=== PATIENT | male | born 1955 | race Caucasian/White ===

== ENCOUNTER → 2016-06-04 | Outpatient (CLI) | payer MEDICARE ==
[2016-06-04 13:54] LABS: Basophils % (A) 0 %; CH 28.2; CHCM 32.2; Eosinophils # (A) 0.2 k/uL (0-0.7); Eosinophils % (A) 2 %; HCT 45.1 % (39.0-53.0); HDW 2.77; HGB 14.4 gm/dL (13.0-17.5); Luc # (Auto) 0.23; Luc % (Auto) 2; Lymphocytes # (A) 2.4 k/uL (1.0-4.8); Lymphocytes % (A) 22 %; MCH 28.2 pg (25.0-35.0); Mean Platelet Volume 7.7; Monocytes # (A) 0.4 k/uL (0-1.0); Monocytes % (A) 4 %; Neutrophils # (A) 7.6 k/uL (1.3-7.7); Neutrophils % (A) 70 %; RBC 5.12 m/uL (4.30-5.90); RDW 12.5 % (11.5-15.5); WBC 10.8 k/uL (3.8-10.6); WBC (Perox) 10.88
[2016-06-04 14:05] LABS: Anion Gap 12 mmol/L; Blood Urea Nitrogen 17 mg/dL (9-20); Carbon Dioxide 29 mmol/L (22-30); Chloride 100 mmol/L (98-107); Non-African American GFR(MDRD) >60 (>60 ml/min/1.73 sqM); Sodium 141 mmol/L (137-145)
== END | disposition home or self-care (01) ==
LOC: LABPAT 13:03
PROVIDERS: ATTEND Internal Medicine Interventional Cardiology
DX: Z01.812 Encounter for preprocedural laboratory examination (principal); E78.00 Pure hypercholesterolemia, unspecified; I25.10 Atherosclerotic heart disease of native coronary artery without angina pectoris; I10 Essential (primary) hypertension
CPT/HCPCS: 80051; 82565; 84520; 85025

== ENCOUNTER 2016-06-10 05:59 | Day surgery (SDC) | payer MEDICARE, OTHER ==
[2016-06-08 10:02] VITALS: BMI 35.2
[~2016-06-10 05:59] MED LIST: ALPRAZolam 0.25 MG TAB PO PRN; ALPRAZolam 0.5 MG TAB PO PRN; ASPIRIN 325 MG TAB PO STA; ATORVASTATIN 80 MG TAB PO STA; NITROGLYCERIN SL TABS 0.4 MG TAB SUBLINGUAL PRN; SODIUM CHLORIDE 0.9% 1,000 ML in EMPTY BAG 1 BAG IV ONE
[2016-06-10 06:45] LABS: Glucose,Whole Blood 223 mg/dL (75-99)
[2016-06-10] MEDS ORDERED: SODIUM CHLORIDE 0.9% 1,000 ML IV ONE (06:47)
[2016-06-10] MEDS ORDERED: amLODIPine 5 MG TAB PO STA (07:16)
[2016-06-10] MEDS ORDERED: INSULIN LISPRO (humaLOG) 300 UNIT/3 ML VIAL SQ ONE (07:17)
[2016-06-10] MEDS ORDERED: SODIUM CHLORIDE 0.9% (PF) 10 ML VIAL ONE (07:18)
[2016-06-10] MEDS ORDERED: VERAPAMIL 2.5 MG/ML 2 ML AMP ONE (07:18)
[2016-06-10] MEDS ORDERED: MIDAZOLAM 2 MG/2 ML VIAL ONE (07:18)
[2016-06-10] MEDS ORDERED: diphenhydrAMINE 50 MG/ML 1 ML VIAL ONE (07:18)
[2016-06-10] MEDS ORDERED: diphenhydrAMINE 50 MG/ML 1 ML VIAL IVP ONE (07:34)
[2016-06-10] MEDS: MIDAZOLAM 2 MG/2 ML VIAL IV ONE ×2 (07:35→07:49)
[2016-06-10] MEDS ORDERED: LIDOCAINE 2% INJ 20 MG/ML SQ ONE (07:37)
[2016-06-10] MEDS: NITROGLYCERIN 1000MCG/10ML SYRINGE INTRACORON ONE ×3 (08:02→08:55)
[2016-06-10] MEDS ORDERED: BIVALIRUDIN 250 MG in SODIUM CHLORIDE 0.9% 50 ML IV ONE ×2 (08:16→08:53)
[2016-06-10] MEDS ORDERED: BIVALIRUDIN BOLUS 250 MG/50 ML IV ONE (08:16)
[2016-06-10] MEDS ORDERED: HYDROmorphone 2 MG/ML 1 ML SYRINGE ONE (08:56)
[2016-06-10] MEDS ORDERED: HYDROmorphone 2 MG/ML 1 ML SYRINGE IV ONE (08:58)
[2016-06-10] MEDS ORDERED: IOHEXOL 350 MG/ML 100 ML BOTTLE INJ ONE (08:58)
[2016-06-10] MEDS ORDERED: amLODIPine 5 MG TAB ONE (09:01)
[2016-06-10] MEDS ORDERED: CLOPIDOGREL 75 MG TAB ONE (09:02)
[2016-06-10] MEDS ORDERED: CLOPIDOGREL 75 MG TAB PO ONE (09:04)
[2016-06-10] MEDS ORDERED: NITROGLYCERIN SL TABS 0.4 MG TAB SUBLINGUAL ONE ×2 (09:04)
[2016-06-10] MEDS ORDERED: amLODIPine 5 MG TAB PO ONE (09:04)
[2016-06-10] MEDS ORDERED: NITROGLYCERIN SL TABS 0.4 MG TAB SUBLINGUAL PRN ×2 (09:08→09:12)
[2016-06-10] MEDS ORDERED: RX INFO: IV CONTRAST WAS GIVEN 1 EACH MISC MISCELLANE PRN (09:08)
[2016-06-10] MEDS ORDERED: ATROPINE SULFATE 0.1 MG/ML 10ML SYRINGE IV PRN (09:08)
[2016-06-10] MEDS ORDERED: MAG HYDROX/AL HYDROX/SIMETH 30 ML CUP PO PRN (09:08)
[2016-06-10] MEDS: SODIUM CHLORIDE 0.9% 1,000 ML IV SCH ×2 (09:15→22:35)
[2016-06-10] MEDS ORDERED: ACETAMINOPHEN TAB 325 MG TAB PO STA ×2 (09:38→09:39)
[2016-06-10] MEDS ORDERED: NITROGLYCERIN SL TABS 0.4 MG TAB SUBLINGUAL STA (11:50)
[2016-06-10] MEDS ORDERED: MIDAZOLAM 2 MG/2 ML VIAL IV ONE (11:59)
[2016-06-10] MEDS: INSULIN LISPRO (humaLOG) 300 UNIT/3 ML VIAL SQ SCH ×2 (14:32→17:19)
[2016-06-10] MEDS: oxyCODONE-APAP 10-325MG 1 EACH TAB PO PRN ×2 (14:33→23:22)
[2016-06-10 16:57] LABS: Glucose,Whole Blood 248 mg/dL (75-99)
[2016-06-10] MEDS ORDERED: ACETAMINOPHEN TAB 325 MG TAB PO PRN (19:42)
[2016-06-10] MEDS: PREGABALIN 100 MG CAP PO SCH (20:51)
[2016-06-10] MEDS: METOPROLOL TARTRATE 25 MG TAB PO SCH (20:51)
[2016-06-10] MEDS ORDERED: INSULIN DETEMIR 100 UNIT/ML 10 ML VIAL SQ SCH (21:00)
[2016-06-10] MEDS ORDERED: QUEtiapine 25 MG TAB PO SCH (21:00)
[2016-06-10] MEDS ORDERED: PRAVASTATIN SODIUM 80 MG TAB PO SCH (21:00)
[2016-06-10] MEDS ORDERED: ZOLPIDEM 5 MG TAB PO PRN (21:00)
[2016-06-10 21:34] LABS: Glucose,Whole Blood 151 mg/dL (75-99)
[2016-06-11 03:15] LABS: Glucose,Whole Blood 230 mg/dL (75-99)
[2016-06-11 06:30] LABS: Glucose,Whole Blood 212 mg/dL (75-99)
[2016-06-11 06:31] LABS: Basophils % (A) 0 %; CH 28.2; CHCM 32.5; Eosinophils # (A) 0.2 k/uL (0-0.7); Eosinophils % (A) 2 %; HCT 39.7 % (39.0-53.0); HDW 2.81; HGB 12.7 gm/dL (13.0-17.5); Luc # (Auto) 0.24; Luc % (Auto) 2; Lymphocytes # (A) 2.2 k/uL (1.0-4.8); Lymphocytes % (A) 22 %; MCHC 32.1 g/dL (31.0-37.0); Mean Platelet Volume 7.6; Monocytes # (A) 0.6 k/uL (0-1.0); Monocytes % (A) 6 %; Neutrophils # (A) 6.6 k/uL (1.3-7.7); Neutrophils % (A) 67 %; RBC 4.56 m/uL (4.30-5.90); RDW 12.7 % (11.5-15.5); WBC 9.9 k/uL (3.8-10.6); WBC (Perox) 10.74
[2016-06-11 06:47] LABS: Anion Gap 8 mmol/L; Blood Urea Nitrogen 13 mg/dL (9-20); Carbon Dioxide 29 mmol/L (22-30); Chloride 103 mmol/L (98-107); Glucose 214 mg/dL (74-99); Non-African American GFR(MDRD) >60 (>60 ml/min/1.73 sqM); Potassium 4.8 mmol/L (3.5-5.1); Sodium 140 mmol/L (137-145)
[2016-06-11] MEDS: INSULIN LISPRO (humaLOG) 300 UNIT/3 ML VIAL SQ SCH (07:02)
--- NOTE | 2016-06-11 07:50 | CC ---
DATE OF SERVICE: 06/10/2016 PROCEDURE: Left heart catheterization and coronary angiography. PERFORMED BY: Dr. Marycruz Martinez. CLINICAL INFORMATION: Mr. Jeremiah Pedroza is a 61-year-old gentleman with a history of diabetes mellitus, prior myocardial infarction, status post PTCA and stenting of mid RCA as well as PDA branch of RCA, which was performed in 2006 and 2010 respectively. He was hospitalized at [facility] with symptoms of nondescript chest discomfort and had a mild troponin elevation and also had pneumonia at that time. He was treated medically and then I performed a stress test as an outpatient which revealed a moderate area of reversible defect involving the inferolateral wall of the left ventricle which was a new finding compared to his previous stress test. He was therefore advised cardiac catheterization. He was also advised that he would have intervention based on findings. Yovany test was performed and it was found that his right radial artery was not suitable for coronary angiography. PROCEDURE NOTE: Under strict aseptic precautions and local anesthesia, a 6 Italian introducer was placed in the right femoral artery. I had considerable difficulty because of advancing the wire and there was heavy calcification of his femoral system. However, using a Amplatz wire, I was able to advance a 6 Italian introducer. There was a small hematoma noted. Using standard Luis Angel catheters, I performed coronary angiography and I noted that there was a significant new lesion in the circumflex vessel and he was advised intervention in the same setting. An LV gram was not performed but LV pressures were checked. CARDIAC CATHETERIZATION FINDINGS: The left ventricular end-diastolic pressure was about 14 mmHg and there was no gradient across the aortic valve. CORONARY ANGIOGRAPHIC FINDINGS. RIGHT CORONARY ARTERY: This is a dominant vessel, which is widely patent in the midportion and the PDA at the site of previous stenting. There are, however, multiple areas of 30% to 35% narrowing throughout the RCA and its branches. The PDA has about a 50% stenosis in the mid portion as well. There is diffuse disease in the dominant RCA, but the stented areas are widely patent and there are no critical lesions. LEFT MAIN CORONARY ARTERY: A short, patent, disease-free vessel that bifurcates into LAD and circumflex. LEFT ANTERIOR DESCENDING CORONARY ARTERY: Good caliber vessel extends along the anterior wall. In the mid portion, it gives off a diagonal branch, which has about a 40% to 50% narrowing. The LAD itself has no more than 30% to 40% narrowing, it runs all the way to the apex, supplies a sizable amount of myocardium. While there is diffuse disease in the LAD, there are no critical blockages and the diagonal disease also appears to be unchanged compared to the previous study from 2011. LEFT POSTERIOR CIRCUMFLEX CORONARY ARTERY: This is a nondominant vessel that gives off a left atrial circumflex branch and continues as an obtuse marginal branch. This obtuse marginal branch gives off a groove branch. This groove branch has a 99% stenosis with calcification but the vessel is small in caliber, diffusely diseased and distribution is small to moderate area. The continuation of the obtuse marginal which continues really as a circumflex vessel, has a long area of eccentric narrowing of about 80% and the vessel is highly diseased throughout but distally it is a large distribution vessel, with diffuse disease. The focal lesion is located after the groove branch and is about 70% to 80% heavily calcified, eccentric in appearance. FINAL IMPRESSION: This patient has a widely patent RCA and PDA at the site of previous stenting but there are diffuse areas noncritical narrowing in the dominant RCA. LAD and left main are free of significant disease, but there is evidence of diffuse noncritical narrowing in the LAD system. Circumflex is nondominant. It has a new 70% to 80% mid lesion after a left atrial circumflex branch. The groove branch has a 95% stenosis with calcification and the vessel is diffusely diseased. Left ventriculogram was not performed but LV pressures are acceptable and there is no gradient across the aortic valve. RECOMMENDATIONS: I am recommending intervention of the circumflex vessel and I proceeded to perform this in the same setting.
--- NOTE | 2016-06-11 07:56 | PTCA ---
DATE OF SERVICE: 06/10/2016 PROCEDURE: PTCA and stenting of the circumflex coronary artery. PERFORMED BY: Dr. Marycruz Martinez. CLINICAL INFORMATION: Mr. Jeremiah Pedroza is a 61-year-old gentleman with a history of diabetes mellitus, prior myocardial infarction, status post PTCA and stenting of mid RCA as well as PDA branch of RCA, which was performed in 2006 and 2010 respectively. He was hospitalized at [facility] with symptoms of nondescript chest discomfort and had a mild troponin elevation and also had pneumonia at that time. He was treated medically and then I performed a stress test as an outpatient which revealed a moderate area of reversible defect involving the inferolateral wall of the left ventricle which was a new finding compared to his previous stress test. He was therefore advised cardiac catheterization. He was also advised that he would have intervention based on findings. Yovany test was performed and it was found that his right radial artery was not suitable for coronary angiography. Following coronary angiography, I recommended intervention of the circumflex and proceeded to perform this in the same setting. PROCEDURE NOTE: The existing 6 Bruneian introducer in the right femoral artery was used to perform the procedure. A standard left Luis Angel-type guide catheter of 6 Bruneian caliber was used to cannulate the left coronary artery. A BMW wire was used to cross the lesion. Wire was kept distally. Using a 2.5 caliber, 12 mm balloon, I predilated the lesion at about 12 atmospheres. A noncompliant balloon was used because of calcification. I then deployed a 15 mm long, 2.5 caliber Xience stent at 12 atmospheres. Patient had an excellent angiographic result, but the proximal end revealed a small flap. I advanced another Whisper wire and tried to gain access into the groove branch, but I had considerable difficulty because of the angulation of the groove branch as it came off from the circumflex vessel. I therefore decided to stent across the groove branch with the understanding that he may have a branch vessel occlusion because of significant ostial lesion. I explained this to the patient and proceeded to deploy another stent. I used a 2.25 caliber, 15 mm long Xience stent and deployed this telescoping into the previously placed 2.5 caliber stent. This was deployed at 12 atmospheres. Excellent angiographic result was achieved. There was a transient occlusion of the groove branch, but after additional nitroglycerin and injections, there was already restored flow in the groove branch. Excellent angiographic result was noted without complication. Patient did not have any significant chest discomfort. He had transient jaw pain and subtle inferior ST segment changes. He received Angiomax bolus and infusion. He was already on Plavix and received an additional 150 mg orally. The sheath was sutured and patient was sent to the room in stable condition. Excellent angiographic result was achieved without complication.
--- NOTE | 2016-06-11 08:00 | LTR ---
June 10, 2016 EMMIE SUTOTN DO RE: Jeremiah Pedroza Dear Dr. Sutton: Thank you for the opportunity to participate in the care of Mr. Jeremiah Pedroza. I am pleased to report to you that he had an excellent angiographic result. This gentleman's previously stented RCA was patent as was the PDA branch of RCA. New lesion in the circumflex was addressed with a drug-eluting stent. He should be on aspirin and Plavix without interruption at least for one year. Please find enclosed my detailed cardiac catheterization and PTCA report for your records. Thank you for your referral. Please call for questions. With kindest regards. Sincerely yours, JULIET HOSKINS MD
[2016-06-11] MEDS: PREGABALIN 100 MG CAP PO SCH (08:11)
[2016-06-11] MEDS: METOPROLOL TARTRATE 25 MG TAB PO SCH (08:11)
[2016-06-11] MEDS: oxyCODONE-APAP 10-325MG 1 EACH TAB PO PRN (08:11)
[2016-06-11 08:21] VITALS: BP 173/79; PULSE 76; RESP 16; TEMP 98.1
[2016-06-11] MEDS ORDERED: ASPIRIN 81 MG CHEW PO SCH ×2 (09:00)
[2016-06-11] MEDS ORDERED: ESCITALOPRAM 10 MG TAB PO SCH (09:00)
[2016-06-11] MEDS ORDERED: CLOPIDOGREL 75 MG TAB PO SCH ×2 (09:00→09:11)
--- NOTE | 2016-06-11 22:43 | DS ---
DATE OF ADMISSION: 06/10/2016 DATE OF DISCHARGE: 06/11/2016 DIAGNOSES: 1. Unstable angina. 2. Type 2 diabetes. 3. Hypertension. 4. Hypercholesterolemia. 5. Peripheral arterial disease, status post percutaneous coronary intervention of right coronary artery. Mr. Jeremiah Pedroza was brought in electively for a cardiac cath, possible PCI, because of an abnormal stress test. He had an inferolateral moderate-sized reversible defect suggestive of progression of disease. He has had previous RCA PCI in 2006 and 2010 involving the mid RCA and PDA branch of RCA. Coronary angiography revealed that the RCA and PDA were patent, but there was a new lesion in the circumflex, and this was addressed with 2 drug-eluting stents. Excellent angiographic result was achieved without complication. There was some difficulty with the groin access because of peripheral arterial disease, but there was no hematoma. The groin is clean and dry and soft. There is no bruit. This morning he is asymptomatic, ambulating without symptoms. Laboratory data and EKG are unremarkable. Blood pressure is 140/70. Pulse rate is about 70 per minute. S1, S2 heard normally. Lungs are clear. Abdomen and lower extremity exam is unchanged. Right groin is clean and dry. Central nervous system is normal. I am recommending that he can be discharged today after ambulation. Discharge instructions regarding activity, diet and medications were given, and he has an appointment to see me on June 15 at 8:30 a.m.
== END 2016-06-11 10:10 | disposition home or self-care (01) ==
LOC: CATHCVL 05:59 → 6SEL 09:14 → CATHCVL 06-11 10:10
PROVIDERS: ATTEND Internal Medicine Interventional Cardiology
DX: I25.110 Atherosclerotic heart disease of native coronary artery with unstable angina pectoris (principal); R94.39 Abnormal result of other cardiovascular function study; Z95.5 Presence of coronary angioplasty implant and graft; I25.2 Old myocardial infarction; E78.00 Pure hypercholesterolemia, unspecified; I10 Essential (primary) hypertension; E11.9 Type 2 diabetes mellitus without complications; E78.5 Hyperlipidemia, unspecified; I73.9 Peripheral vascular disease, unspecified; Z95.820 Peripheral vascular angioplasty status with implants and grafts; Z79.4 Long term (current) use of insulin; Z79.01 Long term (current) use of anticoagulants; Z79.84 Long term (current) use of oral hypoglycemic drugs; Z79.82 Long term (current) use of aspirin; Z79.891 Long term (current) use of opiate analgesic; Z79.899 Other long term (current) drug therapy; Z88.1 Allergy status to other antibiotic agents; Z87.891 Personal history of nicotine dependence
CPT/HCPCS: 93458; 80048; 85025; C9600; C1769 ×7; C1725; C1894 ×2; C1874; J2001; J2250; J1170; J1200; Q9967; J0583

== ENCOUNTER 2016-08-06 14:49 | Inpatient (IN) | payer MEDICARE, OTHER ==
[2016-08-06 14:59] VITALS: RESP 18
[2016-08-06] MEDS ORDERED: SODIUM CHLORIDE 0.9% 1,000 ML IV STA (15:16)
--- NOTE | 2016-08-06 15:29 | ED ---
Weakness HPI - General Chief complaint: Weakness Stated complaint: weakness Time Seen by Provider: 08/06/16 15:16 Source: EMS Mode of arrival: EMS - History of Present Illness Initial comments: Jonathan noticed there was a change in mental status he feels quite weak he said he has a hard time remembering what happened over the last 24 hours he denies any fall he does have a history of back pain and he does take Valium and Percocet for the period he denies any headaches no neck stiffness no blurred vision no slurred speech no abdominal pain no frequency urgency dysuria. He does have a history of heart disease he has a multiple stents in place. He denies any chest pain today no pleuritic chest pain no abdominal pain no frequency urgency dysuria no sinus symptoms of TIA or CVA - Related Data Home Medications Medication Instructions Recorded Confirmed Metoprolol Tartrate [Lopressor] 25 mg PO BID 10/26/13 08/06/16 Clopidogrel [Plavix] 75 mg PO DAILY 01/10/14 08/06/16 Nitroglycerin Sl Tabs [Nitrostat] 0.4 mg SUBLINGUAL Q5M PRN 01/10/14 08/06/16 Insulin Detemir [Levemir] 40 units INJ HS 06/08/16 08/06/16 Pravastatin Sodium [Pravachol] 80 mg PO HS 06/08/16 08/06/16 Pregabalin [Lyrica] 100 mg PO BID 06/08/16 08/06/16 oxyCODONE-APAP 10-325MG [Percocet 1 tab PO Q8H PRN 06/08/16 08/06/16 10-325 mg] Diazepam [Valium] 10 mg PO BID 08/06/16 08/06/16 Enalapril [Vasotec] 5 mg PO DAILY 08/06/16 08/06/16 Insulin Lispro [humaLOG Kwikpen] 12 unit SQ AC-TID 08/06/16 08/06/16 Naproxen 500 mg PO Q12HR 08/06/16 08/06/16 Omeprazole 20 mg PO DAILY 08/06/16 08/06/16 Allergies Allergy/AdvReac Type Severity Reaction Status Date / Time cephalexin monohydrate Allergy Nausea & Verified 08/06/16 15:11 [From Keflex] Vomiting & Diarrhea Review of Systems ROS Statement: Those systems with pertinent positive or pertinent negative responses have been documented in the HPI. ROS Other: All systems not noted in ROS Statement are negative. Past Medical History Past Medical History: Coronary Artery Disease (CAD), Chest Pain / Angina, CVA/ TIA, Diabetes Mellitus, GERD/Reflux, Hyperlipidemia, Hypertension, Memory Impairment Additional Past Medical History / Comment(s): ulcer in stomach , fell May 2013 and hit head and had a brain bleed-from possible TIA. History of Any Multi-Drug Resistant Organisms: MRSA Date of last positivie culture/infection: 2010 MDRO Source:: RESPIRATORY/UNSURE Past Surgical History: Heart Catheterization With Stent, Orthopedic Surgery, Tonsillectomy Additional Past Surgical History / Comment(s): bunionectomy, amy rotator cuff, HEART STENTS X3, LEFT LEG ARTERY X2 STENTS. COLONOSCOPY, Past Anesthesia/Blood Transfusion Reactions: Motion Sickness Date of Last Stent Placement:: 2006 Past Psychological History: Depression Smoking Status: Former smoker Past Alcohol Use History: None Reported Additional Past Alcohol Use History / Comment(s): QUIT SMOKING 2010, STARTED AT AGE [age] Past Drug Use History: None Reported - Past Family History Mother Family Medical History: No Reported History General Exam - General Exam Comments Initial Comments: General: The patient is awake and alert, in no distress, and does not appear acutely ill. GCS is 15 Skin: Skin is warm and dry and no rashes or lesions are noted. Eye: Pupils are equal, round and reactive to light, extra-ocular movements are intact; there is normal conjunctiva bilaterally. Ears, nose, mouth and throat: There are moist mucous membranes and no oral lesions. Neck: The neck is supple, there is no tenderness or JVD. Cardiovascular: There is a regular rate and rhythm. No murmur, rub or gallop is appreciated. Respiratory: To auscultation bilateral, no wheezing no rhonchi no distress respiratory mercedes noticed Gastrointestinal: Soft, tenderness noticed in the lower abdomen and right lower quadrant area and the left lower quadrant area Back: There is no tenderness to palpation in the midline. There is no obvious deformity. Musculoskeletal: Normal ROM, no tenderness, There is no pedal edema. There is no calf tenderness or swelling. No cords were appreciated. Neurological: CN II-XII intact, Cranial nerves III through XII are intact. There are no obvious motor or sensory deficits. Coordination appears grossly intact. Speech is normal. Psychiatric: Cooperative, appropriate mood & affect, normal judgment. Course Vital Signs 08/06/16 08/06/16 14:52 16:45 Temperature 98.5 F Pulse Rate 85 85 Respiratory 18 18 Rate Blood Pressure 142/68 130/63 O2 Sat by Pulse 99 Oximetry EKG Findings - EKG Comments: EKG Findings:: EKG is normal sinus rhythm ventricular rate is 82 ID interval is 154 QRS duration is 76 QT/QTc is 372/444 review of this EKG did not reveal any ST elevation or ST depression Medical Decision Making - Lab Data Result diagrams: 08/06/16 15:14 08/06/16 15:14 Lab Results 08/06/16 08/06/16 08/06/16 Range/Units 15:14 15:14 15:14 WBC 11.1 H (3.8-10.6) k/uL RBC 4.14 L (4.30-5.90) m/uL Hgb 11.9 L (13.0-17.5) gm/dL Hct 35.7 L (39.0-53.0) % MCV 86.2 (80.0-100.0) fL MCH 28.6 (25.0-35.0) pg MCHC 33.2 (31.0-37.0) g/dL RDW 13.6 (11.5-15.5) % Plt Count 248 (150-450) k/uL Neutrophils % 67 % Lymphocytes % 21 % Monocytes % 7 % Eosinophils % 2 % Basophils % 1 % Neutrophils # 7.5 (1.3-7.7) k/uL Lymphocytes # 2.3 (1.0-4.8) k/uL Monocytes # 0.8 (0-1.0) k/uL Eosinophils # 0.2 (0-0.7) k/uL Basophils # 0.1 (0-0.2) k/uL PT (9.0-12.0) sec INR (<1.1) APTT (22.0-30.0) sec Sodium 140 (137-145) mmol/L Potassium 5.6 H (3.5-5.1) mmol/L Chloride 106 (98-107) mmol/L Carbon Dioxide 22 (22-30) mmol/L Anion Gap 12 mmol/L BUN 33 H (9-20) mg/dL Creatinine 1.12 (0.66-1.25) mg/dL Est GFR (MDRD) Af Amer >60 (>60 ml/min/1.73 sqM) Est GFR (MDRD) Non-Af >60 (>60 ml/min/1.73 sqM) Glucose 160 H (74-99) mg/dL Calcium 9.2 (8.4-10.2) mg/dL Total Bilirubin 0.9 (0.2-1.3) mg/dL AST 59 (17-59) U/L ALT 30 (21-72) U/L Alkaline Phosphatase 99 (38-126) U/L Total Creatine Kinase 1268 H (55-170) U/L CK-MB (CK-2) 17.0 H* (0.0-2.4) ng/mL CK-MB (CK-2) Rel Index 1.3 Troponin I 0.694 H* (0.000-0.034) ng/mL Total Protein 6.4 (6.3-8.2) g/dL Albumin 3.6 (3.5-5.0) g/dL Urine Color Urine Appearance (Clear) Urine pH (5.0-8.0) Ur Specific [place] (1.001-1.035) Urine Protein (Negative) Urine Glucose (UA) (Negative) Urine Ketones (Negative) Urine Blood (Negative) Urine Nitrite (Negative) Urine Bilirubin (Negative) Urine Urobilinogen (<2.0) mg/dL Ur Leukocyte Esterase (Negative) Urine Opiates Screen (NotDetected) Ur Oxycodone Screen (NotDetected) Urine Methadone Screen (NotDetected) Ur Propoxyphene Screen (NotDetected) Ur Barbiturates Screen (NotDetected) U Tricyclic Antidepress (NotDetected) Ur Phencyclidine Scrn (NotDetected) Ur Amphetamines Screen (NotDetected) U Methamphetamines Scrn (NotDetected) U Benzodiazepines Scrn (NotDetected) Urine Cocaine Screen (NotDetected) U Marijuana (THC) Screen (NotDetected) 08/06/16 08/06/16 Range/Units 15:14 16:46 WBC (3.8-10.6) k/uL RBC (4.30-5.90) m/uL Hgb (13.0-17.5) gm/dL Hct (39.0-53.0) % MCV (80.0-100.0) fL MCH (25.0-35.0) pg MCHC (31.0-37.0) g/dL RDW (11.5-15.5) % Plt Count (150-450) k/uL Neutrophils % % Lymphocytes % % Monocytes % % Eosinophils % % Basophils % % Neutrophils # (1.3-7.7) k/uL Lymphocytes # (1.0-4.8) k/uL Monocytes # (0-1.0) k/uL Eosinophils # (0-0.7) k/uL Basophils # (0-0.2) k/uL PT 10.1 (9.0-12.0) sec INR 1.0 (<1.1) APTT 24.5 (22.0-30.0) sec Sodium (137-145) mmol/L Potassium (3.5-5.1) mmol/L Chloride (98-107) mmol/L Carbon Dioxide (22-30) mmol/L Anion Gap mmol/L BUN (9-20) mg/dL Creatinine (0.66-1.25) mg/dL Est GFR (MDRD) Af Amer (>60 ml/min/1.73 sqM) Est GFR (MDRD) Non-Af (>60 ml/min/1.73 sqM) Glucose (74-99) mg/dL Calcium (8.4-10.2) mg/dL Total Bilirubin (0.2-1.3) mg/dL AST (17-59) U/L ALT (21-72) U/L Alkaline Phosphatase (38-126) U/L Total Creatine Kinase (55-170) U/L CK-MB (CK-2) (0.0-2.4) ng/mL CK-MB (CK-2) Rel Index Troponin I (0.000-0.034) ng/mL Total Protein (6.3-8.2) g/dL Albumin (3.5-5.0) g/dL Urine Color Yellow Urine Appearance Clear (Clear) Urine pH 5.5 (5.0-8.0) Ur Specific [place] 1.012 (1.001-1.035) Urine Protein Negative (Negative) Urine Glucose (UA) 1+ H (Negative) Urine Ketones 1+ H (Negative) Urine Blood Negative (Negative) Urine Nitrite Negative (Negative) Urine Bilirubin Negative (Negative) Urine Urobilinogen <2.0 (<2.0) mg/dL Ur Leukocyte Esterase Negative (Negative) Urine Opiates Screen Not Detected (NotDetected) Ur Oxycodone Screen Detected H (NotDetected) Urine Methadone Screen Not Detected (NotDetected) Ur Propoxyphene Screen Not Detected (NotDetected) Ur Barbiturates Screen Not Detected (NotDetected) U Tricyclic Antidepress Detected H (NotDetected) Ur Phencyclidine Scrn Not Detected (NotDetected) Ur Amphetamines Screen Not Detected (NotDetected) U Methamphetamines Scrn Not Detected (NotDetected) U Benzodiazepines Scrn Detected H (NotDetected) Urine Cocaine Screen Not Detected (NotDetected) U Marijuana (THC) Screen Not Detected (NotDetected) Critical Care Time Total Critical Care Time: 45 Critical Care Time: Isn't presented with the amnesia and altered mental status, his head CT head CT was done and was unremarkable considering his history of coronary artery disease and his cardiac status was checked and her troponin is 0.6492 year no chest pain also noticed some elevated CK he was started on a fluid resuscitation and heparinize him with the bolus and infusion potassium is bit high at 5.61 given some Kayexalate admitted to Dr. Ramirez service and will consult cardiology Disposition Clinical Impression: Change in mental status, Amnesia, Elevated troponin, Rhabdomyolysis Disposition: ADMITTED IP TO THIS HOSP Referrals: Tr Naqvi DO [Primary Care Provider] - 1-2 days
[2016-08-06 15:30] LABS: Basophils # (A) 0.1 k/uL (0-0.2); Basophils % (A) 1 %; CH 27.8; CHCM 32.4; Eosinophils # (A) 0.2 k/uL (0-0.7); Eosinophils % (A) 2 %; HCT 35.7 % (39.0-53.0); HDW 3.03; HGB 11.9 gm/dL (13.0-17.5); Luc # (Auto) 0.29; Luc % (Auto) 3; Lymphocytes # (A) 2.3 k/uL (1.0-4.8); Lymphocytes % (A) 21 %; MCH 28.6 pg (25.0-35.0); MCHC 33.2 g/dL (31.0-37.0); MCV 86.2 fL (80.0-100.0); Mean Platelet Volume 7.9; Monocytes # (A) 0.8 k/uL (0-1.0); Monocytes % (A) 7 %; Neutrophils # (A) 7.5 k/uL (1.3-7.7); Neutrophils % (A) 67 %; RBC 4.14 m/uL (4.30-5.90); RDW 13.6 % (11.5-15.5); WBC 11.1 k/uL (3.8-10.6); WBC (Perox) 11.09
[2016-08-06 15:37] LABS: Partial Thromboplastin Time 24.5 sec (22.0-30.0); Prothrombin Time 10.1 sec (9.0-12.0)
[2016-08-06 15:46] LABS: ALT 30 U/L (21-72); AST 59 U/L (17-59); Alkaline Phosphatase 99 U/L (38-126); Anion Gap 12 mmol/L; Blood Urea Nitrogen 33 mg/dL (9-20); Calcium 9.2 mg/dL (8.4-10.2); Carbon Dioxide 22 mmol/L (22-30); Chloride 106 mmol/L (98-107); Glucose 160 mg/dL (74-99); Non-African American GFR(MDRD) >60 (>60 ml/min/1.73 sqM); Sodium 140 mmol/L (137-145); Total Bilirubin 0.9 mg/dL (0.2-1.3); Total Protein 6.4 g/dL (6.3-8.2)
[2016-08-06 15:53] LABS: Potassium 5.6 mmol/L (3.5-5.1)
--- NOTE | 2016-08-06 16:10 | XR ---
EXAMINATION TYPE: XR chest 2V DATE OF EXAM: 08/06/2016 4:07 PM COMPARISON: 11/15/2013 TECHNIQUE: PA and lateral views submitted. HISTORY: Weakness, angina FINDINGS: The lungs are clear and there is no pneumothorax, pleural effusion, or focal pneumonia. Heart is pr ominent. Arthropathy of the shoulder. IMPRESSION: 1. No acute process.
--- NOTE | 2016-08-06 16:11 | XR ---
EXAMINATION TYPE: XR KUB DATE OF EXAM: 08/06/2016 4:07 PM COMPARISON: NONE HISTORY: Pain TECHNIQUE: One view abdominal series FINDINGS: The osseous structures are intact. The bowel gas pattern is nonspecific. Arthropathy of the hips wit h possible femoral acetabular impingement. Vascular calcifications noted. Retained fecal debris throu ghout the colon.. IMPRESSION: 1. Nonspecific abdomen.
--- NOTE | 2016-08-06 16:13 | CT ---
EXAMINATION TYPE: CT brain wo con DATE OF EXAM: 08/06/2016 3:56 PM HISTORY: Weakness. CT DLP: 1042.60 mGycm. Automated Exposure Control for Dose Reduction was Utilized. TECHNIQUE: CT scan of the head is performed without contrast. COMPARISON: CT brain May 22, 2013.. FINDINGS: There is no acute intracranial hemorrhage or midline shift identified. There is diffuse v entricular and sulcal prominence consistent with diffuse age-related cerebral atrophy. There is low- attenuation in the periventricular white matter consistent with chronic small vessel ischemic change. There is area of encephalomalacia right frontal lobe near axial image 33 redemonstrated felt stable. The globes are intact and the visualized sinuses are clear. IMPRESSION: No acute intracranial hemorrhage or midline shift. There is mild to moderate diffuse ag e-related cerebral atrophy and chronic small vessel ischemic change with more focal old infarct right frontal lobe all redemonstrated.
[2016-08-06 16:18] LABS: Troponin I 0.694 ng/mL (0.000-0.034)
[2016-08-06 16:56] LABS: Appearance,Urine Clear (Clear); Bilirubin,Urine Negative (Negative); Glucose,Urine (UA) 1+ (Negative); Ketones,Urine 1+ (Negative); Leukocyte Esterase,Urine Negative (Negative); Nitrite,Urine Negative (Negative); PH, Urine 5.5 (5.0-8.0); Protein,Urine Negative (Negative); Specific Gravity,Urine 1.012 (1.001-1.035); UA Billing (MACRO vs. MICRO) CHEM; Urobilinogen,Urine <2.0 mg/dL (<2.0)
[2016-08-06] MEDS ORDERED: MORPHINE SULFATE 2 MG/ML SYRINGE IVP PRN (17:57)
[2016-08-06] MEDS ORDERED: HEPARIN SODIUM,PORCINE 5,000 UNIT/ML 1 ML VIAL IV ONE (17:57)
[2016-08-06] MEDS ORDERED: NITROGLYCERIN SL TABS 0.4 MG TAB SUBLINGUAL PRN ×2 (17:57→18:03)
[2016-08-06] MEDS ORDERED: SODIUM POLYSTYRENE SULFONATE 15 GM/60 ML BOTTLE PO STA (18:04)
[2016-08-06] MEDS: HEPARIN SODIUM,PORCINE/D5W PMX 25,000 UNIT in DEXTROSE/WATER 1 500ML.BAG IV SCH ×2 (18:20→18:23)
[2016-08-06 20:38] VITALS: BMI 37.0
[2016-08-06 20:42] LABS: Glucose,Whole Blood 197 mg/dL (75-99)
[2016-08-06] MEDS ORDERED: ATORVASTATIN 40 MG TAB PO SCH (21:00)
--- NOTE | 2016-08-06 21:18 | P.CNNES ---
History of Present Illness Consult date: 08/06/16 Reason for Consult: Patient admitted with altered mental status and weakness. History of Present Illness: This patient is a 61-year-old right-handed white male who was admitted to Hospital with symptoms of weakness and lower extremity pain. Patient has a history of chronic back pain symptoms for which she has been taking Valium and Percocet for years. He has also undergone multiple injections to the back. Apparently he had increasing weakness and inability to stand as his knees were giving out for him. He was also noted having decreased mental status changes and confusion. For this reason he was brought into the emergency room where he was seen in the ER by Dr. Garcia. He was sent for a computed tomography scan of the brain which revealed no acute intracranial abnormality. There was mild to moderate diffuse age-related atrophy noted. Evidence of an old right frontal lobe infarct was redemonstrated. Patient states that most of his trouble seems to be in the legs. He does have history of underlying diabetes mellitus and apparently his blood sugars have been out of control. He likely has moderate to severe degree of peripheral neuropathy secondary to his diabetes. We will check his hemoglobin A1c. Patient denies any headache or slurred speech. He is following all commands at this time. Patient is now admitted and neurology has been consulted for further evaluation and recommendations. Review of Systems Constitutional: Denies chills, Denies fever Eyes: denies blurred vision, denies pain Ears, nose, mouth and throat: Denies headache, Denies sore throat Cardiovascular: Denies chest pain, Denies shortness of breath Respiratory: Denies cough Gastrointestinal: Denies abdominal pain, Denies diarrhea, Denies nausea, Denies vomiting Musculoskeletal: Denies myalgias Integumentary: Denies pruritus, Denies rash Neurological: Reports change in mentation, Reports confusion, Reports memory loss, Reports paresthesias, Reports tingling, Denies numbness, Denies weakness Psychiatric: Denies anxiety, Denies depression Endocrine: Denies fatigue, Denies weight change Past Medical History Past Medical History: Coronary Artery Disease (CAD), Chest Pain / Angina, CVA/ TIA, Diabetes Mellitus, GERD/Reflux, Hyperlipidemia, Hypertension, Memory Impairment Additional Past Medical History / Comment(s): ulcer in stomach , fell May 2013 and hit head and had a brain bleed-from possible TIA. History of Any Multi-Drug Resistant Organisms: MRSA Date of last positivie culture/infection: 2010 MDRO Source:: RESPIRATORY/UNSURE Past Surgical History: Heart Catheterization With Stent, Orthopedic Surgery, Tonsillectomy Additional Past Surgical History / Comment(s): bunionectomy, amy rotator cuff, HEART STENTS X3, LEFT LEG ARTERY X2 STENTS. COLONOSCOPY, Past Anesthesia/Blood Transfusion Reactions: Motion Sickness Date of Last Stent Placement:: 2006 Past Psychological History: Depression Smoking Status: Former smoker Past Alcohol Use History: None Reported Additional Past Alcohol Use History / Comment(s): QUIT SMOKING 2010, STARTED AT AGE [age] Past Drug Use History: None Reported - Past Family History Mother Family Medical History: No Reported History Medications and Allergies Home Medications Medication Instructions Recorded Confirmed Type Metoprolol Tartrate [Lopressor] 25 mg PO BID 10/26/13 08/06/16 History Clopidogrel [Plavix] 75 mg PO DAILY 01/10/14 08/06/16 History Nitroglycerin Sl Tabs [Nitrostat] 0.4 mg SUBLINGUAL Q5M PRN 01/10/14 08/06/16 History Insulin Detemir [Levemir] 40 units INJ HS 06/08/16 08/06/16 History Pravastatin Sodium [Pravachol] 80 mg PO HS 06/08/16 08/06/16 History Pregabalin [Lyrica] 100 mg PO BID 06/08/16 08/06/16 History oxyCODONE-APAP 10-325MG [Percocet 1 tab PO Q8H PRN 06/08/16 08/06/16 History 10-325 mg] Diazepam [Valium] 10 mg PO BID 08/06/16 08/06/16 History Enalapril [Vasotec] 5 mg PO DAILY 08/06/16 08/06/16 History Insulin Lispro [humaLOG Kwikpen] 12 unit SQ AC-TID 08/06/16 08/06/16 History Naproxen 500 mg PO Q12HR 08/06/16 08/06/16 History Omeprazole 20 mg PO DAILY 08/06/16 08/06/16 History Allergies Allergy/AdvReac Type Severity Reaction Status Date / Time cephalexin monohydrate Allergy Nausea & Verified 08/06/16 15:11 [From Keflex] Vomiting & Diarrhea Physical Examination - Vital Signs Vital Signs: Vital Signs Temp Pulse Resp BP Pulse Ox 08/06/16 18:00 98.7 F 74 18 121/77 98 Intake and Output 08/06/16 08/06/16 08/06/16 06:59 14:59 22:59 Intake Total 900 Balance 900 Intake: Amount of Fluid Infused ( 900 ml) - Constitutional General appearance: average body habitus, cooperative - EENT EENT: PERRL, mucous membranes moist - Respiratory Respiratory: lungs clear, normal breath sounds - Cardiovascular Cardiovascular: regular rate, normal S1, normal S2 Extremities: no peripheral edema bilaterally - Gastrointestinal Gastrointestinal: normoactive bowel sounds - Integumentary Integumentary: normal - Neurologic Cranial nerve examination: PERRL, VFF, V1/V2/V3 grossly intact, face symmetric, intact gag reflex, intact corneal reflex, normal palatal elevation Speech examination: intact Sensorimotor examination: intact Motor examination - right side: 3/5: hip flexors, knee extensors, dorsiflexion, toe extension (EHL), plantarflexion, 4/5: biceps, triceps, wrist flexion, wrist extension, banquet line cook Motor examination - left side: 3/5: hip flexors, knee extensors, dorsiflexion, toe extension (EHL), plantarflexion, 4/5: biceps, triceps, wrist flexion, wrist extension, banquet line cook Detailed sensory examination: intact Reflex and gait examination: intact Reflexes: 1+: ankle, bicep, knee, tricep - Musculoskeletal Musculoskeletal: no pain - Psychiatric Psychiatric: mood/affect appropriate, cooperative Results - Laboratory Findings CBC and BMP: 08/06/16 15:14 08/06/16 15:14 Assessment and Plan (1) Acute encephalopathy Status: Acute Code(s): G93.40 - ENCEPHALOPATHY, UNSPECIFIED (2) Chronic low back pain Status: Acute Code(s): M54.5 - LOW BACK PAIN; G89.29 - OTHER CHRONIC PAIN (3) Elevated troponin Status: Acute Code(s): R74.8 - ABNORMAL LEVELS OF OTHER SERUM ENZYMES (4) Peripheral vascular disease Status: Acute Code(s): I73.9 - PERIPHERAL VASCULAR DISEASE, UNSPECIFIED Plan: This patient is a 61-year-old male being evaluated for altered mental status and chronic low back pain. Patient is undergone multiple epidural injections to the back and apparently today was having increased weakness and altered mental status. He is on various medications for her pain management. He has a history of recent stent placement and is currently on Plavix. Patient has been using Percocet and Valium for treatment of the back pain. It is unclear if he may have overdosed on these medications producing altered mentation. He was brought into the emergency room where he was seen by Dr. Garcia. He underwent a computed tomography scan of the brain which was negative for any acute stroke or hemorrhage. Moderate degree of cerebral atrophy was noted. Patient was subsequent admitted to Hospital. We would recommend physical therapy assessment for lower extremity weakness. He does have evidence suggesting moderate to severe diabetic peripheral neuropathy in the lower extremities. We will continue close neurological follow-up for this patient during this admission. His overall prognosis at this time remains very guarded. Time with Patient: Greater than 30
[2016-08-06] MEDS ORDERED: ALPRAZolam 0.25 MG TAB PO PRN (21:56)
[2016-08-06] MEDS: DIAZEPAM 5 MG TAB PO SCH (22:16)
[2016-08-06] MEDS: INSULIN DETEMIR 100 UNIT/ML 10 ML VIAL SQ SCH (22:16)
[2016-08-06] MEDS: METOPROLOL TARTRATE 25 MG TAB PO SCH (22:17)
[2016-08-06] MEDS: PRAVASTATIN SODIUM 80 MG TAB PO SCH (22:17)
[2016-08-06] MEDS: PREGABALIN 100 MG CAP PO SCH (22:29)
[2016-08-06 22:32] LABS: Creatine Kinase MB 14.6 ng/mL (0.0-2.4); Troponin I 0.567 ng/mL (0.000-0.034)
[2016-08-06] MEDS: oxyCODONE-APAP 10-325MG 1 EACH TAB PO PRN (23:22)
[2016-08-07] MEDS: HEPARIN SODIUM,PORCINE 5,000 UNIT/ML 1 ML VIAL IV PRN ×2 (03:27→09:28)
[2016-08-07 03:33] LABS: Basophils # (A) 0.1 k/uL (0-0.2); Basophils % (A) 1 %; CH 27.9; CHCM 32.5; Eosinophils # (A) 0.3 k/uL (0-0.7); Eosinophils % (A) 3 %; HCT 34.5 % (39.0-53.0); HDW 2.93; Luc # (Auto) 0.25; Luc % (Auto) 3; Lymphocytes # (A) 2.5 k/uL (1.0-4.8); Lymphocytes % (A) 27 %; MCH 27.4 pg (25.0-35.0); MCHC 31.7 g/dL (31.0-37.0); MCV 86.3 fL (80.0-100.0); Mean Platelet Volume 8.6; Monocytes # (A) 0.5 k/uL (0-1.0); Monocytes % (A) 6 %; Neutrophils # (A) 5.6 k/uL (1.3-7.7); Neutrophils % (A) 61 %; RDW 13.6 % (11.5-15.5); WBC 9.2 k/uL (3.8-10.6); WBC (Perox) 9.65
[2016-08-07 03:54] LABS: Anion Gap 10 mmol/L; Calcium 8.9 mg/dL (8.4-10.2); Carbon Dioxide 21 mmol/L (22-30); Chloride 111 mmol/L (98-107); Cholesterol 144 mg/dL (<200); Glucose 190 mg/dL (74-99); HDL Cholesterol 23 mg/dL (40-60); Non-African American GFR(MDRD) >60 (>60 ml/min/1.73 sqM); Sodium 142 mmol/L (137-145); Triglycerides 244 mg/dL (<150)
[2016-08-07 04:04] LABS: Blood Urea Nitrogen 22 mg/dL (9-20); Potassium 4.8 mmol/L (3.5-5.1)
[2016-08-07 04:27] LABS: Troponin I 0.383 ng/mL (0.000-0.034)
[2016-08-07 07:10] LABS: Glucose,Whole Blood 137 mg/dL (75-99)
[2016-08-07] MEDS: INSULIN LISPRO (humaLOG) 300 UNIT/3 ML VIAL SQ SCH ×7 (08:00→22:35)
[2016-08-07] MEDS: PANTOPRAZOLE 40 MG TABLET PO SCH (08:01)
--- NOTE | 2016-08-07 08:24 | HP ---
DATE OF ADMISSION: CHIEF COMPLAINT: Weakness and confusion. HISTORY OF PRESENT ILLNESS: This 61-year-old gentleman with a past medical history of multiple medical problems such as history of CAD, history of CVA, TIA, diabetes mellitus type 2, GERD, hypertension, hyperlipidemia, memory impairment, history of CAD, depression, history of nicotine dependence, being followed by Dr. Naqvi in the outpatient setting apparently was sleeping this morning and woke up from the couch and the patient was found to be confused and the patient had hard time remembering what happened. The patient was taken to [facility] and admitted for evaluation and treatment. The patient also complaining of weakness especially in the legs. Patient also is taking multiple pain medications. There is no history of fever, rigors, chills. No history of headache, loss of consciousness, seizures. No history of chest pain, palpitation or shortness of breath, hematochezia or melena at this time. After admission, WBC was 11.1, hemoglobin 11.9. Patient complains of some cough. Potassium 5.6. Troponin is 1.364 and creatine kinase is 1268 indicating some old rhabdomyolysis also. There is no history of trauma. PAST MEDICAL HISTORY: History of CAD, CVA, TIA, history of diabetes type 2, GERD, hypertension, hyperlipidemia, memory impairment, ulcer of stomach, methicillin-resistant Staphylococcus aureus, coronary artery disease and stent, depression. Medications prior to admission include home medications include: 1. Oxycodone that is Percocet 1 tablet p.o. q.8 p.r.n. 2. Lyrica 100 mg p.o. b.i.d. 3. Pravachol 80 mg p.o. q.h.s. 4. Omeprazole 20 mg p.o. daily. 5. Nitrostat 0.4 sublingual p.r.n. 6. Naprosyn 500 mg p.o. b.i.d. 7. Lopressor 25 mg p.o. b.i.d. 8. KwikPen 12 units a.c. t.i.d. 9. Levemir 40 units in at bedtime. 10. Vasotec 5 mg p.o. daily. 11. Valium 10 mg b.i.d. 12. Plavix 75 mg p.o. daily. ALLERGIES: CEPHALEXIN. FAMILY HISTORY: No history of heart disease or strokes in the family. SOCIAL HISTORY: Previous history of smoking, no history of smoking or alcohol currently. REVIEW OF SYSTEMS: ENT: No diminishing hearing. Diminished vision. CARDIOVASCULAR: As mentioned earlier. RESPIRATORY: As mentioned earlier. GI: No nausea. : No dysuria. NERVOUS SYSTEM: As mentioned earlier. ALLERGY/IMMUNOLOGY: No asthma or hayfever. MUSCULOSKELETAL: As mentioned earlier. HEMATOLOGY: No history of anemia. ENDOCRINE: As mentioned earlier. CONSTITUTIONAL: As mentioned earlier. DERMATOLOGY: Negative. RHEUMATOLOGY: Negative. PSYCHIATRY: As mentioned earlier. PHYSICAL EXAMINATION: Patient is alert and oriented x3. Pulse 96, blood pressure 125/58, respiration 18, temperature 97.2, pulse ox 96% on room air. HEENT: Conjunctivae normal. Oral mucosa moist. NECK: No jugular venous distention. No carotid bruit. No lymph node enlargement. CARDIOVASCULAR: S1 and S2, muffled. No S3, no S4. RESPIRATORY: Breath sounds diminished at the bases. Bilateral scattered rhonchi and crackles. ABDOMEN: Soft, obese, nontender. No mass palpable. LEGS: No edema, no swelling. NERVOUS SYSTEM: Higher function as mentioned. Moves all four limbs. No focal motor deficits. LYMPHATIC: No lymphadenopathy in the neck, axillae or groin. SKIN: No ulcer, rash or bleeding. LABS: WBC 11.1, hemoglobin 11.9, glucose 160. Troponin 0.694. ASSESSMENT: 1. Confusion, change in mental status, acute on chronic metabolic encephalopathy, multifactorial. 2. Possible acute rhabdomyolysis with increased creatine kinase. 3. Troponin 0.694, rule out acute non-ST elevation myocardial infarction. 4. Hyperkalemia. 5. Increased WBC. 6. Anemia, normocytic. 7. Possible respiratory infection. 8. History of coronary artery disease and stent. 9. History of cerebrovascular accident, transient ischemic attack. 10. Diabetes mellitus type 2. 11. Gastroesophageal reflux disease. 12. Chronic pain syndrome. 13. Hypertension, essential. 14. Hyperlipidemia. 15. History of memory impairment. 16. Ulcer of stomach. 17. History of methicillin-resistant Staphylococcus aureus. 18. History of head injury. 19. History of coronary artery disease and stent. 20. History of depression, not otherwise specified. 21. Remote history of nicotine dependence. 22. Obesity body mass index of 37. 23. Gait dysfunction. 24. Metabolic encephalopathy, possibly drug-induced. RECOMMENDATIONS AND DISCUSSION: In this 61-year-old gentleman who presented with multiple complex medical issues, we will monitor the patient closely. Continue the current medications. Continue symptomatic treatment. Continue the IV fluids. Cardiology consultation. Neurology will also be consulted. Symptomatic treatment will be provided and monitor blood sugars closely. See orders for details. Continue with antiplatelet agents. Guarded prognosis because of multiple complex medical issues. We will monitor the patient closely. Drug-induced metabolic encephalopathy is also consideration causing the confusion. In any case, we will continue to monitor closely in the hospital. Further recommendations to follow. PT, OT also will be evaluating. Copy of dictation forwarded to Dr. Naqvi, who is the primary physician.
[2016-08-07] MEDS: SODIUM CHLORIDE 0.9% 1,000 ML IV SCH ×3 (09:15→09:42)
[2016-08-07] MEDS: DIAZEPAM 5 MG TAB PO SCH ×2 (09:28→22:33)
[2016-08-07] MEDS: FOLIC ACID 1 MG TAB PO SCH (09:29)
[2016-08-07] MEDS: THIAMINE 100 MG TAB PO SCH (09:29)
[2016-08-07] MEDS: MULTIVITAMINS, THERA 1 EACH TAB PO SCH (09:29)
[2016-08-07] MEDS: ASPIRIN 325 MG TAB PO SCH (09:29)
[2016-08-07] MEDS: CLOPIDOGREL 75 MG TAB PO SCH (09:30)
[2016-08-07] MEDS: METOPROLOL TARTRATE 25 MG TAB PO SCH ×2 (09:30→22:34)
[2016-08-07] MEDS: LISINOPRIL 10 MG TAB PO SCH (09:30)
[2016-08-07] MEDS: PREGABALIN 100 MG CAP PO SCH (09:33)
[2016-08-07 12:09] LABS: Glucose,Whole Blood 115 mg/dL (75-99)
--- NOTE | 2016-08-07 12:51 | P.CRDCN ---
History of Present Illness Consult date: 08/07/16 Reason for Consult (text): elevated troponin Chief complaint: confusion, lower extremity weakness History of present illness: This is a pleasant 61-year-old gentleman who follows with Dr. Marco A Martinez in the office. Has a known history of coronary artery disease with most recent stent placement in June to the circumflex complaints of chest pain prior to intervention but none since, diabetes, hyperlipidemia, hypertension and chronic back pain. He has been following regularly in Dr. Cortez's office for treatment of low back pain and had a recent increase in his Lyrica dose. Yesterday he noticed sudden onset of confusion as well as lower extremity weakness. Denied any complaints of chest discomfort or shortness of breath. Upon admission EKG shows sinus rhythm without significant ST-T wave changes, computed tomography scan of the brain showed mild to moderate age-related atrophy and an old infarct in the right frontal lobe chest x-ray was negative for any acute cardiopulmonary process and KUB showed nonspecific abdomen. Laboratory values were significant for potassium 5.6 and this morning 4.8, BUN 33 and creatinine 1.12 CK was elevated at 1359, CK-MB 17 and troponin levels have been elevated at 0.694, 0.567 and 0.383. Upon examination, patient is resting comfortably in bed. He feels less confused but still has a length of significant lower extremity weakness and complaints of low back pain. Past Medical History Past Medical History: Coronary Artery Disease (CAD), Chest Pain / Angina, CVA/ TIA, Diabetes Mellitus, GERD/Reflux, Hyperlipidemia, Hypertension, Memory Impairment Additional Past Medical History / Comment(s): ulcer in stomach , fell May 2013 and hit head and had a brain bleed-from possible TIA. History of Any Multi-Drug Resistant Organisms: MRSA Date of last positivie culture/infection: 2010 MDRO Source:: RESPIRATORY/UNSURE Past Surgical History: Heart Catheterization With Stent, Orthopedic Surgery, Tonsillectomy Additional Past Surgical History / Comment(s): bunionectomy, amy rotator cuff, HEART STENTS X3, LEFT LEG ARTERY X2 STENTS. COLONOSCOPY, Past Anesthesia/Blood Transfusion Reactions: Motion Sickness Date of Last Stent Placement:: 2006 Past Psychological History: Depression Smoking Status: Former smoker Past Alcohol Use History: None Reported Additional Past Alcohol Use History / Comment(s): QUIT SMOKING 2010, STARTED AT AGE [age] Past Drug Use History: None Reported - Past Family History Mother Family Medical History: No Reported History Medications and Allergies Home Medications Medication Instructions Recorded Confirmed Type Metoprolol Tartrate [Lopressor] 25 mg PO BID 10/26/13 08/06/16 History Clopidogrel [Plavix] 75 mg PO DAILY 01/10/14 08/06/16 History Nitroglycerin Sl Tabs [Nitrostat] 0.4 mg SUBLINGUAL Q5M PRN 01/10/14 08/06/16 History Insulin Detemir [Levemir] 40 units INJ HS 06/08/16 08/06/16 History Pravastatin Sodium [Pravachol] 80 mg PO HS 06/08/16 08/06/16 History Pregabalin [Lyrica] 100 mg PO BID 06/08/16 08/06/16 History oxyCODONE-APAP 10-325MG [Percocet 1 tab PO Q8H PRN 06/08/16 08/06/16 History 10-325 mg] Diazepam [Valium] 10 mg PO BID 08/06/16 08/06/16 History Enalapril [Vasotec] 5 mg PO DAILY 08/06/16 08/06/16 History Insulin Lispro [humaLOG Kwikpen] 12 unit SQ AC-TID 08/06/16 08/06/16 History Naproxen 500 mg PO Q12HR 08/06/16 08/06/16 History Omeprazole 20 mg PO DAILY 08/06/16 08/06/16 History Allergies Allergy/AdvReac Type Severity Reaction Status Date / Time cephalexin monohydrate Allergy Nausea & Verified 08/06/16 15:11 [From Keflex] Vomiting & Diarrhea Physical Exam Vitals: Vital Signs Temp Pulse Pulse Resp BP BP Pulse Ox 08/07/16 03:20 98.1 F 79 18 124/58 95 08/06/16 23:15 98.1 F 94 18 124/76 97 08/06/16 20:23 97.2 F L 96 18 125/58 96 08/06/16 20:00 97.2 F L 79 18 125/58 96 08/06/16 18:00 98.7 F 74 18 121/77 98 Intake and Output 08/06/16 08/07/16 08/07/16 22:59 06:59 14:59 Intake Total 900 159.333 Balance 900 159.333 Intake: Amount of Fluid Infused ( 900 ml) Intake, IV Titration 159.333 Amount Heparin Sodium,Porcine/ 159.333 D5w Pmx 25,000 unit In Dextrose/Water 1 500ml. bag @ 8.68 UNITS/KG/HR 20 mls/hr IV .Q24H [facility] Rx#: [id number] Other: Voiding Method Urinal Urinal # Voids 2 Weight 120.3 kg 119.8 kg PHYSICAL EXAMINATION: HEENT: Head is atraumatic, normocephalic. Pupils equal, round. Neck is supple. There is no elevated jugular venous pressure. HEART EXAMINATION: Heart sounds regular, S1 and S2 normal. No murmur or gallop heard. CHEST EXAMINATION: Lungs are clear to auscultation and precussion. No chest wall tenderness is noted on palpation or with deep breathing. ABDOMEN: Soft, nontender. Bowel sounds are heard. No organomegaly noted. EXTREMITIES: 2+ peripheral pulses with no evidence of peripheral edema and no calf tenderness noted. The bilateral lower extremity. NEUROLOGIC patient is awake, alert and oriented x3. . Results 08/07/16 03:18 08/07/16 03:18 Cardiac Enzymes 08/06/16 08/07/16 Range/Units 21:16 03:18 CK-MB (CK-2) 14.6 H* 9.0 H* (0.0-2.4) ng/mL Troponin I 0.567 H* 0.383 H* (0.000-0.034) ng/mL Coagulation 08/07/16 08/07/16 Range/Units 00:53 08:29 APTT 26.0 26.6 (22.0-30.0) sec Lipids 08/07/16 Range/Units 03:18 Triglycerides 244 H (<150) mg/dL Cholesterol 144 (<200) mg/dL HDL Cholesterol 23 L (40-60) mg/dL CBC 08/07/16 Range/Units 03:18 WBC 9.2 (3.8-10.6) k/uL RBC 4.00 L (4.30-5.90) m/uL Hgb 11.0 L (13.0-17.5) gm/dL Hct 34.5 L (39.0-53.0) % Plt Count 226 (150-450) k/uL Comprehensive Metabolic Panel 08/07/16 Range/Units 03:18 Sodium 142 (137-145) mmol/L Potassium 4.8 (3.5-5.1) mmol/L Chloride 111 H (98-107) mmol/L Carbon Dioxide 21 L (22-30) mmol/L BUN 22 H (9-20) mg/dL Creatinine 0.80 (0.66-1.25) mg/dL Glucose 190 H (74-99) mg/dL Calcium 8.9 (8.4-10.2) mg/dL Current Medications Generic Name Dose Route Start Last Admin Trade Name Freq PRN Reason Stop Dose Admin Alprazolam 0.25 mg 08/06/16 21:56 Xanax PO TID PRN Anxiety Aspirin 325 mg 08/07/16 09:00 Aspirin PO DAILY [facility] Clopidogrel Bisulfate 75 mg 08/07/16 09:00 Plavix PO DAILY [facility] Diazepam 10 mg 08/06/16 21:00 08/06/16 22:16 Valium PO 10 mg BID [facility] Administration Folic Acid 1 mg 08/07/16 12:00 Folic Acid PO DAILY@1200 [facility] Heparin Sodium (Porcine) 0 unit 08/07/16 02:19 08/07/16 03:27 Heparin IV 4,000 unit PER PROTOCOL PRN Administration Low PTT Protocol Heparin Sodium/Dextrose 25,000 500 mls @ 20 mls/hr 08/06/16 18:00 08/07/16 02 :21 unit/ IV Solution IV 11.67 units/kg/hr .Q24H [facility] 26.89 mls/hr Protocol Titration 8.68 UNITS/KG/HR Sodium Chloride 1,000 mls @ 100 mls/hr 08/06/16 18:15 08/07/16 09:16 Saline 0.9% IV Not Given .Q10H [facility] Insulin Detemir 40 unit 08/06/16 21:00 08/06/16 22:16 Levemir SQ 40 unit HS [facility] Administration Insulin Human Lispro 12 unit 08/07/16 07:30 08/07/16 08:00 Humalog SQ Not Given AC-TID [facility] Insulin Human Lispro 0 unit 08/07/16 07:30 08/07/16 08:01 Humalog SQ 1 unit ACHS [facility] Administration Protocol Lisinopril 10 mg 08/07/16 09:00 Zestril PO DAILY [facility] Melatonin 3 mg 08/07/16 21:00 Melatonin PO HS [facility] Metoprolol Tartrate 25 mg 08/06/16 21:00 08/06/16 22:17 Lopressor PO 25 mg BID [facility] Administration Morphine Sulfate 2 mg 08/06/16 17:57 Morphine Sulfate (Inj) IVP Q5M PRN Chest Pain Multivitamins 1 each 08/07/16 12:00 Theragran PO DAILY@1200 [facility] Nitroglycerin 0.4 mg 08/06/16 17:57 Nitrostat SUBLINGUAL Q5M PRN Chest Pain Oxycodone/Acetaminophen 1 each 08/06/16 18:03 08/06/16 23:22 Percocet 10-325 PO 1 each Q8H PRN Administration Pain Pantoprazole Sodium 40 mg 08/07/16 07:30 08/07/16 08:01 Protonix PO 40 mg AC-BRKFST [facility] Administration Pravastatin Sodium 80 mg 08/06/16 21:00 08/06/16 22:17 Pravachol PO 80 mg HS [facility] Administration Pregabalin 100 mg 08/06/16 21:00 08/06/16 22:29 Lyrica PO 100 mg BID [facility] Administration Thiamine HCl 100 mg 08/07/16 12:00 Vitamin B-1 PO DAILY@1200 [facility] Intake and Output 08/06/16 08/07/16 08/07/16 22:59 06:59 14:59 Intake Total 900 159.333 Balance 900 159.333 Intake: Amount of Fluid Infused ( 900 ml) Intake, IV Titration 159.333 Amount Heparin Sodium,Porcine/ 159.333 D5w Pmx 25,000 unit In Dextrose/Water 1 500ml. bag @ 8.68 UNITS/KG/HR 20 mls/hr IV .Q24H [facility] Rx#: [id number] Other: Voiding Method Urinal Urinal # Voids 2 Weight 120.3 kg 119.8 kg 08/07/16 03:18 08/07/16 03:18 EKG Interpretations (text) Sinus rhythm without acute ST-T wave changes Assessment and Plan Plan: Assessment and plan #1 elevated troponins, not felt to be related to myocardial injury #2 rhabdomyolysis likely secondary to increase in Lyrica dose #3 chronic low back pain #4 CAD with recent stent placement to the circumflex in June of this year #5 diabetes mellitus #6 hypertension #7 hyperlipidemia From cardiology's perspective, elevated troponins likely not related to myocardial injury. We will decrease Lyrica dose. We will continue to follow the patient provide further recommendations accordingly. [employer] note has been reviewed, I agree with a documented findings and plan of care. Patient was seen and examined.
[2016-08-07] MEDS: oxyCODONE-APAP 10-325MG 1 EACH TAB PO PRN ×2 (14:37→23:23)
--- NOTE | 2016-08-07 15:46 | ECHOF ---
Referral Reason:elevated troponin MEASUREMENTS -------- HEIGHT: 182.9 cm WEIGHT: 119.7 kg BP: 124/58 IVSd: 1.7 cm (0.6 - 1.1) LVIDd: 3.2 cm (3.9 - 5.3) LVPWd: 1.5 cm (0.6 - 1.1) IVSs: 1.6 cm LVIDs: 1.6 cm LVPWs: 1.5 cm Ao Diam: 3.4 cm (2.0 - 3.7) AV Cusp: 1.6 cm (1.5 - 2.6) LA Diam: 3.3 cm (2.7 - 3.8) MV EXCURSION: 18.742 mm (> 18.000) MV EF SLOPE: 90 mm/s (70 - 150) EPSS: 0.5 cm MV E Harrison: 1.37 m/s MV DecT: 152 ms MV A Harrison: 0.75 m/s MV E/A Ratio: 1.82 RAP: 5.00 mmHg RVSP: 11.45 mmHg FINDINGS -------- Sinus rhythm. This was a technically good study. There is moderate concentric left ventricular hypertrophy. Overall left ventricular systolic function is normal with, an EF between 55 - 60 %. The right ventricle is normal in size and function. The left atrium is normal in size. The right atrium is normal in size. The aortic valve is trileaflet, and appears structurally normal. No aortic stenosis or regurgitation. The mitral valve leaflets are mildly thickened. Mild mitral regurgitation is present. Mild tricuspid regurgitation present. The right ventricular systolic pressure, as measured by Doppler, is 11.45mmHg. Pulmonic valve appears structurally normal. The aortic root size is normal. The pericardium is normal. CONCLUSIONS -------- 1. Sinus rhythm. 2. Mild mitral regurgitation is present. 3. Mild tricuspid regurgitation present. 4. The right ventricular systolic pressure, as measured by Doppler, is 11.45mmHg. 5. Pulmonic valve appears structurally normal. 6. The aortic root size is normal. 7. The pericardium is normal. 8. This was a technically good study. 9. There is moderate concentric left ventricular hypertrophy. 10. Overall left ventricular systolic function is normal with, an EF between 55 - 60 %. 11. The right ventricle is normal in size and function. 12. The left atrium is normal in size. 13. The right atrium is normal in size. 14. The aortic valve is trileaflet, and appears structurally normal. No aortic stenosis or regurgitation. 15. The mitral valve leaflets are mildly thickened. FACE HARDENER: Sofia Rodriguez RDCS
[2016-08-07 16:49] LABS: Glucose,Whole Blood 151 mg/dL (75-99)
[2016-08-07] MEDS ORDERED: MELATONIN 3 MG TABLET PO SCH (21:00)
[2016-08-07 21:12] LABS: Glucose,Whole Blood 130 mg/dL (75-99)
[2016-08-07] MEDS: HEPARIN SODIUM,PORCINE 5,000 UNIT/ML 1 ML VIAL SQ SCH (22:33)
[2016-08-07] MEDS: PREGABALIN 50 MG CAP PO SCH (22:34)
[2016-08-07] MEDS: PRAVASTATIN SODIUM 80 MG TAB PO SCH (22:34)
[2016-08-07] MEDS: INSULIN DETEMIR 100 UNIT/ML 10 ML VIAL SQ SCH (22:34)
[2016-08-08 06:17] LABS: Glucose,Whole Blood 206 mg/dL (75-99)
[2016-08-08 06:38] LABS: Basophils # (A) 0.1 k/uL (0-0.2); Basophils % (A) 1 %; CH 27.9; CHCM 32.4; Eosinophils # (A) 0.2 k/uL (0-0.7); Eosinophils % (A) 2 %; HCT 34.8 % (39.0-53.0); HDW 2.92; HGB 11.2 gm/dL (13.0-17.5); Luc # (Auto) 0.22; Luc % (Auto) 3; Lymphocytes # (A) 2.2 k/uL (1.0-4.8); Lymphocytes % (A) 26 %; MCH 27.8 pg (25.0-35.0); MCHC 32.2 g/dL (31.0-37.0); MCV 86.5 fL (80.0-100.0); Mean Platelet Volume 7.9; Monocytes # (A) 0.6 k/uL (0-1.0); Monocytes % (A) 7 %; Neutrophils # (A) 5.1 k/uL (1.3-7.7); Neutrophils % (A) 61 %; RBC 4.03 m/uL (4.30-5.90); RDW 13.6 % (11.5-15.5); WBC 8.4 k/uL (3.8-10.6); WBC (Perox) 9.06
[2016-08-08 06:56] LABS: Anion Gap 8 mmol/L; Blood Urea Nitrogen 15 mg/dL (9-20); Calcium 9.1 mg/dL (8.4-10.2); Carbon Dioxide 25 mmol/L (22-30); Chloride 106 mmol/L (98-107); Creatine Kinase 269 U/L (55-170); Glucose 193 mg/dL (74-99); Non-African American GFR(MDRD) >60 (>60 ml/min/1.73 sqM); Potassium 4.6 mmol/L (3.5-5.1); Sodium 139 mmol/L (137-145)
[2016-08-08] MEDS: PANTOPRAZOLE 40 MG TABLET PO SCH (07:00)
[2016-08-08] MEDS: oxyCODONE-APAP 10-325MG 1 EACH TAB PO PRN (07:00)
[2016-08-08] MEDS: INSULIN LISPRO (humaLOG) 300 UNIT/3 ML VIAL SQ SCH ×2 (07:36)
[2016-08-08] MEDS: SODIUM CHLORIDE 0.9% 1,000 ML IV SCH ×2 (08:20→08:34)
[2016-08-08] MEDS: DIAZEPAM 5 MG TAB PO SCH (08:37)
[2016-08-08] MEDS: CLOPIDOGREL 75 MG TAB PO SCH (08:38)
[2016-08-08] MEDS: METOPROLOL TARTRATE 25 MG TAB PO SCH (08:38)
[2016-08-08] MEDS: HEPARIN SODIUM,PORCINE 5,000 UNIT/ML 1 ML VIAL SQ SCH (08:38)
[2016-08-08] MEDS: LISINOPRIL 10 MG TAB PO SCH (08:38)
[2016-08-08] MEDS: ASPIRIN 325 MG TAB PO SCH (08:38)
[2016-08-08] MEDS: THIAMINE 100 MG TAB PO SCH (08:39)
[2016-08-08] MEDS: MULTIVITAMINS, THERA 1 EACH TAB PO SCH (08:39)
[2016-08-08] MEDS: FOLIC ACID 1 MG TAB PO SCH (08:39)
[2016-08-08] MEDS: PREGABALIN 50 MG CAP PO SCH (08:41)
--- NOTE | 2016-08-08 10:26 | P.PN ---
Subjective This patient is a 61-year-old male who is being evaluated for confusion and lower extremity weakness. The patient seems to be doing better today in terms of less confusion. He continues to have symptoms of low back pain and weakness in the legs. We have recommended physical therapy to evaluate the patient. Patient did have elevated troponins which should not felt to be related to myocardial injury. Cardiology is following the patient for this. Patient is being evaluated for possibility of mild TIA symptoms as well. He does take several medications that also could have contributed to acute mental status changes. We would recommend tight control of his diabetes as well. We will await further recommendations from PT and OT regarding his leg strength and weakness. He may be a candidate for inpatient rehab placement. His overall prognosis at this time remains guarded. Objective - Vital Signs Vital signs: Vital Signs Temp 98.4 F 08/07/16 16:00 Pulse 86 08/07/16 16:00 Resp 18 08/07/16 16:00 BP 158/81 08/07/16 16:00 Pulse Ox 96 08/07/16 16:00 Intake & Output 08/07/16 08/07/16 08/08/16 06:59 18:59 06:59 Intake Total 159.333 666.886 Balance 159.333 666.886 Weight 119.8 kg Intake: Intake, IV Titration 159.333 186.886 Amount Heparin Sodium,Porcine/ 159.333 186.886 D5w Pmx 25,000 unit In Dextrose/Water 1 500ml. bag @ 8.68 UNITS/KG/HR 20 mls/hr IV .Q24H KARLA Rx#: [id number] Oral 480 Other: Voiding Method Urinal Urinal # Voids 2 0 # Bowel Movements 1 - Exam Physical examination: PHYSICAL EXAMINATION: Patient is resting comfortably in bed. VITAL SIGNS: Blood pressure is [158/81]. Heart rate is [86]. Respiration is [18] . Temperature is [98.4]. HEENT: Head is atraumatic, neck is supple, there were no carotid bruits. CHEST: Lungs are clear to auscultation and percussion. CARDIAC: S1, S2 normal rate and rhythm. There is no murmur. ABDOMEN: Soft and nontender. Bowel sounds are present. EXTREMITIES: There is no pedal edema. Peripheral pulses are present. Neurological examination: Neurological examination is unchanged from yesterday. - Labs CBC & Chem 7: 08/08/16 05:53 08/08/16 05:53 Labs: Abnormal Lab Results - Last 24 Hours (Table) 08/06/16 08/06/16 08/07/16 Range/Units 20:41 21:16 03:18 RBC (4.30-5.90) m/uL Hgb (13.0-17.5) gm/dL Hct (39.0-53.0) % Chloride (98-107) mmol/L Carbon Dioxide (22-30) mmol/L BUN (9-20) mg/dL Glucose (74-99) mg/dL POC Glucose (mg/dL) 197 H (75-99) mg/dL Total Creatine Kinase 1359 H 1057 H (55-170) U/L CK-MB (CK-2) 14.6 H* 9.0 H* (0.0-2.4) ng/mL Troponin I 0.567 H* 0.383 H* (0.000-0.034) ng/mL Triglycerides (<150) mg/dL HDL Cholesterol (40-60) mg/dL 08/07/16 08/07/16 08/07/16 Range/Units 03:18 03:18 07:00 RBC 4.00 L (4.30-5.90) m/uL Hgb 11.0 L (13.0-17.5) gm/dL Hct 34.5 L (39.0-53.0) % Chloride 111 H (98-107) mmol/L Carbon Dioxide 21 L (22-30) mmol/L BUN 22 H (9-20) mg/dL Glucose 190 H (74-99) mg/dL POC Glucose (mg/dL) 137 H (75-99) mg/dL Total Creatine Kinase (55-170) U/L CK-MB (CK-2) (0.0-2.4) ng/mL Troponin I (0.000-0.034) ng/mL Triglycerides 244 H (<150) mg/dL HDL Cholesterol 23 L (40-60) mg/dL 08/07/16 08/07/16 Range/Units 12:06 16:43 RBC (4.30-5.90) m/uL Hgb (13.0-17.5) gm/dL Hct (39.0-53.0) % Chloride (98-107) mmol/L Carbon Dioxide (22-30) mmol/L BUN (9-20) mg/dL Glucose (74-99) mg/dL POC Glucose (mg/dL) 115 H 151 H (75-99) mg/dL Total Creatine Kinase (55-170) U/L CK-MB (CK-2) (0.0-2.4) ng/mL Troponin I (0.000-0.034) ng/mL Triglycerides (<150) mg/dL HDL Cholesterol (40-60) mg/dL Assessment and Plan (1) Acute encephalopathy Status: Acute Code(s): G93.40 - ENCEPHALOPATHY, UNSPECIFIED (2) Chronic low back pain Status: Acute Code(s): M54.5 - LOW BACK PAIN; G89.29 - OTHER CHRONIC PAIN (3) Elevated troponin Status: Acute Code(s): R74.8 - ABNORMAL LEVELS OF OTHER SERUM ENZYMES (4) Peripheral vascular disease Status: Acute Code(s): I73.9 - PERIPHERAL VASCULAR DISEASE, UNSPECIFIED Plan: This patient is a 61-year-old male who was admitted with symptoms of altered mental status and weakness. We have consult PT OT for further evaluation of his lower extremity weakness. His CAT scan of the brain failed to reveal any evidence of acute stroke. It is felt that he has some degree of metabolic encephalopathy possibly secondary to medication use. He does seem to show improvement with his mental status today. He has a long-standing history of chronic low back pain for which he is on various medications. He has undergone epidural injections to the back due to the severity of his pain. We will await further recommendations from physical therapy. Patient may be a candidate for inpatient rehab placement. We will continue close neurological follow-up for this patient during this admission. His overall prognosis at this time remains guarded.
--- NOTE | 2016-08-08 11:31 | PN ---
DATE OF SERVICE: 08/07/2016 This 61-year-old gentleman who was admitted with confusion, change in mental status, acute on chronic metabolic encephalopathy with acute rhabdomyolysis and increased creatinine kinase is improving significantly. No chest or palpitation. No fever. On exam, alert and oriented times three. Pulse 68, blood pressure 150/88, respiration 18, temperature 98.4, pulse ox 97% on room air. HEENT: Conjunctivae normal. NECK: No jugular venous distention. CARDIOVASCULAR: S1, S2 muffled. RESPIRATORY: Breath sounds diminished at the bases. Bilateral scattered rhonchi and crackles. ABDOMEN: Soft, nontender. LEGS: No edema. No swelling. CENTRAL NERVOUS SYSTEM: No focal deficits. LABS: WBC 9.2, hemoglobin is 11. The creatinine kinase is still elevated at 1057 and troponin is 0.383. ASSESSMENT: 1. Confusion, change in mental status, possible acute on chronic metabolic encephalopathy, multifactorial. 2. Possible acute rhabdomyolysis with increased creatinine kinase. 3. Troponin 0.694, rule out acute non-ST segment elevation myocardial infarction. 4. Hyperkalemia. 5. Increased WBC. 6. Anemia, normocytic. 7. Possible respiratory infection, upper respiratory infection. 8. History of coronary artery disease and stent. 9. History of cerebrovascular accident, transient ischemic attack. 10. Diabetes, type II. 11. Gastroesophageal reflux disease. 12. Chronic pain syndrome. 13. Hypertension, essential. 14. Hyperlipidemia. 15. History of memory impairment. 16. History of ulcer of the stomach. 17. History of methicillin-resistant Staphylococcus aureus. 18. History of degenerative joint disease. 19. History of coronary artery disease and stent. 20. History of depression, not otherwise specified. 21. Remote history of nicotine dependence. 22. Obesity, body mass index of 37. 23. Gait dysfunction. 24. Metabolic encephalopathy, possibly drug-induced. 25. FULL CODE. RECOMMENDATIONS AND DISCUSSION: In this 61-year-old gentleman who presented with multiple complex medical issues, we will monitor this closely, continue the current medications, continue symptomatic treatment. Cardiology has seen the patient and a 2-D echo has been ordered. A 2-D echo showed ejection fraction about 50% to 60%. Increase ambulation and if the patient is stable, the patient may be able to go home. The elevated troponins are not felt to be related to myocardial injury, possibly secondary to rhabdomyolysis. Continue to monitor. See orders for further details. Further recommendations to follow.
[2016-08-08 11:58] LABS: Glucose,Whole Blood 140 mg/dL (75-99)
[2016-08-08 12:34] VITALS: BP 173/72; PULSE 73; TEMP 98.2
--- NOTE | 2016-08-08 16:26 | PN ---
Mr. Pedroza is comfortable, resting. Denies chest pain. He is fully oriented, has no chest pain, shortness of breath or headache. Vital signs are stable. Plan is to increase the activity, he can be discharged and I will see him in the office as per appointment. His troponin profile does not suggest myocardial injury and his headache and altered mentation was probably due to Lyrica. The dose has been cut down. He can be discharged today. Vital signs are stable. There is no JVD or carotid bruit. S1, S2 heard normally. Lungs are clear. ABDOMEN: Soft, nontender. Lower extremities reveal diminished pulses. Central nervous system grossly within normal limits.
[2016-08-08] MEDS ORDERED: METOPROLOL TARTRATE 25 MG TAB PO SCH (21:00)
[2016-08-08] MEDS ORDERED: METOPROLOL TARTRATE 50 MG TAB PO SCH (21:00)
[2016-08-09] MEDS ORDERED: ASPIRIN 81 MG CHEW PO SCH (09:00)
--- NOTE | 2016-08-09 11:34 | EEG ---
DATE OF SERVICE: 08/07/2016 INDICATIONS FOR EXAMINATION: This patient is a 61-year-old male being evaluated for altered mental status and mild confusion with generalized weakness. AGE: 61Y EEG FINDINGS: A routine 21 channel awake digital EEG recording was accomplished utilizing the 10-20 international system with bipolar and referential montages. The background activity in the most alert resting state consists of a low to medium amplitude, fairly well developed and well sustained 6 Hz activity over the posterior head regions. This posterior rhythm attenuates to eye opening. There is a small amount of low amplitude 18-20 Hz beta activity seen maximally over the anterior head regions. Muscle and movement artifact was observed on a few occasions during the tracing. Hyperventilation was not performed. Photic stimulation and flash frequencies of 2-30 Hz produced a minimal occipital driving response. No epileptiform discharges were seen. IMPRESSION: This EEG is moderately abnormal in diffuse fashion due to slowing of the EEG background. The EEG failed to reveal any focal, lateralized, or epileptiform abnormalities. Clinical correlation is recommended.
--- NOTE | 2016-08-09 18:59 | DS ---
DATE OF ADMISSION: 08/06/2016 DATE OF DISCHARGE: 08/08/2016 FINAL DIAGNOSES: 1. Confusion change in mental status, possible acute on chronic metabolic encephalopathy, multifactorial, possible medication induced. 2. Acute rhabdomyolysis and increased creatinine kinase, possible medication induced. 3. Possible transient ischemic attack. 4. Troponin 0.694, possibly secondary to rhabdomyolysis. Acute coronary event unlikely per cardiology. 5. Hyperkalemia. 6. Increased WBC. 7. Anemia, normocytic. 8. Possible upper respiratory infection. 9. History of coronary artery disease and stent. 10. History of cerebrovascular accident, transient ischemic attack. 11. Diabetes mellitus type 2. 12. Gastroesophageal reflux disease. 13. Chronic pain syndrome. 14. Hypertension, essential. 15. Hyperlipidemia. 16. History of memory impairment. 17. History of ulcer of the stomach. 18. History of Methicillin-resistant Staph aureus. 19. History of degenerative joint disease. 20. History of coronary artery disease, stent. 21. History of depression, not otherwise specified. 22. Remote history of nicotine dependence. 23. Obesity with body mass index of 37. 24. Gait dysfunction. 25. Metabolic encephalopathy, partial drug-induced. 26. FULL CODE. DISCHARGE DISPOSITION: The patient will be discharged in a stable condition with guarded prognosis. Discharge cleared by multiple consultants including cardiology. HISTORY OF PRESENT ILLNESS: This 61 -year-old gentleman admitted with confusion, change in mental status was treated symptomatically improved significantly. The patient also has rhabdomyolysis. The patient improved significantly and seen by cardiology and neurology, care was coordinated. Vital signs stable. CARDIOVASCULAR: S1, S2. ABDOMEN: Soft. LEGS: No edema. No swelling. Nervous system: No focal deficit. Creatinine is improved to 69. DISCHARGE ADVICE AND MEDICATIONS: 1. Diet is cardiac. 2. Activity limited until follow-up. 3. Follow up with Dr. Naqvi in 2 to 3 days. 4. CBC, BMP. 5. Follow up with Dr. Vale Gill as advised. 6. Follow-up with cardiology as recommended. 7. Medications: Ecotrin 81 mg p.o. daily. 8. Plavix 75 milligrams p.o. daily. 9. Valium 10 mg p.o. b.i.d. 10. Vasotec 5 mg p.o. daily. 11. Levemir 40 units subcu q.h.s. 12. Humalog units a.c. t.i.d. 13. Lopressor 25 mg p.o. b.i.d. 14. Multivitamin 1 p.o. daily. 15. Naprosyn 500 mg p.o. b.i.d. 16. Nitrostat 0.5 sublingual p.r.n. 17. Omeprazole 20 mg p.o. daily. 18. Pravachol 80 mg p.o. q.h.s. 19. Lyrica 100 mg p.o. b.i.d. 20. Percocet 1 tablet q8h p.r.n. Once again, the patient will be discharged in stable condition with guarded prognosis. MTDD
== END 2016-08-08 13:21 | disposition home or self-care (01) | DRG 71 ==
LOC: EC 14:49 → 6SEL 17:58
PROVIDERS: ADMIT Hospitalist; ATTEND Hospitalist
DX: G93.41 Metabolic encephalopathy (principal); M62.82 Rhabdomyolysis; E11.42 Type 2 diabetes mellitus with diabetic polyneuropathy; E87.5 Hyperkalemia; I10 Essential (primary) hypertension; G89.4 Chronic pain syndrome; M54.5 Low back pain; I73.9 Peripheral vascular disease, unspecified; I25.10 Atherosclerotic heart disease of native coronary artery without angina pectoris; K21.9 Gastro-esophageal reflux disease without esophagitis; D64.9 Anemia, unspecified; E66.9 Obesity, unspecified; Z68.37 Body mass index [BMI] 37.0-37.9, adult; M19.91 Primary osteoarthritis, unspecified site; R26.9 Unspecified abnormalities of gait and mobility; E78.5 Hyperlipidemia, unspecified; Z86.59 Personal history of other mental and behavioral disorders; Z86.14 Personal history of Methicillin resistant Staphylococcus aureus infection; Z86.73 Personal history of transient ischemic attack (TIA), and cerebral infarction without residual deficits; Z87.828 Personal history of other (healed) physical injury and trauma; Z95.5 Presence of coronary angioplasty implant and graft; Z87.11 Personal history of peptic ulcer disease; Z87.891 Personal history of nicotine dependence; Z79.02 Long term (current) use of antithrombotics/antiplatelets; Z79.4 Long term (current) use of insulin; Z79.1 Long term (current) use of non-steroidal anti-inflammatories (NSAID); Z79.899 Other long term (current) drug therapy
CPT/HCPCS: 36415; 70450; 71020; 74000; 80048; 80053; 80061; 80306; 81003; 82550; 82553; 83036; 84484; 85025; 85610; 85730; 93005; 93306; 95819; 96361; 96374; 96375; 99291

== ENCOUNTER 2016-10-07 17:02 | Inpatient (IN) | payer MEDICARE, OTHER ==
[2016-10-07] MEDS ORDERED: NITROGLYCERIN OINT 1 INCH/GM PACKET TOPICAL STA (17:29)
[2016-10-07] MEDS ORDERED: ASPIRIN 81 MG CHEW PO STA (17:29)
--- NOTE | 2016-10-07 17:31 | ED ---
General Adult HPI - General Source: patient, RN notes reviewed Mode of arrival: ambulatory Limitations: no limitations <Moreno Combs - Last Filed: 10/07/16 18:54> <Den Jay - Last Filed: 10/07/16 20:44> - General Chief complaint: Chest Pain Stated complaint: Chest Pain Time Seen by Provider: 10/07/16 17:22 - History of Present Illness Initial comments: Patient is a pleasant 61-year-old male presenting to the emergency Department with chest discomfort. Symptoms have been intermittent over the past few days. Discomfort is currently 2/10. Discomfort feels like pressure. Patient has had some radiation up towards her jaw. No associated dyspnea. Patient has had some mild nausea. Patient was diaphoretic earlier today. Patient has had similar symptoms previously associated with heart problems. Patient states nitroglycerin does help him. (Moreno Combs) - Related Data Home Medications Medication Instructions Recorded Confirmed Metoprolol Tartrate [Lopressor] 25 mg PO BID 10/26/13 10/07/16 Clopidogrel [Plavix] 75 mg PO DAILY 01/10/14 10/07/16 Nitroglycerin Sl Tabs [Nitrostat] 0.4 mg SUBLINGUAL Q5M PRN 01/10/14 10/07/16 Pravastatin Sodium [Pravachol] 80 mg PO HS 06/08/16 10/07/16 Pregabalin [Lyrica] 100 mg PO BID 06/08/16 10/07/16 oxyCODONE-APAP 10-325MG [Percocet 1 tab PO Q8H PRN 06/08/16 10/07/16 10-325 mg] Diazepam [Valium] 10 mg PO BID 08/06/16 10/07/16 Enalapril [Vasotec] 5 mg PO DAILY 08/06/16 10/07/16 Insulin Lispro [humaLOG Kwikpen] 12 unit SQ BID 08/06/16 10/07/16 Omeprazole 20 mg PO DAILY 08/06/16 10/07/16 Insulin Glargine,Hum.rec.anlog 40 units SQ HS 10/07/16 10/07/16 [Christina Carrillo] Insulin Lispro [humaLOG Kwikpen] 15 unit SQ QAM 10/07/16 10/07/16 Previous Rx's Medication Instructions Recorded Aspirin 81 mg PO DAILY #30 chew 08/08/16 Multivitamins, Thera [Multivitamin 1 each PO DAILY@1200 #30 tab 08/08/16 (formulary)] Allergies Allergy/AdvReac Type Severity Reaction Status Date / Time cephalexin monohydrate Allergy Nausea & Verified 10/07/16 18:31 [From Keflex] Vomiting & Diarrhea Review of Systems ROS Other: All systems not noted in ROS Statement are negative. Constitutional: Denies: fever Eyes: Denies: eye pain ENT: Denies: ear pain Respiratory: Denies: cough, dyspnea Cardiovascular: Reports: chest pain Endocrine: Denies: fatigue Gastrointestinal: Reports: nausea. Denies: abdominal pain Genitourinary: Denies: urgency Musculoskeletal: Denies: back pain Skin: Denies: rash <Moreno Combs - Last Filed: 10/07/16 18:54> ROS Other: All systems not noted in ROS Statement are negative. <Den Jay - Last Filed: 10/07/16 20:44> ROS Statement: Those systems with pertinent positive or pertinent negative responses have been documented in the HPI. Past Medical History Past Medical History: Coronary Artery Disease (CAD), Chest Pain / Angina, CVA/ TIA, Diabetes Mellitus, GERD/Reflux, Hyperlipidemia, Hypertension, Memory Impairment Additional Past Medical History / Comment(s): ulcer in stomach , fell May 2013 and hit head and had a brain bleed-from possible TIA. History of Any Multi-Drug Resistant Organisms: MRSA Date of last positivie culture/infection: 2010 MDRO Source:: RESPIRATORY/UNSURE Past Surgical History: Heart Catheterization With Stent, Orthopedic Surgery, Tonsillectomy Additional Past Surgical History / Comment(s): bunionectomy, amy rotator cuff, HEART STENTS X3, LEFT LEG ARTERY X2 STENTS. COLONOSCOPY, Past Anesthesia/Blood Transfusion Reactions: Motion Sickness Date of Last Stent Placement:: 2006 Past Psychological History: Depression Smoking Status: Former smoker Past Alcohol Use History: None Reported Additional Past Alcohol Use History / Comment(s): QUIT SMOKING 2010, STARTED AT AGE [age] Past Drug Use History: None Reported - Past Family History Mother Family Medical History: No Reported History <Moreno Combs - Last Filed: 10/07/16 18:54> General Exam Limitations: no limitations General appearance: alert, in no apparent distress Head exam: Present: atraumatic Eye exam: Present: normal appearance, PERRL ENT exam: Present: normal oropharynx Neck exam: Present: normal inspection Respiratory exam: Present: normal lung sounds bilaterally. Absent: chest wall tenderness Cardiovascular Exam: Present: regular rate, normal rhythm Expanded Peripheral pulses: 2+: Radial (R), Radial (L), Dorsalis Pedis (R), Dorsalis Pedis (L) GI/Abdominal exam: Present: soft. Absent: tenderness Extremities exam: Present: normal inspection. Absent: pedal edema, calf tenderness Neurological exam: Present: alert Psychiatric exam: Present: normal affect, normal mood Skin exam: Present: normal color <Moreno Combs - Last Filed: 10/07/16 18:54> EKG Findings - EKG Comments: EKG Findings:: Normal sinus rhythm 94. WI 142. QRS 76. QT 382. QTC 477. Normal axis. Normal QRS. Normal ST-T. <Moreno Combs - Last Filed: 10/07/16 18:54> Medical Decision Making - Radiology Data Radiology results: image reviewed (Chest x-ray shows no acute process, borderline cardiomegaly.) <Moreno Combs - Last Filed: 10/07/16 18:54> - Lab Data Result diagrams: 10/07/16 18:54 10/07/16 18:54 <Den Jay - Last Filed: 10/07/16 20:44> - Medical Decision Making Case was discussed with Dr. cao, who will admit for Dr. Naqvi. (Moreno Combs) - Lab Data Lab Results 10/07/16 10/07/16 10/07/16 Range/Units 18:54 18:54 18:54 WBC 11.0 H (3.8-10.6) k/uL RBC 5.18 (4.30-5.90) m/uL Hgb 14.4 D (13.0-17.5) gm/dL Hct 44.8 (39.0-53.0) % MCV 86.5 (80.0-100.0) fL MCH 27.9 (25.0-35.0) pg MCHC 32.2 (31.0-37.0) g/dL RDW 13.0 (11.5-15.5) % Plt Count 248 (150-450) k/uL Neutrophils % 70 % Lymphocytes % 21 % Monocytes % 5 % Eosinophils % 1 % Basophils % 1 % Neutrophils # 7.7 (1.3-7.7) k/uL Lymphocytes # 2.3 (1.0-4.8) k/uL Monocytes # 0.5 (0-1.0) k/uL Eosinophils # 0.1 (0-0.7) k/uL Basophils # 0.1 (0-0.2) k/uL PT (9.0-12.0) sec INR (<1.1) APTT (22.0-30.0) sec Sodium 138 (137-145) mmol/L Potassium 4.5 (3.5-5.1) mmol/L Chloride 102 (98-107) mmol/L Carbon Dioxide 25 (22-30) mmol/L Anion Gap 11 mmol/L BUN 15 (9-20) mg/dL Creatinine 0.71 (0.66-1.25) mg/dL Est GFR (MDRD) Af Amer >60 (>60 ml/min/1.73 sqM) Est GFR (MDRD) Non-Af >60 (>60 ml/min/1.73 sqM) Glucose 371 H (74-99) mg/dL Calcium 9.4 (8.4-10.2) mg/dL Magnesium 1.8 (1.6-2.3) mg/dL Total Bilirubin 0.5 (0.2-1.3) mg/dL AST 14 L (17-59) U/L ALT 23 (21-72) U/L Alkaline Phosphatase 89 (38-126) U/L Total Creatine Kinase 26 L (55-170) U/L CK-MB (CK-2) 0.7 (0.0-2.4) ng/mL CK-MB (CK-2) Rel Index 2.7 Troponin I <0.012 (0.000-0.034) ng/mL Total Protein 6.9 (6.3-8.2) g/dL Albumin 4.3 (3.5-5.0) g/dL 10/07/16 Range/Units 18:54 WBC (3.8-10.6) k/uL RBC (4.30-5.90) m/uL Hgb (13.0-17.5) gm/dL Hct (39.0-53.0) % MCV (80.0-100.0) fL MCH (25.0-35.0) pg MCHC (31.0-37.0) g/dL RDW (11.5-15.5) % Plt Count (150-450) k/uL Neutrophils % % Lymphocytes % % Monocytes % % Eosinophils % % Basophils % % Neutrophils # (1.3-7.7) k/uL Lymphocytes # (1.0-4.8) k/uL Monocytes # (0-1.0) k/uL Eosinophils # (0-0.7) k/uL Basophils # (0-0.2) k/uL PT 9.7 (9.0-12.0) sec INR 0.9 (<1.1) APTT 23.2 (22.0-30.0) sec Sodium (137-145) mmol/L Potassium (3.5-5.1) mmol/L Chloride (98-107) mmol/L Carbon Dioxide (22-30) mmol/L Anion Gap mmol/L BUN (9-20) mg/dL Creatinine (0.66-1.25) mg/dL Est GFR (MDRD) Af Amer (>60 ml/min/1.73 sqM) Est GFR (MDRD) Non-Af (>60 ml/min/1.73 sqM) Glucose (74-99) mg/dL Calcium (8.4-10.2) mg/dL Magnesium (1.6-2.3) mg/dL Total Bilirubin (0.2-1.3) mg/dL AST (17-59) U/L ALT (21-72) U/L Alkaline Phosphatase (38-126) U/L Total Creatine Kinase (55-170) U/L CK-MB (CK-2) (0.0-2.4) ng/mL CK-MB (CK-2) Rel Index Troponin I (0.000-0.034) ng/mL Total Protein (6.3-8.2) g/dL Albumin (3.5-5.0) g/dL Disposition <Moreno Combs - Last Filed: 10/07/16 18:54> Time of Disposition: 20:44 <Den Jay - Last Filed: 10/07/16 20:44> Clinical Impression: Unstable angina pectoris Disposition: ADMITTED IP TO THIS HOSP Referrals: Tr Naqvi DO [Primary Care Provider] - 1-2 days
--- NOTE | 2016-10-07 18:11 | XR ---
EXAMINATION TYPE: XR chest 2V DATE OF EXAM: 10/07/2016 COMPARISON: 08/06/2016 HISTORY: Weakness TECHNIQUE: Frontal and lateral views of the chest are obtained. FINDINGS: There is no heart failure nor confluent pneumonic infiltrate. There is no pleural effusion . There are chest leads. Heart is top normal in size. IMPRESSION: No active cardiopulmonary disease. Borderline cardiomegaly. No change.
[2016-10-07] MEDS ORDERED: oxyCODONE-APAP 10-325MG 1 EACH TAB PO STA (19:12)
[2016-10-07 19:18] LABS: Basophils # (A) 0.1 k/uL (0-0.2); Basophils % (A) 1 %; CH 28.5; CHCM 33.1; Eosinophils # (A) 0.1 k/uL (0-0.7); Eosinophils % (A) 1 %; HCT 44.8 % (39.0-53.0); Luc # (Auto) 0.28; Luc % (Auto) 3; Lymphocytes # (A) 2.3 k/uL (1.0-4.8); Lymphocytes % (A) 21 %; MCH 27.9 pg (25.0-35.0); MCHC 32.2 g/dL (31.0-37.0); MCV 86.5 fL (80.0-100.0); Mean Platelet Volume 7.9; Monocytes # (A) 0.5 k/uL (0-1.0); Monocytes % (A) 5 %; Neutrophils # (A) 7.7 k/uL (1.3-7.7); Neutrophils % (A) 70 %; RBC 5.18 m/uL (4.30-5.90); WBC (Perox) 10.16
[2016-10-07 19:23] LABS: HGB 14.4 gm/dL (13.0-17.5); INR 0.9 (<1.1); Partial Thromboplastin Time 23.2 sec (22.0-30.0); Prothrombin Time 9.7 sec (9.0-12.0)
[2016-10-07 19:25] LABS: ALT 23 U/L (21-72); AST 14 U/L (17-59); Alkaline Phosphatase 89 U/L (38-126); Anion Gap 11 mmol/L; Blood Urea Nitrogen 15 mg/dL (9-20); Calcium 9.4 mg/dL (8.4-10.2); Carbon Dioxide 25 mmol/L (22-30); Chloride 102 mmol/L (98-107); Glucose 371 mg/dL (74-99); Magnesium 1.8 mg/dL (1.6-2.3); Non-African American GFR(MDRD) >60 (>60 ml/min/1.73 sqM); Potassium 4.5 mmol/L (3.5-5.1); Sodium 138 mmol/L (137-145); Total Bilirubin 0.5 mg/dL (0.2-1.3); Total Protein 6.9 g/dL (6.3-8.2)
[2016-10-07 19:44] LABS: Creatine Kinase 26 U/L (55-170)
[2016-10-07 19:55] LABS: Creatine Kinase MB 0.7 ng/mL (0.0-2.4); Troponin I <0.012 ng/mL (0.000-0.034)
[2016-10-07] MEDS ORDERED: HEPARIN SODIUM,PORCINE 5,000 UNIT/ML 1 ML VIAL IV ONE (20:22)
[2016-10-07] MEDS ORDERED: HEPARIN SODIUM,PORCINE/D5W PMX 25,000 UNIT in DEXTROSE/WATER 1 500ML.BAG IV SCH (20:30)
[2016-10-07] MEDS ORDERED: NITROGLYCERIN SL TABS 0.4 MG TAB SUBLINGUAL PRN (20:45)
[2016-10-07] MEDS ORDERED: HEPARIN SODIUM,PORCINE 5,000 UNIT/ML 1 ML VIAL IV PRN (22:04)
[2016-10-07] MEDS ORDERED: INSULIN LISPRO (humaLOG) 300 UNIT/3 ML VIAL SQ SCH (22:15)
[2016-10-07 22:41] LABS: Glucose,Whole Blood 339 mg/dL (75-99)
[2016-10-07] MEDS: PREGABALIN 100 MG CAP PO SCH (22:58)
[2016-10-07] MEDS: METOPROLOL TARTRATE 25 MG TAB PO SCH (22:58)
[2016-10-07] MEDS: DIAZEPAM 5 MG TAB PO SCH (22:58)
[2016-10-07] MEDS: PRAVASTATIN SODIUM 80 MG TAB PO SCH (22:58)
[2016-10-07] MEDS: INSULIN GLARGINE 100 UNIT/ML 10 ML VIAL SQ SCH (23:00)
[2016-10-07] MEDS: NITROGLYCERIN OINT 1 INCH/GM PACKET TOPICAL SCH (23:01)
[2016-10-08 02:45] LABS: Cholesterol 182 mg/dL (<200); HDL Cholesterol 30 mg/dL (40-60); Triglycerides 420 mg/dL (<150)
[2016-10-08 02:57] LABS: Creatine Kinase <20 U/L (55-170)
[2016-10-08 03:10] LABS: Creatine Kinase MB 0.6 ng/mL (0.0-2.4); Troponin I <0.012 ng/mL (0.000-0.034)
[2016-10-08] MEDS: NITROGLYCERIN OINT 1 INCH/GM PACKET TOPICAL SCH ×4 (05:31→23:23)
[2016-10-08 06:44] LABS: Glucose,Whole Blood 293 mg/dL (75-99)
[2016-10-08 07:48] LABS: Creatine Kinase <20 U/L (55-170)
[2016-10-08 08:00] LABS: Creatine Kinase MB 0.6 ng/mL (0.0-2.4); Troponin I <0.012 ng/mL (0.000-0.034)
[2016-10-08] MEDS ORDERED: SODIUM CHLORIDE 0.9% 1,000 ML in EMPTY BAG 1 BAG IV ONE (08:28)
[2016-10-08] MEDS ORDERED: NITROGLYCERIN SL TABS 0.4 MG TAB SUBLINGUAL PRN (08:28)
[2016-10-08] MEDS ORDERED: AMINOPHYLLINE 500 MG/20 ML VIAL IV PRN (08:28)
[2016-10-08] MEDS ORDERED: ALPRAZolam 0.5 MG TAB PO PRN (08:28)
[2016-10-08] MEDS ORDERED: ALPRAZolam 0.25 MG TAB PO PRN (08:28)
[2016-10-08] MEDS ORDERED: ATORVASTATIN 80 MG TAB PO STA (08:28)
[2016-10-08] MEDS ORDERED: REGADENOSON 0.4 MG/5 ML SYRINGE IV ONE (08:28)
[2016-10-08] MEDS ORDERED: ASPIRIN 325 MG TAB PO STA (08:28)
[2016-10-08] MEDS: oxyCODONE-APAP 10-325MG 1 EACH TAB PO PRN ×2 (08:36→17:33)
--- NOTE | 2016-10-08 09:16 | CONS ---
DATE OF CONSULTATION: This is a 61-year-old gentleman with history of coronary artery disease, status post multivessel angioplasty, most recently angioplasty with stent placement of circumflex coronary artery who sees my associate Dr. Marycruz Martinez, for his cardiac needs. Came to hospital with symptoms of precordial chest pain. He is under a lot of stress. His brother recently. Initially developed chest discomfort and subsequently had some chest pain that radiated to his jaw. He has had episodes of interscapular pain also. Patient was in the hospital back in July with symptoms of confusion. At the time of my evaluation, patient appears comfortable at rest. Chest pain-free and hemodynamically stable. Three sets of cardiac enzymes have been negative and EKG does not reveal acute ischemic changes. His blood sugars are poorly controlled. I talked to patient about his treatment options including cardiac catheterization and a stress test. He opts for a stress test at this time and this will be done this morning. If this is abnormal, Dr. Martinez will perform a cardiac catheterization. If not, he will go home. Past medical history is significant for coronary artery disease, status post multivessel angioplasty, hypertension, diabetes, dyslipidemia. Medications at home include Vasotec 5 q. daily, Valium, Plavix 75 q. daily, aspirin, insulin, omeprazole, Pravachol, Lyrica and Percocet. Allergic to KEFLEX. Family history is negative for premature coronary artery disease. Social history is negative for smoking, EtOH abuse, or drug abuse. REVIEW OF SYSTEMS: HEENT is unremarkable. CARDIAC: As described above. RESPIRATORY: Negative. GI: Negative. GENITOURINARY: Negative. ALLERGY/IMMUNOLOGY: Negative. SKIN: Negative. MUSCULOSKELETAL: Significant for arthritis. PSYCHOSOCIAL: Negative. ENDOCRINE: Negative. CONSTITUTIONAL: Negative. ONCOLOGICAL: Negative. The rest of the system review is not relevant. On exam, comfortable at rest, afebrile, blood pressure is elevated at 185/73. Respiratory rate is 18. There is no jugular venous distention. Carotid upstroke is normal. There is no bruit. Chest exam reveals good air entry bilaterally. Heart exam reveals first and second heart sounds. No gallop. No murmur, no rub. Abdomen is soft, nontender. Exam of the extremities did not reveal edema. Peripheral pulses are felt. EKG does not reveal acute ischemic changes. Cardiac enzymes have been negative. Chest x-ray has been reviewed, prior cardiac catheterization data has been reviewed and I had a conversation with Dr. 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 ASSESSMENT: Unstable angina in a patient with known coronary artery disease, status post multivessel angioplasty. He has symptoms that are both typical and atypical, could be related to the stress of his [id number] stuck will do a stress test as an initial testing. If that is abnormal, will escalate it to a cardiac catheterization.
[2016-10-08] MEDS: INSULIN LISPRO (humaLOG) 300 UNIT/3 ML VIAL SQ SCH ×3 (11:23→17:34)
[2016-10-08] MEDS: CLOPIDOGREL 75 MG TAB PO SCH (11:27)
[2016-10-08] MEDS: PREGABALIN 100 MG CAP PO SCH ×2 (11:27→20:32)
[2016-10-08] MEDS: DIAZEPAM 5 MG TAB PO SCH ×2 (11:27→22:21)
[2016-10-08] MEDS: PANTOPRAZOLE 40 MG TABLET PO SCH (11:28)
[2016-10-08] MEDS: LISINOPRIL 10 MG TAB PO SCH (11:28)
[2016-10-08] MEDS: ASPIRIN 325 MG TAB PO SCH (11:28)
[2016-10-08] MEDS: MULTIVITAMINS, THERA 1 EACH TAB PO SCH (11:28)
[2016-10-08] MEDS: amLODIPine 10 MG TAB PO SCH (11:28)
[2016-10-08] MEDS: METOPROLOL TARTRATE 25 MG TAB PO SCH ×2 (11:28→20:32)
[2016-10-08 11:50] LABS: Glucose,Whole Blood 295 mg/dL (75-99)
--- NOTE | 2016-10-08 11:54 | NM ---
EXAMINATION TYPE: NM stress Lexiscan cardiolite DATE OF EXAM: 10/08/2016 COMPARISON: NONE HISTORY: Chest pain TECHNIQUE: After the intravenous administration of 10.9 mCi Tc 99m Sestamibi - Cardiolite resting SP ECT images acquired 45 minutes post injection. The patient received 0.4mg Lexiscan, 26.9 mCi Tc 99m Sestamibi - Stress images obtained [address] injection FINDINGS: There is a fixed defect in the inferolateral wall of the left ventricle. There is evidence of inducible ischemic change involving both the anterior wall and the septum. Wall motion remains nor mal and ejection fraction is 55%. IMPRESSION: 1. EVIDENCE OF A PREVIOUS INFARCT INVOLVING THE INFEROLATERAL WALL OF THE LEFT VENTRICLE. 2. EVIDENCE OF INDUCIBLE ISCHEMIC CHANGE IN BOTH THE ANTERIOR WALL AND SEPTUM.
--- NOTE | 2016-10-08 12:21 | HP ---
DATE OF ADMISSION: 10/07/2016 PRESENTING COMPLAINT: Chest pain. HISTORY OF PRESENTING COMPLAINT: This is a pleasant 61-year-old patient of Dr. Naqvi with rather extensive medical history. Patient's chronic stable medical conditions include diabetes type 2, GERD, hyperlipidemia, hypertension, peptic ulcer disease, possible brain bleed. Patient was last seen in the hospital in July of this year. Patient recently lost his best friend and also his [id number] and since then has been having intermittent episode of chest pressure, more so this morning, like something really heavy sitting on his chest. Some radiation, some shortness of breath, some dizziness, some lightheadedness, hence, patient was admitted for unstable angina. REVIEW OF SYSTEMS: CONSTITUTIONAL: Tired. HEENT: None. RESPIRATORY: None. CARDIOVASCULAR: As above. GASTROINTESTINAL: None. GENITOURINARY: None. MUSCULOSKELETAL: Aches and pains in the joints. DERMATOLOGIC: None. HEMATOLOGIC: None. LYMPHATIC: None. PSYCHIATRY: None. NEUROLOGICAL: None. PAST MEDICAL HISTORY: Coronary artery disease, stroke, diabetes mellitus type 2, GERD, hyperlipidemia, hypertension, peptic ulcer disease, possible brain bleed. PAST SURGICAL HISTORY: Cardiac cath with stent, orthopedic surgery, tonsillectomy, bunionectomy, bilateral rotator cuff, heart stents x3, left leg artery x2 stents. Past psych history of depression. SOCIAL HISTORY: Patient quit smoking, started in 1972. . FAMILY HISTORY: Reviewed, noncontributory to presentation. HOME MEDICATIONS: 1. Percocet 10 one tablet q.8 p.r.n. 2. Lyrica 100 mg p.o. b.i.d. 3. Pravachol 80 mg q.h.s. 4. Omeprazole 20 mg p.o. daily. 5. Nitrostat 0.4 sublingual q.5 p.r.n. 6. Multivitamin 1 tablet p.o. q. noon. 7. Lopressor 25 mg p.o. b.i.d. 8. Lispro 15 units in the morning, 12 units subQ b.i.d. 9. Toujeo Solostar 40 units subQ q.h.s. 10. Vasotec 5 mg p.o. daily. 11. Valium 10 mg p.o. b.i.d. 12. Plavix 75 p.o. daily. 13. Aspirin 81 mg p.o. daily. Allergies to KEFLEX with nausea, vomiting. On examination, temperature 98, pulse 85, respirations 18, blood pressure 131/65, pulse ox 96% on 2 L. GENERAL APPEARANCE: Well built, BMI of 36.3, sitting up, not in distress. EYES: Pupils equal. Conjunctivae are normal. HEENT: Oral cavity normal. NECK: JVD not raised. Mass not palpable. RESPIRATORY: Effort normal. LUNGS: Slight decreased breath sounds. CARDIOVASCULAR: First and second sounds normal. No edema. ABDOMEN: Soft, nontender. Liver and spleen not palpable. LYMPHATICS: No lymph node palpable in neck or axillae. PSYCHIATRY: Mood and affect normal. NEUROLOGICAL: Pupils are equal, grossly intact. Power and sensation grossly intact. INVESTIGATIONS: White count 11, hemoglobin 14.4. Potassium 4.5, first troponin negative. EKG normal sinus rhythm. ASSESSMENT: 1. Unstable angina in a patient with known coronary artery disease with stent with negative troponin. 2. Obesity; body mass index of 36.3. 3. Coronary artery disease with prior history of stent. 4. Diabetes mellitus type 2, chronically on insulin. 5. Gastroesophageal reflux disease. 6. Hyperlipidemia. 7. Essential hypertension. 8. Peptic ulcer disease. 9. Osteoarthritis of multiple joints, primary. PLAN: Home medications are resumed. Cardiology was consulted. Nitro paste was placed as well as IV heparin. Questions were answered.
--- NOTE | 2016-10-08 14:34 | EST ---
DATE OF SERVICE: 10/08/2016 AGE: 61Y SEX: M HT: 5'11" WT: 260 lbs. Protocol Manjeet: Other: Lexiscan Cardiolite Stage: Dur. of Exercise: *Heart Rate Blood Pressure *Rest: 75 Rest: 200/86 * *Max. Achieved: 90 Maximum BP: 202/75 85% PMHR: 135 100% PMHR: 159 *METS: INDICATION OF THE STUDY: Chest pain. MEDICATIONS: STRESS DATA: Pretesting physical examination showed a heart rate of 75, pressure 200/86 mmHg. Baseline EKG showed sinus rhythm. The patient was given 0.4 mg of Lexiscan over 15 second per protocol. Max heart rate was 90 beats per minute. Maximum pressure was 202/75 mmHg. Clinically, the patient did not have any symptoms of chest pain or discomfort and the EKG did not show any ischemic changes. CONCLUSION: 1. Nondiagnostic electrocardiogram stress testing in response to Lexiscan. 2. Please follow up on the Cardiolite portion on a separate report from the radiology department.
[2016-10-08 17:06] LABS: Glucose,Whole Blood 209 mg/dL (75-99)
[2016-10-08] MEDS: PRAVASTATIN SODIUM 80 MG TAB PO SCH (20:32)
[2016-10-08] MEDS: INSULIN GLARGINE 100 UNIT/ML 10 ML VIAL SQ SCH (20:33)
[2016-10-08 21:28] LABS: Glucose,Whole Blood 127 mg/dL (75-99)
--- NOTE | 2016-10-08 21:57 | PN ---
DATE OF SERVICE: 10/08/2016 PRESENTING COMPLAINT: Chest pain. INTERVAL HISTORY: This patient with cardiac sounding chest pain with loss of family member. The patient underwent a stress test today which came back to be positive. Awaiting further input from cardiology. The patient has been pretty much in bed. Review of systems done for constitutional, cardiovascular, GI, pulmonary; findings as above. Current medications are reviewed. On examination, temperature 97.7, pulse 81, respirations 18, blood pressure 102/84, pulse ox 96% on room air. GENERAL APPEARANCE: Lying in bed, not in distress. EYES: Pupils equal. Conjunctivae normal. NECK: JVD not raised. Mass not palpable. RESPIRATORY: Effort normal. LUNGS: Slightly decreased breath sounds. CARDIOVASCULAR: First and second sounds normal. No edema. ABDOMEN: Soft, nontender. Liver and spleen not palpable. PSYCHIATRY: Alert, oriented x3. Mood normal. INVESTIGATIONS: Accu-Cheks are noted. Triglycerides 420. Troponin negative. ASSESSMENT: 1. Unstable angina. Patient with known coronary artery disease, now has come back with positive stress test. 2. Obesity, body mass index 36.3. 3. Coronary artery disease with prior history of stent. 4. Diabetes mellitus type 2, chronically on insulin, uncontrolled. 5. Gastroesophageal reflux disease. 6. Hyperlipidemia. 7. Essential hypertension. 8. Peptic ulcer disease. 9. Primary osteoarthritis of multiple joints. PLAN: Continue current medication and treatment plan. Awaiting further input from Cardiology. Patient probably will end up getting cardiac cath. Care was discussed with the patient. Will follow.
[2016-10-09 02:12] LABS: Glucose,Whole Blood 192 mg/dL (75-99)
[2016-10-09 05:33] VITALS: RESP 18
[2016-10-09] MEDS: NITROGLYCERIN OINT 1 INCH/GM PACKET TOPICAL SCH ×2 (06:03→11:19)
[2016-10-09 06:17] LABS: Glucose,Whole Blood 204 mg/dL (75-99)
[2016-10-09] MEDS: DIAZEPAM 5 MG TAB PO SCH ×2 (09:09→21:37)
[2016-10-09] MEDS: oxyCODONE-APAP 10-325MG 1 EACH TAB PO PRN ×2 (09:09→21:45)
[2016-10-09] MEDS: ASPIRIN 325 MG TAB PO SCH (09:10)
[2016-10-09] MEDS: PANTOPRAZOLE 40 MG TABLET PO SCH (09:10)
[2016-10-09] MEDS: METOPROLOL TARTRATE 25 MG TAB PO SCH ×2 (09:11→21:37)
[2016-10-09] MEDS: amLODIPine 10 MG TAB PO SCH (09:11)
[2016-10-09] MEDS: LISINOPRIL 10 MG TAB PO SCH (09:11)
[2016-10-09] MEDS: CLOPIDOGREL 75 MG TAB PO SCH (09:11)
[2016-10-09 09:43] LABS: Basophils # (A) 0.1 k/uL (0-0.2); Basophils % (A) 1 %; CH 28.7; CHCM 34.4; Eosinophils # (A) 0.2 k/uL (0-0.7); Eosinophils % (A) 1 %; HCT 41.9 % (39.0-53.0); HDW 2.85; HGB 14.2 gm/dL (13.0-17.5); Luc # (Auto) 0.28; Luc % (Auto) 3; Lymphocytes # (A) 2.3 k/uL (1.0-4.8); Lymphocytes % (A) 21 %; MCH 28.4 pg (25.0-35.0); MCHC 33.9 g/dL (31.0-37.0); MCV 83.6 fL (80.0-100.0); Mean Platelet Volume 7.5; Monocytes # (A) 0.5 k/uL (0-1.0); Monocytes % (A) 5 %; Neutrophils # (A) 7.9 k/uL (1.3-7.7); Neutrophils % (A) 70 %; RBC 5.01 m/uL (4.30-5.90); RDW 12.7 % (11.5-15.5); WBC 11.2 k/uL (3.8-10.6); WBC (Perox) 11.07
[2016-10-09 09:46] LABS: Glucose,Whole Blood 197 mg/dL (75-99)
[2016-10-09 10:06] LABS: Anion Gap 9 mmol/L; Blood Urea Nitrogen 14 mg/dL (9-20); Calcium 9.5 mg/dL (8.4-10.2); Carbon Dioxide 27 mmol/L (22-30); Chloride 103 mmol/L (98-107); Glucose 191 mg/dL (74-99); Non-African American GFR(MDRD) >60 (>60 ml/min/1.73 sqM); Potassium 4.4 mmol/L (3.5-5.1); Sodium 139 mmol/L (137-145)
[2016-10-09] MEDS ORDERED: SODIUM CHLORIDE 0.9% 1,000 ML in EMPTY BAG 1 BAG IV ONE (10:25)
[2016-10-09] MEDS ORDERED: NITROGLYCERIN SL TABS 0.4 MG TAB SUBLINGUAL PRN (10:25)
[2016-10-09] MEDS ORDERED: ALPRAZolam 0.5 MG TAB PO PRN (10:25)
[2016-10-09] MEDS ORDERED: ATORVASTATIN 80 MG TAB PO STA (10:25)
[2016-10-09] MEDS ORDERED: ALPRAZolam 0.25 MG TAB PO PRN (10:25)
[2016-10-09] MEDS ORDERED: ASPIRIN 325 MG TAB PO STA (10:25)
[2016-10-09] MEDS: INSULIN LISPRO (humaLOG) 300 UNIT/3 ML VIAL SQ SCH ×3 (11:10→18:35)
[2016-10-09] MEDS: PREGABALIN 100 MG CAP PO SCH ×2 (11:16→21:37)
[2016-10-09] MEDS: MULTIVITAMINS, THERA 1 EACH TAB PO SCH (11:16)
[2016-10-09] MEDS ORDERED: LIDOCAINE 2% INJ 20 MG/ML (20 ML MDV) ONE (11:48)
[2016-10-09] MEDS ORDERED: VERAPAMIL 2.5 MG/ML 2 ML AMP ONE (11:49)
[2016-10-09] MEDS ORDERED: diphenhydrAMINE 50 MG/ML 1 ML VIAL ONE (11:52)
[2016-10-09] MEDS ORDERED: MIDAZOLAM 2 MG/2 ML VIAL ONE (11:52)
[2016-10-09] MEDS ORDERED: IV FLUID CONTINUATION 1,000 ML IV ONE (12:15)
[2016-10-09] MEDS ORDERED: MIDAZOLAM 2 MG/2 ML VIAL IVP ONE (12:23)
[2016-10-09] MEDS ORDERED: LIDOCAINE 2% INJ 20 MG/ML SQ ONE (12:29)
[2016-10-09] MEDS ORDERED: HEPARIN SODIUM 1,000 UNIT/ML VIAL ONE (12:30)
[2016-10-09] MEDS: VERAPAMIL SYRINGE (5 MG/10 ML) INTRAARTER ONE ×2 (12:31→13:01)
[2016-10-09] MEDS ORDERED: HEPARIN SODIUM 1,000 UNIT/ML VIAL IV ONE (12:36)
[2016-10-09] MEDS: NITROGLYCERIN 1000MCG/10ML SYRINGE INTRACORON ONE ×3 (12:41→12:55)
[2016-10-09] MEDS ORDERED: HYDROmorphone 2 MG/ML 1 ML SYRINGE ONE (12:57)
[2016-10-09] MEDS ORDERED: NITROGLYCERIN SL TABS 0.4 MG TAB SUBLINGUAL ONE ×2 (12:58→12:59)
[2016-10-09] MEDS ORDERED: HYDROmorphone 2 MG/ML 1 ML SYRINGE IVP ONE (12:59)
[2016-10-09] MEDS ORDERED: IOHEXOL 350 MG/ML 100 ML BOTTLE INJ ONE (13:02)
[2016-10-09] MEDS ORDERED: RX INFO: IV CONTRAST WAS GIVEN 1 EACH MISC MISCELLANE PRN (13:13)
[2016-10-09 17:47] LABS: Glucose,Whole Blood 277 mg/dL (75-99)
[2016-10-09 21:13] LABS: Glucose,Whole Blood 128 mg/dL (75-99)
[2016-10-09] MEDS: INSULIN GLARGINE 100 UNIT/ML 10 ML VIAL SQ SCH (21:37)
[2016-10-09] MEDS: PRAVASTATIN SODIUM 80 MG TAB PO SCH (21:37)
[2016-10-10 05:47] LABS: Glucose,Whole Blood 233 mg/dL (75-99)
[2016-10-10] MEDS: SODIUM CHLORIDE 0.9% 1,000 ML IV SCH (06:38)
[2016-10-10 06:46] LABS: Basophils # (A) 0.1 k/uL (0-0.2); Basophils % (A) 1 %; CH 28.3; CHCM 34.1; Eosinophils # (A) 0.2 k/uL (0-0.7); Eosinophils % (A) 2 %; HCT 42.3 % (39.0-53.0); HDW 2.91; HGB 14.3 gm/dL (13.0-17.5); Luc # (Auto) 0.26; Luc % (Auto) 2; Lymphocytes % (A) 26 %; MCH 28.2 pg (25.0-35.0); MCHC 33.8 g/dL (31.0-37.0); MCV 83.4 fL (80.0-100.0); Mean Platelet Volume 7.2; Monocytes # (A) 0.6 k/uL (0-1.0); Monocytes % (A) 5 %; Neutrophils # (A) 7.3 k/uL (1.3-7.7); Neutrophils % (A) 64 %; RBC 5.07 m/uL (4.30-5.90); RDW 12.7 % (11.5-15.5); WBC 11.4 k/uL (3.8-10.6); WBC (Perox) 12.44
[2016-10-10 07:28] LABS: Anion Gap 11 mmol/L; Blood Urea Nitrogen 16 mg/dL (9-20); Calcium 9.5 mg/dL (8.4-10.2); Carbon Dioxide 25 mmol/L (22-30); Chloride 102 mmol/L (98-107); Glucose 224 mg/dL (74-99); Non-African American GFR(MDRD) >60 (>60 ml/min/1.73 sqM); Potassium 4.6 mmol/L (3.5-5.1); Sodium 138 mmol/L (137-145)
[2016-10-10] MEDS ORDERED: ASPIRIN 81 MG CHEW PO SCH (09:00)
[2016-10-10] MEDS: CLOPIDOGREL 75 MG TAB PO SCH (09:23)
[2016-10-10] MEDS: LISINOPRIL 10 MG TAB PO SCH (09:23)
[2016-10-10] MEDS: PANTOPRAZOLE 40 MG TABLET PO SCH (09:23)
[2016-10-10] MEDS: METOPROLOL TARTRATE 25 MG TAB PO SCH (09:23)
[2016-10-10] MEDS: INSULIN LISPRO (humaLOG) 300 UNIT/3 ML VIAL SQ SCH ×2 (09:24→11:54)
[2016-10-10] MEDS: amLODIPine 10 MG TAB PO SCH (09:24)
[2016-10-10] MEDS: oxyCODONE-APAP 10-325MG 1 EACH TAB PO PRN (09:32)
[2016-10-10] MEDS: PREGABALIN 100 MG CAP PO SCH (09:32)
[2016-10-10] MEDS: DIAZEPAM 5 MG TAB PO SCH (09:32)
--- NOTE | 2016-10-10 10:24 | CC ---
DATE OF SERVICE: 10/09/2016 PROCEDURE: Left heart catheterization, coronary angiography. PERFORMED BY: Marycruz Martinez. CLINICAL INFORMATION: Mr. Jeremiah Pedroza is a 61-year-old gentleman with a history of diabetes mellitus, hypertension, hyperlipidemia, CAD, previous non-ST elevation IL and also peripheral arterial disease with previous intervention of peripheral arterial vessels as well. This gentleman underwent stenting of right coronary artery as well as the PDA branch of RCA in 2006 and 2010 respectively. He underwent circumflex stenting performed by me in June of this year. He came into the hospital with symptoms of chest pain, had negative troponins, but stress test revealed anterior reversible defect and old inferior IL with preserved LV function. He was advised repeat cardiac catheterization. He has a significant peripheral arterial disease with calcified system and pulses are very feeble, I could not feel them, and therefore I recommended a radial card cath for the patient even though Yovany test was not perfect. The right radial pulse was excellent. The risks, benefits, options and rationale were explained to the patient and his . PROCEDURE NOTE: Under local anesthesia and strict aseptic precautions, a 6 [place] introducer was placed in the right radial artery. I used an Ultimate One catheter to perform selective coronary angiography of the left system. The left main is very short, and I kept cannulating the circumflex selectively. However, I obtained circumflex injections with this vessel and switched over to a 3.5 XB LAD guide catheter. With this I performed selective injections of the LAD. Subsequently, using a standard right Luis Angel catheter, I performed selective coronary angiography of the right coronary artery. The flow in the RCA was sluggish. Patient had a transient occlusion of the PDA but with nitroglycerin the vessel opened up, the flow was brisk, and patient's chest pain was relieved. EKG changes normalized. I then checked LV pressures but did not perform an LV gram. The sheath was taken out and TR band applied as per protocol. The patient was sent to the room in stable condition with good saturation in the fingers of the right hand. CARDIAC CATHETERIZATION FINDINGS: The left ventricular end-diastolic pressure was 22 mmHg and there was no gradient across the aortic valve. CORONARY ANGIOGRAPHY FINDINGS: LEFT CORONARY ARTERY: The left main coronary artery is a very short vessel, that seems to almost give 2 independent origins. There is no significant disease. LEFT ANTERIOR DESCENDING CORONARY ARTERY: I had multiple angiograms obtained of this vessel. The proximal LAD is free of significant disease. It gives off a diagonal branch. The mid LAD has about a 40% to 50% narrowing, gives off several septal branches, runs all the way to the apex supplying a sizable amount of myocardium. The LAD therefore has about a 40% to 45% mid lesion calcified diffuse disease, but no critical stenosis is noted. Multiple images were re obtained in various projections. LEFT POSTERIOR CIRCUMFLEX CORONARY ARTERY: Technically this is a nondominant vessel that was stented in June of this year. The stented segment is widely patent. The AV groove branch is jailed but flow is brisk. Distally the circumflex has diffuse in it. The branches are diffusely diseased and also heavily calcified. Distal circumflex marginal has diffuse disease in the cranial projection. There is about a 40% to 50% stenosis or more, but disease is not focal but diffuse. RIGHT CORONARY ARTERY: This is performed in 30 degree UGALDE projection. Initial injections revealed sluggish flow and the PDA did not have much flow. After nitroglycerin the flow improved remarkably. There are 2 areas of stenting in RCA, which are patent. The PDA was stented. The stented segments are patent with 30% to 35% narrowing and multiple areas of diffuse narrowing are seen. The right coronary artery is a dominant vessel. There is no critical stenosis, but diffuse disease is seen throughout. LEFT VENTRICULOGRAM: This was not performed, but LV pressures were obtained. FINAL IMPRESSION: This patient has elevated filling pressures. The circumflex that was stented is widely patent, but distantly circumflex has diffuse moderate disease. LAD has a 40% to 45% mid lesion with multiple areas of diffuse narrowing. The right coronary artery is dominant, has disease in the PDA and RCA with of about 30% to 45%, diffuse in nature. RECOMMENDATIONS: Findings were discussed with the patient and . I am recommending aggressive medical therapy with risk factor modification. The findings were explained to the patient, that there is no critical lesion that requires intervention, but we will pursue aggressive medical therapy with risk factor modification. Patient is able to tolerate only pravastatin. This patient received moderate conscious sedation for about 30 minutes with Versed and Benadryl and oxygenation was monitored closely.
--- NOTE | 2016-10-10 10:27 | LTR ---
October 09, 2016 Tr Naqvi MD RE: Jeremiah Pedroza Dear Dr. Naqvi: Thank you for the opportunity to participate in the care of Mr. Jeremiah Pedroza. This gentleman has diffuse coronary disease. The previously stented circumflex is patent, but he has diffuse disease in other vessels for which I am recommending medical therapy. He presented with unstable angina and had an abnormal stress test with LAD ischemia, but I think LAD does not have critical lesion. We will pursue aggressive medical therapy and risk factor modification. Overall prognosis is poor for this gentleman. Thank you for the referral. Please call for questions. With kindest regards. Sincerely, JULIET HOSKINS MD
--- NOTE | 2016-10-10 11:30 | PN ---
DATE OF SERVICE: 10/09/2016 PRESENTING COMPLAINT: Chest pain. INTERVAL HISTORY: Patient presented with chest pain. Had a positive stress test, awaiting a cardiac cath. When I saw this patient, is lying in bed no further chest pain. Review of systems done for constitutional, cardiovascular, GI, pulmonary findings as above. Current medications are reviewed. On examination, temperature 98, pulse 78, respiration 18, blood pressure 165/94, pulse ox 98% on room air. GENERAL APPEARANCE: Lying in bed, comfortable. EYES: Pupils equal. Conjunctivae normal. NECK: JVD not raised. Mass not palpable. RESPIRATORY: Effort normal. Lungs are slightly decreased breath sounds. CARDIOVASCULAR: First and second sounds normal. No edema. ABDOMEN: Soft, nontender. Liver and spleen not palpable. PSYCHIATRY: Alert and oriented times three. Mood and affect normal. INVESTIGATIONS: White count 9.2. Hemoglobin 14.2. Accu-Cheks are noted. ASSESSMENT: 1. Unstable angina in a patient with known coronary artery disease, now has a positive stress, awaiting a cardiac catheterization. 2. Obesity, body mass index of 36.3. 3. Coronary artery disease with prior history of stent. 4. Diabetes mellitus, type II, chronically on insulin. 5. Gastroesophageal reflux disease. 6. Hyperlipidemia. 7. Essential hypertension. 8. Peptic ulcer disease. 9. Primary osteoarthritis multiple joints, bilateral. PLAN: Continue current medications and treatment plan. Await cardiac catheterization, follow clinically.
[2016-10-10] MEDS: MULTIVITAMINS, THERA 1 EACH TAB PO SCH (11:53)
[2016-10-10 11:58] LABS: Glucose,Whole Blood 261 mg/dL (75-99)
[2016-10-10 13:24] VITALS: BP 128/72
[2016-10-10 13:31] VITALS: PULSE 77; TEMP 98.3
--- NOTE | 2016-10-10 17:30 | PN ---
Mr. Pedroza underwent a cardiac cath by me yesterday from right radial approach. He has some diffuse disease in all 3 coronary arteries, but the stented segments are patent. He is doing well today. Vital signs are stable. Right radial cath site is clean and dry with a good pulse. S1 and S2 heard normally. Lungs reveal decent air entry. Abdomen and lower extremity exam unchanged. Plan is to discharge him and I will see him in the office in one week. He will continue aspirin and Plavix as advised and is fully aware of the medications. I reviewed all of them with him.
--- NOTE | 2016-10-12 08:28 | DS ---
DATE OF ADMISSION: 10/08/2016 DATE OF DISCHARGE: 10/10/2016 FINAL DIAGNOSES: 1. Unstable angina in a patient with known coronary artery disease with a positive stress test found to have coronary artery disease. 2. Obesity, body mass index of 36.3. 3. Coronary artery disease with prior history of stent. 4. Diabetes mellitus type 2, chronically on insulin. 5. Gastroesophageal reflux disease. 6. Hyperlipidemia. 7. Essential hypertension. 8. Peptic ulcer disease. 9. Primary osteoarthritis of multiple joints, bilaterally. CONSULTATION: Dr. Marycruz Martinez from cardiology. PROCEDURE: Cardiac catheterization showed diffuse disease, no intervention was carried out and medical management was done. HOSPITAL COURSE: This patient presented with chest pain, has a positive stress test, underwent a cardiac catheterization. Was found to have some diffuse disease, no critical stenosis, medical management was decided. Patient was seen by Dr. Marycruz Martinez. Doing better by the time of discharge. No chest pain or shortness of breath. ON EXAMINATION: LUNGS: Decreased breath sounds. CARDIOVASCULAR: First and second sounds normal. DISCHARGE MEDICATIONS: 1. Lopressor 25 p.o. b.i.d. 2. Plavix 75 mg p.o. daily. 3. Nitrostat 0.4 sublingual q.5 p.r.n. 4. Pravachol 80 mg q.h.s. 5. Lyrica 100 mg p.o. b.i.d. 6. Percocet 10/325 one tablet q.8 p.r.n. 7. Valium 10 mg p.o. b.i.d. 8. Humalog 12 units subcu b.i.d. 9. Omeprazole 20 mg p.o. daily. 10. Aspirin 81 mg p.o. daily. 11. Multivitamin 1 tablet p.o. daily. 12. Humalog 15 units in the morning. 13. Zestril 10 mg p.o. daily. 14. Norvasc 10 mg p.o. daily. Follow up with Dr. Marycruz Martinez in one week. Follow up with Dr. Naqvi in 3 days. ON EXAM: LUNGS: Decreased breath sounds. CARDIOVASCULAR: First and second sounds normal. Discharge planning more than 35 minutes including discussion.
== END 2016-10-10 14:13 | disposition hospice, home (50) | DRG 287 ==
LOC: EC 17:02 → 3OBS 20:45 → OBSVTOIN 10-08 15:16 → 6SEL 10-08 20:13
PROVIDERS: ADMIT Hospitalist; ATTEND Hospitalist
PROC: B211YZZ Fluoroscopy of Multiple Coronary Arteries using Other Contrast (ICD-10-PCS; 2016-10-09)
PROC: 4A023N7 Measurement of Cardiac Sampling and Pressure, Left Heart, Percutaneous Approach (ICD-10-PCS; principal; 2016-10-09 11:47)
DX: I25.110 Atherosclerotic heart disease of native coronary artery with unstable angina pectoris (principal); I10 Essential (primary) hypertension; E11.9 Type 2 diabetes mellitus without complications; E66.9 Obesity, unspecified; Z68.36 Body mass index [BMI] 36.0-36.9, adult; K21.9 Gastro-esophageal reflux disease without esophagitis; E78.5 Hyperlipidemia, unspecified; I25.2 Old myocardial infarction; I73.9 Peripheral vascular disease, unspecified; M19.91 Primary osteoarthritis, unspecified site; Z86.59 Personal history of other mental and behavioral disorders; Z87.11 Personal history of peptic ulcer disease; Z95.5 Presence of coronary angioplasty implant and graft; Z86.73 Personal history of transient ischemic attack (TIA), and cerebral infarction without residual deficits; Z87.891 Personal history of nicotine dependence; Z79.02 Long term (current) use of antithrombotics/antiplatelets; Z79.82 Long term (current) use of aspirin; Z79.4 Long term (current) use of insulin; Z79.899 Other long term (current) drug therapy
CPT/HCPCS: 36415; 71020; 78452; 80048; 80053; 80061; 82550; 82553; 83735; 84484; 85025; 85610; 85730; 93005; 93017; 93458; 94760; 96365; 96366; 96374; 96375; 96376; 99285

== ENCOUNTER → 2016-10-07 | Outpatient (CLI) | payer MEDICARE, OTHER | END | disposition home or self-care (01) | LOC: RADMRIMAIN 17:39 | PROVIDERS: ATTEND Psychiatry & Neurology Pain Medicine | DX: Z53.9 Procedure and treatment not carried out, unspecified reason (principal) ==

== ENCOUNTER 2016-11-06 06:19 | Inpatient (IN) | payer MEDICARE, OTHER ==
--- NOTE | 2016-11-06 06:33 | ED ---
General Adult HPI <Jay,Den - Last Filed: 11/06/16 07:30> - General Source: EMS, RN notes reviewed, old records reviewed Mode of arrival: EMS Limitations: no limitations <AimeDen Bhumi - Last Filed: 11/06/16 23:01> - General Chief complaint: Chest Pain Stated complaint: Chest Pain - History of Present Illness Initial comments: This is a 61 male to the ED with chest pain, patient has severe substernal chestpain radiating to Left jaw. Patient has significant history of heart disease with stents. Patient's told that his heart disease is severe possibly literally can do at this point. Patient is on blood thinners at the clavicle G is taking. Patient states he does has anterior serious substernal chest pain have a history of a prior AL diaphoresis shortness of breath or radiation the left jaw. No fevers no cough or congestion. No recent travel history or sick contacts. Again patient was hospitalized this year for similar symptoms ( Den Salomon) - Related Data Home Medications Medication Instructions Recorded Confirmed Metoprolol Tartrate [Lopressor] 25 mg PO BID 10/26/13 11/06/16 Clopidogrel [Plavix] 75 mg PO DAILY 01/10/14 11/06/16 Nitroglycerin Sl Tabs [Nitrostat] 0.4 mg SUBLINGUAL Q5M PRN 01/10/14 11/06/16 Pravastatin Sodium [Pravachol] 80 mg PO HS 06/08/16 11/06/16 Pregabalin [Lyrica] 100 mg PO BID 06/08/16 11/06/16 oxyCODONE-APAP 10-325MG [Percocet 1 tab PO Q8H PRN 06/08/16 11/06/16 10-325 mg] Diazepam [Valium] 10 mg PO BID 08/06/16 11/06/16 Insulin Lispro [humaLOG Kwikpen] 12 unit SQ BID 08/06/16 11/06/16 Omeprazole 20 mg PO DAILY 08/06/16 11/06/16 Insulin Glargine,Hum.rec.anlog 40 units SQ HS 10/07/16 11/06/16 [Christina Carrillo] Insulin Lispro [humaLOG Kwikpen] 15 unit SQ QAM 10/07/16 11/06/16 Multivitamins, Thera [Multivitamin 1 tab PO DAILY 11/06/16 11/06/16 (formulary)] Previous Rx's Medication Instructions Recorded Aspirin 81 mg PO DAILY #30 chew 08/08/16 amLODIPine [Norvasc] 10 mg PO DAILY #30 tab 10/10/16 Allergies Allergy/AdvReac Type Severity Reaction Status Date / Time cephalexin monohydrate Allergy Nausea & Verified 11/06/16 10:30 [From Keflex] Vomiting & Diarrhea Review of Systems ROS Other: All systems not noted in ROS Statement are negative. <Den Jay - Last Filed: 11/06/16 07:30> ROS Other: All systems not noted in ROS Statement are negative. <Den Salomon - Last Filed: 11/06/16 23:01> ROS Statement: Those systems with pertinent positive or pertinent negative responses have been documented in the HPI. Past Medical History Past Medical History: Coronary Artery Disease (CAD), Chest Pain / Angina, CVA/ TIA, Diabetes Mellitus, GERD/Reflux, Hyperlipidemia, Hypertension, Memory Impairment Additional Past Medical History / Comment(s): ulcer in stomach , fell May 2013 and hit head and had a brain bleed-from possible TIA. History of Any Multi-Drug Resistant Organisms: MRSA Date of last positivie culture/infection: 2010 MDRO Source:: RESPIRATORY/UNSURE Past Surgical History: Heart Catheterization With Stent, Orthopedic Surgery, Tonsillectomy Additional Past Surgical History / Comment(s): bunionectomy, amy rotator cuff, HEART STENTS X3, LEFT LEG ARTERY X2 STENTS. COLONOSCOPY, Past Anesthesia/Blood Transfusion Reactions: Motion Sickness Date of Last Stent Placement:: 2016 Past Psychological History: Depression Smoking Status: Former smoker Past Alcohol Use History: None Reported Past Drug Use History: None Reported - Past Family History Mother Family Medical History: No Reported History <Den Salomon - Last Filed: 11/06/16 23:01> General Exam Limitations: no limitations General appearance: alert, in no apparent distress, anxious, obese Head exam: Present: atraumatic, normocephalic, normal inspection Eye exam: Present: normal appearance, PERRL, EOMI. Absent: scleral icterus, conjunctival injection, periorbital swelling ENT exam: Present: normal exam, mucous membranes moist Neck exam: Present: normal inspection. Absent: tenderness, meningismus, lymphadenopathy Respiratory exam: Present: normal lung sounds bilaterally. Absent: respiratory distress, wheezes, rales, rhonchi, stridor Cardiovascular Exam: Present: regular rate, normal rhythm, normal heart sounds. Absent: systolic murmur, diastolic murmur, rubs, gallop, clicks GI/Abdominal exam: Present: soft, normal bowel sounds. Absent: distended, tenderness, guarding, rebound, rigid Extremities exam: Present: normal inspection, full ROM, normal capillary refill. Absent: tenderness, pedal edema, joint swelling, calf tenderness Back exam: Present: normal inspection Neurological exam: Present: alert, oriented X3, CN II-XII intact Psychiatric exam: Present: normal affect, normal mood Skin exam: Present: warm, dry, intact, normal color. Absent: rash <Den Salomon - Last Filed: 11/06/16 23:01> Course <Den Jay - Last Filed: 11/06/16 07:30> <Den Salomon - Last Filed: 11/06/16 23:01> Vital Signs 11/06/16 11/06/16 11/06/16 06:20 06:55 07:40 Temperature 97.7 F Pulse Rate 89 76 83 Respiratory 22 18 16 Rate Blood Pressure 206/86 177/77 180/80 O2 Sat by Pulse 100 99 97 Oximetry - Reevaluation(s) Reevaluation #1: 11/06/16 06:50 Medical record including prior heart history as reviewed (Den Salomno) Reevaluation #2: 11/06/16 06:50 Patient's with pain and high although blood pressure is improving and pain is improving 11/06/16 06:50 Morphine and labetalol (Den Salomon) EKG Findings - EKG Comments: EKG Findings:: EKG shows normal sinus rhythm rate of 83, SD 156, QRS 86, QTc 458 <Den Salomno - Last Filed: 11/06/16 23:01> Medical Decision Making - Lab Data Result diagrams: 11/06/16 06:25 11/06/16 06:25 <Den Jay Filed: 11/06/16 07:30> - Lab Data Result diagrams: 11/06/16 06:25 11/06/16 06:25 <Den Salomon - Last Filed: 11/06/16 23:01> - Medical Decision Making 61 year with history of heart disease coming in with significant typical anterior chest pain having a strain to jaw, history of heart disease, troponin mildly elevated, no EKG changes, patient will be admitted for anticoagulation telemetry, sterile troponins and cardiopulmonary observation (Den Salomon) - Lab Data Lab Results 11/06/16 11/06/16 11/06/16 Range/Units 06:25 06:25 06:25 WBC 11.5 H (3.8-10.6) k/uL RBC 4.80 (4.30-5.90) m/uL Hgb 13.8 (13.0-17.5) gm/dL Hct 39.5 (39.0-53.0) % MCV 82.2 (80.0-100.0) fL MCH 28.7 (25.0-35.0) pg MCHC 35.0 (31.0-37.0) g/dL RDW 12.9 (11.5-15.5) % Plt Count 231 (150-450) k/uL Neutrophils % 69 % Lymphocytes % 22 % Monocytes % 5 % Eosinophils % 2 % Basophils % 1 % Neutrophils # 7.9 H (1.3-7.7) k/uL Lymphocytes # 2.5 (1.0-4.8) k/uL Monocytes # 0.6 (0-1.0) k/uL Eosinophils # 0.2 (0-0.7) k/uL Basophils # 0.1 (0-0.2) k/uL PT (9.0-12.0) sec INR (<1.1) APTT (22.0-30.0) sec Sodium 141 (137-145) mmol/L Potassium 4.2 (3.5-5.1) mmol/L Chloride 106 (98-107) mmol/L Carbon Dioxide 25 (22-30) mmol/L Anion Gap 10 mmol/L BUN 14 (9-20) mg/dL Creatinine 0.66 (0.66-1.25) mg/dL Est GFR (MDRD) Af Amer >60 (>60 ml/min/1.73 sqM) Est GFR (MDRD) Non-Af >60 (>60 ml/min/1.73 sqM) Glucose 271 H (74-99) mg/dL Calcium 9.1 (8.4-10.2) mg/dL Magnesium 1.9 (1.6-2.3) mg/dL Total Bilirubin 0.6 (0.2-1.3) mg/dL AST 13 L (17-59) U/L ALT 24 (21-72) U/L Alkaline Phosphatase 90 (38-126) U/L Total Creatine Kinase 37 L (55-170) U/L CK-MB (CK-2) 0.9 (0.0-2.4) ng/mL CK-MB (CK-2) Rel Index 2.4 Troponin I 0.028 (0.000-0.034) ng/mL NT-Pro-B Natriuret Pep pg/mL Total Protein 6.3 (6.3-8.2) g/dL Albumin 3.9 (3.5-5.0) g/dL Lipase 122 (23-300) U/L 11/06/16 11/06/16 Range/Units 06:25 06:25 WBC (3.8-10.6) k/uL RBC (4.30-5.90) m/uL Hgb (13.0-17.5) gm/dL Hct (39.0-53.0) % MCV (80.0-100.0) fL MCH (25.0-35.0) pg MCHC (31.0-37.0) g/dL RDW (11.5-15.5) % Plt Count (150-450) k/uL Neutrophils % % Lymphocytes % % Monocytes % % Eosinophils % % Basophils % % Neutrophils # (1.3-7.7) k/uL Lymphocytes # (1.0-4.8) k/uL Monocytes # (0-1.0) k/uL Eosinophils # (0-0.7) k/uL Basophils # (0-0.2) k/uL PT 10.1 (9.0-12.0) sec INR 1.0 (<1.1) APTT 23.5 (22.0-30.0) sec Sodium (137-145) mmol/L Potassium (3.5-5.1) mmol/L Chloride (98-107) mmol/L Carbon Dioxide (22-30) mmol/L Anion Gap mmol/L BUN (9-20) mg/dL Creatinine (0.66-1.25) mg/dL Est GFR (MDRD) Af Amer (>60 ml/min/1.73 sqM) Est GFR (MDRD) Non-Af (>60 ml/min/1.73 sqM) Glucose (74-99) mg/dL Calcium (8.4-10.2) mg/dL Magnesium (1.6-2.3) mg/dL Total Bilirubin (0.2-1.3) mg/dL AST (17-59) U/L ALT (21-72) U/L Alkaline Phosphatase (38-126) U/L Total Creatine Kinase (55-170) U/L CK-MB (CK-2) (0.0-2.4) ng/mL CK-MB (CK-2) Rel Index Troponin I (0.000-0.034) ng/mL NT-Pro-B Natriuret Pep 284 pg/mL Total Protein (6.3-8.2) g/dL Albumin (3.5-5.0) g/dL Lipase (23-300) U/L Critical Care Time Critical Care Time: Yes Total Critical Care Time: 31 <Den Salomon - Last Filed: 11/06/16 23:01> Disposition Time of Disposition: 07:30 <Den Jay - Last Filed: 11/06/16 07:30> <Den Salomon - Last Filed: 11/06/16 23:01> Clinical Impression: Unstable angina pectoris Disposition: ADMITTED IP TO THIS HOSP
[2016-11-06 06:44] LABS: Basophils # (A) 0.1 k/uL (0-0.2); Basophils % (A) 1 %; CH 28.5; CHCM 34.9; Eosinophils # (A) 0.2 k/uL (0-0.7); Eosinophils % (A) 2 %; HCT 39.5 % (39.0-53.0); HDW 2.84; HGB 13.8 gm/dL (13.0-17.5); Luc # (Auto) 0.23; Luc % (Auto) 2; Lymphocytes # (A) 2.5 k/uL (1.0-4.8); Lymphocytes % (A) 22 %; MCH 28.7 pg (25.0-35.0); MCV 82.2 fL (80.0-100.0); Mean Platelet Volume 8.1; Monocytes # (A) 0.6 k/uL (0-1.0); Monocytes % (A) 5 %; Neutrophils # (A) 7.9 k/uL (1.3-7.7); Neutrophils % (A) 69 %; RDW 12.9 % (11.5-15.5); WBC 11.5 k/uL (3.8-10.6); WBC (Perox) 10.63
[2016-11-06] MEDS ORDERED: HEPARIN SODIUM,PORCINE 5,000 UNIT/ML 1 ML VIAL IV PRN (06:44)
[2016-11-06] MEDS ORDERED: ASPIRIN 81 MG CHEW PO STA (06:44)
[2016-11-06] MEDS ORDERED: MORPHINE SULFATE 4 MG/ML SYRINGE IV PRN (06:44)
[2016-11-06] MEDS ORDERED: LABETALOL 5 MG/ML VIAL MDV IVP STA (06:44)
[2016-11-06] MEDS ORDERED: NITROGLYCERIN SL TABS 0.4 MG TAB SUBLINGUAL PRN (06:44)
[2016-11-06] MEDS ORDERED: MORPHINE SULFATE 4 MG/ML SYRINGE IVP STA (06:44)
[2016-11-06 06:53] LABS: ALT 24 U/L (21-72); AST 13 U/L (17-59); Alkaline Phosphatase 90 U/L (38-126); Anion Gap 10 mmol/L; Blood Urea Nitrogen 14 mg/dL (9-20); Calcium 9.1 mg/dL (8.4-10.2); Carbon Dioxide 25 mmol/L (22-30); Chloride 106 mmol/L (98-107); Glucose 271 mg/dL (74-99); Magnesium 1.9 mg/dL (1.6-2.3); Non-African American GFR(MDRD) >60 (>60 ml/min/1.73 sqM); Partial Thromboplastin Time 23.5 sec (22.0-30.0); Potassium 4.2 mmol/L (3.5-5.1); Prothrombin Time 10.1 sec (9.0-12.0); Sodium 141 mmol/L (137-145); Total Bilirubin 0.6 mg/dL (0.2-1.3); Total Protein 6.3 g/dL (6.3-8.2)
[2016-11-06] MEDS: HEPARIN SODIUM,PORCINE/D5W PMX 25,000 UNIT in DEXTROSE/WATER 1 500ML.BAG IV SCH (06:57)
[2016-11-06] MEDS: HEPARIN SODIUM,PORCINE 5,000 UNIT/ML 1 ML VIAL IV ONE ×2 (06:59→14:01)
[2016-11-06 07:19] LABS: Creatine Kinase MB 0.9 ng/mL (0.0-2.4); Troponin I 0.028 ng/mL (0.000-0.034)
--- NOTE | 2016-11-06 07:24 | XR ---
EXAMINATION TYPE: XR chest 2V DATE OF EXAM: 11/06/2016 COMPARISON: 10/07/2016 HISTORY: 61-year-old male with chest pain and shortness of breath TECHNIQUE: Frontal and lateral views FINDINGS: Heart is borderline enlarged. Rightward patient rotation alters the normal cardiomediastinal contours . Aorta within normal limits. Mild diffuse interstitial prominence similar to prior exam. No consolid ation or pleural effusion. IMPRESSION: 1. Stable borderline heart size. 2. Also, chronic changes, possible chronic bronchitis/asthma. No acute process seen.
[2016-11-06] MEDS ORDERED: INSULIN LISPRO (humaLOG) 300 UNIT/3 ML VIAL SQ SCH (09:00)
[2016-11-06] MEDS ORDERED: METOPROLOL TARTRATE 25 MG TAB PO SCH (09:00)
[2016-11-06 09:59] VITALS: BMI 36.7
[2016-11-06] MEDS: DIAZEPAM 5 MG TAB PO SCH ×2 (10:13→20:22)
[2016-11-06] MEDS: ISOSORBIDE MONONITRATE ER 30 MG TAB.ER.24H PO SCH (10:14)
[2016-11-06] MEDS: amLODIPine 10 MG TAB PO SCH (10:14)
[2016-11-06] MEDS: METOPROLOL TARTRATE 50 MG TAB PO SCH ×2 (10:14→20:22)
[2016-11-06] MEDS: PREGABALIN 100 MG CAP PO SCH ×2 (10:14→20:22)
[2016-11-06] MEDS: PANTOPRAZOLE 40 MG TABLET PO SCH (10:14)
[2016-11-06] MEDS: CLOPIDOGREL 75 MG TAB PO SCH (10:15)
--- NOTE | 2016-11-06 10:41 | CONS ---
ATTENDING: Dr. Naqvi Mr. Pedroza is a 61-year-old male who is followed by Dr. Ashleigh Martinez, who presented with symptoms of chest discomfort. The patient has a known history of coronary artery disease, underwent percutaneous revascularization of his RCA in 2006 and subsequently in June of this year underwent stenting of his left circumflex. He has a history of hypertension, hyperlipidemia and diabetes mellitus. He was admitted to the hospital last month with symptoms of chest discomfort and at that time he had abnormal myocardial perfusion imaging and underwent cardiac catheterization by Dr. Ashleigh Martinez and was found to have mild triple vessel coronary artery disease. Maximizing medical therapy was recommended. For the last few days he has been complaining of chest discomfort. The discomfort is not ( ) pattern, worse this morning radiating to the jaw. He took nitroglycerin without a lot of relief. Because of the persistent symptoms he came into the emergency room and admitted. He is usually reasonably active physically. He has no dyspnea on exertion. Has no exertional chest pain. He has discomfort in his legs and no known history of peripheral vascular disease. No significant dizziness, palpitations. No PND or orthopnea. His coronary risk factors are remarkable for hypertension, hyperlipidemia and diabetes mellitus. His medications at home include amlodipine 10 mg daily, Lyrica 100 mg twice a day, Pravastatin 80 mg daily, Omeprazole 20 mg daily, metoprolol tartrate 25 mg twice a day, insulin, Valium, Plavix 75 mg daily and aspirin once a day. REVIEW OF SYSTEMS: RESPIRATORY: No recent history of wheezing. He has no history of obstructive lung disease. GI SYSTEM: No recent GI bleeding. No peptic ulcer disease. SYSTEM: No dysuria or hematuria. NERVOUS SYSTEM: History of stroke. PHYSICAL EXAMINATION: He is a 61-year-old male, alert, oriented in no apparent distress. Blood pressure running in the 180s over 80s with heart rate in the 80s. HEAD: Normocephalic. EYES: Sclerae anicteric. NECK: Good upstroke. No bruits. No jugular venous distention. LUNGS: Clear to auscultation. HEART: Regular rate and rhythm, S1, S2. No S3. Systolic murmur heard at the base. No diastolic murmur. No rub. ABDOMEN: Soft, obese, nontender. Positive bowel sounds. No organomegaly. EXTREMITIES: No edema with decreased distal peripheral pulses. LAB DATA: Troponin 0.028. NT proBNP 284. BUN and creatinine of 14 and 0.6. Potassium4.2. Hemoglobin is 13.8. EKG revealed sinus mechanism, normal axis and intervals with no acute changes. IMPRESSION: 1. Chest discomfort of unclear etiology could be vasospastic disease. Patient has known history of diffuse mild obstructive disease with no high-grade stenosis by cardiac catheterization done a month ago. 2. History of prior stenting of the circumflex and right coronary artery that were patent. 3. History of hypertension. 4. Hyperlipidemia. 5. Diabetes mellitus. RECOMMENDATIONS: From the cardiac standpoint I will obtain serial enzymes. If there is no change then I would recommend to maximize his medical therapy. Adjustment of his regimen will be made and if he remains stable then he will continue medical therapy and follow up on a regular base with Dr. Ashleigh Martinez. Thank you for this consult. Will follow with you. SHAWN
[2016-11-06] MEDS: INSULIN LISPRO (humaLOG) 300 UNIT/3 ML VIAL SQ SCH ×6 (11:48→22:05)
[2016-11-06 12:02] LABS: Glucose,Whole Blood 260 mg/dL (75-99)
[2016-11-06] MEDS: MULTIVITAMINS, THERA 1 EACH TAB PO SCH (12:57)
[2016-11-06 13:33] LABS: Creatine Kinase MB 2.3 ng/mL (0.0-2.4)
[2016-11-06 13:41] LABS: Troponin I 0.167 ng/mL (0.000-0.034)
[2016-11-06] MEDS: oxyCODONE-APAP 10-325MG 1 EACH TAB PO PRN ×2 (14:41→23:51)
--- NOTE | 2016-11-06 17:04 | P.HPIM ---
History of Present Illness H&P Date: 11/06/16 Chief Complaint: Chest pain This is a 61-year-old patient of Dr. Naqvi whose last year about a month ago. Patient did have a cardiac catheterization and it showed diffuse disease with no significant stenosis and decision was made to do medical management. This was following a positive stress test. Patient's other chronic stable medical conditions include diabetes mellitus type 2, GERD, hyperlipidemia, essential hypertension, osteoarthritis. Patient now presents with frequent episodes of chest pain that including central chest pressure off and radiating to the jaw, sometimes short of breath, and couple of episodes of profuse sweating of variable duration. Admitted with the diagnosis of unstable angina Significant past mental history includes: Coronary artery disease with stent, obesity, diabetes mellitus type 2, GERD, hyperlipidemia, essential hypertension, peptic ulcer disease, primary osteoarthritis Review of Systems GEN.: Diet EYES: None HEENT: None NECK: None RESPIRATORY: As above CARDIOVASCULAR: As above GASTROINTESTINAL: None GENITOURINARY: None MUSCULOSKELETAL: Pain in the joints LYMPHATICS: None HEMATOLOGICAL: None PSYCHIATRY: None NEUROLOGICAL: None Past Medical History Past Medical History: Coronary Artery Disease (CAD), Chest Pain / Angina, CVA/ TIA, Diabetes Mellitus, GERD/Reflux, Hyperlipidemia, Hypertension, Memory Impairment Additional Past Medical History / Comment(s): ulcer in stomach , fell May 2013 and hit head and had a brain bleed-from possible TIA. History of Any Multi-Drug Resistant Organisms: MRSA Date of last positivie culture/infection: 2010 MDRO Source:: RESPIRATORY/UNSURE Past Surgical History: Heart Catheterization, Heart Catheterization With Stent, Orthopedic Surgery, Tonsillectomy Additional Past Surgical History / Comment(s): bunionectomy, amy rotator cuff, HEART STENTS X3, LEFT LEG ARTERY X2 STENTS. COLONOSCOPY, Past Anesthesia/Blood Transfusion Reactions: Motion Sickness Date of Last Stent Placement:: 2016 Past Psychological History: Depression Smoking Status: Former smoker Past Alcohol Use History: None Reported Past Drug Use History: None Reported Additional History: , patient's ex-smoker - Past Family History Mother Family Medical History: No Reported History Medications and Allergies Home Medications Medication Instructions Recorded Confirmed Type Metoprolol Tartrate [Lopressor] 25 mg PO BID 10/26/13 11/06/16 History Clopidogrel [Plavix] 75 mg PO DAILY 01/10/14 11/06/16 History Nitroglycerin Sl Tabs [Nitrostat] 0.4 mg SUBLINGUAL Q5M PRN 01/10/14 11/06/16 History Pravastatin Sodium [Pravachol] 80 mg PO HS 06/08/16 11/06/16 History Pregabalin [Lyrica] 100 mg PO BID 06/08/16 11/06/16 History oxyCODONE-APAP 10-325MG [Percocet 1 tab PO Q8H PRN 06/08/16 11/06/16 History 10-325 mg] Diazepam [Valium] 10 mg PO BID 08/06/16 11/06/16 History Insulin Lispro [humaLOG Kwikpen] 12 unit SQ BID 08/06/16 11/06/16 History Omeprazole 20 mg PO DAILY 08/06/16 11/06/16 History Insulin Glargine,Hum.rec.anlog 40 units SQ HS 10/07/16 11/06/16 History [Toujeo Solostar] Insulin Lispro [humaLOG Kwikpen] 15 unit SQ QAM 10/07/16 11/06/16 History Multivitamins, Thera [Multivitamin 1 tab PO DAILY 11/06/16 11/06/16 History (formulary)] Allergies Allergy/AdvReac Type Severity Reaction Status Date / Time cephalexin monohydrate Allergy Nausea & Verified 11/06/16 10:30 [From Keflex] Vomiting & Diarrhea Physical Exam Vitals: Vital Signs Temp Pulse Pulse Resp BP BP Pulse Ox 11/06/16 12:00 98.1 F 83 16 162/98 95 11/06/16 07:53 97.7 F 83 16 180/80 97 11/06/16 07:50 98.1 F 94 18 192/85 100 11/06/16 07:40 83 16 180/80 97 11/06/16 06:55 76 18 177/77 99 11/06/16 06:20 97.7 F 89 22 206/86 100 Intake and Output Patient Weight 11/07/16 06:59 Weight 119.5 kg VITAL SIGNS: Reviewed. BMI noted GENERAL: Well-built, BMI 36.7, laying in bed tired appearing. EYES: Pupils equal. Conjunctiva normal. HEENT: External appearance of nose and ears normal, oral cavity grossly normal. NECK: JVD not raised; masses not palpable. HEART: First and second heart sounds are normal; no edema. LUNGS: Respiratory rate normal; decreased bedside. ABDOMEN: Soft, nontender, liver spleen not palpable, no masses palpable. LYMPHATICS: No lymph nodes palpable in the axilla and neck. PSYCH: Alert and oriented x3; mood and affect normal. NEUROLOGICAL: Cranial nerves grossly intact; no facial asymmetry, power and sensation grossly intact. Results CBC & Chem 7: 11/06/16 06:25 11/06/16 06:25 Labs: White count 11.5, hemoglobin 13.8, potassium 4.2, BUN/creatinine normal Troponin 0.028, 0.167 EKG normal sinus rhythm Assessment and Plan Plan: Assessment: -Unstable angina in a patient with known coronary artery disease with stents with recent cardiac catheterization showing diffuse disease and a positive stress test and a decision to go ahead with medical management -Peripheral arterial disease with prior stents of the legs -Obesity BMI 36.7 Diabetes mellitus type 2 chronically on insulin GERD Hyperlipidemia Essential hypertension with urgency Peptic ulcer disease Primary osteoarthritis of multiple joints bilaterally Plan: Patient is put on IV heparin home medications are resumed cardiology is consulted antianginal medications will be adjusted follow with cardiology.Care was discussed with the patient, questions were answered
[2016-11-06 17:51] LABS: Glucose,Whole Blood 188 mg/dL (75-99)
[2016-11-06] MEDS: INSULIN GLARGINE 100 UNIT/ML 10 ML VIAL SQ SCH (20:22)
[2016-11-06] MEDS: PRAVASTATIN SODIUM 80 MG TAB PO SCH (20:22)
[2016-11-06 21:03] LABS: Glucose,Whole Blood 161 mg/dL (75-99)
[2016-11-07] MEDS: HEPARIN SODIUM,PORCINE/D5W PMX 25,000 UNIT in DEXTROSE/WATER 1 500ML.BAG IV SCH (01:09)
[2016-11-07 02:30] LABS: Mean Platelet Volume 7.9
[2016-11-07 03:00] LABS: Cholesterol 185 mg/dL (<200); HDL Cholesterol 31 mg/dL (40-60); Triglycerides 242 mg/dL (<150)
[2016-11-07 05:49] LABS: Glucose,Whole Blood 176 mg/dL (75-99)
[2016-11-07] MEDS: DIAZEPAM 5 MG TAB PO SCH ×2 (08:32→22:03)
[2016-11-07] MEDS: PANTOPRAZOLE 40 MG TABLET PO SCH (08:32)
[2016-11-07] MEDS: METOPROLOL TARTRATE 50 MG TAB PO SCH ×2 (08:33→21:56)
[2016-11-07] MEDS: amLODIPine 10 MG TAB PO SCH (08:33)
[2016-11-07] MEDS: CLOPIDOGREL 75 MG TAB PO SCH (08:34)
[2016-11-07] MEDS: PREGABALIN 100 MG CAP PO SCH ×2 (08:38→22:03)
[2016-11-07] MEDS: ISOSORBIDE MONONITRATE ER 30 MG TAB.ER.24H PO SCH (08:38)
[2016-11-07] MEDS ORDERED: ASPIRIN 325 MG TAB PO SCH ×2 (09:00)
[2016-11-07] MEDS: INSULIN LISPRO (humaLOG) 300 UNIT/3 ML VIAL SQ SCH ×7 (09:48→21:58)
[2016-11-07] MEDS: ASPIRIN 81 MG CHEW PO SCH (09:54)
[2016-11-07] MEDS: oxyCODONE-APAP 10-325MG 1 EACH TAB PO PRN ×2 (09:54→18:19)
[2016-11-07] MEDS: LISINOPRIL 5 MG TAB PO SCH ×2 (11:04→21:56)
[2016-11-07] MEDS: MULTIVITAMINS, THERA 1 EACH TAB PO SCH (11:05)
[2016-11-07 11:36] LABS: Glucose,Whole Blood 298 mg/dL (75-99)
--- NOTE | 2016-11-07 16:20 | P.PN ---
<Ann Marie Bonilla - Last Filed: 11/07/16 17:38> Progress Note - Text DATE OF SERVICE: 11/07/2016 PRESENTING COMPLAINT: Chest pain INTERVAL HISTORY: This is a 61-year-old patient Dr. Naqvi who had a cardiac catheterization showed diffuse disease no significant stenosis and proceeded with medical management. Patient did have a positive stress test. Patient return to the emergency department with frequent episodes of chest pain including central chest pressure off and radiating to the jaw, shortness of breath, profuse sweating episodes variable in duration. 11/07/2016: Patient lying in bed, appears comfortable yet anxious. Spoke to him about plan of care and what cardiology had to say and he became visibly anxious. States appetite is good, eating between 75 and 100% of his meals, has not really been up in the hallways able to ambulate safely to and from the bathroom, last BM 11/2016. No further episodes of chest pain, pressure, sweating, palpitations. REVIEW OF SYSTEMS: Done for constitutional ,cardiovascular, GI, pulmonary with relevant findings as above. CURRENT MEDICATIONS Norvasc, aspirin, Plavix, Valium, heparin, insulin, Imdur, Lopressor. PHYSICAL EXAM VITAL SIGNS: Temperature 97.9, pulse 75, respiratory rate 18, blood pressure 192/72, oxygen saturation 96% on room air. GENERAL APPEARANCE: Lying in bed, appears anxious. EYES: Pupils equal. Conjunctiva normal. NECK: JVD not raised. Mass not palpable. RESPIRATORY: Respiratory effort normal. Lungs diminished auscultation. CARDIOVASCULAR: First and second sounds normal. Sinus rhythm on the monitor No edema. ABDOMEN: Soft. Liver and spleen not palpable. No tenderness. No mass palpable. PSYCHIATRY: Alert and oriented x3. Mood and affect anxious appearing l. INVESTIGATIONS: LABS: Accu-Cheks noted ASSESSMENT: -Acute non Q wave myocardical infarction in a pattient with known coronary artery disease with stents with recent cardiac catheterization showing diffuse disease and a positive stress test and a decision to go ahead with medical management -Peripheral arterial disease with prior stents of the legs -Obesity BMI 36.7 Diabetes mellitus type 2 chronically on insulin GERD Hyperlipidemia Essential hypertension with urgency Peptic ulcer disease Primary osteoarthritis of multiple joints bilaterally -Anxiety, not otherwise specified. PLAN: We'll await input from cardiology as to plan of care, medical management versus alternatives. We'll continue current medication and treatment and plan of care discussed with patient at the bedside and he is agreeable. [facility] statement: Patient was seen and examined by nurse practitioner Ann Marie Bonilla and all elements of the case discussed with attending Dr. Yanez <Lisandro Yanez - Last Filed: 11/07/16 18:40> Progress Note - Text Attending note. Date of service-11/07/2016 This patient was seen and examined by me today. I reviewed the note of my nurse practitioner, Ms. Bonilla. Discussed with her, additional findings as below. Patient has ruled in for an acute AL. On IV heparin. No further chest pain. On examination: Lungs decreased breath sounds, cardiovascular first seconds are normal Investigations: Troponin gone up to 0.833 LDL is 106 Assessment and plan: Acute non-Q-wave myocardial infarctions in a patient with known coronary artery disease and at least recent cardiac catheterization IV heparin monitoring. Await further input from cardiology options may be limited. Care was discussed with the patient Hypertension urgency-will increase Lopressor to 100 mg twice a day
[2016-11-07 16:59] LABS: Glucose,Whole Blood 151 mg/dL (75-99)
[2016-11-07 20:55] LABS: Glucose,Whole Blood 92 mg/dL (75-99)
[2016-11-07] MEDS: INSULIN GLARGINE 100 UNIT/ML 10 ML VIAL SQ SCH (21:57)
[2016-11-07] MEDS: PRAVASTATIN SODIUM 80 MG TAB PO SCH (21:57)
[2016-11-08] MEDS ORDERED: oxyCODONE-APAP 10-325MG 1 EACH TAB ONE (02:00)
[2016-11-08] MEDS: HEPARIN SODIUM,PORCINE/D5W PMX 25,000 UNIT in DEXTROSE/WATER 1 500ML.BAG IV SCH (03:05)
[2016-11-08 06:15] LABS: Glucose,Whole Blood 225 mg/dL (75-99)
[2016-11-08] MEDS: INSULIN LISPRO (humaLOG) 300 UNIT/3 ML VIAL SQ SCH ×8 (06:28→22:03)
[2016-11-08] MEDS: PANTOPRAZOLE 40 MG TABLET PO SCH (06:28)
[2016-11-08 06:43] LABS: Mean Platelet Volume 7.8
[2016-11-08 07:01] LABS: Anion Gap 11 mmol/L; Blood Urea Nitrogen 15 mg/dL (9-20); Calcium 9.3 mg/dL (8.4-10.2); Carbon Dioxide 24 mmol/L (22-30); Chloride 104 mmol/L (98-107); Glucose 233 mg/dL (74-99); Non-African American GFR(MDRD) >60 (>60 ml/min/1.73 sqM); Potassium 4.4 mmol/L (3.5-5.1); Sodium 139 mmol/L (137-145)
[2016-11-08 09:38] LABS: Glucose,Whole Blood 179 mg/dL (75-99)
[2016-11-08] MEDS: CLOPIDOGREL 75 MG TAB PO SCH (09:51)
[2016-11-08] MEDS: amLODIPine 10 MG TAB PO SCH (09:51)
[2016-11-08] MEDS: ASPIRIN 81 MG CHEW PO SCH (09:51)
[2016-11-08] MEDS: METOPROLOL TARTRATE 50 MG TAB PO SCH ×2 (09:52→20:15)
[2016-11-08] MEDS: LISINOPRIL 5 MG TAB PO SCH ×2 (09:52→20:15)
[2016-11-08] MEDS: DIAZEPAM 5 MG TAB PO SCH ×2 (09:52→20:14)
[2016-11-08] MEDS: ISOSORBIDE MONONITRATE ER 30 MG TAB.ER.24H PO SCH (09:52)
[2016-11-08] MEDS: oxyCODONE-APAP 10-325MG 1 EACH TAB PO PRN ×2 (09:53→20:21)
[2016-11-08] MEDS: PREGABALIN 100 MG CAP PO SCH ×2 (09:53→20:21)
[2016-11-08] MEDS ORDERED: ALPRAZolam 0.5 MG TAB PO PRN (10:32)
[2016-11-08] MEDS ORDERED: ALPRAZolam 0.25 MG TAB PO PRN (10:32)
[2016-11-08] MEDS ORDERED: NITROGLYCERIN SL TABS 0.4 MG TAB SUBLINGUAL PRN ×3 (10:32→15:02)
[2016-11-08] MEDS ORDERED: ATORVASTATIN 80 MG TAB PO STA (10:32)
[2016-11-08] MEDS ORDERED: ASPIRIN 325 MG TAB PO STA (10:32)
[2016-11-08] MEDS ORDERED: SODIUM CHLORIDE 0.9% 1,000 ML in EMPTY BAG 1 BAG IV ONE (10:32)
[2016-11-08 11:41] LABS: Glucose,Whole Blood 161 mg/dL (75-99)
[2016-11-08] MEDS: MULTIVITAMINS, THERA 1 EACH TAB PO SCH (12:25)
[2016-11-08] MEDS ORDERED: IV FLUID CONTINUATION 1,000 ML IV ONE (13:40)
[2016-11-08] MEDS ORDERED: MIDAZOLAM 2 MG/2 ML VIAL IV ONE (13:56)
[2016-11-08] MEDS ORDERED: diphenhydrAMINE 50 MG/ML 1 ML VIAL IVP ONE (14:01)
[2016-11-08] MEDS ORDERED: LIDOCAINE 2% INJ 20 MG/ML SQ ONE (14:03)
[2016-11-08] MEDS: VERAPAMIL SYRINGE (5 MG/10 ML) INTRAARTER ONE ×2 (14:06→14:46)
[2016-11-08] MEDS ORDERED: HEPARIN SODIUM 1,000 UN/ML (10ML VL) IV ONE (14:11)
[2016-11-08] MEDS: NITROGLYCERIN 1000MCG/10ML SYRINGE INTRACORON ONE ×2 (14:28→14:43)
[2016-11-08] MEDS ORDERED: BIVALIRUDIN BOLUS 250 MG/50 ML IV ONE (14:30)
[2016-11-08] MEDS ORDERED: BIVALIRUDIN 250 MG in SODIUM CHLORIDE 0.9% 50 ML IV ONE (14:30)
[2016-11-08] MEDS ORDERED: IOHEXOL 350 MG/ML 100 ML BOTTLE INJ ONE (14:48)
[2016-11-08] MEDS ORDERED: CLOPIDOGREL 75 MG TAB PO ONE (14:49)
[2016-11-08] MEDS ORDERED: MAG HYDROX/AL HYDROX/SIMETH 30 ML CUP PO PRN (14:58)
[2016-11-08] MEDS ORDERED: RX INFO: IV CONTRAST WAS GIVEN 1 EACH MISC MISCELLANE PRN (14:58)
[2016-11-08] MEDS ORDERED: ZOLPIDEM 5 MG TAB PO PRN (14:58)
[2016-11-08] MEDS ORDERED: ATROPINE SULFATE 0.1 MG/ML 10ML SYRINGE IV PRN (14:58)
--- NOTE | 2016-11-08 16:19 | PN ---
Mr. Pedroza is a 61-year-old male with known history of coronary artery disease, history of diabetes, hypertension, hyperlipidemia, who presented with symptoms of chest discomfort. He underwent cardiac catheterization recently by Dr. Marycruz Martinez and was found to have mild to moderate triple-vessel coronary artery disease. He has no further symptoms of chest nash at this time. He denies any dizziness or palpitation. He denies any nausea. His troponin was mildly elevated. He continues to be on aspirin once a day, Plavix 75 mg daily, IV heparin, insulin, isosorbide mononitrate 30 mg daily, metoprolol tartrate 50 mg twice a day, pravastatin 80 mg daily and Lyrica. PHYSICAL EXAMINATION: Blood pressure is running in the 160s and 170s with a heart rate in the 70s. LUNGS: Clear. HEART: Regular rate and rhythm. S1, S2. No S3. No rub. ABDOMEN: Soft, non-tender. EXTREMITIES: No edema. Lab data revealed a troponin of 0.028, 0.176 and 0.833. IMPRESSION: 1. Elevation of troponin with symptoms of chest pain consistent with non-ST- elevation myocardial infarction in a patient with a history of mild to moderate cardiac disease by cardiac catheterization recently. 2. History of stenting. 3. Hypertension. 4. Hyperlipidemia. 5. Diabetes mellitus. RECOMMENDATIONS: I will add Lisinopril to his regimen to optimize his blood pressure control. Patient is pain-free at this time. He will continue on IV heparin. His images will be further evaluated by Dr. Ashleigh Martinez tomorrow to see if repeat cardiac catheterization is warranted. I have discussed those findings with the patient. Depending on his progress, further recommendations will be made. SHAWN
--- NOTE | 2016-11-08 16:38 | P.PN ---
<Ann Marie Bonilla - Last Filed: 11/08/16 16:28> Progress Note - Text DATE OF SERVICE: 11/08/2016 PRESENTING COMPLAINT: Chest pain INTERVAL HISTORY: This is a 61-year-old patient Dr. Naqvi who had a cardiac catheterization showed diffuse disease no significant stenosis and proceeded with medical management. Patient did have a positive stress test. Patient return to the emergency department with frequent episodes of chest pain including central chest pressure off and radiating to the jaw, shortness of breath, profuse sweating episodes variable in duration. 11/06/2016. No further episodes of chest pain, pressure, sweating, palpitations. 11/07/2016: Patient lying in bed, appears comfortable yet anxious. Spoke to him about plan of care and what cardiology had to say and he became visibly anxious. States appetite is good, eating between 75 and 100% of his meals, has not really been up in the hallways able to ambulate safely to and from the bathroom, last BM 12/2016. 11/08/2016: Patient sitting up at the bedside, being prepared for catheterization this morning. States he felt as though he was going to have an episode of chest pain this morning but it dissipated on its own. No nausea vomiting, sweating, palpitations. REVIEW OF SYSTEMS: Done for constitutional ,cardiovascular, GI, pulmonary with relevant findings as above. CURRENT MEDICATIONS Norvasc, aspirin, Plavix, Valium, heparin, insulin, Imdur, Lopressor. PHYSICAL EXAM VITAL SIGNS: Temperature 97.4, pulse 69, respiratory rate 18, blood pressure 151/69, oxygen saturation 98% on room air. GENERAL APPEARANCE: Sitting up on the bed, appears anxious. EYES: Pupils equal. Conjunctiva normal. NECK: JVD not raised. Mass not palpable. RESPIRATORY: Respiratory effort normal. Lungs diminished auscultation. CARDIOVASCULAR: First and second sounds normal. Sinus rhythm on the monitor No edema. ABDOMEN: Soft. Liver and spleen not palpable. No tenderness. No mass palpable. Currently nothing by mouth . Last BM 11/07/2016 PSYCHIATRY: Alert and oriented x3. Mood and affect anxious appearing . INVESTIGATIONS: LABS: BMP unremarkable, Accu-Cheks 161. ASSESSMENT: -Acute non ST elevation myocardical infarction in a pattient with known coronary artery disease with stents with recent cardiac catheterization showing diffuse disease and a positive stress test and a decision to go ahead with medical management -Peripheral arterial disease with prior stents of the legs -Obesity BMI 36.7 -Diabetes mellitus type 2 chronically on insulin -GERD -Hyperlipidemia -Essential hypertension with urgency -Peptic ulcer disease -Primary osteoarthritis of multiple joints bilaterally -Anxiety, not otherwise specified. PLAN: Patient scheduled for cardiac catheterization, with DR Martinez. Lisinopril added to his medication regimen to optimize blood pressure. We'll continue to monitor closely and with current medication treatment plan, plan of care discussed with patient, questions answered. PREPRESS PROOFER statement: Patient was seen and examined by nurse practitioner Ann Marie Bonilla and all elements of the case discussed with attending Dr. Yanez <Lisandro Yanez - Last Filed: 11/08/16 17:56> Progress Note - Text Attending note. Date of service-11/08/2016 This patient was seen and examined by me today. I reviewed the note of my nurse practitioner, Ms. Bonilla. Discussed with her, additional findings as below. Patient with known coronary artery disease, admitted acute SD, previously not felt to be candidate for intervention. Being taken to cardiac catheterization by Dr. Parker today. No further episodes of chest pain On examination: Lungs-clear to auscultation, cardiovascular first seconds are normal Investigations: Troponin 0.266 Assessment and plan: Acute non-Q wave myocardial infarction-pending cardiac catheterization today. Care was discussed with the patient, questions were answered
[2016-11-08] MEDS: SODIUM CHLORIDE 0.9% 1,000 ML IV SCH (16:44)
[2016-11-08 16:54] LABS: Glucose,Whole Blood 110 mg/dL (75-99)
[2016-11-08] MEDS: PRAVASTATIN SODIUM 80 MG TAB PO SCH (20:16)
[2016-11-08] MEDS: RANOLAZINE 500 MG TAB.ER.12H PO SCH (20:17)
[2016-11-08 20:30] VITALS: RESP 18
[2016-11-08 20:58] LABS: Glucose,Whole Blood 206 mg/dL (75-99)
[2016-11-08] MEDS: INSULIN GLARGINE 100 UNIT/ML 10 ML VIAL SQ SCH (22:02)
[2016-11-09] MEDS: oxyCODONE-APAP 10-325MG 1 EACH TAB PO PRN ×2 (03:47→13:03)
[2016-11-09] MEDS: SODIUM CHLORIDE 0.9% 1,000 ML IV SCH (03:47)
[2016-11-09 05:55] LABS: Glucose,Whole Blood 203 mg/dL (75-99)
[2016-11-09 06:08] LABS: Basophils % (A) 0 %; CH 28.1; CHCM 33.9; Eosinophils # (A) 0.1 k/uL (0-0.7); Eosinophils % (A) 1 %; HCT 39.5 % (39.0-53.0); HDW 2.79; HGB 13.6 gm/dL (13.0-17.5); Luc # (Auto) 0.14; Luc % (Auto) 1; Lymphocytes # (A) 1.5 k/uL (1.0-4.8); Lymphocytes % (A) 14 %; MCH 28.8 pg (25.0-35.0); MCHC 34.5 g/dL (31.0-37.0); MCV 83.4 fL (80.0-100.0); Mean Platelet Volume 7.8; Monocytes # (A) 0.6 k/uL (0-1.0); Monocytes % (A) 5 %; Neutrophils # (A) 8.4 k/uL (1.3-7.7); Neutrophils % (A) 78 %; RBC 4.73 m/uL (4.30-5.90); WBC 10.8 k/uL (3.8-10.6); WBC (Perox) 10.51
[2016-11-09 06:10] LABS: Anion Gap 10 mmol/L; Blood Urea Nitrogen 12 mg/dL (9-20); Calcium 9.1 mg/dL (8.4-10.2); Carbon Dioxide 25 mmol/L (22-30); Chloride 103 mmol/L (98-107); Glucose 209 mg/dL (74-99); Non-African American GFR(MDRD) >60 (>60 ml/min/1.73 sqM); Potassium 4.3 mmol/L (3.5-5.1); Sodium 138 mmol/L (137-145)
[2016-11-09] MEDS: PANTOPRAZOLE 40 MG TABLET PO SCH (07:04)
[2016-11-09] MEDS: INSULIN LISPRO (humaLOG) 300 UNIT/3 ML VIAL SQ SCH ×4 (07:05→11:37)
[2016-11-09] MEDS ORDERED: ASPIRIN 81 MG CHEW PO SCH ×2 (09:00)
[2016-11-09] MEDS ORDERED: MULTIVITAMINS, THERA 1 EACH TAB PO SCH (09:00)
[2016-11-09] MEDS: RANOLAZINE 500 MG TAB.ER.12H PO SCH (09:08)
[2016-11-09] MEDS: CLOPIDOGREL 75 MG TAB PO SCH (09:08)
[2016-11-09] MEDS: amLODIPine 10 MG TAB PO SCH (09:09)
[2016-11-09] MEDS: METOPROLOL TARTRATE 50 MG TAB PO SCH (09:09)
[2016-11-09] MEDS: ISOSORBIDE MONONITRATE ER 30 MG TAB.ER.24H PO SCH (09:09)
[2016-11-09] MEDS: LISINOPRIL 5 MG TAB PO SCH (09:09)
[2016-11-09] MEDS: ASPIRIN 81 MG CHEW PO SCH (09:09)
[2016-11-09] MEDS: DIAZEPAM 5 MG TAB PO SCH (09:14)
[2016-11-09] MEDS: PREGABALIN 100 MG CAP PO SCH (09:14)
[2016-11-09 11:29] LABS: Glucose,Whole Blood 199 mg/dL (75-99)
[2016-11-09] MEDS: MULTIVITAMINS, THERA 1 EACH TAB PO SCH (11:36)
--- NOTE | 2016-11-09 13:46 | PCN ---
CARDIAC CATHETERIZATION DATE OF SERVICE: 11/08/2016 PROCEDURE: Left heart catheterization and coronary angiography. PERFORMED BY: Dr. Ashleigh Martinez. CLINICAL INFORMATION: Mr. Jeremiah Pedroza is a 61-year-old gentleman with history of type 1 diabetes, hypertension, hyperlipidemia, previous multivessel PCI who was actually seen by me in September of this year and had a cardiac cath, which revealed a diffuse disease and I advised medical therapy. He comes back into the hospital with chest pain strongly suggestive of angina, has a troponin profile suggestive of non-ST elevation MD without EKG changes. Given his recurrent admission he was advised hospitalization with the understanding he has diffuse disease, but I would perform intervention fo the culprit vessel if I find one. PROCEDURE NOTE: Although patient has a suboptimal Yovany test, his femoral pulses were very poor and so I recommended a coronary angiography from the right radial approach. Using a micropuncture needle technique, I gained access into the right radial artery and a 6-Greenlandic introducer was placed. I performed a right coronary angiography using a standard right Luis Angel catheter and then used for the left, a 3.5 curved Luis Angel catheter. I then proceeded to perform intervention in the same setting. Using the right catheter I checked LV pressures but LV gram was not performed. CARDIAC CATHETERIZATION FINDINGS: The left ventricular end-diastolic pressure was 12 mmHg and there was no gradient across the aortic valve. CORONARY ANGIOGRAPHY FINDINGS: Right Coronary Artery: This is a very dominant vessel that has previous PCI performed in the mid portion. It bifurcates distally into PDA and PLV. The LAD has no more than 30 to 40% narrowing, but the PDA is diffusely diseased , unchanged from the previous appearance of September of this year. Left Main Coronary Artery: This is an extremely small vessel that immediate bifurcates and almost two separate ostia are noted. No significant disease in the small left main. Left Anterior Descending Coronary Artery: This vessel has a moderate calcification, diffuse areas of irregularities and mid-lesion of about 50 to 60 % is noted unchanged. Diagonal ulcer has diffuse disease and calcification. LAD is diffusely diseased but no focal critical lesion is noted. It gives off septal and diagonal branches that runs all the way to the apex with diffuse disease in it. Left Posterior Circumflex Coronary Artery: Technically a nondominant vessel that gives off a good size obtuse marginal that was previously stented. There was a groove branch that was jailed with a stent. Well beyond the stented segment in a very tortuous area there is an eccentric 95% stenosis, which I believe is the culprit lesion and this is located just before the vessel gives off a secondary branch and then runs laterally in a very tortuous fashion. This may be the culprit lesion. LV gram was not performed. FINAL IMPRESSION: This patient has a 95% mid-circumflex lesion involving a non-dominant circumflex with a fair amount of myocardium being supplied by it. LAD has diffuse lesion worsening in the range of 40 to 50% in multiple areas. RCA has 30 to 40% narrowing and diffuse PDA disease. RECOMMENDATIONS: I recommend intervention of the circumflex and proceeded to perform this in the same setting. SHAWN
--- NOTE | 2016-11-09 13:56 | PCN ---
PROCEDURE: PTCA and stenting of mid circumflex. PROCEDURE NOTE: Existing 6-Spanish introducer in the right radial artery was used to perform procedure. I used JL4 guide catheter to cannulate the left coronary artery. BMW wire was used to cross the lesion. A 2.25 caliber 12 mm long trek balloon was used to predilated the lesion. A 2.25 caliber 12 mm Xience stent was deployed at 30 atmospheres. The patient had chest pain, but no EKG changes. Excellent angiographic result was achieved. Beyond the stented segment there were multiple areas of diffuse disease noted, but remarkably good angiographic appearance and flow was noted. The sheath was then taken out and TR band applied as per protocol and patient sent to the room in stable condition. He received moderate conscious sedation for about 45 minutes. Moderate conscious sedation was provided for about 45 minutes with combination of Benadryl and Versed. He received Angiomax bolus and infusion as per protocol. He also received additional of 150 mg of Plavix and he was already on 75 mg daily. Excellent angiographic result was achieved, but distal to the stented segment there is diffuse disease in the circumflex noted. Results were discussed with the patient and family. He will be discharged tomorrow if stable. SHAWN
--- NOTE | 2016-11-09 14:02 | MISC ---
November 08, [address] Naqvi: Thank you for the opportunity to participate in the care of Mr. Jeremiah Pedroza. Please find enclosed my PTCA report for your records. Tis gentleman repeat hospitalizations with chest pain, mild troponin elevation and there was a 95% lesion in the circumflex and a diffusely diseased segment. Beyond this area there are multiple areas of narrowing as well. I performed stenting of the mid- circumflex with a good result and hopefully will do well without symptoms and I expect he will be discharged tomorrow. The previously dilated RCA and previously dilated circumflex are patent. Thank you for referral and please call for questions. With kindest regards sincerely yours, SHAWN
[2016-11-09 14:56] VITALS: BP 143/63; PULSE 93; TEMP 98.6
--- NOTE | 2016-11-09 19:47 | P.DS ---
<Ann Marie Bonilla - Last Filed: 11/09/16 19:34> Providers Date of admission: 11/07/16 11:08 Expected date of discharge: 11/09/16 Attending physician: Lisandro Yanez Consults: 11/06/16 06:44 Consult Physician Urgent Consulting Provider: [facility] Guillaume Consult Reason/Comments: cp Do you want consulting provider notified?: Yes 11/08/16 14:58 Consult Physician Routine Consulting Provider: [facility] Consult Reason/Comments: Post Interventional patient Do you want consulting provider notified?: Already Contacted Primary care physician: [facility] Course: FINAL DIAGNOSES: -Acute non Q wave myocardical infarction in a pattient with known coronary artery disease with stents with recent cardiac catheterization showing diffuse disease and a positive stress test -Peripheral arterial disease with prior stents of the legs -Obesity BMI 36.7 -Diabetes mellitus type 2 chronically on insulin -GERD -Hyperlipidemia -Essential hypertension with urgency -Peptic ulcer disease -Primary osteoarthritis of multiple joints bilaterally -Anxiety, not otherwise specified. HOSPTIAL COURSE: This a 61-year-old male who had a previous cardiac catheterization showing diffuse diseaseto significant stenosis and proceeded with medical management. Patient return to the emergency department with an episode of chest pain including central chest pressure radiating to the jaw shortness of breath profuse sweating episodes were variable in duration. Patient was found to have a non-Q wave myocardial infarction. Cardiology was consulted and patient was taken to the cardiac catheterization lab. Stent placed to the circumflex. Postoperative course was uneventful, patient tolerated his diet ambulatory in the hallways, moved his bowels, no further chest pain. Patient is stable for discharge. PHYSICAL EXAM: CARDIOVASCULAR: First and second sounds noted no edema noted to lower extremities. RESPIRATORY: Respiratory effort normal, lung sounds diminished bilaterally GI: Abdomen soft nontender liver and spleen not palpable MUSKULOSKELETAL: Right wrist was operative site, covered with dry dressing no swelling or ecchymosis noted Patient was seen and examined by nurse practitioner Ann Marie Bonilla in all elements of the case discussed with attending Dr. Yanez DISOPSITION: Patient will be discharged home to the care of his family. Pertinent Studies: CARDIAC CATHETERIZATION: 95% mid circumflex lesion, status post stent placement to circumflex. Patient Condition at Discharge: Stable Plan - Discharge Summary New Discharge Prescriptions: New Aspirin 81 mg PO DAILY Isosorbide Mononitrate ER [Imdur] 30 mg PO DAILY tab Lisinopril [Zestril] 5 mg PO BID tab Metoprolol Tartrate [Lopressor] 75 mg PO BID tab Ranolazine [Ranexa] 500 mg PO Q12HR tab Atorvastatin [Lipitor] 80 mg PO HS #30 tab Continue Nitroglycerin Sl Tabs [Nitrostat] 0.4 mg SUBLINGUAL Q5M PRN PRN Reason: Chest Pain Clopidogrel [Plavix] 75 mg PO DAILY oxyCODONE-APAP 10-325MG [Percocet 10-325 mg] 1 tab PO Q8H PRN PRN Reason: Pain Pregabalin [Lyrica] 100 mg PO BID Omeprazole 20 mg PO DAILY Diazepam [Valium] 10 mg PO BID Insulin Lispro [humaLOG Kwikpen] 12 unit SQ BID Aspirin 81 mg PO DAILY #30 chew Insulin Glargine,Hum.rec.anlog [[place] Solostsade] 40 units SQ HS Insulin Lispro [humaLOG Kwikpen] 15 unit SQ QAM amLODIPine [Norvasc] 10 mg PO DAILY #30 tab Multivitamins, Thera [Multivitamin (formulary)] 1 tab PO DAILY Discontinued Metoprolol Tartrate [Lopressor] 25 mg PO BID Pravastatin Sodium [Pravachol] 80 mg PO HS Discharge Medication List Clopidogrel [Plavix] 75 mg PO DAILY 01/10/14 [History] Nitroglycerin Sl Tabs [Nitrostat] 0.4 mg SUBLINGUAL Q5M PRN 01/10/14 [History] Pregabalin [Lyrica] 100 mg PO BID 06/08/16 [History] oxyCODONE-APAP 10-325MG [Percocet 10-325 mg] 1 tab PO Q8H PRN 06/08/16 [History] Diazepam [Valium] 10 mg PO BID 08/06/16 [History] Insulin Lispro [humaLOG Kwikpen] 12 unit SQ BID 08/06/16 [History] Omeprazole 20 mg PO DAILY 08/06/16 [History] Aspirin 81 mg PO DAILY #30 chew 08/08/16 [Rx] Insulin Glargine,Hum.rec.anlog [[place] Solostar] 40 units SQ HS 10/07/16 [ History] Insulin Lispro [humaLOG Kwikpen] 15 unit SQ QAM 10/07/16 [History] amLODIPine [Norvasc] 10 mg PO DAILY #30 tab 10/10/16 [Rx] Multivitamins, Thera [Multivitamin (formulary)] 1 tab PO DAILY 11/06/16 [History ] Aspirin 81 mg PO DAILY 11/09/16 [Rx] Atorvastatin [Lipitor] 80 mg PO HS #30 tab 11/09/16 [Rx] Isosorbide Mononitrate ER [Imdur] 30 mg PO DAILY tab 11/09/16 [Rx] Lisinopril [Zestril] 5 mg PO BID tab 11/09/16 [Rx] Metoprolol Tartrate [Lopressor] 75 mg PO BID tab 11/09/16 [Rx] Ranolazine [Ranexa] 500 mg PO Q12HR tab 11/09/16 [Rx] Follow up Appointment(s)/Referral(s): Duglas Martinez MD [STAFF PHYSICIAN] - 11/16/16 4:45 pm Tr Naqvi DO [Primary Care Provider] - 11/23/16 2:20 pm Patient Instructions/Handouts: Heart Catheterization (DC) Activity/Diet/Wound Care/Special Instructions: consistent carb diet Discharge Disposition: HOME SELF-CARE <Lisandro Yanez - Last Filed: 11/10/16 17:37> Hospital Course: Attending note. Date of service-11/09/2016 This patient was seen and examined by me . I reviewed the note of my nurse practitioner, Ms. Bonilla. Discussed with her, additional findings as below. this patient was admitted with acute non-Q-wave [place]. Patient from recent cardiac catheterization known to have diffuse disease. repeat cardiac catheterization with Dr. PRASAD walter showed diffuse disease, he decided to put a stent in circumflex, patient still remains to have diffuse disease please refer to his notes for more details. At the time of discharge patient up and about no chest pain or shortness of breath On examination: lungs-decreased breath sounds, cardiovascular first seconds are normal Investigations: Assessment and plan: acute non-Q-wave microinfarction, diffuse disease on cardiac catheterization, patient now has a stent in the circumflex artery. More details in the cardiology notes
[2016-11-09] MEDS ORDERED: ATORVASTATIN 80 MG TAB PO SCH (21:00)
--- NOTE | 2016-11-09 22:51 | PN ---
Mr. Pedroza is doing very well today. His right radial site is clean and dry with excellent pulse. His EKG and labs are good. Vital signs are stable. S1, S2 heard normally. Short systolic murmur noted. Lungs are clear. Abdomen and lower extremity exam unchanged. Patient can be discharged today. Gave him all instructions, including the fact that he should be on Lipitor 80 mg daily instead of pravastatin 20 mg daily. He can be discharged today and he will see me in the office in one week. Discharge instructions regarding activity, diet, medications were given. MTDD
== END 2016-11-09 15:40 | disposition home or self-care (01) | DRG 247 ==
LOC: EC 06:19 → 3OBS 06:44 → 6SEL 14:31 → OBSVTOIN 11-07 11:08
PROVIDERS: ADMIT Hospitalist; ATTEND Hospitalist
PROC: B2111ZZ Fluoroscopy of Multiple Coronary Arteries using Low Osmolar Contrast (ICD-10-PCS; 2016-11-08)
PROC: 027034Z Dilation of Coronary Artery, One Artery with Drug-eluting Intraluminal Device, Percutaneous Approach (ICD-10-PCS; principal; 2016-11-08 13:40)
PROC: 4A023N7 Measurement of Cardiac Sampling and Pressure, Left Heart, Percutaneous Approach (ICD-10-PCS; 2016-11-08 13:40)
DX: I21.4 Non-ST elevation (NSTEMI) myocardial infarction (principal); E10.51 Type 1 diabetes mellitus with diabetic peripheral angiopathy without gangrene; I25.110 Atherosclerotic heart disease of native coronary artery with unstable angina pectoris; I10 Essential (primary) hypertension; E78.5 Hyperlipidemia, unspecified; F41.9 Anxiety disorder, unspecified; K27.9 Peptic ulcer, site unspecified, unspecified as acute or chronic, without hemorrhage or perforation; K21.9 Gastro-esophageal reflux disease without esophagitis; E66.9 Obesity, unspecified; Z68.36 Body mass index [BMI] 36.0-36.9, adult; Z95.828 Presence of other vascular implants and grafts; Z95.5 Presence of coronary angioplasty implant and graft; Z87.820 Personal history of traumatic brain injury; Z87.891 Personal history of nicotine dependence; Z86.14 Personal history of Methicillin resistant Staphylococcus aureus infection; M19.91 Primary osteoarthritis, unspecified site; Z79.82 Long term (current) use of aspirin; Z79.02 Long term (current) use of antithrombotics/antiplatelets; Z79.4 Long term (current) use of insulin; Z79.899 Other long term (current) drug therapy; Z88.1 Allergy status to other antibiotic agents
CPT/HCPCS: 36415; 71020; 80048; 80053; 80061; 82550; 82553; 83690; 83735; 83880; 84484; 85025; 85049; 85610; 85730; 93005; 93458; 94760; 96365; 96375; 96376; 99291

== ENCOUNTER → 2016-12-08 | Outpatient (CLI) | payer MEDICARE, OTHER ==
--- NOTE | 2016-12-08 16:44 | MR ---
EXAMINATION TYPE: MR lumbar spine wo con DATE OF EXAM: 12/08/2016 COMPARISON: Prior lumbar MRI 02/28/2015 HISTORY: Low back pain...Follow up from previous MRI on PACS TECHNIQUE: Multiplanar, multisequence images of the lumbar spine were acquired. L1-L2: Loss of disc signal is only mild.. No herniation, protrusion or disc bulging. No canal steno sis is present. Foramina are patent bilaterally. L2-L3: Stable, only a minimal posterior broad-based disc bulge causing slight anterior mass effect on the thecal sac. No significant central stenosis or foraminal encroachment. L3-L4: Broad-based posterior disc bulge shows a similar appearance causing minimal anterior mass effe ct on the thecal sac, no significant central stenosis or foraminal encroachment. L4-L5: Broad-based posterior disc bulge shows a similar appearance causing anterior mass effect on th e thecal sac, no significant central stenosis or foraminal encroachment. L5-S1: Broad-based posterior disc bulge causes mild anterior mass effect on the thecal sac, no signif icant central stenosis. Neuroforamina. Stable. Lumbar segments are intact. No paraspinal masses are identified. Conus medullaris has a normal appe arance. Lumbar vertebral bodies show stable height, alignment, and bone marrow signal. Mild multileve l spondylosis. IMPRESSION: Essentially stable degenerative disc disease.
== END | disposition home or self-care (01) ==
LOC: RADMRIMAIN 15:26
PROVIDERS: ATTEND Psychiatry & Neurology Pain Medicine
DX: M51.36 Other intervertebral disc degeneration, lumbar region (principal); Z88.1 Allergy status to other antibiotic agents
CPT/HCPCS: 72148

== ENCOUNTER → 2017-09-14 | Outpatient (CLI) | payer MEDICARE, OTHER ==
[2017-09-14 18:03] LABS: Blood Urea Nitrogen 31 mg/dL (9-20)
== END | disposition home or self-care (01) ==
LOC: LABWHC1 15:57
PROVIDERS: ATTEND Psychiatry & Neurology Pain Medicine
DX: Z01.812 Encounter for preprocedural laboratory examination (principal)
CPT/HCPCS: 36415; 82565; 84520

== ENCOUNTER 2017-09-25 17:17 | Inpatient (IN) | payer MEDICARE, OTHER ==
[2017-09-25] MEDS ORDERED: IPRATROPIUM-ALBUTEROL 3 ML NEB INHALATION STA (17:25)
--- NOTE | 2017-09-25 17:30 | ED ---
General Adult HPI - General Stated complaint: KRIS Time Seen by Provider: 09/25/17 17:21 Source: patient, EMS, RN notes reviewed, old records reviewed - History of Present Illness Initial comments: 62-year-old male with chief complaint of dyspnea. Patient was transported by EMS. He states that he's had a cough which is chronic for the past one year. He does have history of COPD, CHF, and CAD. According to the patient he had a heart attack approximately one week ago and was seen at [facility]. He states he is scheduled for heart catheterization. Denies any significant chest pain. He does have some chest tightness worse with cough. His cough is productive of white sputum. Denies fever or chills. He does complain of some lower extremity swelling. He has history of a non-healing sacral decubitus ulcer and history of infected left great toe. He is currently on Augmentin for this left foot infection. Patient takes Plavix and Xarelto. EMS gave 2 doorknobs and 325 mg of aspirin prior to arrival. - Related Data Home Medications Medication Instructions Recorded Confirmed Clopidogrel [Plavix] 75 mg PO DAILY 01/10/14 09/20/17 Bisacodyl [Dulcolax] 10 mg RECTAL DAILY PRN 04/05/17 09/20/17 Ferrous Sulfate [Iron (65 MG 325 mg PO DAILY 04/05/17 09/20/17 Elemental)] Insulin Glargine [Lantus] 28 unit SQ BID 04/05/17 09/20/17 Melatonin 1 mg PO HS 04/05/17 09/20/17 ALPRAZolam [Xanax] 0.25 mg PO HS PRN 09/19/17 09/20/17 Albuterol Nebulized [Ventolin 2.5 mg INHALATION QID 09/19/17 09/20/17 Nebulized] Aspirin [Adult Low Dose Aspirin EC] 81 mg PO DAILY 09/19/17 09/20/17 Atorvastatin Calcium [Lipitor] 40 mg PO HS 09/19/17 09/20/17 Bacitracin Oint 1 applic TOPICAL Q12HR 09/19/17 09/20/17 Cholecalciferol [Vitamin D3] 3,000 unit PO DAILY 09/19/17 09/20/17 DULoxetine HCL [Cymbalta] 60 mg PO DAILY 09/19/17 09/20/17 Famotidine [Pepcid] 20 mg PO DAILY 09/19/17 09/20/17 Furosemide [Lasix] 40 mg PO DAILY 09/19/17 09/20/17 Insulin Aspart Protam & Aspart 12 unit SQ 1200,1700 09/19/17 09/20/17 [NovoLOG MIX 70-30 Flexpen] Insulin Aspart Protam & Aspart 15 unit SQ QAM 09/19/17 09/20/17 [NovoLOG MIX 70-30 Flexpen] Insulin Glargine,Hum.rec.anlog 28 units SQ BID 09/19/17 09/20/17 [Toujeo Solostar] Isosorbide Mononitrate ER [Imdur] 30 mg PO DAILY 09/19/17 09/20/17 L. Rhamnosus GG/Inulin [Culturelle 1 each PO DAILY 09/19/17 09/20/17 Chewable Tablet] Loratadine [Claritin] 10 mg PO DAILY 09/19/17 09/20/17 Losartan [Cozaar] 25 mg PO DAILY 09/19/17 09/20/17 Metoprolol Tartrate [Lopressor] 50 mg PO BID 09/19/17 09/20/17 Pantoprazole Sodium 40 mg PO DAILY 09/19/17 09/20/17 Pregabalin [Lyrica] 150 mg PO BID 09/19/17 09/20/17 Prostat 1 cap PO DAILY 09/19/17 09/20/17 Rivaroxaban [Xarelto] 20 mg PO DAILY 09/19/17 09/20/17 Thera M 1 tab PO DAILY 09/19/17 09/20/17 Allergies Allergy/AdvReac Type Severity Reaction Status Date / Time cephalexin monohydrate AdvReac Nausea & Verified 09/25/17 17:20 [From Keflex] Vomiting & Diarrhea Review of Systems ROS Statement: Those systems with pertinent positive or pertinent negative responses have been documented in the HPI. ROS Other: All systems not noted in ROS Statement are negative. Past Medical History Past Medical History: Coronary Artery Disease (CAD), COPD, CVA/TIA, Diabetes Mellitus, Deep Vein Thrombosis (DVT), GERD/Reflux, Hyperlipidemia, Hypertension , Myocardial Infarction ([place]), Osteoarthritis (OA), Pneumonia, Pulmonary Embolus (PE), Skin Disorder Additional Past Medical History / Comment(s): May 2013 and hit head and had a brain bleed-from possible TIA, c-diff, myopathy, tia/cva- no effects, hx ulcer, psoriasis, Last Myocardial Infarction Date:: 08/2017 History of Any Multi-Drug Resistant Organisms: MRSA Date of last positivie culture/infection: 01/31/08 MDRO Source:: Unknown Past Surgical History: Heart Catheterization With Stent, Orthopedic Surgery, Tonsillectomy Additional Past Surgical History / Comment(s): bunionectomy, amy shoulder rotator cuff, mult heart stents,, LEFT LEG ARTERY X2 STENTS. COLONOSCOPY, amptation right 2nd toe Past Anesthesia/Blood Transfusion Reactions: Motion Sickness Date of Last Stent Placement:: 2016 Past Psychological History: Anxiety Additional Psychological History / Comment(s): .No tobacco use currently. No experience. Travel history. No animal exposures - Past Family History Mother Family Medical History: Cancer Father Family Medical History: Coronary Artery Disease (CAD) General Exam General appearance: alert, in no apparent distress Head exam: Present: atraumatic, normocephalic Eye exam: Present: normal appearance, PERRL, EOMI ENT exam: Present: normal exam Neck exam: Present: normal inspection. Absent: tenderness, meningismus Respiratory exam: Present: wheezes, rales, decreased breath sounds, prolonged expiratory. Absent: respiratory distress Cardiovascular Exam: Present: normal rhythm, tachycardia GI/Abdominal exam: Present: soft, distended. Absent: tenderness, guarding Extremities exam: Present: other (Erythema of the left great toe on the left with mild swelling and streaking erythema to the mid calf.) Neurological exam: Present: alert, oriented X3, CN II-XII intact. Absent: motor sensory deficit Psychiatric exam: Present: normal affect, normal mood Skin exam: Present: warm, dry, intact Course Vital Signs 09/25/17 09/25/17 09/25/17 17:21 17:44 17:45 Temperature 100.7 F H Pulse Rate 129 H 124 H 124 H Respiratory 20 18 20 Rate Blood Pressure 152/81 O2 Sat by Pulse 98 98 Oximetry 09/25/17 09/25/17 09/25/17 17:50 18:29 19:16 Temperature 99.3 F Pulse Rate 119 H 128 H 118 H Respiratory 18 20 20 Rate Blood Pressure 151/88 149/57 O2 Sat by Pulse 96 97 Oximetry - Reevaluation(s) Reevaluation #1: 09/25/17 [address] Martinez regarding EKG changes. He is familiar with this patient. He will plan heart cath either tomorrow or the following day. Patient is uncertain if he took his Xarelto today or not. Both Xarelto and heparin will be held at this time. Patient should continue aspirin and Plavix at the recommendation Dr. Martinez. EKG Findings - EKG Comments: EKG Findings:: EKG obtained at 1723 shows sinus tachycardia with significant ST segment depression in the precordial leads V2 through V6. No ST segment elevation appreciated. Rightward axis. Rate of 128, WV interval 138, QRS duration 82, QTC 504 which is prolonged. Repeat EKG shows sinus tachycardia with a rate of 111, WV interval 148, QRS duration 76, QTC 505, there is improvement in previously noted ST segment depression. Medical Decision Making - Medical Decision Making 62-year-old male presenting with cough and dyspnea. He does have a history of COPD and congestive heart failure. Pulmonary auscultation reveals wheezing and rails. He has been treated by EMS prior to arrival with 2 doses of albuterol. He denies significant chest pain, he does report some mild chest tightness. EKG is obtained, shows significant abnormality with tachycardia and ST segment depression in the precordial leads. Chest x-ray shows pulmonary edema with some focal edema in the right upper lung field concerning for pneumonia. Given the patient's cough, dyspnea, fever, and elevated white blood cell count, he will be treated for healthcare associated pneumonia. Hemoglobin is 12.1. Creatinine normal. Blood glucose 360 which is elevated. Troponin is elevated at 0.316 along with BNP of 3700. Patient's EKG changes likely related to demand as they improve as heart rate is down trending. Case discussed with Dr. Martinez who will likely take the patient for heart catheterization in the next 2448 hrs. Recommends holding Xarelto, no heparin at this time. Continue aspirin and Plavix. Patient will be admitted for cardiology evaluation regarding non-ST segment elevated [place] and congestive heart failure, treatment of healthcare associated pneumonia, left lower extremity cellulitis and osteomyelitis. - Lab Data Result diagrams: 09/25/17 17:35 09/25/17 17:35 Lab Results 09/25/17 09/25/17 09/25/17 Range/Units 17:35 17:35 17:35 WBC 17.8 H (3.8-10.6) k/uL RBC 4.94 (4.30-5.90) m/uL Hgb 12.1 L (13.0-17.5) gm/dL Hct 38.2 L (39.0-53.0) % MCV 77.4 L (80.0-100.0) fL MCH 24.6 L (25.0-35.0) pg MCHC 31.8 (31.0-37.0) g/dL RDW 16.3 H (11.5-15.5) % Plt Count 321 (150-450) k/uL Neutrophils % 87 % Lymphocytes % 7 % Monocytes % 5 % Eosinophils % 1 % Basophils % 0 % Neutrophils # 15.6 H (1.3-7.7) k/uL Lymphocytes # 1.2 (1.0-4.8) k/uL Monocytes # 0.9 (0-1.0) k/uL Eosinophils # 0.1 (0-0.7) k/uL Basophils # 0.0 (0-0.2) k/uL Anisocytosis Slight Microcytosis Slight PT (9.0-12.0) sec INR (<1.2) APTT (22.0-30.0) sec Sodium 139 (137-145) mmol/L Potassium 4.5 (3.5-5.1) mmol/L Chloride 99 (98-107) mmol/L Carbon Dioxide 23 (22-30) mmol/L Anion Gap 17 mmol/L BUN 16 (9-20) mg/dL Creatinine 0.60 L (0.66-1.25) mg/dL Est GFR (CKD-EPI)AfAm >90 (>60 ml/min/1.73 sqM) Est GFR (CKD-EPI)NonAf >90 (>60 ml/min/1.73 sqM) Glucose 361 H (74-99) mg/dL POC Glucose (mg/dL) (75-99) mg/dL POC Glu Nicker And Breaker ID Plasma Lactic Acid Yury (0.7-2.0) mmol/L Calcium 9.4 (8.4-10.2) mg/dL Magnesium 1.8 (1.6-2.3) mg/dL Total Bilirubin 1.0 (0.2-1.3) mg/dL AST 23 (17-59) U/L ALT 22 (21-72) U/L Alkaline Phosphatase 141 H (38-126) U/L Total Creatine Kinase 83 (55-170) U/L CK-MB (CK-2) 4.7 H* (0.0-2.4) ng/mL CK-MB (CK-2) Rel Index 5.7 Troponin I 0.316 H* (0.000-0.034) ng/mL NT-Pro-B Natriuret Pep pg/mL Total Protein 6.8 (6.3-8.2) g/dL Albumin 3.9 (3.5-5.0) g/dL Urine Color Urine Appearance (Clear) Urine pH (5.0-8.0) Ur Specific [place] (1.001-1.035) Urine Protein (Negative) Urine Glucose (UA) (Negative) Urine Ketones (Negative) Urine Blood (Negative) Urine Nitrite (Negative) Urine Bilirubin (Negative) Urine Urobilinogen (<2.0) mg/dL Ur Leukocyte Esterase (Negative) 09/25/17 09/25/17 09/25/17 Range/Units 17:35 17:35 17:35 WBC (3.8-10.6) k/uL RBC (4.30-5.90) m/uL Hgb (13.0-17.5) gm/dL Hct (39.0-53.0) % MCV (80.0-100.0) fL MCH (25.0-35.0) pg MCHC (31.0-37.0) g/dL RDW (11.5-15.5) % Plt Count (150-450) k/uL Neutrophils % % Lymphocytes % % Monocytes % % Eosinophils % % Basophils % % Neutrophils # (1.3-7.7) k/uL Lymphocytes # (1.0-4.8) k/uL Monocytes # (0-1.0) k/uL Eosinophils # (0-0.7) k/uL Basophils # (0-0.2) k/uL Anisocytosis Microcytosis PT 10.2 (9.0-12.0) sec INR 1.0 (<1.2) APTT 26.3 (22.0-30.0) sec Sodium (137-145) mmol/L Potassium (3.5-5.1) mmol/L Chloride (98-107) mmol/L Carbon Dioxide (22-30) mmol/L Anion Gap mmol/L BUN (9-20) mg/dL Creatinine (0.66-1.25) mg/dL Est GFR (CKD-EPI)AfAm (>60 ml/min/1.73 sqM) Est GFR (CKD-EPI)NonAf (>60 ml/min/1.73 sqM) Glucose (74-99) mg/dL POC Glucose (mg/dL) (75-99) mg/dL POC Glu Nicker And Breaker ID Plasma Lactic Acid Yury 1.7 (0.7-2.0) mmol/L Calcium (8.4-10.2) mg/dL Magnesium (1.6-2.3) mg/dL Total Bilirubin (0.2-1.3) mg/dL AST (17-59) U/L ALT (21-72) U/L Alkaline Phosphatase (38-126) U/L Total Creatine Kinase (55-170) U/L CK-MB (CK-2) (0.0-2.4) ng/mL CK-MB (CK-2) Rel Index Troponin I (0.000-0.034) ng/mL NT-Pro-B Natriuret Pep 3780 pg/mL Total Protein (6.3-8.2) g/dL Albumin (3.5-5.0) g/dL Urine Color Urine Appearance (Clear) Urine pH (5.0-8.0) Ur Specific [place] (1.001-1.035) Urine Protein (Negative) Urine Glucose (UA) (Negative) Urine Ketones (Negative) Urine Blood (Negative) Urine Nitrite (Negative) Urine Bilirubin (Negative) Urine Urobilinogen (<2.0) mg/dL Ur Leukocyte Esterase (Negative) 09/25/17 09/25/17 Range/Units 17:43 18:30 WBC (3.8-10.6) k/uL RBC (4.30-5.90) m/uL Hgb (13.0-17.5) gm/dL Hct (39.0-53.0) % MCV (80.0-100.0) fL MCH (25.0-35.0) pg MCHC (31.0-37.0) g/dL RDW (11.5-15.5) % Plt Count (150-450) k/uL Neutrophils % % Lymphocytes % % Monocytes % % Eosinophils % % Basophils % % Neutrophils # (1.3-7.7) k/uL Lymphocytes # (1.0-4.8) k/uL Monocytes # (0-1.0) k/uL Eosinophils # (0-0.7) k/uL Basophils # (0-0.2) k/uL Anisocytosis Microcytosis PT (9.0-12.0) sec INR (<1.2) APTT (22.0-30.0) sec Sodium (137-145) mmol/L Potassium (3.5-5.1) mmol/L Chloride (98-107) mmol/L Carbon Dioxide (22-30) mmol/L Anion Gap mmol/L BUN (9-20) mg/dL Creatinine (0.66-1.25) mg/dL Est GFR (CKD-EPI)AfAm (>60 ml/min/1.73 sqM) Est GFR (CKD-EPI)NonAf (>60 ml/min/1.73 sqM) Glucose (74-99) mg/dL POC Glucose (mg/dL) 357 H (75-99) mg/dL POC Glu Nicker And Breaker Belinda Schulz Plasma Lactic Acid Yury (0.7-2.0) mmol/L Calcium (8.4-10.2) mg/dL Magnesium (1.6-2.3) mg/dL Total Bilirubin (0.2-1.3) mg/dL AST (17-59) U/L ALT (21-72) U/L Alkaline Phosphatase (38-126) U/L Total Creatine Kinase (55-170) U/L CK-MB (CK-2) (0.0-2.4) ng/mL CK-MB (CK-2) Rel Index Troponin I (0.000-0.034) ng/mL NT-Pro-B Natriuret Pep pg/mL Total Protein (6.3-8.2) g/dL Albumin (3.5-5.0) g/dL Urine Color Yellow Urine Appearance Clear (Clear) Urine pH 6.0 (5.0-8.0) Ur Specific [place] 1.016 (1.001-1.035) Urine Protein Negative (Negative) Urine Glucose (UA) 4+ H (Negative) Urine Ketones 1+ H (Negative) Urine Blood Negative (Negative) Urine Nitrite Negative (Negative) Urine Bilirubin Negative (Negative) Urine Urobilinogen <2.0 (<2.0) mg/dL Ur Leukocyte Esterase Negative (Negative) Critical Care Time Critical Care Time: Yes Total Critical Care Time: 35 Disposition Clinical Impression: Congestive heart failure, HCAP (healthcare-associated pneumonia), NSTEMI (non- ST elevated myocardial infarction), Osteomyelitis Disposition: ADMITTED IP TO THIS [facility] Condition: Serious Is patient prescribed a controlled substance at d/c from ED?: No Referrals: Tr Naqvi DO [Primary Care Provider] - 1-2 days Decision to Admit Reason: Admit from EC Decision Date: 09/25/17 Decision Time: 20:03
[2017-09-25] MEDS ORDERED: MORPHINE SULFATE 4 MG/ML SYRINGE IVP STA ×2 (17:36→22:12)
[2017-09-25] MEDS ORDERED: ACETAMINOPHEN TAB 500 MG TAB PO STA (17:36)
[2017-09-25 17:43] LABS: Anisocytosis Slight; Basophils % (A) 0 %; Eosinophils # (A) 0.1 k/uL (0-0.7); Eosinophils % (A) 1 %; HCT 38.2 % (39.0-53.0); HGB 12.1 gm/dL (13.0-17.5); Lymphocytes # (A) 1.2 k/uL (1.0-4.8); Lymphocytes % (A) 7 %; MCH 24.6 pg (25.0-35.0); MCHC 31.8 g/dL (31.0-37.0); MCV 77.4 fL (80.0-100.0); Mean Platelet Volume 7.4; Microcytosis Slight; Monocytes # (A) 0.9 k/uL (0-1.0); Monocytes % (A) 5 %; Neutrophils # (A) 15.6 k/uL (1.3-7.7); Neutrophils % (A) 87 %; Platelet Count 321 k/uL (150-450); RBC 4.94 m/uL (4.30-5.90); RDW 16.3 % (11.5-15.5); WBC 17.8 k/uL (3.8-10.6)
[2017-09-25 17:45] LABS: Glucose,Whole Blood 357 mg/dL (75-99)
[2017-09-25 17:53] LABS: Partial Thromboplastin Time 26.3 sec (22.0-30.0); Prothrombin Time 10.2 sec (9.0-12.0)
[2017-09-25 18:03] LABS: ALT 22 U/L (21-72); AST 23 U/L (17-59); Albumin 3.9 g/dL (3.5-5.0); Alkaline Phosphatase 141 U/L (38-126); Anion Gap 17 mmol/L; Blood Urea Nitrogen 16 mg/dL (9-20); Calcium 9.4 mg/dL (8.4-10.2); Carbon Dioxide 23 mmol/L (22-30); Chloride 99 mmol/L (98-107); Glucose 361 mg/dL (74-99); Magnesium 1.8 mg/dL (1.6-2.3); Potassium 4.5 mmol/L (3.5-5.1); Sodium 139 mmol/L (137-145); Total Protein 6.8 g/dL (6.3-8.2)
[2017-09-25] MEDS ORDERED: SODIUM CHLORIDE 0.9% 500 ML IV ONE (18:12)
[2017-09-25 18:15] LABS: Creatine Kinase MB 4.7 ng/mL (0.0-2.4); Troponin I 0.316 ng/mL (0.000-0.034)
--- NOTE | 2017-09-25 18:16 | XR ---
EXAMINATION TYPE: XR foot complete LT DATE OF EXAM: 09/25/2017 COMPARISON: NONE HISTORY: Infection first digit TECHNIQUE: 3 views left foot FINDINGS: There is erosion of the tuft of the first digit. There is also erosion of the proximal meta physis of the distal phalanx first digit. Findings can be compatible with the patient's reported oste omyelitis. Soft tissue swelling is over this site Additional areas suspicious of osteomyelitis or not identified. Cortex otherwise appears intact. Join t spaces are preserved. No foreign bodies are evident. IMPRESSION: 1. Erosion of the proximal metaphysis and distal tuft of the distal phalanx first digit compatible w ith the patient's reported osteomyelitis.
--- NOTE | 2017-09-25 18:20 | XR ---
EXAMINATION TYPE: XR chest 2V DATE OF EXAM: 09/25/2017 COMPARISON: 04/07/2017 INDICATION: Difficulty breathing, cough TECHNIQUE: Frontal and lateral views of the chest are obtained. FINDINGS: The heart size is normal. The pulmonary vasculature is prominent. Mild infiltrates in the right suprahilar region with minimal infiltrate at the right base.. IMPRESSION: 1. Prominence of pulmonary vascular markings may be more focal in the right upper lobe. Correlate for atypical pulmonary edema. Pneumonia could be considered.
[2017-09-25] MEDS ORDERED: LEVOFLOXACIN 500MG-D5W PMX 500 MG in DEXTROSE/WATER 1 100ML.BAG IVPB STA (18:27)
[2017-09-25] MEDS ORDERED: VANCOMYCIN IV PER PHARMACY 1 EACH MISC MISCELLANE PRN (18:27)
[2017-09-25] MEDS ORDERED: VANCOMYCIN 1,750 MG in SODIUM CHLORIDE 0.9% 250 ML IVPB STA (18:32)
[2017-09-25] MEDS ORDERED: FUROSEMIDE 10 MG/ML 2 ML VIAL IV ONE (18:37)
[2017-09-25] MEDS ORDERED: FUROSEMIDE 10 MG/ML 4 ML VIAL IV STA (18:43)
[2017-09-25 19:05] LABS: Appearance,Urine Clear (Clear); Bilirubin,Urine Negative (Negative); Blood,Urine Negative (Negative); Color,Urine Yellow; Glucose,Urine (UA) 4+ (Negative); Ketones,Urine 1+ (Negative); Leukocyte Esterase,Urine Negative (Negative); Nitrite,Urine Negative (Negative); Protein,Urine Negative (Negative); Specific Gravity,Urine 1.016 (1.001-1.035); Urobilinogen,Urine <2.0 mg/dL (<2.0)
[2017-09-25] MEDS ORDERED: NALOXONE 0.4 MG/ML 1 ML VIAL IV PRN (19:49)
[2017-09-25] MEDS ORDERED: ACETAMINOPHEN TAB 325 MG TAB PO PRN (19:49)
[2017-09-25] MEDS: METOPROLOL TARTRATE 5 MG/5 ML VIAL IVP STA (19:51)
[2017-09-25] MEDS: LEVOFLOXACIN 500MG-D5W PMX 500 MG in DEXTROSE/WATER 1 100ML.BAG IVPB SCH (20:00)
[2017-09-25] MEDS: MORPHINE SULFATE 4 MG/ML SYRINGE IV PRN (20:03)
[2017-09-25 20:07] LABS: Glucose,Whole Blood 348 mg/dL (75-99)
[2017-09-25] MEDS: ALBUTEROL NEBULIZED 2.5 MG/3 ML INHALATION SCH (20:52)
[2017-09-25 20:58] LABS: Glucose,Whole Blood 352 mg/dL (75-99)
[2017-09-25] MEDS: INSULIN DETEMIR 100 UNIT/ML 10 ML VIAL SQ SCH (21:32)
[2017-09-25] MEDS: FUROSEMIDE 10 MG/ML 4 ML VIAL IV SCH (21:32)
[2017-09-25] MEDS: ATORVASTATIN 40 MG TAB PO SCH (21:32)
[2017-09-25] MEDS: METOPROLOL TARTRATE 50 MG TAB PO SCH (21:32)
[2017-09-25] MEDS: ALPRAZolam 0.25 MG TAB PO PRN (21:50)
[2017-09-25] MEDS: INSULIN ASPART 100 UNIT/ML 1 ML 10 ML VIAL SQ SCH (22:01)
[2017-09-25] MEDS ORDERED: METOPROLOL TARTRATE 5 MG/5 ML VIAL IVP ONE (22:11)
[2017-09-26 00:41] LABS: Troponin I 3.07 ng/mL (0.000-0.034)
[2017-09-26 01:12] LABS: Glucose,Whole Blood 229 mg/dL (75-99)
[2017-09-26] MEDS: LORazepam 2 MG/ML INJ IV STA ×2 (01:19→07:43)
[2017-09-26] MEDS: MORPHINE SULFATE 4 MG/ML SYRINGE IV PRN ×3 (04:11→23:07)
[2017-09-26] MEDS: VANCOMYCIN 1,750 MG in SODIUM CHLORIDE 0.9% 250 ML IVPB SCH ×3 (04:12→20:57)
[2017-09-26 06:02] LABS: Anisocytosis Slight; Basophils % (A) 0 %; Eosinophils % (A) 0 %; HCT 37.1 % (39.0-53.0); Hypochromasia Slight; Lymphocytes # (A) 1.6 k/uL (1.0-4.8); Lymphocytes % (A) 9 %; MCH 25.4 pg (25.0-35.0); MCHC 32.2 g/dL (31.0-37.0); MCV 78.8 fL (80.0-100.0); Mean Platelet Volume 6.8; Microcytosis Slight; Monocytes % (A) 5 %; Neutrophils # (A) 16.3 k/uL (1.3-7.7); Neutrophils % (A) 85 %; Platelet Count 284 k/uL (150-450); RBC 4.71 m/uL (4.30-5.90); RDW 16.5 % (11.5-15.5); WBC 19.2 k/uL (3.8-10.6)
[2017-09-26 06:10] LABS: ALT 25 U/L (21-72); AST 51 U/L (17-59); Albumin 3.6 g/dL (3.5-5.0); Alkaline Phosphatase 122 U/L (38-126); Anion Gap 13 mmol/L; Blood Urea Nitrogen 16 mg/dL (9-20); Calcium 9.4 mg/dL (8.4-10.2); Carbon Dioxide 28 mmol/L (22-30); Chloride 100 mmol/L (98-107); Glucose 205 mg/dL (74-99); Magnesium 1.7 mg/dL (1.6-2.3); Potassium 4.6 mmol/L (3.5-5.1); Sodium 141 mmol/L (137-145); Total Bilirubin 1.2 mg/dL (0.2-1.3); Total Protein 6.3 g/dL (6.3-8.2)
[2017-09-26 06:23] LABS: Glucose,Whole Blood 230 mg/dL (75-99)
[2017-09-26 06:43] LABS: Creatine Kinase MB 16.3 ng/mL (0.0-2.4); Troponin I 5.85 ng/mL (0.000-0.034)
[2017-09-26] MEDS: INSULIN ASPART 100 UNIT/ML 1 ML 10 ML VIAL SQ SCH ×4 (06:58→21:11)
[2017-09-26] MEDS: CLOPIDOGREL 75 MG TAB PO SCH (06:59)
[2017-09-26] MEDS: ASPIRIN 81 MG PO SCH (06:59)
[2017-09-26] MEDS: METOPROLOL TARTRATE 50 MG TAB PO SCH ×2 (06:59→20:57)
[2017-09-26] MEDS ORDERED: LORazepam 2 MG/ML INJ IV STA ×2 (07:19→07:36)
[2017-09-26] MEDS ORDERED: INSULIN ASPART 100 UNIT/ML 1 ML 10 ML VIAL SQ SCH (07:30)
[2017-09-26] MEDS ORDERED: METOPROLOL TARTRATE 5 MG/5 ML VIAL IVP ONE ×2 (07:37→07:40)
[2017-09-26] MEDS ORDERED: LORazepam 2 MG/ML INJ ONE (07:39)
[2017-09-26] MEDS: METOPROLOL TARTRATE 5 MG/5 ML VIAL IVP STA (07:42)
[2017-09-26] MEDS: ALBUTEROL NEBULIZED 2.5 MG/3 ML INHALATION SCH ×4 (08:13→19:15)
[2017-09-26] MEDS: FUROSEMIDE 10 MG/ML 4 ML VIAL IV SCH ×2 (08:41→20:57)
[2017-09-26] MEDS: INSULIN DETEMIR 100 UNIT/ML 10 ML VIAL SQ SCH ×2 (08:41→20:57)
[2017-09-26] MEDS: INSULN ASP PRT/INSULIN ASPART 100 UNIT/ML 10 ML VIAL SQ SCH ×3 (08:41→18:13)
[2017-09-26] MEDS ORDERED: VERAPAMIL 2.5 MG/ML 2 ML AMP ONE (10:26)
[2017-09-26] MEDS ORDERED: diphenhydrAMINE 50 MG/ML 1 ML VIAL ONE (10:26)
[2017-09-26] MEDS ORDERED: LIDOCAINE 2% INJ 20 MG/ML (20 ML MDV) ONE (10:26)
[2017-09-26] MEDS ORDERED: MIDAZOLAM 2 MG/2 ML VIAL ONE (10:26)
[2017-09-26] MEDS ORDERED: IV FLUID CONTINUATION 1,000 ML IV ONE (10:34)
[2017-09-26] MEDS ORDERED: MIDAZOLAM 2 MG/2 ML VIAL IV ONE (10:42)
[2017-09-26] MEDS ORDERED: diphenhydrAMINE 50 MG/ML 1 ML VIAL IVP ONE (10:42)
[2017-09-26] MEDS ORDERED: MORPHINE SULFATE 4 MG/ML SYRINGE ONE (10:54)
[2017-09-26] MEDS: MORPHINE SULFATE 4 MG/ML SYRINGE IV ONE ×2 (10:55→11:43)
[2017-09-26] MEDS ORDERED: LIDOCAINE 2% INJ 20 MG/ML SQ ONE (11:00)
[2017-09-26] MEDS: VERAPAMIL SYRINGE (5 MG/10 ML) INTRAARTER ONE ×2 (11:03→12:12)
[2017-09-26] MEDS ORDERED: fentaNYL (PF) 50 MCG/ML 2 ML AMP ONE (11:08)
[2017-09-26] MEDS ORDERED: fentaNYL (PF) 50 MCG/ML 2 ML AMP IV ONE (11:10)
[2017-09-26] MEDS ORDERED: BIVALIRUDIN BOLUS 250 MG/50 ML IV ONE (11:24)
[2017-09-26] MEDS ORDERED: BIVALIRUDIN 250 MG in SODIUM CHLORIDE 0.9% 50 ML IV ONE ×2 (11:25→12:02)
[2017-09-26] MEDS ORDERED: IOPAMIDOL-370 100ML BTL INJ ONE ×2 (11:29→12:13)
[2017-09-26] MEDS: NITROGLYCERIN 1000MCG/10ML SYRINGE INTRACORON ONE ×2 (12:04→12:08)
[2017-09-26] MEDS ORDERED: CLOPIDOGREL 75 MG TAB ONE (12:10)
[2017-09-26] MEDS ORDERED: CLOPIDOGREL 75 MG TAB PO ONE (12:12)
[2017-09-26 12:41] LABS: Glucose,Whole Blood 180 mg/dL (75-99)
--- NOTE | 2017-09-26 14:03 | CC ---
CARDIAC CATHETERIZATION REPORT DATE OF SERVICE: 09/26/2017. PROCEDURE: 1. Coronary angiography. 2. PTCA and stenting of proximal and distal circumflex coronary artery with a drug- eluting stent. PERFORMED BY: Dr. Marycruz Martinez. ANESTHESIA: Moderate conscious sedation time was 93 minutes. The patient was administered morphine, fentanyl, and Versed and Benadryl and was monitored closely for oxygen saturation, hemodynamics and EKG. CLINICAL INFORMATION: This is a 62-year-old gentleman with a history of type 2 diabetes, prior myocardial infarction with multivessel PCI. Initially in 2006 and in 2010, I performed stenting in the main RCA and PDA locations. Subsequently he had circumflex disease and I performed interventions of circumflex also. The most recent intervention was in June when I performed stenting of proximal and mid circumflex coronary artery. He was advised medical therapy after that but he had diffuse disease in the RCA and LAD also. However, he presented to [facility] 2 weeks ago with a non-ST elevation PR type picture and CHF. He had severe decubitus that were quite significant and this was being addressed with antibiotics. I advised medical therapy and I was going to bring him electively to perform cardiac cath but he came into the hospital yesterday with shortness of breath, precordial ST depression and troponin elevation suggestive of non-ST elevation PR. After stabilizing him, I recommended coronary angiography. I suggested I will perform procedure from the right radial location. PROCEDURE NOTE: Under local anesthesia and strict aseptic precautions, a 6-Arabic introducer was placed in the right radial artery. I used a standard right Luis Angel catheter to selectively cannulate the right coronary artery and a JL3.5 for the left coronary artery. I did not check LV pressures. I noted the circumflex had restenosis and also new areas of narrowing and I advised intervention that was performed in the same setting. PCI PROCEDURE DETAILS: I used a standard left Luis Angel type guide catheter to cannulate the left coronary artery. I used a run-through wire to cross the lesions in the circumflex and kept the wire very distally. I advanced a 2.25 caliber 12 mm NC Trek balloon to dilate the mid circumflex, but I could not reach the distal circumflex. The lesion was quite tight. I used a 1.5 caliber mini Trek balloon. With this I gave inflations and then used a 2.0 balloon to dilate the distal circumflex lesion which was 99%. The proximal circumflex was about 90%. I then advanced a 2.25 caliber 12 mm Xience stent and deployed this in the distal lesion. However, just beyond the stented segment, there was another area of haziness and I could not reach it with the stent, so I dilated with a 2.25 caliber 12 mm balloon with a prolonged inflation. I then turned my attention to the proximal circumflex. The entire length of circumflex was dilated with a 2.25 caliber 12 mm long NC Trek balloon. I then deployed a 15 mm long 2.5 caliber Xience stent in the proximal lesion just at the origin of a left atrial circumflex branch and also jailing the groove branch. Excellent angiographic result was achieved in the stented segment. Distally there was some haziness, but the flow was excellent and entire vessels were filled up. The patient had a lot of discomfort in his back. He had a decubital ulcer during the procedure, but did not have any angina. He received Angiomax bolus and infusion as per protocol. He was already on Plavix and I gave additional 150 mg of Plavix. An excellent angiographic result was achieved of the circumflex after 2 drug-eluting stents and the distal lesion was then dilated. Results were discussed with the patient and also I talked to the by phone. CORONARY ANGIOGRAPHY FINDINGS: RIGHT CORONARY ARTERY: This is technically a dominant vessel which was stented in the proximal and midportion. These areas opened, the PDA is also open. There is diffuse disease throughout the right coronary artery, but no more than 30-40% lesions are noted. Probably the tightest spot is 40% diffuse nature of disease, but no significant obstructive and flow is brisk. It also fills the collaterals. It fills by collaterals to the distal branches of circumflex. LEFT MAIN CORONARY ARTERY: Very short patent vessel that immediately bifurcates into LAD and circumflex. LEFT ANTERIOR DESCENDING CORONARY ARTERY: This vessel has about a 30-40% diffuse narrowing. Gives off a good-sized septal branch that gives secondary septal branches and a good-sized diagonal branch that runs long anterior wall. LAD runs all the way to the apex supplying a sizable amount of myocardium. There is no significant disease in the LAD. LEFT POSTERIOR CIRCUMFLEX CORONARY ARTERY: This vessel has a very tight proximal lesion at the takeoff of left atrial circumflex branch and this is a 90% lesion. Appears to be just proximal to the previously placed stent. There was another lesion of about 80% within the previously stented segment. Distally there is 99% stenosis and then the caliber of the vessel improves beyond that, supplying the posterior lateral segment. The distal circumflex therefore has a 99% and proximal circumflex has 90% lesion. The groove branch has good flow and the left atrial circumflex has good flow. RECOMMENDATIONS: I recommended PCI of circumflex that was performed and 2 drug-eluting stents were deployed. The patient tolerated procedure well without complications. A TR band was applied to the right radial site and the saturation of the fingers of the right hand was 95%. An excellent result was achieved in spite of the diffuse nature of disease. MMODL / IJN: [id number] /
[2017-09-26 14:26] VITALS: BMI 35.1
[2017-09-26 16:42] LABS: Glucose,Whole Blood 315 mg/dL (75-99)
[2017-09-26] MEDS ORDERED: ALBUTEROL NEBULIZED 2.5 MG/3 ML INHALATION PRN (17:51)
[2017-09-26] MEDS ORDERED: OXYCODONE HCL 15 MG PO PRN (17:51)
[2017-09-26] MEDS ORDERED: INSULIN GLARGINE HUM REC ANLOG SQ SCH (18:00)
[2017-09-26] MEDS: LEVOFLOXACIN 500MG-D5W PMX 500 MG in DEXTROSE/WATER 1 100ML.BAG IVPB SCH (19:38)
--- NOTE | 2017-09-26 20:42 | HP ---
HISTORY AND PHYSICAL CHIEF COMPLAINT: Chest pain and shortness of breath. HISTORY OF PRESENT ILLNESS: This 62-year-old gentleman with a past medical history of multiple medical problems, including history of CAD, COPD, CVA, TIA, diabetes mellitus, DVT, GERD, hypertension, hyperlipidemia, history of pulmonary embolism being followed by Dr. Naqvi in the outpatient setting, was complaining of shortness of breath and chest pain for the last several days. The patient came to [facility], was admitted for further evaluation and treatment. The patient was evaluated at [facility], also. The patient is scheduled for cardiac catheterization. The chest pain is felt in the anterior part of the chest without much radiation and on admission, the patient had elevated troponins which went up to 5.850. Cardiology evaluate the patient and the patient underwent a cardiac catheterization and the patient underwent PTCA and stenting of the proximal and distal circumflex coronary artery with drug-eluting stent by Dr. Marycruz Martinez. There is no history of fever, rigors. No history of any headache, loss of consciousness or seizures at this time. The patient also had a foot x-ray done which showed of the proximal metaphysis and distal tuft of the distal phalanx of the 1st digit compared and the patient had a previous history of osteomyelitis as well. There is no history of any fever, rigors, chills. PAST MEDICAL HISTORY: History of CAD, COPD, CVA, DVT, GERD, hypertension, hyperlipidemia, history of pulmonary embolism, history of foot infection, history of ulcers, history of Methicillin-resistant Staphylococcus aureus. MEDICATIONS PRIOR TO ADMISSION: Include home medications are: 1. Metoprolol. 2. Lopressor 50 mg p.o. b.i.d. 3. Lantus 20 units subcu b.i.d. 4. Novolin 70/30, 50 units subcu q.a.m. and 12 units subcu q.p.m. 5. Plavix 75 mg p.o. daily. 6. Lipitor 40 mg q.h.s. 7. Ecotrin 81 mg. 8. Valium 2.5 q.i.d. 9. Xanax 0.5 q.h.s. p.r.n. 10.Multivitamin. 11.Xarelto 20 mg p.o. daily. 12.Pro-Stat 1 capsule p.o. daily. 13.Lyrica 150 mg p.o. b.i.d. 14.Protonix 40 mg daily. 15.Melatonin 1 mg q.h.s. 16.Cozaar 25 mg p.o. daily. 17.Claritin 10 mg p.o. daily. 18.Imdur ER 30 mg p.o. daily. 19.Toujeo 28 subcu b.i.d. 20.Lasix 40 mg p.o. daily. 21.Iron 325 mg p.o. daily. 22.Pepcid 20 mg p.o. daily. 23.Cymbalta 60 mg daily. 24.Vitamin D3 3000 daily. 25.Dulcolax 10 mg daily p.r.n. 26.Bacitracin ointment. ALLERGIES: CEPHALEXIN. FAMILY HISTORY: History of cancer in the family. SOCIAL HISTORY: Previous history of smoking. No history of current smoking or alcohol. REVIEW OF SYSTEMS: ENT: Diminished hearing, diminished vision. CARDIOVASCULAR: As mentioned earlier. RESPIRATORY: As mentioned earlier. GI: No nausea or vomiting. : No dysuria. NERVOUS: No numbness or weakness. ALLERGY/IMMUNOLOGY: No asthma or hay fever. MUSCULOSKELETAL: As mentioned earlier. HEMATOLOGY/ONCOLOGY: No history of anemia. ENDOCRINE: History of diabetes mellitus. CONSTITUTIONAL: As mentioned earlier. DERMATOLOGY: Negative. RHEUMATOLOGY: Negative. PSYCHIATRY: As mentioned earlier. PHYSICAL EXAMINATION: Alert and oriented x3. Pulse is 114, blood pressure 153/73, respirations 16, temperature is normal. Pulse ox 94% on room air. HEENT: Conjunctivae normal. Oral mucosa moist. NECK: No jugular venous distention. No carotid bruits. No lymph node enlargement. CARDIOVASCULAR: S1, S2 muffled. No S3, S4. Ejection systolic murmur. RESPIRATORY: Breath sounds diminished in the bases. A few scattered rhonchi, basilar crackles. ABDOMEN: Soft, obese, nontender. No mass palpable. LEGS: Minimal edema. NERVOUS SYSTEM: Higher functions as mentioned earlier. Moves all 4 limbs. No focal motor or sensory deficits. LYMPHATIC: No lymphadenopathy in neck or axillae. SKIN: No ulcer, rash or bleeding. LAB STUDIES: WBC 19, hemoglobin is 12. Glucose 205 and troponin is 5.850. ASSESSMENT: 1. Chest pain with acute non ST-segment elevation myocardial infarction, status post percutaneous transluminal coronary angioplasty, stenting of the proximal and distal circumflex coronary artery with a drug-eluting stent. 2. Congestive heart failure acute exacerbation. 3. History of coronary artery disease. 4. Chronic obstructive pulmonary disease. 5. History of cerebrovascular accident, transient ischemic attack. 6. Diabetes mellitus type 2. 7. Deep venous thrombosis. 8. History of osteomyelitis. 9. Gastroesophageal reflux disease. 10.Hypertension. 11.Hyperlipidemia. 12.History of myocardial infarction. 13.History of degenerative joint disease. 14.History of pulmonary embolism. 15.History of pneumonia. 16.History of Clostridium difficile. 17.History of myopathy. 18.History of Methicillin-resistant Staphylococcus aureus. 19.History of coronary artery disease and stent. 20.History of anxiety. 21.Remote history of nicotine dependence. RECOMMENDATIONS AND DISCUSSION: In this 62-year-old gentleman who presented with multiple complex medical issues , will monitor the patient closely, continue the current medical management and symptomatic treatment. Will initiate the home medications. Continue with the bronchodilators. Cautious diuresis. Otherwise, closely follow with Cardiology. Beta blockers and antiplatelet agents, broad-spectrum IV antibiotics and infectious disease evaluation for continued followup for the osteomyelitis. Guarded prognosis. Further recommendations to follow. A copy of the dictation will be forwarded to Dr. Naqvi, who is the primary physician. MMGOPIL / IJN: [id number] / SHAWN
[2017-09-26] MEDS: ATORVASTATIN 40 MG TAB PO SCH (20:57)
[2017-09-26] MEDS: ALPRAZolam 0.25 MG TAB PO PRN (20:57)
[2017-09-26] MEDS: MELATONIN 1 MG TAB PO SCH (20:57)
[2017-09-26] MEDS: DULoxetine HCL 30 MG CAPSULE.DR PO SCH (20:58)
[2017-09-26 21:00] LABS: Glucose,Whole Blood 215 mg/dL (75-99)
[2017-09-26] MEDS: PREGABALIN 75 MG CAP PO SCH (21:12)
--- NOTE | 2017-09-26 21:42 | CONS ---
CONSULTATION This is a 62-year-old gentleman with type 2 diabetes, hypertension, hyperlipidemia, peripheral arterial disease status post revascularization percutaneously of his lower extremities. He has a history of CAD and prior myocardial infarction. Underwent stenting of RCA performed as well as well as the PDA branch of RCA in 2006 and 2010. He has also has multiple interventions of circumflex performed, the last one was in June 2016. He was admitted to [facility] 2 weeks ago with CHF and had some EKG changes, non ST elevation HI but were treated medically because of some active infection involving his decubitus ulcers in the sacral area. However, he saw me in the office and he was scheduled to have a cardiac cath, but comes in with chest pain and more importantly shortness of breath with a troponin elevation suggestive of non-ST elevation HI with precordial ST depression. At the time of my evaluation he is resting comfortably. Denies chest pain. He seems to respond to beta-blockers well. He is pain-free at this time, but did have shortness of breath and chest pain yesterday. PAST MEDICAL HISTORY: 1. Type 2 diabetes mellitus on insulin. 2. Peripheral arterial disease. 3. Diabetes related neuropathy. 4. History of multivessel PCI and prior myocardial infarction. 5. Paroxysmal atrial fibrillation. MEDICATIONS: At home include metoprolol tartrate 50 mg b.i.d., Lantus and NovoLog insulin, aspirin, atorvastatin 40 mg daily, Xarelto 20 mg daily for paroxysmal atrial fibrillation, losartan 25 mg daily. EXAMINATION: Blood pressure is 140/80, pulse rate is about 98 per minute, regular. HEENT: Unremarkable. Fundus was not examined by me. NECK: Supple. There is JVD of 1 cm. No carotid bruit. HEART: Reveals S1, S2. Distant heart sounds. Short systolic murmur. Lungs are clear. Abdomen is soft. Lower extremities reveal diminished pulses. Decubitus ulcer on the sacral area is noted. Central nervous system is grossly within normal limits. EKG revealed a sinus tachycardia with precordial ST elevation, which has improved. Repeat EKG is actually quite normal with sinus tach. LAB DATA: Suggests elevated troponin up to 5.2. IMPRESSION: 1. Acute non-ST elevation HI. 2. Exacerbation of CHF. 3. History of diastolic dysfunction. 4. Peripheral artery disease. 5. Ischemic heart disease with prior multivessel intervention, last one was circumflex in June. RECOMMENDATION: I am recommending coronary angiography and based on findings, intervention. I have given the patient some Ativan, metoprolol tartrate and he seems to tolerate this well. He is feeling better. Will proceed with cardiac cath and possible intervention based on findings. Thank you very much for the consult. JANNETTE / DOYLE: [id number] /
[2017-09-26] MEDS: AZTREONAM 2 GM in SODIUM CHLORIDE 0.9% 100 ML IVPB SCH (23:06)
--- NOTE | 2017-09-26 23:18 | CONS ---
CONSULTATION DATE OF SERVICE: 09/26/2017. REASON FOR CONSULTATION: Sepsis and sacral wound. HISTORY OF PRESENT ILLNESS: The patient is a 62-year-old male who was recently admitted at [facility]. The patient did have a possible CHF with concern for possible VT. The patient now presenting to the [facility] ER with chief complaints of increasing shortness of breath. His symptoms have been getting worse for the last few days to a week. He did have some cough but not bringing up any sputum. He denies significant URI symptoms or any high-grade fever. With these symptoms, the patient was evaluated by the ER physician. On arrival to the ER, the patient did have a fever of 100.7 degrees Fahrenheit. The patient has been tachycardic though blood pressure has been stable. The patient did also have elevated white count of 17.8. The patient did have elevated troponin for which the patient has been taken to the laboratory equipment cleaner and the patient is status post coronary angiography with PTCA and stenting of the proximal and distal circumflex coronary artery with drug-eluting stent by Dr. Martinez. The patient did have a chest x-ray performed on admission, which is a prominence of pulmonary vascular markings, more focal in the right upper lobe, correlate for pulmonary edema or pneumonia. The patient was started on Levaquin and vancomycin because of his PENICILLIN/CEFAZOLIN ALLERGY. Infectious disease was consulted for further recommendations of antibiotic therapy. The patient also have a sacral wound that he developed while he was admitted at [facility] for his right second toe infection. He was on wound VAC until about 2 weeks ago and patient is currently being treated with wet-to-dry dressing changes. Denies significant pain into the sacral wound area especially if he sits on it or stays on the one side along with and no drainage reported. REVIEW OF SYSTEMS: CONSTITUTIONAL: Positive for weakness and low-grade fever. ENT no complaint. Respiratory as per HPI. Cardiovascular as per HPI. Genitourinary no complaint. Gastrointestinal: No complaint. Musculoskeletal: No complaint. Integumentary: As per HPI. Psychological: Slight anxiety. Endocrine: No complaint. Neurological no complaint. PAST MEDICAL HISTORY: Significant for coronary artery disease, COPD, CVA, TIA, diabetes mellitus, DVT, gastroesophageal reflux disease, hypertension, hyperlipidemia, VT, osteoarthritis, pulmonary embolism, right second toe gangrene, sacral pressure ulcer. PAST SURGICAL HISTORY: PTCA with stent, tonsillectomy, bunionectomy, bilateral shoulder rotator cuff repair, left leg swelling x2, colonoscopy, amputation of right 2nd toe. SOCIAL HISTORY: Denies any smoking, drinking or drug use. FAMILY HISTORY: Mother with history of cancer. Father history of coronary artery disease. ALLERGIES: TO CEPHALEXIN WITH A RASH. No history of anaphylaxis. MEDICATIONS: The patient is currently on vancomycin pharmacy dosing, Narcan, morphine sulfate, Lopressor, levofloxacin, Levemir, NovoLog, Lasix, Plavix, Lipitor, aspirin, Xanax, Tylenol. EXAMINATION: Blood pressure is 135/73 with a pulse of 114, T-max 100.7. He is 95% on room air. General description is a middle-aged male lying in bed in no distress with no tachypnea, or accessory muscles of respiration use. HEENT: Shows no pallor or scleral icterus. Oral mucosa membrane is dry. NECK: Trachea is central. No thyromegaly. LUNGS: Unlabored breathing with decreased breath sounds in the bases. No wheeze. HEART: S1, S2. Regular rate and rhythm. ABDOMEN: Soft, no tenderness. No guarding or rigidity. EXTREMITIES: No edema of the feet. Examination of sacral wound seems to have significantly decreased in size. No significant slough tissue or surrounding erythema. No foul smelling drainage. NEUROLOGICAL: Patient is awake, alert, oriented x3. Mood and affect normal. LABS: Hemoglobin is 12 with white count 19.2, was 17.8 yesterday with a BUN of 15, creatinine 0.65. Electrolytes have been normal. Liver enzymes are normal. Troponins are elevated. Urine is negative. Chest report as mentioned above. DIAGNOSTIC IMPRESSION/PLAN: 1. Patient with sepsis in a patient who did have a fever of 100.7, did have tachycardia with elevated white count. Source is likely pneumonia with abnormal x- ray showing fluid in the right upper lobe. The patient did have predominate respiratory symptoms. The patient has been in and out of the hospitals with recent admission at [facility], we will need to cover for the resistant gram positive as well as gram-negative pathogen. 2. Patient with sacral wound pressure ulcer. Currently, no cellulitis. Recommend local wound care. 3. Patient does have CEPHALEXIN ALLERGY that limits the number of antibiotics that could be safely used. PLAN: 1. We will try to obtain sputum for Gram stain culture and sensitivity. 2. We will keep the patient on vancomycin. However, add Azactam 2 g q.12 hours. 3. Aquacel silver packing of the sacral wound keep the area off the pressure. 4. As the patient is known to Dr. Mujica, he will follow the patient as of tomorrow. Thank you for this consultation. MMGOPIL / IJN: [id number] /
[2017-09-27] MEDS: VANCOMYCIN 1,750 MG in SODIUM CHLORIDE 0.9% 250 ML IVPB SCH ×3 (03:56→21:09)
[2017-09-27 06:05] LABS: Glucose,Whole Blood 82 mg/dL (75-99)
[2017-09-27] MEDS: INSULIN ASPART 100 UNIT/ML 1 ML 10 ML VIAL SQ SCH ×4 (06:31→21:09)
[2017-09-27] MEDS: ALBUTEROL NEBULIZED 2.5 MG/3 ML INHALATION SCH ×4 (07:46→19:44)
[2017-09-27] MEDS: INSULIN DETEMIR 100 UNIT/ML 10 ML VIAL SQ SCH ×2 (09:16→21:09)
[2017-09-27] MEDS: FUROSEMIDE 10 MG/ML 4 ML VIAL IV SCH (09:17)
[2017-09-27] MEDS: DULoxetine HCL 30 MG CAPSULE.DR PO SCH ×2 (09:17→20:39)
[2017-09-27] MEDS: ISOSORBIDE MONONITRATE ER 30 MG TAB.ER.24H PO SCH (09:17)
[2017-09-27] MEDS: LACTOBACILLUS ACIDOPH & BULGAR 1 EACH PACKET PO SCH (09:18)
[2017-09-27] MEDS: FERROUS SULFATE 325 MG TAB PO SCH (09:18)
[2017-09-27] MEDS: FAMOTIDINE 20 MG TAB PO SCH (09:19)
[2017-09-27] MEDS: LORATADINE 10 MG TAB PO SCH (09:19)
[2017-09-27] MEDS: CHOLECALCIFEROL 1,000 UNIT TAB PO SCH (09:20)
[2017-09-27] MEDS: METOPROLOL TARTRATE 50 MG TAB PO SCH ×2 (09:20→20:38)
[2017-09-27] MEDS: PANTOPRAZOLE 40 MG TABLET PO SCH (09:20)
[2017-09-27] MEDS: ASPIRIN 81 MG PO SCH (09:20)
[2017-09-27] MEDS: LOSARTAN 25 MG TAB PO SCH (09:20)
[2017-09-27] MEDS: CLOPIDOGREL 75 MG TAB PO SCH (09:20)
[2017-09-27] MEDS: PREGABALIN 75 MG CAP PO SCH ×2 (09:31→20:39)
[2017-09-27] MEDS: MORPHINE SULFATE 4 MG/ML SYRINGE IV PRN ×3 (09:39→23:42)
[2017-09-27] MEDS: INSULN ASP PRT/INSULIN ASPART 100 UNIT/ML 10 ML VIAL SQ SCH ×3 (10:41→18:16)
[2017-09-27] MEDS ORDERED: VANCOMYCIN TROUGH DUE 1 EACH MISC MISCELLANE ONE (11:00)
[2017-09-27 11:44] LABS: Glucose,Whole Blood 184 mg/dL (75-99)
[2017-09-27] MEDS: AZTREONAM 2 GM in SODIUM CHLORIDE 0.9% 100 ML IVPB SCH ×3 (12:35→23:50)
--- NOTE | 2017-09-27 12:59 | P.PN ---
Subjective Progress Note Date: 09/27/17 Principal diagnosis: Non-STEMI This is a 62-year-old gentleman with known history of diabetes, hypertension, hyperlipidemia, peripheral tear disease status post revascularization of his lower extremities. History of coronary artery disease with prior PR for which he underwent RCA stenting and PDA branch of the RCA in 2006 2010. Patient also has had multiple interventions of the circumflex performed. Patient presented to the hospital on this occasion with a non-ST elevation myocardial infarction. He was taken to the cardiac catheterization lab by Dr. Martinez where he underwent stenting of the circumflex. Patient was seen and examined this morning, denied any chest pain or difficulty in breathing. Blood pressure 126/ 60 with a heart rate in the 90s. 92% on room air. He has been encouraged today to be up ambulating in the floerz, plan for possible discharge home in 24 hours if stable. Objective - Vital Signs Vital signs: Vital Signs Temp 98.3 F 09/27/17 04:00 Pulse 100 09/27/17 11:25 Resp 16 09/27/17 08:00 BP 127/61 09/27/17 04:00 Pulse Ox 92 L 09/27/17 04:00 Intake & Output 09/26/17 09/27/17 09/27/17 18:59 06:59 18:59 Intake Total 858.5 240 Output Total 225 600 Balance 633.5 -600 240 Weight 114.2 kg 114.6 kg Intake: IV 253.5 Intake, IV Titration 125 Amount Vancomycin 1,750 mg In 125 Sodium Chloride 0.9% 250 ml @ 125 mls/hr IVPB Q8H [facility] Rx#:[id number] Oral 480 240 Output: Urine 225 600 Other: Voiding Method Urinal Toilet # Voids 2 - Exam PHYSICAL EXAMINATION: GENERAL: HEENT: Head is atraumatic, normocephalic. Pupils equal, round. Sclera anicteric. Conjunctiva are clear. Mucous membranes of the mouth are moist. Neck is supple. There is no elevated jugular venous pressure.] bruit is heard. HEART EXAMINATION: Heart S1, S2 normal. No murmur or gallop heard. CHEST EXAMINATION: Lungs are clear to auscultation and precussion. No chest wall tenderness is noted on palpation or with deep breathing. ABDOMEN: Soft, nontender. Bowel sounds are heard. No organomegaly noted. EXTREMITIES: 2+ peripheral pulses with no evidence of peripheral edema and no calf tenderness noted. Right radial site mildly swollen, good distal pulse, no hematoma. NEUROLOGIC patient is awake, alert and oriented -3. . - Labs CBC & Chem 7: 09/26/17 05:26 09/26/17 05:26 Labs: Abnormal Lab Results - Last 24 Hours (Table) 09/26/17 09/26/17 09/26/17 Range/Units 12:38 16:38 20:57 POC Glucose (mg/dL) 180 H 315 H 215 H (75-99) mg/dL 09/27/17 Range/Units 11:42 POC Glucose (mg/dL) 184 H (75-99) mg/dL Microbiology - Last 24 Hours (Table) 09/25/17 17:35 Blood Culture - Preliminary Blood No Growth after 24 hours Assessment and Plan Plan: Assessment and plan #1 non-ST elevation myocardial infarction, status post angioplasty and stenting of the circumflex artery. #2 known history of coronary artery disease with prior multivessel stenting #3 hypertension #4 hyperlipidemia # 5 diabetes #6 PAD #7 paroxysmal atrial fibrillation Plan Patient has been encouraged to be up ambulating in the hallway today, plan for possible discharge home in 24 hours if stable. Patient will be discharged home on aspirin 81 mg daily, Lipitor 40 mg daily, Plavix 75 mg daily, metoprolol 50 mg one tablet by mouth twice a day, we will resume losartan 25 mg daily. DNP note has been reviewed, I agree with a documented findings and plan of care. Patient was seen and examined.
[2017-09-27 13:06] LABS: Hemoglobin A1C 8.7 % (4.0-6.0)
--- NOTE | 2017-09-27 16:04 | ECHOF ---
Referral Reason:chest pain MEASUREMENTS -------- HEIGHT: 180.3 cm WEIGHT: 114.3 kg BP: 89/40 RVIDd: 3.5 cm (< 3.3) IVSd: 1.3 cm (0.6 - 1.1) LVIDd: 4.9 cm (3.9 - 5.3) LVPWd: 1.3 cm (0.6 - 1.1) IVSs: 1.6 cm LVIDs: 4.0 cm LVPWs: 1.7 cm LA Diam: 3.8 cm (2.7 - 3.8) LAESV Index (A-L): 29.06 ml/m Ao Diam: 3.6 cm (2.0 - 3.7) AV Cusp: 2.2 cm (1.5 - 2.6) MV EXCURSION: 21.518 mm (> 18.000) MV EF SLOPE: 89 mm/s (70 - 150) EPSS: 0.8 cm MV E Harrison: 1.32 m/s MV DecT: 189 ms MV A Harrison: 0.81 m/s MV E/A Ratio: 1.63 RAP: 15.00 mmHg RVSP: 44.74 mmHg FINDINGS -------- Sinus rhythm. This was a technically good study. The left ventricular size is normal. There is mild concentric left ventricular hypertrophy. Overa ll left ventricular systolic function is low-normal with, an EF between 50 - 55 %. The right ventricle is mildly enlarged. LA is midly dilated 29-33ml/m2. The right atrium is normal in size. There is mild aortic valve sclerosis. The mitral valve leaflets are mildly thickened. Mild mitral annular calcification present. Mild m itral regurgitation is present. Mild tricuspid regurgitation present. There is mild pulmonary hypertension. The right ventricular systolic pressure, as measured by Doppler, is 44.74mmHg. Trace/mild (physiologic) pulmonic regurgitation. The aortic root size is normal. The inferior vena cava is dilated with no significant inspiratory collapse which is consistent estima carlos eduardo right atrial pressure of >20 mmHg. There is no pericardial effusion. CONCLUSIONS -------- 1. Sinus rhythm. 2. This was a technically good study. 3. The left ventricular size is normal. 4. There is mild concentric left ventricular hypertrophy. 5. Overall left ventricular systolic function is low-normal with, an EF between 50 - 55 %. 6. The right ventricle is mildly enlarged. 7. LA is midly dilated 29-33ml/m2. 8. The right atrium is normal in size. 9. There is mild aortic valve sclerosis. 10. The mitral valve leaflets are mildly thickened. 11. Mild mitral annular calcification present. 12. Mild mitral regurgitation is present. 13. Mild tricuspid regurgitation present. 14. There is mild pulmonary hypertension. 15. The right ventricular systolic pressure, as measured by Doppler, is 44.74mmHg. 16. Trace/mild (physiologic) pulmonic regurgitation. 17. The aortic root size is normal. 18. The inferior vena cava is dilated with no significant inspiratory collapse which is consistent es timated right atrial pressure of >20 mmHg. 19. There is no pericardial effusion. IN TUBE CONVERSION TECHNICIAN: Aniya Alba RDCS
[2017-09-27 16:45] LABS: Glucose,Whole Blood 164 mg/dL (75-99)
[2017-09-27] MEDS ORDERED: LEVOFLOXACIN 500MG-D5W PMX 500 MG in DEXTROSE/WATER 1 100ML.BAG IVPB SCH (18:00)
[2017-09-27] MEDS: ATORVASTATIN 40 MG TAB PO SCH (20:38)
[2017-09-27] MEDS: MELATONIN 1 MG TAB PO SCH (20:38)
[2017-09-27 21:01] LABS: Glucose,Whole Blood 154 mg/dL (75-99)
--- NOTE | 2017-09-27 21:39 | PN ---
PROGRESS NOTE DATE OF SERVICE: 09/27/2017 PRESENTING COMPLAINT: Tired. INTERVAL HISTORY: This patient presented with acute non-Q-wave myocardial infarction with stent to the circumflex, also had pneumonia for which he is getting antibiotics. The patient also has a sacral decubitus ulcer which had a wound VAC until 2 weeks ago, is actually getting better. No drainage. Local treatment as per Dr. Garcia. The patient has been up to the bathroom. No chest pain. Breathing is much better. No lightheaded, dizziness, did tolerate a meal. REVIEW OF SYSTEMS: Done for constitutional, cardiovascular, GI, pulmonary; relevant findings as above. CURRENT MEDICATIONS: Reviewed that include: 1. IV aztreonam. 2. IV Levaquin and. 3. Vancomycin. EXAMINATION: Temperature 97.8, pulse 94, respirations 18, blood pressure 117/54, pulse ox 97% on room air. GENERAL APPEARANCE: Well-built, BMI 35.2, lying in bed, comfortable. EYES: Pupils equal. Conjunctivae normal. HEENT: External nose and ears normal. Oral cavity normal. NECK: JVD not raised. Mass not palpable. RESPIRATORY: Effort normal. LUNGS: Decreased breath sounds. CARDIOVASCULAR: First and second sounds normal. No edema. ABDOMEN: Soft, nontender. Liver, spleen not palpable. LYMPHATIC: No lymph nodes palpable in neck or axillae. PSYCHIATRY: Alert and oriented x3. Mood and affect normal. DERMATOLOGICAL: Dressing over the sacral area. INVESTIGATIONS: White count 19.2. Potassium 4.6. Accu-Cheks are noted. Troponin had peaked at 5.8. 2D echo does not show any wall motion abnormality, EF preserved. ASSESSMENT: 1. Acute non ST-elevation myocardial infarction with stenting to the circumflex. 2. Unstageable sacral decubitus ulcer which had a wound VAC until 2 weeks ago, now for topical treatment. 3. Chronic obstructive pulmonary disease in an ex-smoker. 4. Diabetes mellitus type 2, chronically on insulin. 5. Gastroesophageal reflux disease. 6. Hyperlipidemia. 7. Essential hypertension. 8. Primary osteoarthritis. 9. Sacral unstageable pressure wound. 10.Peripheral artery disease with peripheral stents. 11.Amputation of the right second toe. PLAN: Continue current medication and treatment plan. Clinically patient is doing better. Antibiotics as per Dr. Garcia. From a cardiac standpoint, patient is overall doing much better. Care was discussed with the patient and at the bedside. Questions were answered. MMODL / IJN: [id number] /
--- NOTE | 2017-09-27 22:57 | P.PN ---
Subjective Progress Note Date: 09/27/17 62-year-old male well-known to the infectious disease service from his care in the wound healing Center. He had been hospitalized at an outside facility and developed a large pressure ulceration to his coccyx that has now had remarkable improvement with local wound care, wound VAC has been transitioned to silver alginate. He also had other ulcerations that have healed. In general he's been having ongoing improvements but was not feeling well was having some increasing shortness of breath. He then developed stiffing and chest pain presented emergency center. Non-Q-wave myocardial infarction was diagnosed and he was taken to the cardiac catheterization lab and a stent was placed in his circumflex artery. He now relates he is feeling better but still feels weak. Relates to no new acute difficulties to his pressure ulceration that has been present for the last couple of months but is showing marked improvement. Denies fever chills or rigors. Shortness of breath is improved. Objective - Vital Signs Vital signs: Vital Signs Temp 99 F 09/27/17 20:00 Pulse 107 H 09/27/17 20:00 Resp 18 09/27/17 20:00 BP 111/66 09/27/17 20:00 Pulse Ox 100 09/27/17 20:00 Intake & Output 09/27/17 09/27/17 09/28/17 06:59 18:59 06:59 Intake Total 1200 Output Total 600 Balance -600 1200 Weight 114.6 kg Intake: Oral 1200 Output: Urine 600 Other: Voiding Method Urinal Toilet # Voids 2 3 - Exam 62-year-old male with obesity HEENT: Anicteric conjunctiva are pink and moist nasal mucosa grossly intact without significant lesions, there is no thrush. Neck: The neck is supple without significant lymphadenopathy or thyromegaly. Lungs: Good bilateral air entry without significant crackles or wheezing. There is no significant bronchial sounds. There is no egophony or dullness. Heart: Regular rate and rhythm with an audible S1-S2, no S3 soft S4. There is no significant murmur click or rub, PMI was nondisplaced. Abdomen: Obese, Positive bowel sounds soft and nontender without palpable masses or organomegaly. There was no guarding or rebound. Extremities: The upper extremities have symmetrical pulses. Is evidence of ecchymosis to the left anterior chest wall at the shoulder from an IV attempt. Since minimal bruising is noted to the right wrist for the IV access site for his cardiac catheterization. We'll extremities have trace edema prior ulcerations are well-healed. Neuro: Awake alert oriented to person place and time. There are no acute new gross focal sensory motor deficits. Skin: The extensive ulcerations the buttocks initial marked improvement, please see the nursing photography for its size. - Labs CBC & Chem 7: 09/26/17 05:26 09/26/17 05:26 Labs: Abnormal Lab Results - Last 24 Hours (Table) 09/26/17 09/27/17 09/27/17 Range/Units 05: 11:42 16:43 POC Glucose (mg/dL) 184 H 164 H (75-99) mg/dL Hemoglobin A1c 8.7 H (4.0-6.0) % 09/27/17 Range/Units 20:59 POC Glucose (mg/dL) 154 H (75-99) mg/dL Hemoglobin A1c (4.0-6.0) % Microbiology - Last 24 Hours (Table) 09/25/17 17:35 Blood Culture - Preliminary Blood No Growth after 48 hours 09/27/17 07:53 Gram Stain - Preliminary Sputum Laboratory Results WBC 19.2 k/uL (3.8-10.6) H 09/26/17 05:26 RBC 4.71 m/uL (4.30-5.90) 09/26/17 05:26 Hgb 12.0 gm/dL (13.0-17.5) L 09/26/17 05:26 Hct 37.1 % (39.0-53.0) L 09/26/17 05:26 MCV 78.8 fL (80.0-100.0) L 09/26/17 05:26 MCH 25.4 pg (25.0-35.0) 09/26/17 05:26 MCHC 32.2 g/dL (31.0-37.0) 09/26/17 05:26 RDW 16.5 % (11.5-15.5) H 09/26/17 05:26 Plt Count 284 k/uL (150-450) 09/26/17 05:26 Neutrophils % 85 % 09/26/17 05:26 Lymphocytes % 9 % 09/26/17 05:26 Monocytes % 5 % 09/26/17 05:26 Eosinophils % 0 % 09/26/17 05:26 Basophils % 0 % 09/26/17 05:26 Neutrophils # 16.3 k/uL (1.3-7.7) H 09/26/17 05:26 Lymphocytes # 1.6 k/uL (1.0-4.8) 09/26/17 05:26 Monocytes # 1.0 k/uL (0-1.0) 09/26/17 05:26 Eosinophils # 0.0 k/uL (0-0.7) 09/26/17 05:26 Basophils # 0.0 k/uL (0-0.2) 09/26/17 05:26 Hypochromasia Slight 09/26/17 05:26 Anisocytosis Slight 09/26/17 05:26 Microcytosis Slight 09/26/17 05:26 PT 10.2 sec (9.0-12.0) 09/25/17 17:35 INR 1.0 (<1.2) 09/25/17 17:35 APTT 26.3 sec (22.0-30.0) 09/25/17 17:35 Sodium 141 mmol/L (137-145) 09/26/17 05:26 Potassium 4.6 mmol/L (3.5-5.1) 09/26/17 05:26 Chloride 100 mmol/L (98-107) 09/26/17 05:26 Carbon Dioxide 28 mmol/L (22-30) 09/26/17 05:26 Anion Gap 13 mmol/L 09/26/17 05:26 BUN 16 mg/dL (9-20) 09/26/17 05:26 Creatinine 0.65 mg/dL (0.66-1.25) L 09/26/17 05:26 Est GFR (CKD-EPI)AfAm >90 (>60 ml/min/1.73 sqM) 09/26/17 05:26 Est GFR (CKD-EPI)NonAf >90 (>60 ml/min/1.73 sqM) 09/26/17 05:26 Glucose 205 mg/dL (74-99) H 09/26/17 05:26 POC Glucose (mg/dL) 154 mg/dL (75-99) H 09/27/17 20:59 POC Glu Bead Preparer ID Yesi Amezcua 09/27/17 20:[address] Glu mg/dL 203 09/26/17 05:26 Hemoglobin A1c 8.7 % (4.0-6.0) H 09/26/17 05:26 Plasma Lactic Acid Yury 1.7 mmol/L (0.7-2.0) 09/25/17 17:35 Calcium 9.4 mg/dL (8.4-10.2) 09/26/17 05:26 Magnesium 1.7 mg/dL (1.6-2.3) 09/26/17 05:26 Total Bilirubin 1.2 mg/dL (0.2-1.3) 09/26/17 05:26 AST 51 U/L (17-59) 09/26/17 05:26 ALT 25 U/L (21-72) 09/26/17 05:26 Alkaline Phosphatase 122 U/L (38-126) 09/26/17 05:26 Total Creatine Kinase 252 U/L (55-170) H 09/26/17 05:26 CK-MB (CK-2) 16.3 ng/mL (0.0-2.4) H* 09/26/17 05:26 CK-MB (CK-2) Rel Index 6.5 09/26/17 05:26 Troponin I 5.850 ng/mL (0.000-0.034) H* 09/26/17 05:26 NT-Pro-B Natriuret Pep 3780 pg/mL 09/25/17 17:35 Total Protein 6.3 g/dL (6.3-8.2) 09/26/17 05:26 Albumin 3.6 g/dL (3.5-5.0) 09/26/17 05:26 Urine Color Yellow 09/25/17 18:30 Urine Appearance Clear (Clear) 09/25/17 18:30 Urine pH 6.0 (5.0-8.0) 09/25/17 18:30 Ur Specific [place] 1.016 (1.001-1.035) 09/25/17 18:30 Urine Protein Negative (Negative) 09/25/17 18:30 Urine Glucose (UA) 4+ (Negative) H 09/25/17 18:30 Urine Ketones 1+ (Negative) H 09/25/17 18:30 Urine Blood Negative (Negative) 09/25/17 18:30 Urine Nitrite Negative (Negative) 09/25/17 18:30 Urine Bilirubin Negative (Negative) 09/25/17 18:30 Urine Urobilinogen <2.0 mg/dL (<2.0) 09/25/17 18:30 Ur Leukocyte Esterase Negative (Negative) 09/25/17 18:30 Vancomycin Trough 19.5 ug/mL 09/27/17 10:57 Laboratory Results WBC 19.2 k/uL (3.8-10.6) H 09/26/17 05:26 RBC 4.71 m/uL (4.30-5.90) 09/26/17 05:26 Hgb 12.0 gm/dL (13.0-17.5) L 09/26/17 05:26 Hct 37.1 % (39.0-53.0) L 09/26/17 05:26 MCV 78.8 fL (80.0-100.0) L 09/26/17 05:26 MCH 25.4 pg (25.0-35.0) 09/26/17 05:26 MCHC 32.2 g/dL (31.0-37.0) 09/26/17 05:26 RDW 16.5 % (11.5-15.5) H 09/26/17 05:26 Plt Count 284 k/uL (150-450) 09/26/17 05:26 Neutrophils % 85 % 09/26/17 05:26 Lymphocytes % 9 % 09/26/17 05:26 Monocytes % 5 % 09/26/17 05:26 Eosinophils % 0 % 09/26/17 05:26 Basophils % 0 % 09/26/17 05:26 Neutrophils # 16.3 k/uL (1.3-7.7) H 09/26/17 05:26 Lymphocytes # 1.6 k/uL (1.0-4.8) 09/26/17 05:26 Monocytes # 1.0 k/uL (0-1.0) 09/26/17 05:26 Eosinophils # 0.0 k/uL (0-0.7) 09/26/17 05:26 Basophils # 0.0 k/uL (0-0.2) 09/26/17 05:26 Hypochromasia Slight 09/26/17 05:26 Anisocytosis Slight 09/26/17 05:26 Microcytosis Slight 09/26/17 05:26 PT 10.2 sec (9.0-12.0) 09/25/17 17:35 INR 1.0 (<1.2) 09/25/17 17:35 APTT 26.3 sec (22.0-30.0) 09/25/17 17:35 Sodium 141 mmol/L (137-145) 09/26/17 05:26 Potassium 4.6 mmol/L (3.5-5.1) 09/26/17 05:26 Chloride 100 mmol/L (98-107) 09/26/17 05:26 Carbon Dioxide 28 mmol/L (22-30) 09/26/17 05:26 Anion Gap 13 mmol/L 09/26/17 05:26 BUN 16 mg/dL (9-20) 09/26/17 05:26 Creatinine 0.65 mg/dL (0.66-1.25) L 09/26/17 05:26 Est GFR (CKD-EPI)AfAm >90 (>60 ml/min/1.73 sqM) 09/26/17 05:26 Est GFR (CKD-EPI)NonAf >90 (>60 ml/min/1.73 sqM) 09/26/17 05:26 Glucose 205 mg/dL (74-99) H 09/26/17 05:26 POC Glucose (mg/dL) 154 mg/dL (75-99) H 09/27/17 20:59 POC Glu Bead Preparer SEBASTIAN Yesi Amezcua 09/27/17 20:[address] Glu mg/dL 203 09/26/17 05:26 Hemoglobin A1c 8.7 % (4.0-6.0) H 09/26/17 05:26 Plasma Lactic Acid Yury 1.7 mmol/L (0.7-2.0) 09/25/17 17:35 Calcium 9.4 mg/dL (8.4-10.2) 09/26/17 05:26 Magnesium 1.7 mg/dL (1.6-2.3) 09/26/17 05:26 Total Bilirubin 1.2 mg/dL (0.2-1.3) 09/26/17 05:26 AST 51 U/L (17-59) 09/26/17 05:26 ALT 25 U/L (21-72) 09/26/17 05:26 Alkaline Phosphatase 122 U/L (38-126) 09/26/17 05:26 Total Creatine Kinase 252 U/L (55-170) H 09/26/17 05:26 CK-MB (CK-2) 16.3 ng/mL (0.0-2.4) H* 09/26/17 05:26 CK-MB (CK-2) Rel Index 6.5 09/26/17 05:26 Troponin I 5.850 ng/mL (0.000-0.034) H* 09/26/17 05:26 NT-Pro-B Natriuret Pep 3780 pg/mL 09/25/17 17:35 Total Protein 6.3 g/dL (6.3-8.2) 09/26/17 05:26 Albumin 3.6 g/dL (3.5-5.0) 09/26/17 05:26 Urine Color Yellow 09/25/17 18:30 Urine Appearance Clear (Clear) 09/25/17 18:30 Urine pH 6.0 (5.0-8.0) 09/25/17 18:30 Ur Specific [place] 1.016 (1.001-1.035) 09/25/17 18:30 Urine Protein Negative (Negative) 09/25/17 18:30 Urine Glucose (UA) 4+ (Negative) H 09/25/17 18:30 Urine Ketones 1+ (Negative) H 09/25/17 18:30 Urine Blood Negative (Negative) 09/25/17 18:30 Urine Nitrite Negative (Negative) 09/25/17 18:30 Urine Bilirubin Negative (Negative) 09/25/17 18:30 Urine Urobilinogen <2.0 mg/dL (<2.0) 09/25/17 18:30 Ur Leukocyte Esterase Negative (Negative) 09/25/17 18:30 Vancomycin Trough 19.5 ug/mL 09/27/17 10:57 Microbiology 09/25/17 17:35 Blood Blood Culture - Preliminary No Growth after 48 hours 09/27/17 07:53 Sputum Gram Stain - Preliminary Assessment and Plan (1) Osteomyelitis Current Visit: Yes Status: Acute Code(s): M86.9 - OSTEOMYELITIS, UNSPECIFIED SNOMED Code(s): 80183850 (2) NSTEMI (non-ST elevated myocardial infarction) Current Visit: Yes Status: Acute Code(s): I21.4 - NON-ST ELEVATION (NSTEMI) MYOCARDIAL INFARCTION SNOMED Code(s): 370805735 (3) Stage IV pressure ulcer of sacral region Narrative/Plan: Pleasant 62-year-old male presents to Hospital with chest pain without evidence of a non-ST elevated myocardial infarction. Significant cardiac catheterization lab and had stenting of his circumflex artery. He is feeling better but not back to his recent baseline. Local wound care with the silver alginate will be applied to the healing ulceration to his sacrum. Apparently will be going home the near future. He is a difficulty with bleeding in the past from his anticoagulants and should be watched closely. Patient is chance importance of good control of his diabetes in adequate protein intake to help his healing. Patient had fever to admission that has now resolved. Continues to have a leukocytosis however. Fever and leukocytosis appear to be more likely related to his acute myocardial infarction. If he remains afebrile and continues to have improvement within moved toward streamlining antibiotic therapy to treat exacerbation of COPD Current Visit: Yes Status: Acute Code(s): L89.154 - PRESSURE ULCER OF SACRAL REGION, STAGE 4 SNOMED Code(s): 066218954
[2017-09-28] MEDS: VANCOMYCIN 1,750 MG in SODIUM CHLORIDE 0.9% 250 ML IVPB SCH ×2 (04:40→12:18)
[2017-09-28 06:08] LABS: Glucose,Whole Blood 74 mg/dL (75-99)
[2017-09-28] MEDS ORDERED: MORPHINE SULFATE 2 MG/ML SYRINGE IV PRN (06:40)
[2017-09-28] MEDS: INSULIN ASPART 100 UNIT/ML 1 ML 10 ML VIAL SQ SCH ×3 (06:50→17:20)
[2017-09-28 07:57] VITALS: RESP 16
[2017-09-28] MEDS: ASPIRIN 81 MG PO SCH (08:00)
[2017-09-28] MEDS: CHOLECALCIFEROL 1,000 UNIT TAB PO SCH (08:01)
[2017-09-28] MEDS: FAMOTIDINE 20 MG TAB PO SCH (08:01)
[2017-09-28] MEDS: DULoxetine HCL 30 MG CAPSULE.DR PO SCH (08:01)
[2017-09-28] MEDS: FERROUS SULFATE 325 MG TAB PO SCH (08:01)
[2017-09-28] MEDS: CLOPIDOGREL 75 MG TAB PO SCH (08:01)
[2017-09-28] MEDS: LORATADINE 10 MG TAB PO SCH (08:03)
[2017-09-28] MEDS: PANTOPRAZOLE 40 MG TABLET PO SCH (08:03)
[2017-09-28] MEDS: METOPROLOL TARTRATE 50 MG TAB PO SCH (08:03)
[2017-09-28] MEDS: INSULN ASP PRT/INSULIN ASPART 100 UNIT/ML 10 ML VIAL SQ SCH ×3 (08:10→17:20)
[2017-09-28] MEDS: PREGABALIN 75 MG CAP PO SCH (08:13)
[2017-09-28] MEDS: ALBUTEROL NEBULIZED 2.5 MG/3 ML INHALATION SCH ×3 (08:19→16:02)
[2017-09-28] MEDS: INSULIN DETEMIR 100 UNIT/ML 10 ML VIAL SQ SCH (08:19)
[2017-09-28 08:21] LABS: Glucose,Whole Blood 237 mg/dL (75-99)
[2017-09-28] MEDS ORDERED: FUROSEMIDE 10 MG/ML 4 ML VIAL IV SCH (09:00)
[2017-09-28] MEDS: LOSARTAN 25 MG TAB PO SCH (11:04)
[2017-09-28] MEDS: LACTOBACILLUS ACIDOPH & BULGAR 1 EACH PACKET PO SCH (11:04)
[2017-09-28] MEDS: ISOSORBIDE MONONITRATE ER 30 MG TAB.ER.24H PO SCH (11:04)
[2017-09-28] MEDS: AZTREONAM 2 GM in SODIUM CHLORIDE 0.9% 100 ML IVPB SCH (11:05)
[2017-09-28 12:18] LABS: Glucose,Whole Blood 248 mg/dL (75-99)
--- NOTE | 2017-09-28 14:55 | P.PN ---
Subjective Progress Note Date: 09/28/17 Principal diagnosis: Non-STEMI This is a 62-year-old gentleman with known history of diabetes, hypertension, hyperlipidemia, peripheral tear disease status post revascularization of his lower extremities. History of coronary artery disease with prior FL for which he underwent RCA stenting and PDA branch of the RCA in 2006 2010. Patient also has had multiple interventions of the circumflex performed. Patient presented to the hospital on this occasion with a non-ST elevation myocardial infarction. He was taken to the cardiac catheterization lab by Dr. Martinez where he underwent stenting of the circumflex. Patient was seen and examined this morning, denied any chest pain or difficulty in breathing. Blood pressure 126/ 60 with a heart rate in the 90s. 92% on room air. He has been encouraged today to be up ambulating in the [place], plan for possible discharge home in 24 hours if stable. 09/28/2017 Patient seen and examined this morning, denied any chest discomfort, breathing overall is stable. Awaiting PICC line placement. From cardiology's perspective , he may be able to be discharged home once cleared by primary. We will make him a follow-up appointment to see Dr. PRASAD Martinez in the office post discharge. We will discontinue the patient's aspirin and continue Xarelto 15 mg daily along with Plavix. Objective - Vital Signs Vital signs: Vital Signs Temp 97.1 F L 09/28/17 11:12 Pulse 92 09/28/17 11:58 Resp 16 09/28/17 11:12 BP 125/83 09/28/17 11:12 Pulse Ox 96 09/28/17 11:12 Intake & Output 09/27/17 09/28/17 09/28/17 18:59 06:59 18:59 Intake Total 1200 480 910 Balance 1200 480 910 Weight 118.1 kg Intake: IV 350 Aztreonam 2 gm In Sodium 100 Chloride 0.9% 100 ml @ 100 mls/hr IVPB Q12H [facility] Rx#:[id number] Vancomycin 1,750 mg In 250 Sodium Chloride 0.9% 250 ml @ 125 mls/hr IVPB Q8H [facility] Rx#:[id number] Oral 1200 480 560 Other: Voiding Method Toilet Toilet # Voids 3 1 3 - Exam PHYSICAL EXAMINATION: GENERAL: HEENT: Head is atraumatic, normocephalic. Pupils equal, round. Sclera anicteric. Conjunctiva are clear. Mucous membranes of the mouth are moist. Neck is supple. There is no elevated jugular venous pressure.] bruit is heard. HEART EXAMINATION: Heart S1, S2 normal. No murmur or gallop heard. CHEST EXAMINATION: Lungs are clear to auscultation and precussion. No chest wall tenderness is noted on palpation or with deep breathing. ABDOMEN: Soft, nontender. Bowel sounds are heard. No organomegaly noted. EXTREMITIES: 2+ peripheral pulses with no evidence of peripheral edema and no calf tenderness noted. Right radial site mildly swollen, good distal pulse, no hematoma. NEUROLOGIC patient is awake, alert and oriented -3. . - Labs CBC & Chem 7: 09/26/17 05:26 09/26/17 05:26 Labs: Abnormal Lab Results - Last 24 Hours (Table) 09/27/17 09/27/17 09/28/17 Range/Units 16:43 20:59 06:06 POC Glucose (mg/dL) 164 H 154 H 74 L (75-99) mg/dL 09/28/17 09/28/17 Range/Units 08:18 11:51 POC Glucose (mg/dL) 237 H 248 H (75-99) mg/dL Microbiology - Last 24 Hours (Table) 09/27/17 07:53 Gram Stain - Preliminary Sputum Sputum Culture - Preliminary 09/25/17 17:35 Blood Culture - Preliminary Blood No Growth after 48 hours Assessment and Plan Plan: Assessment and plan #1 non-ST elevation myocardial infarction, status post angioplasty and stenting of the circumflex artery. #2 known history of coronary artery disease with prior multivessel stenting #3 hypertension #4 hyperlipidemia # 5 diabetes #6 PAD #7 paroxysmal atrial fibrillation Plan From cardiology's perspective, patient may be able to be discharged home today. We will discontinue the aspirin and continue Plavix 75 mg daily along with xarelto 15 mg daily. Continue Lipitor 40 mg daily, Lasix 40 mg daily, Imdur 30 mg daily, losartan 25 mg daily, metoprolol 50 mg twice a day, and sublingual nitroglycerin as needed for chest pain. DNP note has been reviewed, I agree with a documented findings and plan of care. Patient was seen and examined.
[2017-09-28 15:28] VITALS: BP 122/66; TEMP 97.6
[2017-09-28 16:14] VITALS: PULSE 92
[2017-09-28 16:57] LABS: Glucose,Whole Blood 221 mg/dL (75-99)
[2017-09-28] MEDS ORDERED: RIVAROXABAN 15 MG TAB PO SCH (17:30)
--- NOTE | 2017-09-28 22:10 | P.PN ---
Subjective Progress Note Date: 09/28/17 62-year-old male well-known to the infectious disease service from his care in the wound healing Center. He had been hospitalized at an outside facility and developed a large pressure ulceration to his coccyx that has now had remarkable improvement with local wound care, wound VAC has been transitioned to silver alginate. He also had other ulcerations that have healed. In general he's been having ongoing improvements but was not feeling well was having some increasing shortness of breath. He then developed stiffing and chest pain presented emergency center. Non-Q-wave myocardial infarction was diagnosed and he was taken to the cardiac catheterization lab and a stent was placed in his circumflex artery. He now relates he is feeling better but still feels weak. Relates to no new acute difficulties to his pressure ulceration that has been present for the last couple of months but is showing marked improvement. Denies fever chills or rigors. Shortness of breath is improved. 09/28/2017 patient much improved and ready for discharge to home, does complain of some new pain in the left great toe, no new ulcer. Objective - Vital Signs Vital signs: Vital Signs Temp 97.6 F 09/28/17 15:27 Pulse 92 09/28/17 16:14 Resp 16 09/28/17 15:29 BP 122/66 09/28/17 15:27 Pulse Ox 98 09/28/17 15:27 Intake & Output 09/28/17 09/28/17 09/29/17 06:59 18:59 06:59 Intake Total 480 910 Balance 480 910 Weight 118.1 kg Intake: IV 350 Aztreonam 2 gm In Sodium 100 Chloride 0.9% 100 ml @ 100 mls/hr IVPB Q12H [facility] Rx#:[id number] Vancomycin 1,750 mg In 250 Sodium Chloride 0.9% 250 ml @ 125 mls/hr IVPB Q8H [facility] Rx#:[id number] Oral 480 560 Other: Voiding Method Toilet # Voids 1 3 - Exam 62-year-old male with obesity HEENT: Anicteric conjunctiva are pink and moist nasal mucosa grossly intact without significant lesions, there is no thrush. Neck: The neck is supple without significant lymphadenopathy or thyromegaly. Lungs: Good bilateral air entry without significant crackles or wheezing. There is no significant bronchial sounds. There is no egophony or dullness. Heart: Regular rate and rhythm with an audible S1-S2, no S3 soft S4. There is no significant murmur click or rub, PMI was nondisplaced. Abdomen: Obese, Positive bowel sounds soft and nontender without palpable masses or organomegaly. There was no guarding or rebound. Extremities: The upper extremities have symmetrical pulses. Is evidence of ecchymosis to the left anterior chest wall at the shoulder from an IV attempt. Since minimal bruising is noted to the right wrist for the IV access site for his cardiac catheterization. Lower extremities have trace edema prior ulcerations are well-healed. Is erythema and tenderness to the left great toe which is new. Neuro: Awake alert oriented to person place and time. There are no acute new gross focal sensory motor deficits. Skin: The extensive ulcerations the buttocks with marked improvement, please see the nursing photography for its size. - Labs CBC & Chem 7: 09/26/17 05:26 09/26/17 05:26 Labs: Abnormal Lab Results - Last 24 Hours (Table) 09/28/17 09/28/17 09/28/17 Range/Units 06:06 08:18 11:51 POC Glucose (mg/dL) 74 L 237 H 248 H (75-99) mg/dL 09/28/17 Range/Units 16:44 POC Glucose (mg/dL) 221 H (75-99) mg/dL Microbiology - Last 24 Hours (Table) 09/25/17 17:35 Blood Culture - Preliminary Blood No Growth after 72 hours 09/27/17 07:53 Gram Stain - Preliminary Sputum Sputum Culture - Preliminary Assessment and Plan (1) Osteomyelitis Status: Acute Code(s): M86.9 - OSTEOMYELITIS, UNSPECIFIED SNOMED Code(s): 72205148 (2) NSTEMI (non-ST elevated myocardial infarction) Status: Acute Code(s): I21.4 - NON-ST ELEVATION (NSTEMI) MYOCARDIAL INFARCTION SNOMED Code(s): 999180823 (3) Stage IV pressure ulcer of sacral region Narrative/Plan: Pleasant 62-year-old male presents to Hospital with chest pain without evidence of a non-ST elevated myocardial infarction. Significant cardiac catheterization lab and had stenting of his circumflex artery. He is feeling better but not back to his recent baseline. Local wound care with the silver alginate will be applied to the healing ulceration to his sacrum. Apparently will be going home the near future. He is a difficulty with bleeding in the past from his anticoagulants and should be watched closely. Patient is chance importance of good control of his diabetes in adequate protein intake to help his healing. Patient had fever to admission that has now resolved. Continues to have a leukocytosis however. Fever and leukocytosis appear to be more likely related to his acute myocardial infarction. If he remains afebrile and continues to have improvement within moved toward streamlining antibiotic therapy to treat exacerbation of COPD 09/28/2017 patient improved and cardiology agrees for discharge to home. Appears to have acute gout of toe, colchicine sent to pharmacy. Patient to follow up in the wound center next week. No need for antibiotics at discharge. Status: Acute Code(s): L89.154 - PRESSURE ULCER OF SACRAL REGION, STAGE 4 SNOMED Code(s): 725053735
--- NOTE | 2017-09-29 05:55 | DS ---
DISCHARGE SUMMARY DATE OF ADMISSION: September 25, 2017. DATE OF DISCHARGE: September 28, 2017. FINAL DIAGNOSES: 1. Acute non-ST elevation myocardial infarction with stent to the circumflex. 2. Unstageable sacral decubitus ulcer with a wound VAC until 2 weeks ago now for topical treatment. 3. Chronic obstructive pulmonary disease in an ex-smoker. 4. Diabetes mellitus type 2, chronically on insulin. 5. Gastroesophageal reflux disease. 6. Hyperlipidemia. 7. Essential hypertension. 8. Primary osteoarthritis. 9. Peripheral artery disease with peripheral stents. 10.History of amputation of right second toe. 11.Leukocytosis, probably from chronic sacral decubitus ulcer. HOSPITAL COURSE: This patient presented with acute ME, underwent a stent to the circumflex. The patient initially put on antibiotic for low-grade fever, but it was felt not to be significant. I discussed with Dr. Mujica today and antibiotics are to be discontinued. The patient is feeling rather well otherwise. Also cleared by Cardiology. Antibiotics have been discontinued. EXAM: Lungs fair entry. Cardiovascular 1st and second sounds normal. Sacral decubitus ulcer. Discharge planning more than 35 minutes. MEDICATIONS: 1. Iron 325 p.o. daily. 2. Melatonin 1 mg p.o. q.h.s. 3. Xanax 0.25 p.o. t.i.d. p.r.n. 4. Lipitor 40 mg q.h.s. 5. Vitamin D3 1000 units p.o. daily. 6. Pepcid 20 mg p.o. daily. 7. Lasix 40 mg p.o. daily. 8. subcu b.i.d. 9. Imdur ER 30 mg p.o. daily. 10.Claritin 10 mg p.o. daily. 11.Cozaar 25 mg p.o. daily. 12.Lopressor 50 mg p.o. b.i.d. 13.Lyrica 150 mg p.o. b.i.d. 14.ProAir 1-2 puffs q.6h p.r.n. 15.Cymbalta 30 mg p.o. b.i.d. 16.Humalog 12 units subcu with lunch, 12 units subcu with supper, 15 units subcu with breakfast. 17.Lactobacillus 1 tablet p.o. daily. 18.Omeprazole 40 mg p.o. daily. 19.Oxycodone 50 mg p.o. q.i.d. p.r.n. 20 mg b.i.d. p.r.n. 20.Plavix 75 mg p.o. daily. 21.Colchicine 0.6 mg p.o. daily 10 tablets. 22.Xarelto 50 mg p.o. with supper. FOLLOWUP: Follow up with Dr. Marycruz Martinez on October 04 2017, follow up with Dr. Naqvi in 3 days. Patient to continue to follow up with the [facility] with Dr. Mujica and sacral wound care as per Dr. Mujica. Copy to Dr. Naqvi. MMODL / IJN: [id number] /
[2017-09-29] MEDS ORDERED: FUROSEMIDE 40 MG TAB PO SCH (09:00)
== END 2017-09-28 17:26 | disposition home or self-care (01) | DRG 246 ==
LOC: EC 17:17 → 6SEL 19:49
PROVIDERS: ADMIT Hospitalist; ATTEND Hospitalist
PROC: 027035Z Dilation of Coronary Artery, One Artery with Two Drug-eluting Intraluminal Devices, Percutaneous Approach (ICD-10-PCS; principal; 2017-09-25)
PROC: B211YZZ Fluoroscopy of Multiple Coronary Arteries using Other Contrast (ICD-10-PCS; 2017-09-25)
DX: I21.4 Non-ST elevation (NSTEMI) myocardial infarction (principal); J18.9 Pneumonia, unspecified organism; A41.9 Sepsis, unspecified organism; I50.33 Acute on chronic diastolic (congestive) heart failure; M86.9 Osteomyelitis, unspecified; J44.0 Chronic obstructive pulmonary disease with (acute) lower respiratory infection; J44.1 Chronic obstructive pulmonary disease with (acute) exacerbation; L89.150 Pressure ulcer of sacral region, unstageable; E11.40 Type 2 diabetes mellitus with diabetic neuropathy, unspecified; E11.51 Type 2 diabetes mellitus with diabetic peripheral angiopathy without gangrene; I11.0 Hypertensive heart disease with heart failure; E11.69 Type 2 diabetes mellitus with other specified complication; I48.0 Paroxysmal atrial fibrillation; E78.5 Hyperlipidemia, unspecified; I25.10 Atherosclerotic heart disease of native coronary artery without angina pectoris; I25.2 Old myocardial infarction; F41.9 Anxiety disorder, unspecified; M19.91 Primary osteoarthritis, unspecified site; Y95 Nosocomial condition; K21.9 Gastro-esophageal reflux disease without esophagitis; M10.9 Gout, unspecified; L40.9 Psoriasis, unspecified; H91.90 Unspecified hearing loss, unspecified ear; E66.9 Obesity, unspecified; Z68.36 Body mass index [BMI] 36.0-36.9, adult; Z71.3 Dietary counseling and surveillance; Z79.02 Long term (current) use of antithrombotics/antiplatelets; Z79.4 Long term (current) use of insulin; Z79.01 Long term (current) use of anticoagulants; Z79.899 Other long term (current) drug therapy; Z86.718 Personal history of other venous thrombosis and embolism; Z87.01 Personal history of pneumonia (recurrent); Z86.711 Personal history of pulmonary embolism; Z86.14 Personal history of Methicillin resistant Staphylococcus aureus infection; Z86.73 Personal history of transient ischemic attack (TIA), and cerebral infarction without residual deficits; Z87.820 Personal history of traumatic brain injury; Z95.5 Presence of coronary angioplasty implant and graft; Z95.828 Presence of other vascular implants and grafts; Z89.421 Acquired absence of other right toe(s); Z86.19 Personal history of other infectious and parasitic diseases; Z87.891 Personal history of nicotine dependence; Z88.1 Allergy status to other antibiotic agents; Z88.0 Allergy status to penicillin; Z80.9 Family history of malignant neoplasm, unspecified; Z82.49 Family history of ischemic heart disease and other diseases of the circulatory system
CPT/HCPCS: 36415; 71046; 80053; 80202; 81003; 82550; 82553; 83036; 83605; 83735; 83880; 84484; 85025; 85610; 85730; 87040; 87070; 87205; 93005; 93306; 93454; 94640; 94760; 96365; 96367; 96375; 99291

== ENCOUNTER 2018-02-14 17:12 | Inpatient (IN) | payer MEDICARE, OTHER ==
[2018-02-14] MEDS ORDERED: SODIUM CHLORIDE 0.9% 1,000 ML IV STA ×2 (17:28)
[2018-02-14] MEDS ORDERED: SODIUM CHLORIDE 0.9% 500 ML 500 ML IV STA (17:28)
--- NOTE | 2018-02-14 18:16 | ED ---
Recheck HPI - General Chief Complaint: Recheck/Abnormal Lab/Rx Stated Complaint: dehydration Time Seen by Provider: 02/14/18 17:28 Source: patient, RN notes reviewed, old records reviewed Mode of arrival: wheelchair Limitations: no limitations - History of Present Illness Initial Comments: This is a 63-year-old male the ER for evaluation. Patient sent in by visiting nurse for evaluation of evaluation regarding dehydration weakness. Patient still states does not feel well, no fevers no recent travel history no known sick contacts. Patient does have recent hospitalization for C. diff, does admit to decreased appetite. No other recent changes in medications MD Complaint: other (Dehydration weakness) -: days(s) Returns Today for: other (Continued weakness and persistent weakness since hospital admission) Context: other (Abnormal physical exam) Associated Symptoms: fever, chills, malaise, nausea - Related Data Home Medications Medication Instructions Recorded Confirmed Ferrous Sulfate [Iron (65 MG 325 mg PO DAILY 04/05/17 02/14/18 Elemental)] Cholecalciferol [Vitamin D3] 1,000 unit PO DAILY 09/19/17 02/14/18 Furosemide [Lasix] 40 mg PO BID 09/19/17 02/14/18 Insulin Glargine,Hum.rec.anlog 35 unit SQ BID 09/19/17 02/14/18 [Toujeo Solostar] Isosorbide Mononitrate ER [Imdur] 30 mg PO DAILY 09/19/17 02/14/18 Losartan [Cozaar] 25 mg PO DAILY 09/19/17 02/14/18 Pregabalin [Lyrica] 150 mg PO BID 09/19/17 02/14/18 Albuterol Sulfate [Proair Hfa] 1 - 2 puff INHALATION RT-Q6H PRN 09/26/17 DULoxetine HCL [Cymbalta] 60 mg PO DAILY 09/26/17 02/14/18 Lactobacillus Acidophilus 3 tab PO DAILY 09/26/17 02/14/18 [Acidophilus] Omeprazole 40 mg PO DAILY 09/26/17 02/14/18 Insulin Lispro [humaLOG Kwikpen] 15 unit SQ AC-TID 02/14/18 02/14/18 Metoclopramide HCl [Reglan] 5 mg PO AC-TID 02/14/18 02/14/18 Metoprolol Tartrate [Lopressor] 100 mg PO BID 02/14/18 02/14/18 Tamsulosin HCl [Flomax] 0.4 mg PO DAILY 02/14/18 02/14/18 metFORMIN HCL [Glucophage] 500 mg PO BID 02/14/18 02/14/18 oxyCODONE HCL [OxyCONTIN] 40 mg PO Q12H 02/14/18 02/14/18 Previous Rx's Medication Instructions Recorded Clopidogrel [Plavix] 75 mg PO DAILY #30 tab 09/28/17 Rivaroxaban [Xarelto] 15 mg PO W/SUPPER #30 tab 09/28/17 Allopurinol [Zyloprim] 100 mg PO DAILY #30 tablet 11/15/17 Allergies Allergy/AdvReac Type Severity Reaction Status Date / Time No Known Allergies Allergy Verified 02/14/18 17:38 Review of Systems ROS Statement: Those systems with pertinent positive or pertinent negative responses have been documented in the HPI. ROS Other: All systems not noted in ROS Statement are negative. Past Medical History Past Medical History: Coronary Artery Disease (CAD), COPD, CVA/TIA, Diabetes Mellitus, Deep Vein Thrombosis (DVT), GERD/Reflux, Hyperlipidemia, Hypertension , Myocardial Infarction ([place]), Osteoarthritis (OA), Pneumonia, Pulmonary Embolus (PE), Skin Disorder Additional Past Medical History / Comment(s): fell May 2013 and hit head and had a brain bleed-from possible TIA, c-diff, myopathy, tia/cva- no effects, hx ulcer, psoriasis, pressure wound after being hospitalized for toe amputation in 2016. Last Myocardial Infarction Date:: 08/2017 History of Any Multi-Drug Resistant Organisms: C-DIFF Date of last positivie culture/infection: 01/24/18 MDRO Source:: stool Past Surgical History: Heart Catheterization With Stent, Orthopedic Surgery, Tonsillectomy Additional Past Surgical History / Comment(s): bunionectomy, amy shoulder rotator cuff, mult heart stents,, LEFT LEG ARTERY X2 STENTS. COLONOSCOPY, amptation right 2nd toe Past Anesthesia/Blood Transfusion Reactions: Motion Sickness Date of Last Stent Placement:: 2016 Past Psychological History: Anxiety Smoking Status: Former smoker Past Alcohol Use History: None Reported Past Drug Use History: None Reported - Past Family History Mother Family Medical History: Cancer Father Family Medical History: Coronary Artery Disease (CAD) General Exam Limitations: no limitations General appearance: alert, lethargic Head exam: Present: atraumatic, normocephalic, normal inspection Eye exam: Present: normal appearance, PERRL, EOMI. Absent: scleral icterus, conjunctival injection, periorbital swelling ENT exam: Present: normal exam, mucous membranes dry Neck exam: Present: normal inspection. Absent: tenderness, meningismus, lymphadenopathy Respiratory exam: Present: normal lung sounds bilaterally. Absent: respiratory distress, wheezes, rales, rhonchi, stridor Cardiovascular Exam: Present: regular rate, normal rhythm, normal heart sounds. Absent: systolic murmur, diastolic murmur, rubs, gallop, clicks GI/Abdominal exam: Present: soft, normal bowel sounds. Absent: distended, tenderness, guarding, rebound, rigid Extremities exam: Present: normal inspection, full ROM, normal capillary refill. Absent: tenderness, pedal edema, joint swelling, calf tenderness Back exam: Present: normal inspection Neurological exam: Present: alert, oriented X3, CN II-XII intact Psychiatric exam: Present: normal affect, normal mood Skin exam: Present: warm, dry, intact, normal color. Absent: rash Course Vital Signs 02/14/18 02/14/18 02/14/18 17:18 18:24 19:03 Temperature 97.7 F Pulse Rate 80 65 76 Respiratory 20 16 16 Rate Blood Pressure 87/44 142/89 O2 Sat by Pulse 99 97 98 Oximetry - Reevaluation(s) Reevaluation #1: 02/14/18 18:16 Medical records thoroughly reviewed Reevaluation #2: 02/14/18 19:43 Patient with no real significant improvement in symptoms despite IV agitation, no significant change in symptoms Medical Decision Making - Medical Decision Making 60 female the ER for evaluation of persistent weakness, recent hospitalization for C. diff, patient is increasing white count increasing weakness, will admit to rule out bacteremia, blood cultures. - Lab Data Result diagrams: 02/14/18 18:09 02/14/18 18:09 Lab Results 02/14/18 02/14/18 02/14/18 Range/Units 18:09 18:09 18:09 WBC 17.4 H (3.8-10.6) k/uL RBC 4.88 (4.30-5.90) m/uL Hgb 12.7 L (13.0-17.5) gm/dL Hct 41.4 (39.0-53.0) % MCV 84.8 (80.0-100.0) fL MCH 26.1 (25.0-35.0) pg MCHC 30.8 L (31.0-37.0) g/dL RDW 15.7 H (11.5-15.5) % Plt Count 362 (150-450) k/uL Neutrophils % 83 % Lymphocytes % 10 % Monocytes % 4 % Eosinophils % 1 % Basophils % 0 % Neutrophils # 14.5 H (1.3-7.7) k/uL Lymphocytes # 1.7 (1.0-4.8) k/uL Monocytes # 0.7 (0-1.0) k/uL Eosinophils # 0.2 (0-0.7) k/uL Basophils # 0.1 (0-0.2) k/uL Hypochromasia Slight Sodium 137 (137-145) mmol/L Potassium 4.1 (3.5-5.1) mmol/L Chloride 99 (98-107) mmol/L Carbon Dioxide 30 (22-30) mmol/L Anion Gap 8 mmol/L BUN 21 H (9-20) mg/dL Creatinine 0.88 (0.66-1.25) mg/dL Est GFR (CKD-EPI)AfAm >90 (>60 ml/min/1.73 sqM) Est GFR (CKD-EPI)NonAf >90 (>60 ml/min/1.73 sqM) Glucose 163 H (74-99) mg/dL Plasma Lactic Acid Yury (0.7-2.0) mmol/L Calcium 9.1 (8.4-10.2) mg/dL Phosphorus 3.5 (2.5-4.5) mg/dL Magnesium 1.3 L (1.6-2.3) mg/dL Total Bilirubin 0.5 (0.2-1.3) mg/dL AST 19 (17-59) U/L ALT 23 (21-72) U/L Alkaline Phosphatase 82 (38-126) U/L Total Creatine Kinase 22 L (55-170) U/L CK-MB (CK-2) 2.1 (0.0-2.4) ng/mL CK-MB (CK-2) Rel Index 9.5 Troponin I 0.013 (0.000-0.034) ng/mL Total Protein 6.9 (6.3-8.2) g/dL Albumin 3.6 (3.5-5.0) g/dL Urine Color Urine Appearance (Clear) Urine pH (5.0-8.0) Ur Specific [place] (1.001-1.035) Urine Protein (Negative) Urine Glucose (UA) (Negative) Urine Ketones (Negative) Urine Blood (Negative) Urine Nitrite (Negative) Urine Bilirubin (Negative) Urine Urobilinogen (<2.0) mg/dL Ur Leukocyte Esterase (Negative) 02/14/18 02/14/18 Range/Units 18:09 19:08 WBC (3.8-10.6) k/uL RBC (4.30-5.90) m/uL Hgb (13.0-17.5) gm/dL Hct (39.0-53.0) % MCV (80.0-100.0) fL MCH (25.0-35.0) pg MCHC (31.0-37.0) g/dL RDW (11.5-15.5) % Plt Count (150-450) k/uL Neutrophils % % Lymphocytes % % Monocytes % % Eosinophils % % Basophils % % Neutrophils # (1.3-7.7) k/uL Lymphocytes # (1.0-4.8) k/uL Monocytes # (0-1.0) k/uL Eosinophils # (0-0.7) k/uL Basophils # (0-0.2) k/uL Hypochromasia Sodium (137-145) mmol/L Potassium (3.5-5.1) mmol/L Chloride (98-107) mmol/L Carbon Dioxide (22-30) mmol/L Anion Gap mmol/L BUN (9-20) mg/dL Creatinine (0.66-1.25) mg/dL Est GFR (CKD-EPI)AfAm (>60 ml/min/1.73 sqM) Est GFR (CKD-EPI)NonAf (>60 ml/min/1.73 sqM) Glucose (74-99) mg/dL Plasma Lactic Acid Yury 1.5 (0.7-2.0) mmol/L Calcium (8.4-10.2) mg/dL Phosphorus (2.5-4.5) mg/dL Magnesium (1.6-2.3) mg/dL Total Bilirubin (0.2-1.3) mg/dL AST (17-59) U/L ALT (21-72) U/L Alkaline Phosphatase (38-126) U/L Total Creatine Kinase (55-170) U/L CK-MB (CK-2) (0.0-2.4) ng/mL CK-MB (CK-2) Rel Index Troponin I (0.000-0.034) ng/mL Total Protein (6.3-8.2) g/dL Albumin (3.5-5.0) g/dL Urine Color Light Yellow Urine Appearance Clear (Clear) Urine pH 6.5 (5.0-8.0) Ur Specific [place] 1.007 (1.001-1.035) Urine Protein Negative (Negative) Urine Glucose (UA) Negative (Negative) Urine Ketones Negative (Negative) Urine Blood Negative (Negative) Urine Nitrite Negative (Negative) Urine Bilirubin Negative (Negative) Urine Urobilinogen <2.0 (<2.0) mg/dL Ur Leukocyte Esterase Negative (Negative) - EKG Data -: EKG Interpreted by Me (EKG shows normal sinus rhythm 72, MI 174, QRS 88, QTc 481) EKG shows normal: sinus rhythm Rate: normal Disposition Clinical Impression: Weakness, Leukocytosis, Amputated toe, 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
[2018-02-14 18:38] LABS: ALT 23 U/L (21-72); AST 19 U/L (17-59); Albumin 3.6 g/dL (3.5-5.0); Alkaline Phosphatase 82 U/L (38-126); Anion Gap 8 mmol/L; Blood Urea Nitrogen 21 mg/dL (9-20); Calcium 9.1 mg/dL (8.4-10.2); Carbon Dioxide 30 mmol/L (22-30); Chloride 99 mmol/L (98-107); Glucose 163 mg/dL (74-99); Magnesium 1.3 mg/dL (1.6-2.3); Phosphorus 3.5 mg/dL (2.5-4.5); Potassium 4.1 mmol/L (3.5-5.1); Sodium 137 mmol/L (137-145); Total Bilirubin 0.5 mg/dL (0.2-1.3); Total Protein 6.9 g/dL (6.3-8.2)
[2018-02-14 18:39] LABS: Basophils # (A) 0.1 k/uL (0-0.2); Basophils % (A) 0 %; Eosinophils # (A) 0.2 k/uL (0-0.7); Eosinophils % (A) 1 %; HCT 41.4 % (39.0-53.0); HGB 12.7 gm/dL (13.0-17.5); Hypochromasia Slight; Lymphocytes # (A) 1.7 k/uL (1.0-4.8); Lymphocytes % (A) 10 %; MCH 26.1 pg (25.0-35.0); MCHC 30.8 g/dL (31.0-37.0); MCV 84.8 fL (80.0-100.0); Mean Platelet Volume 7.5; Monocytes # (A) 0.7 k/uL (0-1.0); Monocytes % (A) 4 %; Neutrophils # (A) 14.5 k/uL (1.3-7.7); Neutrophils % (A) 83 %; Platelet Count 362 k/uL (150-450); RBC 4.88 m/uL (4.30-5.90); RDW 15.7 % (11.5-15.5); WBC 17.4 k/uL (3.8-10.6)
[2018-02-14 18:59] LABS: Creatine Kinase MB 2.1 ng/mL (0.0-2.4); Troponin I 0.013 ng/mL (0.000-0.034)
[2018-02-14 19:26] LABS: Appearance,Urine Clear (Clear); Bilirubin,Urine Negative (Negative); Blood,Urine Negative (Negative); Color,Urine Light Yellow; Glucose,Urine (UA) Negative (Negative); Ketones,Urine Negative (Negative); Leukocyte Esterase,Urine Negative (Negative); Nitrite,Urine Negative (Negative); PH, Urine 6.5 (5.0-8.0); Protein,Urine Negative (Negative); Specific Gravity,Urine 1.007 (1.001-1.035); Urobilinogen,Urine <2.0 mg/dL (<2.0)
[2018-02-14] MEDS ORDERED: SODIUM CHLORIDE 0.9% 1,000 ML IV ONE (19:41)
[2018-02-14] MEDS ORDERED: PIPERACILLIN-TAZOBACTAM 3.375 GM in DEXTROSE/WATER 1 50ML.BAG IVPB STA (19:41)
[2018-02-14] MEDS ORDERED: VANCOMYCIN IV PER PHARMACY 1 EACH MISC MISCELLANE PRN (19:44)
[2018-02-14] MEDS ORDERED: MAGNESIUM OXIDE 400 MG TAB PO STA (20:14)
[2018-02-14] MEDS ORDERED: VANCOMYCIN 2,250 MG in SODIUM CHLORIDE 0.9% 500 ML 500 ML IVPB ONE (20:15)
[2018-02-14] MEDS ORDERED: IPRATROPIUM-ALBUTEROL 3 ML NEB INHALATION STA (20:29)
--- NOTE | 2018-02-14 20:47 | XR ---
EXAMINATION TYPE: XR chest 2V DATE OF EXAM: 02/14/2018 COMPARISON: 09/25/2017 HISTORY: Weakness TECHNIQUE: Frontal and lateral views of the chest are obtained. FINDINGS: Heart and mediastinum are normal. Lungs are clear. Diaphragm is normal. Bony thorax is int act. IMPRESSION: Normal chest. There is clearing of the pulmonary interstitial edema compared to old exam .
[2018-02-14] MEDS: MAGNESIUM SULFATE-D5W PMX 1 GM in DEXTROSE/WATER 1 100ML.BAG IVPB SCH ×2 (21:55→23:32)
[2018-02-14 23:23] LABS: Glucose,Whole Blood 129 mg/dL (75-99)
[2018-02-15] MEDS ORDERED: oxyCODONE ER 20 MG TAB.ER.12H PO SCH (00:30)
[2018-02-15] MEDS: PIPERACILLIN-TAZOBACTAM 3.375 GM in DEXTROSE/WATER 1 50ML.BAG IVPB SCH ×2 (05:37→19:24)
[2018-02-15] MEDS: ALBUTEROL NEBULIZED 2.5 MG/3 ML INHALATION PRN ×2 (05:46→11:48)
[2018-02-15 07:11] LABS: Glucose,Whole Blood 244 mg/dL (75-99)
[2018-02-15] MEDS: ENOXAPARIN 40 MG/0.4 ML SYRINGE SQ SCH (08:44)
[2018-02-15] MEDS: ALLOPURINOL 100 MG TAB PO SCH (08:45)
[2018-02-15] MEDS: ISOSORBIDE MONONITRATE ER 30 MG TAB.ER.24H PO SCH (08:45)
[2018-02-15] MEDS: PANTOPRAZOLE 40 MG TABLET PO SCH (08:45)
[2018-02-15] MEDS: TAMSULOSIN 0.4 MG CAP.ER.24H PO SCH (08:45)
[2018-02-15] MEDS: LOSARTAN 25 MG TAB PO SCH (08:45)
[2018-02-15] MEDS: PREGABALIN 75 MG CAP PO SCH ×2 (08:45→21:25)
[2018-02-15] MEDS: METOPROLOL TARTRATE 50 MG TAB PO SCH ×2 (08:45→21:24)
[2018-02-15] MEDS: FERROUS SULFATE 325 MG TAB PO SCH (08:45)
[2018-02-15] MEDS: CLOPIDOGREL 75 MG TAB PO SCH (08:45)
[2018-02-15] MEDS: CHOLECALCIFEROL 1,000 UNIT TAB PO SCH (08:45)
[2018-02-15] MEDS: LACTOBACILLUS ACIDOPH & BULGAR 1 EACH PACKET PO SCH (08:46)
[2018-02-15] MEDS: INSULIN ASPART 100 UNIT/ML 1 ML 10 ML VIAL SQ SCH ×7 (08:54→21:25)
[2018-02-15] MEDS ORDERED: metFORMIN 500 MG TAB PO SCH (09:00)
[2018-02-15] MEDS ORDERED: VANCOMYCIN 2,250 MG in SODIUM CHLORIDE 0.9% 500 ML 500 ML IVPB SCH (09:00)
[2018-02-15 09:07] LABS: Anion Gap 10 mmol/L; Blood Urea Nitrogen 16 mg/dL (9-20); Calcium 8.6 mg/dL (8.4-10.2); Carbon Dioxide 27 mmol/L (22-30); Chloride 103 mmol/L (98-107); Glucose 312 mg/dL (74-99); Potassium 4.2 mmol/L (3.5-5.1); Sodium 140 mmol/L (137-145)
[2018-02-15 09:25] LABS: Basophils # (A) 0.1 k/uL (0-0.2); Basophils % (A) 0 %; Eosinophils # (A) 0.3 k/uL (0-0.7); Eosinophils % (A) 2 %; HGB 11.8 gm/dL (13.0-17.5); Hypochromasia Moderate; Lymphocytes # (A) 1.4 k/uL (1.0-4.8); Lymphocytes % (A) 9 %; MCHC 30.2 g/dL (31.0-37.0); MCV 86.2 fL (80.0-100.0); Mean Platelet Volume 7.9; Monocytes # (A) 0.8 k/uL (0-1.0); Monocytes % (A) 5 %; Neutrophils # (A) 13.8 k/uL (1.3-7.7); Neutrophils % (A) 83 %; Platelet Count 280 k/uL (150-450); RBC 4.52 m/uL (4.30-5.90); RDW 15.6 % (11.5-15.5); WBC 16.5 k/uL (3.8-10.6)
[2018-02-15] MEDS: METOCLOPRAMIDE 5 MG TAB PO SCH ×3 (10:40→17:38)
[2018-02-15] MEDS: oxyCODONE ER 20 MG TAB.ER.12H PO SCH ×2 (10:43→22:24)
[2018-02-15] MEDS: DULoxetine HCL 30 MG CAPSULE.DR PO SCH (10:48)
[2018-02-15] MEDS: INSULIN DETEMIR 100 UNIT/ML 10 ML VIAL SQ SCH ×2 (10:48→21:25)
[2018-02-15 11:57] LABS: Glucose,Whole Blood 140 mg/dL (75-99)
[2018-02-15] MEDS: IOPAMIDOL-300 CONTRAST 30 ML VIAL (ORAL USE) PO PRN ×2 (13:20→14:31)
[2018-02-15 14:57] LABS: Hemoglobin A1C 7.2 % (4.0-6.0)
--- NOTE | 2018-02-15 15:40 | P.HPIM ---
History of Present Illness 63-year-old male came in because of her diarrhea patient was recently treated for C. diff is concerned about C. diff patient has some nonspecific mid abdominal pain and cramping moderate in severity nonradiating. He ordered sodium testing but the stool is not liquidy enough to run the past. Although patient does definitely have leukocytosis doesn't have any fever chills. Patient has a sacral decubitus ulcer which appear to be infected was recently treated for by infectious disease will consult infectious disease for the decubitus ulcer as of now I'll not start him on any antibiotics recently Vanco and Zosyn. Considering his diarrhea and C. diff cannot be completely ruled out I'll hold off on the antibiotic therapy for now until infectious disease evaluation. I'll obtain an abdominal CAT scan as his abdominal pain cannot be clearly explained if C. diff is not the etiology. Patient is comparing of generalized lethargy tiredness and generalized weakness Review of Systems REVIEW OF SYSTEMS: CONSTITUTIONAL: No fever, no malaise, no fatigue. HEENT: No recent visual problems or hearing problems. Denied any sore throat. CARDIOVASCULAR: No chest pain, orthopnea, PND, no palpitations, no syncope. PULMONARY: No shortness of breath, no cough, no hemoptysis. GASTROINTESTINAL: As mentioned in HPI NEUROLOGICAL: No headaches, no weakness, no numbness. HEMATOLOGICAL: Denies any bleeding or petechiae. GENITOURINARY: Denies any burning micturition, frequency, or urgency. MUSCULOSKELETAL/RHEUMATOLOGICAL: Denies any joint pain, swelling, or any muscle pain. ENDOCRINE: Denies any polyuria or polydipsia. The rest of the 14-point review of systems is negative. Past Medical History Past Medical History: Coronary Artery Disease (CAD), COPD, CVA/TIA, Diabetes Mellitus, Deep Vein Thrombosis (DVT), GERD/Reflux, Hyperlipidemia, Hypertension , Myocardial Infarction ([place]), Osteoarthritis (OA), Pneumonia, Pulmonary Embolus ([place]), Skin Disorder Additional Past Medical History / Comment(s): fell May 2013 and hit head and had a brain bleed-from possible TIA, c-diff, myopathy, tia/cva- no effects, hx ulcer, psoriasis, pressure wound after being hospitalized for toe amputation in 2016. Last Myocardial Infarction Date:: 08/2017 History of Any Multi-Drug Resistant Organisms: C-DIFF Date of last positivie culture/infection: 01/24/18 MDRO Source:: stool Past Surgical History: Heart Catheterization With Stent, Orthopedic Surgery, Tonsillectomy Additional Past Surgical History / Comment(s): bunionectomy, amy shoulder rotator cuff, mult heart stents,, LEFT LEG ARTERY X2 STENTS. COLONOSCOPY, amptation right 2nd toe Past Anesthesia/Blood Transfusion Reactions: Motion Sickness Date of Last Stent Placement:: 2016 Past Psychological History: Anxiety Additional Psychological History / Comment(s): .No tobacco use currently. No experience. Travel history. No animal exposures Smoking Status: Former smoker Past Alcohol Use History: None Reported Additional Past Alcohol Use History / Comment(s): QUIT SMOKING 1999, STARTED IN 1972 Past Drug Use History: None Reported - Past Family History Mother Family Medical History: Cancer Father Family Medical History: Coronary Artery Disease (CAD) Medications and Allergies Home Medications Medication Instructions Recorded Confirmed Type Ferrous Sulfate [Iron (65 MG 325 mg PO DAILY 04/05/17 02/14/18 History Elemental)] Cholecalciferol [Vitamin D3] 1,000 unit PO DAILY 09/19/17 02/14/18 History Furosemide [Lasix] 40 mg PO BID 09/19/17 02/14/18 History Insulin Glargine,Hum.rec.anlog 35 unit SQ BID 09/19/17 02/14/18 History [Toujeo Solostar] Isosorbide Mononitrate ER [Imdur] 30 mg PO DAILY 09/19/17 02/14/18 History Losartan [Cozaar] 25 mg PO DAILY 09/19/17 02/14/18 History Pregabalin [Lyrica] 150 mg PO BID 09/19/17 02/14/18 History Albuterol Sulfate [Proair Hfa] 1 - 2 puff INHALATION RT-Q6H PRN 09/26/17 History DULoxetine HCL [Cymbalta] 60 mg PO DAILY 09/26/17 02/14/18 History Lactobacillus Acidophilus 3 tab PO DAILY 09/26/17 02/14/18 History [Acidophilus] Omeprazole 40 mg PO DAILY 09/26/17 02/14/18 History Clopidogrel [Plavix] 75 mg PO DAILY #30 tab 09/28/17 02/14/18 Rx Rivaroxaban [Xarelto] 15 mg PO W/SUPPER #30 tab 09/28/17 02/14/18 Rx Allopurinol [Zyloprim] 100 mg PO DAILY #30 tablet 11/15/17 02/14/18 Rx Insulin Lispro [humaLOG Kwikpen] 15 unit SQ AC-TID 02/14/18 02/14/18 History Metoclopramide HCl [Reglan] 5 mg PO AC-TID 02/14/18 02/14/18 History Metoprolol Tartrate [Lopressor] 100 mg PO BID 02/14/18 02/14/18 History Tamsulosin HCl [Flomax] 0.4 mg PO DAILY 02/14/18 02/14/18 History metFORMIN HCL [Glucophage] 500 mg PO BID 02/14/18 02/14/18 History oxyCODONE HCL [OxyCONTIN] 40 mg PO Q12H 02/14/18 02/14/18 History Allergies Allergy/AdvReac Type Severity Reaction Status Date / Time No Known Allergies Allergy Verified 02/14/18 17:38 Physical Exam Vitals: Vital Signs Temp Pulse Pulse Resp BP BP Pulse Ox 02/15/18 15:24 95 18 02/15/18 11:59 72 02/15/18 11:49 72 02/15/18 08:00 95 18 02/15/18 07:00 97.3 F L 95 18 130/90 96 02/15/18 05:59 76 02/15/18 05:46 76 02/14/18 22:55 98.7 F 68 16 124/74 97 02/14/18 22:13 72 02/14/18 22:02 98.6 F 68 18 147/82 98 02/14/18 22:01 69 02/14/18 19:40 82 142/89 81 L 02/14/18 19:30 84 142/89 99 02/14/18 19:20 74 142/89 96 02/14/18 19:10 84 142/89 98 02/14/18 19:03 76 16 142/89 98 02/14/18 19:00 73 02/14/18 18:50 73 02/14/18 18:40 69 100 02/14/18 18:30 69 02/14/18 18:24 65 16 97 02/14/18 18:20 68 97 02/14/18 18:17 65 98 02/14/18 17:18 97.7 F 80 20 87/44 99 Intake and Output 02/15/18 02/15/18 02/15/18 06:59 14:59 22:59 Intake Total 1300 50 Balance 1300 50 Intake: Intake, IV Titration 1300 50 Amount Magnesium Sulfate-D5w Pmx 100 1 gm In Dextrose/Water 1 100ml.bag @ 100 mls/hr IVPB Q1H [facility] Rx#: [id number] Piperacillin-Tazobactam 3 50 .375 gm In Dextrose/Water 1 50ml.bag @ 12.5 mls/hr IVPB Q8H [facility] Rx#: [id number] Sodium Chloride 0.9% 1, 700 000 ml @ 100 mls/hr IV . Q10H [facility] Rx#:[id number] Vancomycin 2,250 mg In 500 Sodium Chloride 0.9% 500 ml 500 ml @ 167 mls/hr IVPB Q12HR [facility] Rx#: [id number] Other: Voiding Method Toilet Toilet Toilet # Voids 2 PHYSICAL EXAMINATION: GENERAL: The patient is alert and oriented x3, not in any acute distress. Well developed, well nourished. HEENT: Pupils are round and equally reacting to light. EOMI. No scleral icterus. No conjunctival pallor. Normocephalic, atraumatic. No pharyngeal erythema. No thyromegaly. CARDIOVASCULAR: S1 and S2 present. No murmurs, rubs, or gallops. PULMONARY: Chest is clear to auscultation, no wheezing or crackles. ABDOMEN: Soft, nontender, nondistended, normoactive bowel sounds. No palpable organomegaly. MUSCULOSKELETAL: No joint swelling or deformity. EXTREMITIES: No cyanosis, clubbing, or pedal edema. NEUROLOGICAL: Gross neurological examination did not reveal any focal deficits. SKIN: Sacral decubitus ulcers stage 3-4, base appear to be infected with some pus we'll obtain wound cultures Results CBC & Chem 7: 02/15/18 08:40 02/15/18 08:40 Labs: Abnormal Lab Results - Last 24 Hours (Table) 02/14/18 02/14/18 02/14/18 Range/Units 18:09 18:09 18:09 WBC 17.4 H (3.8-10.6) k/uL Hgb 12.7 L (13.0-17.5) gm/dL MCHC 30.8 L (31.0-37.0) g/dL RDW 15.7 H (11.5-15.5) % Neutrophils # 14.5 H (1.3-7.7) k/uL BUN 21 H (9-20) mg/dL Glucose 163 H (74-99) mg/dL POC Glucose (mg/dL) (75-99) mg/dL Hemoglobin A1c (4.0-6.0) % Magnesium 1.3 L (1.6-2.3) mg/dL Total Creatine Kinase 22 L (55-170) U/L 02/14/18 02/14/18 02/15/18 Range/Units 18:09 23:21 07:06 WBC (3.8-10.6) k/uL Hgb (13.0-17.5) gm/dL MCHC (31.0-37.0) g/dL RDW (11.5-15.5) % Neutrophils # (1.3-7.7) k/uL BUN (9-20) mg/dL Glucose (74-99) mg/dL POC Glucose (mg/dL) 129 H 244 H (75-99) mg/dL Hemoglobin A1c 7.2 H (4.0-6.0) % Magnesium (1.6-2.3) mg/dL Total Creatine Kinase (55-170) U/L 02/15/18 02/15/18 02/15/18 Range/Units 08:40 08:40 11:35 WBC 16.5 H (3.8-10.6) k/uL Hgb 11.8 L (13.0-17.5) gm/dL MCHC 30.2 L (31.0-37.0) g/dL RDW 15.6 H (11.5-15.5) % Neutrophils # 13.8 H (1.3-7.7) k/uL BUN (9-20) mg/dL Glucose 312 H (74-99) mg/dL POC Glucose (mg/dL) 140 H (75-99) mg/dL Hemoglobin A1c (4.0-6.0) % Magnesium (1.6-2.3) mg/dL Total Creatine Kinase (55-170) U/L Microbiology - 24 Hours (Table) 02/14/18 19:08 Urine Culture - Preliminary Urine,Voided Thrombosis Risk Factor Assmnt - Choose All That Apply Each Factor Represents 1 point: Abnormal pulmonary function (COPD), Obesity ( BMI >25) Other Risk Factors: Yes Each Risk Factor Represents 2 Points: Age 61-74 years Thrombosis Risk Factor Assessment Total Risk Factor Score: 4 Thrombosis Risk Factor Assessment Level: Moderate Risk Assessment and Plan Plan: -Abdominal pain and diarrhea: So further is no evidence of C. diff has loose stools again will obtain C. diff testing. May have viral gastroenteritis will obtain abdominal CAT scan. -Leukocytosis etiology is not clear can be infected sacral decubitus ulcer, consult infectious disease -Coronary artery disease -COPD without any acute examination -Type 2 diabetes mellitus -Hyperlipidemia -History of pain the past not presently on Xarelto -Hypertension -Diabetic peripheral neuropathy -Benign prostatic hypertrophy -Depression For above-mentioned chronic medical problems patient will be resumed and continued on appropriate home medications.
--- NOTE | 2018-02-15 16:03 | CT ---
EXAMINATION TYPE: CT abdomen pelvis w con DATE OF EXAM: 02/15/2018 COMPARISON: 02/18/2011 HISTORY: 63-year-old male Generalized abdominal pain with nausea. TECHNIQUE: Contiguous axial scanning of the abdomen and pelvis following administration of 100 ml Iso dottie 300 IV contrast. Delayed images through the kidneys and coronal/sagittal reconstructions perform ed. CT DLP: 1643 mGycm Automated exposure control for dose reduction was used. FINDINGS: Heart borderline enlarged without pericardial effusion. Coronary vessel calcifications are present. Strandy atelectasis in the lower lungs. 1.4 cm left lower lobe pulmonary nodule and 2 additional 5 mm pulmonary nodule, axial images 1, 8, and 9. No pleural effusion. There is peripheral hypodensity in the right hepatic lobe with associated capsular retraction and pun ctate calcification. Hypodensity appears to have been present on 2010 but is increased now. No other focal liver lesion or biliary ductal dilatation. Gallbladder is borderline hydropic measuring 4.0 cm wide. However, there are no surrounding inflammatory changes. Portal venous system is patent. Adrenal glands, kidneys, and mildly atrophic pancreas show no gross abdomen evaluate. Wedge defect and associated hypodensity in the peripheral aspect of the spleen. No dilated small bowel, free fluid, or free air. The appendix is thickened to 1.2 cm, unchanged from 2011, likely normal variation given the lack of a ny surrounding inflammatory changes. There is mild stool burden. Circumferential wall thickening of t he mid to distal sigmoid with mild pericolonic fat stranding. No mesenteric or retroperitoneal lymphadenopathy. Moderate to severe discogenic calcifications within the abdominal aorta and iliac arteries. Bladder urine distended. Central prostatic calcifications. No abnormal fluid collection in the pelvis or pelvic lymphadenopathy. Sacral decubitus ulcer with soft tissue thickening extending to contact the underlying posterior sacr al cortex. Some of the dorsal sacrum has been eroded, suspect chronic change. The other intact bone h ere is hypertrophied as compared to 2011 but no discrete acute erosive changes are identified. Mild d egenerative changes at the hips. Subcutaneous injections along the anterior lower abdominal wall. Mixed soft tissue and fat density lesion partially visualized measuring 4.3 cm overlying the superfic ial muscular fascia of the lateral upper left thigh. IMPRESSION: 1. CIRCUMFERENTIAL WALL THICKENING OF THE MID TO DISTAL SIGMOID WITH MILD SURROUNDING INFLAMMATORY FA T STRANDING. CORRELATE FOR NONSPECIFIC COLITIS INCLUDING INFECTIOUS, INFLAMMATORY, AND ISCHEMIC CAUSE S. 2. NEW HYPODENSITY AND WEDGE DEFECT WITHIN THE SPLEEN COMPARED TO 2011 COULD REFLECT SEQUELA OF NM IOR WEDGE INFARCT. SOME CAPSULAR RETRACTION AND HYPODENSITY IN THE PERIPHERAL RIGHT LOBE OF THE LIVER IS LARGER FROM 2011 AND COULD REPRESENT ANOTHER SITE OF NOW CHRONIC INFARCT. MODERATE TO SEVERE ATHE ROSCLEROTIC CHANGES ARE PRESENT IN THE AORTA. 3. LEFT LOWER LOBE PULMONARY NODULES MEASURING UP TO 1.[address] CHEST IS RECOMMENDED TO SURVEY THE EN TIRE LUNGS. METASTATIC DISEASE NOT EXCLUDED AT THIS TIME. 4. MIXED SOFT TISSUE AND FAT DENSITY LESION MEASURING 4.3 CM ALONG THE SUPERFICIAL FASCIA OF THE LATE RAL UPPER LEFT THIGH. UNCERTAIN IF THIS REPRESENTS POSTTRAUMATIC OR POSTINFLAMMATORY CHANGE. MORE AGG RESSIVE ETIOLOGY SUCH A LIPOSARCOMA IS NOT EXCLUDED AT THIS TIME. 5. SACRAL DECUBITUS ULCER. THERE IS EROSION OF SOME OF THE ROOF OF THE SACRAL SPINAL CANAL THAT HAS A MORE CHRONIC APPEARANCE, LIKELY SEQUELA OF PRIOR OSTEOMYELITIS. FURTHER CLINICAL CORRELATION RECOMME NDED.
[2018-02-15] MEDS: IPRATROPIUM-ALBUTEROL 3 ML NEB INHALATION PRN ×2 (16:13→20:57)
[2018-02-15 17:13] LABS: Glucose,Whole Blood 194 mg/dL (75-99)
[2018-02-15 20:31] LABS: Glucose,Whole Blood 259 mg/dL (75-99)
[2018-02-15] MEDS: RIVAROXABAN 15 MG TAB PO SCH (21:24)
[2018-02-16] MEDS: VANCOMYCIN ORAL SOLUTION 250 MG/5 ML BOTTLE PO SCH ×5 (01:25→23:56)
--- NOTE | 2018-02-16 05:59 | CONS ---
CONSULTATION DATE OF SERVICE: 02/15/2018 REASON FOR CONSULTATION: 1. Sacral wound. 2. Left big toe wound and a question of infection. HISTORY OF PRESENT ILLNESS: The patient is a 63-year-old male with a past medical history significant for chronic wound to the sacral area for which the patient has been under the care of Dr. Mujica at the wound care center. The patient recently also developed a wound to his left big toe area currently being treated with local treatment. The patient did not recall he has been on antibiotic in the recent past. The patient has been sent to the hospital by visiting nurse for evaluation of dehydration and weakness. The patient apparently has been feeling weak with no energy. No fever. No chills. The patient denies having any nausea, no vomiting. No abdominal pain or any diarrhea. Subsequently the patient has been admitted to the hospital and Infectious Disease was requested to see the patient regarding his sacral as well as the big toe wound. The patient denies any pain into the sacral or the left big toe wound area. Currently with no swelling and redness or any significant drainage and no diarrhea. REVIEW OF SYSTEMS: CONSTITUTIONAL: Positive for weakness. No high-grade fever. EYES: No complaint. ENT: No complaint. RESPIRATORY: No complaint. CARDIOVASCULAR: No complaint. GENITOURINARY: No complaint. GASTROINTESTINAL: No complaint. MUSCULOSKELETAL: As per HPI. INTEGUMENTARY: As per HPI. PSYCHOLOGICAL: No complaint. ENDOCRINE: No complaint. NEUROLOGIC: No complaint. PAST MEDICAL HISTORY: Coronary artery disease, COPD, CVA, TIA, diabetes mellitus, DVT, gastroesophageal reflux disease, hypertension, hyperlipidemia, DC, osteoarthritis, pneumonia, pulmonary embolism, history of C difficile colitis. PAST SURGICAL HISTORY: PTCA with stent, tonsillectomy, bunionectomy, bilateral shoulder rotator cuff repair, colonoscopy, and right second toe amputation. SOCIAL HISTORY: Remote history of smoking. No drinking or drug use. FAMILY HISTORY: Father with history of coronary artery disease. ALLERGIES: No known drug allergies. MEDICATIONS: Medications currently include the patient is on Ventolin, DuoNeb, Zyloprim, vitamin D3, Plavix, Cymbalta, Lovenox, iron sulfate, NovoLog, Levemir, Imdur, Lactinex, Cozaar, Reglan, Lopressor, Protonix, Lyrica, Xarelto, Flomax. PHYSICAL EXAMINATION: On examination, blood pressure is 142/69 with a pulse of 91, temperature 98.1. He is 100% on room air. General description is a middle-aged male lying in bed in no distress. No tachypnea or accessory muscle of respiration use. HEENT examination shows no pallor or scleral icterus. Oral mucous membrane is dry. No pharyngeal erythema or thrush. NECK: Trachea central. No thyromegaly. LUNGS: Unlabored breathing, clear to auscultation anteriorly. No wheeze or crackle. HEART: S1, S2. Regular rate and rhythm. No added sounds. ABDOMEN: Soft, no tenderness. No guarding or rigidity. EXTREMITIES: No edema of feet. Examination left big toe plantar aspect he did have a wound currently with very minimal slough tissue. No surrounding swelling, redness or any drainage. The sacral wound also has minimal amount of slough tissue, but no cellulitis or any drainage. NEUROLOGICALLY: The patient is awake, alert, oriented x3. Mood and affect normal. LABS: The patient did have a CT of the abdomen and pelvis they did show circumferential wall thickening of the mid to distal sigmoid with mild surrounding inflammatory fat stranding; new hyperdensity and wedge defect within the spleen as compared to 2011 could represent sequela of prior wedge defect; left lower lobe pulmonary nodule measuring up to 1.4 cm. DIAGNOSTIC IMPRESSION AND PLAN: 1. Patient presented to the hospital with generalized weakness in a patient who do have a chronic nonhealing wound to his sacrum as well as the left big toe area currently with no evidence of any cellulitis. Recommend local wound care only. 2. The [place] [address]. The patient now has abnormal CT suspicious for a possible colitis in a patient who has been in and out of the hospital antibiotic with concern for possible Clostridium difficile as he did have positive Clostridium difficile on 02/03/2018. PLAN: 1. We will start the patient on vancomycin 250 p.o. q.6 hours for possible C difficile colitis. 2. Obtain stool for C difficile. 3. Local wound care to this sacral as well as the left big toe wound with Medihoney to be changed daily. 4. We will follow up on clinical condition and culture to further adjust medication if needed. Thank you for this consultation. Will follow this patient along with you. MMODL / IJN: [id number] /
[2018-02-16 07:17] LABS: Glucose,Whole Blood 196 mg/dL (75-99)
[2018-02-16] MEDS: ALBUTEROL NEBULIZED 2.5 MG/3 ML INHALATION PRN ×3 (08:03→20:14)
[2018-02-16 08:47] LABS: HCT 36.4 % (39.0-53.0); HGB 11.2 gm/dL (13.0-17.5); Hypochromasia Slight; MCH 26.3 pg (25.0-35.0); MCHC 30.8 g/dL (31.0-37.0); MCV 85.3 fL (80.0-100.0); Platelet Count 268 k/uL (150-450); RBC 4.26 m/uL (4.30-5.90); RDW 15.7 % (11.5-15.5); WBC 10.9 k/uL (3.8-10.6)
[2018-02-16 09:02] LABS: Anion Gap 5 mmol/L; Blood Urea Nitrogen 12 mg/dL (9-20); Carbon Dioxide 28 mmol/L (22-30); Chloride 106 mmol/L (98-107); Glucose 190 mg/dL (74-99); Potassium 4.2 mmol/L (3.5-5.1); Sodium 139 mmol/L (137-145)
[2018-02-16] MEDS: INSULIN ASPART 100 UNIT/ML 1 ML 10 ML VIAL SQ SCH ×7 (09:27→22:14)
[2018-02-16] MEDS: ISOSORBIDE MONONITRATE ER 30 MG TAB.ER.24H PO SCH (09:28)
[2018-02-16] MEDS: CHOLECALCIFEROL 1,000 UNIT TAB PO SCH (09:28)
[2018-02-16] MEDS: CLOPIDOGREL 75 MG TAB PO SCH (09:28)
[2018-02-16] MEDS: METOPROLOL TARTRATE 50 MG TAB PO SCH ×2 (09:28→22:15)
[2018-02-16] MEDS: LOSARTAN 25 MG TAB PO SCH (09:28)
[2018-02-16] MEDS: FERROUS SULFATE 325 MG TAB PO SCH (09:28)
[2018-02-16] MEDS: LACTOBACILLUS ACIDOPH & BULGAR 1 EACH PACKET PO SCH (09:28)
[2018-02-16] MEDS: ALLOPURINOL 100 MG TAB PO SCH (09:28)
[2018-02-16] MEDS: INSULIN DETEMIR 100 UNIT/ML 10 ML VIAL SQ SCH ×2 (09:28→22:14)
[2018-02-16] MEDS: DULoxetine HCL 30 MG CAPSULE.DR PO SCH (09:29)
[2018-02-16] MEDS: PANTOPRAZOLE 40 MG TABLET PO SCH (09:29)
[2018-02-16] MEDS: PREGABALIN 75 MG CAP PO SCH ×2 (09:29→22:15)
[2018-02-16] MEDS: TAMSULOSIN 0.4 MG CAP.ER.24H PO SCH (09:29)
[2018-02-16] MEDS: METOCLOPRAMIDE 5 MG TAB PO SCH ×2 (09:31→15:13)
[2018-02-16] MEDS: ENOXAPARIN 40 MG/0.4 ML SYRINGE SQ SCH (09:31)
[2018-02-16] MEDS: IPRATROPIUM-ALBUTEROL 3 ML NEB INHALATION PRN (11:13)
[2018-02-16] MEDS: oxyCODONE ER 20 MG TAB.ER.12H PO SCH ×2 (11:53→23:52)
[2018-02-16 12:00] LABS: Glucose,Whole Blood 136 mg/dL (75-99)
--- NOTE | 2018-02-16 12:53 | CDI ---
Last Revision, April 2017 Documentation Clarification Form Date: 02/16/2018 12:47:41 PM From: Monserrat Hernandez RN, CCDS Admit Date: 02/14/2018 7:41:00 PM Patient Name: Jeremiah Pedroza Visit Number: [id number] ATTENTION: The Clinical Documentation Specialists (CDI) and [facility] Coding Staff appreciate your assistance in clarifying documentation. Please respond to the clarification below the line at the bottom and electronically sign. The CDI & [facility] Coding staff will review the response and follow-up if needed. Please note: Queries are made part of the Legal Health Record. If you have any questions, please contact the author of this message via ITS. Apryl Alicea MD A declining hemoglobin and hematocrit lacks specificity to accurately reflect your patients severity of condition and clarification is needed. History/Risk Factors: CAD, COPD, DM, DVT, TN, PE Clinical indicators: Hemoglobin: 12.7/11.8/11.2 Hematocrit: 41.4/39/36.4 Treatment: 1.5L IVF bolus followed by 100 cc/hr Feosol 325 mg PO QD In order to capture the severity of condition, please clarify the type of anemia and etiology if known: Acute blood loss anemia Acute on chronic blood loss anemia Chronic blood loss anemia Iron deficiency anemia Drug induced anemia Nutritional anemia Anemia of chronic disease Unable to determine Other, please specify Please continue to document in your progress notes and discharge summary in order to capture severity of illness and risk of mortality. Include clinical findings that support your diagnosis. Unable to determine MTDD
[2018-02-16] MEDS: SODIUM CHLORIDE 0.9% 1,000 ML IV SCH (15:38)
[2018-02-16 17:04] LABS: Glucose,Whole Blood 139 mg/dL (75-99)
--- NOTE | 2018-02-16 17:27 | PN ---
PROGRESS NOTE DATE OF SERVICE: 02/16/2018 This 63-year-old gentleman admitted with left big toe wound infection and as well as sacral wound is being closely monitored at this time. The patient was started on vancomycin for C difficile colitis. Dr. Garcia is following the patient closely. The most recent white count is 10.9. PAST MEDICAL: Reviewed. REVIEW OF SYMPTOMS: CARDIOVASCULAR: No angina or palpitations. RESPIRATION: As mentioned earlier. GI as mentioned earlier. no dysuria. NERVOUS SYSTEM as mentioned earlier. CURRENT MEDICATIONS ARE: Reviewed and include: 1. Ventolin 2.5 q.i.d. 2. DuoNeb q.i.d. and p.r.n. 3. Zyloprim. 4. Vitamin D3. 5. Plavix 75 mg. 6. Cymbalta 60 mg daily. 7. Lovenox 40 mg subcu daily. 8. Iron sulfate 320 mg daily. 9. NovoLog 15 units subcu . 10.Imdur 30 mg daily. 11.Lactinex 3 tablets p.o. daily. 12.Cozaar 25 mg daily. 13.Lopressor 100 mg p.o. b.i.d. 14.OxyContin. 15.Protonix. 16.Lyrica. 17.Xarelto. 18.Flomax. PHYSICAL EXAM: GENERAL: Patient is alert, oriented x three. VITAL SIGNS: Pulse 74, blood pressure 110/70, respiration 17, temperature 98.2, pulse ox 94% on room air. HEENT: Conjunctivae normal. Oral mucosa moist. NECK is no jugular venous distention. No carotid bruit. No lymph node enlargement. CARDIOVASCULAR: S1, S2 muffled. RESPIRATORY: Breath sounds diminished in the bases. A few scattered rhonchi and crackles. ABDOMEN: Soft, nontender. LEGS are no edema, no swelling. NERVOUS SYSTEM: Higher functions as mentioned earlier. Moves all four extremities. No focal deficits. LYMPHATICS: No lymph nodes palpable in the neck, axillae or groin. SKIN: No ulcer, rash or bleeding. LAB STUDIES: WBC ntd hemoglobin 11.2. ASSESSMENT: 1. Abdominal pain, diarrhea, possible acute C difficile colitis and possible gastroenteritis and leukocytosis. 2. Coronary artery disease. 3. Chronic obstructive pulmonary disease. 4. Diabetes mellitus type 2. 5. Hyperlipidemia. 6. History of hypertension. 7. Diabetic peripheral neuropathy. 8. Benign prostatic hypertrophy. 9. Depression. 10.History of deep vein thrombosis. 11.History of pulmonary embolism. 12.History of brain bleed. RECOMMENDATIONS AND DISCUSSION: In this 63-year-old gentleman who presented with multiple complex medical issues , we will monitor the patient closely, continue the current medications, management and symptomatic treatment. Otherwise, prognosis guarded. Further recommendations to follow. JANNETTE / MIHAIN: [id number] / SHAWN
[2018-02-16] MEDS: RIVAROXABAN 15 MG TAB PO SCH (17:45)
[2018-02-16 20:54] LABS: Glucose,Whole Blood 172 mg/dL (75-99)
--- NOTE | 2018-02-16 23:00 | PN ---
PROGRESS NOTE DATE OF SERVICE: 02/16/2018. REASON FOR FOLLOW UP: 1. Stage II sacral wound. 2. Left great toe. 3. Colitis, possible C difficile. INTERVAL HISTORY: The patient is currently afebrile. He is breathing comfortably. Still having loose stools but no blood or mucus in it. No significant abdominal pain. Denies any chest pain or shortness of breath. pain in the back of the left big toe area. EXAMINATION: Blood pressure is 111/70 with a pulse of 74, temperature 98.4. He is 94% on room air. General description is a middle-aged male lying in bed in no distress. Respiratory system unlabored breathing. Clear to auscultation anteriorly. Heart S1, S2. Regular rate and rhythm. Abdomen soft. No tenderness. Wounds are currently dressed up. No obvious drainage on the dressing. LABS: White count 10.8 with a BUN of 12, creatinine 0.59. Stool for C difficile was requested, unfortunately not sent. DIAGNOSTIC IMPRESSION/PLAN: 1. Patient with diarrhea with evidence of colitis on CT, likely secondary to C difficile colitis. His C difficile was positive 02/03/2018. C. dif requested on this admission, unfortunately, not done. The patient clinically responding to the p.o. vancomycin to continue with diarrhea persistent, Questran will be added. 2. Patient with a stage II sacral wound. Local wound care with Medihoney. 3. Left big toe wound, local wound care with Medihoney. 4. Continue supportive care. MMODL / IJN: [id number] /
[2018-02-17 02:46] LABS: Glucose,Whole Blood 64 mg/dL (75-99)
[2018-02-17 03:10] LABS: Glucose,Whole Blood 73 mg/dL (75-99)
[2018-02-17] MEDS: SODIUM CHLORIDE 0.9% 1,000 ML IV SCH ×2 (04:17→17:51)
[2018-02-17] MEDS: VANCOMYCIN ORAL SOLUTION 250 MG/5 ML BOTTLE PO SCH ×3 (06:13→17:49)
[2018-02-17 07:47] LABS: Glucose,Whole Blood 87 mg/dL (75-99)
[2018-02-17] MEDS: INSULIN ASPART 100 UNIT/ML 1 ML 10 ML VIAL SQ SCH ×7 (08:16→21:15)
[2018-02-17] MEDS: METOPROLOL TARTRATE 50 MG TAB PO SCH ×2 (08:30→21:14)
[2018-02-17] MEDS: INSULIN DETEMIR 100 UNIT/ML 10 ML VIAL SQ SCH (08:30)
[2018-02-17] MEDS: CLOPIDOGREL 75 MG TAB PO SCH (08:31)
[2018-02-17] MEDS: TAMSULOSIN 0.4 MG CAP.ER.24H PO SCH (08:31)
[2018-02-17] MEDS: LOSARTAN 25 MG TAB PO SCH (08:31)
[2018-02-17] MEDS: ALLOPURINOL 100 MG TAB PO SCH (08:31)
[2018-02-17] MEDS: FERROUS SULFATE 325 MG TAB PO SCH (08:31)
[2018-02-17] MEDS: CHOLECALCIFEROL 1,000 UNIT TAB PO SCH (08:31)
[2018-02-17] MEDS: PANTOPRAZOLE 40 MG TABLET PO SCH (08:32)
[2018-02-17] MEDS: DULoxetine HCL 30 MG CAPSULE.DR PO SCH (08:32)
[2018-02-17] MEDS: ISOSORBIDE MONONITRATE ER 30 MG TAB.ER.24H PO SCH (08:32)
[2018-02-17] MEDS: PREGABALIN 75 MG CAP PO SCH ×2 (08:32→21:14)
[2018-02-17] MEDS: LACTOBACILLUS ACIDOPH & BULGAR 1 EACH PACKET PO SCH (08:33)
[2018-02-17] MEDS: ENOXAPARIN 40 MG/0.4 ML SYRINGE SQ SCH (08:33)
[2018-02-17 08:54] VITALS: BMI 35.9
[2018-02-17 12:27] LABS: Glucose,Whole Blood 97 mg/dL (75-99)
[2018-02-17] MEDS: oxyCODONE ER 20 MG TAB.ER.12H PO SCH ×2 (12:50→23:30)
[2018-02-17 17:30] LABS: Glucose,Whole Blood 208 mg/dL (75-99)
[2018-02-17] MEDS: RIVAROXABAN 15 MG TAB PO SCH (17:49)
--- NOTE | 2018-02-17 19:07 | PN ---
PROGRESS NOTE DATE OF SERVICE: 02/17/2018 63-year-old gentleman was admitted with abdominal pain, also had diarrhea. Patient had colitis in the CT scan. The patient thought to have C difficile colitis but C difficile was negative, but however the patient marked symptomatic improvement. Stage II sacral decubitus also noted. PAST MEDICAL HISTORY: Reviewed. REVIEW OF SYSTEMS: CARDIOVASCULAR: No angina. RESPIRATORY: As mentioned earlier. GI: As mentioned earlier. : No dysuria. NERVOUS SYSTEM: No numbness, weakness. MEDICATIONS: Reviewed and include: 1. Ventolin 2.5 q.i.d. and p.r.n. 2. DuoNeb q.i.d. and p.r.n. 3. Zyloprim 100 mg daily. 4. Vitamin D 3000 daily. 5. Plavix 75 mg p.o. daily. 6. Cymbalta 60 mg daily. 7. Lovenox 40 mg subcu daily. 8. Iron sulfate 325 mg daily. 9. NovoLog scale. 10.Levemir 17 units subcu daily. 11.Imdur 30 mg p.o. daily. 12.Cozaar 25 mg p.o. daily. 14.OxyContin 40 mg p.o. b.i.d. 15.Protonix 40 mg b.i.d. 16.Lyrica 150 mg p.o. b.i.d. 17.Xarelto 50 mg with supper. 18.Flomax 0.4. 19.Vancomycin 250 mg p.o. q.8. PHYSICAL EXAMINATION: Alert and oriented x3. Pulse 88, blood pressure 170/101, respiration 18, temperature 98.2, pulse ox 97% on room air. HEENT: Conjunctivae normal. Oral mucosa moist. Neck is no jugular venous distention. No carotid bruit. No lymph node enlargement. CARDIOVASCULAR: S1, S2. RESPIRATORY: Breath sounds diminished in the bases. A few scattered rhonchi and crackles. ABDOMEN: Soft, nontender. LEGS: No edema. NERVOUS SYSTEM: No focal deficits. LABS: WBC 10.9, hemoglobin 11.2. ASSESSMENT: 1. Abdominal pain, diarrhea, possible acute colitis with possible acute gastritis. Leukocytosis and C diff was negative. 2. History of recent previous C difficile colitis. 3. Coronary artery disease. 4. Chronic obstructive pulmonary disease. 5. Diabetes mellitus type 2. 6. Hyperlipidemia. 7. Hypertension. 8. Diabetic peripheral neuropathy. 9. Benign prostatic hypertrophy. 10.Depression. 11.History of deep vein thrombosis. 12.History of pulmonary embolus. 13.History of brain bleed. RECOMMENDATIONS AND DISCUSSION: I recommend to continue current management and symptomatic treatment. At this time I will recommend repeat labs. Continue the current symptomatic treatment. Otherwise advance diet. The blood sugar has been low. We will cut down the dose of Lantus to half. See orders for details. Guarded prognosis. Further recommendations to follow. MMODL / IJN: [id number] / MTDD
[2018-02-17] MEDS: IPRATROPIUM-ALBUTEROL 3 ML NEB INHALATION PRN (20:40)
[2018-02-17 20:56] LABS: Glucose,Whole Blood 146 mg/dL (75-99)
[2018-02-17] MEDS ORDERED: INSULIN DETEMIR 100 UNIT/ML 10 ML VIAL SQ SCH (21:00)
--- NOTE | 2018-02-17 21:34 | P.CONS ---
History of Present Illness - Reason for Consult Consult date: 02/17/18 Diarrhea, history of Clostridium difficile colitis Requesting physician: Willie E Sheet - History of Present Illness The patient is a pleasant 63-year-old male with a medical history significant for coronary artery disease status post stent placement, COPD, diabetes mellitus , DVT, GERD, hyperlipidemia, hypertension, osteoarthritis and a recent history significant for a decubitus sacral ulcer for which she follows up with wound care and was treated with antibiotics as well as illustrating the cecal colitis which was treated with oral vancomycin. The patient presents with continued diarrhea for the past 2 weeks, which occurred in the setting of oral vancomycin per the patient. He reports innumerable bowel movements which were occurring up until yesterday when the frequency of the bowel movements decreased. He reports only 2-3 loose bowel movements today. The patient had associated lower abdominal pain and cramping below the umbilicus. On presentation he was noted to have a WBC count of 17 which is trended down to 10.9 and a computed tomography scan of the abdomen which showed wall thickening of the mid to distal sigmoid colon without abscess or perforation. Symptomatically he is doing better with decreased bowel movements has noted and resolution of his pain. Review of Systems REVIEW OF SYSTEMS: CONSTITUTIONAL: Denies any fevers, chills, but does note decreased weight on a fluid restricted diet and some weakness and fatigue prior to presentation. CARDIOVASCULAR: Denies any chest pain, palpitations high or low blood pressures RESPIRATORY: Denies any shortness of breath, hemoptysis or cough. GENITOURINARY: No dysuria or hematuria. MUSCULOSKELETAL: No weakness reported. SKIN: Denies any new rashes or lesions, jaundice or pallor. Has received treatment for a large sacral decubitus ulcer. PSYCHIATRIC: Denies any depression or anxiety. NEUROLOGY: Denies headache, denies any new focal deficits. EARS/NOSE/THROAT: No recent hearing change, congestion, nasal discharge or sore throat. EYES: No pain in eyes, discharge or change in vision. GASTROINTESTINAL: As per HPI. Past Medical History Past Medical History: Coronary Artery Disease (CAD), COPD, CVA/TIA, Diabetes Mellitus, Deep Vein Thrombosis (DVT), GERD/Reflux, Hyperlipidemia, Hypertension , Myocardial Infarction (GA), Osteoarthritis (OA), Pneumonia, Pulmonary Embolus (PE), Skin Disorder Additional Past Medical History / Comment(s): fell May 2013 and hit head and had a brain bleed-from possible TIA, c-diff, myopathy, tia/cva- no effects, hx ulcer, psoriasis, pressure wound after being hospitalized for toe amputation in 2016. Last Myocardial Infarction Date:: 08/2017 History of Any Multi-Drug Resistant Organisms: C-DIFF Year Discovered:: 01/24/18 MDRO Source:: stool Past Surgical History: Heart Catheterization With Stent, Orthopedic Surgery, Tonsillectomy Additional Past Surgical History / Comment(s): bunionectomy, amy shoulder rotator cuff, mult heart stents,, LEFT LEG ARTERY X2 STENTS. COLONOSCOPY, amptation right 2nd toe Past Anesthesia/Blood Transfusion Reactions: Motion Sickness Date of Last Stent Placement:: 2016 Past Psychological History: Anxiety Additional Psychological History / Comment(s): .No tobacco use currently. No experience. Travel history. No animal exposures Smoking Status: Former smoker Past Alcohol Use History: None Reported Additional Past Alcohol Use History / Comment(s): QUIT SMOKING 1999, STARTED IN 1972 Past Drug Use History: None Reported - Past Family History Mother Family Medical History: Cancer Father Family Medical History: Coronary Artery Disease (CAD) Medications and Allergies Home Medications Medication Instructions Recorded Confirmed Type Ferrous Sulfate [Iron (65 MG 325 mg PO DAILY 04/05/17 02/14/18 History Elemental)] Cholecalciferol [Vitamin D3] 1,000 unit PO DAILY 09/19/17 02/14/18 History Furosemide [Lasix] 40 mg PO BID 09/19/17 02/14/18 History Insulin Glargine,Hum.rec.anlog 35 unit SQ BID 09/19/17 02/14/18 History [Toujeo Solostar] Isosorbide Mononitrate ER [Imdur] 30 mg PO DAILY 09/19/17 02/14/18 History Losartan [Cozaar] 25 mg PO DAILY 09/19/17 02/14/18 History Pregabalin [Lyrica] 150 mg PO BID 09/19/17 02/14/18 History Albuterol Sulfate [Proair Hfa] 1 - 2 puff INHALATION RT-Q6H PRN 09/26/17 History DULoxetine HCL [Cymbalta] 60 mg PO DAILY 09/26/17 02/14/18 History Lactobacillus Acidophilus 3 tab PO DAILY 09/26/17 02/14/18 History [Acidophilus] Omeprazole 40 mg PO DAILY 09/26/17 02/14/18 History Clopidogrel [Plavix] 75 mg PO DAILY #30 tab 09/28/17 02/14/18 Rx Rivaroxaban [Xarelto] 15 mg PO W/SUPPER #30 tab 09/28/17 02/14/18 Rx Allopurinol [Zyloprim] 100 mg PO DAILY #30 tablet 11/15/17 02/14/18 Rx Insulin Lispro [humaLOG Kwikpen] 15 unit SQ AC-TID 02/14/18 02/14/18 History Metoclopramide HCl [Reglan] 5 mg PO AC-TID 02/14/18 02/14/18 History Metoprolol Tartrate [Lopressor] 100 mg PO BID 02/14/18 02/14/18 History Tamsulosin HCl [Flomax] 0.4 mg PO DAILY 02/14/18 02/14/18 History metFORMIN HCL [Glucophage] 500 mg PO BID 02/14/18 02/14/18 History oxyCODONE HCL [OxyCONTIN] 40 mg PO Q12H 02/14/18 02/14/18 History Allergies Allergy/AdvReac Type Severity Reaction Status Date / Time No Known Allergies Allergy Verified 02/14/18 17:38 Physical Exam Vitals: Vital Signs Temp Pulse Pulse Resp BP Pulse Ox 02/17/18 20:50 88 18 02/17/18 20:40 84 16 02/17/18 15:00 97.2 F L 99 16 124/69 91 L 02/17/18 08:00 18 02/17/18 07:00 98.3 F 88 18 176/101 02/17/18 03:00 16 02/17/18 00:29 97.9 F 86 16 163/87 97 02/17/18 00:04 18 02/16/18 21:22 97.6 F 84 18 136/99 99 Intake and Output 02/17/18 02/17/18 02/17/18 06:59 14:59 22:59 Intake Total 600 1040 222 Balance 600 1040 222 Intake: Intake, IV Titration 600 Amount Sodium Chloride 0.9% 1, 600 000 ml @ 75 mls/hr IV . [id number] [facility] Rx#:[id number] Oral 1040 222 Other: Voiding Method Toilet # Voids 2 1 # Bowel Movements 0 Weight 116.7 kg 116.7 kg On physical examination, patient appears comfortable in no apparent distress. HEAD: Normocephalic, atraumatic. EYES: No scleral icterus. No conjunctival injection. MOUTH: No lesions, tongue midline. NECK: Trachea midline, no gross abnormalities. CHEST: Decreased air entry in all lung amato with no wheezing appreciated. HEART: Lower extremity edema is minimal and no rubs heard or gallop's on cardiac auscultation. ABDOMEN: Soft, obese. Bowel sounds are positive. No organomegaly. No guarding or rigidity. EXTREMITIES: Minimal pedal edema. SKIN: No rashes, no jaundice. NEUROLOGIC: Alert and oriented x3. No focal deficits. Results CBC & Chem 7: 02/16/18 07:59 02/16/18 07:59 Labs: Abnormal Lab Results - Last 24 Hours (Table) 02/17/18 02/17/18 02/17/18 Range/Units 02:32 02:59 17:18 POC Glucose (mg/dL) 64 L 73 L 208 H (75-99) mg/dL 02/17/18 Range/Units 20:44 POC Glucose (mg/dL) 146 H (75-99) mg/dL Microbiology - Last 24 Hours (Table) 02/14/18 20:21 Blood Culture - Preliminary Blood No Growth after [address] scan - abdomen: report reviewed (Computed tomography scan of the abdomen suggestive of wall thickening in the mid to distal sigmoid colon.) Assessment and Plan (1) Abnormal CT scan, sigmoid colon Narrative/Plan: CT abdomen findings of mid to distal thickening of the sigmoid colon. In the setting of recent Clostridium difficile infection unclear if this is related to infectious process, however it should be noted that EIA for Clostridium difficile was negative on this admission. This may also be related to an ischemic process in the setting of coronary artery disease or other etiology. Overall symptoms are improved at this time. Pain has resolved with decreased frequency of bowel movements. Current Visit: Yes Status: Acute Code(s): R93.3 - ABNORMAL FINDINGS ON DX IMAGING OF PRT DIGESTIVE TRACT SNOMED Code(s): 252927991 (2) Diarrhea Narrative/Plan: As above. Current Visit: Yes Status: Acute Code(s): R19.7 - DIARRHEA, UNSPECIFIED SNOMED Code(s): 09577755 (3) C. difficile colitis Narrative/Plan: As above. Current Visit: No Status: Acute Code(s): A04.72 - ENTEROCOLITIS D/T CLOSTRIDIUM DIFFICILE, NOT SPCF RECUR SNOMED Code(s): 671784566 Plan: Okay for diet Continue to monitor CBC and transfuse PRBCs as needed Continue to monitor for signs of infection, tachycardia, leukocytosis, fever Would continue vancomycin orally at this time, unclear if diarrhea is related to Clostridium difficile (negative EIA on this presentation), other infectious process, ischemia or other etiology such as medication effect Await recommendations from infectious disease We'll need follow-up with colonoscopy as an outpatient, patient reports having an appointment to see gastroenterology next week which he will have removed as a complex with appointments with infectious disease and cardiology Continue iron supplementation Continue probiotic Thank you for allowing us to participate in the care of this patient, we will continue to follow
[2018-02-18] MEDS: VANCOMYCIN ORAL SOLUTION 250 MG/5 ML BOTTLE PO SCH ×3 (00:06→11:42)
[2018-02-18] MEDS: SODIUM CHLORIDE 0.9% 1,000 ML IV SCH (05:24)
[2018-02-18 07:38] LABS: Glucose,Whole Blood 218 mg/dL (75-99)
--- NOTE | 2018-02-18 07:50 | PN ---
PROGRESS NOTE DATE OF SERVICE: 02/17/2018. REASON FOR FOLLOWUP: 1. Colitis, likely C diff. 2. Patient with sacral and the left big toe wound. INTERVAL HISTORY: The patient is currently afebrile. He is breathing comfortably. Slightly sleepy and lethargic today though. No chest pain. No cough. No abdominal pain or any diarrhea. EXAMINATION: Blood pressure 163/90 with a pulse of 84, temperature 98.6. He is 99% on room air. General description is a middle aged male lying in bed in no distress. Respiratory system unlabored breathing. Clear to auscultation anteriorly. Heart S1, S2. Regular rate and rhythm. Abdomen soft. No tenderness. Extremities: His foot wound is currently dressed up. No obvious drainage on the dressing. LABS: Hemoglobin is 11.1, white count 10.9, BUN of 12, creatinine 0.59. Stool for C diff came back negative. Blood culture negative. Urine is negative. DIAGNOSTIC IMPRESSION/PLAN: 1. Patient with evidence of colitis on the CT. Did have elevated white count with stool for C diff positive on February 03 and patient continue for the same or not. The patient white count responded to oral vancomycin. Hence, we will recommend to keep the patient on oral vancomycin 250 p.o. q.6 hours for a total of 10 days. 2. Patient with a sacral and left big toe wound to continue wound care with [facility]. 3. As the patient is known to Dr. Mujica, he will be signed out to him tomorrow for continued followup. 4. Continue supportive care. MMODL / IJN: [id number] /
[2018-02-18] MEDS: INSULIN ASPART 100 UNIT/ML 1 ML 10 ML VIAL SQ SCH ×4 (08:20→12:49)
[2018-02-18] MEDS ORDERED: INSULIN DETEMIR 100 UNIT/ML 10 ML VIAL SQ SCH (09:00)
[2018-02-18] MEDS: IPRATROPIUM-ALBUTEROL 3 ML NEB INHALATION PRN (09:12)
[2018-02-18 09:16] VITALS: BP 182/81; RESP 18; TEMP 98.1
[2018-02-18 09:24] VITALS: PULSE 86
[2018-02-18] MEDS: LACTOBACILLUS ACIDOPH & BULGAR 1 EACH PACKET PO SCH (09:26)
[2018-02-18] MEDS: TAMSULOSIN 0.4 MG CAP.ER.24H PO SCH (09:28)
[2018-02-18] MEDS: LOSARTAN 25 MG TAB PO SCH (09:28)
[2018-02-18] MEDS: CHOLECALCIFEROL 1,000 UNIT TAB PO SCH (09:29)
[2018-02-18] MEDS: ISOSORBIDE MONONITRATE ER 30 MG TAB.ER.24H PO SCH (09:29)
[2018-02-18] MEDS: CLOPIDOGREL 75 MG TAB PO SCH (09:29)
[2018-02-18] MEDS: METOPROLOL TARTRATE 50 MG TAB PO SCH (09:29)
[2018-02-18] MEDS: FERROUS SULFATE 325 MG TAB PO SCH (09:29)
[2018-02-18] MEDS: ALLOPURINOL 100 MG TAB PO SCH (09:29)
[2018-02-18] MEDS: PANTOPRAZOLE 40 MG TABLET PO SCH (09:29)
[2018-02-18] MEDS: DULoxetine HCL 30 MG CAPSULE.DR PO SCH (09:30)
[2018-02-18] MEDS: PREGABALIN 75 MG CAP PO SCH (09:50)
[2018-02-18] MEDS: ENOXAPARIN 40 MG/0.4 ML SYRINGE SQ SCH (11:34)
[2018-02-18] MEDS ORDERED: CHERRY FLAVOR 60 ML BOTTLE PO SCH (12:00)
[2018-02-18 12:11] LABS: Glucose,Whole Blood 231 mg/dL (75-99)
[2018-02-18] MEDS: oxyCODONE ER 20 MG TAB.ER.12H PO SCH (12:48)
--- NOTE | 2018-02-18 22:38 | DS ---
DISCHARGE SUMMARY DATE OF SERVICE: 02/18/2018. FINAL DIAGNOSES: 1. Abdominal pain, acute diarrhea, possible acute colitis for possible infective gastroenteritis. 2. Leukocytosis, MCV is negative. 3. History of previous C difficile colitis. 4. Coronary artery disease. 5. Chronic obstructive pulmonary disease. 6. Diabetes mellitus type 2. 7. Hyperlipidemia. 8. Hypertension. 9. History of diabetic neuropathy. 10.Benign prostatic hypertrophy. 11.Depression. 12.History of DVT. 13.History of pulmonary embolisms. 14.History of brain bleed. DISCHARGE DISPOSITION: The patient will be discharged in stable condition with guarded prognosis. HISTORY OF PRESENT ILLNESS: This 63-year-old gentleman with a past history as mentioned admitted with diarrhea and multiple findings on the CAT scan. The patient improved significantly. Gastroenterology saw the patient. C difficile was negative. On exam: Vitals are stable. Cardiovascular: S1, S2. Abdomen: Soft. Nervous System: No focal deficit. DISCHARGE ADVICE: 1. Diet is cardiac. 2. Activity limited until follow up. 3. Follow up with Dr. Naqvi in 2-3 days. 4. Follow up with Gastroenterology as recommended. MEDICATIONS: 1. ProAir HFA p.r.n. 2. Vitamin D3 1000 units. 3. Cymbalta 60 mg daily. 4. Iron sulfate 320 mg daily. 5. Lasix 40 mg b.i.d. 6. Lantus 35 units subcu b.i.d. 7. Imdur ER 30 mg p.o. daily. 8. Lactobacillus 3 tablets b.i.d. 9. Cozaar 20 mg p.o. daily. 10.Glucophage 500 mg p.o. b.i.d. 11.Reglan 5 mg a.c. b.i.d. 12.Lopressor 100 mg b.i.d. 13.Omeprazole 40 mg p.o. daily. 14.OxyContin 40 mg p.o. b.i.d. 15.Lyrica 150 mg b.i.d. 16.Flomax 0.4. 17.Zyloprim 100 mg p.o. daily. 18.Plavix 75 mg. 19.Flagyl 500 mg q.8h for 5 days. 20.Xarelto 15 mg with supper. Once again, the patient will be discharged in stable condition with guarded prognosis. Total time taken 35 minutes. MMODL / IJN: [id number] /
== END 2018-02-18 16:17 | disposition home health service (06) | DRG 392 ==
LOC: EC 17:12 → 4SSUR 19:41
PROVIDERS: ADMIT Internal Medicine; ATTEND Internal Medicine
DX: A09 Infectious gastroenteritis and colitis, unspecified (principal); E86.0 Dehydration; I25.10 Atherosclerotic heart disease of native coronary artery without angina pectoris; J44.9 Chronic obstructive pulmonary disease, unspecified; F41.9 Anxiety disorder, unspecified; E11.42 Type 2 diabetes mellitus with diabetic polyneuropathy; E78.5 Hyperlipidemia, unspecified; F32.9 Major depressive disorder, single episode, unspecified; I10 Essential (primary) hypertension; K21.9 Gastro-esophageal reflux disease without esophagitis; L89.152 Pressure ulcer of sacral region, stage 2; N40.0 Benign prostatic hyperplasia without lower urinary tract symptoms; Z86.73 Personal history of transient ischemic attack (TIA), and cerebral infarction without residual deficits; Z79.899 Other long term (current) drug therapy; Z79.4 Long term (current) use of insulin; Z79.01 Long term (current) use of anticoagulants; Z79.02 Long term (current) use of antithrombotics/antiplatelets; I25.2 Old myocardial infarction; Z95.5 Presence of coronary angioplasty implant and graft; Z87.891 Personal history of nicotine dependence; Z89.421 Acquired absence of other right toe(s); Z82.49 Family history of ischemic heart disease and other diseases of the circulatory system; Z86.19 Personal history of other infectious and parasitic diseases; Z86.711 Personal history of pulmonary embolism; Z86.718 Personal history of other venous thrombosis and embolism
CPT/HCPCS: 36415; 71046; 74177; 80048; 80053; 81003; 82550; 82553; 83036; 83605; 83735; 84100; 84443; 84484; 85025; 85027; 87040; 87086; 87324; 93005; 94640; 94760; 96361; 96365; 96368; 99285

== ENCOUNTER 2018-02-23 17:03 | Inpatient (IN) | payer MEDICARE, OTHER ==
[2018-02-23] MEDS ORDERED: SODIUM CHLORIDE 0.9% 1,000 ML IV STA (17:32)
--- NOTE | 2018-02-23 17:56 | ED ---
General Adult HPI - General Chief complaint: Weakness Stated complaint: fatique,dehydrated Source: patient Mode of arrival: wheelchair Limitations: no limitations - History of Present Illness Initial comments: Dictation was produced using [employer] dictation software. please excuse any grammatical, word or spelling errors. Chief Complaint: 63-year-old male with multiple comorbidities presents with instruction from primary care physician to come to the emergency department for dehydration. History of Present Illness: Patient is 63-year-old male with multiple comorbidities. Chart review shows that patient has history of coronary artery disease, COPD, CVA, DVTs, dyslipidemia. He was allegedly at his primary care physician's office in was thought to be having symptoms secondary to dehydration. He is told to come to the emergency department. Patient states she's been feeling ill for approximately one week. He is currently on Flagyl which she is unsure why he is taking it. Patient reports testing positive for C. diff infection. Patient also has chronic wound to his left great toe. He believes he is taking infections for this. Patient's history of diverticulitis. He has chronic left lower quadrant abdominal pain. States that his symptoms have not really changed recently in his abdomen. Denies any constitutional symptoms. Patient states she's been feeling faint. Denies any episodes of syncope. The ROS documented in this emergency department record has been reviewed and confirmed by me. Those systems with pertinent positive or negative responses have been documented in the HPI. All other systems are other negative and/or noncontributory. - Related Data Home Medications Medication Instructions Recorded Confirmed Ferrous Sulfate [Iron (65 MG 325 mg PO DAILY 04/05/17 02/23/18 Elemental)] Cholecalciferol [Vitamin D3] 1,000 unit PO DAILY 09/19/17 02/23/18 Furosemide [Lasix] 40 mg PO BID 09/19/17 02/23/18 Insulin Glargine,Hum.rec.anlog 35 unit SQ BID 09/19/17 02/23/18 [Toujeo Solostar] Isosorbide Mononitrate ER [Imdur] 30 mg PO DAILY 09/19/17 02/23/18 Losartan [Cozaar] 25 mg PO DAILY 09/19/17 02/23/18 Pregabalin [Lyrica] 150 mg PO BID 09/19/17 02/23/18 Albuterol Sulfate [Proair Hfa] 1 - 2 puff INHALATION RT-Q6H PRN 09/26/17 DULoxetine HCL [Cymbalta] 60 mg PO DAILY 09/26/17 02/23/18 Lactobacillus Acidophilus 3 tab PO DAILY 09/26/17 02/23/18 [Acidophilus] Omeprazole 40 mg PO DAILY 09/26/17 02/23/18 Insulin Lispro [humaLOG Kwikpen] 15 unit SQ AC-TID 02/14/18 02/23/18 Metoclopramide HCl [Reglan] 5 mg PO AC-TID 02/14/18 02/23/18 Metoprolol Tartrate [Lopressor] 100 mg PO BID 02/14/18 02/23/18 Tamsulosin HCl [Flomax] 0.4 mg PO DAILY 02/14/18 02/23/18 metFORMIN HCL [Glucophage] 500 mg PO BID 02/14/18 02/23/18 oxyCODONE HCL [OxyCONTIN] 40 mg PO Q12H 02/14/18 02/23/18 Previous Rx's Medication Instructions Recorded Clopidogrel [Plavix] 75 mg PO DAILY #30 tab 09/28/17 Rivaroxaban [Xarelto] 15 mg PO W/SUPPER #30 tab 09/28/17 Allopurinol [Zyloprim] 100 mg PO DAILY #30 tablet 11/15/17 metroNIDAZOLE [Flagyl] 500 mg PO Q8HR #15 tab 02/18/18 Allergies Allergy/AdvReac Type Severity Reaction Status Date / Time No Known Allergies Allergy Verified 02/23/18 18:01 Review of Systems ROS Statement: Those systems with pertinent positive or pertinent negative responses have been documented in the HPI. ROS Other: All systems not noted in ROS Statement are negative. Past Medical History Past Medical History: Coronary Artery Disease (CAD), COPD, CVA/TIA, Diabetes Mellitus, Deep Vein Thrombosis (DVT), GERD/Reflux, Hyperlipidemia, Hypertension , Myocardial Infarction (HI), Osteoarthritis (OA), Pneumonia, Pulmonary Embolus (PE), Skin Disorder Additional Past Medical History / Comment(s): fell May 2013 and hit head and had a brain bleed-from possible TIA, c-diff, myopathy, tia/cva- no effects, hx ulcer, psoriasis, pressure wound after being hospitalized for toe amputation in 2016. Last Myocardial Infarction Date:: 08/2017 History of Any Multi-Drug Resistant Organisms: C-DIFF Date of last positivie culture/infection: 01/24/18 MDRO Source:: stool Past Surgical History: Heart Catheterization With Stent, Orthopedic Surgery, Tonsillectomy Additional Past Surgical History / Comment(s): bunionectomy, amy shoulder rotator cuff, mult heart stents,, LEFT LEG ARTERY X2 STENTS. COLONOSCOPY, amptation right 2nd toe , surgical debridement of left great toe dec 2017 Past Anesthesia/Blood Transfusion Reactions: Motion Sickness Date of Last Stent Placement:: 2016 Past Psychological History: Anxiety Smoking Status: Former smoker Past Alcohol Use History: None Reported Past Drug Use History: None Reported - Past Family History Mother Family Medical History: Cancer, Coronary Artery Disease (CAD) Father Family Medical History: Coronary Artery Disease (CAD) General Exam - General Exam Comments Initial Comments: PHYSICAL EXAM: General Impression: Alert and oriented x3, not in acute distress, pale HEENT: Normocephalic atraumatic, extra-ocular movements intact, pupils equal and reactive to light bilaterally, mucous membranes moist. Cardiovascular: Heart regular rate and rhythm, S1&S2 audible, no murmurs, rubs or gallops Chest: Lungs clear to auscultation bilaterally, no rhonchi, no wheeze, no rales Abdomen: Bowel sounds present, abdomen soft, non-tender, non-distended, no organomegaly Musculoskeletal: Pulses present and equal in all extremities, no peripheral edema Motor: Power 5/5 bilaterally, no focal deficits noted Neurological: CN II-XII grossly intact, no focal motor or sensory deficits noted Skin: Intact with no visualized rashes Psych: Normal affect and mood Limitations: no limitations Course Vital Signs 02/23/18 02/23/18 02/23/18 17:23 17:52 18:00 Temperature 98.1 F Pulse Rate 78 75 71 Respiratory 20 11 L 6 L Rate Blood Pressure 93/60 O2 Sat by Pulse 98 Oximetry 02/23/18 02/23/18 02/23/18 18:10 18:20 18:30 Temperature Pulse Rate 79 Respiratory 8 L Rate Blood Pressure 130/54 130/54 O2 Sat by Pulse 98 Oximetry 02/23/18 02/23/18 02/23/18 18:40 18:50 19:00 Temperature Pulse Rate 82 80 Respiratory 17 11 L Rate Blood Pressure 130/54 130/54 130/54 O2 Sat by Pulse 95 97 Oximetry 02/23/18 02/23/18 19:10 19:20 Temperature 98.8 F Pulse Rate 76 84 Respiratory 8 L 22 Rate Blood Pressure 154/81 154/81 O2 Sat by Pulse 85 L 97 Oximetry Medical Decision Making - Medical Decision Making ED course: 63-year-old male presents with instruction from primary care physician come in for dehydration treatment. Vital signs upon arrival shows blood pressure 93/60, rest of vital signs within normal limits. Patient has left lower quadrant pain that has been resistant to treatment. Patient has left lower quadrant pain suspicious for reticulitis. He shows that patient had CT abdomen and pelvis performed approximately one week ago showing fat stranding around the sigmoid colon. His clinical suspicion that patient's symptoms represent diverticulitis. Patient given antibiotics. Laboratory evaluation obtained. Patient is leukocytosis of 14.0. Coag panel is unremarkable. Metabolic panel shows lactic acid level II.5. Rest of labs are unremarkable. Urinalysis is negative. Patient does show signs of symptoms of sepsis and possibly septic shock. Patient is a his history of heart failure. 30 mL per KG likely would be too much fluid and gentleman with history of congestive heart failure. Patient to be hydrated gently. She'll be admitted. EKG Interpretation: A 12 lead EKG was obtained. It was interpreted by myself and attending physician. There is a P wave before every QRS complex. Rate is 76. Rhythm is normal sinus rhythm,. Interval 146, QRS 76, QTC 504. QT is prolonged at 504. - Lab Data Result diagrams: 02/23/18 18:00 02/23/18 18:00 Lab Results 02/23/18 02/23/18 02/23/18 Range/Units 18:00 18:00 18:00 WBC 14.0 H (3.8-10.6) k/uL RBC 5.02 (4.30-5.90) m/uL Hgb 13.5 (13.0-17.5) gm/dL Hct 42.0 (39.0-53.0) % MCV 83.6 (80.0-100.0) fL MCH 26.9 (25.0-35.0) pg MCHC 32.1 (31.0-37.0) g/dL RDW 15.6 H (11.5-15.5) % Plt Count 351 (150-450) k/uL Neutrophils % 78 % Lymphocytes % 13 % Monocytes % 6 % Eosinophils % 1 % Basophils % 1 % Neutrophils # 11.0 H (1.3-7.7) k/uL Lymphocytes # 1.8 (1.0-4.8) k/uL Monocytes # 0.8 (0-1.0) k/uL Eosinophils # 0.2 (0-0.7) k/uL Basophils # 0.1 (0-0.2) k/uL PT (9.0-12.0) sec INR (<1.2) APTT (22.0-30.0) sec Sodium 135 L (137-145) mmol/L Potassium 4.6 (3.5-5.1) mmol/L Chloride 96 L (98-107) mmol/L Carbon Dioxide 28 (22-30) mmol/L Anion Gap 11 mmol/L BUN 19 (9-20) mg/dL Creatinine 1.09 (0.66-1.25) mg/dL Est GFR (CKD-EPI)AfAm 83 (>60 ml/min/1.73 sqM) Est GFR (CKD-EPI)NonAf 72 (>60 ml/min/1.73 sqM) Glucose 277 H (74-99) mg/dL Plasma Lactic Acid Yury (0.7-2.0) mmol/L Calcium 9.8 (8.4-10.2) mg/dL Magnesium 1.5 L (1.6-2.3) mg/dL Total Bilirubin 0.5 (0.2-1.3) mg/dL AST 21 (17-59) U/L ALT 18 L (21-72) U/L Alkaline Phosphatase 92 (38-126) U/L Total Creatine Kinase 22 L (55-170) U/L CK-MB (CK-2) 1.7 (0.0-2.4) ng/mL CK-MB (CK-2) Rel Index 7.7 Troponin I 0.014 (0.000-0.034) ng/mL Total Protein 7.4 (6.3-8.2) g/dL Albumin 4.2 (3.5-5.0) g/dL Lipase 84 (23-300) U/L Urine Color Urine Appearance (Clear) Urine pH (5.0-8.0) Ur Specific Woodworth (1.001-1.035) Urine Protein (Negative) Urine Glucose (UA) (Negative) Urine Ketones (Negative) Urine Blood (Negative) Urine Nitrite (Negative) Urine Bilirubin (Negative) Urine Urobilinogen (<2.0) mg/dL Ur Leukocyte Esterase (Negative) 02/23/18 02/23/18 02/23/18 Range/Units 18:00 18:00 18:55 WBC (3.8-10.6) k/uL RBC (4.30-5.90) m/uL Hgb (13.0-17.5) gm/dL Hct (39.0-53.0) % MCV (80.0-100.0) fL MCH (25.0-35.0) pg MCHC (31.0-37.0) g/dL RDW (11.5-15.5) % Plt Count (150-450) k/uL Neutrophils % % Lymphocytes % % Monocytes % % Eosinophils % % Basophils % % Neutrophils # (1.3-7.7) k/uL Lymphocytes # (1.0-4.8) k/uL Monocytes # (0-1.0) k/uL Eosinophils # (0-0.7) k/uL Basophils # (0-0.2) k/uL PT 12.6 H (9.0-12.0) sec INR 1.3 H (<1.2) APTT 33.9 H (22.0-30.0) sec Sodium (137-145) mmol/L Potassium (3.5-5.1) mmol/L Chloride (98-107) mmol/L Carbon Dioxide (22-30) mmol/L Anion Gap mmol/L BUN (9-20) mg/dL Creatinine (0.66-1.25) mg/dL Est GFR (CKD-EPI)AfAm (>60 ml/min/1.73 sqM) Est GFR (CKD-EPI)NonAf (>60 ml/min/1.73 sqM) Glucose (74-99) mg/dL Plasma Lactic Acid Yury 2.5 H* (0.7-2.0) mmol/L Calcium (8.4-10.2) mg/dL Magnesium (1.6-2.3) mg/dL Total Bilirubin (0.2-1.3) mg/dL AST (17-59) U/L ALT (21-72) U/L Alkaline Phosphatase (38-126) U/L Total Creatine Kinase (55-170) U/L CK-MB (CK-2) (0.0-2.4) ng/mL CK-MB (CK-2) Rel Index Troponin I (0.000-0.034) ng/mL Total Protein (6.3-8.2) g/dL Albumin (3.5-5.0) g/dL Lipase (23-300) U/L Urine Color Yellow Urine Appearance Clear (Clear) Urine pH 6.5 (5.0-8.0) Ur Specific Woodworth 1.010 (1.001-1.035) Urine Protein Negative (Negative) Urine Glucose (UA) Negative (Negative) Urine Ketones Negative (Negative) Urine Blood Negative (Negative) Urine Nitrite Negative (Negative) Urine Bilirubin Negative (Negative) Urine Urobilinogen <2.0 (<2.0) mg/dL Ur Leukocyte Esterase Negative (Negative) Disposition Clinical Impression: Sepsis Disposition: ADMITTED IP TO THIS HOSP Condition: Fair Referrals: Tr Naqvi DO [Primary Care Provider] - 1-2 days Decision Time: 20:43
[2018-02-23 18:23] LABS: Basophils # (A) 0.1 k/uL (0-0.2); Basophils % (A) 1 %; Eosinophils # (A) 0.2 k/uL (0-0.7); Eosinophils % (A) 1 %; HGB 13.5 gm/dL (13.0-17.5); Lymphocytes # (A) 1.8 k/uL (1.0-4.8); Lymphocytes % (A) 13 %; MCH 26.9 pg (25.0-35.0); MCHC 32.1 g/dL (31.0-37.0); MCV 83.6 fL (80.0-100.0); Mean Platelet Volume 7.6; Monocytes # (A) 0.8 k/uL (0-1.0); Monocytes % (A) 6 %; Neutrophils % (A) 78 %; Platelet Count 351 k/uL (150-450); RBC 5.02 m/uL (4.30-5.90); RDW 15.6 % (11.5-15.5)
[2018-02-23 18:34] LABS: INR 1.3 (<1.2); Partial Thromboplastin Time 33.9 sec (22.0-30.0); Prothrombin Time 12.6 sec (9.0-12.0)
[2018-02-23 18:35] LABS: Albumin 4.2 g/dL (3.5-5.0); Calcium 9.8 mg/dL (8.4-10.2); Magnesium 1.5 mg/dL (1.6-2.3); Potassium 4.6 mmol/L (3.5-5.1); Total Bilirubin 0.5 mg/dL (0.2-1.3); Total Protein 7.4 g/dL (6.3-8.2)
--- NOTE | 2018-02-23 18:40 | XR ---
EXAMINATION TYPE: XR chest 2V DATE OF EXAM: 02/23/2018 COMPARISON: 02/14/2018 HISTORY: Weakness TECHNIQUE: Frontal and lateral views of the chest are obtained. FINDINGS: Heart and mediastinum are normal. Lungs are clear. Diaphragm is normal. Bony thorax appear s normal. IMPRESSION: Normal chest. No change.
[2018-02-23 18:46] LABS: Creatine Kinase MB 1.7 ng/mL (0.0-2.4); Troponin I 0.014 ng/mL (0.000-0.034)
[2018-02-23 19:03] LABS: Appearance,Urine Clear (Clear); Bilirubin,Urine Negative (Negative); Blood,Urine Negative (Negative); Color,Urine Yellow; Glucose,Urine (UA) Negative (Negative); Ketones,Urine Negative (Negative); Leukocyte Esterase,Urine Negative (Negative); Nitrite,Urine Negative (Negative); PH, Urine 6.5 (5.0-8.0); Protein,Urine Negative (Negative); Urobilinogen,Urine <2.0 mg/dL (<2.0)
[2018-02-23] MEDS ORDERED: metroNIDAZOLE-NS PMX 500 MG in SALINE 1 100ML.BAG IVPB STA (19:10)
[2018-02-23] MEDS ORDERED: NALOXONE 0.4 MG/ML 1 ML VIAL IV PRN (20:40)
[2018-02-23] MEDS: MAGNESIUM SULFATE-D5W PMX 1 GM in DEXTROSE/WATER 1 100ML.BAG IVPB SCH ×2 (21:12→22:33)
[2018-02-23] MEDS ORDERED: oxyCODONE ER 20 MG TAB.ER.12H PO STA (23:44)
[2018-02-24 01:00] LABS: Glucose,Whole Blood 225 mg/dL (75-99)
[2018-02-24] MEDS ORDERED: INSULIN DETEMIR 100 UNIT/ML 10 ML VIAL SQ ONE (01:15)
[2018-02-24] MEDS: INSULIN ASPART 100 UNIT/ML 1 ML 10 ML VIAL SQ SCH ×9 (01:27→22:26)
[2018-02-24] MEDS: METOPROLOL TARTRATE 50 MG TAB PO SCH ×3 (01:27→22:27)
[2018-02-24 07:04] LABS: Glucose,Whole Blood 103 mg/dL (75-99)
[2018-02-24] MEDS ORDERED: INSULIN ASPART 100 UNIT/ML 1 ML 10 ML VIAL SQ SCH (07:30)
[2018-02-24] MEDS: SODIUM CHLORIDE 0.9% 1,000 ML IV SCH (07:39)
[2018-02-24] MEDS: PANTOPRAZOLE 40 MG/10 ML VIAL IVP SCH (09:48)
[2018-02-24] MEDS: oxyCODONE ER 20 MG TAB.ER.12H PO SCH ×2 (09:49→22:27)
[2018-02-24] MEDS: TAMSULOSIN 0.4 MG CAP.ER.24H PO SCH (09:49)
[2018-02-24] MEDS: CLOPIDOGREL 75 MG TAB PO SCH (09:49)
[2018-02-24] MEDS: INSULIN DETEMIR 100 UNIT/ML 10 ML VIAL SQ SCH ×2 (09:50→22:26)
[2018-02-24 11:52] LABS: Glucose,Whole Blood 173 mg/dL (75-99)
[2018-02-24] MEDS ORDERED: NON-FORMULARY DRUG (Omeprazole [Omeprazole] 40 MG) PO SCH (12:00)
[2018-02-24] MEDS ORDERED: LACTOBACILLUS ACIDOPH & BULGAR 1 EACH PACKET PO SCH (12:00)
[2018-02-24] MEDS: METOCLOPRAMIDE 5 MG TAB PO SCH ×3 (12:54→17:50)
[2018-02-24] MEDS: metFORMIN 500 MG TAB PO SCH ×2 (13:03→17:49)
[2018-02-24] MEDS: ALLOPURINOL 100 MG TAB PO SCH (13:03)
[2018-02-24] MEDS: LOSARTAN 25 MG TAB PO SCH (13:04)
[2018-02-24] MEDS: ISOSORBIDE MONONITRATE ER 30 MG TAB.ER.24H PO SCH (13:04)
[2018-02-24] MEDS: metroNIDAZOLE 500 MG TAB PO SCH ×2 (13:04→22:27)
[2018-02-24] MEDS: DULoxetine HCL 60 MG CAPSULE.DR PO SCH (13:04)
[2018-02-24] MEDS: FERROUS SULFATE 325 MG TAB PO SCH (13:08)
[2018-02-24] MEDS: PREGABALIN 50 MG CAP PO SCH (13:08)
--- NOTE | 2018-02-24 16:49 | HP ---
HISTORY AND PHYSICAL DATE OF ADMISSION: 02/23/2018 DATE OF SERVICE: 02/24/2018. PRESENTING COMPLAINT: Weak and tired. HISTORY OF PRESENTING COMPLAINT: This is a pleasant 63-year-old patient with a rather extensive medical history. Chronic stable medical conditions include coronary artery disease with stent, COPD, diabetes, type 2, GERD, hyperlipidemia, hypertension, primary osteoarthritis, peripheral artery disease. Patient was discharged on 02/18/2018 by my colleague, Dr. Ramirez. Patient on last admission was positive for C difficile colitis. The patient also has a sacral wound and a left big toe wound. Patient was discharged on Flagyl. The patient has been followed by Dr. Mujica. Patient was at home, went to see his family doctor, felt a multitude of symptoms, feeling weak, tired, not much of an appetite, rundown, getting dizzy, lightheaded, blood pressure running low. No fever. No chills. Bowels are better controlled. Admitted for the same. It was his family doctor's impression that the patient is getting dehydrated. Hence he was sent in. The patient did receive fluids overnight, with which patient is feeling somewhat better. Appetite is beginning to perk up. REVIEW OF SYSTEMS: CONSTITUTIONAL: Tired. HEENT: None. RESPIRATORY: None. CARDIOVASCULAR: None. GASTROINTESTINAL: No more diarrhea. GENITOURINARY: None. MUSCULOSKELETAL: Some pain in the joints. DERMATOLOGICAL: Left toe wound. Sacral decubitus. LYMPHATICS: None. PSYCHIATRY: None. NEUROLOGICAL: None. PAST MEDICAL HISTORY: 1. Coronary artery disease with stent to the circumflex. 2. Sacral decubitus ulcer. 3. Left big toe wound. 4. C difficile colitis. 5. COPD. 6. Diabetes mellitus, type 2. 7. GERD. 8. Hyperlipidemia. 9. Hypertension. 10.Primary osteoarthritis. 11.Peripheral artery disease with peripheral stents. 12.Stroke. 13.PE. 14.Pressure ulcer sacral wound. PAST SURGICAL HISTORY: 1. Cardiac cath with stent. 2. Tonsillectomy. 3. Bunionectomy. 4. Bilateral shoulder rotator cuff surgery. 5. Multiple cardiac caths, multiple stents. 6. Peripheral artery stents. 7. Amputation of the right second toe. 8. Surgical debridement of the left big toe in December 2017. SOCIAL HISTORY: The patient smoked 2 packs a day for 27 years, stopped in 1999. Patient was drinking heavily until 1999. FAMILY HISTORY: Coronary artery disease. HOME MEDICATIONS: 1. OxyContin 40 mg q.12. 2. Flagyl 500 mg q.8. 3. Glucophage 500 mg b.i.d. 4. Flomax 0.4 mg a day. 5. Xarelto 15 mg with supper. 6. Lyrica 150 mg b.i.d. 7. Omeprazole 40 mg p.o. daily. 8. Lopressor 100 mg b.i.d. 9. Reglan 5 mg before meals t.i.d. 10.Cozaar 25 mg daily. 11.Lactobacilli 3 tablets p.o. daily. 12.Imdur ER 30 mg daily. 13.Humalog 15 units subcutaneously before meals t.i.d. 14.Lantus 35 units subcutaneously b.i.d. 15.Lasix 40 mg b.i.d. 16.Iron 325 p.o. daily. 17.Cymbalta 60 mg p.o. daily. 18.Plavix 75 mg p.o. daily. 19.Vitamin D3 1000 units p.o. daily. 20.Allopurinol 100 mg p.o. daily. 21.ProAir 1-2 puffs q.6 p.r.n. ALLERGIES: NONE. PHYSICAL EXAMINATION: VITAL SIGNS ON PRESENTATION: Temperature 98.1, pulse 78, respiration 20, blood pressure 93/60, pulse ox 98% on room air. GENERAL APPEARANCE: Well built; BMI 34.6. Lying in bed, tired-appearing. EYES: Pupils equal. Conjunctivae normal. HEENT: External appearance of nose and ears normal. Oral cavity normal. NECK: JVD not raised. Mass not palpable. RESPIRATORY: Effort increased. LUNGS: Decreased breath sounds. CARDIOVASCULAR: First and second sounds normal. No edema. ABDOMEN: Soft, non-tender. Liver and spleen not palpable. LYMPHATIC: No lymph node palpable in neck or axillae. PSYCHIATRY: Alert and oriented x3. Mood and affect normal. EXTREMITIES: Left foot wound, sacral wound. More details in nursing charts. INVESTIGATIONS: Investigations in context of the clinical picture: white count 14, hemoglobin 13.5, platelets 351, potassium 4.6. BUN and creatinine are normal. Lactic acid 2.5. Magnesium 1.5. UA negative. ASSESSMENT: 1. Acute dehydration and hypotension, probably from decreased oral intake. Patient had been dizzy and lightheaded at home. 2. Coronary artery disease with stent to the circumflex. 3. Chronic obstructive pulmonary disease in an ex-smoker. 4. Diabetes mellitus, type 2, chronically on insulin. 5. Gastroesophageal reflux disease. 6. Hyperlipidemia. 7. Essential hypertension. 8. Primary osteoarthritis. 9. Peripheral artery disease with peripheral stents. 10.History of amputation of the right second toe. 11.Recent acute Clostridium difficile colitis, for which patient is on Flagyl, clinically improved. 12.Left big toe wound, healing. 13.Sacral decubitus wound, present on admission, healing. PLAN: Home medications are to be continued. Patient did get some IV fluids. Patient is feeling better. We will see how he does. Care was discussed with the patient. Wound care to continue. MMODL / IJN: [id number] /
[2018-02-24 17:05] LABS: Glucose,Whole Blood 226 mg/dL (75-99)
[2018-02-24 17:24] LABS: Hemoglobin A1C 7.1 % (4.0-6.0)
[2018-02-24] MEDS: RIVAROXABAN 15 MG TAB PO SCH (17:50)
[2018-02-24 20:09] LABS: Glucose,Whole Blood 189 mg/dL (75-99)
--- NOTE | 2018-02-24 22:42 | P.CONS ---
History of Present Illness - Reason for Consult Consult date: 02/24/18 - Chief Complaint fatigue - History of Present Illness 63-year-old male who is well-known to the infectious disease service presents back to the emergency center after evaluation by his primary care physician with complaints of increasing fatigue and malaise. The patient has had multiple hospitalizations over the last several months. The patient a year ago had profound illness where he had cardiogenic shock and fortunately recovered from his profound illness but had any extremely large pressure ulceration to his coccyx is now almost completely healed. Recent injury to his toe resulted ulceration is also considerably improved. He was hospitalized earlier this month at which point I was having some diarrhea C. difficile toxin was positive. He was treated and is now had significant improvement. However at home he continued to feel poorly having increasing fatigue and malaise concerns to dehydration and he presented emergency center. There is evidence of a leukocytosis and concerns dehydration and he was admitted. Hydration is difficult given his significant cardiac myopathy and chronic congestive heart failure systolic type. Review of Systems Patient complains of fatigue and poor mood HEENT:Denies headache or acute visual change. Denies sinus or mouth discomforts. Denies neck stiffness or pain. Denies significant oral cavity pain. Denies difficulty on swallowing. Lungs: Denies significant shortness of breath, cough, sputum production, or hemoptysis. Cardiovascular: Denies significant shortness of breath, chest pain, chest wall pain, orthopnea, dyspnea on exertion, syncope Gastrointestinal:Denies nausea, vomiting, diarrhea, constipation, hematemesis, melena, hematochezia. No no significant change of bowel habit noticed. Musculoskeletal: denies significant myalgias or arthralgias. No new joint swelling. Denies new back pain. Skin: Denies new rash or lesions. No new ulcers or wounds are related.. Neuro: Denies headache or visual change. Denies any new onset weakness or difficulty with ambulation. Denies falls or seizures. Psychiatric: Denies much anxiety but has feelings of depression Endocrine: Significant fatigue weight has been stable Past Medical History Past Medical History: Coronary Artery Disease (CAD), COPD, CVA/TIA, Diabetes Mellitus, Deep Vein Thrombosis (DVT), GERD/Reflux, Hyperlipidemia, Hypertension , Myocardial Infarction (MT), Osteoarthritis (OA), Pneumonia, Pulmonary Embolus (PE), Skin Disorder Additional Past Medical History / Comment(s): fell May 2013 and hit head and had a brain bleed-from possible TIA, c-diff, myopathy, tia/cva- no effects, hx ulcer, psoriasis, pressure wound sacral area after being hospitalized for toe amputation in 2016. lt great toe wound. Last Myocardial Infarction Date:: 08/2017 History of Any Multi-Drug Resistant Organisms: C-DIFF, MRSA Year Discovered:: 01/24/18/ mrsa?2015 or 2016 thinks it was at [facility](per pt) MDRO Source:: stool/ source unk Past Surgical History: Heart Catheterization With Stent, Orthopedic Surgery, Tonsillectomy Additional Past Surgical History / Comment(s): bunionectomy, amy shoulder rotator cuff, multiple heart caths and mult heart stents,, LEFT LEG ARTERY X2 STENTS. COLONOSCOPY, amputation right 2nd toe , surgical debridement of left great toe dec 2017 Past Anesthesia/Blood Transfusion Reactions: Motion Sickness Additional Past Anesthesia/Blood Transfusion Reaction / Comm: pt stated has had a blood transfusion in past-no known reaction Date of Last Stent Placement:: 2016 Additional Psychological History / Comment(s): lives in the family home with his . Reformed smoker. Disabled. No international travel. No experience Smoking Status: Former smoker - Past Family History Mother Family Medical History: Cancer, Coronary Artery Disease (CAD) Father Family Medical History: Coronary Artery Disease (CAD) Medications and Allergies Home Medications and Allergies Comment(s): Current Medications Allopurinol (Zyloprim) 100 mg PO DAILY [facility] Last Admin: 02/24/18 13:03 Dose: 100 mg Clopidogrel Bisulfate (Plavix) 75 mg PO DAILY [facility] Last Admin: 02/24/18 09:49 Dose: 75 mg Duloxetine HCl (Cymbalta) 60 mg PO DAILY [facility] Last Admin: 02/24/18 13:04 Dose: 60 mg Ferrous Sulfate (Feosol) 325 mg PO DAILY [facility] Last Admin: 02/24/18 13:08 Dose: 325 mg Sodium Chloride (Saline 0.9%) 1,000 mls @ 20 mls/hr IV .Q24H [facility] Last Admin: 02/24/18 07:39 Dose: Not Given Insulin Aspart (Novolog) 5 unit SQ ACHS [facility] Last Admin: 02/24/18 17:49 Dose: Not Given Insulin Aspart (Novolog) 0 unit SQ ACHS [facility]; Protocol Last Admin: 02/24/18 17:49 Dose: 5 unit Insulin Detemir (Levemir) 35 unit SQ BID [facility] Last Admin: 02/24/18 09:50 Dose: Not Given Isosorbide Mononitrate (Imdur) 30 mg PO DAILY [facility] Last Admin: 02/24/18 13:04 Dose: 30 mg Lactobacillus Acidoph/Bulgaricus (Lactinex) 1 each PO DAILY [facility] Last Admin: 02/24/18 13:02 Dose: 1 each Losartan Potassium (Cozaar) 25 mg PO DAILY [facility] Last Admin: 02/24/18 13:04 Dose: 25 mg Metformin HCl (Glucophage) 500 mg PO AC-BID [facility] Last Admin: 02/24/18 17:49 Dose: 500 mg Metoclopramide HCl (Reglan) 5 mg PO AC-TID [facility] Last Admin: 02/24/18 17:50 Dose: 5 mg Metoprolol Tartrate (Lopressor) 100 mg PO BID [facility] Last Admin: 02/24/18 09:53 Dose: 100 mg Metronidazole (Flagyl) 500 mg PO Q8H [facility] Last Admin: 02/24/18 13:04 Dose: 500 mg Naloxone HCl (Narcan) 0.2 mg IV Q2M PRN PRN Reason: Opioid Reversal Oxycodone HCl (Oxycontin 20mg E.R.) 40 mg PO Q12HR [facility] Last Admin: 02/24/18 09:49 Dose: 40 mg Pantoprazole Sodium (Protonix) 40 mg IVP DAILY [facility] Last Admin: 02/24/18 09:48 Dose: 40 mg Pregabalin (Lyrica) 150 mg PO BID [facility] Last Admin: 02/24/18 13:08 Dose: 150 mg Rivaroxaban (Xarelto) 15 mg PO W/SUPPER [facility] Last Admin: 02/24/18 17:50 Dose: 15 mg Tamsulosin HCl (Flomax) 0.4 mg PO DAILY [facility] Last Admin: 02/24/18 09:49 Dose: 0.4 mg Home Medications Medication Instructions Recorded Confirmed Type Ferrous Sulfate [Iron (65 MG 325 mg PO DAILY 04/05/17 02/23/18 History Elemental)] Cholecalciferol [Vitamin D3] 1,000 unit PO DAILY 09/19/17 02/23/18 History Furosemide [Lasix] 40 mg PO BID 09/19/17 02/23/18 History Insulin Glargine,Hum.rec.anlog 35 unit SQ BID 09/19/17 02/23/18 History [Toujeo Solostar] Isosorbide Mononitrate ER [Imdur] 30 mg PO DAILY 09/19/17 02/23/18 History Losartan [Cozaar] 25 mg PO DAILY 09/19/17 02/23/18 History Pregabalin [Lyrica] 150 mg PO BID 09/19/17 02/23/18 History Albuterol Sulfate [Proair Hfa] 1 - 2 puff INHALATION RT-Q6H PRN 09/26/17 History DULoxetine HCL [Cymbalta] 60 mg PO DAILY 09/26/17 02/23/18 History Lactobacillus Acidophilus 3 tab PO DAILY 09/26/17 02/23/18 History [Acidophilus] Omeprazole 40 mg PO DAILY 09/26/17 02/23/18 History Clopidogrel [Plavix] 75 mg PO DAILY #30 tab 09/28/17 02/23/18 Rx Rivaroxaban [Xarelto] 15 mg PO W/SUPPER #30 tab 09/28/17 02/23/18 Rx Allopurinol [Zyloprim] 100 mg PO DAILY #30 tablet 11/15/17 02/23/18 Rx Insulin Lispro [humaLOG Kwikpen] 15 unit SQ AC-TID 02/14/18 02/23/18 History Metoclopramide HCl [Reglan] 5 mg PO AC-TID 02/14/18 02/23/18 History Metoprolol Tartrate [Lopressor] 100 mg PO BID 02/14/18 02/23/18 History Tamsulosin HCl [Flomax] 0.4 mg PO DAILY 02/14/18 02/23/18 History metFORMIN HCL [Glucophage] 500 mg PO BID 02/14/18 02/23/18 History oxyCODONE HCL [OxyCONTIN] 40 mg PO Q12H 02/14/18 02/23/18 History metroNIDAZOLE [Flagyl] 500 mg PO Q8HR #15 tab 02/18/18 02/23/18 Rx Allergies Allergy/AdvReac Type Severity Reaction Status Date / Time No Known Allergies Allergy Verified 02/23/18 18:01 Physical Exam Vitals: Vital Signs Temp Pulse Resp BP Pulse Ox 02/24/18 19:37 97.7 F 70 14 135/66 100 02/24/18 16:00 66 16 02/24/18 14:43 97 F L 66 16 129/59 94 L 02/24/18 08:00 81 16 02/24/18 07:00 97.2 F L 16 163/79 96 02/24/18 01:18 99.2 F 81 16 143/71 97 Intake and Output 02/24/18 02/24/18 02/24/18 06:59 14:59 22:59 Intake Total 620 602 340 Balance 620 602 340 Intake: Intake, IV Titration 120 140 Amount Sodium Chloride 0.9% 1, 120 140 000 ml @ 20 mls/hr IV . Q24H KARLA Rx#:[id number] Oral 500 462 340 Other: # Voids 1 63-year-old male who has some chronic pain but has no more uncomfortable than usual. HEENT: Anicteric conjunctiva are pink and moist nasal mucosa grossly intact without significant lesions, there is no thrush. Neck: The neck is supple without significant lymphadenopathy or thyromegaly. Lungs: Symmetrical air entry, few expiratory wheezes no bronchial sounds in all dullness or egophony Heart: Irregular with an audible S1 and S2 2/6 systolic murmur left sternal border radiating to the axilla without change. PMI nondisplaced no heave or thrill Abdomen: Obese but less so Positive bowel sounds soft and nontender without palpable masses or organomegaly. There was no guarding or rebound. Extremities: The upper extremities have excellent pulses they are symmetric, no significant petechiae or telangiectasia. No splinter hemorrhages were noted. Lower extremities have improvement of his chronic edema. The ulceration to the right great toe is now at 0.6 0.6 0.1 and improved. Buttocks ulceration is approximately 1 x 1 x 0.1 cm Neuro: Awake alert oriented to person place and time. There are no acute new gross focal sensory motor deficits. Results CBC & Chem 7: 02/23/18 18:00 02/23/18 18:00 Labs: Abnormal Lab Results - Last 24 Hours (Table) 02/23/18 02/24/18 02/24/18 Range/Units 18:00 00:59 07:02 POC Glucose (mg/dL) 225 H 103 H (75-99) mg/dL Hemoglobin A1c 7.1 H (4.0-6.0) % 02/24/18 02/24/18 02/24/18 Range/Units 11:51 17:03 19:58 POC Glucose (mg/dL) 173 H 226 H 189 H (75-99) mg/dL Hemoglobin A1c (4.0-6.0) % Laboratory Results WBC 14.0 k/uL (3.8-10.6) H 02/23/18 18:00 RBC 5.02 m/uL (4.30-5.90) 02/23/18 18:00 Hgb 13.5 gm/dL (13.0-17.5) 02/23/18 18:00 Hct 42.0 % (39.0-53.0) 02/23/18 18:00 MCV 83.6 fL (80.0-100.0) 02/23/18 18:00 MCH 26.9 pg (25.0-35.0) 02/23/18 18:00 MCHC 32.1 g/dL (31.0-37.0) 02/23/18 18:00 RDW 15.6 % (11.5-15.5) H 02/23/18 18:00 Plt Count 351 k/uL (150-450) 02/23/18 18:00 Neutrophils % 78 % 02/23/18 18:00 Lymphocytes % 13 % 02/23/18 18:00 Monocytes % 6 % 02/23/18 18:00 Eosinophils % 1 % 02/23/18 18:00 Basophils % 1 % 02/23/18 18:00 Neutrophils # 11.0 k/uL (1.3-7.7) H 02/23/18 18:00 Lymphocytes # 1.8 k/uL (1.0-4.8) 02/23/18 18:00 Monocytes # 0.8 k/uL (0-1.0) 02/23/18 18:00 Eosinophils # 0.2 k/uL (0-0.7) 02/23/18 18:00 Basophils # 0.1 k/uL (0-0.2) 02/23/18 18:00 PT 12.6 sec (9.0-12.0) H 02/23/18 18:00 INR 1.3 (<1.2) H 02/23/18 18:00 APTT 33.9 sec (22.0-30.0) H 02/23/18 18:00 Sodium 135 mmol/L (137-145) L 02/23/18 18:00 Potassium 4.6 mmol/L (3.5-5.1) 02/23/18 18:00 Chloride 96 mmol/L (98-107) L 02/23/18 18:00 Carbon Dioxide 28 mmol/L (22-30) 02/23/18 18:00 Anion Gap 11 mmol/L 02/23/18 18:00 BUN 19 mg/dL (9-20) 02/23/18 18:00 Creatinine 1.09 mg/dL (0.66-1.25) 02/23/18 18:00 Est GFR (CKD-EPI)AfAm 83 (>60 ml/min/1.73 sqM) 02/23/18 18:00 Est GFR (CKD-EPI)NonAf 72 (>60 ml/min/1.73 sqM) 02/23/18 18:00 Glucose 277 mg/dL (74-99) H 02/23/18 18:00 POC Glucose (mg/dL) 189 mg/dL (75-99) H 02/24/18 19:58 POC Glu Clerk Checker Nayla Lopez 02/24/18 19:[address] Glu mg/dL 157 02/23/18 18:00 Hemoglobin A1c 7.1 % (4.0-6.0) H 02/23/18 18:00 Lactic Ac Sepsis Rflx Y 02/23/18 18:41 Plasma Lactic Acid Yury 1.3 mmol/L (0.7-2.0) 02/23/18 21:53 Calcium 9.8 mg/dL (8.4-10.2) 02/23/18 18:00 Magnesium 1.5 mg/dL (1.6-2.3) L 02/23/18 18:00 Total Bilirubin 0.5 mg/dL (0.2-1.3) 02/23/18 18:00 AST 21 U/L (17-59) 02/23/18 18:00 ALT 18 U/L (21-72) L 02/23/18 18:00 Alkaline Phosphatase 92 U/L (38-126) 02/23/18 18:00 Total Creatine Kinase 22 U/L (55-170) L 02/23/18 18:00 CK-MB (CK-2) 1.7 ng/mL (0.0-2.4) 02/23/18 18:00 CK-MB (CK-2) Rel Index 7.7 02/23/18 18:00 Troponin I 0.014 ng/mL (0.000-0.034) 02/23/18 18:00 Total Protein 7.4 g/dL (6.3-8.2) 02/23/18 18:00 Albumin 4.2 g/dL (3.5-5.0) 02/23/18 18:00 Lipase 84 U/L (23-300) 02/23/18 18:00 Urine Color Yellow 02/23/18 18:55 Urine Appearance Clear (Clear) 02/23/18 18:55 Urine pH 6.5 (5.0-8.0) 02/23/18 18:55 Ur Specific [place] 1.010 (1.001-1.035) 02/23/18 18:55 Urine Protein Negative (Negative) 02/23/18 18:55 Urine Glucose (UA) Negative (Negative) 02/23/18 18:55 Urine Ketones Negative (Negative) 02/23/18 18:55 Urine Blood Negative (Negative) 02/23/18 18:55 Urine Nitrite Negative (Negative) 02/23/18 18:55 Urine Bilirubin Negative (Negative) 02/23/18 18:55 Urine Urobilinogen <2.0 mg/dL (<2.0) 02/23/18 18:55 Ur Leukocyte Esterase Negative (Negative) 02/23/18 18:55 Assessment and Plan (1) Hx of Clostridium difficile infection Narrative/Plan: 63-year-old male presents to Hospital feeling poorly pseudomonas current care physician was concerned to dehydration, was admitted and is now receive some hydration is feeling better. Was having some vague abdominal pain that is improved.He and tenderness on exam. Denies any significant amount of diarrhea. Has completed his course of antibiotic microbial therapy for his C. diff colitis. It is noted not having diarrhea or bloody or tarry stools at this time. He is very fatigued has malaise and has depressed mood. Does not related his pain is uncontrolled. His frustrated status is stable his functional status is that of severe fatigue and poor exercise tolerance with noted significant cardiomyopathy. It is time no evidence of any significant infection . Wound care will be ordered. Probiotic daily. His is already on Cymbalta, may need an add on medication to help with his significant or mood. Current Visit: Yes Status: Acute Code(s): Z86.19 - PERSONAL HISTORY OF OTHER INFECTIOUS AND PARASITIC DISEASES SNOMED Code(s): 217482099 (2) Fatigue Current Visit: Yes Status: Acute Code(s): R53.83 - OTHER FATIGUE SNOMED Code(s): 78646567 (3) Depression Current Visit: Yes Status: Acute Code(s): F32.9 - MAJOR DEPRESSIVE DISORDER , SINGLE EPISODE, UNSPECIFIED SNOMED Code(s): 81477763
[2018-02-25] MEDS: PREGABALIN 50 MG CAP PO SCH (00:22)
[2018-02-25] MEDS: SODIUM CHLORIDE 0.9% 1,000 ML IV SCH (00:22)
[2018-02-25] MEDS: metroNIDAZOLE 500 MG TAB PO SCH ×3 (06:24→22:26)
[2018-02-25 07:35] LABS: Glucose,Whole Blood 166 mg/dL (75-99)
[2018-02-25] MEDS: INSULIN ASPART 100 UNIT/ML 1 ML 10 ML VIAL SQ SCH ×8 (10:12→22:08)
[2018-02-25] MEDS: ISOSORBIDE MONONITRATE ER 30 MG TAB.ER.24H PO SCH (10:13)
[2018-02-25] MEDS: oxyCODONE ER 20 MG TAB.ER.12H PO SCH ×2 (10:13→22:07)
[2018-02-25] MEDS: PREGABALIN 75 MG CAP PO SCH ×2 (10:14→22:08)
[2018-02-25] MEDS: metFORMIN 500 MG TAB PO SCH ×2 (10:14→17:34)
[2018-02-25] MEDS: LOSARTAN 25 MG TAB PO SCH (10:14)
[2018-02-25] MEDS: PANTOPRAZOLE 40 MG/10 ML VIAL IVP SCH (10:15)
[2018-02-25] MEDS: ALLOPURINOL 100 MG TAB PO SCH (10:24)
[2018-02-25] MEDS: CLOPIDOGREL 75 MG TAB PO SCH (10:24)
[2018-02-25] MEDS: LACTOBACILLUS ACIDOPH & BULGAR 1 EACH PACKET PO SCH ×2 (10:24→22:08)
[2018-02-25] MEDS: METOPROLOL TARTRATE 50 MG TAB PO SCH ×2 (10:24→22:07)
[2018-02-25] MEDS: DULoxetine HCL 60 MG CAPSULE.DR PO SCH (10:24)
[2018-02-25] MEDS: METOCLOPRAMIDE 5 MG TAB PO SCH ×3 (10:26→17:36)
[2018-02-25] MEDS: FERROUS SULFATE 325 MG TAB PO SCH (10:27)
[2018-02-25] MEDS: TAMSULOSIN 0.4 MG CAP.ER.24H PO SCH (10:33)
[2018-02-25] MEDS: INSULIN DETEMIR 100 UNIT/ML 10 ML VIAL SQ SCH ×2 (11:34→22:07)
[2018-02-25 12:11] LABS: Glucose,Whole Blood 263 mg/dL (75-99)
[2018-02-25 17:16] LABS: Glucose,Whole Blood 123 mg/dL (75-99)
[2018-02-25] MEDS: RIVAROXABAN 15 MG TAB PO SCH (17:34)
[2018-02-25 20:15] LABS: Glucose,Whole Blood 138 mg/dL (75-99)
--- NOTE | 2018-02-26 00:20 | PN ---
PROGRESS NOTE DATE OF SERVICE: February 25, 2018. PRESENTING COMPLAINT: Tired. INTERVAL HISTORY: This patient is feeling weak, tired, run down, feeling better. The patient feels rather depressed and feels he cannot come out it. He wants to see a psychiatrist. Otherwise, tolerating a diet. REVIEW OF SYSTEMS: Done for constitutional, cardiovascular, GI, pulmonary, relevant findings as above. CURRENT MEDICATIONS: Reviewed. PHYSICAL EXAMINATION: VITAL SIGNS: Temperature 97.6, pulse 60, respirations 18, blood pressure 102/68, pulse ox 97% on room air. GENERAL APPEARANCE: Lying in bed, awake. EYES: Pupils equal. Conjunctivae normal. HEENT: External appearance of nose and ears normal. Oral cavity normal. NECK: JVD not raised. Mass not palpable. LUNGS: Decreased breath sounds. CARDIOVASCULAR: 1st and 2nd sounds normal. No edema. ABDOMEN: Soft, nontender. Liver and spleen not palpable. PSYCHIATRY: Alert and oriented x3. Mood and affect normal. EXTREMITIES: Left foot wound, sacral wound. The patient does complain of feeling a bit low. INVESTIGATIONS: Accu-Cheks are noted. ASSESSMENT: 1. Acute dehydration and hypotension probably from decreased oral intake, which patient clinically responded coronary artery disease with stent to the circumflex. 2. Chronic obstructive pulmonary disease in an ex-smoker. 3. Diabetes mellitus type 2, chronically on insulin. 4. Gastroesophageal reflux disease. 5. Hyperlipidemia. 6. Essential hypertension. 7. Primary osteoarthritis. 8. Peripheral artery disease peripheral stents. 9. History of amputation of the right second toe. 10.Recent acute C diff colitis for which patient had been on Flagyl. 11.Left big toe wound healing. 12.Sacral wound, healing. 13.Depression, somewhat uncontrolled. PLAN: Continue medication and treatment plan. Overall, patient doing better, but from a psych standpoint, we will get a psychiatry evaluation as patient feels very low. MMODL / IJN: [id number] /
[2018-02-26] MEDS: SODIUM CHLORIDE 0.9% 1,000 ML IV SCH (00:23)
[2018-02-26] MEDS: metroNIDAZOLE 500 MG TAB PO SCH ×2 (06:05→13:04)
[2018-02-26 07:00] LABS: Glucose,Whole Blood 180 mg/dL (75-99)
[2018-02-26 07:18] LABS: Basophils # (A) 0.1 k/uL (0-0.2); Basophils % (A) 1 %; Eosinophils # (A) 0.4 k/uL (0-0.7); Eosinophils % (A) 3 %; HCT 37.1 % (39.0-53.0); HGB 11.5 gm/dL (13.0-17.5); Hypochromasia Slight; Lymphocytes # (A) 2.5 k/uL (1.0-4.8); Lymphocytes % (A) 24 %; MCHC 31.1 g/dL (31.0-37.0); MCV 83.6 fL (80.0-100.0); Mean Platelet Volume 7.7; Monocytes # (A) 0.5 k/uL (0-1.0); Monocytes % (A) 5 %; Neutrophils % (A) 66 %; Platelet Count 269 k/uL (150-450); RBC 4.44 m/uL (4.30-5.90); RDW 15.5 % (11.5-15.5); WBC 10.7 k/uL (3.8-10.6)
[2018-02-26 07:30] LABS: Anion Gap 7 mmol/L; Blood Urea Nitrogen 17 mg/dL (9-20); Calcium 9.4 mg/dL (8.4-10.2); Carbon Dioxide 27 mmol/L (22-30); Chloride 104 mmol/L (98-107); Glucose 175 mg/dL (74-99); Potassium 4.8 mmol/L (3.5-5.1); Sodium 138 mmol/L (137-145)
[2018-02-26] MEDS: METOCLOPRAMIDE 5 MG TAB PO SCH ×2 (08:11→13:06)
[2018-02-26] MEDS: PREGABALIN 75 MG CAP PO SCH ×2 (08:11→21:08)
[2018-02-26] MEDS: metFORMIN 500 MG TAB PO SCH ×2 (08:11→18:05)
[2018-02-26] MEDS: FERROUS SULFATE 325 MG TAB PO SCH (08:11)
[2018-02-26] MEDS: LOSARTAN 25 MG TAB PO SCH (08:11)
[2018-02-26] MEDS: PANTOPRAZOLE 40 MG TABLET PO SCH (08:11)
[2018-02-26] MEDS: TAMSULOSIN 0.4 MG CAP.ER.24H PO SCH (08:11)
[2018-02-26] MEDS: oxyCODONE ER 20 MG TAB.ER.12H PO SCH ×2 (08:12→21:08)
[2018-02-26] MEDS: ALLOPURINOL 100 MG TAB PO SCH (08:12)
[2018-02-26] MEDS: METOPROLOL TARTRATE 50 MG TAB PO SCH ×2 (08:12→21:08)
[2018-02-26] MEDS: DULoxetine HCL 60 MG CAPSULE.DR PO SCH (08:12)
[2018-02-26] MEDS: LACTOBACILLUS ACIDOPH & BULGAR 1 EACH PACKET PO SCH ×2 (08:13→21:08)
[2018-02-26] MEDS: CLOPIDOGREL 75 MG TAB PO SCH (08:13)
[2018-02-26] MEDS: INSULIN ASPART 100 UNIT/ML 1 ML 10 ML VIAL SQ SCH ×8 (08:13→20:59)
[2018-02-26] MEDS: ISOSORBIDE MONONITRATE ER 30 MG TAB.ER.24H PO SCH (08:13)
[2018-02-26] MEDS: INSULIN DETEMIR 100 UNIT/ML 10 ML VIAL SQ SCH ×2 (08:26→21:07)
[2018-02-26 11:50] LABS: Glucose,Whole Blood 138 mg/dL (75-99)
[2018-02-26 17:23] LABS: Glucose,Whole Blood 167 mg/dL (75-99)
--- NOTE | 2018-02-26 17:24 | DS ---
DISCHARGE SUMMARY DATE OF SERVICE: 02/26/2018 PRESENTING COMPLAINT: Feeling low. INTERVAL HISTORY: This patient presented weak, tired, run down, somewhat depressed. Awaiting a psychiatry consultation. Otherwise feeling better up to the bathroom. Wounds are healing well. Bowels are controlled. REVIEW OF SYSTEMS: Done for constitutional, cardiovascular, GI, pulmonary, psychiatry relevant findings as above. CURRENT MEDICATIONS: Reviewed. PHYSICAL EXAMINATION: VITAL SIGNS: Temperature 98.2, pulse 70, respiratory rate 17, blood pressure 150/69, pulse ox 97% on room air. GENERAL APPEARANCE: Sitting up. Comfortable. EYES: Pupils equal. Conjunctivae normal. HEENT: External appearance of nose and ears normal. Oral cavity normal. NECK: JVD not raised. Mass not palpable. RESPIRATORY: Effort normal. LUNGS: Decreased breath sounds. CARDIOVASCULAR: 1st and 2nd sounds normal. No edema. ABDOMEN: Soft, nontender. Liver and spleen not palpable. PSYCHIATRY: Alert and orient x3. Mood and affect normal. EXTREMITIES: Left toe wounds, sacral wound healing well. PSYCHIATRY: Patient is depressed. INVESTIGATIONS: White count 10.7, hemoglobin 11.5, potassium 4.8. BUN and creatinine is normal. ASSESSMENT: 1. Acute dehydration, hypotension probably from decreased oral intake to which the patient has responded. 2. Coronary artery disease with stent to the circumflex. 3. Chronic obstructive pulmonary disease in an ex-smoker. 4. Diabetes mellitus type 2, chronically on insulin. 5. Gastroesophageal reflux disease. 6. Hyperlipidemia. 7. Essential hypertension. 8. Primary osteoarthritis. 9. Peripheral artery disease with peripheral stents. 10.History of amputation of the right 2nd big toe. 11.Recent acute C diff colitis. The patient had been on Flagyl. Left big toe wound healing. 12.Sacral wound, chronic healing. 13. uncontrolled. PLAN: Continue current medication and treatment plan. Awaiting Psychiatry evaluation. The patient is reassured. Follow. MMODL / IJN: [id number] /
--- NOTE | 2018-02-26 17:24 | P.CN ---
Psychiatric Consult - . Consult date: 02/26/18 Consult:: 02/26/18 17:24 Identifying information Patient is 63-year-old male with multiple medical conditions admitted to due to dehydration. Psychiatry was consulted to evaluate the patient for depression Chief complaint Feeling hopeless, worthless . History of presenting illness Patient claims to have been started on cymbalta by his primary care physician for depression two years ago. He currently reports having racing thoughts, irritability, anger outbursts and poor frustration tolerance. He says he enjoys hunting but cannot go hunting anymore due to his physical condition. He reports feeling his life is a failure and constantly worries about and fear of . He denies current suicidal or homicidal ideations stating if he kills himself he will go to hell. He wants to live for his children and grandchildren. He says he is in constant pain and takes pain medications round the clock. He also reports worrying about paying all his medical bills. He claims to have been hospitalized multiple times and reports to have almost but survived fortunately. He denies current symptoms of psychosis. He says he has been bedridden since october of 2016 and claims it is really hard for him to be sedentary like that. He says every little thing gets him upset and angry. Past psychiatric history Denies psychiatric hospitalizations. Has been taking cymbalta through primary care physician for the past two years. Substance use history Reports use of alcohol, marijuana and nicotine. He claims to have stopped using them 10 years ago. Legal problems Unknown Family psychiatric treatment history Unknown Medical history Per medical records patient a year ago had profound illness where he had cardiogenic shock and fortunately recovered from his profound illness but had extremely large pressure ulceration to his coccyx is now almost completely healed. Recent injury to his toe resulted ulceration is also considerably improved. He was hospitalized earlier this month with diarrhea C. difficile toxin was positive. Coronary Artery Disease (CAD), COPD, CVA/TIA, Diabetes Mellitus, Deep Vein Thrombosis (DVT), GERD/Reflux, Hyperlipidemia, Hypertension, Myocardial Infarction (CO), Osteoarthritis (OA), Pneumonia, Pulmonary Embolus (PE), Skin Disorder Mental status exam Patient was sitting at the edge of his bed in no apparent distress. He is dressed in hospital gown. He maintains good eye contact. No abnormal movements noted. His speech is normal rate, tone and volume. His mood is reported as sad and frustrated and affect constricted. He denies current auditory or visual hallucinations. He denies paranoia. He is alert and oriented x 4. He denies current suicidal or homicidal ideations. Diagnosis Mood disorder NOS Impression 63-year-old male with multiple medical conditions admitted to due to dehydration. He has history of depression and takes cymbalta through primary care physician. He is experiencing mood swings, racing thoughts, insomnia, irritability and poor frustration tolerance due to his inability to enjoy his hobbies and interests secondary due to his poor physical health. Plan Continue cymbalta for depression Will recommend depakote er 250mg po qhs to help him with racing thoughts, irritability, mood swingsanger outbursts and associated insomnia Will recommend out patient H follow up which will allow him to receive psychotherapy, case management in addition to pharmacotherapy. Thank you for giving us the opportunity in taking care of this interesting patient.
[2018-02-26] MEDS: RIVAROXABAN 15 MG TAB PO SCH (18:05)
[2018-02-26 19:48] LABS: Glucose,Whole Blood 145 mg/dL (75-99)
[2018-02-27 01:17] VITALS: RESP 16
[2018-02-27 07:10] LABS: Glucose,Whole Blood 207 mg/dL (75-99)
[2018-02-27 07:27] VITALS: BP 131/72; PULSE 73; TEMP 98.8
[2018-02-27] MEDS: PREGABALIN 75 MG CAP PO SCH (07:58)
[2018-02-27] MEDS: metFORMIN 500 MG TAB PO SCH (07:58)
[2018-02-27] MEDS: PANTOPRAZOLE 40 MG TABLET PO SCH (07:58)
[2018-02-27] MEDS: TAMSULOSIN 0.4 MG CAP.ER.24H PO SCH (07:58)
[2018-02-27] MEDS: LOSARTAN 25 MG TAB PO SCH (07:58)
[2018-02-27] MEDS: CLOPIDOGREL 75 MG TAB PO SCH (07:58)
[2018-02-27] MEDS: ALLOPURINOL 100 MG TAB PO SCH (07:58)
[2018-02-27] MEDS: DULoxetine HCL 60 MG CAPSULE.DR PO SCH (07:58)
[2018-02-27] MEDS: FERROUS SULFATE 325 MG TAB PO SCH (07:58)
[2018-02-27] MEDS: ISOSORBIDE MONONITRATE ER 30 MG TAB.ER.24H PO SCH (07:58)
[2018-02-27] MEDS: INSULIN ASPART 100 UNIT/ML 1 ML 10 ML VIAL SQ SCH ×4 (07:59→12:32)
[2018-02-27] MEDS: METOPROLOL TARTRATE 50 MG TAB PO SCH (07:59)
[2018-02-27] MEDS: LACTOBACILLUS ACIDOPH & BULGAR 1 EACH PACKET PO SCH (07:59)
[2018-02-27] MEDS: oxyCODONE ER 20 MG TAB.ER.12H PO SCH (08:00)
[2018-02-27 10:18] LABS: Anion Gap 8 mmol/L; Blood Urea Nitrogen 21 mg/dL (9-20); Calcium 9.8 mg/dL (8.4-10.2); Carbon Dioxide 27 mmol/L (22-30); Chloride 103 mmol/L (98-107); Glucose 168 mg/dL (74-99); Potassium 5.6 mmol/L (3.5-5.1); Sodium 138 mmol/L (137-145)
[2018-02-27 11:01] VITALS: BMI 34.5
[2018-02-27] MEDS: INSULIN DETEMIR 100 UNIT/ML 10 ML VIAL SQ SCH (11:42)
[2018-02-27 11:52] LABS: Glucose,Whole Blood 226 mg/dL (75-99)
--- NOTE | 2018-02-27 14:06 | PN ---
PROGRESS NOTE ADDENDUM: DATE OF SERVICE: 02/26/2018 My note dictated yesterday on 02/26/2018 is actually a progress note and not a discharge summary. This is a correction. MMODL / IJN: [id number] /
[2018-02-27] MEDS ORDERED: DIVALPROEX ER 250 MG TAB.ER.24H PO SCH (21:00)
--- NOTE | 2018-02-28 | DS ---
DISCHARGE SUMMARY DATE OF ADMISSION: February 23, 2018. DATE OF DISCHARGE: February 27, 2018. FINAL DIAGNOSES: 1. Acute dehydration including causing hypotension from decreased oral intake, present on admission. 2. Coronary artery disease with stent to the circumflex. 3. Chronic obstructive pulmonary disease in an ex-smoker. 4. Diabetes mellitus type 2, chronically on insulin. 5. Gastroesophageal reflux disease. 6. Hyperlipidemia. 7. Essential hypertension. 8. Primary osteoarthritis. 9. Peripheral artery disease with peripheral stents. 10.History of amputation of 2nd right toe. 11.Recent acute C diff colitis. The patient already had completed a course of Flagyl. 12.Left big toe wound healing well. 13.Sacral wound present on admission, chronic healing. 14.Mood disorder, not otherwise specified. CONSULTATION: Dr. Mujica from Infectious Disease, Dr. Zamorano from Psychiatry. HOSPITAL COURSE: This is a patient recently with C diff, presented weak, tired, and run down. Was dehydrated, hypotensive, did well with fluids and diet actually improved. Up and about in the hallway. Seen by psychiatrist Dr. Zamorano who diagnosed him with mood disorder, not otherwise specified. Added Depakene at night. Seen by Dr. Mujica. Patient already had completed his course of Flagyl. The sacral wound has been healing well. PHYSICAL EXAMINATION: Temperature 98.8, pulse 93, respiratory rate 16, blood pressure 130/72, pulse ox 98% on room air. Lungs decreased breath sounds. Cardiovascular: 1st and second sounds normal. DISCHARGE MEDICATIONS: 1. Iron 325 mg p.o. daily. 2. Vitamin D3 1000 units p.o. daily. 3. Lasix 40 mg p.o. b.i.d. 4. Lantus 35 units subcu b.i.d. 5. Imdur ER 30 mg p.o. daily. 6. Cozaar 25 mg p.o. daily. 7. Lyrica 150 mg p.o. b.i.d. 8. ProAir 1-2 puffs q.6h p.r.n. 9. Cymbalta 60 mg p.o. daily. 10.Acidophilus 3 tablets p.o. daily. 11.Omeprazole 40 mg p.o. daily. 12.Plavix 75 mg p.o. daily. 13.Xarelto 50 mg p.o. with supper. 14.Allopurinol 100 mg p.o. daily. 15.Lopressor 100 mg p.o. b.i.d. 16.Flomax 0.4 mg p.o. daily. 17.Glucophage 500 mg p.o. b.i.d. 18.OxyContin 40 mg p.o. q.12. 19.Depakote ER 250 mg p.o. q.h.s. new medications. 20.Insulin lispro 10 units subcu a.c. t.i.d. FOLLOWUP: With [facility] in 2 weeks. Follow up with Dr. Naqvi in 3 days. [facility] to follow. Copy to Dr. Naqvi. MMODL / MIHAIN: [id number] /
== END 2018-02-27 14:55 | disposition home health service (06) | DRG 641 ==
LOC: EC 17:03 → 4SSUR 20:40
PROVIDERS: ADMIT Hospitalist; ATTEND Hospitalist
DX: E86.0 Dehydration (principal); A04.72 Enterocolitis due to Clostridium difficile, not specified as recurrent; I50.22 Chronic systolic (congestive) heart failure; E11.51 Type 2 diabetes mellitus with diabetic peripheral angiopathy without gangrene; E78.5 Hyperlipidemia, unspecified; F32.9 Major depressive disorder, single episode, unspecified; I11.0 Hypertensive heart disease with heart failure; I25.10 Atherosclerotic heart disease of native coronary artery without angina pectoris; I25.2 Old myocardial infarction; J44.9 Chronic obstructive pulmonary disease, unspecified; K21.9 Gastro-esophageal reflux disease without esophagitis; F41.9 Anxiety disorder, unspecified; L97.529 Non-pressure chronic ulcer of other part of left foot with unspecified severity; E11.621 Type 2 diabetes mellitus with foot ulcer; L89.152 Pressure ulcer of sacral region, stage 2; M19.91 Primary osteoarthritis, unspecified site; F39 Unspecified mood [affective] disorder; I95.9 Hypotension, unspecified; Z79.01 Long term (current) use of anticoagulants; Z79.02 Long term (current) use of antithrombotics/antiplatelets; Z79.4 Long term (current) use of insulin; Z79.899 Other long term (current) drug therapy; Z82.49 Family history of ischemic heart disease and other diseases of the circulatory system; Z86.711 Personal history of pulmonary embolism; Z86.73 Personal history of transient ischemic attack (TIA), and cerebral infarction without residual deficits; Z87.891 Personal history of nicotine dependence; Z95.5 Presence of coronary angioplasty implant and graft; Z80.9 Family history of malignant neoplasm, unspecified; Z86.718 Personal history of other venous thrombosis and embolism; Z87.19 Personal history of other diseases of the digestive system; Z89.421 Acquired absence of other right toe(s); Z16.24 Resistance to multiple antibiotics
CPT/HCPCS: 36415; 71046; 80048; 80053; 81003; 82550; 82553; 83036; 83605; 83690; 83735; 84484; 85025; 85610; 85730; 93005; 96361; 96365; 96367; 99285

== ENCOUNTER 2018-06-02 04:32 | Inpatient (IN) | payer MEDICARE ==
[2018-06-02 05:32] LABS: Basophils # (A) 0.1 k/uL (0-0.2); Basophils % (A) 1 %; Eosinophils # (A) 0.3 k/uL (0-0.7); Eosinophils % (A) 3 %; HCT 35.4 % (39.0-53.0); HGB 11.5 gm/dL (13.0-17.5); Lymphocytes # (A) 2.3 k/uL (1.0-4.8); Lymphocytes % (A) 24 %; MCH 27.9 pg (25.0-35.0); MCHC 32.4 g/dL (31.0-37.0); Monocytes # (A) 0.7 k/uL (0-1.0); Monocytes % (A) 7 %; Neutrophils # (A) 6.3 k/uL (1.3-7.7); Neutrophils % (A) 64 %; Platelet Count 307 k/uL (150-450); RBC 4.11 m/uL (4.30-5.90); RDW 15.6 % (11.5-15.5); WBC 9.9 k/uL (3.8-10.6)
[2018-06-02 05:41] LABS: ALT 26 U/L (21-72); AST 17 U/L (17-59); Albumin 3.6 g/dL (3.5-5.0); Alkaline Phosphatase 76 U/L (38-126); Anion Gap 4 mmol/L; Blood Urea Nitrogen 23 mg/dL (9-20); Calcium 9.3 mg/dL (8.4-10.2); Carbon Dioxide 31 mmol/L (22-30); Chloride 105 mmol/L (98-107); Glucose 219 mg/dL (74-99); Potassium 5.3 mmol/L (3.5-5.1); Sodium 140 mmol/L (137-145); Total Bilirubin 0.5 mg/dL (0.2-1.3); Total Protein 6.3 g/dL (6.3-8.2)
[2018-06-02 05:43] LABS: INR 0.9 (<1.2); Prothrombin Time 9.7 sec (9.0-12.0)
--- NOTE | 2018-06-02 05:53 | XR ---
EXAM: XR Chest, 2 Views CLINICAL HISTORY: Chest pain. TECHNIQUE: Frontal and lateral views of the chest. COMPARISON: . FINDINGS: Lungs: Mild hazy prominence of interstitial markings raises concern for mild pulmonary vascular congestion/pulmonary interstitial edema. Mild peribronchial cuffing is likely reactive to this finding. Infectious versus inflammatory airways disease cannot be definitively excluded. Right basilar atelectasis and/or infiltrates. Flattening of both hemidiaphragms suggestive of obstructive pulmonary disease. Pleural space: No pleural effusions. No pneumothorax. Heart: Unremarkable. No cardiomegaly. Mediastinum: Essentially unchanged. Bones/joints: Unremarkable. IMPRESSION: 1. Findings suggestive of mild pulmonary vascular congestion/pulmonary interstitial edema. 2. Mild peribronchial cuffing is likely reactive to this finding. Infectious versus inflammatory airways disease cannot be definitively excluded. 3. Right basilar atelectasis and/or infiltrates. 4. Flattening of both hemidiaphragms suggestive of obstructive pulmonary disease.
[2018-06-02 06:14] LABS: Troponin I 0.018 ng/mL (0.000-0.034)
--- NOTE | 2018-06-02 08:02 | ED ---
Chest Pain HPI - General Chief Complaint: Chest Pain Stated Complaint: chest pain Time Seen by Provider: 06/02/18 04:37 Source: patient, EMS Mode of arrival: ambulatory Limitations: no limitations - History of Present Illness Initial Comments: This patient is 63-year-old man with history of previous coronary artery disease who presents to be evaluated for chest pain. Patient hadn't been trying to go to sleep and noticed that there was substernal chest pressure. When it did not resolve he called EMS who has brought him here. The patient states that he did feel a little better with the oxygen that EMS administered. The patient describes pain as pressure, constant, without worsening symptoms, and again slightly better with oxygen. It is moderate intensity. He was also feeling a little nauseated, no other anginal equivalent. MD Complaint: chest pain Onset/Timin -: hour(s) Onset: during rest Pain Location: substernal Pain Radiation: none Severity: moderate Quality: heaviness Consistency: constant Improves With: nothing Worsens With: nothing Anginal Symptoms: nausea Treatments Prior to Arrival: aspirin, nitroglycerin, oxygen - Related Data Home Medications Medication Instructions Recorded Confirmed Ferrous Sulfate [Iron (65 MG 325 mg PO DAILY 04/05/17 06/02/18 Elemental)] Cholecalciferol [Vitamin D3] 1,000 unit PO DAILY 09/19/17 06/02/18 Furosemide [Lasix] 40 mg PO BID 09/19/17 06/02/18 Insulin Glargine,Hum.rec.anlog 35 unit SQ BID 09/19/17 06/02/18 [[place] Solostsade] Isosorbide Mononitrate ER [Imdur] 30 mg PO DAILY 09/19/17 06/02/18 Losartan [Cozaar] 25 mg PO DAILY 09/19/17 06/02/18 Pregabalin [Lyrica] 150 mg PO BID 09/19/17 06/02/18 Albuterol Sulfate [Proair Hfa] 1 - 2 puff INHALATION RT-Q6H PRN 09/26/17 DULoxetine HCL [Cymbalta] 60 mg PO DAILY 09/26/17 06/02/18 Lactobacillus Acidophilus 3 tab PO DAILY 09/26/17 06/02/18 [Acidophilus] Omeprazole 40 mg PO DAILY 09/26/17 06/02/18 Metoprolol Tartrate [Lopressor] 100 mg PO BID 02/14/18 06/02/18 Tamsulosin HCl [Flomax] 0.4 mg PO DAILY 02/14/18 06/02/18 metFORMIN HCL [Glucophage] 500 mg PO BID 02/14/18 06/02/18 oxyCODONE HCL [OxyCONTIN] 40 mg PO Q12H 02/14/18 06/02/18 ALPRAZolam [Xanax] 0.25 mg PO BID PRN 05/16/18 06/02/18 Sulfamethox-Tmp 800-160Mg [Bactrim 1 tab PO BID 05/16/18 06/02/18 DS 800-160 mg] Previous Rx's Medication Instructions Recorded Clopidogrel [Plavix] 75 mg PO DAILY #30 tab 09/28/17 Rivaroxaban [Xarelto] 15 mg PO W/SUPPER #30 tab 09/28/17 Allopurinol [Zyloprim] 100 mg PO DAILY #30 tablet 11/15/17 Divalproex ER [Depakote ER] 250 mg PO HS #30 tab.er.24h 02/27/18 Insulin Lispro [humaLOG Kwikpen] 10 unit SQ AC-TID #0 02/27/18 Allergies Allergy/AdvReac Type Severity Reaction Status Date / Time No Known Allergies Allergy Verified 06/02/18 04:38 Review of Systems ROS Statement: Those systems with pertinent positive or pertinent negative responses have been documented in the HPI. ROS Other: All systems not noted in ROS Statement are negative. Constitutional: Denies: fever, chills Respiratory: Denies: cough, dyspnea, wheezes Cardiovascular: Reports: chest pain. Denies: palpitations, orthopnea, edema, syncope Gastrointestinal: Reports: nausea. Denies: abdominal pain, vomiting, diarrhea, melena, hematochezia Musculoskeletal: Denies: back pain Skin: Denies: rash Neurological: Denies: headache, weakness EKG Findings - EKG Results: EKG: interpreted by ROOSEVELT, sinus rhythm (With multiple PVCs, rate approximately 87 bpm), normal axis, normal QRS, normal ST/T Past Medical History Past Medical History: Coronary Artery Disease (CAD), COPD, CVA/TIA, Diabetes Mellitus, Deep Vein Thrombosis (DVT), GERD/Reflux, Hyperlipidemia, Hypertension , Myocardial Infarction (PR), Osteoarthritis (OA), Pneumonia, Pulmonary Embolus (PE), Skin Disorder Additional Past Medical History / Comment(s): fell May 2013 and hit head and had a brain bleed-from possible TIA, c-diff, myopathy, tia/cva- no effects, hx ulcer, psoriasis, pressure wound sacral area after being hospitalized for toe amputation in 2016. lt great toe wound. Last Myocardial Infarction Date:: 08/2017 History of Any Multi-Drug Resistant Organisms: C-DIFF, MRSA Date of last positivie culture/infection: 01/24/18/ mrsa?2015 or 2016 thinks it was at [facility](per pt) MDRO Source:: stool/ source unk Past Surgical History: Heart Catheterization With Stent, Orthopedic Surgery, Tonsillectomy Additional Past Surgical History / Comment(s): bunionectomy, amy shoulder rotator cuff, multiple heart caths and mult heart stents,, LEFT LEG ARTERY X2 STENTS. COLONOSCOPY, amputation right 2nd toe , surgical debridement of left great toe dec 2017 Past Anesthesia/Blood Transfusion Reactions: Motion Sickness Additional Past Anesthesia/Blood Transfusion Reaction / Comment(s): pt stated has had a blood transfusion in past-no known reaction Date of Last Stent Placement:: 2016 Past Psychological History: Anxiety Smoking Status: Former smoker Past Alcohol Use History: Heavy Past Drug Use History: None Reported - Past Family History Mother Family Medical History: Cancer, Coronary Artery Disease (CAD) Father Family Medical History: Coronary Artery Disease (CAD) General Exam Limitations: no limitations General appearance: alert, in no apparent distress, obese Head exam: Present: atraumatic, normocephalic Eye exam: Present: normal appearance. Absent: scleral icterus, conjunctival injection ENT exam: Present: normal oropharynx Neck exam: Present: normal inspection, full ROM Respiratory exam: Present: normal lung sounds bilaterally. Absent: respiratory distress, wheezes, rales, rhonchi, stridor Cardiovascular Exam: Present: regular rate, normal rhythm, normal heart sounds. Absent: systolic murmur, diastolic murmur, rubs, gallop GI/Abdominal exam: Present: soft. Absent: distended, tenderness, guarding, rebound, mass Extremities exam: Present: normal inspection, normal capillary refill. Absent: pedal edema, calf tenderness Back exam: Present: normal inspection. Absent: CVA tenderness (R), CVA tenderness (L) Neurological exam: Present: alert Skin exam: Present: warm, dry, intact, normal color. Absent: rash Course Vital Signs 06/02/18 06/02/18 06/02/18 04:35 06:10 07:17 Temperature 99.4 F Pulse Rate 90 93 82 Respiratory 20 20 16 Rate Blood Pressure 172/89 105/90 117/86 O2 Sat by Pulse 99 98 100 Oximetry Disposition Clinical Impression: Chest pain, CHF exacerbation Disposition: ADMITTED IP TO THIS HOSP Is patient prescribed a controlled substance at d/c from ED?: No Referrals: Tr Naqvi DO [Primary Care Provider] - 1-2 days
[2018-06-02] MEDS ORDERED: NITROGLYCERIN SL TABS 0.4 MG TAB SUBLINGUAL PRN (09:45)
[2018-06-02] MEDS ORDERED: ISOSORBIDE MONONITRATE ER 30 MG TAB.ER.24H PO SCH (10:00)
[2018-06-02] MEDS ORDERED: LOSARTAN 25 MG TAB PO SCH (10:00)
[2018-06-02 11:27] LABS: Glucose,Whole Blood 153 mg/dL (75-99)
[2018-06-02] MEDS: oxyCODONE ER 20 MG TAB.ER.12H PO SCH ×2 (11:36→20:16)
[2018-06-02] MEDS: METOPROLOL TARTRATE 50 MG TAB PO SCH ×2 (11:44→20:19)
[2018-06-02] MEDS: PANTOPRAZOLE 40 MG TABLET PO SCH (11:45)
[2018-06-02] MEDS: TAMSULOSIN 0.4 MG CAP.ER.24H PO SCH (11:45)
[2018-06-02] MEDS: INSULIN ASPART (NovoLOG) 100 UNIT/ML VIAL SQ SCH ×2 (11:46→18:09)
[2018-06-02] MEDS: ALLOPURINOL 100 MG TAB PO SCH (11:47)
[2018-06-02] MEDS: CLOPIDOGREL 75 MG TAB PO SCH (11:48)
[2018-06-02] MEDS: FERROUS SULFATE 325 MG TAB PO SCH (11:49)
[2018-06-02] MEDS: DULoxetine HCL 60 MG CAPSULE.DR PO SCH (11:49)
[2018-06-02 11:55] LABS: Creatine Kinase MB 1.9 ng/mL (0.0-2.4); Troponin I 0.023 ng/mL (0.000-0.034)
[2018-06-02] MEDS: FUROSEMIDE 40 MG TAB PO SCH ×2 (12:34→17:04)
--- NOTE | 2018-06-02 13:01 | P.CRDCN ---
History of Present Illness History of present illness: This is a pleasant 63-year-old female past medical history significant for coronary artery disease status post multivessel PCI, hypertension, dyslipidemia, diabetes mellitus, COPD, chronic diastolic dysfunction hx of PE/DVT in the past on manager intermediate anti-coagulation and obesity. He follows in the office with Dr. Martinez. Potassium consultation for symptoms of chest discomfort. He states he went to bed at midnight feeling in his normal state of health. He woke up around 2:00 in the morning with a pressure patient in the midsternal region. It is described as a heavy pressure type sensation with radiation into bilateral jaw and left scapular region. He decided to check his blood pressure home which came to be approximately 215/110 per the patient. He laid back down and attempted to get some rest for approximately 30 minutes. He was unable to get comfortable so he got up again checked his blood pressure which was continuing to be elevated and he continued with chest discomfort. He took 4 baby aspirin and came to the emergency department. Upon arrival to the emergency department he was continued to have ongoing chest discomfort and was given sublingual nitroglycerin. This did relieve his chest discomfort however he still complains of a discomfort in the mid scapular region. He states while he was having this chest discomfort he felt mildly nauseated and slightly dizzy. He denies associated shortness of breath or palpitations. He also denies PND or orthopnea. EKG on arrival reveals sinus mechanism with frequent PVCs with no acute ST-T wave abnormalities noted. Repeat EKG reveals sinus mechanism. Chest x-ray suggestive of mild pulmonary vascular congestion/pulmonary interstitial edema, mild parabronchial cuffing, right basilar atelectasis and/ or infiltrate suspected and flattening of both hemidiaphragms suggestive of COPD. Laboratory data reviewed, cardiac enzymes negative 2. Currently maintained on Plavix 75 mg, losartan 25 mg daily, Imdur 30 mg daily, Lasix 40 mg twice a day, Lopressor 100 mg twice a day and xarelto 15 mg daily. Most recent echocardiogram obtained August 2017 reveals preserved left ventricular systolic function with ejection fraction 50-55%, mildly dilated left atrium, mild mitral regurgitation, mild tricuspid regurgitation and mild pulmonary hypertension with an RVSP of 44 mmHg. The aortic root at that time was normal size. Most recent catheterization performed August 2017 reveals diffuse disease in the LAD with 30-40% narrowing. Circumflex artery has a lesion at the takeoff just proximal to the previously stented area and 90%, there is 80% in-stent restenosis in the circumflex artery and distally 99% stenosis, RCA has diffuse 40% disease. He underwent PCI of the circumflex with 2 stents at that time. At the time of my exam: CONSTITUTIONAL: Denies fever. Denies chills. EYES: Denies blurred vision. Denies vision changes. Denies eye pain. EARS, NOSE, MOUTH & THROAT: Denies headache. Denies sore throat. Denies ear pain. CARDIOVASCULAR: Denies chest pain. Denies shortness of breath. Denies orthopnea. Denies PND. Denies palpitations. RESPIRATORY: Denies cough. GASTROINTESTINAL: Denies abdominal pain. Denies diarrhea. Denies constipation. Denies nausea. Denies vomiting. MUSCULOSKELETAL: Complains of mid scapular discomfort. INTEGUMENTARY: Denies pruitis. Denies rash. NEUROLOGIC: Denies numbness. Denies tingling. Denies weakness. PSYCHIATRIC: Denies anxiety. Denies depression. ENDOCRINE: Denies fatigue. Denies weight change. Denies polydipsia. Denies polyurina. GENITOURINARY: Denies burning, hematuria or urgency with micturation. HEMATOLOGIC: Denies history of anemia. Denies bleeding. Blood pressure 150/72 heart rate 82 afebrile maintaining oxygen saturation on room air GENERAL: This is a 63-year-old male in no apparent distress at the time of my examination. Obese. HEENT: Head is atraumatic, normocephalic. Pupils are equal, round. Sclerae anicteric. Conjunctivae are clear. Mucous membranes of the mouth are moist. Neck is supple. There is no jugular venous distention. No carotid bruit is heard. LUNGS: Course. No wheezes or rales. No chest wall tenderness is noted on palpation or with deep breathing. HEART: Regular rate and rhythm without murmurs, rubs or gallops. S1 and S2 heard. ABDOMEN: Soft, nontender. Bowel sounds are heard. No organomegaly noted. EXTREMITIES: Trace bilateral lower extremity edema bilaterally. No calf tenderness noted. VASCULAR: Radial and dorsalis pedis pulses palpated, no evidence of clubbing. NEUROLOGIC: Patient is awake, alert and oriented x3. ASSESSMENT Stable angina relieved with SL nitroglycerin. No EKG evidence of ischemia. History of coronary artery disease status post recent PCI of the circumflex artery maintained on Plavix. Hypertension, uncontrolled Dyslipidemia Diabetes mellitus COPD History of PE/DVT in the past on long-term anticoagulation PLAN Continue to obtain serial cardiac enzymes to rule out an acute event. Obtain 2-D echocardiogram and Doppler study to assess cardiac structure and function. Obtain stat CT of the abdominal and thoracic aorta to rule out dissection. Check NT proBNP. Increase Imdur to 30 mg twice a day and losartan to 25 mg twice a day. If blood pressure continues to remain uncontrolled may consider changing Lopressor to carvedilol 25 mg twice a day. Further recommendations to follow based on clinical course. Thank you kindly for this consultation. Nurse Practitioner note has been reviewed, I agree with a documented findings and plan of care. Patient was seen and examined. Past Medical History Past Medical History: Coronary Artery Disease (CAD), Heart Failure, COPD, CVA/ TIA, Diabetes Mellitus, Deep Vein Thrombosis (DVT), GERD/Reflux, Hyperlipidemia , Hypertension, Myocardial Infarction (AR), Osteoarthritis (OA), Pneumonia, Pulmonary Embolus (PE), Skin Disorder, Vascular Disorder Additional Past Medical History / Comment(s): IDDM type II, neuropathy bilateral feet/legs/arms and hands, recently treated at [facility] for L great toe ulcer which healed but pt states just starting to reopen, January 2018 pt pt was in coma/vented at [facility] d/t R 2nd toe infection, PVD, arthritis in low back and bilateral hips, chronic low back pain, TIA x2, 2013 fall with brain bleed, gastric ulcer, psoriasis. Last Myocardial Infarction Date:: 08/2017 History of Any Multi-Drug Resistant Organisms: MRSA Date of last positivie culture/infection: Pt states MRSA in lungs in 2002 and possibly MRSA R 2nd toe fall 2017-[facility] MDRO Source:: buttock-03/23/17 Past Surgical History: Heart Catheterization With Stent, Orthopedic Surgery, Tonsillectomy Additional Past Surgical History / Comment(s): Multiple cardiac caths and PCI with stents, L leg has 2 stents, L/R great toe debridements, 2nd R toe amp, bunionectomy-cannot recall laterality, bilateral rotator cuff surgery, colonoscopy. Past Anesthesia/Blood Transfusion Reactions: Motion Sickness Additional Past Anesthesia/Blood Transfusion Reaction / Comment(s): pt stated has had a blood transfusion in past-no known reaction Date of Last Stent Placement:: 2016 Smoking Status: Former smoker - Past Family History Mother Family Medical History: Cancer, Coronary Artery Disease (CAD), Myocardial Infarction (AR) Additional Family Medical History / Comment(s): Mother had brain cancer. She at the age of 53 yrs from a AR Father Family Medical History: Coronary Artery Disease (CAD), Myocardial Infarction (AR ) Additional Family Medical History / Comment(s): Father of a AR at the age of 63 yrs. Medications and Allergies Home Medications Medication Instructions Recorded Confirmed Type Ferrous Sulfate [Iron (65 MG 325 mg PO DAILY 04/05/17 06/02/18 History Elemental)] Cholecalciferol [Vitamin D3] 1,000 unit PO DAILY 09/19/17 06/02/18 History Furosemide [Lasix] 40 mg PO BID 09/19/17 06/02/18 History Insulin Glargine,Hum.rec.anlog 35 unit SQ BID 09/19/17 06/02/18 History [[place] Solostar] Isosorbide Mononitrate ER [Imdur] 30 mg PO DAILY 09/19/17 06/02/18 History Losartan [Cozaar] 25 mg PO DAILY 09/19/17 06/02/18 History Pregabalin [Lyrica] 150 mg PO BID 09/19/17 06/02/18 History Albuterol Sulfate [Proair Hfa] 1 - 2 puff INHALATION RT-Q6H PRN 09/26/17 History DULoxetine HCL [Cymbalta] 60 mg PO DAILY 09/26/17 06/02/18 History Lactobacillus Acidophilus 3 tab PO DAILY 09/26/17 06/02/18 History [Acidophilus] Omeprazole 40 mg PO DAILY 09/26/17 06/02/18 History Clopidogrel [Plavix] 75 mg PO DAILY #30 tab 09/28/17 06/02/18 Rx Rivaroxaban [Xarelto] 15 mg PO W/SUPPER #30 tab 09/28/17 06/02/18 Rx Allopurinol [Zyloprim] 100 mg PO DAILY #30 tablet 11/15/17 06/02/18 Rx Metoprolol Tartrate [Lopressor] 100 mg PO BID 02/14/18 06/02/18 History Tamsulosin HCl [Flomax] 0.4 mg PO DAILY 02/14/18 06/02/18 History oxyCODONE HCL [OxyCONTIN] 40 mg PO Q12H 02/14/18 06/02/18 History Divalproex ER [Depakote ER] 250 mg PO HS #30 tab.er.24h 02/27/18 06/02/18 Rx ALPRAZolam [Xanax] 0.25 mg PO BID PRN 05/16/18 06/02/18 History Insulin Aspart [NovoLOG 15 unit SQ AC-TID 06/02/18 06/02/18 History (formulary)] Nitroglycerin Sl Tabs [Nitrostat] 0.4 mg SUBLINGUAL Q5M PRN 06/02/18 06/02/18 History Pantoprazole Sodium [Protonix] 40 mg PO DAILY 06/02/18 06/02/18 History Allergies Allergy/AdvReac Type Severity Reaction Status Date / Time No Known Allergies Allergy Verified 06/02/18 08:52 Physical Exam Vitals: Vital Signs Temp Pulse Resp BP Pulse Ox 06/02/18 08:52 82 18 150/72 98 06/02/18 07:17 82 16 117/86 100 06/02/18 06:10 93 20 105/90 98 06/02/18 04:35 99.4 F 90 20 172/89 99 Intake and Output 06/01/18 06/02/18 06/02/18 22:59 06:59 14:59 Other: Weight 115.666 kg Results 06/02/18 04:40 06/02/18 04:40 Cardiac Enzymes 06/02/18 06/02/18 Range/Units 04:40 04:40 AST 17 (17-59) U/L CK-MB (CK-2) 2.0 (0.0-2.4) ng/mL Troponin I 0.018 (0.000-0.034) ng/mL Coagulation 06/02/18 Range/Units 04:40 PT 9.7 (9.0-12.0) sec APTT 25.0 (22.0-30.0) sec CBC 06/02/18 Range/Units 04:40 WBC 9.9 (3.8-10.6) k/uL RBC 4.11 L (4.30-5.90) m/uL Hgb 11.5 L (13.0-17.5) gm/dL Hct 35.4 L (39.0-53.0) % Plt Count 307 (150-450) k/uL Comprehensive Metabolic Panel 06/02/18 Range/Units 04:40 Sodium 140 (137-145) mmol/L Potassium 5.3 H (3.5-5.1) mmol/L Chloride 105 (98-107) mmol/L Carbon Dioxide 31 H (22-30) mmol/L BUN 23 H (9-20) mg/dL Creatinine 0.97 (0.66-1.25) mg/dL Glucose 219 H (74-99) mg/dL Calcium 9.3 (8.4-10.2) mg/dL AST 17 (17-59) U/L ALT 26 (21-72) U/L Alkaline Phosphatase 76 (38-126) U/L Total Protein 6.3 (6.3-8.2) g/dL Albumin 3.6 (3.5-5.0) g/dL Current Medications Generic Name Dose Route Start Last Admin Trade Name Freq PRN Reason Stop Dose Admin Allopurinol 100 mg 06/02/18 10:00 Zyloprim PO DAILY [facility] Alprazolam 0.25 mg 06/02/18 09:45 Xanax PO BID PRN Anxiety Cholecalciferol 1,000 unit 06/02/18 10:00 Vitamin D3 PO DAILY [facility] Clopidogrel Bisulfate 75 mg 06/02/18 10:00 Plavix PO DAILY [facility] Divalproex Sodium 250 mg 06/02/18 21:00 Depakote Er PO HS [facility] Duloxetine HCl 60 mg 06/02/18 10:00 Cymbalta PO DAILY [facility] Ferrous Sulfate 325 mg 06/02/18 10:00 Feosol PO DAILY [facility] Furosemide 40 mg 06/02/18 10:00 Lasix PO BID@0900,1600 [facility] Insulin Aspart 15 unit 06/02/18 12:30 Novolog SQ AC-TID [facility] Insulin Detemir 35 unit 06/02/18 21:00 Levemir SQ BID [facility] Isosorbide Mononitrate 30 mg 06/02/18 10:00 Imdur PO DAILY [facility] Lactobacillus Acidoph/Bulgaricus 1 each 06/02/18 10:00 Lactinex PO DAILY [facility] Losartan Potassium 25 mg 06/02/18 10:00 Cozaar PO DAILY [facility] Metoprolol Tartrate 100 mg 06/02/18 10:00 Lopressor PO BID [facility] Nitroglycerin 0.4 mg 06/02/18 09:45 Nitrostat SUBLINGUAL Q5M PRN Chest Pain Oxycodone HCl 40 mg 06/02/18 11:00 Oxycontin 20mg E.R. PO Q12HR [facility] Pantoprazole Sodium 40 mg 06/02/18 10:00 Protonix PO DAILY [facility] Pregabalin 150 mg 06/02/18 21:00 Lyrica PO BID [facility] Rivaroxaban 15 mg 06/02/18 17:30 Xarelto PO W/SUPPER [facility] Sodium Chloride 10 ml 06/02/18 09:00 Saline Flush IV BID [facility] Tamsulosin HCl 0.4 mg 06/02/18 10:00 Flomax PO DAILY [facility] Intake and Output 06/01/18 06/02/18 06/02/18 22:59 06:59 14:59 Other: Weight 115.666 kg 06/02/18 04:40 06/02/18 04:40
--- NOTE | 2018-06-02 13:59 | CT ---
EXAMINATION TYPE: CT angio thor/abd pel aorta DATE OF EXAM: 06/02/2018 COMPARISON: CT abdomen pelvis February 15, 2018. HISTORY: Chest pain into back and hypertension. CT DLP: 3219 mGycm. Automated Exposure Control for Dose Reduction was Utilized. CONTRAST: CTA scan of the thorax, abdomen and pelvis is performed without oral and without and with IV Contrast , patient injected with 100ml mL of Isovue 370. Three-D reconstructed images are created on [employer] workstation and reviewed. FINDINGS: VASCULAR: There is mild peripheral plaque in the aortic arch. There is normal three-vessel origin fr om aortic arch. No significant plaque or stenosis is present. No aneurysm or dissection in the thorac ic aorta is present. Mild calcified plaque descending thoracic aorta is noted. There is patent celiac artery, there is patent SMA with moderate calcified plaque. There are patent bilateral single renal arteries with mild calcified plaque. There is patent PARAG. There is moderate to severe mixed plaque in the infrarenal abdominal aorta with overall small caliber of aorta measuring roughly 1.0 cm. No sign ificant focal stenosis is present. There is severe plaque in common iliac arteries bilaterally which are fairly small caliber without greater than 50% stenosis. Severe plaque extends into internal iliac arteries bilaterally. Mild to moderate plaque extends into external iliac arteries bilaterally. Ther e is mild to moderate mixed plaque in groin region, and femoral arteries extending into superficial a nd deep branches. No significant stenosis is present. No aneurysm is seen. No dissection is noted. LUNGS: Reticular interstitial changes anteriorly left upper to mid lung could reflect fibrosis and/or mild interstitial edema, correlate clinically. Patchy linear atelectasis and/or scarring in both rohan g bases is present. Interval resolution of largest left lower lobe nodule, some stable smaller subcen timeter nodules for reference laterally left lung base axial image 43 and posterior left lower lobe a xial image 40 measuring 5 mm remain present felt stable. There is no pleural effusion or pneumothorax seen bilaterally. No suspicious new masses are present. The tracheobronchial tree is patent. MEDIASTINUM: There are enlarged bilateral hilar lymph nodes. No greater than 1 cm mediastinal adenopa thy is present No pericardial effusion is seen. Heart size is mildly enlarged. Moderate to severe 3 vessel coronary artery calcification is noted. OTHER: No additional significant abnormality is seen. LIVER/GB: No significant abnormality is appreciated. PANCREAS: No significant abnormality is seen. SPLEEN: No significant abnormality is seen. ADRENALS: No significant abnormality is seen. KIDNEYS: No significant abnormality is seen. BOWEL: No significant abnormality is seen. GENITAL ORGANS: No gross abnormality seen. LYMPH NODES: No greater than 1cm abdominal or pelvic lymph nodes are appreciated. OSSEOUS STRUCTURES: No significant abnormality is seen. OTHER: Persistent sacral decubitus ulcer with abnormal soft tissue left posterior aspect of sacrum ax ial image 112 no significant change from prior. Correlate clinically for acute infection at this leve l. Reactive osseous sclerosis favors chronic inflammation or process. IMPRESSION: 1. No CT evidence for aortic aneurysm or dissection. Moderate to severe atherosclerotic change dista l abdominal aorta extending into pelvic branch vessels with overall small caliber, no hemodynamically significant focal stenosis is present.
[2018-06-02] MEDS: CHOLECALCIFEROL 1,000 UNIT TAB PO SCH (15:00)
[2018-06-02] MEDS: LACTOBACILLUS ACIDOPH & BULGAR 1 EACH PACKET PO SCH (15:00)
[2018-06-02 16:51] LABS: Glucose,Whole Blood 162 mg/dL (75-99)
[2018-06-02 16:55] LABS: Creatine Kinase MB 2.6 ng/mL (0.0-2.4); Troponin I 0.022 ng/mL (0.000-0.034)
[2018-06-02] MEDS: RIVAROXABAN 15 MG TAB PO SCH (17:04)
--- NOTE | 2018-06-02 19:11 | P.HPIM ---
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 his pain radiated to between his shoulder blades. he got concerned and anxious while he checked his blood pressure by himself and was 210/108. he had no dyspnea ,no vomiting but felt some nausea. pt has left big toe ulcer, on the planter side, base looks clean , with no surrounding cellulites . on admission his vitals were stable , cbc showing mild anemia at 11.5. his potassium is 5.3 , sodium 140, creatinine is 0.97 , liver enz not elevated . CT angio with iv contrast was already done by cardiology team showing no aortic aneurysm. pt was evaluated by cardiology team already and diagnosed him with stable angina, and opted for better blood pressure control. currently pt stated to me his chest pain is completely resolved. Review of Systems CONSTITUTIONAL: No fever, no malaise, no fatigue. HEENT: No recent visual problems or hearing problems. Denied any sore throat. CARDIOVASCULAR: No orthopnea, PND, no palpitations, no syncope. PULMONARY: No shortness of breath, no cough, no hemoptysis. GASTROINTESTINAL: No diarrhea, no nausea, no vomiting, no abdominal pain. Normoactive bowel sounds. NEUROLOGICAL: No headaches, no weakness, no numbness. HEMATOLOGICAL: Denies any bleeding or petechiae. GENITOURINARY: Denies any burning micturition, frequency, or urgency. MUSCULOSKELETAL/RHEUMATOLOGICAL: Denies any joint pain, swelling, or any muscle pain. ENDOCRINE: Denies any polyuria or polydipsia. Past Medical History Past Medical History: Coronary Artery Disease (CAD), Heart Failure, COPD, CVA/ TIA, Diabetes Mellitus, Deep Vein Thrombosis (DVT), GERD/Reflux, Hyperlipidemia , Hypertension, Myocardial Infarction (MS), Osteoarthritis (OA), Pneumonia, Pulmonary Embolus (PE), Skin Disorder, Vascular Disorder Additional Past Medical History / Comment(s): IDDM type II, neuropathy bilateral feet/legs/arms and hands, recently treated at [facility] for L great toe ulcer which healed but pt states just starting to reopen, January 2018 pt pt was in coma/vented at [facility] d/t R 2nd toe infection, PVD, arthritis in low back and bilateral hips, chronic low back pain, TIA x2, 2013 fall with brain bleed, gastric ulcer, psoriasis. Last Myocardial Infarction Date:: 08/2017 History of Any Multi-Drug Resistant Organisms: MRSA Date of last positivie culture/infection: Pt states MRSA in lungs in 2002 and possibly MRSA R 2nd toe fall 2017-[facility] MDRO Source:: buttock-03/23/17 Past Surgical History: Heart Catheterization With Stent, Orthopedic Surgery, Tonsillectomy Additional Past Surgical History / Comment(s): Multiple cardiac caths and PCI with stents, L leg has 2 stents, L/R great toe debridements, 2nd R toe amp, bunionectomy-cannot recall laterality, bilateral rotator cuff surgery, colonoscopy. Past Anesthesia/Blood Transfusion Reactions: Motion Sickness Additional Past Anesthesia/Blood Transfusion Reaction / Comment(s): pt stated has had a blood transfusion in past-no known reaction Date of Last Stent Placement:: 2016 Smoking Status: Former smoker - Past Family History Mother Family Medical History: Cancer, Coronary Artery Disease (CAD), Myocardial Infarction (MS) Additional Family Medical History / Comment(s): Mother had brain cancer. She at the age of 53 yrs from a MS Father Family Medical History: Coronary Artery Disease (CAD), Myocardial Infarction (MS ) Additional Family Medical History / Comment(s): Father of a MS at the age of 63 yrs. Medications and Allergies Home Medications Medication Instructions Recorded Confirmed Type Ferrous Sulfate [Iron (65 MG 325 mg PO DAILY 04/05/17 06/02/18 History Elemental)] Cholecalciferol [Vitamin D3] 1,000 unit PO DAILY 09/19/17 06/02/18 History Furosemide [Lasix] 40 mg PO BID 09/19/17 06/02/18 History Insulin Glargine,Hum.rec.anlog 35 unit SQ BID 09/19/17 06/02/18 History [Toujeo Solostar] Isosorbide Mononitrate ER [Imdur] 30 mg PO DAILY 09/19/17 06/02/18 History Losartan [Cozaar] 25 mg PO DAILY 09/19/17 06/02/18 History Pregabalin [Lyrica] 150 mg PO BID 09/19/17 06/02/18 History Albuterol Sulfate [Proair Hfa] 1 - 2 puff INHALATION RT-Q6H PRN 09/26/17 History DULoxetine HCL [Cymbalta] 60 mg PO DAILY 09/26/17 06/02/18 History Lactobacillus Acidophilus 3 tab PO DAILY 09/26/17 06/02/18 History [Acidophilus] Omeprazole 40 mg PO DAILY 09/26/17 06/02/18 History Clopidogrel [Plavix] 75 mg PO DAILY #30 tab 09/28/17 06/02/18 Rx Rivaroxaban [Xarelto] 15 mg PO W/SUPPER #30 tab 09/28/17 06/02/18 Rx Allopurinol [Zyloprim] 100 mg PO DAILY #30 tablet 11/15/17 06/02/18 Rx Metoprolol Tartrate [Lopressor] 100 mg PO BID 02/14/18 06/02/18 History Tamsulosin HCl [Flomax] 0.4 mg PO DAILY 02/14/18 06/02/18 History oxyCODONE HCL [OxyCONTIN] 40 mg PO Q12H 02/14/18 06/02/18 History Divalproex ER [Depakote ER] 250 mg PO HS #30 tab.er.24h 02/27/18 06/02/18 Rx ALPRAZolam [Xanax] 0.25 mg PO BID PRN 05/16/18 06/02/18 History Insulin Aspart [NovoLOG 15 unit SQ AC-TID 06/02/18 06/02/18 History (formulary)] Nitroglycerin Sl Tabs [Nitrostat] 0.4 mg SUBLINGUAL Q5M PRN 06/02/18 06/02/18 History Pantoprazole Sodium [Protonix] 40 mg PO DAILY 06/02/18 06/02/18 History Allergies Allergy/AdvReac Type Severity Reaction Status Date / Time No Known Allergies Allergy Verified 06/02/18 08:52 Physical Exam Vitals: Vital Signs Temp Pulse Resp BP BP Pulse Ox 06/02/18 14:00 20 155/69 06/02/18 13:00 18 166/75 06/02/18 12:00 20 148/68 06/02/18 11:00 18 174/77 06/02/18 10:00 20 115/65 06/02/18 08:52 82 18 150/72 98 06/02/18 07:17 82 16 117/86 100 06/02/18 06:10 93 20 105/90 98 06/02/18 04:35 99.4 F 90 20 172/89 99 Intake and Output 06/02/18 06/02/18 06/02/18 06:59 14:59 22:59 Intake Total 300 Output Total 475 Balance -175 Intake: Oral 300 Output: Urine 475 Other: Weight 115.666 kg GENERAL: The patient is alert and oriented x3, not in any acute distress. Well developed, well nourished. HEENT: Pupils are round and equally reacting to light. EOMI. No scleral icterus. No conjunctival pallor. Normocephalic, atraumatic. No pharyngeal erythema. No thyromegaly. CARDIOVASCULAR: S1 and S2 present. No murmurs, rubs, or gallops. PULMONARY: Chest is clear to auscultation, no wheezing or crackles. ABDOMEN: Soft, nontender, nondistended, normoactive bowel sounds. No palpable organomegaly. MUSCULOSKELETAL: No joint swelling or deformity. -EXTREMITIES: No cyanosis, clubbing, or pedal edema. left big toe ulcer with minimal purulent discharge NEUROLOGICAL: Gross neurological examination did not reveal any focal deficits. SKIN: No rashes. Results CBC & Chem 7: 06/02/18 04:40 06/02/18 04:40 Labs: Abnormal Lab Results - Last 24 Hours (Table) 06/02/18 06/02/18 06/02/18 Range/Units 04:40 04:40 04:40 RBC 4.11 L (4.30-5.90) m/uL Hgb 11.5 L (13.0-17.5) gm/dL Hct 35.4 L (39.0-53.0) % RDW 15.6 H (11.5-15.5) % Potassium 5.3 H (3.5-5.1) mmol/L Carbon Dioxide 31 H (22-30) mmol/L BUN 23 H (9-20) mg/dL Glucose 219 H (74-99) mg/dL POC Glucose (mg/dL) (75-99) mg/dL Total Creatine Kinase 36 L (55-170) U/L 06/02/18 Range/Units 11:25 RBC (4.30-5.90) m/uL Hgb (13.0-17.5) gm/dL Hct (39.0-53.0) % RDW (11.5-15.5) % Potassium (3.5-5.1) mmol/L Carbon Dioxide (22-30) mmol/L BUN (9-20) mg/dL Glucose (74-99) mg/dL POC Glucose (mg/dL) 153 H (75-99) mg/dL Total Creatine Kinase (55-170) U/L Thrombosis Risk Factor Assmnt - Choose All That Apply Any of the Below Risk Factors Present?: Yes Each Factor Represents 1 point: Abnormal pulmonary function (COPD), Heart failure (<1month), Obesity (BMI >25) Other Risk Factors: Yes Each Risk Factor Represents 2 Points: Age 61-74 years Other congenital or acquired thrombophilia - If yes, enter type in comment: No Thrombosis Risk Factor Assessment Total Risk Factor Score: 5 Thrombosis Risk Factor Assessment Level: High Risk Assessment and Plan Assessment: stable angina left big toe ulceration essential hypertension, uncontrolled hyperlipidemia h/o coronary art disease diabetes mellitus , type II Diabetic neuropathy h/o PE/DVT on xarelto history of COPD history of CVA/TIA s/p amputation of the right middle toe Plan: this is a pleasant 63 yo M who presents with chest pain , cardiology evaluation , increase his antihypertensive medication for better blood pressure control, check xray for his left foot big toe , infectious disease consult, check ESR. continue with insulin and check Hb A1c Labs and medication were reviewed.. Continue same treatment. Continue with symptomatic treatment. Resume home medication. Monitor lytes and vitals. DVT and GI prophylaxis. Further recommendations of the clinical course of the patient DVT prophylaxis: Subcutaneous heparin GI Prophylaxis: Pepcid PT/OT: Pending Prognosis is guarded
[2018-06-02 19:50] LABS: Glucose,Whole Blood 199 mg/dL (75-99)
--- NOTE | 2018-06-02 20:08 | XR ---
EXAMINATION TYPE: XR toes LT DATE OF EXAM: 06/02/2018 COMPARISON: NONE HISTORY: Toe ulcer TECHNIQUE: 3 views FINDINGS: There is a transverse fracture through the tuft of the distal phalanx of the big toe left f oot. There is soft tissue swelling. Fracture line measures 4 mm. IMPRESSION: Fracture of the distal phalanx. Soft tissue swelling. No specific sign for osteomyelitis. If there is no history for trauma then the possibility of osteomyelitis should be considered.
[2018-06-02] MEDS: PREGABALIN 75 MG CAP PO SCH (20:18)
[2018-06-02] MEDS: ISOSORBIDE MONONITRATE ER 30 MG TAB.ER.24H PO SCH (20:19)
[2018-06-02] MEDS: LOSARTAN 25 MG TAB PO SCH (20:20)
[2018-06-02 21:35] LABS: Glucose,Whole Blood 141 mg/dL (75-99)
[2018-06-02] MEDS: DIVALPROEX ER 250 MG TAB.ER.24H PO SCH (21:40)
[2018-06-02] MEDS: INSULIN DETEMIR (LEVEMIR) 100 UNIT/ML SYR SQ SCH (21:40)
[2018-06-02] MEDS: ALPRAZolam 0.25 MG TAB PO PRN (21:40)
[2018-06-03 06:30] LABS: Anion Gap 5 mmol/L; Blood Urea Nitrogen 23 mg/dL (9-20); Calcium 9.5 mg/dL (8.4-10.2); Carbon Dioxide 32 mmol/L (22-30); Chloride 103 mmol/L (98-107); Glucose 102 mg/dL (74-99); Potassium 4.8 mmol/L (3.5-5.1); Sodium 140 mmol/L (137-145)
[2018-06-03 06:41] LABS: Glucose,Whole Blood 100 mg/dL (75-99)
[2018-06-03] MEDS: INSULIN ASPART (NovoLOG) 100 UNIT/ML VIAL SQ SCH ×3 (06:52→16:02)
--- NOTE | 2018-06-03 08:41 | ECHOF ---
Referral Reason:cp MEASUREMENTS -------- HEIGHT: 180.3 cm WEIGHT: 115.7 kg BP: IVSd: 0.8 cm (0.6 - 1.1) LVIDd: 5.2 cm (3.9 - 5.3) LVPWd: 1.0 cm (0.6 - 1.1) IVSs: 1.6 cm LVIDs: 3.9 cm LVPWs: 1.5 cm RVIDd: 2.8 cm (< 3.3) Ao Diam: 3.2 cm (2.0 - 3.7) LA Diam: 3.7 cm (2.7 - 3.8) AV Cusp: 1.9 cm (1.5 - 2.6) EPSS: 1.1 cm MV E Harrison: 1.39 m/s MV DecT: 167 ms MV A Harrison: 0.72 m/s MV E/A Ratio: 1.92 MV EF SLOPE: 105.79 mm/s (70 - 150) MV EXCURSION: 23.23 mm (> 18.000) FINDINGS -------- Sinus rhythm. This was a technically difficult study with suboptimal views. The left ventricular size is normal. Left ventricular wall thickness is normal. Overall left vent ricular systolic function is mildly impaired with, an EF between 45 - 50 %. Basal inferior LV wall motion is hypokinetic. Mid inferior LV wall motion is hypokinetic. The right ventricle is normal in size and function. The left atrium is normal in size. The right atrium is normal in size. xx ml of Lumason was utilized for enhancement of images. The aortic valve is trileaflet, and appears structurally normal. No aortic stenosis or regurgitation. Mild mitral regurgitation is present. Trace tricuspid regurgitation present. The right ventricular systolic pressure, as measured by Dopp ler, is {RVSP}. Pulmonic valve appears structurally normal. The aortic root, ascending aorta and aortic arch are normal. The pericardium is normal. CONCLUSIONS -------- 1. Sinus rhythm. 2. This was a technically difficult study with suboptimal views. 3. The left ventricular size is normal. 4. Left ventricular wall thickness is normal. 5. Overall left ventricular systolic function is mildly impaired with, an EF between 45 - 50 %. 6. Basal inferior LV wall motion is hypokinetic. 7. Mid inferior LV wall motion is hypokinetic. 8. The right ventricle is normal in size and function. 9. The left atrium is normal in size. 10. The right atrium is normal in size. 11. xx ml of Lumason was utilized for enhancement of images. 12. The aortic valve is trileaflet, and appears structurally normal. No aortic stenosis or regurgitat ion. 13. Mild mitral regurgitation is present. 14. Trace tricuspid regurgitation present. 15. The right ventricular systolic pressure, as measured by Doppler, is {RVSP}. 16. Pulmonic valve appears structurally normal. 17. The aortic root, ascending aorta and aortic arch are normal. 18. The pericardium is normal. BEEHIVE KILN CHARCOAL BURNER: Sofia Rodriguez RDCS
[2018-06-03] MEDS: CHOLECALCIFEROL 1,000 UNIT TAB PO SCH (09:05)
[2018-06-03] MEDS: FERROUS SULFATE 325 MG TAB PO SCH (09:05)
[2018-06-03] MEDS: DULoxetine HCL 60 MG CAPSULE.DR PO SCH (09:05)
[2018-06-03] MEDS: CLOPIDOGREL 75 MG TAB PO SCH (09:05)
[2018-06-03] MEDS: ALLOPURINOL 100 MG TAB PO SCH (09:05)
[2018-06-03] MEDS: LACTOBACILLUS ACIDOPH & BULGAR 1 EACH PACKET PO SCH (09:06)
[2018-06-03] MEDS: LOSARTAN 25 MG TAB PO SCH ×2 (09:06→21:23)
[2018-06-03] MEDS: METOPROLOL TARTRATE 50 MG TAB PO SCH ×2 (09:06→21:23)
[2018-06-03] MEDS: ISOSORBIDE MONONITRATE ER 30 MG TAB.ER.24H PO SCH ×2 (09:06→21:23)
[2018-06-03] MEDS: FUROSEMIDE 40 MG TAB PO SCH ×2 (09:06→16:02)
[2018-06-03] MEDS: oxyCODONE ER 20 MG TAB.ER.12H PO SCH ×2 (09:07→21:24)
[2018-06-03] MEDS: PANTOPRAZOLE 40 MG TABLET PO SCH (09:07)
[2018-06-03] MEDS: PREGABALIN 75 MG CAP PO SCH ×2 (09:07→21:24)
[2018-06-03] MEDS: TAMSULOSIN 0.4 MG CAP.ER.24H PO SCH (09:08)
[2018-06-03] MEDS: INSULIN DETEMIR (LEVEMIR) 100 UNIT/ML SYR SQ SCH ×2 (09:08→21:22)
[2018-06-03 11:22] LABS: Glucose,Whole Blood 256 mg/dL (75-99)
[2018-06-03 11:36] LABS: Hemoglobin A1C 9.3 % (4.0-6.0)
--- NOTE | 2018-06-03 12:18 | P.PN ---
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 his pain radiated to between his shoulder blades. he got concerned and anxious while he checked his blood pressure by himself and was 210/108. he had no dyspnea ,no vomiting but felt some nausea. pt has left big toe ulcer, on the planter side, base looks clean , with no surrounding cellulites . on admission his vitals were stable , cbc showing mild anemia at 11.5. his potassium is 5.3 , sodium 140, creatinine is 0.97 , liver enz not elevated . CT angio with iv contrast was already done by cardiology team showing no aortic aneurysm. pt was evaluated by cardiology team already and diagnosed him with stable angina, and opted for better blood pressure control. currently pt stated to me his chest pain is completely resolved. 06/03/2018 Patient today denies chest pain or dyspnea. He is complaining from low back pain which is chronic but is more severe today, a shunt has recent wound in his lower back which is felt, patient says that he has this pain all his life. Usually he walks using a walker. X-ray from his left toe showing possible fracture versus osteomyelitis, however patient denies trauma. ESR is elevated at 47. BMP from today was unremarkable. Hemoglobin A1c is 9.3. We will increase his insulin humolog 15 to 17 units 3 times a day before meals. We'll ask for infectious disease evaluation. review of systems CONSTITUTIONAL: No fever, no malaise, no fatigue. HEENT: No recent visual problems or hearing problems. Denied any sore throat. CARDIOVASCULAR: No orthopnea, PND, no palpitations, no syncope. PULMONARY: No shortness of breath, no cough, no hemoptysis. GASTROINTESTINAL: No diarrhea, no nausea, no vomiting, no abdominal pain. Normoactive bowel sounds. NEUROLOGICAL: No headaches, no weakness, no numbness. HEMATOLOGICAL: Denies any bleeding or petechiae. GENITOURINARY: Denies any burning micturition, frequency, or urgency. ENDOCRINE: Denies any polyuria or polydipsia. Medication: Allopurinol, Xanax, vitamin D, Plavix, Depakote, Cymbalta, ferrous sulfate, Lasix, nuclear, Levemir, Imdur, lactobacillus, Cozaar, Lopressor, Nitrostat, oxycodone, Protonix, Lyrica, Xarelto, sodium chloride, Flomax. Objective - Vital Signs Vital signs: Vital Signs Temp 98.0 F 06/03/18 08:00 Pulse 67 06/03/18 11:48 Resp 18 06/03/18 11:48 BP 111/63 06/03/18 11:47 Pulse Ox 98 06/03/18 11:47 Intake & Output 06/02/18 06/03/18 06/03/18 18:59 06:59 18:59 Intake Total 780 120 300 Output Total 475 Balance 305 120 300 Weight 121.9 kg Intake: Oral 780 120 300 Output: Urine 475 Other: Voiding Method Toilet Toilet # Voids 1 - Exam GENERAL: The patient is alert and oriented x3, not in any acute distress. Well developed, well nourished. HEENT: Pupils are round and equally reacting to light. EOMI. No scleral icterus. No conjunctival pallor. Normocephalic, atraumatic. No pharyngeal erythema. No thyromegaly. CARDIOVASCULAR: S1 and S2 present. No murmurs, rubs, or gallops. PULMONARY: Chest is clear to auscultation, no wheezing or crackles. ABDOMEN: Soft, nontender, nondistended, normoactive bowel sounds. No palpable organomegaly. MUSCULOSKELETAL: No joint swelling or deformity. -EXTREMITIES: No cyanosis, clubbing, or pedal edema. left big toe ulcer with minimal purulent discharge NEUROLOGICAL: Gross neurological examination did not reveal any focal deficits. SKIN: No rashes. - Labs CBC & Chem 7: 06/02/18 04:40 06/03/18 06:03 Labs: Abnormal Lab Results - Last 24 Hours (Table) 06/02/18 06/02/18 06/02/18 Range/Units 15:37 16:43 19:35 ESR (0-15) mm/hr Carbon Dioxide (22-30) mmol/L BUN (9-20) mg/dL Glucose (74-99) mg/dL POC Glucose (mg/dL) 162 H 199 H (75-99) mg/dL Hemoglobin A1c (4.0-6.0) % CK-MB (CK-2) 2.6 H (0.0-2.4) ng/mL 06/02/18 06/03/18 06/03/18 Range/Units 21:33 06:03 06:03 ESR (0-15) mm/hr Carbon Dioxide 32 H (22-30) mmol/L BUN 23 H (9-20) mg/dL Glucose 102 H (74-99) mg/dL POC Glucose (mg/dL) 141 H (75-99) mg/dL Hemoglobin A1c 9.3 H (4.0-6.0) % CK-MB (CK-2) (0.0-2.4) ng/mL 06/03/18 06/03/18 06/03/18 Range/Units 06:03 06:34 11:21 ESR 47 H (0-15) mm/hr Carbon Dioxide (22-30) mmol/L BUN (9-20) mg/dL Glucose (74-99) mg/dL POC Glucose (mg/dL) 100 H 256 H (75-99) mg/dL Hemoglobin A1c (4.0-6.0) % CK-MB (CK-2) (0.0-2.4) ng/mL Assessment and Plan Assessment: stable angina Possible left toe osteomyelitis. And in further evaluation. left big toe ulceration essential hypertension, uncontrolled hyperlipidemia h/o coronary art disease diabetes mellitus , type II. Uncontrolled. Present on admission Diabetic neuropathy h/o PE/DVT on xarelto history of COPD history of CVA/TIA s/p amputation of the right middle toe Plan: this is a pleasant 63 yo M who presents with chest pain and possible left toe osteomyelitis, cardiology evaluation , increase his antihypertensive medication for better blood pressure control, check xray for his left foot big toe , infectious disease consult, elevated ESR. continue with insulin and Hb A1c 9.3% Labs and medication were reviewed.. Continue same treatment. Continue with symptomatic treatment. Resume home medication. Monitor lytes and vitals. DVT and GI prophylaxis. Further recommendations of the clinical course of the patient DVT prophylaxis: Subcutaneous heparin GI Prophylaxis: Pepcid PT/OT: Pending Prognosis is guarded
[2018-06-03] MEDS: SIMETHICONE 80 MG CHEWABLE PO SCH ×3 (13:10→21:25)
[2018-06-03 13:51] VITALS: BMI 37.5
[2018-06-03] MEDS: MORPHINE SULFATE 4 MG/ML SYRINGE IVP PRN ×2 (13:59→20:37)
[2018-06-03] MEDS: ALPRAZolam 0.25 MG TAB PO PRN (13:59)
--- NOTE | 2018-06-03 14:50 | P.PN ---
Subjective Progress Note Date: 06/03/18 This is a pleasant 63-year-old female past medical history significant for coronary artery disease status post multivessel PCI, hypertension, dyslipidemia, diabetes mellitus, COPD, chronic diastolic dysfunction hx of PE/DVT in the past on halfway anti-coagulation and obesity. He follows in the office with Dr. Martinez. Cardiology consultation was requested for chest pain. His pain is very atypical in nature, troponins not suggestive of acute coronary syndrome. He was seen and examined this morning, complaining of aches and pains everywhere including his mid back and lower back area. Atypical for acute coronary syndrome. Blood pressure today 110/60 with a heart rate in the 60s, 98% on room air. CT of the abdomen and chest was performed which did not reveal evidence of aortic aneurysm or dissection. Objective - Vital Signs Vital signs: Vital Signs Temp 98.0 F 06/03/18 08:00 Pulse 67 06/03/18 11:48 Resp 18 06/03/18 11:48 BP 111/63 06/03/18 11:47 Pulse Ox 98 06/03/18 11:47 Intake & Output 06/02/18 06/03/18 06/03/18 18:59 06:59 18:59 Intake Total 780 120 540 Output Total 475 Balance 305 120 540 Weight 121.9 kg Intake: Oral 780 120 540 Output: Urine 475 Other: Voiding Method Toilet Toilet # Voids 1 - Exam PHYSICAL EXAMINATION: GENERAL: 63-year-old gentleman in no acute distress at the time of our examination. HEENT: Head is atraumatic, normocephalic. Pupils equal, round. Sclera anicteric. Conjunctiva are clear. Mucous membranes of the mouth are moist. Neck is supple. There is no elevated jugular venous pressure. No carotid bruit is heard. HEART EXAMINATION: Heart S1, S2 normal. No murmur or gallop heard. CHEST EXAMINATION: Lungs are clear to auscultation and precussion. No chest wall tenderness is noted on palpation or with deep breathing. ABDOMEN: Soft, nontender. Bowel sounds are heard. No organomegaly noted. EXTREMITIES: 2+ peripheral pulses with no evidence of peripheral edema and no calf tenderness noted. NEUROLOGIC patient is awake, alert and oriented 3 . . - Labs CBC & Chem 7: 06/02/18 04:40 06/03/18 06:03 Labs: Abnormal Lab Results - Last 24 Hours (Table) 06/02/18 06/02/18 06/02/18 Range/Units 15:37 16:43 19:35 ESR (0-15) mm/hr Carbon Dioxide (22-30) mmol/L BUN (9-20) mg/dL Glucose (74-99) mg/dL POC Glucose (mg/dL) 162 H 199 H (75-99) mg/dL Hemoglobin A1c (4.0-6.0) % CK-MB (CK-2) 2.6 H (0.0-2.4) ng/mL 06/02/18 06/03/18 06/03/18 Range/Units 21:33 06:03 06:03 ESR (0-15) mm/hr Carbon Dioxide 32 H (22-30) mmol/L BUN 23 H (9-20) mg/dL Glucose 102 H (74-99) mg/dL POC Glucose (mg/dL) 141 H (75-99) mg/dL Hemoglobin A1c 9.3 H (4.0-6.0) % CK-MB (CK-2) (0.0-2.4) ng/mL 06/03/18 06/03/18 06/03/18 Range/Units 06:03 06:34 11:21 ESR 47 H (0-15) mm/hr Carbon Dioxide (22-30) mmol/L BUN (9-20) mg/dL Glucose (74-99) mg/dL POC Glucose (mg/dL) 100 H 256 H (75-99) mg/dL Hemoglobin A1c (4.0-6.0) % CK-MB (CK-2) (0.0-2.4) ng/mL Assessment and Plan Plan: Assessment and plan #1 chest pain, atypical for acute coronary syndrome . #2 History of coronary artery disease status post recent PCI of the circumflex artery maintained on Plavix. #3 Hypertension, uncontrolled #4 Dyslipidemia #5 Diabetes mellitus #6 COPD #7 History of PE/DVT in the past on long-term anticoagulation Plan From cardiology's perspective, patient may be able to be discharged home once cleared by primary. Blood pressure today under much better control. We will follow along with you now on an as-needed basis only, please don't hesitate to call with any questions. DNP note has been reviewed, I agree with a documented findings and plan of care. Patient was seen and examined.
[2018-06-03 16:03] LABS: Glucose,Whole Blood 82 mg/dL (75-99)
[2018-06-03] MEDS: RIVAROXABAN 15 MG TAB PO SCH (17:18)
[2018-06-03 20:26] LABS: Glucose,Whole Blood 155 mg/dL (75-99)
[2018-06-03] MEDS: DIVALPROEX ER 250 MG TAB.ER.24H PO SCH (21:22)
[2018-06-04] MEDS: MORPHINE SULFATE 4 MG/ML SYRINGE IVP PRN (01:05)
--- NOTE | 2018-06-04 02:46 | CONS ---
CONSULTATION DATE OF SERVICE: 06/03/2018. REASON FOR CONSULTATION: Left big toe wound. HISTORY OF PRESENT ILLNESS: The patient is a 63-year-old male presenting to the ER at [facility] with chief complaints of chest pain. The patient said he was trying to go to sleep and there was pressure and pain to the left side of the chest area. The patient denies any associated shortness of breath or any cough or sputum production. With these symptoms, the patient was brought into the ER at [facility] and has been evaluated by Cardiology Service. The patient also noticed to have wound on his left big toe which is chronic for him and follows at the [facility] for treatment of the same. However, he was not clear what he was getting treatment twice recently. The patient denies having any pain to the left big toe wound area. There is minimal swelling with no redness or any foul-smelling drainage. The patient also has a history of chronic nonhealing wound to the sacral area that is currently healed up. The patient complains of pain mostly in the lower back area. Denies any chest pain to me today. No abdominal pain or any diarrhea. The patient did have x-rays of the left toe which is currently showing fracture of distal phalanx, but no signs of osteomyelitis. Infectious Disease was consulted for further recommendation regarding his left big toe wound. REVIEW OF SYSTEMS: Positive points have been mentioned in HPI. Review of systems has been negative. PAST MEDICAL HISTORY: Coronary artery disease, CVA, TIA, diabetes mellitus, DVT, gastroesophageal reflux disease, hypertension, hyperlipidemia, DC, osteoarthritis and pneumonia, PE, previous history of C difficile colitis and MRSA infection. PAST SURGICAL HISTORY: PTCA with stent, tonsillectomy, bilateral shoulder rotator cuff surgery, multiple heart catheterizations . SOCIAL HISTORY: Remote history of smoking. Heavy drinking. No drug use. FAMILY HISTORY: Mother with history of coronary artery disease. Father also history of coronary artery disease. ALLERGIES: No known drug allergies. MEDICATIONS: Medications include the patient is currently on Zyloprim, Xanax, vitamin D3, Plavix, Depakote, Cymbalta, ferrous sulfate, Lasix, NovoLog, Levemir, Imdur, Lactinex, Cozaar, Lopressor, morphine sulfate, Nitrostat, OxyContin, Protonix, Lyrica, Xarelto and Flomax. PHYSICAL EXAMINATION: Blood pressure is 119/60 with a pulse of 68, temperature of 98. He is 95% on room air. General description is a middle-aged male lying in bed in no distress. No tachypnea or accessory muscles of respiration use. HEENT: Shows slight pallor. No scleral icterus. Oral mucosal membranes are dry. No pharyngeal erythema or thrush. Neck: Trachea central. No thyromegaly. Lungs unlabored breathing. Clear to auscultation anteriorly. No wheeze or crackles. Heart S1, S2. Regular rate and rhythm. Abdomen soft, no tenderness. No guarding or rigidity. Extremities: No edema of the feet. Examination of the left big toe did have wound currently with no slough tissue. No surrounding redness or any foul-smelling drainage. The patient's sacral wound has healed up. Neurological: Patient is awake, alert, oriented times three. Mood and affect normal. LABS: Hemoglobin 11.5, white count 9.9, BUN of 23, creatinine of 0.90. X-rays of the toe report as mentioned above. DIAGNOSTIC IMPRESSION AND PLAN: Patient with nonhealing wound on the left big toe plantar aspect mostly a pressure ulcer with wound base currently looks clean with no evidence of any cellulitis. Clinically doubt underlying osteomyelitis and the patient is currently not running any fever. X-ray did not show any features suspicious for osteomyelitis. PLAN: 1. We will recommend local wound care with Aquacel Silver dressing to be changed every 48 hours. The patient has been advised offloading shoes. 2. We will hold on any systemic antibiotic therapy at this point. 3. We will follow up on clinical condition and further adjust medication if needed. Thank you for this consultation. We will follow the patient along with you. MMODL / IJN: [id number] /
[2018-06-04 03:07] LABS: Glucose,Whole Blood 212 mg/dL (75-99)
[2018-06-04 05:46] LABS: Glucose,Whole Blood 233 mg/dL (75-99)
[2018-06-04] MEDS: INSULIN ASPART (NovoLOG) 100 UNIT/ML VIAL SQ SCH ×3 (07:09→17:40)
[2018-06-04] MEDS: ALLOPURINOL 100 MG TAB PO SCH (09:14)
[2018-06-04] MEDS: LACTOBACILLUS ACIDOPH & BULGAR 1 EACH PACKET PO SCH (09:15)
[2018-06-04] MEDS: DULoxetine HCL 60 MG CAPSULE.DR PO SCH (09:15)
[2018-06-04] MEDS: FERROUS SULFATE 325 MG TAB PO SCH (09:15)
[2018-06-04] MEDS: INSULIN DETEMIR (LEVEMIR) 100 UNIT/ML SYR SQ SCH ×2 (09:15→21:15)
[2018-06-04] MEDS: FUROSEMIDE 40 MG TAB PO SCH ×2 (09:15→17:40)
[2018-06-04] MEDS: ISOSORBIDE MONONITRATE ER 30 MG TAB.ER.24H PO SCH ×2 (09:15→21:15)
[2018-06-04] MEDS: CHOLECALCIFEROL 1,000 UNIT TAB PO SCH (09:15)
[2018-06-04] MEDS: CLOPIDOGREL 75 MG TAB PO SCH (09:15)
[2018-06-04] MEDS: LOSARTAN 25 MG TAB PO SCH ×2 (09:16→21:15)
[2018-06-04] MEDS: METOPROLOL TARTRATE 50 MG TAB PO SCH ×2 (09:16→21:15)
[2018-06-04] MEDS: LIDOCAINE 5% PATCH TOPICAL SCH (09:16)
[2018-06-04] MEDS: oxyCODONE ER 20 MG TAB.ER.12H PO SCH ×2 (09:16→21:15)
[2018-06-04] MEDS: TAMSULOSIN 0.4 MG CAP.ER.24H PO SCH (09:17)
[2018-06-04] MEDS: PANTOPRAZOLE 40 MG TABLET PO SCH (09:17)
[2018-06-04] MEDS: PREGABALIN 75 MG CAP PO SCH ×2 (09:17→21:16)
[2018-06-04] MEDS: SIMETHICONE 80 MG CHEWABLE PO SCH ×4 (09:17→21:16)
[2018-06-04 12:28] LABS: Glucose,Whole Blood 99 mg/dL (75-99)
[2018-06-04 17:28] LABS: Glucose,Whole Blood 231 mg/dL (75-99)
[2018-06-04] MEDS: RIVAROXABAN 15 MG TAB PO SCH (20:01)
[2018-06-04 20:06] LABS: Glucose,Whole Blood 169 mg/dL (75-99)
[2018-06-04] MEDS: DIVALPROEX ER 250 MG TAB.ER.24H PO SCH (22:01)
--- NOTE | 2018-06-05 00:26 | PN ---
PROGRESS NOTE DATE OF SERVICE: 06/04/2018. REASON FOR FOLLOWUP: Left big toe diabetic foot wound. INTERVAL HISTORY: The patient is currently afebrile. He is breathing comfortably. The patient pain in the low back area though no radiation of the leg. No chest pain, shortness or breath or cough. Denies pain to the left big toe or any drainage. PHYSICAL EXAMINATION: Blood pressure 132/59 with a pulse of 73, temperature 98.6. He is 95% on room air. General description is a middle-aged male lying in bed in no distress. Respiratory system: Unlabored breathing. Clear to auscultation anteriorly. Heart S1, S2. Regular rate and rhythm. Abdomen soft. No tenderness. Left big toe wound looks clean with no slough tissue. Minimal swelling in the left big toe. LABS: CRP was elevated at 8.6, sed rate 47. DIAGNOSTIC IMPRESSION AND PLAN: 1. The x-rays of the toe did show transverse fracture through the tuft of the distal phalanx. Though the wound is superficial and does not extend down to the bone area, bone scan will be requested. Local wound culture has been obtained. No need for any antibiotic therapy. 2. Patient complaining of low back pain, will benefit from an MRI of the lumbosacral spine. This will be discussed further with medical team. 3. Continue supportive care. MMODL / IJN: [id number] /
--- NOTE | 2018-06-05 00:29 | P.PN ---
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 his pain radiated to between his shoulder blades. he got concerned and anxious while he checked his blood pressure by himself and was 210/108. he had no dyspnea ,no vomiting but felt some nausea. pt has left big toe ulcer, on the planter side, base looks clean , with no surrounding cellulites . on admission his vitals were stable , cbc showing mild anemia at 11.5. his potassium is 5.3 , sodium 140, creatinine is 0.97 , liver enz not elevated . CT angio with iv contrast was already done by cardiology team showing no aortic aneurysm. pt was evaluated by cardiology team already and diagnosed him with stable angina, and opted for better blood pressure control. currently pt stated to me his chest pain is completely resolved. 06/03/2018 Patient today denies chest pain or dyspnea. He is complaining from low back pain which is chronic but is more severe today, a shunt has recent wound in his lower back which is felt, patient says that he has this pain all his life. Usually he walks using a walker. X-ray from his left toe showing possible fracture versus osteomyelitis, however patient denies trauma. ESR is elevated at 47. BMP from today was unremarkable. Hemoglobin A1c is 9.3. We will increase his insulin humolog 15 to 17 units 3 times a day before meals. We'll ask for infectious disease evaluation. 06/04/2018 pt was complaining from chest pain today on the sides from coughing and yesterday from back pain , and he was asking for more opioids medication , pt is counseled about risk of these medication . pt is provided with lidocaine patch, ID evaluated pt and cleared him for discharge . xray of left TOE: fracture of his toe vs osteomyelitis but ID evaluated pt , they dont think pt has Osteomyltis and cleared him for discharge discharge planing in 24-48 hours review of systems CONSTITUTIONAL: No fever, no malaise, no fatigue. HEENT: No recent visual problems or hearing problems. Denied any sore throat. CARDIOVASCULAR: No orthopnea, PND, no palpitations, no syncope. PULMONARY: No shortness of breath, no cough, no hemoptysis. GASTROINTESTINAL: No diarrhea, no nausea, no vomiting, no abdominal pain. Normoactive bowel sounds. NEUROLOGICAL: No headaches, no weakness, no numbness. HEMATOLOGICAL: Denies any bleeding or petechiae. GENITOURINARY: Denies any burning micturition, frequency, or urgency. ENDOCRINE: Denies any polyuria or polydipsia. Medication: Allopurinol, Xanax, vitamin D, Plavix, Depakote, Cymbalta, ferrous sulfate, Lasix, nuclear, Levemir, Imdur, lactobacillus, Cozaar, Lopressor, Nitrostat, oxycodone, Protonix, Lyrica, Xarelto, sodium chloride, Flomax. Objective - Vital Signs Vital signs: Vital Signs Temp 97.5 F L 06/04/18 04:00 Pulse 74 06/04/18 04:00 Resp 18 06/04/18 04:00 BP 145/76 06/04/18 04:00 Pulse Ox 97 06/04/18 04:00 Intake & Output 06/03/18 06/04/18 06/04/18 18:59 06:59 18:59 Intake Total 880 480 Balance 880 480 Weight 121.9 kg 122.3 kg Intake: Oral 880 480 Other: Voiding Method Toilet # Voids 3 # Bowel Movements 1 - Exam GENERAL: The patient is alert and oriented x3, not in any acute distress. Well developed, well nourished. HEENT: Pupils are round and equally reacting to light. EOMI. No scleral icterus. No conjunctival pallor. Normocephalic, atraumatic. No pharyngeal erythema. No thyromegaly. CARDIOVASCULAR: S1 and S2 present. No murmurs, rubs, or gallops. PULMONARY: Chest is clear to auscultation, no wheezing or crackles. ABDOMEN: Soft, nontender, nondistended, normoactive bowel sounds. No palpable organomegaly. MUSCULOSKELETAL: No joint swelling or deformity. -EXTREMITIES: No cyanosis, clubbing, or pedal edema. left big toe ulcer with minimal purulent discharge NEUROLOGICAL: Gross neurological examination did not reveal any focal deficits. SKIN: No rashes. - Labs CBC & Chem 7: 06/02/18 04:40 06/03/18 06:03 Labs: Abnormal Lab Results - Last 24 Hours (Table) 06/03/18 06/03/18 06/03/18 Range/Units 06:03 11:21 20:23 POC Glucose (mg/dL) 256 H 155 H (75-99) mg/dL Hemoglobin A1c 9.3 H (4.0-6.0) % C-Reactive Protein (<10.0) mg/L 06/04/18 06/04/18 06/04/18 Range/Units 03:06 05:45 06:43 POC Glucose (mg/dL) 212 H 233 H (75-99) mg/dL Hemoglobin A1c (4.0-6.0) % C-Reactive Protein 18.6 H (<10.0) mg/L Assessment and Plan Assessment: stable angina vs atypical cardiac chest pain , stable from cardiology perspective xray of left TOE: fracture of his toe vs osteomyelitis but ID don't think pt has Osteomyltis left big toe ulceration essential hypertension, uncontrolled hyperlipidemia h/o coronary art disease diabetes mellitus , type II. Uncontrolled. Present on admission Diabetic neuropathy h/o PE/DVT on xarelto history of COPD history of CVA/TIA s/p amputation of the right middle toe Plan: this is a pleasant 63 yo M who presents with chest pain and possible left toe osteomyelitis, cardiology evaluation , increase his antihypertensive medication for better blood pressure control, check xray for his left foot big toe , infectious disease consult, elevated ESR. continue with insulin and Hb A1c 9.3% Labs and medication were reviewed.. Continue same treatment. Continue with symptomatic treatment. Resume home medication. Monitor lytes and vitals. DVT and GI prophylaxis. Further recommendations of the clinical course of the patient DVT prophylaxis: Subcutaneous heparin GI Prophylaxis: Pepcid PT/OT: Pending Prognosis is guarded will resume the care of the pt on 06/05/18
[2018-06-05] MEDS: ALPRAZolam 0.25 MG TAB PO PRN (04:32)
[2018-06-05 06:52] LABS: Glucose,Whole Blood 205 mg/dL (75-99)
[2018-06-05] MEDS: METOPROLOL TARTRATE 50 MG TAB PO SCH ×2 (07:42→22:31)
[2018-06-05] MEDS: ALLOPURINOL 100 MG TAB PO SCH (07:43)
[2018-06-05] MEDS: PANTOPRAZOLE 40 MG TABLET PO SCH (07:43)
[2018-06-05] MEDS: LACTOBACILLUS ACIDOPH & BULGAR 1 EACH PACKET PO SCH (07:43)
[2018-06-05] MEDS: oxyCODONE ER 20 MG TAB.ER.12H PO SCH ×2 (07:43→21:40)
[2018-06-05] MEDS: CLOPIDOGREL 75 MG TAB PO SCH (07:43)
[2018-06-05] MEDS: CHOLECALCIFEROL 1,000 UNIT TAB PO SCH (07:43)
[2018-06-05] MEDS: TAMSULOSIN 0.4 MG CAP.ER.24H PO SCH (07:43)
[2018-06-05] MEDS: LOSARTAN 25 MG TAB PO SCH ×2 (07:43→22:33)
[2018-06-05] MEDS: PREGABALIN 75 MG CAP PO SCH ×2 (07:44→21:54)
[2018-06-05] MEDS: FERROUS SULFATE 325 MG TAB PO SCH (07:44)
[2018-06-05] MEDS: DULoxetine HCL 60 MG CAPSULE.DR PO SCH (07:44)
[2018-06-05] MEDS: LIDOCAINE 5% PATCH TOPICAL SCH (07:44)
[2018-06-05] MEDS: ISOSORBIDE MONONITRATE ER 30 MG TAB.ER.24H PO SCH ×2 (07:44→22:32)
[2018-06-05] MEDS: FUROSEMIDE 40 MG TAB PO SCH ×2 (07:44→15:49)
[2018-06-05] MEDS: INSULIN ASPART (NovoLOG) 100 UNIT/ML VIAL SQ SCH ×3 (07:44→17:29)
[2018-06-05] MEDS: SIMETHICONE 80 MG CHEWABLE PO SCH ×4 (07:45→22:32)
[2018-06-05] MEDS: INSULIN DETEMIR (LEVEMIR) 100 UNIT/ML SYR SQ SCH ×2 (10:22→21:41)
[2018-06-05 11:22] LABS: Glucose,Whole Blood 103 mg/dL (75-99)
--- NOTE | 2018-06-05 14:15 | NM ---
EXAMINATION TYPE: NM bone 3 phase DATE OF EXAM: 06/05/2018 COMPARISON: NONE HISTORY: Left toe swelling and wound Triple phase bone scintigraphy was performed following the injection of 22.7 mCi Tc 99m MDP. Immedia te images and 5 hours post injection images acquired. FINDINGS: There is increased flow to the left foot. Blood pool images demonstrate increased soft tissue uptake overlying the second digit compatible with cellulitis. Delayed imaging demonstrates increased uptake involving the metatarsal and phalanx of the first digit . Abnormal uptake involving the right first and second and third digits likely post arthritic. IMPRESSION: Findings are compatible cellulitis with osteomyelitis of the left first digit.
[2018-06-05 17:16] LABS: Glucose,Whole Blood 303 mg/dL (75-99)
[2018-06-05] MEDS: RIVAROXABAN 15 MG TAB PO SCH (17:29)
[2018-06-05 20:36] LABS: Glucose,Whole Blood 146 mg/dL (75-99)
[2018-06-05] MEDS ORDERED: VANCOMYCIN IV PER PHARMACY 1 EACH MISC MISCELLANE PRN (21:35)
[2018-06-05] MEDS: DIVALPROEX ER 250 MG TAB.ER.24H PO SCH (21:39)
[2018-06-05] MEDS ORDERED: VANCOMYCIN 1,500 MG in SODIUM CHLORIDE 0.9% 250 ML IVPB SCH (23:00)
--- NOTE | 2018-06-06 06:46 | PN ---
PROGRESS NOTE DATE OF SERVICE: 06/05/2018 REASON FOR FOLLOWUP: big toe diabetic foot ulcer with questionable osteomyelitis. INTERVAL HISTORY: The patient is currently afebrile. The patient remains to have low back pain. The patient denies having any chest pain, shortness of breath or cough. No abdominal pain or any pain to the left big toe area and no significant drainage. REVIEW OF SYSTEMS: Positive as mentioned in the HPI with the rest of systems negative. Past medical and surgical history reviewed. Medications reviewed. PHYSICAL EXAMINATION: On examination, blood pressure is 98/60 with a pulse of 82, temperature 98.1. He is 100% on room air. General description is a middle aged male up in the bed in no distress. HEENT EXAMINATION: No pallor or scleral icterus. Oral mucous membrane is dry. LUNGS: Unlabored breathing. Clear to auscultation anteriorly. HEART" S1, S2. Regular rate and rhythm. ABDOMEN: Soft, no tenderness. Left big toe is currently dressed up. No obvious drainage on the dressing. LABS: The wound culture presumptive MRSA. Bone scan has been suspicious for left big toe osteomyelitis. DIAGNOSTIC IMPRESSION AND PLAN: Patient with left diabetic foot wound. X-rays were suspicious for a fracture. Local culture now showing presumptive MRSA and bone scan positive. Blood culture has been requested. We will add vancomycin pharmacy to dose. Local wound care with Aquacel Silver dressing. Overall prognosis guarded. Continue supportive care. MMODL / IJN: [id number] /
[2018-06-06 06:58] LABS: Glucose,Whole Blood 188 mg/dL (75-99)
--- NOTE | 2018-06-06 07:07 | PN ---
PROGRESS NOTE DATE OF SERVICE: 06/05/2018 PRESENTING COMPLAINT: Left foot wound. INTERVAL HISTORY: This patient initially admitted with chest pain, felt to be stable angina per Cardiology. Today patient is pending bone scan nuclear results to rule out osteomyelitis per ID. Otherwise patient is comfortable. REVIEW OF SYSTEMS: Done for constitutional, cardiovascular, GI, pulmonary; relevant findings as above. CURRENT MEDICATIONS: Current medications are reviewed include IV vancomycin. PHYSICAL EXAMINATION: On examination, temperature 97.6, pulse 72, respiratory 18, blood pressure 99/53, pulse ox 95% on room air. GENERAL APPEARANCE: Well built, BMI 37.6, sitting up, comfortable. EYES: Pupils equal. Conjunctiva normal. HENT: External appearance of nose and ears normal. Oral cavity normal. NECK: JVD unable to assess. Mass not palpable. RESPIRATORY: Effort normal. LUNGS: Decreased breath sounds. CARDIOVASCULAR: First and second sounds normal. No edema. ABDOMEN: Soft, nontender. Liver and spleen not palpable. PSYCHIATRY: Alert and oriented x3. Mood and affect normal. EXTREMITIES: Left foot wound. INVESTIGATIONS: Accu-Cheks are noted including 303, 146. ASSESSMENT: 1. Chest pain from stable angina. 2. Coronary artery disease with stent to the circumflex. 3. Chronic obstructive pulmonary disease in an ex-smoker. 4. Diabetes mellitus type 2, chronically on insulin uncontrolled with hyperglycemia. 5. Gastroesophageal reflux disease. 6. Hyperlipidemia. 7. Essential hypertension. 8. Primary osteoarthritis. 9. Peripheral arterial disease with stents. 10.History of amputation of right big toe. 11.Left big toe pending bone scan to rule out osteomyelitis. 12.Sacral wound healing. 13.Depression, not otherwise specified. PLAN: Continue current medication and treatment plan. Continue on IV vancomycin. Await bone scan results, which did come back later today with some suggestion of cellulitis and the wording is unclear if there is actually osteomyelitis. We will check with Dr. Bass. MMODL / IJN: [id number] /
[2018-06-06 08:25] LABS: Basophils % (A) 1 %; Eosinophils # (A) 0.3 k/uL (0-0.7); Eosinophils % (A) 4 %; HCT 31.5 % (39.0-53.0); HGB 10.1 gm/dL (13.0-17.5); Lymphocytes # (A) 1.8 k/uL (1.0-4.8); Lymphocytes % (A) 24 %; MCH 28.3 pg (25.0-35.0); MCHC 32.2 g/dL (31.0-37.0); MCV 87.9 fL (80.0-100.0); Mean Platelet Volume 7.2; Monocytes # (A) 0.7 k/uL (0-1.0); Monocytes % (A) 10 %; Neutrophils # (A) 4.2 k/uL (1.3-7.7); Neutrophils % (A) 59 %; Platelet Count 246 k/uL (150-450); RBC 3.58 m/uL (4.30-5.90); RDW 15.8 % (11.5-15.5); WBC 7.2 k/uL (3.8-10.6)
[2018-06-06] MEDS: CLOPIDOGREL 75 MG TAB PO SCH (08:26)
[2018-06-06] MEDS: CHOLECALCIFEROL 1,000 UNIT TAB PO SCH (08:26)
[2018-06-06] MEDS: INSULIN DETEMIR (LEVEMIR) 100 UNIT/ML SYR SQ SCH ×2 (08:26→21:33)
[2018-06-06] MEDS: LACTOBACILLUS ACIDOPH & BULGAR 1 EACH PACKET PO SCH (08:26)
[2018-06-06] MEDS: oxyCODONE ER 20 MG TAB.ER.12H PO SCH ×2 (08:26→21:51)
[2018-06-06 08:27] LABS: Anion Gap 6 mmol/L; Blood Urea Nitrogen 34 mg/dL (9-20); Calcium 9.2 mg/dL (8.4-10.2); Carbon Dioxide 30 mmol/L (22-30); Chloride 104 mmol/L (98-107); Glucose 190 mg/dL (74-99); Potassium 5.1 mmol/L (3.5-5.1); Sodium 140 mmol/L (137-145)
[2018-06-06] MEDS: FUROSEMIDE 40 MG TAB PO SCH ×2 (08:27→16:50)
[2018-06-06] MEDS: DULoxetine HCL 60 MG CAPSULE.DR PO SCH (08:27)
[2018-06-06] MEDS: PREGABALIN 75 MG CAP PO SCH ×2 (08:27→21:32)
[2018-06-06] MEDS: PANTOPRAZOLE 40 MG TABLET PO SCH (08:27)
[2018-06-06] MEDS: TAMSULOSIN 0.4 MG CAP.ER.24H PO SCH (08:27)
[2018-06-06] MEDS: FERROUS SULFATE 325 MG TAB PO SCH (08:27)
[2018-06-06] MEDS: ALLOPURINOL 100 MG TAB PO SCH (08:27)
[2018-06-06] MEDS: METOPROLOL TARTRATE 50 MG TAB PO SCH ×2 (08:27→21:32)
[2018-06-06] MEDS: ISOSORBIDE MONONITRATE ER 30 MG TAB.ER.24H PO SCH ×2 (08:27→21:32)
[2018-06-06] MEDS: LOSARTAN 25 MG TAB PO SCH ×2 (08:27→21:32)
[2018-06-06] MEDS: SIMETHICONE 80 MG CHEWABLE PO SCH ×4 (08:28→21:32)
[2018-06-06] MEDS: LIDOCAINE 5% PATCH TOPICAL SCH (08:28)
[2018-06-06] MEDS: INSULIN ASPART (NovoLOG) 100 UNIT/ML VIAL SQ SCH ×3 (08:29→18:47)
[2018-06-06 12:06] LABS: Glucose,Whole Blood 190 mg/dL (75-99)
[2018-06-06] MEDS: VANCOMYCIN 2,000 MG in SODIUM CHLORIDE 0.9% 500 ML 500 ML IVPB SCH (12:20)
[2018-06-06 17:02] LABS: Glucose,Whole Blood 228 mg/dL (75-99)
[2018-06-06] MEDS: RIVAROXABAN 15 MG TAB PO SCH (18:47)
[2018-06-06 20:21] LABS: Glucose,Whole Blood 216 mg/dL (75-99)
[2018-06-06] MEDS: DIVALPROEX ER 250 MG TAB.ER.24H PO SCH (21:33)
--- NOTE | 2018-06-06 23:25 | PN ---
PROGRESS NOTE DATE OF SERVICE: 06/06/2018. PRESENTING COMPLAINT: Left foot wound. INTERVAL HISTORY: The patient admitted with chest pain, followed by Cardiology, no further intervention. Also had a bone scan, triple phase bone scan done for the left foot. Discussed with Dr. Garcia from ID, who did review the films with Radiology. The patient does have suggestive findings suggestive of osteomyelitis. Also fractures present. The patient has chronic low back pain for which he follows with Dr. Cortez. REVIEW OF SYSTEMS: Done for constitutional, cardiovascular, GI, pulmonary and relevant findings as above. CURRENT MEDICATIONS: Reviewed and include IV vancomycin. PHYSICAL EXAMINATION: VITAL SIGNS: Temperature 98.5, pulse 72, respirations 16, blood pressure 104/64, pulse ox 96 percent on room air. GENERAL APPEARANCE: Sitting up comfortable. EYES: Pupils are equal. Conjunctivae normal. NECK: JVD not raised. Mass not palpable. RESPIRATORY: Effort normal. LUNGS: Decreased breath sounds. CARDIOVASCULAR: 1st and 2nd sounds. No edema. ABDOMEN: Soft, nontender. Liver and spleen not palpable. PSYCHIATRY: Alert and oriented times three. Mood and affect normal. EXTREMITIES: Left foot wound. INVESTIGATIONS: White count 7.2, hemoglobin 10.1, potassium 5.1. Bone scan suggestive of the distal osteomyelitis. ASSESSMENT: 1. Chest pain from stable angina. 2. Coronary artery disease with stent to the circumflex. 3. Chronic obstructive pulmonary disease in an ex-smoker. 4. Diabetes mellitus type 2, chronically on insulin uncontrolled with hypoglycemia. 5. Gastroesophageal reflux disease. 6. Hyperlipidemia. 7. Essential hypertension. 8. Primary osteoarthritis. 9. Peripheral artery disease with stents. 10.History of amputation of right big toe. 11.Left big toe bone scan suggestive of osteomyelitis. Toe fracture could be causing the same finding. 12.Sacral wound healed. 13.Depression, not otherwise specified. Discussed with Dr. Garcia from Infectious Disease for more definitive answer. We decided to do an MRI before definitive treatment is initiated. Depending on that, we will decide about the antibiotics. Care was discussed with the patient and Dr. Garcia. Initially radiological results were discussed with also the radiology attending. Total time spent today was about 40 to 45 minutes with over 25 minutes of discussion. MMODL / IJN: [id number] /
[2018-06-07] MEDS: VANCOMYCIN 2,000 MG in SODIUM CHLORIDE 0.9% 500 ML 500 ML IVPB SCH ×4 (00:02→23:42)
--- NOTE | 2018-06-07 00:13 | PN ---
PROGRESS NOTE DATE OF SERVICE: 06/06/2018. REASON FOR FOLLOWUP: Left big toe wound and a question of osteomyelitis. INTERVAL HISTORY: The patient is currently afebrile. He is breathing comfortably. Denies having any chest pain or shortness of breath. No abdominal pain or any worsening pain to the left foot big toe area. PHYSICAL EXAMINATION: Blood pressure 146/70 with a pulse of 77, temperature 97.6, he is 99% on room air. GENERAL DESCRIPTION: A middle-aged male lying in bed in no distress. RESPIRATORY SYSTEM: Unlabored breathing. Clear to auscultation anteriorly. HEART: S1 and S2. Regular rate and rhythm. ABDOMEN: Soft, no tenderness. EXTREMITIES: Left foot wound with no significant slough tissue. Minimal swelling but no redness. LABS: Hemoglobin is 10.1, white count 7.2, BUN of 34, creatinine 0.8. Wound culture presumptive MRSA. Blood culture so far negative. DIAGNOSTIC IMPRESSION AND PLAN: Patient with left big toe wound with abnormal x-ray, suspicious for fracture. The bone scan is positive as well, which could be seen both in osteomyelitis as well as fracture. The patient's wound is not deep on probing down to the bone. The case was discussed in detail with the radiologist as well as the attending physician. We will obtain MRI of the left big toe for better definition of his underlying condition. Continue vancomycin at this point and continue supportive care. MMODL / IJN: [id number] /
[2018-06-07 07:27] LABS: Glucose,Whole Blood 189 mg/dL (75-99)
[2018-06-07] MEDS: INSULIN ASPART (NovoLOG) 100 UNIT/ML VIAL SQ SCH ×3 (08:08→17:49)
[2018-06-07] MEDS: ISOSORBIDE MONONITRATE ER 30 MG TAB.ER.24H PO SCH ×2 (08:09→21:46)
[2018-06-07] MEDS: PREGABALIN 75 MG CAP PO SCH ×2 (08:09→21:45)
[2018-06-07] MEDS: LACTOBACILLUS ACIDOPH & BULGAR 1 EACH PACKET PO SCH (08:09)
[2018-06-07] MEDS: PANTOPRAZOLE 40 MG TABLET PO SCH (08:09)
[2018-06-07] MEDS: TAMSULOSIN 0.4 MG CAP.ER.24H PO SCH (08:09)
[2018-06-07] MEDS: DULoxetine HCL 60 MG CAPSULE.DR PO SCH (08:10)
[2018-06-07] MEDS: oxyCODONE ER 20 MG TAB.ER.12H PO SCH ×2 (08:10→21:45)
[2018-06-07] MEDS: CLOPIDOGREL 75 MG TAB PO SCH (08:10)
[2018-06-07] MEDS: FERROUS SULFATE 325 MG TAB PO SCH (08:10)
[2018-06-07] MEDS: ALLOPURINOL 100 MG TAB PO SCH (08:10)
[2018-06-07] MEDS: FUROSEMIDE 40 MG TAB PO SCH ×2 (08:10→16:18)
[2018-06-07] MEDS: METOPROLOL TARTRATE 50 MG TAB PO SCH ×2 (08:10→21:47)
[2018-06-07] MEDS: CHOLECALCIFEROL 1,000 UNIT TAB PO SCH (08:10)
[2018-06-07] MEDS: LOSARTAN 25 MG TAB PO SCH ×2 (08:10→21:47)
[2018-06-07] MEDS: SIMETHICONE 80 MG CHEWABLE PO SCH ×4 (08:11→21:46)
[2018-06-07] MEDS: LIDOCAINE 5% PATCH TOPICAL SCH (08:11)
[2018-06-07] MEDS: INSULIN DETEMIR (LEVEMIR) 100 UNIT/ML SYR SQ SCH ×2 (08:33→21:44)
[2018-06-07 11:44] LABS: Glucose,Whole Blood 264 mg/dL (75-99)
--- NOTE | 2018-06-07 12:01 | MR ---
EXAMINATION TYPE: MR foot LT wo/w con DATE OF EXAM: 06/07/2018 COMPARISON: Bone scan to 419, x-ray 06/02/2018 HISTORY: left big toe abnormal bone scan r/o osteomyelitis CONTRAST: Standard multiplanar, multisequence MRI departmental protocol utilizing 12.5 mL intravenous Gadavist gadolinium contrast. FINDINGS: There is diffuse soft tissue edema. At the level of the distal phalanx of the first digit there is di ffuse abnormal marrow signal alteration. In the distal margin of the proximal phalanx there also is a bnormal signal alteration. There is adjacent soft tissue edema and questionable soft tissue ulceration. IMPRESSION: 1. Diffuse marrow edema throughout the distal phalanx with evidence of a fracture. Extensive surround ing soft tissue edema. Differential diagnosis would include cellulitis with pathologic fracture secon yesenia to osteomyelitis of the distal phalanx. Correlate clinically.
[2018-06-07 12:32] LABS: Glucose,Whole Blood 269 mg/dL (75-99)
[2018-06-07 14:28] LABS: INR 0.9 (<1.2); Prothrombin Time 10.2 sec (9.0-12.0)
[2018-06-07] MEDS: ALPRAZolam 0.25 MG TAB PO PRN (16:18)
[2018-06-07 17:17] LABS: Glucose,Whole Blood 119 mg/dL (75-99)
[2018-06-07 19:52] LABS: Glucose,Whole Blood 173 mg/dL (75-99)
--- NOTE | 2018-06-07 21:32 | PN ---
PROGRESS NOTE DATE OF SERVICE: 06/07/2018. PRESENTING COMPLAINT: Left foot wound. INTERVAL HISTORY: This patient presented with chest pain by Cardiology. No further intervention, had a triple phase bone scan and also had an MRI today. Findings are inconclusive. Otherwise, no new issues. The patient is able to get around. REVIEW OF SYSTEMS: Done for constitutional, cardiovascular, GI, pulmonary and relevant findings as above. CURRENT MEDICATIONS: Reviewed that include IV vancomycin. PHYSICAL EXAMINATION: VITAL SIGNS: Temperature 97.8, pulse 93, respiratory 18, blood pressure 122/64, pulse ox 97% on room air. GENERAL APPEARANCE: Sitting up, comfortable. EYES: Pupils equal. Conjunctivae normal. NECK: JVD not raised. Mass not palpable. RESPIRATORY: Effort normal. LUNGS: Decreased breath sounds. CARDIOVASCULAR: First and second sounds normal. No edema. ABDOMEN: Soft, nontender. Liver and spleen not palpable. PSYCHIATRY: Alert and oriented times three. Mood and affect normal. EXTREMITY: Left big toe wound. INVESTIGATIONS: MRI results noted, inconclusive. INR 0.9. Accu-Cheks are noted. ASSESSMENT: 1. Left big toe wound with bone scan and MRI, both inconclusive about osteomyelitis. Will let Dr. Garcia make a clinical determination. 2. Chronic stable angina. 3. Coronary artery disease with prior history of stent to the circumflex. 4. Chronic obstructive pulmonary disease in an ex-smoker. 5. Diabetes mellitus type 2, chronically on insulin uncontrolled with hypoglycemia. 6. Gastroesophageal reflux disease. 7. Hyperlipidemia. 8. Essential hypertension. 9. Primary osteoarthritis. 10.Peripheral artery disease with stents. 11.History of amputation of the right big toe. 12.Sacral wound healing. 13.Depression, not otherwise specified. PLAN: Care was discussed with the patient. We will await further determination by Dr. Garcia in terms of antibiotics and duration. MMODL / IJN: [id number] /
[2018-06-07] MEDS: DIVALPROEX ER 250 MG TAB.ER.24H PO SCH (21:45)
[2018-06-07] MEDS ORDERED: VANCOMYCIN TROUGH DUE 1 EACH MISC MISCELLANE ONE (23:00)
--- NOTE | 2018-06-07 23:32 | PN ---
PROGRESS NOTE DATE OF SERVICE: 06/07/2018. REASON FOR FOLLOW UP: Left big toe osteomyelitis. INTERVAL HISTORY: The patient is currently afebrile, has been breathing comfortably. Denies any chest pain. No shortness of breath. No cough or abdominal pain or any worsening pain to the left big toe area. PHYSICAL EXAMINATION: Blood pressure is 122/74 with a pulse of 83, temperature 97.8. He is 97% on room air. General description is a middle aged male up in the chair in no distress. Respiratory system: Unlabored breathing. Clear to auscultation anteriorly. Heart S1, S2. Regular rate and rhythm. Abdomen soft, no tenderness. LABS: BUN of 34, creatinine 0.89. Wound culture has been MRSA. The MRI is also suspicious for left big toe osteomyelitis. DIAGNOSTIC IMPRESSION AND PLAN: Patient with left big toe osteomyelitis on the basis of the bone scan as well as MRI. Culture positive for MRSA. Blood culture has been negative. Patient at this time will get the PICC line and continue with vancomycin pharmacy to dose target to monitoring of CBC, BMP and sed rate. Continue supportive care. MMODL / IJN: [id number] /
[2018-06-08 06:54] LABS: Glucose,Whole Blood 206 mg/dL (75-99)
[2018-06-08] MEDS: INSULIN ASPART (NovoLOG) 100 UNIT/ML VIAL SQ SCH ×3 (07:17→17:32)
[2018-06-08] MEDS: LACTOBACILLUS ACIDOPH & BULGAR 1 EACH PACKET PO SCH (09:00)
[2018-06-08] MEDS: DULoxetine HCL 60 MG CAPSULE.DR PO SCH (09:00)
[2018-06-08] MEDS: FUROSEMIDE 40 MG TAB PO SCH ×2 (09:00→15:41)
[2018-06-08] MEDS: ALLOPURINOL 100 MG TAB PO SCH (09:00)
[2018-06-08] MEDS: ISOSORBIDE MONONITRATE ER 30 MG TAB.ER.24H PO SCH ×2 (09:00→21:17)
[2018-06-08] MEDS: LOSARTAN 25 MG TAB PO SCH ×2 (09:01→21:17)
[2018-06-08] MEDS: PANTOPRAZOLE 40 MG TABLET PO SCH (09:01)
[2018-06-08] MEDS: oxyCODONE ER 20 MG TAB.ER.12H PO SCH ×2 (09:01→21:17)
[2018-06-08] MEDS: FERROUS SULFATE 325 MG TAB PO SCH (09:01)
[2018-06-08] MEDS: CHOLECALCIFEROL 1,000 UNIT TAB PO SCH (09:02)
[2018-06-08] MEDS: METOPROLOL TARTRATE 50 MG TAB PO SCH ×2 (09:02→21:17)
[2018-06-08] MEDS: TAMSULOSIN 0.4 MG CAP.ER.24H PO SCH (09:03)
[2018-06-08] MEDS: SIMETHICONE 80 MG CHEWABLE PO SCH ×4 (09:03→21:18)
[2018-06-08] MEDS: PREGABALIN 75 MG CAP PO SCH ×2 (09:03→21:29)
[2018-06-08] MEDS: LIDOCAINE 5% PATCH TOPICAL SCH (09:04)
[2018-06-08] MEDS: INSULIN DETEMIR (LEVEMIR) 100 UNIT/ML SYR SQ SCH ×2 (09:04→21:16)
[2018-06-08 11:23] LABS: Anion Gap 7 mmol/L; Blood Urea Nitrogen 25 mg/dL (9-20); Calcium 9.1 mg/dL (8.4-10.2); Carbon Dioxide 30 mmol/L (22-30); Chloride 104 mmol/L (98-107); Glucose 136 mg/dL (74-99); Potassium 4.8 mmol/L (3.5-5.1); Sodium 141 mmol/L (137-145)
[2018-06-08] MEDS: VANCOMYCIN 2,000 MG in SODIUM CHLORIDE 0.9% 500 ML 500 ML IVPB SCH ×2 (12:18→23:11)
--- NOTE | 2018-06-08 12:24 | CDI ---
Documentation Clarification Form Date: 06/08/2018 12:15:23 PM From: Monserrat Hernandez RN, CCDS Admit Date: 06/05/2018 2:48:00 PM Patient Name: Jeremiah Pedroza Visit Number: [id number] ATTENTION: The Clinical Documentation Specialists (CDI) and [facility] Coding Staff appreciate your assistance in clarifying documentation. Please respond to the clarification below the line at the bottom and electronically sign. The CDI & [facility] Coding staff will review the response and follow-up if needed. Please note: Queries are made part of the Legal Health Record. If you have any questions, please contact the author of this message via ITS. Dr. Lisandro Yanez CHF is documented in the PMH of the H&P and requires further specificity. History/Risk Factors: HTN, Hyperlipidemia, DM, CAD, COPD, Heart failure Clinical Indicators: VS/Pulse OX: Temp 99.14, hr 90, RR 20, B/P 172/89, spo2 99% ra BNP: 896 06/02/18 Echocardiogram Results: EF 45-50% with basal inferior LV hypokinesis 06/02 Chest X Ray: mild pulmonary vascular congestion, mild peribronchial cuffing , flattening of bilateral hemidiaphragms, suggestive of COPD Treatment: Lasix 40 mg PO BID Cozaar 25 mg PO BID In your professional opinion, can you please clarify the acuity and type of CHF if known? Systolic Heart Failure: Acute Chronic Acute on Chronic Diastolic Heart Failure: Acute Chronic Acute on Chronic Systolic & Diastolic Heart Failure: Acute Chronic Acute on Chronic Heart Failure Unable to Determine Other, please specify (Last Revision: July 2017) unable to determine MTDD
[2018-06-08 17:11] LABS: Glucose,Whole Blood 270 mg/dL (75-99)
--- NOTE | 2018-06-08 18:45 | PN ---
PROGRESS NOTE DATE OF SERVICE: 06/08/2018 PRESENTING COMPLAINT: Left big toe wound. INTERVAL HISTORY: The patient presented with chest pain, per Cardiology no further intervention. Also had a left big toe wound. Per Dr. Garcia, the patient has osteomyelitis now. The patient will be getting a PICC line. Otherwise stable. REVIEW OF SYSTEMS: Done for constitutional, cardiovascular, GI, pulmonary and relevant findings as above. CURRENT MEDICATIONS: Reviewed that includes IV vancomycin. PHYSICAL EXAMINATION: VITAL SIGNS: Temperature 98.1, pulse 79, respiration 12, blood pressure 94/62, pulse ox 98% on room air. GENERAL APPEARANCE: Sitting at the edge of bed, eating his meal. EYES: Pupils are normal. Conjunctivae normal. NECK: JVD not raised. Mass not palpable. RESPIRATORY: Effort normal. LUNGS: Decreased breath sounds. CARDIOVASCULAR: 1st and 2nd sounds normal. No edema. ABDOMEN: Soft, nontender. Liver and spleen not palpable. PSYCHIATRY: Alert and oriented times three. Mood and affect normal. Left big toe has dressing in place. INVESTIGATIONS: Potassium 4.8, BUN 25, creatinine 0.71. ASSESSMENT: 1. Left big toe distal phalanx acute osteomyelitis. 2. Chronic stable angina. 3. Coronary artery disease with prior history of stent to the circumflex. 4. Chronic obstructive pulmonary disease in an ex-smoker. 5. Diabetes mellitus type 2, chronically on insulin, uncontrolled with hypoglycemia. 6. Gastroesophageal reflux disease. 7. Hyperlipidemia. 8. Essential hypertension. 9. Primary osteoarthritis. 10.Peripheral artery disease with stents. 11.History of amputation of the right big toe. 12.Sacral wound healed. 13.Depression, not otherwise specified. 14.Chronic low back pain from arthritis. PLAN: The patient is getting a PICC line and will be requiring vancomycin. The patient may be going to the [facility] for his antibiotics. MMODL / IJN: [id number] /
[2018-06-08 19:59] LABS: Glucose,Whole Blood 158 mg/dL (75-99)
[2018-06-08] MEDS: DIVALPROEX ER 250 MG TAB.ER.24H PO SCH (21:17)
[2018-06-09 07:02] LABS: Glucose,Whole Blood 122 mg/dL (75-99)
--- NOTE | 2018-06-09 08:16 | PN ---
PROGRESS NOTE DATE OF SERVICE: 06/08/2018. REASON FOR FOLLOWUP: Left big toe acute osteomyelitis with underlying diabetes mellitus. INTERVAL HISTORY: The patient is currently afebrile, has been breathing comfortably. Denies having any chest pain or any cough. No abdominal pain. Currently waiting for the PICC line and outpatient IV antibiotic coverage. PHYSICAL EXAMINATION: On examination, blood pressure 113/65 with a pulse 87, temperature 99.2. He is 97% on room air. General description is a middle-aged male lying in bed in no distress. RESPIRATORY SYSTEM: Unlabored breathing, clear to auscultation anteriorly. HEART: S1, S2. Regular rate and rhythm. ABDOMEN: Soft, no tenderness. Left big toe currently with minimal swelling, no redness, no drainage. DIAGNOSTIC IMPRESSION AND PLAN: Patient with left big toe acute osteomyelitis with underlying diabetes mellitus. Waiting for the PICC line placement for outpatient IV vancomycin for at least a total of 6 weeks with weekly noting of CBC BMP and Sed rate. Continue with supportive care. MMODL / IJN: [id number] /
[2018-06-09] MEDS: INSULIN DETEMIR (LEVEMIR) 100 UNIT/ML SYR SQ SCH ×2 (08:48→23:14)
[2018-06-09] MEDS: LACTOBACILLUS ACIDOPH & BULGAR 1 EACH PACKET PO SCH (08:48)
[2018-06-09] MEDS: METOPROLOL TARTRATE 50 MG TAB PO SCH ×2 (08:48→20:20)
[2018-06-09] MEDS: CHOLECALCIFEROL 1,000 UNIT TAB PO SCH (08:48)
[2018-06-09] MEDS: DULoxetine HCL 60 MG CAPSULE.DR PO SCH (08:48)
[2018-06-09] MEDS: oxyCODONE ER 20 MG TAB.ER.12H PO SCH ×2 (08:49→20:20)
[2018-06-09] MEDS: FUROSEMIDE 40 MG TAB PO SCH ×2 (08:49→16:14)
[2018-06-09] MEDS: ALLOPURINOL 100 MG TAB PO SCH (08:49)
[2018-06-09] MEDS: LOSARTAN 25 MG TAB PO SCH ×2 (08:49→20:21)
[2018-06-09] MEDS: PANTOPRAZOLE 40 MG TABLET PO SCH (08:49)
[2018-06-09] MEDS: LIDOCAINE 5% PATCH TOPICAL SCH (08:50)
[2018-06-09] MEDS: ISOSORBIDE MONONITRATE ER 30 MG TAB.ER.24H PO SCH ×2 (08:50→20:21)
[2018-06-09] MEDS: FERROUS SULFATE 325 MG TAB PO SCH (08:50)
[2018-06-09] MEDS: INSULIN ASPART (NovoLOG) 100 UNIT/ML VIAL SQ SCH ×3 (08:50→17:01)
[2018-06-09] MEDS: SIMETHICONE 80 MG CHEWABLE PO SCH ×4 (08:51→23:14)
[2018-06-09] MEDS: PREGABALIN 75 MG CAP PO SCH ×2 (08:53→20:20)
[2018-06-09] MEDS: TAMSULOSIN 0.4 MG CAP.ER.24H PO SCH (08:54)
--- NOTE | 2018-06-09 09:22 | PN ---
PROGRESS NOTE DATE OF SERVICE: 06/08/2018. REASON FOR FOLLOWUP: Left big toe acute osteomyelitis with underlying diabetes mellitus. INTERVAL HISTORY: The patient is currently afebrile, has been breathing comfortably. Denies having any chest pain or any cough. No abdominal pain. He is currently waiting for the PICC line and outpatient IV antibiotic coverage. PHYSICAL EXAMINATION: On examination, blood pressure 113/65 with a pulse of 87, temperature 99.2. He is 97% on room air. General description is a middle-aged male lying in bed in no distress. RESPIRATORY SYSTEM: Unlabored breathing, clear to auscultation anteriorly. HEART: S1, S2. Regular rate and rhythm. ABDOMEN: Soft, no tenderness. Left big toe currently with minimal swelling, no redness, no drainage. DIAGNOSTIC IMPRESSION AND PLAN: Patient with left big toe acute osteomyelitis with underlying diabetes mellitus. Waiting for the PICC line placement for outpatient IV vancomycin for at least a total of 6 weeks with weekly noting of CBC, BMP and Sed rate. Continue supportive care. MMODL / IJN: [id number] /
[2018-06-09 11:30] LABS: Glucose,Whole Blood 257 mg/dL (75-99)
[2018-06-09] MEDS: VANCOMYCIN 2,000 MG in SODIUM CHLORIDE 0.9% 500 ML 500 ML IVPB SCH ×2 (11:43→23:14)
[2018-06-09] MEDS: ALPRAZolam 0.25 MG TAB PO PRN (16:17)
[2018-06-09 16:48] LABS: Glucose,Whole Blood 108 mg/dL (75-99)
[2018-06-09 20:20] LABS: Glucose,Whole Blood 159 mg/dL (75-99)
[2018-06-09] MEDS: DIVALPROEX ER 250 MG TAB.ER.24H PO SCH (20:21)
--- NOTE | 2018-06-09 22:43 | PN ---
PROGRESS NOTE DATE OF SERVICE: 06/09/2018 PRESENTING COMPLAINT: Left big toe wound. INTERVAL HISTORY: Patient admitted with chest pain. Per Cardiology, no further workup. Also been diagnosed to have left big toe osteomyelitis on IV antibiotics. I saw this patient this afternoon pending to go to the [facility] with antibiotics. PICC line in place. REVIEW OF SYSTEMS: Done for constitutional, cardiovascular, GI, pulmonary; relevant findings as above. CURRENT MEDICATIONS: Reviewed that include IV vancomycin. PHYSICAL EXAMINATION: VITAL SIGNS: Temperature 98.3, pulse 75, respiratory rate 17, blood pressure 98/58, pulse ox 95% on room air. GENERAL APPEARANCE: Sitting at the edge of bed, eating his meal. EYES: Pupils equal. Conjunctivae normal. NECK: JVD not raised. Mass not palpable. RESPIRATORY: Effort normal. LUNGS: Decreased breath sounds. CARDIOVASCULAR: First and second sounds normal. No edema. ABDOMEN: Soft, nontender. Liver and spleen not palpable. PSYCHIATRY: Alert and oriented times three. Mood and affect normal. MUSCULOSKELETAL: Wound of the left big toe. INVESTIGATIONS: Accu-Cheks are noted. ASSESSMENT: 1. Left big toe distal phalanx acute osteomyelitis, present on admission. 2. Chronic stable angina. 3. Coronary artery disease with prior history of stent to the circumflex. 4. Chronic obstructive pulmonary disease in an ex-smoker. 5. Diabetes mellitus type 2, chronically on insulin uncontrolled with hypoglycemia and hyperglycemia. 6. Gastroesophageal reflux disease. 7. Hyperlipidemia. 8. Essential hypertension. 9. Primary osteoarthritis. 10.Peripheral artery disease with stents. 11.History of amputation of the right big toe. 12.Sacral wound, healed. 13.Depression, not otherwise specified. 14.Chronic low back pain from arthritis. PLAN: Continue current medication and treatment plan. Antibiotics for the osteomyelitis per Dr. Garcia. The patient will be going to the [facility] for his antibiotics. MMODL / IJN: [id number] /
--- NOTE | 2018-06-10 04:46 | PN ---
PROGRESS NOTE DATE OF SERVICE: 06/09/2018 REASON FOR FOLLOW UP: Left big toe acute MRSA osteomyelitis with underlying diabetes mellitus. INTERVAL HISTORY: The patient is currently afebrile, has been breathing comfortably. Denies having any chest pain, shortness of breath or cough. No abdominal pain or any diarrhea. Currently waiting for outpatient antibiotic arrangement for discharge. On examination blood pressure 149/71 with a pulse of 81, temperature 97.8. He is 96% on room air. GENERAL DESCRIPTION: A middle aged male up in the chair in no distress. RESPIRATORY SYSTEM: Unlabored breathing. Clear to auscultation anteriorly. HEART: S1, S2. Regular rate and rhythm. ABDOMEN: Soft, no tenderness. Left big toe currently with minimal swelling. No drainage on the dressing. LABS: No new labs been obtained today. Blood culture has been negative. DIAGNOSTIC IMPRESSION AND PLAN: Patient with left big toe osteomyelitis. Patient currently waiting for the outpatient antibiotic arrangement for discharge. Prescription has been provided with the watch caser. Local care to continue with Aquacel Silver dressing, keep the area off the pressure and continue vancomycin 2 g q.12, dose adjusted for ( ) level. Continue supportive care. MMODL / IJN: [id number] /
[2018-06-10 07:13] LABS: Glucose,Whole Blood 220 mg/dL (75-99)
[2018-06-10] MEDS: INSULIN ASPART (NovoLOG) 100 UNIT/ML VIAL SQ SCH ×2 (07:43→13:20)
[2018-06-10] MEDS: FUROSEMIDE 40 MG TAB PO SCH ×2 (07:44→16:50)
[2018-06-10] MEDS: ALLOPURINOL 100 MG TAB PO SCH (07:44)
[2018-06-10] MEDS: CHOLECALCIFEROL 1,000 UNIT TAB PO SCH (07:44)
[2018-06-10] MEDS ORDERED: VANCOMYCIN TROUGH DUE 1 EACH MISC MISCELLANE ONE (11:00)
[2018-06-10] MEDS: LIDOCAINE 5% PATCH TOPICAL SCH (11:02)
[2018-06-10] MEDS: LACTOBACILLUS ACIDOPH & BULGAR 1 EACH PACKET PO SCH (11:03)
[2018-06-10] MEDS: PREGABALIN 75 MG CAP PO SCH (11:03)
[2018-06-10] MEDS: ISOSORBIDE MONONITRATE ER 30 MG TAB.ER.24H PO SCH (11:03)
[2018-06-10] MEDS: oxyCODONE ER 20 MG TAB.ER.12H PO SCH (11:03)
[2018-06-10] MEDS: PANTOPRAZOLE 40 MG TABLET PO SCH (11:03)
[2018-06-10] MEDS: DULoxetine HCL 60 MG CAPSULE.DR PO SCH (11:03)
[2018-06-10] MEDS: SIMETHICONE 80 MG CHEWABLE PO SCH ×2 (11:03→15:20)
[2018-06-10] MEDS: TAMSULOSIN 0.4 MG CAP.ER.24H PO SCH (11:04)
[2018-06-10] MEDS: FERROUS SULFATE 325 MG TAB PO SCH (11:04)
[2018-06-10] MEDS: METOPROLOL TARTRATE 50 MG TAB PO SCH (11:04)
[2018-06-10] MEDS: LOSARTAN 25 MG TAB PO SCH (11:04)
[2018-06-10] MEDS: INSULIN DETEMIR (LEVEMIR) 100 UNIT/ML SYR SQ SCH (11:04)
[2018-06-10 11:12] VITALS: RESP 16
[2018-06-10 11:38] LABS: Glucose,Whole Blood 171 mg/dL (75-99)
[2018-06-10] MEDS: VANCOMYCIN 2,000 MG in SODIUM CHLORIDE 0.9% 500 ML 500 ML IVPB SCH (13:20)
--- NOTE | 2018-06-10 14:35 | DS ---
DISCHARGE SUMMARY DATE OF ADMISSION: 06/02/2018 DATE OF DISCHARGE: 06/10/2018 FINAL DIAGNOSES: 1. Left big toe distal phalanx acute osteomyelitis, POA. 2. Coronary artery disease with prior history of stent to the circumflex. 3. Chronic obstructive pulmonary disease in an ex-smoker. 4. Diabetes mellitus, type 2, chronically on insulin, uncontrolled with hypo- and hyperglycemia. 5. Gastroesophageal reflux disease. 6. Hyperlipidemia. 7. Essential hypertension. 8. Primary osteoarthritis. 9. Peripheral arterial disease with stent. 10.History of amputation of the right big toe. 11.Sacral wound, healed. 12.Depression not otherwise specified. 13.Chronic low back pain from arthritis, being followed by Dr. Cortez. HOSPITAL COURSE: This patient presented with chest pain and was seen by Cardiology; not for any further intervention. Patient did have a 2-D echo that showed an ejection fraction of 45% to 50%, some wall motion abnormality. Patient had no further episodes. The patient has got a chronic left big toe wound and underwent a bone scan and MRI. He was seen by Dr. Garcia; felt to be osteomyelitis. Patient will receive 5 more weeks of IV antibiotics. Care was discussed with the patient. Questions were answered. PHYSICAL EXAMINATION: Temperature 99, pulse 101, respiration 16, blood pressure 156/65, pulse ox 96% on room air. LUNGS: Fair air entry. CARDIOVASCULAR: First and second sounds normal. ABDOMEN: Soft, nontender. DISCHARGE MEDICATIONS: 1. Iron 325 p.o. daily. 2. Vitamin D3 1000 units p.o. daily. 3. Lasix 40 mg p.o. b.i.d. 4. Insulin Toujeo 35 units subcutaneously b.i.d. 5. Imdur ER 30 mg p.o. daily. 6. Cozaar 25 mg daily. 7. ProAir 1-2 puffs q.6 p.r.n. 8. Cymbalta 60 mg a day. 9. Lactobacillus 3 tablets p.o. daily. 10.Omeprazole 40 mg p.o. daily. 11.Plavix 75 mg p.o. daily. 12.Xarelto 15 mg with supper. 13.Allopurinol 100 mg p.o. daily. 14.Lopressor 100 mg b.i.d. 15.Flomax 0.4 mg p.o. daily. 16.Depakote ER 250 mg p.o. at bedtime. 17.NovoLog 15 units before meals t.i.d. 18.Nitrostat 0.4 sublingually q.5 p.r.n. 19.Daptomycin 800 mg IV q.24 for 42 doses. 20.Xanax 0.25 p.o. b.i.d. p.r.n. for anxiety. 21.Lyrica 150 mg p.o. b.i.d. 22.Mylicon 80 mg p.o. q.i.d. 23.OxyContin 40 mg p.o. q.12. DISPOSITION: [facility]. Follow up with Dr. Naqvi at the [facility]. Follow up with Dr. Garcia in 3 weeks. Follow up with Cardiology in 10 days. MMODL / IJN: [id number] /
[2018-06-10 14:50] VITALS: BP 109/58; PULSE 76; TEMP 99.4
--- NOTE | 2018-06-10 16:02 | PN ---
PROGRESS NOTE DATE OF SERVICE: 06/10/2018. REASON FOR FOLLOWUP: Left big toe osteomyelitis, acute, with underlying diabetes mellitus. INTERVAL HISTORY: The patient is currently afebrile, has been breathing comfortably. Denies having any chest pain or any cough. No abdominal pain or any worsening pain to the left big toe area. PHYSICAL EXAMINATION: Blood pressure 109/58 with a pulse of 76, temperature 99.4. He is 94% on room air. General description is a middle-aged male up in the chair in no distress. RESPIRATORY SYSTEM: Unlabored breathing. Clear to auscultation anteriorly. HEART: S1, S2. Regular rate and rhythm. ABDOMEN: Soft. No tenderness. Left big toe is currently dressed up. No obvious drainage on the dressing. His sedimentation rate was 47, CRP 18.6. Vancomycin trough is therapeutic at 15.3. Patient at this time is to continue with vancomycin, Pharmacy to dose, target of 15, for another 5 weeks to finish course of therapy. Local wound care with Aquacel Silver dressing. Offloading. Follow up with us in the wound center next week. All his questions were answered. MMODL / IJN: [id number] /
--- NOTE | 2018-06-20 07:55 | IR ---
PICC LINE PLACEMENT: HISTORY: Infection requiring long-term antibiotic therapy PROCEDURE: Ultrasound and fluoroscopic guidance of PICC line placement. COMPLICATIONS: None ANESTHESIA: 1. 1% Lidocaine locally. FINDINGS/TECHNIQUE: The procedure was explained to the patient. The risks, complications, benefits and alternatives were discussed and any questions were answered. Informed consent was obtained. The patient was placed supine on the fluoroscopic table and prepped and draped in the usual sterile fash ion. Utilizing a 21 gauge needle and sonographic and fluoroscopic guidance, access in the left basi lic vein vein was achieved and there is placement of a 0.018 guidewire. The vein is patent. A 4-F s glo was placed over the guidewire. The guidewire and dilator were removed and a 4-F. PICC line was placed through the sheath with the tip at the level of the SVC. The sheath was removed, the cathete r was flushed and sutured into position. The patient was stable throughout the procedure and remaine d stable upon discharge from the Department of Radiology. The vein puncture was patent under ultrasound. A carrington scale image was obtained to document patency of the vein punctured. All elements of the maximal barrier technique were utilized. FLUOROSCOPY TIME: 0.4 minutes and one image submitted IMPRESSION: Successful PICC line placement under ultrasound and fluoroscopic guidance.
== END 2018-06-10 17:30 | DRG 638 ==
LOC: EC 04:32 → 3SCARD 07:30 → 2CATHESU 08:25 → 3SCARD 14:39 → 4SSUR 06-04 11:01 → OBSVTOIN 06-05 14:48
PROVIDERS: ADMIT Hospitalist; ATTEND Hospitalist
PROC: 02HV33Z Insertion of Infusion Device into Superior Vena Cava, Percutaneous Approach (ICD-10-PCS; principal; 2018-06-05)
DX: E11.69 Type 2 diabetes mellitus with other specified complication (principal); M86.172 Other acute osteomyelitis, left ankle and foot; I50.32 Chronic diastolic (congestive) heart failure; E11.42 Type 2 diabetes mellitus with diabetic polyneuropathy; E11.51 Type 2 diabetes mellitus with diabetic peripheral angiopathy without gangrene; E11.621 Type 2 diabetes mellitus with foot ulcer; I27.20 Pulmonary hypertension, unspecified; I11.0 Hypertensive heart disease with heart failure; I08.1 Rheumatic disorders of both mitral and tricuspid valves; L89.899 Pressure ulcer of other site, unspecified stage; E11.65 Type 2 diabetes mellitus with hyperglycemia; E11.649 Type 2 diabetes mellitus with hypoglycemia without coma; S92.422A Displaced fracture of distal phalanx of left great toe, initial encounter for closed fracture; I49.3 Ventricular premature depolarization; J44.9 Chronic obstructive pulmonary disease, unspecified; I25.118 Atherosclerotic heart disease of native coronary artery with other forms of angina pectoris; K21.9 Gastro-esophageal reflux disease without esophagitis; E78.5 Hyperlipidemia, unspecified; F32.9 Major depressive disorder, single episode, unspecified; F41.9 Anxiety disorder, unspecified; M19.91 Primary osteoarthritis, unspecified site; M54.5 Low back pain; G89.29 Other chronic pain; I25.2 Old myocardial infarction; L40.9 Psoriasis, unspecified; E66.9 Obesity, unspecified; Z68.38 Body mass index [BMI] 38.0-38.9, adult; Z79.02 Long term (current) use of antithrombotics/antiplatelets; Z79.4 Long term (current) use of insulin; Z79.01 Long term (current) use of anticoagulants; Z79.891 Long term (current) use of opiate analgesic; Z79.899 Other long term (current) drug therapy; Z71.3 Dietary counseling and surveillance; Z86.718 Personal history of other venous thrombosis and embolism; Z87.01 Personal history of pneumonia (recurrent); Z86.711 Personal history of pulmonary embolism; Z87.820 Personal history of traumatic brain injury; Z86.19 Personal history of other infectious and parasitic diseases; Z86.14 Personal history of Methicillin resistant Staphylococcus aureus infection; Z89.421 Acquired absence of other right toe(s); Z86.73 Personal history of transient ischemic attack (TIA), and cerebral infarction without residual deficits; Z87.891 Personal history of nicotine dependence; Z95.820 Peripheral vascular angioplasty status with implants and grafts; Z89.411 Acquired absence of right great toe; Z95.5 Presence of coronary angioplasty implant and graft; Z82.49 Family history of ischemic heart disease and other diseases of the circulatory system; Z80.8 Family history of malignant neoplasm of other organs or systems
CPT/HCPCS: 36415; 36573; 71046; 71275; 74174; 78315; 80048; 80053; 80202; 82550; 82553; 83036; 83735; 83880; 84484; 85025; 85610; 85652; 85730; 86140; 87040; 87070; 87075; 87077; 87186; 87205; 93005; 93306; 94760; 99285

== ENCOUNTER 2018-06-26 10:23 | Inpatient (IN) | payer MEDICARE ==
[2018-06-26] MEDS ORDERED: SODIUM CHLORIDE 0.9% 1,000 ML IV STA (10:59)
[2018-06-26] MEDS ORDERED: FUROSEMIDE 10 MG/ML 4 ML VIAL IV STA (10:59)
--- NOTE | 2018-06-26 11:04 | ED ---
SOB HPI - General Chief Complaint: Shortness of Breath Stated Complaint: KRIS Time Seen by Provider: 06/26/18 10:35 Source: RN notes reviewed, old records reviewed - History of Present Illness Initial Comments: Patient 63-year-old male with past medical history of CHF, chronic infection of her left great toe receiving IV vancomycin, diabetes, CAD. Patient presents today with complaints of worsening shortness of breath. Patient states that shortness of breath is worse with laying down. He states that he has noticed increased swelling over bilateral lower extremities and arms. Patient states that he normally does not require oxygen. Patient states that they placed on 4 L of oxygen he still struggling to breathe. Patient states that he has had worsening symptoms over the past 2 days. Patient states that he also had episodes of disorientation yesterday while he was at his extended care facility , reported by nursing staff. He states that he feels well at baseline today. - Related Data Home Medications Medication Instructions Recorded Confirmed Ferrous Sulfate [Iron (65 MG 325 mg PO DAILY 04/05/17 06/26/18 Elemental)] Cholecalciferol [Vitamin D3] 1,000 unit PO DAILY 09/19/17 06/26/18 Furosemide [Lasix] 40 mg PO BID 09/19/17 06/26/18 Insulin Glargine,Hum.rec.anlog 35 unit SQ BID 09/19/17 06/26/18 [Toujeo Solostar] Isosorbide Mononitrate ER [Imdur] 30 mg PO DAILY 09/19/17 06/26/18 Losartan [Cozaar] 25 mg PO DAILY 09/19/17 06/26/18 Albuterol Sulfate [Proair Hfa] 1 - 2 puff INHALATION RT-Q6H PRN 09/26/17 DULoxetine HCL [Cymbalta] 60 mg PO DAILY 09/26/17 06/26/18 Lactobacillus Acidophilus 3 tab PO HS 09/26/17 06/26/18 [Acidophilus] Metoprolol Tartrate [Lopressor] 100 mg PO BID@0800,1600 02/14/18 06/26/18 Tamsulosin HCl [Flomax] 0.4 mg PO DAILY 02/14/18 06/26/18 INSULIN ASPART (NovoLOG) [NovoLOG See Protocol SQ AC-TID 06/02/18 06/26/18 (formulary)] Nitroglycerin Sl Tabs [Nitrostat] 0.4 mg SUBLINGUAL Q5M PRN 06/02/18 06/26/18 Albuterol Nebulized [Ventolin 2.5 mg INHALATION RT-Q6H PRN 06/26/18 06/26/18 Nebulized] Citalopram Hydrobromide [CeleXA] 20 mg PO DAILY@0800 06/26/18 06/26/18 Pantoprazole Sodium [Protonix] 40 mg PO DAILY 06/26/18 06/26/18 Vancomycin 1,500 mg IVPB Q12HR 06/26/18 06/26/18 oxyCODONE HCL [OxyCONTIN] 10 mg PO Q6H PRN 06/26/18 06/26/18 Previous Rx's Medication Instructions Recorded Clopidogrel [Plavix] 75 mg PO DAILY #30 tab 09/28/17 Rivaroxaban [Xarelto] 15 mg PO W/SUPPER #30 tab 09/28/17 Allopurinol [Zyloprim] 100 mg PO DAILY #30 tablet 11/15/17 Divalproex ER [Depakote ER] 250 mg PO HS #30 tab.er.24h 02/27/18 ALPRAZolam [Xanax] 0.25 mg PO BID PRN #6 tab 06/10/18 Pregabalin [Lyrica] 150 mg PO BID #6 capsule 06/10/18 Simethicone Chew [Mylicon Chew] 80 mg PO QID chew 06/10/18 oxyCODONE HCL [OxyCONTIN] 40 mg PO Q12H #6 tab.er.12h 06/10/18 Allergies Allergy/AdvReac Type Severity Reaction Status Date / Time No Known Allergies Allergy Verified 06/26/18 11:46 Review of Systems ROS Statement: Those systems with pertinent positive or pertinent negative responses have been documented in the HPI. ROS Other: All systems not noted in ROS Statement are negative. Past Medical History Past Medical History: Coronary Artery Disease (CAD), Heart Failure, COPD, CVA/ TIA, Diabetes Mellitus, Deep Vein Thrombosis (DVT), GERD/Reflux, Hyperlipidemia , Hypertension, Myocardial Infarction (ID), Osteoarthritis (OA), Pneumonia, Pulmonary Embolus (PE), Skin Disorder, Vascular Disorder Additional Past Medical History / Comment(s): IDDM type II, neuropathy bilateral feet/legs/arms and hands, recently treated at [facility] for L great toe ulcer which healed but pt states just starting to reopen, January 2018 pt pt was in coma/vented at [facility] d/t R 2nd toe infection, PVD, arthritis in low back and bilateral hips, chronic low back pain, TIA x2, 2014 fall with brain bleed, gastric ulcer, psoriasis. Last Myocardial Infarction Date:: 08/2017 History of Any Multi-Drug Resistant Organisms: MRSA Date of last positivie culture/infection: 06/04/18 MDRO Source:: FOOT Past Surgical History: Heart Catheterization With Stent, Orthopedic Surgery, Tonsillectomy Additional Past Surgical History / Comment(s): Multiple cardiac caths and PCI with stents, L leg has 2 stents, L/R great toe debridements, 2nd R toe amp, bunionectomy-cannot recall laterality, bilateral rotator cuff surgery, colonoscopy. Past Anesthesia/Blood Transfusion Reactions: Motion Sickness Additional Past Anesthesia/Blood Transfusion Reaction / Comment(s): pt stated has had a blood transfusion in past-no known reaction Date of Last Stent Placement:: 2016 Smoking Status: Former smoker - Past Family History Mother Family Medical History: Cancer, Coronary Artery Disease (CAD), Myocardial Infarction (ID) Additional Family Medical History / Comment(s): Mother had brain cancer. She at the age of 53 yrs from a ID Father Family Medical History: Coronary Artery Disease (CAD), Myocardial Infarction (ID ) Additional Family Medical History / Comment(s): Father of a ID at the age of 63 yrs. General Exam - General Exam Comments Initial Comments: 63-year-old male. Alert and oriented 3. Patient appears sitting upright leaning forward. is currently on 4 L of oxygen oxygen saturation at 97% on room air. Reports he typically does not wear oxygen. General appearance: alert, in no apparent distress Head exam: Present: atraumatic, normocephalic, normal inspection Eye exam: Present: normal appearance, PERRL, EOMI. Absent: scleral icterus, conjunctival injection, periorbital swelling ENT exam: Present: normal exam, mucous membranes moist Neck exam: Present: normal inspection. Absent: tenderness, meningismus, lymphadenopathy Respiratory exam: Present: decreased breath sounds. Absent: normal lung sounds bilaterally, respiratory distress, wheezes, rales, rhonchi, stridor Cardiovascular Exam: Present: regular rate GI/Abdominal exam: Present: soft, normal bowel sounds. Absent: distended, tenderness, guarding, rebound, rigid Extremities exam: Present: normal inspection, full ROM, normal capillary refill , pedal edema, other (Bilateral 3+ pitting edema. Patient has a bandage over the left great toe for recent ulceration.). Absent: tenderness, joint swelling , calf tenderness Back exam: Present: normal inspection Neurological exam: Present: alert, oriented X3, CN II-XII intact Psychiatric exam: Present: normal affect, normal mood Skin exam: Present: warm, dry, intact, normal color. Absent: rash Course Vital Signs 06/26/18 11:23 Temperature 98.3 F Pulse Rate 74 Respiratory 20 Rate Blood Pressure 154/85 O2 Sat by Pulse 99 Oximetry Medical Decision Making - Medical Decision Making 63-year-old male presents emergency department today with complaints of difficulty breathing the past 2 days. His history of CHF coronary disease. He is currently receiving IV vancomycin for an infected left great toe from diabetic ulcer. At this time Patient has no fever or chills. He reports a dry breath a cough. Lung sounds are diminished. Does have 2+ bilateral pitting edema. Patient given 1 dose of IV Lasix as. Concern for CHF. Chest x-ray shows diffuse pneumonia or CHF. I believe it's more likely related to CHF with no fever or productive cough. In Patient is ready currently on broad-spectrum antibiotics. He has been admitted at this time with consult to cardiology. We' ll put the Patient on Lasix and admitted for CHF exacerbation. - Lab Data Result diagrams: 06/26/18 11:15 06/26/18 11:15 Lab Results 06/26/18 06/26/18 06/26/18 Range/Units 11:15 11:15 11:15 WBC 13.9 H (3.8-10.6) k/uL RBC 3.42 L (4.30-5.90) m/uL Hgb 9.2 L (13.0-17.5) gm/dL Hct 29.6 L (39.0-53.0) % MCV 86.6 (80.0-100.0) fL MCH 26.9 (25.0-35.0) pg MCHC 31.0 (31.0-37.0) g/dL RDW 14.9 (11.5-15.5) % Plt Count 414 (150-450) k/uL Neutrophils % 84 % Lymphocytes % 8 % Monocytes % 6 % Eosinophils % 1 % Basophils % 0 % Neutrophils # 11.6 H (1.3-7.7) k/uL Lymphocytes # 1.1 (1.0-4.8) k/uL Monocytes # 0.9 (0-1.0) k/uL Eosinophils # 0.1 (0-0.7) k/uL Basophils # 0.1 (0-0.2) k/uL Hypochromasia Marked Poikilocytosis Slight PT (9.0-12.0) sec INR (<1.2) APTT (22.0-30.0) sec Sodium 139 (137-145) mmol/L Potassium 4.6 (3.5-5.1) mmol/L Chloride 98 (98-107) mmol/L Carbon Dioxide 34 H (22-30) mmol/L Anion Gap 7 mmol/L BUN 23 H (9-20) mg/dL Creatinine 0.89 (0.66-1.25) mg/dL Est GFR (CKD-EPI)AfAm >90 (>60 ml/min/1.73 sqM) Est GFR (CKD-EPI)NonAf >90 (>60 ml/min/1.73 sqM) Glucose 175 H (74-99) mg/dL Calcium 9.6 (8.4-10.2) mg/dL Magnesium 1.8 (1.6-2.3) mg/dL Total Bilirubin 0.9 (0.2-1.3) mg/dL AST 21 (17-59) U/L ALT 22 (21-72) U/L Alkaline Phosphatase 92 (38-126) U/L Troponin I (0.000-0.034) ng/mL NT-Pro-B Natriuret Pep 8440 pg/mL Total Protein 6.6 (6.3-8.2) g/dL Albumin 3.5 (3.5-5.0) g/dL 06/26/18 06/26/18 Range/Units 11:15 11:15 WBC (3.8-10.6) k/uL RBC (4.30-5.90) m/uL Hgb (13.0-17.5) gm/dL Hct (39.0-53.0) % MCV (80.0-100.0) fL MCH (25.0-35.0) pg MCHC (31.0-37.0) g/dL RDW (11.5-15.5) % Plt Count (150-450) k/uL Neutrophils % % Lymphocytes % % Monocytes % % Eosinophils % % Basophils % % Neutrophils # (1.3-7.7) k/uL Lymphocytes # (1.0-4.8) k/uL Monocytes # (0-1.0) k/uL Eosinophils # (0-0.7) k/uL Basophils # (0-0.2) k/uL Hypochromasia Poikilocytosis PT 11.6 (9.0-12.0) sec INR 1.1 (<1.2) APTT 33.3 H (22.0-30.0) sec Sodium (137-145) mmol/L Potassium (3.5-5.1) mmol/L Chloride (98-107) mmol/L Carbon Dioxide (22-30) mmol/L Anion Gap mmol/L BUN (9-20) mg/dL Creatinine (0.66-1.25) mg/dL Est GFR (CKD-EPI)AfAm (>60 ml/min/1.73 sqM) Est GFR (CKD-EPI)NonAf (>60 ml/min/1.73 sqM) Glucose (74-99) mg/dL Calcium (8.4-10.2) mg/dL Magnesium (1.6-2.3) mg/dL Total Bilirubin (0.2-1.3) mg/dL AST (17-59) U/L ALT (21-72) U/L Alkaline Phosphatase (38-126) U/L Troponin I 0.012 (0.000-0.034) ng/mL NT-Pro-B Natriuret Pep pg/mL Total Protein (6.3-8.2) g/dL Albumin (3.5-5.0) g/dL 06/26/18 12:00 EKG performed at 1047 shows normal sinus rhythm, normal EKG. Ventricular rate 77 bpm. Pulse 150 ms. She protestant 84. QT QTc is 42/454 ms. - Radiology Data Radiology results: report reviewed Correlate for CHF versus diffuse pneumonia. Disposition Clinical Impression: CHF exacerbation, Dyspnea Disposition: ADMITTED IP TO THIS HOSP Condition: Stable Is patient prescribed a controlled substance at d/c from ED?: No Referrals: Tr Naqvi DO [Primary Care Provider] - 1-2 days Time of Disposition: 12:56
[2018-06-26 11:42] LABS: Basophils # (A) 0.1 k/uL (0-0.2); Basophils % (A) 0 %; Eosinophils # (A) 0.1 k/uL (0-0.7); Eosinophils % (A) 1 %; HCT 29.6 % (39.0-53.0); HGB 9.2 gm/dL (13.0-17.5); Hypochromasia Marked; Lymphocytes # (A) 1.1 k/uL (1.0-4.8); Lymphocytes % (A) 8 %; MCH 26.9 pg (25.0-35.0); MCV 86.6 fL (80.0-100.0); Mean Platelet Volume 6.7; Monocytes # (A) 0.9 k/uL (0-1.0); Monocytes % (A) 6 %; Neutrophils # (A) 11.6 k/uL (1.3-7.7); Neutrophils % (A) 84 %; Platelet Count 414 k/uL (150-450); Poikilocytosis Slight; RBC 3.42 m/uL (4.30-5.90); RDW 14.9 % (11.5-15.5); WBC 13.9 k/uL (3.8-10.6)
[2018-06-26 11:50] LABS: ALT 22 U/L (21-72); AST 21 U/L (17-59); Albumin 3.5 g/dL (3.5-5.0); Alkaline Phosphatase 92 U/L (38-126); Anion Gap 7 mmol/L; Blood Urea Nitrogen 23 mg/dL (9-20); Calcium 9.6 mg/dL (8.4-10.2); Carbon Dioxide 34 mmol/L (22-30); Chloride 98 mmol/L (98-107); Glucose 175 mg/dL (74-99); INR 1.1 (<1.2); Magnesium 1.8 mg/dL (1.6-2.3); Partial Thromboplastin Time 33.3 sec (22.0-30.0); Potassium 4.6 mmol/L (3.5-5.1); Prothrombin Time 11.6 sec (9.0-12.0); Sodium 139 mmol/L (137-145); Total Bilirubin 0.9 mg/dL (0.2-1.3); Total Protein 6.6 g/dL (6.3-8.2)
--- NOTE | 2018-06-26 11:51 | XR ---
EXAMINATION TYPE: XR chest 2V DATE OF EXAM: 06/26/2018 COMPARISON: 21/05/2018 HISTORY: Shortness of breath FINDINGS: There are bilateral pleural effusions with cardiomegaly and bibasilar infiltrate. There is a diffuse interstitial pattern. Right-sided PICC line noted. Widening of the AC joint may been the basis of ch ronic reabsorption. IMPRESSION: 1. Correlate for CHF versus diffuse pneumonia.
[2018-06-26] MEDS ORDERED: LORazepam 2 MG/ML INJ IV STA (12:56)
[2018-06-26] MEDS ORDERED: oxyCODONE ER 10 MG TAB.ER.12H PO PRN (12:59)
[2018-06-26] MEDS ORDERED: FUROSEMIDE 10 MG/ML 4 ML VIAL IV SCH (13:00)
[2018-06-26] MEDS: NITROGLYCERIN OINT 1 INCH/GM PACKET TOPICAL SCH ×2 (13:14→17:08)
[2018-06-26 17:04] LABS: Glucose,Whole Blood 122 mg/dL (75-99)
[2018-06-26] MEDS: FUROSEMIDE 10 MG/ML 4 ML VIAL IV SCH ×2 (17:04→23:41)
[2018-06-26] MEDS: METOPROLOL TARTRATE 50 MG TAB PO SCH (17:07)
[2018-06-26] MEDS: oxyCODONE ER 20 MG TAB.ER.12H PO SCH (17:07)
[2018-06-26] MEDS: INSULIN ASPART (NovoLOG) 100 UNIT/ML VIAL SQ SCH ×2 (17:07→21:24)
[2018-06-26] MEDS ORDERED: NITROGLYCERIN SL TABS 0.4 MG TAB SUBLINGUAL PRN (17:08)
[2018-06-26] MEDS: RIVAROXABAN 15 MG TAB PO SCH (17:13)
[2018-06-26] MEDS: SIMETHICONE 80 MG CHEWABLE PO SCH ×2 (17:47→21:25)
[2018-06-26] MEDS: ALBUTEROL NEBULIZED 2.5 MG/3 ML INHALATION PRN (18:34)
[2018-06-26 20:46] LABS: Glucose,Whole Blood 159 mg/dL (75-99)
[2018-06-26] MEDS ORDERED: VANCOMYCIN 1,000 MG VIAL IVPB SCH (21:00)
[2018-06-26] MEDS: PREGABALIN 50 MG CAP PO SCH (21:24)
[2018-06-26] MEDS: INSULIN DETEMIR (LEVEMIR) 100 UNIT/ML SYR SQ SCH (21:24)
[2018-06-26] MEDS: DIVALPROEX ER 250 MG TAB.ER.24H PO SCH (21:24)
[2018-06-26] MEDS: LACTOBACILLUS ACIDOPH & BULGAR 1 EACH PACKET PO SCH (21:24)
[2018-06-26] MEDS: VANCOMYCIN 1,500 MG in SODIUM CHLORIDE 0.9% 250 ML IVPB SCH (21:25)
--- NOTE | 2018-06-26 22:52 | HP ---
HISTORY AND PHYSICAL DATE OF ADMISSION: 06/26/2018 PRESENTING COMPLAINT: Short of breath. HISTORY OF PRESENTING COMPLAINT: This is a 63-year-old patient of Dr. Naqvi who was here in the hospital about over 2 weeks ago. He was discharged on June 10. The patient was then treated for a left big toe distal phalanx acute osteomyelitis. Seen by Dr. Garcia from [place]. The patient's chronic stable medical conditions include coronary artery disease, COPD, diabetes mellitus type 2, GERD, hyperlipidemia, hypertension, peripheral artery disease, and chronic low back pain. The patient is currently at [facility]. The patient has been getting episodes of increasing shortness of breath along with anxiety and that is why he was brought in. The patient has some orthopnea. The patient is found to have elevated BNP. Chest x-ray was compatible with CHF, started on IV Lasix. Denies any fever or chills. Appetite is fair. Has been getting his IV antibiotics. On last admission patient did undergo a bone scan and MRI for which he is on antibiotics. REVIEW OF SYSTEMS: CONSTITUTIONAL: Tired. HEENT: None. RESPIRATORY: As above. CARDIOVASCULAR: As above. Some edema. GASTROINTESTINAL: None. GENITOURINARY: None. MUSCULOSKELETAL: Arthritic pain in the joints. DERMATOLOGICAL: Left big toe wound. HEMATOLOGICAL, LYMPHATIC: None. PSYCHIATRY: Anxiety. NEUROLOGICAL: None. PAST MEDICAL HISTORY: Left big toe distal phalanx acute osteomyelitis, currently being treated, coronary artery disease with stent to the circumflex, COPD, diabetes mellitus type 2, chronically on insulin; GERD, hyperlipidemia, hypertension, primary osteoarthritis, peripheral artery disease with stent, history of amputation of right big toe, sacral wound is healed, depression, anxiety, chronic low back pain from arthritis being followed by Dr. Cortez, congestive heart failure, stroke, been on the ventilator, oxygen 3-4 L, gout, in 2013 had a fall with a brain bleed, gastric ulcer. PAST SURGICAL HISTORY: Multiple cardiac caths with stents, left leg had 2 stents, 2nd right toe amputation, bunionectomy, bilateral rotator cuff surgery. SOCIAL HISTORY: Currently at [facility] for IV antibiotics. . Does use a cane and a walker. The patient is on disability. The patient smoked for 17 years, stopped in 1999, smoked 2 packs a day. Was drinking heavily until 1999. FAMILY HISTORY: Mother had brain cancer, also of a heart attack. HOME MEDICATIONS: 1. OxyContin 10 mg q.6h p.r.n. 2. Vancomycin ( ) mg IV piggyback q.12h. 3. Flomax 0.4 mg daily. 4. Simethicone 80 mg q.i.d. 5. Xarelto 50 mg with supper. 6. Lyrica 150 mg b.i.d. 7. Protonix 40 mg a day. 8. Nitrostat 0.4 sublingual q.5 p.r.n. 9. Lopressor 100 mg b.i.d. 10.Cozaar 25 mg a day. 11.Lactobacilli 3 tablets p.o. q.h.s. 12.Imdur ER 30 mg a day. 13.Insulin Lantus 75 units subcu b.i.d. 14.NovoLog a.c. t.i.d. 15.Lasix 40 mg b.i.d. 16.Iron 325 p.o. daily. 17.Depakote ER 250 mg p.o. q.h.s. 18.Cymbalta 60 mg p.o. daily. 19.Plavix 75 mg a day. 20.Celexa 20 mg p.o. daily. 21.Vitamin D3 1000 units p.o. daily. 22.Allopurinol 100 mg daily. 23.ProAir 1-2 puffs q.6h p.r.n. 24.Ventolin 2.5 nebulizer q.6h p.r.n. 25.Xanax 0.25 p.o. b.i.d. p.r.n. ALLERGIES: None. PHYSICAL EXAMINATION: VITAL SIGNS ON PRESENTATION: Temperature 98.3, pulse 74, respiratory rate 20, blood pressure 150/85, pulse ox 99% on 4 L. GENERAL APPEARANCE: Well-built, BMI 39.5, lying in bed, slightly short of breath, propped up. EYES: Pupils equal, conjunctivae normal. HEENT: External ears and nose normal. Oral cavity normal. NECK: JVD unable to assess. Mass not palpable. Respiratory effort increased. LUNGS: Decreased breath sounds. CARDIOVASCULAR: 1st and 2nd sounds normal. Some edema. ABDOMEN: Distended, soft. Liver and spleen not palpable. LYMPHATICS: No lymph node palpable in neck or axillae. PSYCHIATRY: Alert and oriented x3. Mood and affect anxious-appearing. NEUROLOGICAL: Pupils equal. Cranial nerves grossly intact. Power and sensation grossly intact. EXTREMITIES: Left big toe distal wound. INVESTIGATIONS: White count 13.9, hemoglobin 9.2, potassium 4.6, BUN 23, creatinine 0.89, troponin 0.012. ProBNP is 8440. EKG tracing personally reviewed by me shows normal sinus rhythm. Chest x-ray film personally reviewed by me shows pulmonary edema. The patient's 2D echocardiogram from earlier this year shows EF of 45-50%. ASSESSMENT: 1. Acute on chronic congestive heart failure exacerbation from systolic/diastolic dysfunction, ejection fraction 45-50%. 2. Left big toe distal phalanx acute osteomyelitis. The patient is supposed to be on 6 weeks of IV antibiotics since 06/10/2018. 3. Coronary artery disease, prior history of stent in circumflex. 4. Chronic obstructive pulmonary disease in an ex-smoker. 5. Diabetes mellitus type 2, chronically on insulin. 6. Gastroesophageal reflux disease. 7. Hyperlipidemia. 8. Essential hypertension. 9. Primary osteoarthritis. 10.Peripheral artery disease with stent. 11.History of amputation right big toe. 12.Sacral wound heal. 13.Depression and anxiety, not otherwise specified. 14.Chronic low back pain from arthritis, being followed by Dr. Cortez. PLAN: Home medications will be resumed. Patient is put on IV Lasix, IV antibiotics is to continue. Electrolytes will be followed closely. Care was discussed with the patient. Questions were answered. MMODL / IJN: [id number] /
[2018-06-26] MEDS: ALPRAZolam 0.25 MG TAB PO PRN (23:41)
[2018-06-27 02:33] LABS: Glucose,Whole Blood 45 mg/dL (75-99)
[2018-06-27 02:42] LABS: Glucose,Whole Blood 61 mg/dL (75-99)
[2018-06-27 03:02] LABS: Glucose,Whole Blood 94 mg/dL (75-99)
[2018-06-27] MEDS: oxyCODONE ER 20 MG TAB.ER.12H PO SCH ×2 (06:07→16:46)
[2018-06-27 06:53] LABS: Glucose,Whole Blood 112 mg/dL (75-99)
[2018-06-27] MEDS: ALBUTEROL NEBULIZED 2.5 MG/3 ML INHALATION PRN ×3 (07:43→20:56)
[2018-06-27] MEDS: INSULIN ASPART (NovoLOG) 100 UNIT/ML VIAL SQ SCH ×4 (08:10→21:13)
[2018-06-27] MEDS: VANCOMYCIN 1,500 MG in SODIUM CHLORIDE 0.9% 250 ML IVPB SCH ×2 (09:17→21:14)
[2018-06-27] MEDS: FERROUS SULFATE 325 MG TAB PO SCH (09:18)
[2018-06-27] MEDS: CITALOPRAM HYDROBROMIDE 20 MG TAB PO SCH (09:18)
[2018-06-27] MEDS: TAMSULOSIN 0.4 MG CAP.ER.24H PO SCH (09:18)
[2018-06-27] MEDS: CLOPIDOGREL 75 MG TAB PO SCH (09:18)
[2018-06-27] MEDS: PREGABALIN 50 MG CAP PO SCH ×2 (09:18→21:12)
[2018-06-27] MEDS: METOPROLOL TARTRATE 50 MG TAB PO SCH ×2 (09:18→15:39)
[2018-06-27] MEDS: ISOSORBIDE MONONITRATE ER 30 MG TAB.ER.24H PO SCH (09:18)
[2018-06-27] MEDS: LOSARTAN 25 MG TAB PO SCH (09:19)
[2018-06-27] MEDS: CHOLECALCIFEROL 1,000 UNIT TAB PO SCH (09:19)
[2018-06-27] MEDS: SIMETHICONE 80 MG CHEWABLE PO SCH ×4 (09:19→21:12)
[2018-06-27] MEDS: PANTOPRAZOLE 40 MG TABLET PO SCH (09:19)
[2018-06-27] MEDS: FUROSEMIDE 10 MG/ML 4 ML VIAL IV SCH ×2 (09:19→15:39)
[2018-06-27] MEDS: ALLOPURINOL 100 MG TAB PO SCH (09:19)
[2018-06-27] MEDS: DULoxetine HCL 60 MG CAPSULE.DR PO SCH (09:19)
[2018-06-27 11:22] VITALS: BMI 39.7
[2018-06-27 11:59] LABS: Glucose,Whole Blood 59 mg/dL (75-99)
[2018-06-27] MEDS: INSULIN DETEMIR (LEVEMIR) 100 UNIT/ML SYR SQ SCH ×2 (12:16→21:13)
[2018-06-27 12:53] LABS: Glucose,Whole Blood 64 mg/dL (75-99)
[2018-06-27] MEDS ORDERED: ASPIRIN 325 MG TAB PO SCH (12:58)
--- NOTE | 2018-06-27 13:19 | P.CRDCN ---
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 He follows in the office with Dr. Martinez. We have been asked to see him in consultation secondary to heart failure. He presented to the hospital with symptoms of increased shortness of breath, lower extremity edema and orthopnea that has been getting progressively worse over the previous 2 days. He has been started on Lasix IV 40 mg 3 times a day since admission. At the time of my exam he is seen and examined resting comfortably laying flat in bed. He states he is feeling much better and has been up urinating quite frequently. The swelling in his legs has gone down significantly and is almost nonexistent. He denies symptoms of chest discomfort , dizziness or palpitations. He continues to complain of mild shortness of breath with exertion although this greatly improved. EKG reveals sinus mechanism with no acute ST or T wave abnormalities noted. Chest x-ray reveals evidence of bilateral pleural effusions and bibasilar infiltrate with diffuse interstitial pattern. Laboratory data reviewed, WBC 13.9, hemoglobin 9.2, platelets 414, sodium 139, potassium 4.6, magnesium 1.8, creatinine 0.89, cardiac enzymes negative 1, NT proBNP 8440. Current home cardiac medications include Xarelto 15 mg daily, Lopressor 100 mg twice a day, losartan 25 mg daily, Imdur 30 mg daily, Lasix 40 mg twice a day, Plavix 75 mg daily. Most recent catheterization performed 08/2017 revealed diffuse disease in the LAD with 30-40% narrowing, circumflex artery with a lesion at the takeoff just proximal to the previously stented area and 80-90% in-stent restenosis with 99% stenosis distally and diffuse 40% disease of the RCA. At that time he underwent successful angioplasty of the circumflex artery with 2 stents placed. Most recent echocardiogram obtained eralier this month reveals mildly impaired LV systolic function with EF 45-50%, basal inferior and mid inferior hypokinesia. At the time of my exam: CONSTITUTIONAL: Denies fever. Denies chills. EYES: Denies blurred vision. Denies vision changes. Denies eye pain. EARS, NOSE, MOUTH & THROAT: Denies headache. Denies sore throat. Denies ear pain. CARDIOVASCULAR: Denies chest pain. Denies shortness of breath. Denies orthopnea. Denies PND. Denies palpitations. RESPIRATORY: Denies cough. GASTROINTESTINAL: Denies abdominal pain. Denies diarrhea. Denies constipation. Denies nausea. Denies vomiting. MUSCULOSKELETAL: Denies myalgias. INTEGUMENTARY: Denies pruitis. Denies rash. NEUROLOGIC: Denies numbness. Denies tingling. Denies weakness. PSYCHIATRIC: Denies anxiety. Denies depression. ENDOCRINE: Denies fatigue. Denies weight change. Denies polydipsia. Denies polyurina. GENITOURINARY: Denies burning, hematuria or urgency with micturation. HEMATOLOGIC: Denies history of anemia. Denies bleeding. Blood pressure 120/70 472 afebrile maintaining oxygen saturation on nasal cannula GENERAL: This is a 63-year-old male in no apparent distress at the time of my examination. Obese. HEENT: Head is atraumatic, normocephalic. Pupils are equal, round. Sclerae anicteric. Conjunctivae are clear. Mucous membranes of the mouth are moist. Neck is supple. There is no jugular venous distention. No carotid bruit is heard. LUNGS: Bibasilar rales, fainte expiratory wheezes, no rhonchi. No chest wall tenderness is noted on palpation or with deep breathing. HEART: Regular rate and rhythm without murmurs, rubs or gallops. S1 and S2 heard. ABDOMEN: Soft, nontender. Bowel sounds are heard. No organomegaly noted. Obese. EXTREMITIES: 1+ pitting edema. No calf tenderness noted. NEUROLOGIC: Patient is awake, alert and oriented x3. ASSESSMENT Acute diastolic heart failure, improved since admission on IV lasix Leukocytosis COPD Coronary artery disease s/p recent stent placement 08/2017 maintained on dual anti-platelet therapy Peripheral vascular disease Hypertension Dyslipidemia Diabetes mellitus Left toe osteomyelitis Obesity PLAN Continue current medical regimen. Repeat kidney function and electrolytes in the morning. Document intake and output along with daily weights. Further recommendations to follow based upon clinical course. Thank you kindly for this consultation. Nurse Practitioner note has been reviewed, I agree with a documented findings and plan of care. Patient was seen and examined. Past Medical History Past Medical History: Coronary Artery Disease (CAD), Heart Failure, COPD, CVA/ TIA, Diabetes Mellitus, Deep Vein Thrombosis (DVT), GERD/Reflux, Hyperlipidemia , Hypertension, Myocardial Infarction (IA), Osteoarthritis (OA), Pneumonia, Pulmonary Embolus (PE), Skin Disorder, Vascular Disorder Additional Past Medical History / Comment(s): Pt recently admitted to [facility] on 06/05/18 with L great toe distal phalanx acute osteomylitis-now at [facility] for ABX thru Picc line. Other Hx: IDDM type II, neuropathy bilateral feet/legs/arms and hands, recently treated at [facility] for L great toe ulcer, January 2018 pt states was in coma/vented at [facility] d/t R 2nd toe infection , healed sacral ulcer, PVD,PAD, pt states he has been wearing oxygen ATC 3-4 L/ NC, arthritis in low back and bilateral hips, chronic low back pain, gout, TIA x2, 2013 fall with brain bleed, gastric ulcer, psoriasis. Last Myocardial Infarction Date:: 08/2017 History of Any Multi-Drug Resistant Organisms: MRSA Date of last positivie culture/infection: 06/04/18 MDRO Source:: FOOT Past Surgical History: Heart Catheterization With Stent, Orthopedic Surgery, Tonsillectomy Additional Past Surgical History / Comment(s): Multiple cardiac caths and PCI with stents, L leg has 2 stents, L/R great toe debridements, 2nd R toe amp, bunionectomy-cannot recall laterality, bilateral rotator cuff surgery, colonoscopy, PICC line. Past Anesthesia/Blood Transfusion Reactions: Motion Sickness Additional Past Anesthesia/Blood Transfusion Reaction / Comment(s): pt stated has had a blood transfusion in past-no known reaction Date of Last Stent Placement:: 2016 Past Psychological History: Anxiety Additional Psychological History / Comment(s): Pt currently at [facility] for IV antibiotics. , normally lives in the family home with his . Pt uses a cane and walker to ambulate. He no longer drives, his spouse drives. Reformed smoker. Disabled. No international travel. No experience Smoking Status: Former smoker Past Alcohol Use History: None Reported Additional Past Alcohol Use History / Comment(s): QUIT SMOKING 1999, STARTED IN 1972, was smoking 2 ppd. in past was heavy drinker quit 1999 Past Drug Use History: None Reported - Past Family History Mother Family Medical History: Cancer, Coronary Artery Disease (CAD), Myocardial Infarction (IA) Additional Family Medical History / Comment(s): Mother had brain cancer. She at the age of 53 yrs from a IA Father Family Medical History: Coronary Artery Disease (CAD), Myocardial Infarction (IA ) Additional Family Medical History / Comment(s): Father of a IA at the age of 63 yrs. Medications and Allergies Home Medications Medication Instructions Recorded Confirmed Type Ferrous Sulfate [Iron (65 MG 325 mg PO DAILY 04/05/17 06/26/18 History Elemental)] Cholecalciferol [Vitamin D3] 1,000 unit PO DAILY 09/19/17 06/26/18 History Furosemide [Lasix] 40 mg PO BID 09/19/17 06/26/18 History Insulin Glargine,Hum.rec.anlog 35 unit SQ BID 09/19/17 06/26/18 History [Toujeo Solostar] Isosorbide Mononitrate ER [Imdur] 30 mg PO DAILY 09/19/17 06/26/18 History Losartan [Cozaar] 25 mg PO DAILY 09/19/17 06/26/18 History Albuterol Sulfate [Proair Hfa] 1 - 2 puff INHALATION RT-Q6H PRN 09/26/17 History DULoxetine HCL [Cymbalta] 60 mg PO DAILY 09/26/17 06/26/18 History Lactobacillus Acidophilus 3 tab PO HS 09/26/17 06/26/18 History [Acidophilus] Clopidogrel [Plavix] 75 mg PO DAILY #30 tab 09/28/17 06/26/18 Rx Rivaroxaban [Xarelto] 15 mg PO W/SUPPER #30 tab 09/28/17 06/26/18 Rx Allopurinol [Zyloprim] 100 mg PO DAILY #30 tablet 11/15/17 06/26/18 Rx Metoprolol Tartrate [Lopressor] 100 mg PO BID@0800,1600 02/14/18 06/26/18 History Tamsulosin HCl [Flomax] 0.4 mg PO DAILY 02/14/18 06/26/18 History Divalproex ER [Depakote ER] 250 mg PO HS #30 tab.er.24h 02/27/18 06/26/18 Rx INSULIN ASPART (NovoLOG) [NovoLOG See Protocol SQ AC-TID 06/02/18 06/26/18 History (formulary)] Nitroglycerin Sl Tabs [Nitrostat] 0.4 mg SUBLINGUAL Q5M PRN 06/02/18 06/26/18 History ALPRAZolam [Xanax] 0.25 mg PO BID PRN #6 tab 06/10/18 06/26/18 Rx Pregabalin [Lyrica] 150 mg PO BID #6 capsule 06/10/18 06/26/18 Rx Simethicone Chew [Mylicon Chew] 80 mg PO QID chew 06/10/18 06/26/18 Rx oxyCODONE HCL [OxyCONTIN] 40 mg PO Q12H #6 tab.er.12h 06/10/18 06/26/18 Rx Albuterol Nebulized [Ventolin 2.5 mg INHALATION RT-Q6H PRN 06/26/18 06/26/18 History Nebulized] Citalopram Hydrobromide [CeleXA] 20 mg PO DAILY@0800 06/26/18 06/26/18 History Pantoprazole Sodium [Protonix] 40 mg PO DAILY 06/26/18 06/26/18 History Vancomycin 1,500 mg IVPB Q12HR 06/26/18 06/26/18 History oxyCODONE HCL [OxyCONTIN] 10 mg PO Q6H PRN 06/26/18 06/26/18 History Allergies Allergy/AdvReac Type Severity Reaction Status Date / Time No Known Allergies Allergy Verified 06/26/18 11:46 Physical Exam Vitals: Vital Signs Temp Pulse Pulse Resp BP BP Pulse Ox 06/27/18 07:59 92 06/27/18 07:44 92 06/27/18 07:00 98.2 F 72 16 128/74 98 06/27/18 00:21 98.4 F 67 18 133/57 99 06/26/18 20:31 98.6 F 81 14 151/66 97 06/26/18 18:45 89 16 06/26/18 18:34 91 18 96 06/26/18 16:00 18 06/26/18 15:43 98.2 F 97 18 168/84 97 06/26/18 13:13 78 20 154/80 98 06/26/18 11:23 98.3 F 74 20 154/85 99 Intake and Output 06/26/18 06/27/18 06/27/18 22:59 06:59 14:59 Intake Total 250 Balance 250 Intake: Intake, IV Titration 250 Amount Vancomycin 1,500 mg In 250 Sodium Chloride 0.9% 250 ml @ 125 mls/hr IVPB Q12HR [facility] Rx#:[id number] Other: Voiding Method Toilet # Voids 1 2 # Bowel Movements 1 Weight 129.2 kg Results 06/26/18 11:15 06/26/18 11:15 Cardiac Enzymes 06/26/18 06/26/18 Range/Units 11:15 11:15 AST 21 (17-59) U/L Troponin I 0.012 (0.000-0.034) ng/mL Coagulation 06/26/18 Range/Units 11:15 PT 11.6 (9.0-12.0) sec APTT 33.3 H (22.0-30.0) sec CBC 06/26/18 Range/Units 11:15 WBC 13.9 H (3.8-10.6) k/uL RBC 3.42 L (4.30-5.90) m/uL Hgb 9.2 L (13.0-17.5) gm/dL Hct 29.6 L (39.0-53.0) % Plt Count 414 (150-450) k/uL Comprehensive Metabolic Panel 06/26/18 Range/Units 11:15 Sodium 139 (137-145) mmol/L Potassium 4.6 (3.5-5.1) mmol/L Chloride 98 (98-107) mmol/L Carbon Dioxide 34 H (22-30) mmol/L BUN 23 H (9-20) mg/dL Creatinine 0.89 (0.66-1.25) mg/dL Glucose 175 H (74-99) mg/dL Calcium 9.6 (8.4-10.2) mg/dL AST 21 (17-59) U/L ALT 22 (21-72) U/L Alkaline Phosphatase 92 (38-126) U/L Total Protein 6.6 (6.3-8.2) g/dL Albumin 3.5 (3.5-5.0) g/dL Current Medications Generic Name Dose Route Start Last Admin Trade Name Freq PRN Reason Stop Dose Admin Albuterol Sulfate 2.5 mg 06/26/18 12:59 06/27/18 07:43 Ventolin Nebulized INHALATION 2.5 mg RT-Q6H PRN Administration Shortness Of Breath Allopurinol 100 mg 06/27/18 09:00 06/27/18 09:19 Zyloprim PO 100 mg DAILY KARLA Administration Alprazolam 0.25 mg 06/26/18 12:59 06/26/18 23:41 Xanax PO 0.25 mg BID PRN Administration Anxiety Cholecalciferol 1,000 unit 06/27/18 09:00 06/27/18 09:19 Vitamin D3 PO 1,000 unit DAILY [facility] Administration Citalopram Hydrobromide 20 mg 06/27/18 08:00 06/27/18 09:18 Celexa PO 20 mg DAILY@0800 [facility] Administration Clopidogrel Bisulfate 75 mg 06/27/18 09:00 06/27/18 09:18 Plavix PO 75 mg DAILY [facility] Administration Divalproex Sodium 250 mg 06/26/18 21:00 06/26/18 21:24 Depakote Er PO 250 mg HS [facility] Administration Duloxetine HCl 60 mg 06/27/18 09:00 06/27/18 09:19 Cymbalta PO 60 mg DAILY [facility] Administration Ferrous Sulfate 325 mg 06/27/18 09:00 06/27/18 09:18 Feosol PO 325 mg DAILY [facility] Administration Furosemide 40 mg 06/26/18 16:00 06/27/18 09:19 Lasix IV 40 mg Q8H [facility] Administration Vancomycin HCl 1,500 mg/ 250 mls @ 125 mls/hr 06/26/18 21:00 06/27/18 09:17 Sodium Chloride IVPB 07/16/18 23:00 125 mls/hr Q12HR [facility] Administration Insulin Aspart 0 unit 06/26/18 17:30 06/27/18 08:10 [facility] SQ [facility] Insulin Detemir 35 unit 06/26/18 21:00 06/26/18 21:24 Levemir SQ 35 unit BID [facility] Administration Isosorbide Mononitrate 30 mg 06/27/18 09:00 06/27/18 09:18 Imdur PO 30 mg DAILY [facility] Administration Lactobacillus Acidoph/Bulgaricus 1 each 06/26/18 21:00 06/26/18 21:24 Lactinex PO 1 each HS [facility] Administration Losartan Potassium 25 mg 06/27/18 09:00 06/27/18 09:19 Cozaar PO 25 mg DAILY [facility] Administration Metoprolol Tartrate 100 mg 06/26/18 16:00 06/27/18 09:18 Lopressor PO 100 mg BID@0800,1600 [facility] Administration Miscellaneous Information 0 each 06/28/18 08:00 Vancomycin Trough Due MISCELLANE 06/28/18 08:01 DIRECTED ONE Nitroglycerin 0.4 mg 06/26/18 17:08 Nitrostat SUBLINGUAL Q5M PRN Chest Pain Oxycodone HCl 10 mg 06/26/18 12:59 Oxycontin 10mg E.R. PO Q6H PRN Pain Oxycodone HCl 40 mg 06/26/18 18:00 06/27/18 06:07 Oxycontin 20mg E.R. PO 40 mg Q12H [facility] Administration Pantoprazole Sodium 40 mg 06/27/18 07:30 06/27/18 09:19 Protonix PO 40 mg AC-BRKFST [facility] Administration Pregabalin 150 mg 06/26/18 21:00 06/27/18 09:18 Lyrica PO 150 mg BID [facility] Administration Rivaroxaban 15 mg 06/26/18 17:30 06/26/18 17:13 Xarelto PO 15 mg W/SUPPER [facility] Administration Simethicone 80 mg 06/26/18 18:00 06/27/18 09:19 Mylicon Chew PO 80 mg QID [facility] Administration Sodium Chloride 10 ml 06/26/18 21:00 06/27/18 10:06 Saline Flush IV Not Given BID [facility] Tamsulosin HCl 0.4 mg 06/27/18 09:00 06/27/18 09:18 Flomax PO 0.4 mg DAILY [facility] Administration Intake and Output 06/26/18 06/27/18 06/27/18 22:59 06:59 14:59 Intake Total 250 Balance 250 Intake: Intake, IV Titration 250 Amount Vancomycin 1,500 mg In 250 Sodium Chloride 0.9% 250 ml @ 125 mls/hr IVPB Q12HR [facility] Rx#:[id number] Other: Voiding Method Toilet # Voids 1 2 # Bowel Movements 1 Weight 129.2 kg 06/26/18 11:15 06/26/18 11:15
[2018-06-27 13:28] LABS: Glucose,Whole Blood 124 mg/dL (75-99)
[2018-06-27 16:33] LABS: Glucose,Whole Blood 200 mg/dL (75-99)
[2018-06-27] MEDS: RIVAROXABAN 15 MG TAB PO SCH (16:46)
--- NOTE | 2018-06-27 20:02 | PN ---
PROGRESS NOTE DATE OF SERVICE: 06/27/2018 PRESENTING COMPLAINT: Short of breath. INTERVAL HISTORY: Patient admitted with CHF exacerbation, on IV Lasix. Breathing is better. He did tolerate some diet. Less anxious. Sitting up on bed. No chest pain. REVIEW OF SYSTEMS: Done for constitutional, cardiovascular, GI, pulmonary; relevant findings as above. CURRENT MEDICATIONS: Reviewed. They include: 1. IV Lasix 40 mg. 2. IV vancomycin. PHYSICAL EXAMINATION: Temperature 97.9, pulse 71, respiration 16, blood pressure 115/67, pulse ox 100% on 4 L. GENERAL APPEARANCE: Sitting on bed, more restful. EYES: Pupils equal. Conjunctivae normal. NECK: JVD unable to assess. Mass not palpable. RESPIRATORY: Effort increased. LUNGS: Improved air entry. CARDIOVASCULAR: First and second sounds normal. Less edema. ABDOMEN: Soft, nontender. Liver and spleen not palpable. PSYCHIATRY: Alert and oriented x3. Mood and affect normal. EXTREMITIES: Left big toe wound on dressing. INVESTIGATIONS: Accu-Cheks 112, 59, 64. ASSESSMENT: 1. Acute on chronic congestive heart failure exacerbation from systolic/diastolic dysfunction, ejection fraction 45% to 50%, with clinical improvement. 2. Left big toe distal phalanx acute osteomyelitis, on 6 weeks of IV vancomycin since June 10. 3. Coronary artery disease with prior history of stent in circumflex. 4. Chronic obstructive pulmonary disease in an ex-smoker. 5. Diabetes mellitus, type 2, chronically on insulin, uncontrolled with hypoglycemia. 6. Gastroesophageal reflux disease. 7. Hyperlipidemia. 8. Essential hypertension. 9. Primary osteoarthritis. 10.Peripheral arterial disease with stent. 11.History of amputation of right big toe. 12.Sacral wound, healed. 13.Depression and anxiety not otherwise specified. 14.Chronic low back pain from arthritis, being followed by Dr. Cortez. PLAN: Keep patient on IV Lasix until tomorrow morning. Dose of Lantus is being cut back to 20 units subcutaneously b.i.d. Follow electrolytes tomorrow. MMODL / IJN: [id number] /
[2018-06-27 21:01] LABS: Glucose,Whole Blood 203 mg/dL (75-99)
[2018-06-27] MEDS: LACTOBACILLUS ACIDOPH & BULGAR 1 EACH PACKET PO SCH (21:12)
[2018-06-27] MEDS: DIVALPROEX ER 250 MG TAB.ER.24H PO SCH (21:12)
[2018-06-28] MEDS: FUROSEMIDE 10 MG/ML 4 ML VIAL IV SCH ×4 (00:34→23:59)
[2018-06-28 01:38] LABS: Glucose,Whole Blood 257 mg/dL (75-99)
[2018-06-28] MEDS: oxyCODONE ER 20 MG TAB.ER.12H PO SCH ×2 (05:34→18:31)
[2018-06-28 07:12] LABS: Glucose,Whole Blood 163 mg/dL (75-99)
[2018-06-28] MEDS: ALBUTEROL NEBULIZED 2.5 MG/3 ML INHALATION PRN ×3 (07:20→23:58)
[2018-06-28] MEDS ORDERED: VANCOMYCIN TROUGH DUE 1 EACH MISC MISCELLANE ONE (08:00)
[2018-06-28] MEDS: FERROUS SULFATE 325 MG TAB PO SCH (08:33)
[2018-06-28] MEDS: INSULIN DETEMIR (LEVEMIR) 100 UNIT/ML SYR SQ SCH ×2 (08:33→22:04)
[2018-06-28] MEDS: INSULIN ASPART (NovoLOG) 100 UNIT/ML VIAL SQ SCH ×4 (08:33→22:03)
[2018-06-28] MEDS: PREGABALIN 50 MG CAP PO SCH ×2 (08:34→22:04)
[2018-06-28] MEDS: PANTOPRAZOLE 40 MG TABLET PO SCH (08:34)
[2018-06-28] MEDS: TAMSULOSIN 0.4 MG CAP.ER.24H PO SCH (08:34)
[2018-06-28] MEDS: CITALOPRAM HYDROBROMIDE 20 MG TAB PO SCH (08:34)
[2018-06-28] MEDS: ISOSORBIDE MONONITRATE ER 30 MG TAB.ER.24H PO SCH (08:34)
[2018-06-28] MEDS: ALLOPURINOL 100 MG TAB PO SCH (08:34)
[2018-06-28] MEDS: LOSARTAN 25 MG TAB PO SCH (08:34)
[2018-06-28] MEDS: DULoxetine HCL 60 MG CAPSULE.DR PO SCH (08:34)
[2018-06-28] MEDS: CHOLECALCIFEROL 1,000 UNIT TAB PO SCH (08:34)
[2018-06-28] MEDS: CLOPIDOGREL 75 MG TAB PO SCH (08:35)
[2018-06-28] MEDS: SIMETHICONE 80 MG CHEWABLE PO SCH ×4 (08:36→22:04)
[2018-06-28] MEDS: METOPROLOL TARTRATE 50 MG TAB PO SCH ×2 (08:45→18:33)
[2018-06-28 08:54] LABS: Calcium 9.3 mg/dL (8.4-10.2); Potassium 4.5 mmol/L (3.5-5.1)
[2018-06-28 11:24] LABS: Glucose,Whole Blood 201 mg/dL (75-99)
[2018-06-28] MEDS: VANCOMYCIN 1,500 MG in SODIUM CHLORIDE 0.9% 250 ML IVPB SCH ×2 (12:16→22:05)
[2018-06-28 12:34] LABS: ABG Base Excess 17.5 mmol/L; ABG Oxygen Saturation 97.9 % (94-97); ABG PCO2 61 mmHg (35-45); ABG PH 7.45 (7.35-7.45); ABG PO2 102 mmHg (83-108); ABG TCO2 43 mmol/L (19-24)
[2018-06-28 12:41] LABS: ABG HCO3 42 mmol/L (21-25)
--- NOTE | 2018-06-28 14:02 | P.PN ---
Subjective This is a pleasant 63-year-old male past medical history significant for coronary artery disease s/p multiple angioplasties most recent 08/2017 maintained on dual anti-platelet therapy, peripheral vascular disease, hypertension, COPD, dyslipidemia, diabetes mellitus, chronic diastolic heart failure, history of PE/DVT in the past on group home anticoagulation and chronic osteomyelitis to left great toe. He follows in the office with Dr. Martinez. He is seen and examined sitting up in bed in no acute distress. However, he states earlier this morning while working with Physical Therapy he was having significant exertional shortness of breath and had to stop his session. He denies any chest pain, dizziness, nausea, vomiting or palpitations. His oxygen has been weaned down to 2 liters from 4 that he was requiring yesterday. His weight is down 4 kg from admission and he continues to urinate frequently. Blood pressure 166/80 heart rate 78 afebrile. Laboratory data reviewed, sodium 143, potassium 4.5, CO2 42, creatinine 1.04 and NT proBNP 3350. Currently maintained on Plavix 75 mg daily, Lasix 40 mg IV 3 times a day, Imdur 30 mg daily, losartan 25 mg daily, Lopressor 100 mg twice a day and xarelto 15 mg daily. GENERAL: This is a 63-year-old male in no apparent distress at the time of my examination. Obese. HEENT: Head is atraumatic, normocephalic. Pupils are equal, round. Sclerae anicteric. Conjunctivae are clear. Mucous membranes of the mouth are moist. Neck is supple. There is no jugular venous distention. No carotid bruit is heard. LUNGS: Bibasilar rales, no wheezes, no rhonchi. No chest wall tenderness is noted on palpation or with deep breathing. Diminished bilaterally. HEART: Regular rate and rhythm without murmurs, rubs or gallops. S1 and S2 heard. EXTREMITIES: Trace bilateral lower extremity pitting edema, improved from yesterday. No calf tenderness noted. ASSESSMENT Acute diastolic heart failure Leukocytosis COPD with CO2 retention that is worsening since admission Coronary artery disease s/p recent stent placement 08/2017 maintained on dual anti-platelet therapy Peripheral vascular disease Hypertension Dyslipidemia Diabetes mellitus Left toe osteomyelitis Obesity PLAN Continue current medical regimen. Repeat chest xray in the morning. Repeat kidney function and electrolytes in the morning. Check ABG. Expect he can be transitioned to oral diuretics tomorrow. Nurse Practitioner note has been reviewed, I agree with a documented findings and plan of care. Patient was seen and examined. Objective - Vital Signs Vital signs: Vital Signs Temp 99.0 F 06/28/18 07:00 Pulse 80 06/28/18 07:31 Resp 17 06/27/18 23:20 BP 166/80 06/28/18 07:00 Pulse Ox 99 06/28/18 07:00 Intake & Output 06/27/18 06/28/18 06/28/18 18:59 06:59 18:59 Intake Total 656 Balance 656 Weight 129.2 kg 125.6 kg Intake: Oral 656 Other: Voiding Method Toilet Toilet Urinal Urinal - Labs CBC & Chem 7: 06/26/18 11:15 06/28/18 07:46 Labs: Abnormal Lab Results - Last 24 Hours (Table) 06/27/18 06/27/18 06/27/18 Range/Units 11:48 12:23 13:15 Chloride (98-107) mmol/L Carbon Dioxide (22-30) mmol/L BUN (9-20) mg/dL Glucose (74-99) mg/dL POC Glucose (mg/dL) 59 L 64 L 124 H (75-99) mg/dL 06/27/18 06/27/18 06/28/18 Range/Units 16:21 21:00 01:36 Chloride (98-107) mmol/L Carbon Dioxide (22-30) mmol/L BUN (9-20) mg/dL Glucose (74-99) mg/dL POC Glucose (mg/dL) 200 H 203 H 257 H (75-99) mg/dL 06/28/18 06/28/18 Range/Units 07:09 07:46 Chloride 95 L (98-107) mmol/L Carbon Dioxide 42 H* (22-30) mmol/L BUN 25 H (9-20) mg/dL Glucose 149 H (74-99) mg/dL POC Glucose (mg/dL) 163 H (75-99) mg/dL
[2018-06-28 16:38] LABS: Glucose,Whole Blood 159 mg/dL (75-99)
[2018-06-28] MEDS: RIVAROXABAN 15 MG TAB PO SCH (18:31)
[2018-06-28 20:56] LABS: Glucose,Whole Blood 315 mg/dL (75-99)
[2018-06-28 21:43] VITALS: RESP 18
[2018-06-28] MEDS: LACTOBACILLUS ACIDOPH & BULGAR 1 EACH PACKET PO SCH (22:04)
[2018-06-28] MEDS: DIVALPROEX ER 250 MG TAB.ER.24H PO SCH (22:04)
[2018-06-29] MEDS: ALPRAZolam 0.25 MG TAB PO PRN ×2 (01:14→19:32)
[2018-06-29 02:36] LABS: Glucose,Whole Blood 159 mg/dL (75-99)
[2018-06-29] MEDS: oxyCODONE ER 20 MG TAB.ER.12H PO SCH ×2 (06:49→17:43)
[2018-06-29 07:18] LABS: Glucose,Whole Blood 74 mg/dL (75-99)
[2018-06-29] MEDS: INSULIN ASPART (NovoLOG) 100 UNIT/ML VIAL SQ SCH ×3 (08:04→17:45)
[2018-06-29] MEDS: VANCOMYCIN 1,500 MG in SODIUM CHLORIDE 0.9% 250 ML IVPB SCH (09:05)
[2018-06-29] MEDS: ALLOPURINOL 100 MG TAB PO SCH (09:06)
[2018-06-29] MEDS: CLOPIDOGREL 75 MG TAB PO SCH (09:06)
[2018-06-29] MEDS: CITALOPRAM HYDROBROMIDE 20 MG TAB PO SCH (09:06)
[2018-06-29] MEDS: TAMSULOSIN 0.4 MG CAP.ER.24H PO SCH (09:06)
[2018-06-29] MEDS: PREGABALIN 50 MG CAP PO SCH (09:06)
[2018-06-29] MEDS: PANTOPRAZOLE 40 MG TABLET PO SCH (09:06)
[2018-06-29] MEDS: LOSARTAN 25 MG TAB PO SCH (09:06)
[2018-06-29] MEDS: CHOLECALCIFEROL 1,000 UNIT TAB PO SCH (09:06)
[2018-06-29] MEDS: ISOSORBIDE MONONITRATE ER 30 MG TAB.ER.24H PO SCH (09:06)
[2018-06-29] MEDS: DULoxetine HCL 60 MG CAPSULE.DR PO SCH (09:06)
[2018-06-29] MEDS: SIMETHICONE 80 MG CHEWABLE PO SCH ×3 (09:06→17:45)
[2018-06-29] MEDS: METOPROLOL TARTRATE 50 MG TAB PO SCH ×2 (09:06→15:51)
[2018-06-29] MEDS: FERROUS SULFATE 325 MG TAB PO SCH (09:06)
[2018-06-29] MEDS: FUROSEMIDE 10 MG/ML 4 ML VIAL IV SCH ×2 (09:09→18:22)
--- NOTE | 2018-06-29 09:09 | XR ---
EXAMINATION TYPE: XR chest 2V DATE OF EXAM: 06/29/2018 COMPARISON: 06/26/2018 TECHNIQUE: PA and lateral views submitted. HISTORY: Shortness of breath FINDINGS: Diffuse interstitial pattern with more confluent density in the right upper lobe. Bilateral pleural e ffusions. No pneumothorax. Right-sided PICC line noted. Atherosclerotic change aorta. IMPRESSION: 1. Correlate for CHF otherwise consider diffuse pneumonia.
[2018-06-29] MEDS: INSULIN DETEMIR (LEVEMIR) 100 UNIT/ML SYR SQ SCH (09:17)
[2018-06-29 10:21] LABS: Anion Gap 6 mmol/L; Blood Urea Nitrogen 28 mg/dL (9-20); Calcium 9.2 mg/dL (8.4-10.2); Carbon Dioxide 37 mmol/L (22-30); Chloride 97 mmol/L (98-107); Glucose 134 mg/dL (74-99); Potassium 4.9 mmol/L (3.5-5.1); Sodium 140 mmol/L (137-145)
[2018-06-29] MEDS: ALBUTEROL NEBULIZED 2.5 MG/3 ML INHALATION PRN (11:29)
[2018-06-29 12:34] LABS: Glucose,Whole Blood 153 mg/dL (75-99)
--- NOTE | 2018-06-29 14:09 | P.PN ---
Subjective This is a pleasant 63-year-old male past medical history significant for coronary artery disease s/p multiple angioplasties most recent 08/2017 maintained on dual anti-platelet therapy, peripheral vascular disease, hypertension, COPD, dyslipidemia, diabetes mellitus, chronic diastolic heart failure, history of PE/DVT in the past on jail anticoagulation and chronic osteomyelitis to left great toe. He follows in the office with Dr. Martinez. He is seen and examined sitting up in the chair. He states he got up with physical therapy today and did some ambulating in the halls. His breathing was much better still with some dyspnea on exertion but not nearly as significant as yesterday. He denies any chest pain, dizziness or palpitations. Repeat chest x -ray this morning reveals ongoing evidence of congestive cardiac failure versus a possible pneumonia in the right lobe. He is currently maintained on Lasix 40 mg IV every 8 hours. Blood pressure 149/81 heart rate 68 afebrile maintaining oxygen saturation on nasal cannula. Laboratory data reviewed, sodium 140, potassium 4.9, CO2 37, creatinine 0.94. GENERAL: This is a 63-year-old male in no apparent distress at the time of my examination. Obese. HEENT: Head is atraumatic, normocephalic. Pupils are equal, round. Sclerae anicteric. Conjunctivae are clear. Mucous membranes of the mouth are moist. Neck is supple. There is no jugular venous distention. No carotid bruit is heard. LUNGS: Bibasilar rales, no wheezes, no rhonchi. No chest wall tenderness is noted on palpation or with deep breathing. Diminished bilaterally. HEART: Regular rate and rhythm without murmurs, rubs or gallops. S1 and S2 heard. EXTREMITIES: Trace bilateral lower extremity pitting edema. No calf tenderness noted. ASSESSMENT Acute diastolic heart failure Leukocytosis COPD with CO2 retention that is worsening since admission Coronary artery disease s/p recent stent placement 08/2017 maintained on dual anti-platelet therapy Peripheral vascular disease Hypertension Dyslipidemia Diabetes mellitus Left toe osteomyelitis Obesity PLAN Continue current medical regimen. Follow up with kidney function and electrolytes in the morning. Nurse Practitioner note has been reviewed, I agree with a documented findings and plan of care. Patient was seen and examined. Objective - Vital Signs Vital signs: Vital Signs Temp 98.2 F 06/29/18 07:00 Pulse 84 02/28/19 11:43 Resp 18 06/29/18 07:12 BP 149/81 06/29/18 07:00 Pulse Ox 100 06/29/18 07:00 Intake & Output 06/28/18 06/29/18 06/29/18 18:59 06:59 18:59 Intake Total 350 Balance 350 Weight 125.7 kg Intake: Oral 350 Other: Voiding Method Toilet Urinal # Voids 4 - Labs CBC & Chem 7: 06/26/18 11:15 06/29/18 09:30 Labs: Abnormal Lab Results - Last 24 Hours (Table) 06/28/18 06/28/18 06/29/18 Range/Units 16:36 20:55 02:35 Chloride (98-107) mmol/L Carbon Dioxide (22-30) mmol/L BUN (9-20) mg/dL Glucose (74-99) mg/dL POC Glucose (mg/dL) 159 H 315 H 159 H (75-99) mg/dL 06/29/18 06/29/18 06/29/18 Range/Units 07:09 09:30 12:32 Chloride 97 L (98-107) mmol/L Carbon Dioxide 37 H (22-30) mmol/L BUN 28 H (9-20) mg/dL Glucose 134 H (74-99) mg/dL POC Glucose (mg/dL) 74 L 153 H (75-99) mg/dL
--- NOTE | 2018-06-29 16:22 | DS ---
DISCHARGE SUMMARY DATE OF ADMISSION: 06/26/2018 DATE OF DISCHARGE: 06/29/2018 FINAL DIAGNOSES: 1. Acute on chronic congestive heart failure exacerbation from systolic/diastolic dysfunction, ejection fraction 45% to 50%. 2. Left big toe distal phalanx acute osteomyelitis, on 6 weeks of IV daptomycin since June 10. 3. Coronary artery disease with prior history of stent in circumflex. 4. Chronic obstructive pulmonary disease in an ex-smoker. 5. Diabetes mellitus, type 2, chronically on insulin, uncontrolled with hypoglycemia. 6. Gastroesophageal reflux disease. 7. Hyperlipidemia. 8. Essential hypertension. 9. Primary osteoarthritis. 10.Peripheral artery disease with stent. 11.History of amputation of right big toe. 12.Sacral wound, chronic, healed. 13.Depression and anxiety not otherwise specified. 14.Chronic low back pain from arthritis, being followed by Dr. Cortez. HOSPITAL COURSE: This patient presented with CHF exacerbation, was put on IV Lasix, to which he responded well. Doing much better by the time of discharge. Feeling much better. On examination, afebrile. Pulse 86, respiration 18, pulse ox 96% on 2 L. LUNGS: Fair air entry. INVESTIGATIONS: BUN 28, creatinine 0.94. DISCHARGE MEDICATIONS: 1. Iron 325 p.o. daily. 2. Vitamin D3 1000 units p.o. daily. 3. Imdur ER 30 mg daily. 4. Cozaar 25 mg p.o. daily. 5. ProAir 1-2 puffs q.6 p.r.n. 6. Cymbalta 60 mg p.o. daily. 7. Lactobacilli 3 tablets p.o. at bedtime. 8. Plavix 75 mg p.o. daily. 9. Xarelto 15 mg p.o. with supper. 10.Allopurinol 100 mg p.o. daily. 11.Lopressor 100 mg p.o. b.i.d. 12.Flomax 0.4 mg p.o. daily. 13.Depakote ER 250 mg p.o. at bedtime. 14.NovoLog per scale before meals t.i.d. 15.Nitrostat 0.4 sublingually q.5 p.r.n. 16.Mylicon 80 mg p.o. q.i.d. 17.Ventolin 2.5 nebulizer q.6 p.r.n. 18.Celexa 20 mg p.o. daily. 19.Protonix 40 mg p.o. daily. 20.Vancomycin 1500 mg IV piggyback q.12 for 20 more days. 21.OxyContin 10 mg p.o. q.6 p.r.n. 22.Xanax 0.25 p.o. b.i.d. p.r.n. 23.Lasix 60 mg p.o. b.i.d. 24.Insulin Lantus 20 units subcutaneously b.i.d. 25.Lyrica 150 mg p.o. b.i.d. 26.OxyContin 40 mg p.o. q.12. DISPOSITION: [facility]. Follow up up with Dr. Naqvi. Follow up with Dr. Garcia from Infectious Disease in 2 days. Labs: CBC, BMP and ESR weekly with results to be sent to Dr. Garcia. CONSULTATION: Dr. Chen from Cardiology. MMGOPIL / IJN: [id number] /
[2018-06-29 16:50] LABS: Glucose,Whole Blood 321 mg/dL (75-99)
[2018-06-29 16:57] VITALS: BP 126/74; TEMP 98.3
[2018-06-29 17:04] VITALS: PULSE 76
[2018-06-29] MEDS: RIVAROXABAN 15 MG TAB PO SCH (17:45)
--- NOTE | 2018-06-29 23:58 | PN ---
PROGRESS NOTE DATE OF SERVICE: June 28, 2018. PRESENTING COMPLAINT: Short of breath. INTERVAL HISTORY: This patient was seen by me yesterday. Admitted with CHF exacerbation on IV Lasix. Overall doing much better. Tolerating a diet, had a bowel movement. REVIEW OF SYSTEMS: Done for constitutional, cardiovascular, GI, pulmonary and relevant findings as above. CURRENT MEDICATIONS: Reviewed. PHYSICAL EXAMINATION: VITAL SIGNS: Temperature 98, pulse 75, respirations 16, blood pressure 130/55, pulse ox 97% on 2 L. GENERAL APPEARANCE: Propped up in bed, appearing better. EYES: Pupils equal. Conjunctivae normal. Neck JVD not raised. Mass not palpable. RESPIRATORY: Effort increased. LUNGS: Improved air entry cardiovascular 1st 2nd sounds normal. Decreased edema. ABDOMEN: Soft, nontender. Liver and spleen not palpable. PSYCHIATRY: Alert and oriented times three. Mood and affect normal. INVESTIGATIONS: Potassium 4.5, BUN 25, creatinine 1.04. ASSESSMENT: 1. Acute on chronic congestive heart failure exacerbation from systolic and diastolic dysfunction EF 45-50 percent improving. 2. Acute left big toe acute osteomyelitis on 6 weeks of IV antibiotics since June 10. 3. Coronary artery prior history of stent in circumflex. 4. Chronic obstructive pulmonary disease in an ex-smoker. 5. Diabetes mellitus type 2, chronically on insulin uncontrolled with hypoglycemia. 6. Gastroesophageal reflux disease. 7. Hyperlipidemia. 8. Essential hypertension. 9. Primary osteoarthritis. 10.Peripheral artery disease with stent. 11.History of amputation right big toe. 12.Sacral wound healed. 13.Depression/anxiety not otherwise specified. 14.Chronic low back pain from arthritis, being followed by Dr. Vasquez plan. Continue medication treatment plan. The patient should be able to be switched over to oral Lasix. Overall doing much better. Care was discussed with the patient. MMODL / IJN: [id number] /
== END 2018-06-29 20:15 | DRG 292 ==
LOC: EC 10:23 → 4SSUR 13:45
PROVIDERS: ADMIT Hospitalist; ATTEND Hospitalist
DX: I11.0 Hypertensive heart disease with heart failure (principal); E87.2 Acidosis; M86.172 Other acute osteomyelitis, left ankle and foot; I50.43 Acute on chronic combined systolic (congestive) and diastolic (congestive) heart failure; E11.42 Type 2 diabetes mellitus with diabetic polyneuropathy; E11.51 Type 2 diabetes mellitus with diabetic peripheral angiopathy without gangrene; E11.69 Type 2 diabetes mellitus with other specified complication; E11.621 Type 2 diabetes mellitus with foot ulcer; L97.529 Non-pressure chronic ulcer of other part of left foot with unspecified severity; E66.9 Obesity, unspecified; E78.5 Hyperlipidemia, unspecified; F32.9 Major depressive disorder, single episode, unspecified; F41.9 Anxiety disorder, unspecified; G89.29 Other chronic pain; I25.10 Atherosclerotic heart disease of native coronary artery without angina pectoris; I25.2 Old myocardial infarction; K21.9 Gastro-esophageal reflux disease without esophagitis; L40.9 Psoriasis, unspecified; M10.9 Gout, unspecified; M16.0 Bilateral primary osteoarthritis of hip; M47.9 Spondylosis, unspecified; J44.9 Chronic obstructive pulmonary disease, unspecified; Z79.01 Long term (current) use of anticoagulants; Z79.02 Long term (current) use of antithrombotics/antiplatelets; Z79.4 Long term (current) use of insulin; Z79.899 Other long term (current) drug therapy; Z79.2 Long term (current) use of antibiotics; Z79.891 Long term (current) use of opiate analgesic; Z86.711 Personal history of pulmonary embolism; Z86.718 Personal history of other venous thrombosis and embolism; Z86.73 Personal history of transient ischemic attack (TIA), and cerebral infarction without residual deficits; Z87.891 Personal history of nicotine dependence; Z89.411 Acquired absence of right great toe; Z68.38 Body mass index [BMI] 38.0-38.9, adult; Z87.01 Personal history of pneumonia (recurrent); Z87.11 Personal history of peptic ulcer disease; Z86.14 Personal history of Methicillin resistant Staphylococcus aureus infection; Z95.5 Presence of coronary angioplasty implant and graft; Z80.8 Family history of malignant neoplasm of other organs or systems; Z82.49 Family history of ischemic heart disease and other diseases of the circulatory system
CPT/HCPCS: 36415; 36600; 71046; 80048; 80053; 80202; 82805; 83735; 83880; 84484; 85025; 85610; 85730; 93005; 94640; 94760; 96374; 96375; 99285

== ENCOUNTER 2018-07-08 21:12 | Inpatient (IN) | payer MEDICARE ==
[2018-07-08] MEDS ORDERED: SODIUM CHLORIDE 0.9% 500 ML 500 ML IV ONE (21:56)
[2018-07-08 22:15] LABS: Glucose,Whole Blood 95 mg/dL (75-99)
--- NOTE | 2018-07-08 22:47 | ED ---
General Adult HPI - General Chief complaint: Altered Mental Status Stated complaint: Lethargy Time Seen by Provider: 07/08/18 21:41 Source: patient Mode of arrival: EMS Limitations: no limitations - History of Present Illness Initial comments: Dictation was produced using [employer] dictation software. please excuse any grammatical, word or spelling errors. Chief Complaint: 63-year-old male with multiple comorbidities presents via EMS from [facility] for lethargy and hypoxia. History of Present Illness: This 63-year-old male he is sent in from [facility] for lethargy, altered mental status and hypoxia. According to nurse received report from EMS patient woke this morning and was a little slow to respond. Patient has a baseline mental debility. Patient was also found to be hypoxic at the correction with 90% on 3 L nasal cannula. Patient is not on supplemental oxygen. Patient currently undergoing treatment with IV vancomycin for toe osteomyelitis. Patient has a PICC line to his right upper extremity. Patient has no complaints at this time. The ROS documented in this emergency department record has been reviewed and confirmed by me. Those systems with pertinent positive or negative responses have been documented in the HPI. All other systems are other negative and/or noncontributory. PHYSICAL EXAM: General Impression: Alert and oriented x3, not in acute distress HEENT: Normocephalic atraumatic, extra-ocular movements intact, pupils equal and reactive to light bilaterally, mucous membranes moist. Cardiovascular: Heart regular rate and rhythm, S1&S2 audible, no murmurs, rubs or gallops Chest: Lungs clear to auscultation bilaterally, no rhonchi, no wheeze, no rales Abdomen: Bowel sounds present, abdomen soft, non-tender, non-distended, no organomegaly, multiple pleural areas of ecchymoses over the anterior abdomen likely from heparin Musculoskeletal: Pulses present and equal in all extremities, no peripheral edema Motor: Power 5/5 bilaterally, no focal deficits noted Neurological: CN II-XII grossly intact, no focal motor or sensory deficits noted Skin: Well-healing wound to the left great toe Psych: Normal affect and mood ED course: 63-year-old male sent in from [facility] for lethargy, altered mental status and hypoxia. Vital signs upon arrival are within acceptable limits. Patient setting 100% on 3 L nasal cannula. We will wean oxygen as tolerated. Patient is asymptomatic at this time. PICC line site is unremarkable. Left toe wound appears well. EKGs benign. Laboratory evaluation obtained. Patient has mild leukocytosis is of 12.6. Patient is undergoing active treatment for osteomyelitis and is on antibiotics. CBC is otherwise grossly unremarkable. Coag panel is unremarkable. Venous blood gas shows pH of 7.28, CO2 of 73 with some metabolic compensation. Metabolic panel shows creatinine of 1.9. Rest metabolic panel is grossly unremarkable.CT brain is negative. Patient has bilateral worsening consolidation to the lungs. Patient is alert and vancomycin. Patient given dose of cefepime.. Patient gas suggests respiratory acidosis. Given that there is history of mental status changes this is likely secondary to metabolic encephalopathy secondary to hypercarbic respiratory failure. Patient placed on BiPAP. Patient be admitted to internal medicine. EKG interpretation: Ventricular rate 86, sinus bradycardia,. Interval 156, QS 84, QTc 443. No ND prolongation, no QTC prolongation, no ST or T-wave changes noted. Overall, this EKG is unremarkable - Related Data Home Medications Medication Instructions Recorded Confirmed Ferrous Sulfate [Iron (65 MG 325 mg PO DAILY 04/05/17 06/26/18 Elemental)] Cholecalciferol [Vitamin D3] 1,000 unit PO DAILY 09/19/17 06/26/18 Isosorbide Mononitrate ER [Imdur] 30 mg PO DAILY 09/19/17 06/26/18 Losartan [Cozaar] 25 mg PO DAILY 09/19/17 06/26/18 Albuterol Sulfate [Proair Hfa] 1 - 2 puff INHALATION RT-Q6H PRN 09/26/17 06/26/18 DULoxetine HCL [Cymbalta] 60 mg PO DAILY 09/26/17 06/26/18 Lactobacillus Acidophilus 3 tab PO HS 09/26/17 06/26/18 [Acidophilus] Metoprolol Tartrate [Lopressor] 100 mg PO BID@0800,1600 02/14/18 06/26/18 Tamsulosin HCl [Flomax] 0.4 mg PO DAILY 02/14/18 06/26/18 INSULIN ASPART (NovoLOG) [NovoLOG See Protocol SQ AC-TID 06/02/18 06/26/18 (formulary)] Nitroglycerin Sl Tabs [Nitrostat] 0.4 mg SUBLINGUAL Q5M PRN 06/02/18 06/26/18 Albuterol Nebulized [Ventolin 2.5 mg INHALATION RT-Q6H PRN 06/26/18 06/26/18 Nebulized] Citalopram Hydrobromide [CeleXA] 20 mg PO DAILY@0800 06/26/18 06/26/18 Pantoprazole Sodium [Protonix] 40 mg PO DAILY 06/26/18 06/26/18 Vancomycin 1,500 mg IVPB Q12HR 06/26/18 06/26/18 oxyCODONE HCL [OxyCONTIN] 10 mg PO Q6H PRN 06/26/18 06/26/18 Previous Rx's Medication Instructions Recorded Clopidogrel [Plavix] 75 mg PO DAILY #30 tab 09/28/17 Rivaroxaban [Xarelto] 15 mg PO W/SUPPER #30 tab 09/28/17 Allopurinol [Zyloprim] 100 mg PO DAILY #30 tablet 11/15/17 Divalproex ER [Depakote ER] 250 mg PO HS #30 tab.er.24h 02/27/18 Simethicone Chew [Mylicon Chew] 80 mg PO QID chew 06/10/18 ALPRAZolam [Xanax] 0.25 mg PO BID PRN #6 tab 06/29/18 Furosemide [Lasix] 60 mg PO BID #0 06/29/18 Insulin Glargine,Hum.rec.anlog 20 unit SQ BID #0 06/29/18 [Toujeo Solostar] Pregabalin [Lyrica] 150 mg PO BID #6 capsule 06/29/18 oxyCODONE HCL [OxyCONTIN] 40 mg PO Q12H #6 tab.er.12h 06/29/18 Allergies Allergy/AdvReac Type Severity Reaction Status Date / Time No Known Allergies Allergy Verified 06/26/18 11:46 Review of Systems ROS Statement: Those systems with pertinent positive or pertinent negative responses have been documented in the HPI. ROS Other: All systems not noted in ROS Statement are negative. Past Medical History Past Medical History: Coronary Artery Disease (CAD), Heart Failure, COPD, CVA/TIA, Diabetes Mellitus, Deep Vein Thrombosis (DVT), GERD/Reflux, Hyperlipidemia, Hypertension, Myocardial Infarction ([place]), Osteoarthritis (OA), Pneumonia, Pulmonary Embolus (PE), Skin Disorder, Vascular Disorder Additional Past Medical History / Comment(s): Pt recently admitted to [facility] on 06/05/18 with L great toe distal phalanx acute osteomylitis-now at [facility] for ABX thru Picc line. Other Hx: IDDM type II, neuropathy bilateral feet/legs/arms and hands, recently treated at [facility] for L great toe ulcer, January 2018 pt states was in coma/vented at [facility] d/t R 2nd toe infection, healed sacral ulcer, PVD,PAD, pt states he has been wearing oxygen ATC 3-4 L/NC, arthritis in low back and bilateral hips, chronic low back pain, gout, TIA x2, 2013 fall with brain bleed, gastric ulcer, psoriasis. Last Myocardial Infarction Date:: 08/2017 History of Any Multi-Drug Resistant Organisms: MRSA Date of last positivie culture/infection: 06/04/18 MDRO Source:: FOOT Past Surgical History: Heart Catheterization With Stent, Orthopedic Surgery, Tonsillectomy Additional Past Surgical History / Comment(s): Multiple cardiac caths and PCI with stents, L leg has 2 stents, L/R great toe debridements, 2nd R toe amp, bunionectomy-cannot recall laterality, bilateral rotator cuff surgery, colonoscopy, PICC line. Past Anesthesia/Blood Transfusion Reactions: Motion Sickness Additional Past Anesthesia/Blood Transfusion Reaction / Comment(s): pt stated has had a blood transfusion in past-no known reaction Date of Last Stent Placement:: 2016 Past Psychological History: Anxiety Smoking Status: Former smoker Past Alcohol Use History: None Reported Past Drug Use History: None Reported - Past Family History Mother Family Medical History: Cancer, Coronary Artery Disease (CAD), Myocardial Infarction ([place]) Additional Family Medical History / Comment(s): Mother had brain cancer. She at the age of 53 yrs from a [place] Father Family Medical History: Coronary Artery Disease (CAD), Myocardial Infarction ([place]) Additional Family Medical History / Comment(s): Father of a [place] at the age of 63 yrs. General Exam Limitations: no limitations Course Vital Signs 07/08/18 07/08/18 07/08/18 21:20 21:21 21:30 Temperature 97.4 F L Pulse Rate 62 62 Respiratory 12 7 L Rate Blood Pressure 140/76 140/76 O2 Sat by Pulse 97 100 100 Oximetry 07/08/18 07/08/18 07/08/18 21:40 21:50 22:00 Temperature Pulse Rate 53 L 57 L 56 L Respiratory 10 L 8 L 7 L Rate Blood Pressure 113/81 126/99 126/99 O2 Sat by Pulse 98 98 98 Oximetry 07/08/18 07/08/18 07/08/18 22:10 22:20 22:30 Temperature Pulse Rate 58 L 59 L 60 Respiratory 7 L 15 9 L Rate Blood Pressure 156/77 157/80 157/80 O2 Sat by Pulse 99 98 99 Oximetry 07/08/18 07/08/18 07/08/18 22:40 22:50 23:00 Temperature Pulse Rate 60 59 L 58 L Respiratory 7 L 7 L 7 L Rate Blood Pressure 170/63 153/89 153/89 O2 Sat by Pulse 99 99 99 Oximetry 07/08/18 07/08/18 07/08/18 23:10 23:20 23:30 Temperature Pulse Rate 57 L 56 L 58 L Respiratory 7 L 7 L 7 L Rate Blood Pressure 164/81 160/74 160/74 O2 Sat by Pulse 100 99 100 Oximetry 07/08/18 07/08/18 07/08/18 23:34 23:40 23:50 Temperature Pulse Rate 58 L 59 L 59 L Respiratory 6 L 8 L 8 L Rate Blood Pressure 154/78 154/78 153/89 O2 Sat by Pulse 99 99 98 Oximetry 07/09/18 07/09/18 07/09/18 00:00 00:10 00:20 Temperature Pulse Rate 64 80 Respiratory 12 35 H Rate Blood Pressure 153/89 177/99 O2 Sat by Pulse Oximetry 07/09/18 07/09/18 00:30 00:40 Temperature Pulse Rate 61 63 Respiratory 9 L 14 Rate Blood Pressure 177/99 150/113 O2 Sat by Pulse Oximetry Medical Decision Making - Lab Data Result diagrams: 07/08/18 22:45 07/08/18 22:45 Lab Results 07/08/18 07/08/18 07/08/18 Range/Units 01:30 22:14 22:45 WBC 12.6 H (3.8-10.6) k/uL RBC 3.21 L (4.30-5.90) m/uL Hgb 8.3 L (13.0-17.5) gm/dL Hct 28.2 L (39.0-53.0) % MCV 87.7 (80.0-100.0) fL MCH 26.0 (25.0-35.0) pg MCHC 29.7 L (31.0-37.0) g/dL RDW 16.0 H (11.5-15.5) % Plt Count 323 (150-450) k/uL Neutrophils % 78 % Lymphocytes % 10 % Monocytes % 7 % Eosinophils % 3 % Basophils % 0 % Neutrophils # 9.8 H (1.3-7.7) k/uL Lymphocytes # 1.3 (1.0-4.8) k/uL Monocytes # 0.9 (0-1.0) k/uL Eosinophils # 0.4 (0-0.7) k/uL Basophils # 0.0 (0-0.2) k/uL Hypochromasia Marked Poikilocytosis Slight PT (9.0-12.0) sec INR (<1.2) APTT (22.0-30.0) sec VBG pH (7.31-7.41) VBG pCO2 (37-51) mmHg VBG HCO3 (24-28) mmol/L Sodium (137-145) mmol/L Potassium (3.5-5.1) mmol/L Chloride (98-107) mmol/L Carbon Dioxide (22-30) mmol/L Anion Gap mmol/L BUN (9-20) mg/dL Creatinine (0.66-1.25) mg/dL Est GFR (CKD-EPI)AfAm (>60 ml/min/1.73 sqM) Est GFR (CKD-EPI)NonAf (>60 ml/min/1.73 sqM) Glucose (74-99) mg/dL POC Glucose (mg/dL) 95 (75-99) mg/dL POC Glu Airveyor Operator ID [email or web address]lle Calcium (8.4-10.2) mg/dL Total Bilirubin (0.2-1.3) mg/dL AST (17-59) U/L ALT (21-72) U/L Alkaline Phosphatase (38-126) U/L Creatine Kinase (55-170) U/L Troponin I (0.000-0.034) ng/mL Total Protein (6.3-8.2) g/dL Albumin (3.5-5.0) g/dL Urine Color Urine Appearance (Clear) Urine pH (5.0-8.0) Ur Specific [place] (1.001-1.035) Urine Protein (Negative) Urine Glucose (UA) (Negative) Urine Ketones (Negative) Urine Blood (Negative) Urine Nitrite (Negative) Urine Bilirubin (Negative) Urine Urobilinogen (<2.0) mg/dL Ur Leukocyte Esterase (Negative) Urine Opiates Screen Not Detected (NotDetected) Ur Oxycodone Screen Not Detected (NotDetected) Urine Methadone Screen Not Detected (NotDetected) Ur Propoxyphene Screen Not Detected (NotDetected) Ur Barbiturates Screen Not Detected (NotDetected) U Tricyclic Antidepress Not Detected (NotDetected) Ur Phencyclidine Scrn Not Detected (NotDetected) Ur Amphetamines Screen Not Detected (NotDetected) U Methamphetamines Scrn Not Detected (NotDetected) U Benzodiazepines Scrn Not Detected (NotDetected) Urine Cocaine Screen Not Detected (NotDetected) U Marijuana (THC) Screen Not Detected (NotDetected) 07/08/18 07/08/18 07/08/18 Range/Units 22:45 22:45 22:45 WBC (3.8-10.6) k/uL RBC (4.30-5.90) m/uL Hgb (13.0-17.5) gm/dL Hct (39.0-53.0) % MCV (80.0-100.0) fL MCH (25.0-35.0) pg MCHC (31.0-37.0) g/dL RDW (11.5-15.5) % Plt Count (150-450) k/uL Neutrophils % % Lymphocytes % % Monocytes % % Eosinophils % % Basophils % % Neutrophils # (1.3-7.7) k/uL Lymphocytes # (1.0-4.8) k/uL Monocytes # (0-1.0) k/uL Eosinophils # (0-0.7) k/uL Basophils # (0-0.2) k/uL Hypochromasia Poikilocytosis PT 12.8 H (9.0-12.0) sec INR 1.2 H (<1.2) APTT 33.1 H (22.0-30.0) sec VBG pH (7.31-7.41) VBG pCO2 (37-51) mmHg VBG HCO3 (24-28) mmol/L Sodium 141 (137-145) mmol/L Potassium 5.0 (3.5-5.1) mmol/L Chloride 99 (98-107) mmol/L Carbon Dioxide 35 H (22-30) mmol/L Anion Gap 7 mmol/L BUN 44 H (9-20) mg/dL Creatinine 1.90 H (0.66-1.25) mg/dL Est GFR (CKD-EPI)AfAm 42 (>60 ml/min/1.73 sqM) Est GFR (CKD-EPI)NonAf 37 (>60 ml/min/1.73 sqM) Glucose 90 (74-99) mg/dL POC Glucose (mg/dL) (75-99) mg/dL POC Glu Airveyor Operator ID Calcium 8.7 (8.4-10.2) mg/dL Total Bilirubin 0.6 (0.2-1.3) mg/dL AST 20 (17-59) U/L ALT 40 (21-72) U/L Alkaline Phosphatase 113 (38-126) U/L Creatine Kinase 29 L (55-170) U/L Troponin I <0.012 (0.000-0.034) ng/mL Total Protein 6.4 (6.3-8.2) g/dL Albumin 3.2 L (3.5-5.0) g/dL Urine Color Urine Appearance (Clear) Urine pH (5.0-8.0) Ur Specific [place] (1.001-1.035) Urine Protein (Negative) Urine Glucose (UA) (Negative) Urine Ketones (Negative) Urine Blood (Negative) Urine Nitrite (Negative) Urine Bilirubin (Negative) Urine Urobilinogen (<2.0) mg/dL Ur Leukocyte Esterase (Negative) Urine Opiates Screen (NotDetected) Ur Oxycodone Screen (NotDetected) Urine Methadone Screen (NotDetected) Ur Propoxyphene Screen (NotDetected) Ur Barbiturates Screen (NotDetected) U Tricyclic Antidepress (NotDetected) Ur Phencyclidine Scrn (NotDetected) Ur Amphetamines Screen (NotDetected) U Methamphetamines Scrn (NotDetected) U Benzodiazepines Scrn (NotDetected) Urine Cocaine Screen (NotDetected) U Marijuana (THC) Screen (NotDetected) 07/08/18 07/09/18 Range/Units 23:15 01:30 WBC (3.8-10.6) k/uL RBC (4.30-5.90) m/uL Hgb (13.0-17.5) gm/dL Hct (39.0-53.0) % MCV (80.0-100.0) fL MCH (25.0-35.0) pg MCHC (31.0-37.0) g/dL RDW (11.5-15.5) % Plt Count (150-450) k/uL Neutrophils % % Lymphocytes % % Monocytes % % Eosinophils % % Basophils % % Neutrophils # (1.3-7.7) k/uL Lymphocytes # (1.0-4.8) k/uL Monocytes # (0-1.0) k/uL Eosinophils # (0-0.7) k/uL Basophils # (0-0.2) k/uL Hypochromasia Poikilocytosis PT (9.0-12.0) sec INR (<1.2) APTT (22.0-30.0) sec VBG pH 7.28 L (7.31-7.41) VBG pCO2 73 H* (37-51) mmHg VBG HCO3 33 H (24-28) mmol/L Sodium (137-145) mmol/L Potassium (3.5-5.1) mmol/L Chloride (98-107) mmol/L Carbon Dioxide (22-30) mmol/L Anion Gap mmol/L BUN (9-20) mg/dL Creatinine (0.66-1.25) mg/dL Est GFR (CKD-EPI)AfAm (>60 ml/min/1.73 sqM) Est GFR (CKD-EPI)NonAf (>60 ml/min/1.73 sqM) Glucose (74-99) mg/dL POC Glucose (mg/dL) (75-99) mg/dL POC Glu Airveyor Operator ID Calcium (8.4-10.2) mg/dL Total Bilirubin (0.2-1.3) mg/dL AST (17-59) U/L ALT (21-72) U/L Alkaline Phosphatase (38-126) U/L Creatine Kinase (55-170) U/L Troponin I (0.000-0.034) ng/mL Total Protein (6.3-8.2) g/dL Albumin (3.5-5.0) g/dL Urine Color Yellow Urine Appearance Clear (Clear) Urine pH 5.5 (5.0-8.0) Ur Specific [place] 1.009 (1.001-1.035) Urine Protein Negative (Negative) Urine Glucose (UA) Negative (Negative) Urine Ketones Negative (Negative) Urine Blood Negative (Negative) Urine Nitrite Negative (Negative) Urine Bilirubin Negative (Negative) Urine Urobilinogen <2.0 (<2.0) mg/dL Ur Leukocyte Esterase Negative (Negative) Urine Opiates Screen (NotDetected) Ur Oxycodone Screen (NotDetected) Urine Methadone Screen (NotDetected) Ur Propoxyphene Screen (NotDetected) Ur Barbiturates Screen (NotDetected) U Tricyclic Antidepress (NotDetected) Ur Phencyclidine Scrn (NotDetected) Ur Amphetamines Screen (NotDetected) U Methamphetamines Scrn (NotDetected) U Benzodiazepines Scrn (NotDetected) Urine Cocaine Screen (NotDetected) U Marijuana (THC) Screen (NotDetected) Disposition Clinical Impression: Hypercapnic respiratory failure, Metabolic encephalopathy Disposition: ADMITTED IP TO THIS [facility] Condition: Critical Referrals: Tr Naqvi DO [Primary Care Provider] - 1-2 days Decision Time: 03:01
[2018-07-08 22:57] LABS: Basophils % (A) 0 %; Eosinophils # (A) 0.4 k/uL (0-0.7); Eosinophils % (A) 3 %; HCT 28.2 % (39.0-53.0); HGB 8.3 gm/dL (13.0-17.5); Hypochromasia Marked; Lymphocytes # (A) 1.3 k/uL (1.0-4.8); Lymphocytes % (A) 10 %; MCHC 29.7 g/dL (31.0-37.0); MCV 87.7 fL (80.0-100.0); Mean Platelet Volume 7.9; Monocytes # (A) 0.9 k/uL (0-1.0); Monocytes % (A) 7 %; Neutrophils # (A) 9.8 k/uL (1.3-7.7); Neutrophils % (A) 78 %; Platelet Count 323 k/uL (150-450); Poikilocytosis Slight; RBC 3.21 m/uL (4.30-5.90); WBC 12.6 k/uL (3.8-10.6)
[2018-07-08 23:07] LABS: Albumin 3.2 g/dL (3.5-5.0); Calcium 8.7 mg/dL (8.4-10.2); INR 1.2 (<1.2); Partial Thromboplastin Time 33.1 sec (22.0-30.0); Prothrombin Time 12.8 sec (9.0-12.0); Total Bilirubin 0.6 mg/dL (0.2-1.3); Total Protein 6.4 g/dL (6.3-8.2)
[2018-07-08 23:25] LABS: VBG PH 7.28 (7.31-7.41)
--- NOTE | 2018-07-09 00:27 | XR ---
EXAM: XR Chest, 2 Views CLINICAL HISTORY: altered mental status TECHNIQUE: Frontal and lateral views of the chest. COMPARISON: 06/29/18 FINDINGS: Worsening consolidation bilaterally compared to prior study No change in cardiac size. No change in right-sided PICC line. IMPRESSION: Worsening consolidation noted bilaterally
[2018-07-09] MEDS ORDERED: CEFEPIME 2 GM in SODIUM CHLORIDE 0.9% 100 ML IVPB ONE (01:00)
--- NOTE | 2018-07-09 01:34 | CT ---
EXAM: CT Head Without Intravenous Contrast CLINICAL HISTORY: Pain TECHNIQUE: Axial computed tomography images of the head/brain without intravenous contrast. CTDI is 50.7 mGy and DLP is 1162 mGy-cm. This CT exam was performed using one or more of the following dose reduction techniques: automated exposure control, adjustment of the mA and/or kV according to patient size, and/or use of iterative reconstruction technique. COMPARISON: 08/06/16 FINDINGS: No intracranial hemorrhage, abnormal intra- or extra-axial collections or parenchymal lesions are seen. There are mild involutional changes with prominence of the sulci, basal cisterns and ventricles. Scattered white matter hypoattenuations are present, likely from small vessel disease. The mon-white differentiation is preserved. No evidence of mass effect, midline shift, or edema. The osseous structures are unremarkable. The visualized portions of the paranasal sinuses are clear. IMPRESSION: 1. No acute intracranial process. 2. Involutional changes with small vessel disease. Stable compared to prior study
[2018-07-09 01:46] LABS: Appearance,Urine Clear (Clear); Bilirubin,Urine Negative (Negative); Blood,Urine Negative (Negative); Color,Urine Yellow; Glucose,Urine (UA) Negative (Negative); Ketones,Urine Negative (Negative); Leukocyte Esterase,Urine Negative (Negative); Nitrite,Urine Negative (Negative); PH, Urine 5.5 (5.0-8.0); Protein,Urine Negative (Negative); Specific Gravity,Urine 1.009 (1.001-1.035); Urobilinogen,Urine <2.0 mg/dL (<2.0)
[2018-07-09 01:56] LABS: Amphetamine Screen,Urine Not Detected (NotDetected); Barbiturate Screen,Urine Not Detected (NotDetected); Benzodiazepines Screen,Urine Not Detected (NotDetected); Cocaine Screen,Urine Not Detected (NotDetected); Methadone Screen, Urine Not Detected (NotDetected); Opiate Screen,Urine Not Detected (NotDetected); Oxycodone Screen, Urine Not Detected (NotDetected); Phencyclidine Screen,Urine Not Detected (NotDetected); Tricyclic Antidepressant,Urine Not Detected (NotDetected); Urn Cannabinoid Scrn Not Detected (NotDetected)
[2018-07-09] MEDS ORDERED: NALOXONE 0.4 MG/ML 1 ML VIAL IV PRN (03:01)
[2018-07-09] MEDS ORDERED: ALBUTEROL NEBULIZED 2.5 MG/3 ML INHALATION PRN (03:04)
[2018-07-09] MEDS ORDERED: LORazepam 2 MG/ML INJ IV STA ×2 (03:08→07:38)
[2018-07-09] MEDS: SODIUM CHLORIDE 0.9% 1,000 ML IV SCH (05:08)
[2018-07-09 07:21] LABS: Glucose,Whole Blood 127 mg/dL (75-99)
[2018-07-09 07:26] LABS: ABG Base Excess 7.1 mmol/L; ABG HCO3 31 mmol/L (21-25); ABG Oxygen Saturation 92.6 % (94-97); ABG PCO2 47 mmHg (35-45); ABG PH 7.43 (7.35-7.45); ABG TCO2 33 mmol/L (19-24)
[2018-07-09 07:30] LABS: ABG PO2 58 mmHg (83-108)
[2018-07-09] MEDS ORDERED: FUROSEMIDE 40 MG TAB PO SCH (09:00)
--- NOTE | 2018-07-09 09:13 | XR ---
EXAMINATION TYPE: XR chest 1V DATE OF EXAM: 07/09/2018 COMPARISON: Prior chest x-ray same dated earlier time HISTORY: Shortness of breath, hypercapnic with consolidation TECHNIQUE: Single frontal view of the chest is obtained. FINDINGS: Interstitium is increased. Heart size is enlarged. There is some improvement in aeration a s compared to prior exam. No pneumothorax or pleural effusion evident. IMPRESSION: Suspect some improvement in aeration. Additional follow-up recommended.
[2018-07-09 09:26] LABS: Basophils % (A) 0 %; Eosinophils # (A) 0.3 k/uL (0-0.7); Eosinophils % (A) 3 %; HCT 27.7 % (39.0-53.0); HGB 8.2 gm/dL (13.0-17.5); Hypochromasia Marked; Lymphocytes # (A) 0.7 k/uL (1.0-4.8); Lymphocytes % (A) 6 %; MCHC 29.7 g/dL (31.0-37.0); MCV 87.6 fL (80.0-100.0); Mean Platelet Volume 7.6; Monocytes # (A) 0.7 k/uL (0-1.0); Monocytes % (A) 6 %; Neutrophils # (A) 10.1 k/uL (1.3-7.7); Neutrophils % (A) 84 %; Platelet Count 298 k/uL (150-450); Poikilocytosis Slight; RBC 3.16 m/uL (4.30-5.90); RDW 15.8 % (11.5-15.5); WBC 11.9 k/uL (3.8-10.6)
[2018-07-09] MEDS ORDERED: VANCOMYCIN IV PER PHARMACY 1 EACH MISC MISCELLANE PRN (09:28)
[2018-07-09 09:30] LABS: Calcium 8.9 mg/dL (8.4-10.2); Magnesium 1.9 mg/dL (1.6-2.3); Phosphorus 3.5 mg/dL (2.5-4.5); Potassium 4.3 mmol/L (3.5-5.1)
[2018-07-09] MEDS ORDERED: ENOXAPARIN 40 MG/0.4 ML SYRINGE SQ SCH (09:30)
[2018-07-09] MEDS: CLOPIDOGREL 75 MG TAB PO SCH (10:13)
[2018-07-09] MEDS: PANTOPRAZOLE 40 MG/10 ML VIAL IV SCH (10:13)
[2018-07-09 11:08] LABS: Appearance,Urine Clear (Clear); Bilirubin,Urine Negative (Negative); Blood,Urine Negative (Negative); Color,Urine Light Yellow; Glucose,Urine (UA) Negative (Negative); Ketones,Urine Negative (Negative); Leukocyte Esterase,Urine Negative (Negative); Nitrite,Urine Negative (Negative); PH, Urine 5.5 (5.0-8.0); Protein,Urine Negative (Negative); Specific Gravity,Urine 1.009 (1.001-1.035); Urobilinogen,Urine <2.0 mg/dL (<2.0)
[2018-07-09 11:31] LABS: Glucose,Whole Blood 148 mg/dL (75-99)
[2018-07-09] MEDS: INSULIN ASPART (NovoLOG) 100 UNIT/ML VIAL SQ SCH ×4 (11:46→21:51)
[2018-07-09] MEDS: IPRATROPIUM-ALBUTEROL 3 ML NEB INHALATION SCH ×3 (11:50→20:20)
--- NOTE | 2018-07-09 12:25 | P.CNPUL ---
History of Present Illness Consult date: 07/09/18 Requesting physician: Lisandro Yanez Reason for consult: dyspnea, pneumonia Chief complaint: Altered mental status, and hypoxia, low O2 saturation History of present illness: This is a 63-year-old white male with history of multiple comorbidities, patient was brought into the ER from [facility] nursing facility mostly with altered mental status, and low O2 saturation. Patient is not a great historian, but has been according to him complaining of some cough, shortness of breath, and has n ot been feeling well. Patient was recently treated for coccygeal ulcer, and a foot ulcer. He was receiving IV antibiotics via a PICC line in his right arm. Patient apparently had osteomyelitis of the toe, and has been receiving vancomycin. Upon presentation to the ER, his O2 saturation was only 90% on 3 L. And he was confused and lethargic. CT of the brain was nondiagnostic. Chest x-ray showed bilateral pulmonary consolidation, patient was admitted, initially admitted to the regular medical floor. However around 6 AM this morning, I was notified about this patient having more lethargy, and O2 saturation was low on 4 L nasal cannula. ABG on 4 L showed a pO2 of 58 pCO2 of 47 and pH of 7.43. Hence I have arranged for the patient to be placed on BiPAP at 10 and 5, and the FiO2 to be titrated to keep saturation above 92. Patient was transferred to the intensive care unit. I saw this patient this morning in the ICU, remains on BiPAP, seems to be doing a bit better, breathing easier, O2 saturations are in the mid 90s. His FiO2 was titrated down, and I switched him to a high flow nasal cannula. In the meantime patient was given broad-spectrum antibiotics, bronchodilators, diuretics, and I felt a good have to be kept in the ICU at least for another 24 hours. During my evaluation, patient denied any headache, no blurred vision, no dizziness. Denies any chest pain, he did have some cough, wheezing, shortness of breath, denied any palpitations, no nausea no vomiting no abdominal pain no melena no hematemesis no dysuria and no frequency no urgency. Review of Systems 14 point review of systems were obtained, please refer to pertinent positives in HPI, otherwise remaining systems are negative. Past Medical History Past Medical History: Coronary Artery Disease (CAD), Heart Failure, COPD, CVA/TIA, Diabetes Mellitus, Deep Vein Thrombosis (DVT), GERD/Reflux, Hyperlipidemia, Hypertension, Myocardial Infarction (SD), Osteoarthritis (OA), Pneumonia, Pulmonary Embolus (PE), Skin Disorder, Vascular Disorder Additional Past Medical History / Comment(s): Pt recently admitted to [facility] on 06/05/18 with L great toe distal phalanx acute osteomylitis-now at [facility] for ABX thru Picc line. Other Hx: IDDM type II, neuropathy bilateral feet/legs/arms and hands, recently treated at [facility] for L great toe ulcer, January 2018 pt states was in coma/vented at [facility] d/t R 2nd toe infection, healed sacral ulcer, PVD,PAD, pt states he has been wearing oxygen ATC 3-4 L/NC, arthritis in low back and bilateral hips, chronic low back pain, gout, TIA x2, 2013 fall with brain bleed, gastric ulcer, psoriasis. Last Myocardial Infarction Date:: 08/2017 History of Any Multi-Drug Resistant Organisms: MRSA Date of last positivie culture/infection: 06/04/18 MDRO Source:: FOOT Past Surgical History: Heart Catheterization With Stent, Orthopedic Surgery, Tonsillectomy Additional Past Surgical History / Comment(s): Multiple cardiac caths and PCI with stents, L leg has 2 stents, L/R great toe debridements, 2nd R toe amp, bunionectomy-cannot recall laterality, bilateral rotator cuff surgery, colonoscopy, PICC line. Past Anesthesia/Blood Transfusion Reactions: Motion Sickness Additional Past Anesthesia/Blood Transfusion Reaction / Comment(s): pt stated has had a blood transfusion in past-no known reaction Date of Last Stent Placement:: 2016 Past Psychological History: Anxiety Additional Psychological History / Comment(s): Pt currently at [facility] for IV antibiotics. , normally lives in the family home with his . Pt uses a cane and walker to ambulate. He no longer drives, his spouse drives. Reformed smoker. Disabled. No international travel. No experience Smoking Status: Former smoker Past Alcohol Use History: None Reported Additional Past Alcohol Use History / Comment(s): QUIT SMOKING 1999, STARTED IN 1972, was smoking 2 ppd. in past was heavy drinker quit 1999 Past Drug Use History: None Reported - Past Family History Mother Family Medical History: Cancer, Coronary Artery Disease (CAD), Myocardial Infarction (SD) Additional Family Medical History / Comment(s): Mother had brain cancer. She at the age of 53 yrs from a SD Father Family Medical History: Coronary Artery Disease (CAD), Myocardial Infarction (SD) Additional Family Medical History / Comment(s): Father of a SD at the age of 63 yrs. Medications and Allergies Home Medications Medication Instructions Recorded Confirmed Type Ferrous Sulfate [Iron (65 MG 325 mg PO DAILY 04/05/17 07/09/18 History Elemental)] Cholecalciferol [Vitamin D3] 1,000 unit PO DAILY 09/19/17 07/09/18 History Isosorbide Mononitrate ER [Imdur] 30 mg PO DAILY 09/19/17 07/09/18 History Losartan [Cozaar] 25 mg PO DAILY 09/19/17 07/09/18 History Albuterol Sulfate [Proair Hfa] 1 - 2 puff INHALATION RT-Q6H PRN 09/26/17 07/09/18 History Lactobacillus Acidophilus 3 tab PO HS 09/26/17 07/09/18 History [Acidophilus] Clopidogrel [Plavix] 75 mg PO DAILY #30 tab 09/28/17 07/09/18 Rx Rivaroxaban [Xarelto] 15 mg PO W/SUPPER #30 tab 09/28/17 07/09/18 Rx Allopurinol [Zyloprim] 100 mg PO DAILY #30 tablet 11/15/17 07/09/18 Rx Metoprolol Tartrate [Lopressor] 100 mg PO BID@0800,1600 02/14/18 07/09/18 History Tamsulosin HCl [Flomax] 0.4 mg PO DAILY 02/14/18 07/09/18 History Divalproex ER [Depakote ER] 250 mg PO HS #30 tab.er.24h 02/27/18 07/09/18 Rx INSULIN ASPART (NovoLOG) [NovoLOG See Protocol SQ AC-TID 06/02/18 07/09/18 History (formulary)] Nitroglycerin Sl Tabs [Nitrostat] 0.4 mg SUBLINGUAL Q5M PRN 06/02/18 07/09/18 History Simethicone Chew [Mylicon Chew] 80 mg PO QID chew 06/10/18 07/09/18 Rx Albuterol Nebulized [Ventolin 2.5 mg INHALATION RT-Q6H PRN 06/26/18 07/09/18 History Nebulized] Citalopram Hydrobromide [CeleXA] 20 mg PO DAILY@0800 06/26/18 07/09/18 History Vancomycin 1,250 mg IVPB Q12HR 06/26/18 07/09/18 History oxyCODONE HCL [OxyCONTIN] 10 mg PO Q6H PRN 06/26/18 07/09/18 History Insulin Glargine,Hum.rec.anlog 20 unit SQ BID #0 06/29/18 07/09/18 Rx [Toujeo Solostar] Pregabalin [Lyrica] 150 mg PO BID #6 capsule 06/29/18 07/09/18 Rx oxyCODONE HCL [OxyCONTIN] 40 mg PO Q12H #6 tab.er.12h 06/29/18 07/09/18 Rx ALPRAZolam [Xanax] 0.25 mg PO Q12H PRN 07/09/18 07/09/18 History DULoxetine HCL [Cymbalta] 60 mg PO DAILY 07/09/18 07/09/18 History Furosemide [Lasix] 60 mg PO BID 07/09/18 07/09/18 History Omeprazole 20 mg PO DAILY 07/09/18 07/09/18 History Allergies Allergy/AdvReac Type Severity Reaction Status Date / Time No Known Allergies Allergy Verified 07/09/18 08:25 Physical Exam Vitals: Vital Signs Temp Pulse Pulse Resp BP BP Pulse Ox 07/09/18 12:03 90 07/09/18 12:00 98.7 F 90 13 140/68 99 07/09/18 11:52 90 98 07/09/18 11:00 92 13 120/48 100 07/09/18 10:45 99 07/09/18 10:00 94 24 144/69 99 07/09/18 09:30 87 11 L 111/91 100 07/09/18 09:00 87 25 H 142/69 100 07/09/18 08:30 98.8 F 87 10 L 148/68 100 07/09/18 07:35 92 97 07/09/18 07:00 98.6 F 91 20 153/48 80 L 07/09/18 03:46 97.9 F 82 20 127/61 95 07/09/18 03:33 87 20 133/59 94 L 07/09/18 00:40 63 14 150/113 07/09/18 00:30 61 9 L 177/99 07/09/18 00:20 80 35 H 177/99 07/09/18 00:10 64 12 07/09/18 00:00 153/89 07/08/18 23:50 59 L 8 L 153/89 98 07/08/18 23:40 59 L 8 L 154/78 99 07/08/18 23:34 58 L 6 L 154/78 99 07/08/18 23:30 58 L 7 L 160/74 100 07/08/18 23:20 56 L 7 L 160/74 99 07/08/18 23:10 57 L 7 L 164/81 100 07/08/18 23:00 58 L 7 L 153/89 99 07/08/18 22:50 59 L 7 L 153/89 99 07/08/18 22:40 60 7 L 170/63 99 07/08/18 22:30 60 9 L 157/80 99 07/08/18 22:20 59 L 15 157/80 98 07/08/18 22:10 58 L 7 L 156/77 99 07/08/18 22:00 56 L 7 L 126/99 98 07/08/18 21:50 57 L 8 L 126/99 98 07/08/18 21:40 53 L 10 L 113/81 98 07/08/18 21:30 62 7 L 140/76 100 07/08/18 21:21 97.4 F L 62 12 140/76 100 07/08/18 21:20 97 Intake and Output 07/08/18 07/09/18 07/09/18 21:59 06:59 14:59 Intake Total 200 Output Total 825 Balance -625 Intake: Oral 200 Output: Urine 825 Other: Voiding Method Indwelling Catheter # Voids Weight Gen.: Revealed a 63-year-old white male, on BiPAP, in no distress. Seems to be quite comfortable. Head: Atraumatic, normocephalic. HEENT: PERRLA, EOMI, no icterus. No neck masses, no JVD, moist mucous membranes, no stridor. Cardiovascular: Heart regular rate and rhythm, S1&S2 audible, no murmurs, rubs or gallops Chest: Diminished breath sound bilaterally, some rhonchi on forced expiratory ma neuver noted bilaterally. Abdomen: Obese, soft, nontender, no megaly, no rebound. No guarding. multiple pleural areas of ecchymoses over the anterior abdomen likely from heparin Musculoskeletal: Pulses present and equal in all extremities, no peripheral edema Motor: Power 5/5 bilaterally, no focal deficits noted Neurological: CN II-XII grossly intact, no focal motor or sensory deficits noted Skin: Well-healing wound to the left great toe, deep coccyx ulcer noted. No purulent discharge noted, no surrounding erythema. Psych: Normal affect and mood Results - Laboratory Findings CBC and BMP: 07/09/18 08:57 07/09/18 08:57 ABG ABG pH 7.43 (7.35-7.45) 07/09/18 07:23 ABG pCO2 47 mmHg (35-45) H 07/09/18 07:23 ABG pO2 58 mmHg (83-108) L* 07/09/18 07:23 ABG O2 Saturation 92.6 % (94-97) L 07/09/18 07:23 PT/INR, D-dimer PT 12.8 sec (9.0-12.0) H 07/08/18 22:45 INR 1.2 (<1.2) H 07/08/18 22:45 Abnormal lab findings: Abnormal Labs 07/08/18 07/08/18 07/08/18 22:45 22:45 22:45 WBC 12.6 H RBC 3.21 L Hgb 8.3 L Hct 28.2 L MCHC 29.7 L RDW 16.0 H Neutrophils # 9.8 H Lymphocytes # PT 12.8 H INR 1.2 H APTT 33.1 H ABG pCO2 ABG pO2 ABG HCO3 ABG Total CO2 ABG O2 Saturation VBG pH VBG pCO2 VBG HCO3 Carbon Dioxide 35 H BUN 44 H Creatinine 1.90 H Glucose POC Glucose (mg/dL) Creatine Kinase 29 L Albumin 3.2 L 07/08/18 07/09/18 07/09/18 23:15 07:10 07:23 WBC RBC Hgb Hct MCHC RDW Neutrophils # Lymphocytes # PT INR APTT ABG pCO2 47 H ABG pO2 58 L* ABG HCO3 31 H ABG Total CO2 33 H ABG O2 Saturation 92.6 L VBG pH 7.28 L VBG pCO2 73 H* VBG HCO3 33 H Carbon Dioxide BUN Creatinine Glucose POC Glucose (mg/dL) 127 H Creatine Kinase Albumin 07/09/18 07/09/18 07/09/18 08:57 08:57 11:28 WBC 11.9 H RBC 3.16 L Hgb 8.2 L Hct 27.7 L MCHC 29.7 L RDW 15.8 H Neutrophils # 10.1 H Lymphocytes # 0.7 L PT INR APTT ABG pCO2 ABG pO2 ABG HCO3 ABG Total CO2 ABG O2 Saturation VBG pH VBG pCO2 VBG HCO3 Carbon Dioxide 32 H BUN 42 H Creatinine 1.54 H Glucose 109 H POC Glucose (mg/dL) 148 H Creatine Kinase Albumin - Diagnostic Findings Chest x-ray: image reviewed (2 x-rays of the chest were reviewed, the initial chest x-ray on admission showed bilateral consolidation. And prominence of the interstitium. Follow-up chest x-ray this morning showed prominent interstitium, but there is definite improvement in the aeration of both lungs.) Assessment and Plan Assessment: Impression: 1 acute hypoxic respiratory failure, secondary to healthcare acquired pneumonia, cannot rule out aspiration pneumonia based on the chest x-ray on presentation. And COPD exacerbation. 2 suspect some component of systolic congestive heart failure, patient had previous echocardiogram showing ejection fraction of 45%. 3 chronic coccygeal deep ulcer with osteomyelitis of the left big toe. Patient has been on IV antibiotics in the form of daptomycin 4 history of coronary artery disease and previous stent of circumflex. 5 chronic obstructive pulmonary disease, with acute exacerbation. 6 benign essential hypertension 7 type 2 diabetes 8 GERD without esophagitis 9 osteoarthritis 10 history of depression and anxiety 11 chronic low back pain being followed in the pain clinic. Recommendation: Patient was transferred to the ICU early this morning, continue BiPAP for now, will likely switch to a high flow nasal cannula if tolerated, continue cefepime and vancomycin, continue bronchodilators, Lovenox, Lasix, updrafts albuterol/Atrovent, insulin as per protocol, patient is back on his Depakote, back on his Plavix, and he is on GI and DVT prophylaxis. Will monitor in the intensive care unit for the next 24 hours, and based on his response to treatment and based on the follow-up chest x-ray, may transfer back to the regular medical floor. Considering his osteomyelitis of the toe, and his coccy geal ulcer, I will recommend infectious disease to evaluate the patient. We'll continue to follow. Time with Patient: Greater than 30
[2018-07-09] MEDS ORDERED: NITROGLYCERIN SL TABS 0.4 MG TAB SUBLINGUAL PRN (15:08)
[2018-07-09] MEDS ORDERED: oxyCODONE ER 10 MG TAB.ER.12H PO PRN (15:08)
[2018-07-09] MEDS: ALPRAZolam 0.25 MG TAB PO PRN (16:03)
[2018-07-09] MEDS: METOPROLOL TARTRATE 50 MG TAB PO SCH (16:03)
--- NOTE | 2018-07-09 16:47 | HP ---
HISTORY AND PHYSICAL DATE OF ADMISSION: July 09, 2018. DATE OF SERVICE: July 09, 2018. PRESENTING COMPLAINT: Lethargic, hypoxic. HISTORY OF PRESENTING COMPLAINT: This is a pleasant 63-year-old patient, well known to me, follows with Dr. Naqvi. The patient is being treated for a left big toe distal phalanx acute osteomyelitis being followed by Dr. Garcia from [place]. The patient's chronic stable medical conditions include coronary artery disease, COPD, diabetes, GERD, hyperlipidemia, hypertension, peripheral artery disease, chronic low back pain. The patient is currently at the [facility]. The patient at baseline is rather anxious. The patient was just recently here and treated for CHF. The patient continues to get IV antibiotics. The patient is brought in being hypoxic and feeling tired and lethargic and patient became agitated on the medical floor. The patient was transferred to the ICU. The patient is still somewhat delirious, able to answer some questions. REVIEW OF SYSTEMS: CONSTITUTIONAL: Tired. HEENT none. RESPIRATORY: Some shortness of breath. CARDIOVASCULAR: None. GASTROINTESTINAL: None. GENITOURINARY: None. MUSCULOSKELETAL: Arthritic pain in joints and lower back. DERMATOLOGICAL: Left big toe wound not draining. HEMATOLOGIC, LYMPHATIC: None. PSYCHIATRY: The patient is somewhat delirious. NEUROLOGICAL: None. PAST MEDICAL HISTORY: Left big toe distal phalanx acute osteomyelitis, currently undergoing treatment. Coronary artery disease with stent to the circumflex, COPD, diabetes mellitus type 2, GERD, hyperlipidemia, hypertension, primary osteoarthritis, peripheral artery disease with stent, history of amputation right big toe, sacral wound that is healed, depression, anxiety, chronic low back pain from arthritis, being followed by Dr. Cortez, congestive heart failure, stroke, had been on the ventilator. Home oxygen 3-4 L, gout. The patient in 2013 had a fall with a brain bleed, gastric ulcer. PAST SURGICAL HISTORY: Multiple cardiac caths with stents. Left leg had 2 stents. Second right toe amputation, bunionectomy, bilateral rotator cuff surgery. SOCIAL HISTORY: Currently at [facility], getting IV antibiotics. . Does use a cane and a walker. The patient is on disability. Patient smoked for 17 years, stopped in 1999. Smoked 2 packs a day. Was drinking heavily up until 1999. FAMILY HISTORY: Mother had brain cancer and of a heart attack. HOME MEDICATIONS: 1. OxyContin 40 mg p.o. q.12h 10 mg p.o. q.6h p.r.n. 2. Vancomycin 1250 IV piggyback q.12h. 3. Flomax 0.4 mg p.o. daily. 4. Mysoline 80 mg p.o. q.i.d. 5. Xarelto 50 mg with supper. 6. Lyrica 150 mg b.i.d. 7. Omeprazole 20 mg p.o. daily. 8. Nitrostat 0.4 sublingual q.5 p.r.n. 9. Lopressor 100 mg p.o. b.i.d. 10.Cozaar 25 mg p.o. daily. 11.Acidophilus 3 tablets p.o. q.h.s. 12.Imdur ER 30 mg p.o. daily. 13.Insulin Lantus 20 units subcu b.i.d. 14.NovoLog per scale. 15.Lasix 60 mg b.i.d. 16.Ferrous sulfate 325 p.o. daily. 17.Depakene ER 250 mg q.h.s. 18.Cymbalta 60 mg p.o. daily. 19.Plavix 75 mg p.o. daily. 20.Celexa 20 mg p.o. daily. 21.Vitamin D3 1000 units p.o. daily. 22.Allopurinol 100 mg p.o. daily. 23.ProAir 1-2 puffs q.6h p.r.n. 24.Ventolin 2.5 q.6h p.r.n. 25.Xanax 0.25 p.o. q.12h p.r.n. ALLERGIES: None. PHYSICAL EXAMINATION: VITAL SIGNS: Temperature 97.4 pulse 72, respirations 12, blood pressure 140/76, pulse ox 100 percent on 3 L. GENERAL APPEARANCE: Well built, BMI 38.6. Lying in bed, awake, somewhat delirious. EYES: Pupils equal. Conjunctivae normal. HEENT: External appearance of nose and ears normal. Oral cavity normal. NECK: JVD not raised. Mass not palpable. RESPIRATORY: Effort increased. LUNGS: Diminished breath sounds. CARDIOVASCULAR: First and second sounds normal. Minimal edema. ABDOMEN: Distended. Soft. Liver and spleen not palpable. LYMPHATICS: No lymph nodes palpable in the neck or axilla. PSYCHIATRY: The patient is able answer questions, but the patient is delirious, sometimes talking off. NEUROLOGICAL: Pupils equal. No facial asymmetry. Power and sensation grossly intact. EXTREMITIES: Left big toe wound on the distal aspect on the plantar side in the buttock cleft. There is no open wound. INVESTIGATIONS: White count 12.6, hemoglobin 8.3, platelets 323, potassium 5.0, BUN 44, creatinine 1.90. Patient's BUN and creatinine on June 29, 2018 was 28 and 0.94. EKG tracing personally reviewed by me shows normal sinus rhythm. Chest x-ray film personally reviewed by me shows a portable film, cardiomegaly, questionable venous prominence/infiltrate. CT scan of the brain nil acute. ASSESSMENT: 1. Acute mental status changes, felt to be acute delirium probably from underlying acute renal failure leading to some agitation. 2. Chronic congestive heart failure from systolic and diastolic dysfunction EF 45-50 percent. 3. Left big toe distal phalanx acute osteomyelitis for which patient is on 6 weeks of IV antibiotics since 06/10/2018. 4. Acute renal failure probably component of prerenal and could be ATN/vancomycin induced acute renal failure contributing to the delirium. 5. Coronary artery disease, prior history of stent in the circumflex. 6. Chronic obstructive pulmonary disease in an ex-smoker. 7. Diabetes mellitus type 2, chronically on insulin. 8. Gastroesophageal reflux disease. 9. Hyperlipidemia. 10.Essential hypertension. 11.Primary osteoarthritis. 12.Peripheral artery disease with stent. 13.History of amputation of right big toe. 14.Sacral wound, chronically healed. 15.Depression and anxiety, not otherwise specified. 16.Chronic low back pain from arthritis, being followed by Dr. Cortez. PLAN: We will temporarily hold off patient's Lasix and Cozaar. The patient is being hydrated. I did speak to Dr. Garcia who will coordinate the patient's antibiotics, especially with the patient on vancomycin. We will also get a nephrology opinion. The patient is currently in the ICU, being followed by Dr. Jaquez. I do not see any obvious evidence of pneumonia. Copy to Dr. Naqvi. MMODL / IJN: [id number] /
[2018-07-09] MEDS: SIMETHICONE 80 MG CHEWABLE PO SCH ×2 (17:08→22:25)
[2018-07-09] MEDS: RIVAROXABAN 15 MG TAB PO SCH (17:08)
[2018-07-09 17:15] LABS: Glucose,Whole Blood 213 mg/dL (75-99)
[2018-07-09] MEDS: ISOSORBIDE MONONITRATE ER 30 MG TAB.ER.24H PO SCH (17:35)
[2018-07-09] MEDS: TAMSULOSIN 0.4 MG CAP.ER.24H PO SCH (17:35)
--- NOTE | 2018-07-09 18:38 | CONS ---
CONSULTATION DATE OF SERVICE: 07/09/2018. REASON FOR CONSULTATION: 1. Left big toe osteomyelitis, acute MRSA. 2. Pneumonia. HISTORY OF PRESENT ILLNESS: The patient is a 63-year-old male who was recently admitted at this facility back in June. The patient did have a nonhealing wound to his left foot 5th plantar aspect. The plain x-ray showed destructive changes. The bone scan was suspicious for an osteomyelitis and confirmed on the MRI of the foot. The patient cultures were positive for MRSA. The patient subsequently got a PICC line, was advised to vancomycin pharmacy to dose. The patient apparently was receiving this at [facility]. The patient has not followed up with us in the outpatient setting. He was recently readmitted to this facility about 10 days ago with infectious . The patient was brought to the ER at [facility] yesterday for lethargic and hypoxemia. Apparently breathing has been getting worse for the last few days. The patient noticed to be 90% on 2 L nasal cannula. The patient currently denies having any chest pain. He did have some cough, bringing up some sputum, not sure about the color. No nausea or vomiting, no choking on food. No abdominal pain. No diarrhea. He denies any pain into the left back area. The patient was evaluated by the ER physician. The patient did have a chest x-ray which showed noted bilaterally. The patient was initially one , subsequently the patient has been noncompliant with BiPAP and brought into the ICU. The patient has been continued on vancomycin and cefepime was added for gram-negative pneumonia. Infectious Disease was consulted for further recommendation for antibiotic therapy. REVIEW OF SYSTEMS: Positive points have been mentioned in HPI. The rest of the systems have been negative. PAST MEDICAL HISTORY: Left big toe acute osteomyelitis, , CVA, diabetes mellitus, disease, hypertension, hyperlipidemia, osteoarthritis, PE, colitis with MRSA infection. PAST SURGICAL HISTORY: PTCA with stent, possible , and heart catheterization. SOCIAL HISTORY: Remote history of smoking. No drinking or drug use currently. FAMILY HISTORY: Father with history of colon disease. ALLERGIES: No known drug allergies. MEDICATIONS: The patient is currently on DuoNeb, Zyloprim, Xanax, cefepime 1 g every 12 hours, , Plavix, Depakote, NovoLog, Levemir, Imdur, Lactinex, Lopressor, morphine, nitrostat, Protonix, Lyrica, Xarelto, vancomycin, 24 hours. PHYSICAL EXAMINATION: Blood pressure is 158/75, pulse of 101, temperature 98.8. He is 98% on nasal high-flow oxygen. GENERAL DESCRIPTION: A middle aged male lying in bed in no distress. No tachypnea or accessory muscle of respiration use. HEENT: Shows pallor. No scleral icterus. Oral mucosa is dry. No physical erythema. NECK: Trachea midline. No thyromegaly. LUNGS: Unlabored breathing, decreased breath sounds in the base, with some crackles. HEART: S1, S2. Regular rate and rhythm. ABDOMEN: Soft, no tenderness. No guarding or rigidity. EXTREMITIES: No edema of the feet. Left big toe swelling redness has improved. Plantar aspect did have a wound with no slough tissue. The patient also has a stage II pressure ulcer in the sacral area with some maceration, but no foul smelling drainage. NEUROLOGIC: The patient is awake, alert, oriented x3. Mood and affect normal. LABS: Hemoglobin 8.1, white count 11.9 with a BUN of 42, creatinine 1.54. Creatinine did improve yesterday to 1.90. Vancomycin trough is slightly elevated. DIAGNOSTIC IMPRESSION AND PLAN: 1. Patient admitted to the hospital with difficulty breathing likely multifactorial in this patient who did have evidence of pneumonia with concern for possible gram- negative as the patient has been on vancomycin for his osteomyelitis with the level being therapeutic. 2. The patient with left big foot acute osteomyelitis secondary to MRSA. 3. Stage II pressure ulcer to sacral area with no evidence of any cellulitis. PLAN: 1. Will try to obtain sputum for Gram stain, culture and sensitivity. 2. Vanc up to 2 grams every 12h. Vancomycin pharmacy to dose, target of , watching his kidney function closely. In view of improvement in his creatinine from yesterday. We will keep the patient on vancomycin at this point. 3. Aquacel Silver dressing to the left big toe and sacral are to be changed every 48 hours. 4. We will follow. 5. We will discuss with Dr. Mujica to treat the patient's wound. He will follow this patient likely tomorrow. MMODL / IJN: [id number] /
[2018-07-09 20:36] LABS: Glucose,Whole Blood 288 mg/dL (75-99)
[2018-07-09] MEDS ORDERED: CEFEPIME 2 GM in SODIUM CHLORIDE 0.9% 50 ML IVPB SCH (21:00)
[2018-07-09] MEDS ORDERED: CEFEPIME 1 GM in SODIUM CHLORIDE 0.9% 50 ML IVPB SCH (21:00)
[2018-07-09] MEDS: CEFEPIME 2 GM in SODIUM CHLORIDE 0.9% 100 ML IVPB SCH (21:45)
[2018-07-09] MEDS: DIVALPROEX ER 250 MG TAB.ER.24H PO SCH (21:50)
[2018-07-09] MEDS: PREGABALIN 75 MG CAP PO SCH (21:50)
[2018-07-09] MEDS: LACTOBACILLUS ACIDOPH & BULGAR 1 EACH PACKET PO SCH (21:50)
[2018-07-09] MEDS: VANCOMYCIN 1,750 MG in SODIUM CHLORIDE 0.9% 500 ML 500 ML IVPB SCH (21:55)
[2018-07-09] MEDS: INSULIN DETEMIR (LEVEMIR) 100 UNIT/ML SYR SQ SCH (21:56)
[2018-07-09] MEDS ORDERED: LORazepam 2 MG/ML INJ IV PRN (22:54)
[2018-07-09] MEDS ORDERED: FUROSEMIDE 10 MG/ML 4 ML VIAL IV STA (22:55)
[2018-07-10] MEDS ORDERED: HALOPERIDOL LACTATE 5 MG/ML 1 ML VIAL IVP PRN (02:13)
[2018-07-10] MEDS: SODIUM CHLORIDE 0.9% 1,000 ML IV SCH (03:17)
[2018-07-10] MEDS: DEXMEDETOMIDINE/0.9% NACL(PMX) 400 MCG in EMPTY BAG 1 BAG IV SCH ×2 (04:10→13:19)
[2018-07-10 05:34] LABS: Basophils % (A) 0 %; Eosinophils # (A) 0.1 k/uL (0-0.7); Eosinophils % (A) 1 %; HCT 24.1 % (39.0-53.0); HGB 7.5 gm/dL (13.0-17.5); Hypochromasia Marked; Lymphocytes # (A) 0.6 k/uL (1.0-4.8); Lymphocytes % (A) 5 %; MCH 26.7 pg (25.0-35.0); MCHC 30.9 g/dL (31.0-37.0); MCV 86.2 fL (80.0-100.0); Mean Platelet Volume 6.9; Monocytes # (A) 0.7 k/uL (0-1.0); Monocytes % (A) 6 %; Neutrophils # (A) 10.1 k/uL (1.3-7.7); Neutrophils % (A) 87 %; Platelet Count 305 k/uL (150-450); Poikilocytosis Slight; RDW 15.9 % (11.5-15.5); WBC 11.6 k/uL (3.8-10.6)
[2018-07-10 05:45] LABS: Calcium 8.6 mg/dL (8.4-10.2); Magnesium 1.6 mg/dL (1.6-2.3); Phosphorus 2.5 mg/dL (2.5-4.5)
[2018-07-10] MEDS ORDERED: Magnesium Replacement Protocol 1 EACH MISC MISCELLANE PRN (05:53)
[2018-07-10] MEDS: MAGNESIUM SULFATE-D5W PMX 1 GM in DEXTROSE/WATER 1 100ML.BAG IVPB SCH ×2 (06:16→09:24)
[2018-07-10 07:01] LABS: Glucose,Whole Blood 145 mg/dL (75-99)
[2018-07-10 07:06] LABS: Glucose,Whole Blood 142 mg/dL (75-99)
[2018-07-10] MEDS: IPRATROPIUM-ALBUTEROL 3 ML NEB INHALATION SCH ×4 (07:11→18:45)
[2018-07-10] MEDS: INSULIN ASPART (NovoLOG) 100 UNIT/ML VIAL SQ SCH ×4 (07:13→20:33)
[2018-07-10] MEDS: FUROSEMIDE 10 MG/ML 4 ML VIAL IV SCH ×2 (09:24→20:34)
[2018-07-10] MEDS: CEFEPIME 2 GM in SODIUM CHLORIDE 0.9% 100 ML IVPB SCH ×2 (09:24→20:33)
[2018-07-10] MEDS: PANTOPRAZOLE 40 MG/10 ML VIAL IV SCH (09:25)
[2018-07-10 09:53] LABS: Glucose,Whole Blood 114 mg/dL (75-99)
[2018-07-10] MEDS: SIMETHICONE 80 MG CHEWABLE PO SCH ×4 (09:53→20:55)
--- NOTE | 2018-07-10 09:56 | XR ---
EXAMINATION TYPE: XR chest 1V DATE OF EXAM: 07/10/2018 COMPARISON: Prior chest x-ray 07/09/2018 HISTORY: Hypercapnic with consolidation, abnormal chest x-ray TECHNIQUE: Single frontal view of the chest is obtained. FINDINGS: There is been interval progression of bilateral airspace disease. No evident pneumothorax. Heart size is likely stable. IMPRESSION: Correlate for congestive heart failure, pneumonia not excluded.
--- NOTE | 2018-07-10 10:14 | P.PN ---
Subjective Progress Note Date: 07/10/18 Principal diagnosis: Acute hypoxic respiratory failure secondary to healthcare acquired pneumonia, and there may be component of systolic congestive heart failure This is a 63-year-old white male with history of multiple comorbidities, patient was brought into the ER from [facility] mostly with altered mental status, and low O2 saturation. Patient is not a great historian, but has been according to him complaining of some cough, shortness of breath, and has not been feeling well. Patient was recently treated for coccygeal ulcer, and a foot ulcer. He was receiving IV antibiotics via a PICC line in his right arm. Patient apparently had osteomyelitis of the toe, and has been receiving vancomycin. Upon presentation to the ER, his O2 saturation was only 90% on 3 L. And he was confused and lethargic. CT of the brain was nondiagnostic. Chest x-ray showed bilateral pulmonary consolidation, patient was admitted, initially admitted to the regular medical floor. However around 6 AM this morning, I was notified about this patient having more lethargy, and O2 saturation was low on 4 L nasal cannula. ABG on 4 L showed a pO2 of 58 pCO2 of 47 and pH of 7.43. Hence I have arranged for the patient to be placed on BiPAP at 10 and 5, and the FiO2 to be titrated to keep saturation above 92. Patient was transferred to the intensive care unit. I saw this patient this morning in the ICU, remains on BiPAP, seems to be doing a bit better, breathing easier, O2 saturations are in the mid 90s. His FiO2 was titrated down, and I switched him to a high flow nasal cannula. In the meantime patient was given broad-spectrum antibiotics, bronchodilators, diuretics, and I felt a good have to be kept in the ICU at least for another 24 hours. During my evaluation, patient denied any headache, no blurred vision, no dizziness. Denies any chest pain, he did have some cough, wheezing, shortness of breath, denied any palpitations, no nausea no vomiting no abdominal pain no melena no hematemesis no dysuria and no frequency no urgency. On 07/10/2018 patient seen in follow-up in the intensive care unit, he is somnolent on today's exam, does wake up, he is confused, apparently last night he was quite agitated, would not wear a BiPAP for longer than 1 hour, he was removing his oxygen cannula. Patient was given a trial of an, and Haldol, however he only seem to be more delirious, confused and agitated. He was then placed on Precedex, which is currently infusing at a rate of 0.2 mcg/kg per hour down from 0.4 mics per kilo per hour. Seems calmer, and more compliant with therapy, currently on 6 L per nasal cannula his pulse ox 100%, he is in sinus mechanism, his chest x-ray has been reviewed with Dr. Bergeron, and shows worsening in appearance of diffuse bilateral infiltrates, suspect a component of congestive heart failure, fluid overload, we will add a BNP to this morning's labs. Afebrile this morning, hemodynamically stable, urine culture in progress, we were unable to collect a sputum culture, blood cultures have been ordered, pending, antibiotic coverage includes cefepime and vancomycin. She is getting local wound care to decubitus ulcers on his coccyx is a nonhealing wound on his left foot fifth plantar aspect. ID service is following. And there was a confirmed osteomyelitis on the MRI of the foot. Wound cultures were positive for MRSA. Patient does have a right upper arm PICC line. Patient was [facility]. He comfortable on today's exam, no acute distress, resting comfortably in bed, afebrile, hemodynamically stable, sounds reveal management sounds bilaterally, no rhonchi, no wheezes. Objective - Vital Signs Vital signs: Vital Signs Temp 98.6 F 07/10/18 04:00 Pulse 80 07/10/18 07:23 Resp 15 07/10/18 07:00 BP 122/61 07/10/18 07:00 Pulse Ox 100 07/10/18 07:12 Intake & Output 07/09/18 07/10/18 07/10/18 18:59 06:59 18:59 Intake Total 1150 775.354 122.109 Output Total 4125 2875 100 Balance -0244 -3116.646 22.109 Weight 121.7 kg Intake: IV 600 100 Cefepime 2 gm In Sodium 100 Chloride 0.9% 100 ml @ 200 mls/hr IVPB ONCE ONE Rx#:[id number] Magnesium Sulfate-D5w Pmx 100 1 gm In Dextrose/Water 1 100ml.bag @ 100 mls/hr IVPB Q1H KARLA Rx#: [id number] Vancomycin 1,750 mg In 500 Sodium Chloride 0.9% 500 ml 500 ml @ 167 mls/hr IVPB Q24H KARLA Rx#: [id number] Intake, IV Titration 25.354 22.109 Amount Dexmedetomidine/0.9% NaCl 25.354 22.109 (Pmx) 400 mcg In Empty Bag 1 bag @ Titrate IV . Q0M KARLA Rx#:[id number] Oral 1150 150 Output: Urine 4125 2875 100 Uretheral (Petersen) 600 Other: Voiding Method Indwelling Catheter Indwelling Catheter - Exam GENERAL EXAM: Lethargic, obese 63-year-old white male, on 6 L per high flow nasal cannula comfortable in no apparent distress. HEAD: Normocephalic/atraumatic. EYES: Normal reaction of pupils, equal size. Conjunctiva pink, sclera white. NOSE: Clear with pink turbinates. THROAT: No erythema or exudates. NECK: No masses, no JVD, no thyroid enlargement, no adenopathy. CHEST: No chest wall deformity. Symmetrical expansion. LUNGS: Equal air entry with a few scattered rhonchi, no significant wheezing, no rales CVS: Regular rate and rhythm, normal S1 and S2, no gallops, no murmurs, no rubs ABDOMEN: Soft, nontender. No hepatosplenomegaly, normal bowel sounds, no guarding or rigidity. EXTREMITIES: No clubbing, no edema, no cyanosis, 2+ pulses and upper and lower extremities. MUSCULOSKELETAL: Muscle strength and tone normal. SPINE: No scoliosis or deformity SKIN: No rashes CENTRAL NERVOUS SYSTEM: Alert and oriented -3. No focal deficits, tone is normal in all 4 extremities. PSYCHIATRIC: Alert and oriented -3. Appropriate affect. Intact judgment and insight. - Labs CBC & Chem 7: 07/10/18 04:46 07/10/18 04:46 Labs: Abnormal Lab Results - Last 24 Hours (Table) 07/09/18 07/09/18 07/09/18 Range/Units 11:28 17:03 20:34 WBC (3.8-10.6) k/uL RBC (4.30-5.90) m/uL Hgb (13.0-17.5) gm/dL Hct (39.0-53.0) % MCHC (31.0-37.0) g/dL RDW (11.5-15.5) % Neutrophils # (1.3-7.7) k/uL Lymphocytes # (1.0-4.8) k/uL Carbon Dioxide (22-30) mmol/L BUN (9-20) mg/dL Glucose (74-99) mg/dL POC Glucose (mg/dL) 148 H 213 H 288 H (75-99) mg/dL 07/10/18 07/10/18 07/10/18 Range/Units 04:46 04:46 06:59 WBC 11.6 H (3.8-10.6) k/uL RBC 2.80 L (4.30-5.90) m/uL Hgb 7.5 L (13.0-17.5) gm/dL Hct 24.1 L (39.0-53.0) % MCHC 30.9 L (31.0-37.0) g/dL RDW 15.9 H (11.5-15.5) % Neutrophils # 10.1 H (1.3-7.7) k/uL Lymphocytes # 0.6 L (1.0-4.8) k/uL Carbon Dioxide 32 H (22-30) mmol/L BUN 29 H (9-20) mg/dL Glucose 127 H (74-99) mg/dL POC Glucose (mg/dL) 145 H (75-99) mg/dL 07/10/18 07/10/18 Range/Units 07:05 09:51 WBC (3.8-10.6) k/uL RBC (4.30-5.90) m/uL Hgb (13.0-17.5) gm/dL Hct (39.0-53.0) % MCHC (31.0-37.0) g/dL RDW (11.5-15.5) % Neutrophils # (1.3-7.7) k/uL Lymphocytes # (1.0-4.8) k/uL Carbon Dioxide (22-30) mmol/L BUN (9-20) mg/dL Glucose (74-99) mg/dL POC Glucose (mg/dL) 142 H 114 H (75-99) mg/dL Microbiology - Last 24 Hours (Table) 07/09/18 01:30 Urine Culture - Preliminary Urine,Voided Assessment and Plan Plan: Assessment: 1 acute hypoxic respiratory failure, secondary to healthcare acquired pneumonia, cannot rule out aspiration pneumonia based on the chest x-ray on presentation. And COPD exacerbation. 2 suspect some component of systolic congestive heart failure, patient had previous echocardiogram showing ejection fraction of 45%. 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 Patient has been on IV antibiotics in the form of daptomycin 5 agitated delirium related to infection, sepsis, hypercapnic respiratory failure 6 history of coronary artery disease and previous stent of circumflex. 7 chronic obstructive pulmonary disease, with acute exacerbation. 8 benign essential hypertension 9 type 2 diabetes 10 GERD without esophagitis 11 osteoarthritis 12 history of depression and anxiety 13 chronic low back pain being followed in the pain clinic. Plan: Continue with current antibiotic coverage, cefepime and vancomycin, local wound care to the left big toe, and a stage II coccygeal ulcer, cultures are pending, patient is afebrile, hemodynamically stable. Will add BNP to this morning's labs. BiPAP as needed. FiO2, we'll try to obtain a sputum specimen, we will wean Precedex. No GI and DVT prophylaxis. Continue to follow I performed a history & physical examination of the patient and discussed their management with my nurse practitioner, Nadira Collins. I reviewed the nurse practitioner's note and agree with the documented findings and plan of care. Lung sounds are positive for diffuse scattered rhonchi. The findings and the impression was discussed with the patient. I attest to the documentation by the nurse practitioner. Time with Patient: Greater than 30
[2018-07-10 11:27] LABS: Glucose,Whole Blood 105 mg/dL (75-99)
[2018-07-10] MEDS: DULoxetine HCL 60 MG CAPSULE.DR PO SCH (11:47)
[2018-07-10] MEDS: TAMSULOSIN 0.4 MG CAP.ER.24H PO SCH (11:47)
[2018-07-10] MEDS: PREGABALIN 75 MG CAP PO SCH ×2 (11:47→20:34)
[2018-07-10] MEDS: CITALOPRAM HYDROBROMIDE 20 MG TAB PO SCH (11:48)
[2018-07-10] MEDS: CLOPIDOGREL 75 MG TAB PO SCH (11:48)
[2018-07-10] MEDS: ALLOPURINOL 100 MG TAB PO SCH (11:49)
[2018-07-10] MEDS: INSULIN DETEMIR (LEVEMIR) 100 UNIT/ML SYR SQ SCH ×2 (12:48→20:33)
[2018-07-10 13:14] VITALS: BMI 38.5
[2018-07-10] MEDS: METOPROLOL TARTRATE 50 MG TAB PO SCH ×2 (13:18→17:34)
[2018-07-10] MEDS: ISOSORBIDE MONONITRATE ER 30 MG TAB.ER.24H PO SCH (13:18)
--- NOTE | 2018-07-10 15:54 | P.PN ---
Subjective Progress Note Date: 07/10/18 63 -year-old male well-known to the infectious disease service for his multiple Hospital physicians including the prior very large coccyx pressure ulceration with stage IV that has been well treated and generally resolved. Has had multiple hospitalizations with heart failure, depression and pne umonia.recently patient was hospitalized at this point without evidence of the osteomyelitis of the left great toe and has been at the rehab facility receiving intravenous antibiotic therapy with vancomycin for the isolated MRSA. Apparently the patient had acute worsening of his status. He became very short of breath and altered mental status and hypoxia consequently was transferred to our facility. Initial x-ray reveal evidence of some potential worsening of the bilateral infiltrates which on follow-up seems to be a bit better after he has diuresed. He is most aware BiPAP but is with noncompliance. At admission he had concerns to gram-negative pneumonia and constantly was brought to intensive care unit. Is receiving cefepime and vancomycin. His mental status is definitely improved. However he has required BiPAP intermittently and was on high flow oxygen several hours prior. Seems more stable at this time. Objective - Vital Signs Vital signs: Vital Signs Temp 98.9 F 07/10/18 12:00 Pulse 71 07/10/18 15:19 Resp 16 07/10/18 15:19 BP 117/52 07/10/18 15:00 Pulse Ox 99 07/10/18 15:00 Intake & Output 07/09/18 07/10/18 07/10/18 18:59 06:59 18:59 Intake Total 1150 775.354 432.557 Output Total 4125 2875 1325 Balance -7179 -8869.646 -892.443 Weight 121.7 kg 121.7 kg Intake: IV 600 400 Cefepime 2 gm In Sodium 100 Chloride 0.9% 100 ml @ 200 mls/hr IVPB ONCE ONE Rx#:[id number] Magnesium Sulfate-D5w Pmx 300 1 gm In Dextrose/Water 1 100ml.bag @ 100 mls/hr IVPB Q1H [facility] Rx#: [id number] Vancomycin 1,750 mg In 500 100 Sodium Chloride 0.9% 500 ml 500 ml @ 167 mls/hr IVPB Q24H [facility] Rx#: [id number] Intake, IV Titration 25.354 32.557 Amount Dexmedetomidine/0.9% NaCl 25.354 32.557 (Pmx) 400 mcg In Empty Bag 1 bag @ Titrate IV . Q0M [facility] Rx#:[id number] Oral 1150 150 Output: Urine 4125 2875 1325 Uretheral (Petersen) 600 Other: Voiding Method Indwelling Catheter Indwelling Catheter Indwelling Catheter - Exam 63-year-old male arousable HEENT: Anicteric conjunctiva are pink and moist nasal mucosa grossly intact without significant lesions, there is no thrush. Neck: The neck is supple without significant lymphadenopathy or thyromegaly. Lungs:symmetrical bilateral air entry with crackles at the bases Heart: irregular with an audible S1 and S2 positive S4 no new murmur click or rub Abdomen: obese,Positive bowel sounds soft and nontender without palpable masses or organomegaly. There was no guarding or rebound. Extremities: The upper extremities have excellent pulses they are symmetric, no significant petechiae or telangiectasia. No splinter hemorrhages were noted. lower extremities evidence of some bilateral lower extremity edema, the left foot great toe plantar has evidence of the open ulceration measuring at 0.7 0.7 0.2 cm Neuro: patient is awake, recognizes observer, follows simple one-step commands without difficulty, however is not conversational. - Labs CBC & Chem 7: 07/10/18 04:46 07/10/18 04:46 Labs: Abnormal Lab Results - Last 24 Hours (Table) 07/09/18 07/09/18 07/10/18 Range/Units 17:03 20:34 04:46 WBC 11.6 H (3.8-10.6) k/uL RBC 2.80 L (4.30-5.90) m/uL Hgb 7.5 L (13.0-17.5) gm/dL Hct 24.1 L (39.0-53.0) % MCHC 30.9 L (31.0-37.0) g/dL RDW 15.9 H (11.5-15.5) % Neutrophils # 10.1 H (1.3-7.7) k/uL Lymphocytes # 0.6 L (1.0-4.8) k/uL Carbon Dioxide (22-30) mmol/L BUN (9-20) mg/dL Glucose (74-99) mg/dL POC Glucose (mg/dL) 213 H 288 H (75-99) mg/dL 07/10/18 07/10/18 07/10/18 Range/Units 04:46 06:59 07:05 WBC (3.8-10.6) k/uL RBC (4.30-5.90) m/uL Hgb (13.0-17.5) gm/dL Hct (39.0-53.0) % MCHC (31.0-37.0) g/dL RDW (11.5-15.5) % Neutrophils # (1.3-7.7) k/uL Lymphocytes # (1.0-4.8) k/uL Carbon Dioxide 32 H (22-30) mmol/L BUN 29 H (9-20) mg/dL Glucose 127 H (74-99) mg/dL POC Glucose (mg/dL) 145 H 142 H (75-99) mg/dL 07/10/18 07/10/18 Range/Units 09:51 11:26 WBC (3.8-10.6) k/uL RBC (4.30-5.90) m/uL Hgb (13.0-17.5) gm/dL Hct (39.0-53.0) % MCHC (31.0-37.0) g/dL RDW (11.5-15.5) % Neutrophils # (1.3-7.7) k/uL Lymphocytes # (1.0-4.8) k/uL Carbon Dioxide (22-30) mmol/L BUN (9-20) mg/dL Glucose (74-99) mg/dL POC Glucose (mg/dL) 114 H 105 H (75-99) mg/dL Microbiology - Last 24 Hours (Table) 07/09/18 01:30 Urine Culture - Final Urine,Voided 07/09/18 08:57 Blood Culture - Preliminary Blood No Growth after 24 hours Laboratory Results WBC 11.6 k/uL (3.8-10.6) H 07/10/18 04:46 RBC 2.80 m/uL (4.30-5.90) L 07/10/18 04:46 Hgb 7.5 gm/dL (13.0-17.5) L 07/10/18 04:46 Hct 24.1 % (39.0-53.0) L 07/10/18 04:46 MCV 86.2 fL (80.0-100.0) 07/10/18 04:46 MCH 26.7 pg (25.0-35.0) 07/10/18 04:46 MCHC 30.9 g/dL (31.0-37.0) L 07/10/18 04:46 RDW 15.9 % (11.5-15.5) H 07/10/18 04:46 Plt Count 305 k/uL (150-450) 07/10/18 04:46 Neutrophils % 87 % 07/10/18 04:46 Lymphocytes % 5 % 07/10/18 04:46 Monocytes % 6 % 07/10/18 04:46 Eosinophils % 1 % 07/10/18 04:46 Basophils % 0 % 07/10/18 04:46 Neutrophils # 10.1 k/uL (1.3-7.7) H 07/10/18 04:46 Lymphocytes # 0.6 k/uL (1.0-4.8) L 07/10/18 04:46 Monocytes # 0.7 k/uL (0-1.0) 07/10/18 04:46 Eosinophils # 0.1 k/uL (0-0.7) 07/10/18 04:46 Basophils # 0.0 k/uL (0-0.2) 07/10/18 04:46 Hypochromasia Marked 07/10/18 04:46 Poikilocytosis Slight 07/10/18 04:46 PT 12.8 sec (9.0-12.0) H 07/08/18 22:45 INR 1.2 (<1.2) H 07/08/18 22:45 APTT 33.1 sec (22.0-30.0) H 07/08/18 22:45 Sample Site lrad 07/09/18 07:23 ABG pH 7.43 (7.35-7.45) 07/09/18 07:23 ABG pCO2 47 mmHg (35-45) H 07/09/18 07:23 ABG pO2 58 mmHg (83-108) L* 07/09/18 07:23 ABG HCO3 31 mmol/L (21-25) H 07/09/18 07:23 ABG Total CO2 33 mmol/L (19-24) H 07/09/18 07:23 ABG O2 Saturation 92.6 % (94-97) L 07/09/18 07:23 ABG Base Excess 7.1 mmol/L 07/09/18 07:23 Yovany Test Yes 07/09/18 07:23 VBG pH 7.28 (7.31-7.41) L 07/08/18 23:15 VBG pCO2 73 mmHg (37-51) H* 07/08/18 23:15 VBG HCO3 33 mmol/L (24-28) H 07/08/18 23:15 FiO2 32 % 07/09/18 07:23 Sodium 141 mmol/L (137-145) 07/10/18 04:46 Potassium 4.0 mmol/L (3.5-5.1) 07/10/18 04:46 Chloride 101 mmol/L (98-107) 07/10/18 04:46 Carbon Dioxide 32 mmol/L (22-30) H 07/10/18 04:46 Anion Gap 8 mmol/L 07/10/18 04:46 BUN 29 mg/dL (9-20) H 07/10/18 04:46 Creatinine 1.11 mg/dL (0.66-1.25) 07/10/18 04:46 Est GFR (CKD-EPI)AfAm 82 (>60 ml/min/1.73 sqM) 07/10/18 04:46 Est GFR (CKD-EPI)NonAf 71 (>60 ml/min/1.73 sqM) 07/10/18 04:46 Glucose 127 mg/dL (74-99) H 07/10/18 04:46 POC Glucose (mg/dL) 105 mg/dL (75-99) H 07/10/18 11:26 POC Glu Clarification Operator ID 07/10/18 11:26 Plasma Lactic Acid Yury 0.9 mmol/L (0.7-2.0) 07/09/18 08:57 Calcium 8.6 mg/dL (8.4-10.2) 07/10/18 04:46 Phosphorus 2.5 mg/dL (2.5-4.5) 07/10/18 04:46 Magnesium 1.6 mg/dL (1.6-2.3) 07/10/18 04:46 Total Bilirubin 0.6 mg/dL (0.2-1.3) 07/08/18 22:45 AST 20 U/L (17-59) 07/08/18 22:45 ALT 40 U/L (21-72) 07/08/18 22:45 Alkaline Phosphatase 113 U/L (38-126) 07/08/18 22:45 Creatine Kinase 29 U/L (55-170) L 07/08/18 22:45 Troponin I <0.012 ng/mL (0.000-0.034) 07/08/18 22:45 NT-Pro-B Natriuret Pep 23122 pg/mL 07/10/18 04:46 Total Protein 6.4 g/dL (6.3-8.2) 07/08/18 22:45 Albumin 3.2 g/dL (3.5-5.0) L 07/08/18 22:45 Urine Color Light Yellow 07/09/18 08:12 Urine Appearance Clear (Clear) 07/09/18 08:12 Urine pH 5.5 (5.0-8.0) 07/09/18 08:12 Ur Specific [place] 1.009 (1.001-1.035) 07/09/18 08:12 Urine Protein Negative (Negative) 07/09/18 08:12 Urine Glucose (UA) Negative (Negative) 07/09/18 08:12 Urine Ketones Negative (Negative) 07/09/18 08:12 Urine Blood Negative (Negative) 07/09/18 08:12 Urine Nitrite Negative (Negative) 07/09/18 08:12 Urine Bilirubin Negative (Negative) 07/09/18 08:12 Urine Urobilinogen <2.0 mg/dL (<2.0) 07/09/18 08:12 Ur Leukocyte Esterase Negative (Negative) 07/09/18 08:12 Random Vancomycin 21.9 ug/mL 07/09/18 08:57 Urine Opiates Screen Not Detected (NotDetected) 07/08/18 01:30 Ur Oxycodone Screen Not Detected (NotDetected) 07/08/18 01:30 Urine Methadone Screen Not Detected (NotDetected) 07/08/18 01:30 Ur Propoxyphene Screen Not Detected (NotDetected) 07/08/18 01:30 Ur Barbiturates Screen Not Detected (NotDetected) 07/08/18 01:30 U Tricyclic Antidepress Not Detected (NotDetected) 07/08/18 01:30 Ur Phencyclidine Scrn Not Detected (NotDetected) 07/08/18 01:30 Ur Amphetamines Screen Not Detected (NotDetected) 07/08/18 01:30 U Methamphetamines Scrn Not Detected (NotDetected) 07/08/18 01:30 U Benzodiazepines Scrn Not Detected (NotDetected) 07/08/18 01:30 Urine Cocaine Screen Not Detected (NotDetected) 07/08/18 01:30 U Marijuana (THC) Screen Not Detected (NotDetected) 07/08/18 01:30 Microbiology 07/09/18 01:30 Urine,Voided Urine Culture - Final 07/09/18 08:57 Blood Blood Culture - Preliminary No Growth after 24 hours - Imaging and Cardiology Chest x-ray: report reviewed (improved bibasilar infiltrates) Assessment and Plan (1) Acute encephalopathy Current Visit: No Status: Acute Code(s): G93.40 - ENCEPHALOPATHY, UNSPECIFIED SNOMED Code(s): 47441171 (2) Hypercapnic respiratory failure Narrative/Plan: 63-year-old male presents to Hospital with altered mental status. Concerns to worsening pneumonia at admission. Receiving antibiotic therapy at this time based on these concerns with cefepime, also on vancomycin because of the underlying osteomyelitis to the left great toe. At this time cultures are pending and will continue current antibiotic therapy. However will likely de- escalate the cefepime rapidly if no further cultures are available and continues to have improvement of his pulmonary status with diuresis. Underlying volume overload appears to be occurring as a likely etiology of the bibasilar infiltrates. The patient's mental status is improving.Because of his improved ventilation and improvement of his respiratory failure. Local wound care will continue with the silver alginate to the left great toe ulceration. The coccyx ulceration was treated with theoptifoam dressing can be changed every 5 days and when necessary. He is already on the appropriate ICU air bed. Urine culture negative, blood culture negative so far. Chest x-ray improving infiltrates. Current Visit: Yes Status: Acute Code(s): J96.92 - RESPIRATORY FAILURE, UNSPECIFIED WITH HYPERCAPNIA SNOMED Code(s): 537826918
[2018-07-10 16:50] LABS: Glucose,Whole Blood 194 mg/dL (75-99)
[2018-07-10] MEDS: RIVAROXABAN 15 MG TAB PO SCH (17:36)
[2018-07-10] MEDS ORDERED: VANCOMYCIN TROUGH DUE 1 EACH MISC MISCELLANE ONE (20:00)
[2018-07-10 20:32] LABS: Glucose,Whole Blood 294 mg/dL (75-99)
[2018-07-10] MEDS: DIVALPROEX ER 250 MG TAB.ER.24H PO SCH (20:34)
[2018-07-10] MEDS: LACTOBACILLUS ACIDOPH & BULGAR 1 EACH PACKET PO SCH (20:34)
[2018-07-10] MEDS: VANCOMYCIN 1,750 MG in SODIUM CHLORIDE 0.9% 500 ML 500 ML IVPB SCH (21:47)
[2018-07-11 04:14] VITALS: TEMP 98.2
[2018-07-11] MEDS: SODIUM CHLORIDE 0.9% 1,000 ML IV SCH (04:14)
[2018-07-11 05:45] LABS: Basophils % (A) 0 %; Eosinophils # (A) 0.4 k/uL (0-0.7); Eosinophils % (A) 4 %; HCT 26.5 % (39.0-53.0); HGB 7.9 gm/dL (13.0-17.5); Hypochromasia Marked; Lymphocytes # (A) 1.2 k/uL (1.0-4.8); Lymphocytes % (A) 12 %; MCH 25.7 pg (25.0-35.0); MCHC 29.6 g/dL (31.0-37.0); MCV 86.6 fL (80.0-100.0); Mean Platelet Volume 7.5; Monocytes # (A) 0.8 k/uL (0-1.0); Monocytes % (A) 8 %; Neutrophils # (A) 7.3 k/uL (1.3-7.7); Neutrophils % (A) 74 %; Platelet Count 278 k/uL (150-450); Poikilocytosis Slight; RBC 3.06 m/uL (4.30-5.90); RDW 15.7 % (11.5-15.5); WBC 9.8 k/uL (3.8-10.6)
[2018-07-11 06:05] LABS: Anion Gap 4 mmol/L; Blood Urea Nitrogen 23 mg/dL (9-20); Calcium 8.4 mg/dL (8.4-10.2); Carbon Dioxide 37 mmol/L (22-30); Chloride 100 mmol/L (98-107); Glucose 63 mg/dL (74-99); Potassium 3.7 mmol/L (3.5-5.1); Sodium 141 mmol/L (137-145)
[2018-07-11 06:58] LABS: Glucose,Whole Blood 73 mg/dL (75-99)
[2018-07-11] MEDS ORDERED: Potassium Replacement Protocol 1 EACH MISC MISCELLANE PRN (07:02)
[2018-07-11] MEDS: IPRATROPIUM-ALBUTEROL 3 ML NEB INHALATION SCH ×3 (07:13→16:24)
--- NOTE | 2018-07-11 07:34 | PN ---
PROGRESS NOTE DATE OF SERVICE: 07/11/2018 This is a 63-year-old gentleman admitted with a diagnosis of acute hypoxemic respiratory failure secondary to healthcare acquired pneumonia. This also may relate to underlying aspiration pneumonia and COPD exacerbation. In addition, the patient likely has a component of systolic congestive heart failure with an echocardiogram showing a mildly reduced ejection fraction of 45%. 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 Currently, the patient is doing well. The BiPAP was not use last night. In fact, the night before he only used it for an hour, he could not tolerate it. The BiPAP will be discontinued from his room. He is currently on O2 at 3 L by nasal cannula and not receiving any IV fluids. His microbiologic studies are thus far negative. In my opinion, the patient is stable enough to be transferred to the general medical floor. He was sleepy this morning when we went into the room. He has no major complaints. He was obviously just waking up. Denies any pain or difficulty breathing. Temperature is 98.2, heart rate 72, respiratory rate 13, blood pressure 117/99, mean 105 and a 3 L saturation is 97%. Appears in no acute distress. HEENT examination is grossly unremarkable. Mucous membranes are dry. NECK: Supple. Full range of motion. No adenopathy or thyromegaly. Neck veins are flat. Cardiovascular examination reveals regular rhythm and rate. Heart rate in mid 70s. S1, S2 normal. There is no S3, S4, or murmur. Lungs reveal clear breath sounds. No wheezes or rhonchi. There is no crackles. He does not really take deep breaths. Abdomen is obese. Bowel sounds are heard. Extremities are intact. There is no cyanosis, clubbing, or edema. Skin without rash. Neurologic examination is brief but nonfocal. Microbiologic studies including urine and blood cultures are negative. Labs are reviewed. White count 9.8, hemoglobin 7.9, hematocrit 26.5, platelet count 278,000. Sodium 141, potassium 3.7, chloride 100, CO2 of 37, anion gap is 4. BUN and creatinine were 23 and 1.02. A chest x-ray did show some changes consistent with underlying mild fluid overload and possibly some pneumonia changes at the bases. An N terminal proBNP yesterday when ordered was very high at 13,700. Medications are reviewed. He is on a whole host of medications. He is currently on vancomycin and Maxipime. He is also getting Lasix 40 mg IV q.12 hours. Culture data was negative as I mentioned. ASSESSMENT: 1. Acute hypoxemic respiratory failure, multifactorial, in part related to possible underlying healthcare acquired pneumonia, possible aspiration pneumonia, possible chronic obstructive pulmonary disease exacerbation and also congestive heart failure. 2. Systolic congestive heart failure, with an echocardiogram showing a mildly reduced ejection fraction of 45%. 3. Chronic coccygeal deep ulcer with osteomyelitis of the left great toe. 4. Delirium, secondary to infection and hypoxemic respiratory failure. 5. History of coronary artery disease with previous stent placement. 6. Chronic obstructive pulmonary disease, stable. 7. Benign essential hypertension. 8. Type 2 diabetes mellitus. 9. Gastroesophageal reflux disease. 10.Degenerative joint disease. 11.History of depression/anxiety. 12.Chronic low back pain. PLAN: The patient's chest x-ray is consistent with fluid overload. Culture data so far is negative. We will likely discontinue the vancomycin. Will await for ID input on that. The patient is receiving Lasix 40 IV push q.12. The patient's underlying COPD is relatively stable. The rest of the medications are reviewed. His other antibiotic cefepime. His overall status has improved. He did not need a BiPAP last night. The patient will be transferred out to the general medical floor. Telemetry is not necessary. Additional recommendations and suggestions are forthcoming. Prognosis is guarded. He does remain on updrafts. We will continue to follow. MMODL / IJN: [id number] /
[2018-07-11 07:41] LABS: Glucose,Whole Blood 122 mg/dL (75-99)
[2018-07-11] MEDS: INSULIN ASPART (NovoLOG) 100 UNIT/ML VIAL SQ SCH ×2 (08:02→13:00)
--- NOTE | 2018-07-11 08:06 | XR ---
EXAMINATION TYPE: XR chest 1V DATE OF EXAM: 07/11/2018 COMPARISON: Prior chest x-ray 07/10/2018 HISTORY: Abnormal chest x-ray, hypercapnic with consolidation TECHNIQUE: frontal view of the chest is obtained on 2 images. FINDINGS: There is some improvement in aeration as compared to prior exam. There are overlying cardi ac leads. Heart size is stable. IMPRESSION: Improvement in aeration
[2018-07-11] MEDS: PANTOPRAZOLE 40 MG/10 ML VIAL IV SCH (08:28)
[2018-07-11] MEDS: METOPROLOL TARTRATE 50 MG TAB PO SCH (08:29)
[2018-07-11] MEDS: FUROSEMIDE 10 MG/ML 4 ML VIAL IV SCH (08:29)
[2018-07-11] MEDS: CITALOPRAM HYDROBROMIDE 20 MG TAB PO SCH (08:29)
[2018-07-11] MEDS: DULoxetine HCL 60 MG CAPSULE.DR PO SCH (08:29)
[2018-07-11] MEDS: PREGABALIN 75 MG CAP PO SCH (08:31)
[2018-07-11] MEDS: ISOSORBIDE MONONITRATE ER 30 MG TAB.ER.24H PO SCH (08:34)
[2018-07-11] MEDS: CLOPIDOGREL 75 MG TAB PO SCH (08:34)
[2018-07-11] MEDS: SIMETHICONE 80 MG CHEWABLE PO SCH ×2 (08:34→13:01)
[2018-07-11] MEDS: ALLOPURINOL 100 MG TAB PO SCH (08:34)
[2018-07-11] MEDS: TAMSULOSIN 0.4 MG CAP.ER.24H PO SCH (08:34)
[2018-07-11] MEDS: INSULIN DETEMIR (LEVEMIR) 100 UNIT/ML SYR SQ SCH (08:35)
[2018-07-11] MEDS ORDERED: VANCOMYCIN 1,500 MG in SODIUM CHLORIDE 0.9% 250 ML IVPB SCH (09:00)
[2018-07-11] MEDS ORDERED: POTASSIUM CHLORIDE ER 20 MEQ TAB.ER PO SCH (09:00)
[2018-07-11] MEDS: CEFEPIME 2 GM in SODIUM CHLORIDE 0.9% 100 ML IVPB SCH (09:06)
[2018-07-11 10:03] VITALS: BP 148/73
[2018-07-11] MEDS ORDERED: tPA (Alteplase) PER PHARMACY 1 EACH MISC MISCELLANE PRN (11:02)
[2018-07-11] MEDS ORDERED: ALTEPLASE 2 MG VIAL (CATHFLO) IV STA (11:05)
[2018-07-11] MEDS ORDERED: CALCIUM CARBONATE 500 MG CHEWABLE PO PRN (11:39)
[2018-07-11 11:56] LABS: Glucose,Whole Blood 220 mg/dL (75-99)
--- NOTE | 2018-07-11 12:55 | P.PN ---
Subjective Progress Note Date: 07/11/18 63 -year-old male well-known to the infectious disease service for his multiple Hospital physicians including the prior very large coccyx pressure ulceration with stage IV that has been well treated and generally resolved. Has had multiple hospitalizations with heart failure, depression and pne umonia.recently patient was hospitalized at this point without evidence of the osteomyelitis of the left great toe and has been at the rehab facility receiving intravenous antibiotic therapy with vancomycin for the isolated MRSA. Apparently the patient had acute worsening of his status. He became very short of breath and altered mental status and hypoxia consequently was transferred to our facility. Initial x-ray reveal evidence of some potential worsening of the bilateral infiltrates which on follow-up seems to be a bit better after he has diuresed. He is most aware BiPAP but is with noncompliance. At admission he had concerns to gram-negative pneumonia and constantly was brought to intensive care unit. Is receiving cefepime and vancomycin. His mental status is definitely improved. However he has required BiPAP intermittently and was on high flow oxygen several hours prior. Seems more stable at this time. Today the patient is further improved. His mentation is back to baseline. His respiratory status is improved. Receiving his breathing treatments without shortness of breath. Did not require BiPAP overnight. Is on 2 L nasal cannula. Is having no cough or sputum production. Hemodynamic stable. Objective - Vital Signs Vital signs: Vital Signs Temp 98.2 F 07/11/18 04:00 Pulse 80 07/11/18 10:57 Resp 22 07/11/18 10:00 BP 148/73 07/11/18 10:00 Pulse Ox 98 07/11/18 10:00 Intake & Output 07/10/18 07/11/18 07/11/18 18:59 06:59 18:59 Intake Total 443.765 800 420 Output Total 1600 1400 400 Balance -1156.235 -600 20 Weight 121.7 kg 121.9 kg 121.9 kg Intake: IV 400 700 Cefepime 2 gm In Sodium 200 Chloride 0.9% 100 ml @ 200 mls/hr IVPB ONCE ONE Rx#:[id number] Magnesium Sulfate-D5w Pmx 300 1 gm In Dextrose/Water 1 100ml.bag @ 100 mls/hr IVPB Q1H [facility] Rx#: [id number] Vancomycin 1,750 mg In 100 500 Sodium Chloride 0.9% 500 ml 500 ml @ 167 mls/hr IVPB Q24H [facility] Rx#: [id number] Intake, IV Titration 43.765 220 Amount Cefepime 2 gm In Sodium 200 Chloride 0.9% 100 ml @ 200 mls/hr IVPB Q12HR [facility] Rx#:[id number] Dexmedetomidine/0.9% NaCl 43.765 (Pmx) 400 mcg In Empty Bag 1 bag @ Titrate IV . Q0M [facility] Rx#:[id number] Sodium Chloride 0.9% 1, 20 000 ml @ 20 mls/hr IV . Q24H [facility] Rx#:[id number] Oral 100 200 Output: Urine 1600 1400 400 Other: Voiding Method Indwelling Catheter Indwelling Catheter Indwelling Catheter - Exam 63-year-old male arousable HEENT: Anicteric conjunctiva are pink and moist nasal mucosa grossly intact without significant lesions, there is no thrush. Neck: The neck is supple without significant lymphadenopathy or thyromegaly. Lungs:symmetrical bilateral air entry with crackles at the bases Heart: irregular with an audible S1 and S2 positive S4 no new murmur click or ru b Abdomen: obese,Positive bowel sounds soft and nontender without palpable masses or organomegaly. There was no guarding or rebound. Extremities: The upper extremities have excellent pulses they are symmetric, no significant petechiae or telangiectasia. No splinter hemorrhages were noted. lower extremities evidence of some bilateral lower extremity edema, the left foot great toe plantar has evidence of the open ulceration measuring at 0.7 0.7 0.2 cm The coccyx has the foam dressing in place without evidence of any drainage or open ulceration. Neuro: patient is awake, alert oriented to person place and time, knows he Observer by name. Was upper and lower extremities without difficulties. - Labs CBC & Chem 7: 07/11/18 05:20 07/11/18 05:20 Labs: Abnormal Lab Results - Last 24 Hours (Table) 07/09/18 07/10/18 07/10/18 Range/Units 07:59 16:48 20:31 RBC (4.30-5.90) m/uL Hgb (13.0-17.5) gm/dL Hct (39.0-53.0) % MCHC (31.0-37.0) g/dL RDW (11.5-15.5) % Carbon Dioxide (22-30) mmol/L BUN (9-20) mg/dL Glucose (74-99) mg/dL POC Glucose (mg/dL) 122 H 194 H 294 H (75-99) mg/dL 07/11/18 07/11/18 07/11/18 Range/Units 05:20 05:20 06:55 RBC 3.06 L (4.30-5.90) m/uL Hgb 7.9 L (13.0-17.5) gm/dL Hct 26.5 L (39.0-53.0) % MCHC 29.6 L (31.0-37.0) g/dL RDW 15.7 H (11.5-15.5) % Carbon Dioxide 37 H (22-30) mmol/L BUN 23 H (9-20) mg/dL Glucose 63 L (74-99) mg/dL POC Glucose (mg/dL) 73 L (75-99) mg/dL 07/11/18 Range/Units 11:52 RBC (4.30-5.90) m/uL Hgb (13.0-17.5) gm/dL Hct (39.0-53.0) % MCHC (31.0-37.0) g/dL RDW (11.5-15.5) % Carbon Dioxide (22-30) mmol/L BUN (9-20) mg/dL Glucose (74-99) mg/dL POC Glucose (mg/dL) 220 H (75-99) mg/dL Microbiology - Last 24 Hours (Table) 07/09/18 08:57 Blood Culture - Preliminary Blood No Growth after 48 hours 07/09/18 01:30 Urine Culture - Final Urine,Voided Assessment and Plan (1) Acute encephalopathy Current Visit: No Status: Acute Code(s): G93.40 - ENCEPHALOPATHY, UNSPECIFIED SNOMED Code(s): 07460671 (2) Hypercapnic respiratory failure Narrative/Plan: 63-year-old male presents to Hospital with altered mental status. Concerns to worsening pneumonia at admission. Receiving antibiotic therapy at this time based on these concerns with cefepime, also on vancomycin because of the underlying osteomyelitis to the left great toe. At this time cultures are pending and will continue current antibiotic therapy. However will likely de- escalate the cefepime rapidly if no further cultures are available and continues to have improvement of his pulmonary status with diuresis. Underlying volume overload appears to be occurring as a likely etiology of the bibasilar i nfiltrates. The patient's mental status is improving.Because of his improved ventilation and improvement of his respiratory failure. Local wound care will continue with the silver alginate to the left great toe ulceration. The coccyx ulceration was treated with the optifoam dressing can be changed every 5 days and when necessary. He is already on the appropriate ICU air bed. Urine culture negative, blood culture negative so far. Chest x-ray improving infiltrates. 07/11/2018 patient now considerably improved today mentation is nearly at baseline. Respiratory status is improved. Chest x-ray is improved. Patient does not appear to have pneumonia. We'll be able to de-escalate antibiotic therapy to complete his course of vancomycin on 07/16/2018. Nursing staff to evaluate his PICC line to ensure its functional. Continue to protect the coccyx area with the optifoam dressing and the silver alginate to the toe ulceration with offloading and good diabetes care. Current Visit: Yes Status: Acute Code(s): J96.92 - RESPIRATORY FAILURE, UNSPECIFIED WITH HYPERCAPNIA SNOMED Code(s): 867401575
--- NOTE | 2018-07-11 15:28 | DS ---
DISCHARGE SUMMARY DATE OF ADMISSION: 07/09/2018 DATE OF DISCHARGE: 07/11/2018 FINAL DIAGNOSES: 1. Acute metabolic encephalopathy and acute delirium from acute renal failure. 2. Chronic congestive heart failure from systolic and diastolic dysfunction, ejection fraction 45%-50%. 3. Left big toe distal acute osteomyelitis for which patient is on 6 weeks of IV antibiotics to finish vancomycin on 07/16/18. The wound is on the plantar aspect of the left distal big toe. 4. Acute renal failure, component of prerenal contributing to acute delirium. 5. Coronary artery disease with prior history of stent in the circumflex. 6. Chronic obstructive pulmonary disease in an ex-smoker. 7. Diabetes mellitus type 2, chronically on insulin. 8. Gastroesophageal reflux disease. 9. Hyperlipidemia. 10.Essential hypertension. 11.Primary osteoarthritis. 12.Peripheral artery disease with stent. 13.History of amputation right big toe. 14.Sacral wound, chronically healed. 15.Depression and anxiety, not otherwise specified. 16.Chronic low back pain from arthritis, being followed by Dr. Cortez. HOSPITAL COURSE: Patient presented with acute renal failure. Creatinine is up to 1.9. Patient's Lasix was held. Vancomycin dose was adjusted. Renal function improved down to 1.02 before discharge. Patient is acutely delirious and encephalopathy which improved. Patient is not felt to have pneumonia. PICC line was plugged and opened up with tPA. Discussed with Dr. Mujica today. Patient's antibiotic will finish up on 07/16/2018. Left big toe wound on the plantar aspects is healing well. Also patient has sacral decubitus wound, which has healed well. Care was discussed with the patient. Questions were answered. Patient was admitted to the ICU. Discussion and discharge planning more than 35 minutes. PHYSICAL EXAMINATION: Afebrile, pulse 87, respiration 22, blood pressure 140/73 pulse ox 98% on 3 L. LUNGS: Fair entry. CARDIOVASCULAR: First and second sounds are normal. PSYCH: Alert and oriented x3. INVESTIGATIONS: White count 9.8, hemoglobin 7.9, potassium 3.7, BUN 23, creatinine 1.02. DISCHARGE MEDICATIONS: 1. Iron 325 p.o. daily. 2. Vitamin D3 one thousand units p.o. daily. 3. Imdur ER 30 mg daily. 4. Cozaar 25 mg p.o. daily. 5. ProAir 1-2 puffs q.6 p.r.n. 6. Lactobacilli 3 tablets p.o. q.h.s. 7. Plavix 75 mg p.o. daily. 8. Xarelto 50 mg p.o. with supper. 9. Allopurinol 100 mg p.o. daily. 10.Lopressor 100 mg p.o. b.i.d. 11.Flomax 0.4 mg p.o. daily. 12.Depakote ER 250 mg q.h.s. 13.NovoLog per scale a.c., t.i.d. 14.Nitrostat 0.4 sublingual q.5 p.r.n. 15.Mysoline 280 mg p.o. q.i.d. 16.Ventolin nebulizer 2.5 q.6 p.r.n. 17.Celexa 20 mg p.o. daily. 18.Insulin Lantus 30 units subcu daily. 19.Cymbalta 20 mg p.o. daily. 20.Omeprazole 20 mg p.o. daily. 21.Xanax 0.25 p.o. q.12 p.r.n. 22.Lasix 40 mg p.o. daily. 23.DuoNeb q.i.d. 24.Lyrica 150 mg p.o. b.i.d. 25.Vancomycin 250 mg IV piggyback q.12 fourteen bags. 26.OxyContin 10 mg q.6 p.r.n. 27.OxyContin 40 mg q.12. Wound care to continue as before. DISPOSITION: [facility]. FOLLOWUP: Follow up with Dr. Naqvi at the [facility]. Discussion and discharge planning more than 35 minutes. CONSULTATION: Dr. Bergeron from Critical Care; Dr. Mujica, Infectious Disease. MMODL / IJN: [id number] /
[2018-07-11] MEDS: ALPRAZolam 0.25 MG TAB PO PRN (16:24)
[2018-07-11 16:32] VITALS: RESP 18
[2018-07-11 16:36] VITALS: PULSE 87
== END 2018-07-11 16:59 | DRG 189 ==
LOC: EC 21:12 → 4SSUR 07-09 03:01 → 2SICU 07-09 07:39
PROVIDERS: ADMIT Hospitalist; ATTEND Hospitalist
PROC: 5A09357 Assistance with Respiratory Ventilation, Less than 24 Consecutive Hours, Continuous Positive Airway Pressure (ICD-10-PCS; principal; 2018-07-09)
DX: J96.01 Acute respiratory failure with hypoxia (principal); G93.41 Metabolic encephalopathy; N17.9 Acute kidney failure, unspecified; I50.42 Chronic combined systolic (congestive) and diastolic (congestive) heart failure; M86.179 Other acute osteomyelitis, unspecified ankle and foot; J96.02 Acute respiratory failure with hypercapnia; L89.152 Pressure ulcer of sacral region, stage 2; E11.42 Type 2 diabetes mellitus with diabetic polyneuropathy; E11.51 Type 2 diabetes mellitus with diabetic peripheral angiopathy without gangrene; E11.621 Type 2 diabetes mellitus with foot ulcer; I11.0 Hypertensive heart disease with heart failure; L97.529 Non-pressure chronic ulcer of other part of left foot with unspecified severity; B95.62 Methicillin resistant Staphylococcus aureus infection as the cause of diseases classified elsewhere; E78.5 Hyperlipidemia, unspecified; F32.9 Major depressive disorder, single episode, unspecified; F41.9 Anxiety disorder, unspecified; G89.29 Other chronic pain; I25.10 Atherosclerotic heart disease of native coronary artery without angina pectoris; I25.2 Old myocardial infarction; K21.9 Gastro-esophageal reflux disease without esophagitis; L40.9 Psoriasis, unspecified; M10.9 Gout, unspecified; R00.1 Bradycardia, unspecified; M16.0 Bilateral primary osteoarthritis of hip; M47.9 Spondylosis, unspecified; J44.9 Chronic obstructive pulmonary disease, unspecified; R45.1 Restlessness and agitation; R41.0 Disorientation, unspecified; E66.9 Obesity, unspecified; Z68.38 Body mass index [BMI] 38.0-38.9, adult; Z99.81 Dependence on supplemental oxygen; Z79.01 Long term (current) use of anticoagulants; Z79.02 Long term (current) use of antithrombotics/antiplatelets; Z79.4 Long term (current) use of insulin; Z79.899 Other long term (current) drug therapy; Z79.891 Long term (current) use of opiate analgesic; Z86.711 Personal history of pulmonary embolism; Z86.73 Personal history of transient ischemic attack (TIA), and cerebral infarction without residual deficits; Z87.891 Personal history of nicotine dependence; Z89.411 Acquired absence of right great toe; Z89.421 Acquired absence of other right toe(s); Z95.5 Presence of coronary angioplasty implant and graft; Z86.718 Personal history of other venous thrombosis and embolism; Z87.11 Personal history of peptic ulcer disease; Z91.19 Patient's noncompliance with other medical treatment and regimen; Z87.01 Personal history of pneumonia (recurrent); Z82.49 Family history of ischemic heart disease and other diseases of the circulatory system; Z80.8 Family history of malignant neoplasm of other organs or systems
CPT/HCPCS: 36415; 36600; 70450; 71045; 71046; 80048; 80053; 80202; 80306; 81003; 82550; 82803; 82805; 83605; 83735; 83880; 84100; 84484; 85025; 85610; 85730; 87040; 87086; 93005; 94640; 94660; 96361; 96365; 96366; 96375; 99285

== ENCOUNTER 2018-07-16 19:14 | Inpatient (IN) | payer MEDICARE ==
[2018-07-16 19:21] LABS: Glucose,Whole Blood 138 mg/dL (75-99)
[2018-07-16] MEDS ORDERED: SODIUM CHLORIDE 0.9% 500 ML 500 ML IV STA (19:37)
[2018-07-16] MEDS ORDERED: SODIUM CHLORIDE 0.9% 1,000 ML IV STA (19:37)
--- NOTE | 2018-07-16 20:27 | ED ---
General Adult HPI - General Chief complaint: Shortness of Breath Stated complaint: Lethargy Time Seen by Provider: 07/16/18 19:18 Source: patient, RN notes reviewed, old records reviewed Mode of arrival: EMS Limitations: altered mental status - History of Present Illness Initial comments: 63-year-old male present spurs from today for altered mental status and lethargy. Patient was found by nursing staff at [facility] without oxygen on. He was lethargic. Patient was sent here for further evaluation. Patient is a poor historian as he is very somnolent on examination. Patient states that his body hurts. He complains of difficulty breathing. Patient denies any recent fever, chills, shortness of breath, chest pain, back pain, abdominal pain, nausea vomiting, numbness or tingling, dysuria or hematuria, constipation or diarrhea, headaches or visual changes, or any other current symptoms - Related Data Home Medications Medication Instructions Recorded Confirmed Ferrous Sulfate [Iron (65 MG 325 mg PO DAILY 04/05/17 07/09/18 Elemental)] Cholecalciferol [Vitamin D3] 1,000 unit PO DAILY 09/19/17 07/09/18 Isosorbide Mononitrate ER [Imdur] 30 mg PO DAILY 09/19/17 07/09/18 Losartan [Cozaar] 25 mg PO DAILY 09/19/17 07/09/18 Albuterol Sulfate [Proair Hfa] 1 - 2 puff INHALATION RT-Q6H PRN 09/26/17 07/09/18 Lactobacillus Acidophilus 3 tab PO HS 09/26/17 07/09/18 [Acidophilus] Metoprolol Tartrate [Lopressor] 100 mg PO BID@0800,1600 02/14/18 07/09/18 Tamsulosin HCl [Flomax] 0.4 mg PO DAILY 02/14/18 07/09/18 INSULIN ASPART (NovoLOG) [NovoLOG See Protocol SQ AC-TID 06/02/18 07/09/18 (formulary)] Nitroglycerin Sl Tabs [Nitrostat] 0.4 mg SUBLINGUAL Q5M PRN 06/02/18 07/09/18 Albuterol Nebulized [Ventolin 2.5 mg INHALATION RT-Q6H PRN 06/26/18 07/09/18 Nebulized] Citalopram Hydrobromide [CeleXA] 20 mg PO DAILY@0800 06/26/18 07/09/18 DULoxetine HCL [Cymbalta] 60 mg PO DAILY 07/09/18 07/09/18 Omeprazole 20 mg PO DAILY 07/09/18 07/09/18 Previous Rx's Medication Instructions Recorded Clopidogrel [Plavix] 75 mg PO DAILY #30 tab 09/28/17 Rivaroxaban [Xarelto] 15 mg PO W/SUPPER #30 tab 09/28/17 Allopurinol [Zyloprim] 100 mg PO DAILY #30 tablet 11/15/17 Divalproex ER [Depakote ER] 250 mg PO HS #30 tab.er.24h 02/27/18 Simethicone Chew [Mylicon Chew] 80 mg PO QID chew 06/10/18 ALPRAZolam [Xanax] 0.25 mg PO Q12H PRN #6 tab 07/11/18 Furosemide [Lasix] 40 mg PO DAILY #1 tablet 07/11/18 Insulin Glargine,Hum.rec.anlog 30 unit SQ DAILY #0 07/11/18 [Toujeo Solostar] Ipratropium-Albuterol Nebulize 3 ml INHALATION RT-QID ampul.neb 07/11/18 [Duoneb 0.5 mg-3 mg/3 ml Soln] Pregabalin [Lyrica] 150 mg PO BID #6 capsule 07/11/18 Vancomycin 1,250 mg IVPB Q12HR #14 bag 07/11/18 oxyCODONE HCL [OxyCONTIN] 10 mg PO Q6H PRN #12 tab.er.12h 07/11/18 oxyCODONE HCL [OxyCONTIN] 40 mg PO Q12H #6 tab.er.12h 07/11/18 Allergies Allergy/AdvReac Type Severity Reaction Status Date / Time No Known Allergies Allergy Verified 07/09/18 08:25 Review of Systems ROS Statement: Those systems with pertinent positive or pertinent negative responses have been documented in the HPI. ROS Other: All systems not noted in ROS Statement are negative. Past Medical History Past Medical History: Coronary Artery Disease (CAD), Heart Failure, COPD, CVA/TIA, Diabetes Mellitus, Deep Vein Thrombosis (DVT), GERD/Reflux, Hyperlipidemia, Hypertension, Myocardial Infarction (MA), Osteoarthritis (OA), Pneumonia, Pulmonary Embolus (PE), Skin Disorder, Vascular Disorder Additional Past Medical History / Comment(s): Pt recently admitted to [facility] on 06/05/18 with L great toe distal phalanx acute osteomylitis-now at [facility] for ABX thru Picc line. Other Hx: IDDM type II, neuropathy bilateral feet/legs/arms and hands, recently treated at [facility] for L great toe ulcer, January 2018 pt states was in coma/vented at [facility] d/t R 2nd toe infection, healed sacral ulcer, PVD,PAD, pt states he has been wearing oxygen ATC 3-4 L/NC, arthritis in low back and bilateral hips, chronic low back pain, gout, TIA x2, 2013 fall with brain bleed, gastric ulcer, psoriasis. Last Myocardial Infarction Date:: 08/2017 History of Any Multi-Drug Resistant Organisms: MRSA Date of last positivie culture/infection: 06/04/18 MDRO Source:: FOOT Past Surgical History: Heart Catheterization With Stent, Orthopedic Surgery, Tonsillectomy Additional Past Surgical History / Comment(s): Multiple cardiac caths and PCI with stents, L leg has 2 stents, L/R great toe debridements, 2nd R toe amp, bunionectomy-cannot recall laterality, bilateral rotator cuff surgery, colonoscopy, PICC line. Past Anesthesia/Blood Transfusion Reactions: Motion Sickness Additional Past Anesthesia/Blood Transfusion Reaction / Comment(s): pt stated has had a blood transfusion in past-no known reaction Date of Last Stent Placement:: 2016 Past Psychological History: Anxiety Smoking Status: Former smoker Past Alcohol Use History: None Reported Past Drug Use History: None Reported - Past Family History Mother Family Medical History: Cancer, Coronary Artery Disease (CAD), Myocardial Infarction (MA) Additional Family Medical History / Comment(s): Mother had brain cancer. She at the age of 53 yrs from a MA Father Family Medical History: Coronary Artery Disease (CAD), Myocardial Infarction (MA) Additional Family Medical History / Comment(s): Father of a MA at the age of 63 yrs. General Exam - General Exam Comments Initial Comments: 63-year-old male. Patient is confused. Patient is very somnolent and will answer a few questions and not off during conversation. Limitations: altered mental status General appearance: alert, in no apparent distress Head exam: Present: atraumatic, normocephalic, normal inspection Eye exam: Present: normal appearance, PERRL, EOMI. Absent: scleral icterus, conjunctival injection, periorbital swelling ENT exam: Present: normal exam, mucous membranes moist Neck exam: Present: normal inspection. Absent: tenderness, meningismus, lymphadenopathy Respiratory exam: Present: decreased breath sounds, other. Absent: normal lung sounds bilaterally, respiratory distress, wheezes, rales, rhonchi, stridor Cardiovascular Exam: Present: regular rate, normal rhythm, normal heart sounds. Absent: systolic murmur, diastolic murmur, rubs, gallop, clicks GI/Abdominal exam: Present: soft, normal bowel sounds, other (contusion over abdomen). Absent: distended, tenderness, guarding, rebound, rigid Extremities exam: Present: normal inspection, full ROM, normal capillary refill. Absent: tenderness, pedal edema, joint swelling, calf tenderness Back exam: Present: normal inspection Neurological exam: Present: alert, oriented X3, CN II-XII intact Psychiatric exam: Present: normal affect, normal mood Skin exam: Present: warm, dry, intact, normal color. Absent: rash Course Vital Signs 07/16/18 07/16/18 07/16/18 19:19 19:20 19:30 Temperature 98.0 F Pulse Rate 64 53 L Respiratory 20 15 Rate Blood Pressure 106/73 106/73 O2 Sat by Pulse 100 99 100 Oximetry 07/16/18 07/16/18 07/16/18 19:40 19:50 20:00 Temperature Pulse Rate 57 L 57 L 56 L Respiratory 12 12 12 Rate Blood Pressure 106/73 106/73 106/73 O2 Sat by Pulse 86 L Oximetry 07/16/18 07/16/18 07/16/18 20:10 20:20 20:30 Temperature Pulse Rate 59 L 57 L 54 L Respiratory 12 12 12 Rate Blood Pressure 106/73 106/73 106/73 O2 Sat by Pulse Oximetry 07/16/18 07/16/18 07/16/18 20:40 20:50 21:00 Temperature Pulse Rate 57 L 56 L 58 L Respiratory 12 12 12 Rate Blood Pressure 106/73 121/72 121/72 O2 Sat by Pulse 100 100 Oximetry 03/07/16/18 07/16/18 21:10 21:20 21:30 Temperature Pulse Rate 54 L 61 54 L Respiratory 13 13 12 Rate Blood Pressure 130/76 123/61 123/61 O2 Sat by Pulse 100 96 88 L Oximetry 07/16/18 07/16/18 07/16/18 21:40 21:50 22:00 Temperature 97.7 F Pulse Rate 53 L 56 L 55 L Respiratory 12 12 12 Rate Blood Pressure 110/78 113/62 113/62 O2 Sat by Pulse 97 98 98 Oximetry 07/16/18 22:30 Temperature Pulse Rate 56 L Respiratory 12 Rate Blood Pressure 111/50 O2 Sat by Pulse 97 Oximetry EKG Findings - EKG Comments: EKG Findings:: Normal sinus rhythm with right axis deviation. Borderline EKG. Ventricular rate of 64 bpm. : 42 ms picture laceration 80 ms. QT QTc is 442/455 ms. Medical Decision Making - Medical Decision Making Patient is a 63-year-old male who presents emergency department from extended care facility with concerns for lethargy and affect are as follows his oxygen off. History of CHF and COPD. At this time Patient has very somnolent. Poor historian. He would answer a few questions and follow back asleep. Patient previously has had hypercapnia causing similar symptoms. Patient's ABG show significant elevation of CO2 of this. Started on BiPAP. Chest x-ray shows evidence of pulmonary edema. White blood cell count is 13.0. Hemoglobin 8.9. Potassium of 5.4. Sodium of 140. BUN of 33. Creatinine of 1.58. Patient has an elevated troponin 0.046. BNP is elevated at 14,500.He is given a dose of Lasix and started on nitro paste for CHF. She was started on heparin. Patient's x-ray appears worse than his previous. Hemoglobin is 8.9. No significant change from last labs. - Lab Data Result diagrams: 07/16/18 20:55 07/16/18 20:55 Lab Results 07/16/18 07/16/18 07/16/18 Range/Units 19:19 20:42 20:55 WBC 13.0 H (3.8-10.6) k/uL RBC 3.45 L (4.30-5.90) m/uL Hgb 8.9 L (13.0-17.5) gm/dL Hct 30.5 L (39.0-53.0) % MCV 88.4 (80.0-100.0) fL MCH 25.8 (25.0-35.0) pg MCHC 29.2 L (31.0-37.0) g/dL RDW 15.9 H (11.5-15.5) % Plt Count 307 (150-450) k/uL Neutrophils % 82 % Lymphocytes % 8 % Monocytes % 7 % Eosinophils % 2 % Basophils % 0 % Neutrophils # 10.7 H (1.3-7.7) k/uL Lymphocytes # 1.0 (1.0-4.8) k/uL Monocytes # 0.9 (0-1.0) k/uL Eosinophils # 0.2 (0-0.7) k/uL Basophils # 0.1 (0-0.2) k/uL Hypochromasia Marked Anisocytosis Slight PT (9.0-12.0) sec INR (<1.2) APTT (22.0-30.0) sec Sample Site r rad ABG pH 7.28 L (7.35-7.45) ABG pCO2 78 H* (35-45) mmHg ABG pO2 110 H (83-108) mmHg ABG HCO3 37 H (21-25) mmol/L ABG Total CO2 39 H (19-24) mmol/L ABG O2 Saturation 98.3 H (94-97) % ABG Base Excess 10.2 mmol/L Yovany Test Yes FiO2 36 % Sodium (137-145) mmol/L Potassium (3.5-5.1) mmol/L Chloride (98-107) mmol/L Carbon Dioxide (22-30) mmol/L Anion Gap mmol/L BUN (9-20) mg/dL Creatinine (0.66-1.25) mg/dL Est GFR (CKD-EPI)AfAm (>60 ml/min/1.73 sqM) Est GFR (CKD-EPI)NonAf (>60 ml/min/1.73 sqM) Glucose (74-99) mg/dL POC Glucose (mg/dL) 138 H (75-99) mg/dL POC Glu [employer] ID Marge De Anda Calcium (8.4-10.2) mg/dL Magnesium (1.6-2.3) mg/dL Total Bilirubin (0.2-1.3) mg/dL AST (17-59) U/L ALT (21-72) U/L Alkaline Phosphatase (38-126) U/L Troponin I (0.000-0.034) ng/mL NT-Pro-B Natriuret Pep pg/mL Total Protein (6.3-8.2) g/dL Albumin (3.5-5.0) g/dL 07/16/18 07/16/18 07/16/18 Range/Units 20:55 20:55 20:55 WBC (3.8-10.6) k/uL RBC (4.30-5.90) m/uL Hgb (13.0-17.5) gm/dL Hct (39.0-53.0) % MCV (80.0-100.0) fL MCH (25.0-35.0) pg MCHC (31.0-37.0) g/dL RDW (11.5-15.5) % Plt Count (150-450) k/uL Neutrophils % % Lymphocytes % % Monocytes % % Eosinophils % % Basophils % % Neutrophils # (1.3-7.7) k/uL Lymphocytes # (1.0-4.8) k/uL Monocytes # (0-1.0) k/uL Eosinophils # (0-0.7) k/uL Basophils # (0-0.2) k/uL Hypochromasia Anisocytosis PT 14.4 H (9.0-12.0) sec INR 1.4 H (<1.2) APTT 29.3 (22.0-30.0) sec Sample Site ABG pH (7.35-7.45) ABG pCO2 (35-45) mmHg ABG pO2 (83-108) mmHg ABG HCO3 (21-25) mmol/L ABG Total CO2 (19-24) mmol/L ABG O2 Saturation (94-97) % ABG Base Excess mmol/L Yovany Test FiO2 % Sodium 140 (137-145) mmol/L Potassium 5.4 H (3.5-5.1) mmol/L Chloride 101 (98-107) mmol/L Carbon Dioxide 34 H (22-30) mmol/L Anion Gap 5 mmol/L BUN 33 H (9-20) mg/dL Creatinine 1.58 H (0.66-1.25) mg/dL Est GFR (CKD-EPI)AfAm 53 (>60 ml/min/1.73 sqM) Est GFR (CKD-EPI)NonAf 46 (>60 ml/min/1.73 sqM) Glucose 122 H (74-99) mg/dL POC Glucose (mg/dL) (75-99) mg/dL POC Glu [employer] ID Calcium 9.1 (8.4-10.2) mg/dL Magnesium 2.0 (1.6-2.3) mg/dL Total Bilirubin 0.8 (0.2-1.3) mg/dL AST 19 (17-59) U/L ALT 32 (21-72) U/L Alkaline Phosphatase 80 (38-126) U/L Troponin I (0.000-0.034) ng/mL NT-Pro-B Natriuret Pep 33302 pg/mL Total Protein 6.2 L (6.3-8.2) g/dL Albumin 3.1 L (3.5-5.0) g/dL 07/16/18 Range/Units 20:55 WBC (3.8-10.6) k/uL RBC (4.30-5.90) m/uL Hgb (13.0-17.5) gm/dL Hct (39.0-53.0) % MCV (80.0-100.0) fL MCH (25.0-35.0) pg MCHC (31.0-37.0) g/dL RDW (11.5-15.5) % Plt Count (150-450) k/uL Neutrophils % % Lymphocytes % % Monocytes % % Eosinophils % % Basophils % % Neutrophils # (1.3-7.7) k/uL Lymphocytes # (1.0-4.8) k/uL Monocytes # (0-1.0) k/uL Eosinophils # (0-0.7) k/uL Basophils # (0-0.2) k/uL Hypochromasia Anisocytosis PT (9.0-12.0) sec INR (<1.2) APTT (22.0-30.0) sec Sample Site ABG pH (7.35-7.45) ABG pCO2 (35-45) mmHg ABG pO2 (83-108) mmHg ABG HCO3 (21-25) mmol/L ABG Total CO2 (19-24) mmol/L ABG O2 Saturation (94-97) % ABG Base Excess mmol/L Yovany Test FiO2 % Sodium (137-145) mmol/L Potassium (3.5-5.1) mmol/L Chloride (98-107) mmol/L Carbon Dioxide (22-30) mmol/L Anion Gap mmol/L BUN (9-20) mg/dL Creatinine (0.66-1.25) mg/dL Est GFR (CKD-EPI)AfAm (>60 ml/min/1.73 sqM) Est GFR (CKD-EPI)NonAf (>60 ml/min/1.73 sqM) Glucose (74-99) mg/dL POC Glucose (mg/dL) (75-99) mg/dL POC Glu [employer] ID Calcium (8.4-10.2) mg/dL Magnesium (1.6-2.3) mg/dL Total Bilirubin (0.2-1.3) mg/dL AST (17-59) U/L ALT (21-72) U/L Alkaline Phosphatase (38-126) U/L Troponin I 0.046 H* (0.000-0.034) ng/mL NT-Pro-B Natriuret Pep pg/mL Total Protein (6.3-8.2) g/dL Albumin (3.5-5.0) g/dL - Radiology Data Radiology results: report reviewed Chest x-ray shows congestive heart failure and pulmonary edema slightly worse on last exam. Critical Care Time Critical Care Time: Yes (30) Total Critical Care Time: 30 Critical Care Time: Greater than 30 minutes of critical care time was used to manage patient's care with assessing Patient and concerns for his respiratory status and somnolence. ABG was completed and is found to be hypercapnic. Placed on BiPAP. Patient lab work shows elevation of troponin and BNP. He was initiated on heparin for an STEMI. Time was spent coordinating care with patient specialist. Disposition Clinical Impression: Hypercapnic respiratory failure, Dyspnea, NSTEMI (non-ST elevated myocardial infarction), CHF exacerbation, Change in mental status, Renal insufficiency, Leukocytosis Disposition: ADMITTED IP TO THIS HOSP Condition: Stable Is patient prescribed a controlled substance at d/c from ED?: No Referrals: Tr Naqvi DO [Primary Care Provider] - 1-2 days Time of Disposition: 23:24
[2018-07-16 20:46] LABS: ABG Base Excess 10.2 mmol/L; ABG HCO3 37 mmol/L (21-25); ABG Oxygen Saturation 98.3 % (94-97); ABG PH 7.28 (7.35-7.45); ABG PO2 110 mmHg (83-108); ABG TCO2 39 mmol/L (19-24)
[2018-07-16 20:48] LABS: ABG PCO2 78 mmHg (35-45)
--- NOTE | 2018-07-16 21:13 | XR ---
EXAMINATION TYPE: XR chest 1V DATE OF EXAM: 07/16/2018 COMPARISON: 07/11/2018 HISTORY: Short of breath TECHNIQUE: Single frontal view of the chest is obtained. FINDINGS: There is pulmonary edema. Heart is enlarged. There is slight blunting of costophrenic angl es. There are chest leads. IMPRESSION: Congestive heart failure and pulmonary edema slightly worse than last exam.
[2018-07-16 21:15] LABS: Anisocytosis Slight
[2018-07-16 21:25] LABS: INR 1.4 (<1.2); Partial Thromboplastin Time 29.3 sec (22.0-30.0); Prothrombin Time 14.4 sec (9.0-12.0)
[2018-07-16 21:27] LABS: Albumin 3.1 g/dL (3.5-5.0); Calcium 9.1 mg/dL (8.4-10.2); Potassium 5.4 mmol/L (3.5-5.1); Total Bilirubin 0.8 mg/dL (0.2-1.3); Total Protein 6.2 g/dL (6.3-8.2)
[2018-07-16 21:40] LABS: Basophils # (A) 0.1 k/uL (0-0.2); Basophils % (A) 0 %; Eosinophils # (A) 0.2 k/uL (0-0.7); Eosinophils % (A) 2 %; HCT 30.5 % (39.0-53.0); HGB 8.9 gm/dL (13.0-17.5); Hypochromasia Marked; Lymphocytes % (A) 8 %; MCH 25.8 pg (25.0-35.0); MCHC 29.2 g/dL (31.0-37.0); MCV 88.4 fL (80.0-100.0); Mean Platelet Volume 7.3; Monocytes # (A) 0.9 k/uL (0-1.0); Monocytes % (A) 7 %; Neutrophils # (A) 10.7 k/uL (1.3-7.7); Neutrophils % (A) 82 %; Platelet Count 307 k/uL (150-450); RBC 3.45 m/uL (4.30-5.90); RDW 15.9 % (11.5-15.5)
[2018-07-16] MEDS ORDERED: FUROSEMIDE 10 MG/ML 4 ML VIAL IV STA (22:13)
[2018-07-16] MEDS ORDERED: NITROGLYCERIN SL TABS 0.4 MG TAB SUBLINGUAL PRN (23:16)
[2018-07-16] MEDS ORDERED: ASPIRIN 81 MG PO STA (23:16)
[2018-07-16] MEDS ORDERED: HEPARIN SODIUM,PORCINE 5,000 UNIT/ML 1 ML VIAL IV ONE (23:16)
[2018-07-16] MEDS ORDERED: HEPARIN SOD,PORK IN 0.45% NACL 25,000 UNIT in 0.45% NACL 1 250ML.BAG IV SCH (23:30)
[2018-07-16] MEDS: FUROSEMIDE 10 MG/ML 4 ML VIAL IV SCH (23:59)
[2018-07-17 06:55] LABS: Cholesterol 127 mg/dL (<200); HDL Cholesterol 16 mg/dL (40-60); LDL Cholesterol,Calculated 87 mg/dL (0-99); Triglycerides 120 mg/dL (<150)
[2018-07-17] MEDS: FUROSEMIDE 10 MG/ML 4 ML VIAL IV SCH ×2 (07:04→10:35)
[2018-07-17] MEDS ORDERED: HEPARIN SODIUM,PORCINE 5,000 UNIT/ML 1 ML VIAL IV STA (07:49)
[2018-07-17] MEDS ORDERED: ASPIRIN 325 MG TAB PO SCH (09:00)
[2018-07-17] MEDS: NITROGLYCERIN OINT 1 INCH/GM PACKET TOPICAL SCH ×2 (10:35→13:45)
[2018-07-17] MEDS ORDERED: ALBUTEROL NEBULIZED 2.5 MG/3 ML INHALATION PRN ×2 (10:57)
[2018-07-17] MEDS ORDERED: NITROGLYCERIN SL TABS 0.4 MG TAB SUBLINGUAL PRN (10:57)
[2018-07-17] MEDS ORDERED: RIVAROXABAN 15 MG TAB PO STA (11:22)
[2018-07-17] MEDS: CLOPIDOGREL 75 MG TAB PO SCH (11:41)
[2018-07-17 11:55] LABS: Glucose,Whole Blood 142 mg/dL (75-99)
[2018-07-17] MEDS: INSULIN DETEMIR (LEVEMIR) 100 UNIT/ML SYR SQ SCH ×2 (12:03→21:51)
[2018-07-17] MEDS: oxyCODONE ER 10 MG TAB.ER.12H PO PRN (12:04)
[2018-07-17] MEDS: PANTOPRAZOLE 40 MG TABLET PO SCH (12:05)
[2018-07-17] MEDS: PREGABALIN 75 MG CAP PO SCH ×2 (12:05→21:51)
[2018-07-17] MEDS: DULoxetine HCL 60 MG CAPSULE.DR PO SCH (12:05)
[2018-07-17] MEDS: ISOSORBIDE MONONITRATE ER 30 MG TAB.ER.24H PO SCH (12:05)
[2018-07-17] MEDS: IPRATROPIUM-ALBUTEROL 3 ML NEB INHALATION SCH ×3 (12:28→20:27)
--- NOTE | 2018-07-17 12:46 | CONS ---
CONSULTATION Jeremiah Pedroza is a 63-year-old gentleman with type 2 diabetes, hypertension, hyperlipidemia, peripheral artery disease, and more importantly CAD. I see him in the office on a regular basis. Starting from 2006 onwards, I have been performing multiple interventions of his right coronary artery, PDA branch of RCA and circumflex vessel. The recent intervention was of a proximal and distal circumflex performed a drug- eluting stent on 09/26/2017. He was at [facility] and apparently he was found without oxygen and he was incoherent, was disoriented, somnolent and then he was transferred to the emergency room here for further evaluation. Patient after arrival was placed on BiPAP. His oxygen levels are low and pCO2 levels are high suggestive of hypercapnic respiratory failure-type picture. However, after placing on BiPAP, he seems to be doing better, denies any chest pain at the time of my evaluation he indicates to me that he does not know why he is here, but he has no chest pain. He is resting comfortably. There are three sets of troponins all of which are flat about 0.04, not suggestive of any myocardial injury. Patient does have history of CAD, but his troponin profile does not suggest myocardial injury and 0.04 and two values are in the same range. He is resting comfortably without symptoms, but still remains on BiPAP. PAST MEDICAL HISTORY: 1. Type 2 diabetes with [id number] CKD. 2. Hypertension. 3. Hyperlipidemia. 4. History of decubitus ulcers from which he has recovered. 5. CAD with multivessel intervention. The last was a circumflex PCI with 2 drug- eluting stents in August of 2017. 6. History of peripheral artery disease with intervention. MEDICATIONS: At home include Xarelto 15 mg daily, Plavix 75 mg daily, Lipitor 40 mg daily, Cozaar 25 mg daily, Lopressor 100 mg b.i.d. He also takes Lyrica, Flomax 0.4 mg daily, iron supplements and also Imdur 30 mg daily. ALLERGIES: No known drug allergies. PHYSICAL EXAMINATION: Blood pressure is 140/70, pulse rate is 80 per minute, regular. HEENT: Unremarkable. Fundus was not examined by me. NECK: Supple, there is JVD of 1 cm. No carotid bruit, S1-S2 heard normally but distantly short systolic murmur is noted. Lungs reveal diminished air entry both bases, scattered expiratory rhonchi. Abdomen is soft, nontender. Lower extremities reveal diminished pulses. Central nervous system grossly no focal deficits. IMPRESSION: 1. Hypercapnic, hypoxic respiratory failure with improvement after BiPAP. 2. Coronary artery disease with previous multivessel PCI. 3. History of peripheral artery disease with intervention with no current issues. No significant claudication. 4. Type 2 diabetes with chronic kidney disease. 5. Past history of smoking and chronic obstructive pulmonary disease with hospitalization previously with hypercapnia as well. RECOMMENDATIONS: I am recommending that will continue BiPAP, seek input from Dr. Jaquez from Pulmonary. I would also recommend that we discontinue the heparin drip, place him on a combination of Xarelto and Plavix that he was on before and his BNP is also elevated and this could be related to a combination of systolic and diastolic heart failure. Patient has borderline troponin elevation which could be related to hypoxemia. We will diurese him with intravenous Lasix for two additional doses today and switch him to oral Lasix tomorrow. Resume Xarelto, Plavix, beta blockers and statin agents. Will seek input from Dr. Jaquez for his respiratory issues. Thank you very much for the consult. MMODL / IJN: [id number] /
[2018-07-17] MEDS: SIMETHICONE 80 MG CHEWABLE PO SCH ×3 (15:26→21:51)
[2018-07-17] MEDS: METOPROLOL TARTRATE 50 MG TAB PO SCH (15:26)
[2018-07-17] MEDS ORDERED: FUROSEMIDE 10 MG/ML 4 ML VIAL IV ONE (16:00)
[2018-07-17 16:54] LABS: Glucose,Whole Blood 268 mg/dL (75-99)
--- NOTE | 2018-07-17 19:33 | P.CNPUL ---
History of Present Illness Consult date: 07/17/18 Reason for consult: dyspnea, hypoxemia Chief complaint: Shortness of breath, dyspnea/hypoxemia History of present illness: This is a 63-year-old male patient, obese, was coming into hospital because of altered mentation, hypoxemia and dyspnea. The patient was in the hospital on 07/09/2018 , same presentation. At that time the patient was treated and the patient was released to [facility] to completed a course of IV vancomycin for a MRSA toe osteomyelitis. The patient was supposed to complete a total of 6 week course be a PICC line in his right upper extremity. The patient was found to be hypoxic. He was found to be altered. For that reason was brought back to the hospital and the chest x-ray showed pulmonary edema with findings consistent with CHF, worse compared to the previous x-ray. BNP level was elevated.. The patient denied having any chest pain. He had increased lower extremity edema and this has developed over the past few days. His initial blood gas showed a pH of 7.28 with a pCO2 of 78 and pO2 of 110. The patient was placed on BiPAP for respiratory support. The patient was diuresed. He responded very nicely. He had excellent urine output and over the past few hours the patient was taken off the BiPAP. He is currently on oxygen 4 L per minute nasal cannula. He is breathing comfortably. No respiratory distress. No use of extremities and muscles of breathing. He denies having any chest pain. No pleurisy. No hemoptysis. His troponins were 0.04 and 0.04 respectively 2. ProBNP level was 14,500. The renal function is quite impaired with a creatinine of 1.58. The patient has a component of chronic renal failure. White cell count is not elevated. Chest x-rays consistent with pulmonary edema. He is awake. He is alert. No focal neurological deficit. The toe wound was inspected and there is no active drainage and the posterior wound that seen over the left big toe seems to be healing at this point in time. Review of Systems Constitutional: Reports daytime sleepiness, Reports fatigue, Reports weakness, Reports weight gain Eyes: denies as per HPI, denies blurred vision, denies bulging eye, denies decreased vision, denies diplopia, denies discharge, denies dry eye, denies irritation, denies itching, denies pain, denies photophobia, denies loss of peripheral vision, denies loss of vision, denies tunnel vision/blind spots Ears: deny: decreased hearing, ear discharge, earache, tinnitus Ears, nose, mouth and throat: Denies headache, Denies sore throat Cardiovascular: Reports decreased exercise tolerance, Reports dyspnea on exertion, Reports edema, Reports paroxysmal nocturnal dyspnea, Reports shortness of breath Respiratory: Reports dyspnea, Reports home oxygen, Reports wheezing Gastrointestinal: Denies abdominal pain, Denies diarrhea, Denies nausea, Denies vomiting Genitourinary: Reports as per HPI Musculoskeletal: Reports gait dysfunction, Reports limitation of motion, Reports low back pain Musculoskeletal: bilateral: ankle swelling, absent: ankle pain, ankle stiffness, as per HPI, elbow pain, elbow stiffness, elbow swelling, foot pain, foot stiffness, foot swelling, hand pain, hand stiffness, hand swelling, hip pain, hip stiffness, hip swelling, knee pain, knee stiffness, knee swelling, shoulder pain, shoulder stiffness, shoulder swelling, wrist pain, wrist stiffness, wrist swelling Integumentary: Reports dryness, Reports foot/leg ulcers, Reports wounds Neurological: Reports sensory deficit, Reports weakness Psychiatric: Reports as per HPI Endocrine: Reports as per HPI, Reports fatigue Hematologic/Lymphatic: Reports as per HPI Allergic/Immunologic: Reports as per HPI Past Medical History Past Medical History: Coronary Artery Disease (CAD), Heart Failure, COPD, CVA/TIA, Diabetes Mellitus, Deep Vein Thrombosis (DVT), GERD/Reflux, Hyperlipidemia, Hypertension, Myocardial Infarction (WA), Osteoarthritis (OA), Pneumonia, Pulmonary Embolus (PE), Skin Disorder, Vascular Disorder Additional Past Medical History / Comment(s): Pt recently admitted to [facility] on 06/05/18 with L great toe distal phalanx acute osteomylitis-now at [facility] for ABX thru Picc line.and 07/09/18 for acute delirium R/T ac renal failure Other Hx: COPD, coronary artery disease, chronic systolic heart failure with an ejection fraction of 45%, chronic stage II kidney disease, IDDM type II, neuropathy bilateral feet/legs/arms and hands, recently treated at [facility] for L great toe ulcer, January 2018 pt states was in coma/vented at [facility] d/t R 2nd toe infection, healed sacral ulcer, PVD,PAD, pt states he has been wearing oxygen ATC 3-4 L/NC, arthritis in low back and bilateral hips, chronic low back pain, gout, TIA x2, 2014 fall with brain bleed, gastric ulcer, psoriasis. Last Myocardial Infarction Date:: 08/2017 History of Any Multi-Drug Resistant Organisms: MRSA Date of last positivie culture/infection: 06/04/18 MDRO Source:: FOOT Past Surgical History: Heart Catheterization With Stent, Orthopedic Surgery, Tonsillectomy Additional Past Surgical History / Comment(s): Multiple cardiac caths and PCI with stents, L leg has 2 stents, L/R great toe debridements, 2nd R toe amp, bunionectomy-cannot recall laterality, bilateral rotator cuff surgery, colonoscopy, PICC line. Past Anesthesia/Blood Transfusion Reactions: Motion Sickness Additional Past Anesthesia/Blood Transfusion Reaction / Comment(s): pt stated has had a blood transfusion in past-no known reaction Date of Last Stent Placement:: 2016 Past Psychological History: Anxiety, Depression Additional Psychological History / Comment(s): Pt currently at [facility] for IV antibiotics. , normally lives in the family home with his . Pt uses a cane and walker to ambulate. He no longer drives, his spouse drives. Reformed smoker. Disabled. No international travel. No experience Smoking Status: Former smoker Past Alcohol Use History: None Reported Additional Past Alcohol Use History / Comment(s): QUIT SMOKING 1999, STARTED IN 1972, was smoking 2 ppd. in past was heavy drinker quit 1999 Past Drug Use History: None Reported - Past Family History Mother Family Medical History: Cancer, Coronary Artery Disease (CAD), Myocardial Inf arction (WA) Additional Family Medical History / Comment(s): Mother had brain cancer. She at the age of 53 yrs from a WA Father Family Medical History: Coronary Artery Disease (CAD), Myocardial Infarction (WA) Additional Family Medical History / Comment(s): Father of a WA at the age of 63 yrs. Medications and Allergies Home Medications Medication Instructions Recorded Confirmed Type Ferrous Sulfate [Iron (65 MG 325 mg PO DAILY 04/05/17 07/17/18 History Elemental)] Cholecalciferol [Vitamin D3] 1,000 unit PO DAILY 09/19/17 07/17/18 History Isosorbide Mononitrate ER [Imdur] 30 mg PO DAILY 09/19/17 07/17/18 History Losartan [Cozaar] 25 mg PO DAILY 09/19/17 07/17/18 History Albuterol Sulfate [Proair Hfa] 2 puff INHALATION RT-Q6H PRN 09/26/17 07/17/18 History Lactobacillus Acidophilus 3 tab PO HS 09/26/17 07/17/18 History [Acidophilus] Clopidogrel [Plavix] 75 mg PO DAILY #30 tab 09/28/17 07/17/18 Rx Rivaroxaban [Xarelto] 15 mg PO W/SUPPER #30 tab 09/28/17 07/17/18 Rx Allopurinol [Zyloprim] 100 mg PO DAILY #30 tablet 11/15/17 07/17/18 Rx Metoprolol Tartrate [Lopressor] 100 mg PO BID@0800,1600 02/14/18 07/17/18 History Tamsulosin HCl [Flomax] 0.4 mg PO DAILY 02/14/18 07/17/18 History Divalproex ER [Depakote ER] 250 mg PO HS #30 tab.er.24h 02/27/18 07/17/18 Rx INSULIN ASPART (NovoLOG) [NovoLOG See Protocol SQ AC-TID 06/02/18 07/17/18 History (formulary)] Nitroglycerin Sl Tabs [Nitrostat] 0.4 mg SUBLINGUAL Q5M PRN 06/02/18 07/17/18 History Simethicone Chew [Mylicon Chew] 80 mg PO QID chew 06/10/18 07/17/18 Rx Albuterol Nebulized [Ventolin 2.5 mg INHALATION RT-Q6H PRN 06/26/18 07/17/18 History Nebulized] Citalopram Hydrobromide [CeleXA] 20 mg PO DAILY 06/26/18 07/17/18 History DULoxetine HCL [Cymbalta] 60 mg PO DAILY 07/09/18 07/17/18 History Omeprazole 20 mg PO DAILY 07/09/18 07/17/18 History ALPRAZolam [Xanax] 0.25 mg PO Q12H PRN #6 tab 07/11/18 07/17/18 Rx Furosemide [Lasix] 40 mg PO DAILY #1 tablet 07/11/18 07/17/18 Rx Ipratropium-Albuterol Nebulize 3 ml INHALATION RT-QID ampul.neb 07/11/18 07/17/18 Rx [Duoneb 0.5 mg-3 mg/3 ml Soln] Pregabalin [Lyrica] 150 mg PO BID #6 capsule 07/11/18 07/17/18 Rx oxyCODONE HCL [OxyCONTIN] 10 mg PO Q6H PRN #12 tab.er.12h 07/11/18 07/17/18 Rx Insulin Glargine,Hum.rec.anlog 30 unit SQ BID@0807/17/18 07/17/18 H istory [Toujeo Solostar] Mupirocin [Mupirocin 2%] 1 applic TOPICAL HS 07/17/18 07/17/18 History oxyCODONE HCL [OxyCONTIN] 40 mg PO BID@0800,199907/17/18 07/17/18 History Allergies Allergy/AdvReac Type Severity Reaction Status Date / Time No Known Allergies Allergy Verified 07/17/18 07:24 Physical Exam Vitals: Vital Signs Temp Pulse Pulse Resp BP BP Pulse Ox 07/17/18 16:06 85 07/17/18 15:55 91 L 07/17/18 15:53 88 07/17/18 15:32 98.1 F 75 20 135/74 100 07/17/18 12:42 72 07/17/18 12:29 68 07/17/18 12:00 98 F 74 24 127/63 94 L 07/17/18 08:00 98.1 F 86 24 143/60 93 L 07/17/18 04:22 75 20 161/95 95 07/17/18 00:44 97.2 F L 70 20 140/88 98 07/17/18 00:41 97.2 F L 70 20 140/88 98 07/16/18 23:30 57 L 16 114/96 97 07/16/18 22:30 56 L 12 111/50 97 07/16/18 22:00 97.7 F 55 L 12 113/62 98 07/16/18 21:50 56 L 12 113/62 98 07/16/18 21:40 53 L 12 110/78 97 07/16/18 21:30 54 L 12 123/61 88 L 07/16/18 21:20 61 13 123/61 96 03/17/19 21:10 54 L 13 130/76 100 07/16/18 21:00 58 L 12 121/72 100 07/16/18 20:50 56 L 12 121/72 100 07/16/18 20:40 57 L 12 106/73 07/16/18 20:30 54 L 12 106/73 07/16/18 20:20 57 L 12 106/73 07/16/18 20:10 59 L 12 106/73 07/16/18 20:00 56 L 12 106/73 07/16/18 19:50 57 L 12 106/73 86 L 07/16/18 19:40 57 L 12 106/73 07/16/18 19:30 53 L 15 106/73 100 Intake and Output 07/17/18 07/17/18 07/17/18 06:59 14:59 22:59 Intake Total 308.32 240 Output Total 800 1600 400 Balance -800 -1291.68 -160 Intake: Intake, IV Titration 68.32 Amount Heparin Sod,Pork in 0.45% 68.32 NaCl 25,000 unit In 0.45 % NaCl 1 250ml.bag @ 8 UNITS/KG/HR 9.76 mls/hr IV .Q24H [facility] Rx#: [id number] Oral 240 240 Output: Urine 800 1600 400 Other: # Bowel Movements 1 Weight 132 kg 132 kg Gen.: The patient is calm comfortable currently off the BiPAP on 4 L of oxygen by nasal cannula. No dizziness and muscle breathing. Head: Atraumatic, normocephalic.Head exam was generally normal. There was no scleral icterus or corneal arcus. Mucous membranes were moist. HEENT: PERRLA, EOMI, no icterus. No neck masses, no JVD, moist mucous membranes, no stridor. Cardiovascular: Heart regular rate and rhythm, S1&S2 audible, no murmurs, rubs or gallops Chest: Diminished breath sound bilaterally, some rhonchi on forced expiratory maneuver noted bilaterally. Abdomen: Obese, soft, nontender, no megaly, no rebound. No guarding. multiple pleural areas of ecchymoses over the anterior abdomen likely from heparin Musculoskeletal: Pulses present and they are diminished and equal in all extremities, the patient has also +1 pitting edema in lower extremities bilaterally. Motor: Power 5/5 bilaterally, no focal deficits noted Neurological: CN II-XII grossly intact, no focal motor or sensory deficits noted Skin: Well-healing wound to the left great toe, deep coccyx ulcer noted. No purulent discharge noted, no surrounding erythema. Psych: Normal affect and mood Results - Laboratory Findings CBC and BMP: 07/16/18 20:55 07/16/18 20:55 ABG ABG pH 7.28 (7.35-7.45) L 07/16/18 20:42 ABG pCO2 78 mmHg (35-45) H* 07/16/18 20:42 ABG pO2 110 mmHg (83-108) H 07/16/18 20:42 ABG O2 Saturation 98.3 % (94-97) H 07/16/18 20:42 PT/INR, D-dimer PT 14.4 sec (9.0-12.0) H 07/16/18 20:55 INR 1.4 (<1.2) H 07/16/18 20:55 Abnormal lab findings: Abnormal Labs 07/16/18 07/16/18 07/16/18 01:00 19:19 20:42 WBC RBC Hgb Hct MCHC RDW Neutrophils # PT INR APTT ABG pH 7.28 L ABG pCO2 78 H* ABG pO2 110 H ABG HCO3 37 H ABG Total CO2 39 H ABG O2 Saturation 98.3 H Potassium Carbon Dioxide BUN Creatinine Glucose POC Glucose (mg/dL) 138 H Troponin I 0.043 H* Total Protein Albumin HDL Cholesterol 07/16/18 07/16/18 07/16/18 20:55 20:55 20:55 WBC 13.0 H RBC 3.45 L Hgb 8.9 L Hct 30.5 L MCHC 29.2 L RDW 15.9 H Neutrophils # 10.7 H PT 14.4 H INR 1.4 H APTT ABG pH ABG pCO2 ABG pO2 ABG HCO3 ABG Total CO2 ABG O2 Saturation Potassium 5.4 H Carbon Dioxide 34 H BUN 33 H Creatinine 1.58 H Glucose 122 H POC Glucose (mg/dL) Troponin I Total Protein 6.2 L Albumin 3.1 L HDL Cholesterol 07/16/18 07/17/18 07/17/18 20:55 06:23 06:23 WBC RBC Hgb Hct MCHC RDW Neutrophils # PT INR APTT ABG pH ABG pCO2 ABG pO2 ABG HCO3 ABG Total CO2 ABG O2 Saturation Potassium Carbon Dioxide BUN Creatinine Glucose POC Glucose (mg/dL) Troponin I 0.046 H* 0.045 H* Total Protein Albumin HDL Cholesterol 16 L 07/17/18 07/17/18 07/17/18 06:23 11:53 16:45 WBC RBC Hgb Hct MCHC RDW Neutrophils # PT INR APTT 33.9 H ABG pH ABG pCO2 ABG pO2 ABG HCO3 ABG Total CO2 ABG O2 Saturation Potassium Carbon Dioxide BUN Creatinine Glucose POC Glucose (mg/dL) 142 H 268 H Troponin I Total Protein Albumin HDL Cholesterol - Diagnostic Findings Chest x-ray: image reviewed Assessment and Plan Plan: Assessment 1 acute hypoxic respiratory failure secondary to CHF/pulmonary edema, improving 2 CHF with systolic heart failure and the patient has an ejection fraction of 45% 3 COPD 4 coronary artery disease with limited troponin leak, the patient's last cardiac catheterization was in August 2017 requiring stenting of the circumflex with 2 drug-eluting stents placed. 5 chronic kidney disease stage II 6 chronic osteomyelitis of the left big toe complete a course of IV daptomycin 7 hypertension 8 diabetes mellitus type 2 9 osteoarthritis 10 chronic anxiety/depression 11 chronic back pain 12 previous history of DVT 13 peripheral vascular disease 14 previous history of pulmonary embolism 15 chronic hypoxic respiratory failure and the patient wears oxygen between 3 and 4 L per minute nasal cannula 16 chronic back pain 17 history of TIA 2 18 history of falls 19 peptic ulcer disease 20 psoriasis 21 gout Plan Clinically much improved with diuresis. We'll continue diuretics for another 24 hours. Switch this patient subsequent oral Lasix. Repeat chest x-ray with next 24 hours. Oxygenation is improved and the patient is currently on 40s of oxygen by nasal cannula. Monitored lower extremity edema. Monitor renal function. Continue Xarelto. Outpatient medication of been all resumed. We'll continue to follow.
[2018-07-17] MEDS ORDERED: oxyCODONE ER 20 MG TAB.ER.12H PO SCH (20:00)
[2018-07-17 20:55] LABS: Glucose,Whole Blood 272 mg/dL (75-99)
[2018-07-17] MEDS: DIVALPROEX ER 250 MG TAB.ER.24H PO SCH (21:51)
[2018-07-17] MEDS: MUPIROCIN 2% OINT 22 GM TUBE TOPICAL SCH (21:51)
[2018-07-17] MEDS: ATORVASTATIN 80 MG TAB PO SCH (21:51)
[2018-07-17] MEDS: LACTOBACILLUS ACIDOPH & BULGAR 1 EACH PACKET PO SCH (21:51)
[2018-07-17] MEDS: TAMSULOSIN 0.4 MG CAP.ER.24H PO SCH (21:51)
--- NOTE | 2018-07-17 22:43 | HP ---
HISTORY AND PHYSICAL DATE OF ADMISSION: 07/16/2018 DATE OF SERVICE: 07/16/2018 PRESENT COMPLAINT: Lethargic. HISTORY OF PRESENT COMPLAINT: This is a pleasant 63-year-old patient who follows with Dr. Naqvi who has got multiple medical problems. Chronic stable medical conditions include coronary artery disease, COPD, diabetes, GERD, hyperlipidemia, hypertension, peripheral artery disease, chronic low back pain, follows with Dr. Cortez. The patient is currently at the [facility]. The patient recently completed a course of antibiotics for left big toe distal phalanx acute osteomyelitis. The patient also has a healed decub ulcer on the coccygeal area. The patient presented to the ER, lethargic, hypoxic, felt to be in fluid overload. He was given IV Lasix and was also found to be hypercapnic. The patient is put on a BiPAP, given IV Lasix, admitted. The patient is not felt to have an acute MT. IV heparin was earlier discontinued by Dr. Marycruz Martinez. The patient did not have any chest pain, though patient has underlying coronary artery disease. When I saw the patient, patient is a bit more awake and less confused; is able to answer questions more appropriately than initial presentation. I saw him this afternoon. The patient does not remember really what happened. REVIEW OF SYSTEMS: CONSTITUTIONAL: Tired, confused. HEENT: None. RESPIRATORY: Short of breath. CARDIOVASCULAR: No chest pain. GASTROINTESTINAL: None. GENITOURINARY: None. MUSCULOSKELETAL: Pain in many joints, lower back. DERMATOLOGICAL: Left big toe wound quite healed. HEMATOLOGICAL: None. LYMPHATIC: None. PSYCHIATRY: The patient is confused on presentation. NEUROLOGICAL: None. PAST MEDICAL HISTORY: 1. Left big toe distal phalanx acute osteomyelitis, just completed treatment. 2. Coronary artery with stent to the circumflex. 3. Chronic obstructive pulmonary disease. 4. Diabetes mellitus type 2. 5. Gastroesophageal reflux disease. 6. Hyperlipidemia. 7. Essential hypertension. 8. Primary osteoarthritis. 9. Peripheral artery disease with stent. 10.History of amputation of right big toe. 11.Sacral wound that is healed. 12.Depression and anxiety. 13.Chronic low back pain from arthritis, being followed by Dr. Cortez. 14.Congestive heart failure. 15.Stroke. 16.Chronic hypoxic respiratory failure on home oxygen 3-4 L. 17.Gout. 18.In 2013 had a fall with a brain bleed. 19.Gastric ulcer. PAST SURGICAL HISTORY: Multiple cardiac cath with stent, left leg has 2 stents, 2nd right big toe amputation, bunionectomy, bilateral rotator cuff surgery. SOCIAL HISTORY: Currently at [facility], , does use a cane and a walker. The patient is on disability. Patient smoked for 17 years, stopped in 1999, smoked 2 packs a day. Was drinking heavy up to 1999. FAMILY HISTORY: Mother had brain cancer and of heart attack. HOME MEDICATIONS: 1. OxyContin 10 mg q.6h p.r.n. 2. OxyContin 40 mg p.o. b.i.d. 3. Flomax 0.4 mg p.o. daily. 4. Simethicone 80 mg p.o. q.i.d. 5. Xarelto 50 mg with supper. 6. Lyrica 150 mg p.o. b.i.d. 7. Omeprazole 20 mg p.o. daily. 8. Nitrostat 0.4 sublingual q.5h p.r.n. 9. Mupirocin 2% topical q.h.s. 10.Lopressor 100 mg p.o. b.i.d. 11.Cozaar 25 mg p.o. daily. 12.Lactobacillus 3 tablets p.o. q.h.s. 13.Imdur ER 30 mg p.o. daily. 14.DuoNeb 3 mL q.i.d. 15.Insulin Lantus 30 units subcu b.i.d. 16.NovoLog per protocol a.c. t.i.d. 17.Lasix 40 mg p.o. daily. 18.Iron 325 p.o. daily. 19.Depakote ER 325 p.o. q.h.s. 20.Cymbalta 60 mg p.o. daily. 21.Plavix 75 mg p.o. daily. 22.Celexa 20 mg p.o. daily. 23.Vitamin D3 1000 units p.o. daily. 24.Allopurinol 100 mg p.o. daily. 25.ProAir 2 puffs q.6h p.r.n. 26.Ventolin 2.5 q.6h p.r.n. 27.Xanax 0.25 q.12h p.r.n. ALLERGIES: None. PHYSICAL EXAMINATION: Vital signs on presentation: Temperature 98, pulse 64, respiration 20, blood pressure 106/73, pulse ox 100%. GENERAL APPEARANCE: Well built. BMI 34.5. Lying in bed, tired-appearing, awake but lethargic. EYES: Pupils equal. Conjunctivae normal. HEENT: External appearance of ears and nose normal. Oral cavity dry. NECK: JVD unable to assess. Mass not palpable. Respiratory effort increased. LUNGS: Diminished breath sounds. CARDIOVASCULAR: First and second sounds normal. Minimal edema. ABDOMEN: Distended, soft. Liver and spleen not palpable. LYMPHATICS: No lymph node palpable in neck or axillae. PSYCHIATRY: The patient is able to answer some questions, is starting to improve when I saw this patient this afternoon. NEUROLOGICAL: Pupils equal. No facial asymmetry. Moving all 4 limbs. INVESTIGATIONS: White count 13, hemoglobin 8.9, platelets 307. Blood gas showed pH of 7.28, pCO2 78. Potassium 5.4, BUN 33, creatinine 1.58, glucose 138, 268. Troponin 0.043, 0.045. LDL 87. EKG tracing personally reviewed by me shows normal sinus rhythm. Chest x-ray film, portable, reviewed by me personally shows evidence of pulmonary edema. The patient's echocardiogram from June of this year showed EF of 45-50 percent and wall motion abnormalities. ASSESSMENT: 1. Acute metabolic encephalopathy probably from hypercapnic respiratory failure. 2. Acute renal failure, could be prerenal from decreased oral intake. 3. Acute on chronic congestive heart failure from systolic and diastolic dysfunction, EF 45-50 percent. 4. Left big toe distal phalanx acute osteomyelitis. The patient has completed a course of antibiotic. 5. Coronary artery disease, prior history of stent in the circumflex. 6. Troponin leak probably from hemodynamic mismatch, no evidence of acute myocardial infarction. 7. Chronic obstructive pulmonary disease in an ex-smoker with acute exacerbation. 8. Diabetes mellitus type 2, chronically on insulin. 9. Gastroesophageal reflux disease. 10.Hyperlipidemia. 11.Essential hypertension. 12.Primary osteoarthritis. 13.Peripheral artery disease with stent. 14.History of amputation of right big toe. 15.Sacral wound, healed. 16.Depression and anxiety, not otherwise specified. 17.Chronic low back pain from arthritis, being followed by Dr. Cortez. 18.Hyperkalemia in the setting of acute renal failure. PLAN: The patient did get IV Lasix. Also, put on BiPAP. Dose of MS Contin was discontinued. When patient is more awake we will start the dose on half the dose of the OxyContin long-acting. Other home medications are resumed. The patient was seen by Dr. Bateman from Pulmonary and Dr. Marycruz Martinez from Cardiology. The patient also put on bronchodilators. Accu-Cheks will be closely followed. Repeat electrolytes in the morning. MMODL / IJN: [id number] /
[2018-07-18] MEDS: oxyCODONE ER 10 MG TAB.ER.12H PO PRN ×4 (00:05→18:37)
[2018-07-18 04:11] LABS: Glucose,Whole Blood 164 mg/dL (75-99)
[2018-07-18] MEDS: PANTOPRAZOLE 40 MG TABLET PO SCH (06:41)
[2018-07-18 07:00] LABS: Glucose,Whole Blood 134 mg/dL (75-99)
[2018-07-18 07:35] LABS: Calcium 8.8 mg/dL (8.4-10.2); Potassium 4.7 mmol/L (3.5-5.1)
[2018-07-18] MEDS: METOPROLOL TARTRATE 50 MG TAB PO SCH ×2 (07:52→18:35)
[2018-07-18] MEDS: INSULIN DETEMIR (LEVEMIR) 100 UNIT/ML SYR SQ SCH ×2 (07:52→20:24)
[2018-07-18] MEDS: PREGABALIN 75 MG CAP PO SCH ×2 (08:44→20:24)
[2018-07-18] MEDS: CLOPIDOGREL 75 MG TAB PO SCH (08:44)
[2018-07-18] MEDS: LOSARTAN 25 MG TAB PO SCH (08:44)
[2018-07-18] MEDS: CITALOPRAM HYDROBROMIDE 20 MG TAB PO SCH (08:44)
[2018-07-18] MEDS: ALLOPURINOL 100 MG TAB PO SCH (08:44)
[2018-07-18] MEDS: FUROSEMIDE 40 MG TAB PO SCH ×2 (08:44→20:24)
[2018-07-18] MEDS: ISOSORBIDE MONONITRATE ER 30 MG TAB.ER.24H PO SCH (08:44)
[2018-07-18] MEDS: DULoxetine HCL 60 MG CAPSULE.DR PO SCH (08:45)
[2018-07-18] MEDS ORDERED: FUROSEMIDE 40 MG TAB PO SCH (09:00)
[2018-07-18] MEDS: IPRATROPIUM-ALBUTEROL 3 ML NEB INHALATION SCH ×4 (10:13→19:27)
[2018-07-18] MEDS ORDERED: FUROSEMIDE 10 MG/ML 4 ML VIAL IV STA (10:42)
[2018-07-18] MEDS: SIMETHICONE 80 MG CHEWABLE PO SCH ×4 (10:49→20:25)
[2018-07-18] MEDS: FERROUS SULFATE 325 MG TAB PO SCH (11:11)
[2018-07-18 11:23] LABS: Glucose,Whole Blood 154 mg/dL (75-99)
--- NOTE | 2018-07-18 12:19 | P.PN ---
Subjective Progress Note Date: 07/18/18 07/18/2018 This is a 63-year-old gentleman with history of hypertension, high cholesterol, CAD with PCI to the RCA, PAD, and diabetes mellitus. patient arrived to the hospital with mental status changes, elevated troponin and hypercapnia. Stable CAD. No current or acute cardiac events. Patient doing much better this day. Up in chair and off BiPAP with no acute distress. Patient continues to have lower extremity edema will add IV Lasix 40 mg. Continue all other medical therapy/medical regime. Clear from cardiolgoy standpoint for dc. Start discharge planning, patient resides at [facility]. Objective - Vital Signs Vital signs: Vital Signs Temp 98.8 F 07/18/18 07:40 Pulse 82 07/18/18 11:27 Resp 22 07/18/18 07:40 BP 135/66 07/18/18 07:40 Pulse Ox 93 L 07/18/18 07:40 Intake & Output 07/17/18 07/18/18 07/18/18 18:59 06:59 18:59 Intake Total 548.32 480 Output Total 1999 220 Balance -1451.68 -220 480 Weight 132 kg 128.9 kg Intake: Intake, IV Titration 68.32 Amount Heparin Sod,Pork in 0.45% 68.32 NaCl 25,000 unit In 0.45 % NaCl 1 250ml.bag @ 8 UNITS/KG/HR 9.76 mls/hr IV .Q24H [facility] Rx#: [id number] Oral 480 480 Output: Urine 1999 220 Other: Voiding Method Toilet # Voids 1 2 # Bowel Movements 1 - Labs CBC & Chem 7: 07/16/18 20:55 07/18/18 05:37 Labs: Abnormal Lab Results - Last 24 Hours (Table) 07/17/18 07/17/18 07/18/18 Range/Units 16:45 20:53 04:05 Carbon Dioxide (22-30) mmol/L BUN (9-20) mg/dL Glucose (74-99) mg/dL POC Glucose (mg/dL) 268 H 272 H 164 H (75-99) mg/dL 07/18/18 07/18/18 07/18/18 Range/Units 05:37 06:33 11:22 Carbon Dioxide 35 H (22-30) mmol/L BUN 30 H (9-20) mg/dL Glucose 118 H (74-99) mg/dL POC Glucose (mg/dL) 134 H 154 H (75-99) mg/dL Microbiology - Last 24 Hours (Table) 07/16/18 20:55 Blood Culture - Preliminary Blood No Growth after 24 hours
--- NOTE | 2018-07-18 15:49 | P.PN ---
Subjective Progress Note Date: 07/18/18 Principal diagnosis: Acute hypoxic respiratory failure secondary to CHF, pulmonary edema, systolic dysfunction This is a 63-year-old male patient, obese, was coming into hospital because of altered mentation, hypoxemia and dyspnea. The patient was in the hospital on 07/09/2018 , same presentation. At that time the patient was treated and the patient was released to [facility] to completed a course of IV vancomycin for a MRSA toe osteomyelitis. The patient was supposed to complete a total of 6 week course be a PICC line in his right upper extremity. The patient was found to be hypoxic. He was found to be altered. For that reason was brought back to the hospital and the chest x-ray showed pulmonary edema with findings consistent with CHF, worse compared to the previous x-ray. BNP level was elevated.. The patient denied having any chest pain. He had increased lower extremity edema and this has developed over the past few days. His initial blood gas showed a pH of 7.28 with a pCO2 of 78 and pO2 of 110. The patient was placed on BiPAP for respiratory support. The patient was diuresed. He responded very nicely. He had excellent urine output and over the past few hours the patient was taken off the BiPAP. He is currently on oxygen 4 L per minute nasal cannula. He is breathing comfortably. No respiratory distress. No use of extremities and muscles of breathing. He denies having any chest pain. No pleurisy. No hemoptysis. His troponins were 0.04 and 0.04 respectively 2. ProBNP level was 14,500. The renal function is quite impaired with a creatinine of 1.58. The patient has a component of chronic renal failure. White cell count is not e levated. Chest x-rays consistent with pulmonary edema. He is awake. He is alert. No focal neurological deficit. The toe wound was inspected and there is no active drainage and the posterior wound that seen over the left big toe seems to be healing at this point in time. On 07/18/2018 patient seen in follow-up on selective care unit, he is ambulating in the room, in no acute distress, he is on liters of oxygen his pulse ox is 97%, afebrile, hemodynamics are stable, no complaints of worsened shortness of breath or chest pain, patient continues on oral Lasix, was given additional dose of IV Lasix today for cardiology, maintaining negative fluid balance, weight is down by 3.1 kg in the last 24 hours. Lung sounds are clear, diminished at the bases, no rhonchi, no rales or wheezing Objective - Vital Signs Vital signs: Vital Signs Temp 98.5 F 07/18/18 11:05 Pulse 82 07/18/18 15:37 Resp 18 07/18/18 11:05 BP 157/73 07/18/18 11:05 Pulse Ox 97 07/18/18 11:05 Intake & Output 07/17/18 07/18/18 07/18/18 18:59 06:59 18:59 Intake Total 548.32 1180 Output Total 1999 220 900 Balance -1451.68 -220 280 Weight 132 kg 128.9 kg Intake: Intake, IV Titration 68.32 Amount Heparin Sod,Pork in 0.45% 68.32 NaCl 25,000 unit In 0.45 % NaCl 1 250ml.bag @ 8 UNITS/KG/HR 9.76 mls/hr IV .Q24H [facility] Rx#: [id number] Oral 480 1180 Output: Urine 1999 900 Other: Voiding Method Toilet # Voids 1 2 # Bowel Movements 1 - Exam GENERAL EXAM: Alert, pleasant, 63-year-old white male in 2 L of oxygen with a pulse ox of 97% comfortable in no apparent distress. HEAD: Normocephalic/atraumatic. EYES: Normal reaction of pupils, equal size. Conjunctiva pink, sclera white. NOSE: Clear with pink turbinates. THROAT: No erythema or exudates. NECK: No masses, no JVD, no thyroid enlargement, no adenopathy. CHEST: No chest wall deformity. Symmetrical expansion. LUNGS: Equal air entry with no crackles, wheeze, rhonchi or dullness. CVS: Regular rate and rhythm, normal S1 and S2, no gallops, no murmurs, no rubs ABDOMEN: Soft, nontender. No hepatosplenomegaly, normal bowel sounds, no guarding or rigidity. EXTREMITIES: No clubbing, 1+ pitting edema, no cyanosis, 2+ pulses and upper and lower extremities. Healing wounds to the left great toe, a wound on his coccyx, no purulent discharge noted, no surrounding erythema. MUSCULOSKELETAL: Muscle strength and tone normal. SPINE: No scoliosis or deformity SKIN: No rashes CENTRAL NERVOUS SYSTEM: Alert and oriented -3. No focal deficits, tone is normal in all 4 extremities. PSYCHIATRIC: Alert and oriented -3. Appropriate affect. Intact judgment and insight. - Labs CBC & Chem 7: 07/16/18 20:55 07/18/18 05:37 Labs: Abnormal Lab Results - Last 24 Hours (Table) 07/17/18 07/17/18 07/18/18 Range/Units 16:45 20:53 04:05 Carbon Dioxide (22-30) mmol/L BUN (9-20) mg/dL Glucose (74-99) mg/dL POC Glucose (mg/dL) 268 H 272 H 164 H (75-99) mg/dL 07/18/18 07/18/18 07/18/18 Range/Units 05:37 06:33 11:22 Carbon Dioxide 35 H (22-30) mmol/L BUN 30 H (9-20) mg/dL Glucose 118 H (74-99) mg/dL POC Glucose (mg/dL) 134 H 154 H (75-99) mg/dL Microbiology - Last 24 Hours (Table) 07/16/18 20:55 Blood Culture - Preliminary Blood No Growth after 24 hours Assessment and Plan Plan: Assessment: 1 acute hypoxic respiratory failure secondary to CHF/pulmonary edema, improving 2 CHF with systolic heart failure and the patient has an ejection fraction of 45% 3 COPD 4 coronary artery disease with limited troponin leak, the patient's last cardiac catheterization was in August 2017 requiring stenting of the circumflex with 2 drug-eluting stents placed. 5 chronic kidney disease stage II 6 chronic osteomyelitis of the left big toe complete a course of IV daptomycin 7 hypertension 8 diabetes mellitus type 2 9 osteoarthritis 10 chronic anxiety/depression 11 chronic back pain 12 previous history of DVT 13 peripheral vascular disease 14 previous history of pulmonary embolism 15 chronic hypoxic respiratory failure and the patient wears oxygen between 3 and 4 L per minute nasal cannula 16 chronic back pain 17 history of TIA 2 18 history of falls 19 peptic ulcer disease 20 psoriasis 21 gout Plan: We will continue current medical treatment, patient is maintaining negative fluid balance, tingling oxygenation on 2 L of oxygen, Lasix signs are stable. Cardiology is following and managing the diuresis. COPD seems to be stable and will continue with breathing treatments. I performed a history & physical examination of the patient and discussed their management with my nurse practitioner, Nadira Collins. I reviewed the nurse practitioner's note and agree with the documented findings and plan of care. Lung sounds are positive for clear breath sounds. The findings and the impr ession was discussed with the patient. I attest to the documentation by the nurse practitioner. Time with Patient: Less than 30
[2018-07-18 16:15] VITALS: BMI 38.5
[2018-07-18 16:17] LABS: Glucose,Whole Blood 230 mg/dL (75-99)
[2018-07-18] MEDS ORDERED: RIVAROXABAN 15 MG TAB PO SCH (17:30)
[2018-07-18] MEDS: RIVAROXABAN 15 MG TAB PO SCH (18:35)
[2018-07-18] MEDS: DIVALPROEX ER 250 MG TAB.ER.24H PO SCH (20:24)
[2018-07-18] MEDS: LACTOBACILLUS ACIDOPH & BULGAR 1 EACH PACKET PO SCH (20:24)
[2018-07-18] MEDS: ATORVASTATIN 80 MG TAB PO SCH (20:24)
[2018-07-18] MEDS: TAMSULOSIN 0.4 MG CAP.ER.24H PO SCH (20:24)
[2018-07-18 20:40] LABS: Glucose,Whole Blood 268 mg/dL (75-99)
[2018-07-18] MEDS: MUPIROCIN 2% OINT 22 GM TUBE TOPICAL SCH (22:28)
[2018-07-19] MEDS: traMADol 50 MG TAB PO PRN ×3 (04:54→14:20)
[2018-07-19 06:03] LABS: Glucose,Whole Blood 126 mg/dL (75-99)
[2018-07-19] MEDS: PANTOPRAZOLE 40 MG TABLET PO SCH (06:45)
--- NOTE | 2018-07-19 06:51 | HP ---
HISTORY AND PHYSICAL ADDENDUM TO HISTORY AND PHYSICAL DATE OF ADMISSION: 07/16/2018 ADDENDUM: My history and physical dictated on 07/17/2018 at 2045, date transcribed on 07/17/2018 at 6987, the correct date of service is 07/17/2018. MMDANY / IJLala: [id number] /
[2018-07-19] MEDS: INSULIN ASPART (NovoLOG) 100 UNIT/ML VIAL SQ SCH ×3 (06:59→17:36)
--- NOTE | 2018-07-19 07:12 | PN ---
PROGRESS NOTE DATE OF SERVICE: 07/18/2018 PRESENTING COMPLAINT: Tired. INTERVAL HISTORY: Patient admitted with acute metabolic encephalopathy, acute renal failure and acute CHF exacerbation. Did get IV Lasix. Also patient had COPD exacerbation with CO2 retention. Doing much better today. Breathing is better. Did tolerate his diet. Lying in bed. REVIEW OF SYSTEMS: Done for constitutional, cardiovascular, GI, pulmonary; relevant findings as above. MEDICATIONS: Current medications are reviewed that include bronchodilators, p.o. Lasix. The patient's long-acting OxyContin had been discontinued. PHYSICAL EXAMINATION: On examination, temperature 98.4, pulse 79, respiration 18, blood pressure 141/84, pulse ox 96% on 2 L. GENERAL APPEARANCE: Lying in bed, awake. EYES: Pupils equal. Conjunctivae normal. NECK: JVD not raised. Mass not palpable. RESPIRATORY: Effort increased. LUNGS: Diminished breath sounds. CARDIOVASCULAR: First and second sounds normal. Minimal edema. ABDOMEN: Distended, soft. Liver and spleen not palpable. PSYCHIATRY: Alert and oriented x3. Mood and affect minimally anxious. INVESTIGATIONS: Potassium 4.7, BUN 30, creatinine 1.10. Accu-Cheks are noted 134, 154, 230, 268. ASSESSMENT: 1. Acute metabolic encephalopathy, probably from hypercapnic acute respiratory failure, improved. 2. Acute renal failure prerenal from decreased oral intake, improved. 3. Acute on chronic congestive heart failure from systolic and diastolic dysfunction, ejection fraction 45% to 50%, much improved. 4. Left big toe distal phalanx acute osteomyelitis. Patient has completed a course of antibiotics recently. 5. Coronary artery disease prior history of stent to the circumflex. 6. Troponin leak due to hemodynamic mismatch. No evidence of acute myocardial infarction. 7. Chronic obstructive pulmonary disease in an ex-smoker, acute exacerbation, now improving. 8. Diabetes mellitus, type 2, chronically on insulin. 9. Gastroesophageal reflux disease. 10.Hyperlipidemia. 11.Essential hypertension. 12.Primary osteoarthritis. 13.Peripheral arterial disease with stent. 14.History of amputation right big toe. 15.Sacral wound, healed. 16.Depression and anxiety, not otherwise specified. 17.Chronic low back pain from arthritis, being followed by Dr. Cortez. 18.Hyperkalemia in setting of acute renal failure, improved. PLAN: I had a lengthy talk with the patient. He does understand that high dose of OxyContin is often making him sedated and he has been off OxyContin since yesterday. Pain is reasonably controlled. Patient actually did get up to go to the bathroom. Will try Ultram p.r.n. Later in the evening, patient did have an episode of confusion that did settle down. Patient had received short-acting OxyContin. I am going to stop the patient's OxyContin. Also will change the patient's Levemir to 46 units once starting tomorrow evening and add scheduled Humalog with meals. Will repeat a chest x-ray and a BNP in the morning and probably watch the patient for another 24 hours to make sure there is no major withdrawal. MMODL / IJN: [id number] /
[2018-07-19] MEDS: IPRATROPIUM-ALBUTEROL 3 ML NEB INHALATION SCH ×4 (07:39→19:42)
[2018-07-19] MEDS: ISOSORBIDE MONONITRATE ER 30 MG TAB.ER.24H PO SCH (08:56)
[2018-07-19] MEDS: CITALOPRAM HYDROBROMIDE 20 MG TAB PO SCH (08:56)
[2018-07-19] MEDS: LOSARTAN 25 MG TAB PO SCH (08:56)
[2018-07-19] MEDS: CLOPIDOGREL 75 MG TAB PO SCH (08:57)
[2018-07-19] MEDS: FERROUS SULFATE 325 MG TAB PO SCH (08:57)
[2018-07-19] MEDS: PREGABALIN 75 MG CAP PO SCH ×2 (08:57→21:46)
[2018-07-19] MEDS: FUROSEMIDE 40 MG TAB PO SCH ×2 (08:57→21:46)
[2018-07-19] MEDS: METOPROLOL TARTRATE 50 MG TAB PO SCH ×2 (08:57→16:12)
[2018-07-19] MEDS: DULoxetine HCL 60 MG CAPSULE.DR PO SCH (08:57)
[2018-07-19] MEDS: ALLOPURINOL 100 MG TAB PO SCH (08:57)
[2018-07-19] MEDS: SIMETHICONE 80 MG CHEWABLE PO SCH ×4 (09:01→21:46)
--- NOTE | 2018-07-19 09:13 | XR ---
EXAMINATION TYPE: XR chest 2V DATE OF EXAM: 07/19/2018 COMPARISON: Prior chest x-ray 07/16/2018 HISTORY: Abnormal chest x-ray, congestive heart failure and shortness of breath TECHNIQUE: Frontal and lateral views of the chest are obtained. FINDINGS: Bilateral airspace disease persists. Interstitium is increased. Heart size is increased. T here is no pneumothorax, there is possibly small effusion. IMPRESSION: Findings compatible with patient's history congestive heart failure. Additional follow-u p recommended.
[2018-07-19 09:17] LABS: Anisocytosis Slight; HCT 27.5 % (39.0-53.0); Hypochromasia Marked; MCHC 29.1 g/dL (31.0-37.0); Platelet Count 328 k/uL (150-450); WBC 11.3 k/uL (3.8-10.6)
[2018-07-19 09:21] LABS: Anion Gap 6 mmol/L; Blood Urea Nitrogen 26 mg/dL (9-20); Calcium 8.9 mg/dL (8.4-10.2); Carbon Dioxide 35 mmol/L (22-30); Chloride 100 mmol/L (98-107); Glucose 117 mg/dL (74-99); Potassium 4.5 mmol/L (3.5-5.1); Sodium 141 mmol/L (137-145)
[2018-07-19 11:35] LABS: Glucose,Whole Blood 117 mg/dL (75-99)
--- NOTE | 2018-07-19 13:12 | P.PN ---
Subjective Progress Note Date: 07/19/18 Principal diagnosis: Acute hypoxic respiratory failure secondary to congestive heart failure, pulmonary edema, systolic dysfunction This is a 63-year-old male patient, obese, was coming into hospital because of altered mentation, hypoxemia and dyspnea. The patient was in the hospital on 07/09/2018 , same presentation. At that time the patient was treated and the patient was released to [facility] to completed a course of IV vancomycin for a MRSA toe osteomyelitis. The patient was supposed to complete a total of 6 week course be a PICC line in his right upper extremity. The patient was found to be hypoxic. He was found to be altered. For that reason was brought back to the hospital and the chest x-ray showed pulmonary edema with findings consistent with CHF, worse compared to the previous x-ray. BNP level was elevated.. The patient denied having any chest pain. He had increased lower extremity edema and this has developed over the past few days. His initial blood gas showed a pH of 7.28 with a pCO2 of 78 and pO2 of 110. The patient was placed on BiPAP fo r respiratory support. The patient was diuresed. He responded very nicely. He had excellent urine output and over the past few hours the patient was taken off the BiPAP. He is currently on oxygen 4 L per minute nasal cannula. He is breathing comfortably. No respiratory distress. No use of extremities and muscles of breathing. He denies having any chest pain. No pleurisy. No hemoptysis. His troponins were 0.04 and 0.04 respectively 2. ProBNP level was 14,500. The renal function is quite impaired with a creatinine of 1.58. The patient has a component of chronic renal failure. White cell count is not elevated. Chest x-rays consistent with pulmonary edema. He is awake. He is a lert. No focal neurological deficit. The toe wound was inspected and there is no active drainage and the posterior wound that seen over the left big toe seems to be healing at this point in time. On 07/18/2018 patient seen in follow-up on selective care unit, he is ambulating in the room, in no acute distress, he is on liters of oxygen his pulse ox is 97%, afebrile, hemodynamics are stable, no complaints of worsened shortness of breath or chest pain, patient continues on oral Lasix, was given additional dose of IV Lasix today for cardiology, maintaining negative fluid balance, weight is down by 3.1 kg in the last 24 hours. Lung sounds are clear, diminished at the bases, no rhonchi, no rales or wheezing The patient is seen today 07/19/2017 in follow-up on the selective care unit. He is currently awake and alert in no acute distress. Resting quite comfortably in bed. He is maintaining good O2 saturations in the 90s on 2 L/m per nasal cannula. He's been afebrile. The culture revealing no growth. White count 11.3. Hemoglobin 8.0. Creatinine 0.99. Bicarb 35. Currently on Lasix 40 mg by mouth twice a day. Anticoagulated with Xarelto. Chest x-ray continues to revealed bilateral airspace disease and fluid volume overload. Cardiomegaly. Objective - Vital Signs Vital signs: Vital Signs Temp 98.4 F 07/19/18 09:20 Pulse 98 07/19/18 09:20 Resp 16 07/19/18 09:20 BP 165/91 07/19/18 09:20 Pulse Ox 92 L 07/19/18 09:20 Intake & Output 07/18/18 07/19/18 07/19/18 18:59 06:59 18:59 Intake Total 1291 1440 Output Total 1200 730 100 Balance 91 -730 1340 Weight 128.9 kg 127.7 kg Intake: Oral 1291 1440 Output: Urine 1200 730 100 Other: Voiding Method Toilet Toilet Toilet Urinal Urinal # Voids 2 1 1 # Bowel Movements 1 - Exam GENERAL EXAM: Obese male. Alert, active, comfortable in no apparent distress. On 2 L nasal cannula. HEAD: Normocephalic. EYES: Normal reaction of pupils, equal size. NOSE: Clear with pink turbinates. THROAT: No erythema or exudates. NECK: No masses, no JVD. CHEST: No chest wall deformity. LUNGS: Equal air entry with crackles in the bilateral posterior bases. CVS: S1 and S2 normal with no audible murmur, regular rhythm. ABDOMEN: No hepatosplenomegaly, normal bowel sounds, no guarding or rigidity. SPINE: No scoliosis or deformity SKIN: No rashes CENTRAL NERVOUS SYSTEM: No focal deficits, tone is normal in all 4 extremities. EXTREMITIES: There is no peripheral edema. No clubbing, no cyanosis. Peripheral pulses are intact. - Labs CBC & Chem 7: 07/19/18 06:00 07/19/18 06:00 Labs: Abnormal Lab Results - Last 24 Hours (Table) 07/18/18 07/18/18 07/19/18 Range/Units 16:15 20:37 06:00 WBC 11.3 H (3.8-10.6) k/uL RBC 3.20 L (4.30-5.90) m/uL Hgb 8.0 L (13.0-17.5) gm/dL Hct 27.5 L (39.0-53.0) % MCHC 29.1 L (31.0-37.0) g/dL RDW 16.0 H (11.5-15.5) % Carbon Dioxide (22-30) mmol/L BUN (9-20) mg/dL Glucose (74-99) mg/dL POC Glucose (mg/dL) 230 H 268 H (75-99) mg/dL 07/19/18 07/19/18 07/19/18 Range/Units 06:00 06:01 11:34 WBC (3.8-10.6) k/uL RBC (4.30-5.90) m/uL Hgb (13.0-17.5) gm/dL Hct (39.0-53.0) % MCHC (31.0-37.0) g/dL RDW (11.5-15.5) % Carbon Dioxide 35 H (22-30) mmol/L BUN 26 H (9-20) mg/dL Glucose 117 H (74-99) mg/dL POC Glucose (mg/dL) 126 H 117 H (75-99) mg/dL Microbiology - Last 24 Hours (Table) 07/16/18 20:55 Blood Culture - Preliminary Blood No Growth after 48 hours Assessment and Plan Assessment: 1 acute hypoxic respiratory failure secondary to CHF/pulmonary edema, improving 2 CHF with systolic heart failure and the patient has an ejection fraction of 45% 3 COPD 4 coronary artery disease with limited troponin leak, the patient's last cardiac catheterization was in August 2017 requiring stenting of the circumflex with 2 drug-eluting stents placed. 5 chronic kidney disease stage II 6 chronic osteomyelitis of the left big toe complete a course of IV daptomycin 7 hypertension 8 diabetes mellitus type 2 9 osteoarthritis 10 chronic anxiety/depression 11 chronic back pain 12 previous history of DVT 13 peripheral vascular disease 14 previous history of pulmonary embolism 15 chronic hypoxic respiratory failure and the patient wears oxygen between 3 and 4 L per minute nasal cannula 16 chronic back pain 17 history of TIA 2 18 history of falls 19 peptic ulcer disease 20 psoriasis 21 gout Plan: The patient was seen and evaluated by Dr. Bateman. Chest x-ray and labs were reviewed. We'll continue with diuretics for now. On nasal cannula. We will continue to follow make further recommendations based on his clinical status. I, the cosigning physician, performed a history & physical examination of the patient. Lungs sounds with crackles in the bilateral posterior bases. Maintaining good O2 saturations in the 90s on 2 L/m per nasal cannula. I discussed the assessment and plan of care with my nurse practitioner, Lizbeth Fam. I attest to the above note as dictated by her.
--- NOTE | 2018-07-19 15:30 | PN ---
PROGRESS NOTE Jeremiah Weston is a gentleman with history of multivessel PCI, type 2 diabetes, hypertension, hyperlipidemia, peripheral artery disease. He is doing better today. He is ambulating the room. No chest pain but had some epistaxis. I recommended to keep more moisture in the nose with some Vaseline and see if that will help his epistaxis. S1, S2 heard normally, short systolic murmur noted. Lungs reveal bilateral decent air entry. Abdomen and lower extremity exam unchanged. This gentleman has CAD, multivessel PTCA, COPD, CO2 retention, past history of smoking, diabetes, hypertension, hyperlipidemia. He will probably go back to [facility]. Cardiac-mercedes, he is stable. He can be discharged on his current medications after checking a hemoglobin and a BMP. MMODL / IJN: [id number] /
[2018-07-19 16:50] LABS: Glucose,Whole Blood 120 mg/dL (75-99)
[2018-07-19] MEDS: RIVAROXABAN 15 MG TAB PO SCH (17:36)
[2018-07-19 20:40] LABS: Glucose,Whole Blood 144 mg/dL (75-99)
[2018-07-19] MEDS ORDERED: INSULIN DETEMIR (LEVEMIR) 100 UNIT/ML SYR SQ SCH (21:00)
[2018-07-19] MEDS ORDERED: LORazepam 0.5 MG TAB PO STA (21:29)
[2018-07-19] MEDS: DIVALPROEX ER 250 MG TAB.ER.24H PO SCH (21:46)
[2018-07-19] MEDS: TAMSULOSIN 0.4 MG CAP.ER.24H PO SCH (21:46)
[2018-07-19] MEDS: ATORVASTATIN 80 MG TAB PO SCH (21:46)
[2018-07-19] MEDS: LACTOBACILLUS ACIDOPH & BULGAR 1 EACH PACKET PO SCH (21:48)
[2018-07-19] MEDS: MUPIROCIN 2% OINT 22 GM TUBE TOPICAL SCH (21:48)
--- NOTE | 2018-07-19 23:54 | PN ---
PROGRESS NOTE DATE OF SERVICE: 07/19/2018 PRESENTING COMPLAINT: Feeling INTERVAL HISTORY: This patient presented with acute metabolic encephalopathy, acute renal failure and acute CHF. Doing much better. Switched to p.o. Lasix. Patient's heavy dose of narcotics has been discontinued. Patient's pain is much better controlled. I saw him this afternoon. Also insulin was adjusted. He started to eat better. The patient has been feeling stronger when not taking his pain medications that he had been on for a while. REVIEW OF SYSTEMS: Done for constitutional, cardiovascular, GI, pulmonary; relevant findings as above. CURRENT MEDICATIONS: Reviewed. They include p.o. Lasix, Levemir 46 units at night. PHYSICAL EXAMINATION: Temperature 98.3, pulse 73, respiration 20, blood pressure 186/81; before that 149/79, pulse ox 91% on 2 L. GENERAL APPEARANCE: Lying in bed, comfortable. EYES: Pupils equal. Conjunctivae normal. NECK: JVD not raised. Mass not palpable. RESPIRATORY: Effort increased. LUNGS: Diminished breath sounds. CARDIOVASCULAR: First and second sounds normal. No edema. ABDOMEN: Distended. Soft. Liver and spleen not palpable. PSYCHIATRY: Alert and oriented x3. Mood and affect less anxious. INVESTIGATIONS: White count 11.3, hemoglobin 8. Potassium 4.5. Accu-Cheks 126, 117, 120. ProBNP was 12,400. ASSESSMENT: 1. Acute metabolic encephalopathy from hypercapnic acute respiratory failure, improved. 2. Acute renal failure, prerenal, from decreased oral intake, improved. 3. Acute on chronic congestive heart failure exacerbation from systolic and diastolic dysfunction, ejection fraction 45% to 50%. 4. Left big toe distal phalanx acute osteomyelitis. Patient completed a course of antibiotics recently. 5. Coronary artery disease with prior history of stent to the circumflex. 6. Troponin leak due to hemodynamic mismatch. No evidence of acute myocardial infarction. 7. Chronic obstructive pulmonary disease in an ex-smoker, acute exacerbation, now improved. 8. Diabetes mellitus, type 2, chronically on insulin. 9. Gastroesophageal reflux disease. 10.Hyperlipidemia. 11.Essential hypertension. 12.Primary osteoarthritis. 13.Peripheral arterial disease with stent. 14.History of amputation of right big toe. 15.Sacral wound, healed. 16.Depression and anxiety not otherwise specified. 17.Chronic left low back pain from arthritis, being followed by Dr. Cortez. 18.Hyperkalemia in a setting of acute renal failure, improved. PLAN: The patient overall is doing much better. Will keep an eye on the patient for another 24 hours. Patient is keen to go home, and I will encourage the same. Did speak to the case management director. Will also start the patient on some Ativan at night for his anxiety. That should help him. JANNETTE / MIHAIN: [id number] /
[2018-07-20] MEDS: traMADol 50 MG TAB PO PRN ×3 (02:48→14:45)
[2018-07-20] MEDS: METOPROLOL TARTRATE 50 MG TAB PO SCH (06:20)
[2018-07-20 07:07] LABS: Glucose,Whole Blood 135 mg/dL (75-99)
[2018-07-20] MEDS: PANTOPRAZOLE 40 MG TABLET PO SCH (07:50)
[2018-07-20] MEDS: ALLOPURINOL 100 MG TAB PO SCH (07:50)
[2018-07-20] MEDS: DULoxetine HCL 60 MG CAPSULE.DR PO SCH (07:50)
[2018-07-20] MEDS: FERROUS SULFATE 325 MG TAB PO SCH (07:50)
[2018-07-20] MEDS: LOSARTAN 25 MG TAB PO SCH (07:50)
[2018-07-20] MEDS: SIMETHICONE 80 MG CHEWABLE PO SCH ×2 (07:51→12:49)
[2018-07-20] MEDS: ISOSORBIDE MONONITRATE ER 30 MG TAB.ER.24H PO SCH (07:51)
[2018-07-20] MEDS: PREGABALIN 75 MG CAP PO SCH (07:51)
[2018-07-20] MEDS: FUROSEMIDE 40 MG TAB PO SCH (07:51)
[2018-07-20] MEDS: CLOPIDOGREL 75 MG TAB PO SCH (07:51)
[2018-07-20] MEDS: INSULIN ASPART (NovoLOG) 100 UNIT/ML VIAL SQ SCH ×2 (07:51→12:50)
[2018-07-20] MEDS: CITALOPRAM HYDROBROMIDE 20 MG TAB PO SCH (07:51)
[2018-07-20] MEDS: IPRATROPIUM-ALBUTEROL 3 ML NEB INHALATION SCH ×3 (07:58→15:35)
[2018-07-20 12:16] LABS: Glucose,Whole Blood 98 mg/dL (75-99)
[2018-07-20 16:06] VITALS: BP 127/52; PULSE 89; RESP 18; TEMP 98.8
--- NOTE | 2018-07-20 16:40 | P.PN ---
Subjective Progress Note Date: 07/20/18 Principal diagnosis: Acute hypoxic respiratory failure secondary to congestive heart failure, pulmonary edema, systolic dysfunction This is a 63-year-old male patient, obese, was coming into hospital because of altered mentation, hypoxemia and dyspnea. The patient was in the hospital on 07/09/2018 , same presentation. At that time the patient was treated and the patient was released to [facility] to completed a course of IV vancomycin for a MRSA toe osteomyelitis. The patient was supposed to complete a total of 6 week course be a PICC line in his right upper extremity. The patient was found to be hypoxic. He was found to be altered. For that reason was brought back to the hospital and the chest x-ray showed pulmonary edema with findings consistent with CHF, worse compared to the previous x-ray. BNP level was elevated.. The patient denied having any chest pain. He had increased lower extremity edema and this has developed over the past few days. His initial blood gas showed a pH of 7.28 with a pCO2 of 78 and pO2 of 110. The patient was placed on BiPAP fo r respiratory support. The patient was diuresed. He responded very nicely. He had excellent urine output and over the past few hours the patient was taken off the BiPAP. He is currently on oxygen 4 L per minute nasal cannula. He is breathing comfortably. No respiratory distress. No use of extremities and muscles of breathing. He denies having any chest pain. No pleurisy. No hemoptysis. His troponins were 0.04 and 0.04 respectively 2. ProBNP level was 14,500. The renal function is quite impaired with a creatinine of 1.58. The patient has a component of chronic renal failure. White cell count is not elevated. Chest x-rays consistent with pulmonary edema. He is awake. He is a lert. No focal neurological deficit. The toe wound was inspected and there is no active drainage and the posterior wound that seen over the left big toe seems to be healing at this point in time. On 07/18/2018 patient seen in follow-up on selective care unit, he is ambulating in the room, in no acute distress, he is on liters of oxygen his pulse ox is 97%, afebrile, hemodynamics are stable, no complaints of worsened shortness of breath or chest pain, patient continues on oral Lasix, was given additional dose of IV Lasix today for cardiology, maintaining negative fluid balance, weight is down by 3.1 kg in the last 24 hours. Lung sounds are clear, diminished at the bases, no rhonchi, no rales or wheezing The patient is seen today 07/19/2018 in follow-up on the selective care unit. He is currently awake and alert in no acute distress. Resting quite comfortably in bed. He is maintaining good O2 saturations in the 90s on 2 L/m per nasal cannula. He's been afebrile. The culture revealing no growth. White count 11.3. Hemoglobin 8.0. Creatinine 0.99. Bicarb 35. Currently on Lasix 40 mg by mouth twice a day. Anticoagulated with Xarelto. Chest x-ray continues to revealed bilateral airspace disease and fluid volume overload. Cardiomegaly. Patient was seen today 07/20/2018 in follow-up on the selective care unit. He is currently awake and alert in no acute distress. He is sitting up in a chair at the bedside. He denies any worsening shortness of breath, cough or jasbir estion. He is maintaining O2 saturations in the 90s on 3 L/m per nasal cannula. He is afebrile. Hemodynamically stable. Blood cultures reveal no growth. He is anxious to go home. Objective - Vital Signs Vital signs: Vital Signs Temp 98.8 F 07/20/18 15:00 Pulse 68 07/20/18 15:48 Resp 18 07/20/18 15:00 BP 127/52 07/20/18 15:00 Pulse Ox 94 L 07/20/18 15:00 Intake & Output 07/19/18 07/20/18 07/20/18 18:59 06:59 18:59 Intake Total 1560 Output Total 100 Balance 1460 Intake: Oral 1560 Output: Urine 100 Other: Voiding Method Toilet Urinal # Voids 250 2 2 # Bowel Movements 1 1 - Exam GENERAL EXAM: Obese male. Alert, active, comfortable in no apparent distress. On 3 L nasal cannula. HEAD: Normocephalic. EYES: Normal reaction of pupils, equal size. NOSE: Clear with pink turbinates. THROAT: No erythema or exudates. NECK: No masses, no JVD. CHEST: No chest wall deformity. LUNGS: Equal air entry with crackles in the bilateral posterior bases. CVS: S1 and S2 normal with no audible murmur, regular rhythm. ABDOMEN: No hepatosplenomegaly, normal bowel sounds, no guarding or rigidity. SPINE: No scoliosis or deformity SKIN: No rashes CENTRAL NERVOUS SYSTEM: No focal deficits, tone is normal in all 4 extremities. EXTREMITIES: There is no peripheral edema. No clubbing, no cyanosis. Peripheral pulses are intact. - Labs CBC & Chem 7: 07/19/18 06:00 07/19/18 06:00 Labs: Abnormal Lab Results - Last 24 Hours (Table) 07/19/18 07/19/18 07/20/18 Range/Units 16:48 20:39 07:05 POC Glucose (mg/dL) 120 H 144 H 135 H (75-99) mg/dL Microbiology - Last 24 Hours (Table) 07/16/18 20:55 Blood Culture - Preliminary Blood No Growth after 72 hours Assessment and Plan Assessment: 1 acute hypoxic respiratory failure secondary to CHF/pulmonary edema, improving 2 CHF with systolic heart failure and the patient has an ejection fraction of 45% 3 COPD 4 coronary artery disease with limited troponin leak, the patient's last cardiac catheterization was in August 2017 requiring stenting of the circumflex with 2 drug-eluting stents placed. 5 chronic kidney disease stage II 6 chronic osteomyelitis of the left big toe complete a course of IV daptomycin 7 hypertension 8 diabetes mellitus type 2 9 osteoarthritis 10 chronic anxiety/depression 11 chronic back pain 12 previous history of DVT 13 peripheral vascular disease 14 previous history of pulmonary embolism 15 chronic hypoxic respiratory failure and the patient wears oxygen between 3 and 4 L per minute nasal cannula 16 chronic back pain 17 history of TIA 2 18 history of falls 19 peptic ulcer disease 20 psoriasis 21 gout Plan: The patient was seen and evaluated by Dr. Bateman. He is cleared for discharge from the pulmonary standpoint. He will need home oxygen. Social work is involved regarding his discharge needs. He will follow-up in our office in 1-2 weeks' time. He is encouraged to call sooner with any recurrence of symptoms or other questions or concerns. I, the cosigning physician, performed a history & physical examination of the p atient. Lungs sounds with crackles in the bilateral posterior bases. Maintaining good O2 saturations in the 90s on 3 L/m per nasal cannula. I discussed the assessment and plan of care with my nurse practitioner, Lizbeth Sarwat. I attest to the above note as dictated by her.
--- NOTE | 2018-07-21 07:32 | DS ---
DISCHARGE SUMMARY DATE OF ADMISSION: 07/16/2018 DATE OF DISCHARGE: 07/20/2018 FINAL DIAGNOSES: 1. Acute metabolic encephalopathy from hypercapnic, acute respiratory failure and pain medications. 2. Acute renal failure prerenal from decreased oral intake. 3. Acute on chronic congestive heart failure exacerbation from systolic and diastolic dysfunction, ejection fraction 45% to 50%. 4. Recent left big toe distal phalanx acute osteomyelitis. The patient has completed a course of antibiotics. 5. Coronary artery disease, prior history of stent to the circumflex. 6. Troponin leak due to hemodynamic mismatch, no acute myocardial infarction. Chronic obstructive pulmonary disease in an ex-smoker, acute exacerbation, now improved. 7. Diabetes mellitus type 2, chronically on insulin. 8. Gastroesophageal reflux disease. 9. Hyperlipidemia. 10.Essential hypertension. 11.Primary osteoarthritis. 12.Peripheral arterial disease with stent. 13.History of amputation of right big toe. 14.Sacral wound healed. 15.Depression and anxiety, not otherwise specified. 16.Chronic low back pain from arthritis, being followed by Dr. Cortez. 17.Hyperkalemia in a setting acute renal failure, improved. HOSPITAL COURSE: Patient presented feeling weak, tired, lethargic, hypercapnic in acute renal failure. The patient's creatinine is 1.5, is down to 0.9 before discharge. All pain medication discontinued. Patient is counseled several times and he is doing well off the pain medications especially narcotics. The patient was assessed and very keen to go home. The patient also has CO2 retention and CHF exacerbation that improved. On examination, temperature 98.8, pulse 89, respiration 18, blood pressure 127/52, pulse ox 94% on 3 L. LUNGS: Fair air entry. PSYCH: AO x3. INVESTIGATIONS: White count 11.3, hemoglobin 8, potassium 4.5, BUN 26, creatinine 0.99. CONSULTATION: Dr. Bateman from Pulmonary; Dr. Marycruz Martinez from Cardiology. DISCHARGE MEDICATIONS: 1. Iron 325 mg p.o. daily. 2. Vitamin D3, 1000 units p.o. daily. 3. Imdur ER 30 mg p.o. daily. 4. Cozaar 25 mg p.o. daily. 5. ProAir 2 puffs q.6 p.r.n. 6. Plavix 75 mg a day. 7. Xarelto 15 mg with supper. 8. Allopurinol 100 mg p.o. daily. 9. Lopressor 100 mg p.o. b.i.d. 10.Flomax 0.4 mg p.o. daily. 11.Depakote ER 250 mg q.h.s. 12.NovoLog per scale. 13.Nitrostat 0.4 sublingual q.5 p.r.n. 14.Simethicone 80 mg p.o. q.i.d. 15.Ventolin 2.5 q.6 p.r.n. 16.Celexa 20 mg p.o. daily. 17.Cymbalta 60 mg p.o. daily. 18.Omeprazole 20 mg p.o. daily. 19.Xanax 0.25 p.o. q.12 p.r.n. 20.DuoNeb q.i.d. 21.Lyrica 150 mg p.o. b.i.d. 22.Mupirocin 2% topical q.h.s. 23.Tylenol 650 mg q.6 p.r.n. 24.Lipitor 80 mg q.h.s. 25.Lasix 40 mg p.o. b.i.d. 26.NovoLog FlexPen 8 units subcu a.c. t.i.d. 27.Insulin Lantus 46 units subcu q.h.s. Accu-Cheks q.a.c. and at bedtime. Patient's both OxyContin short-acting and long-acting have been discontinued. Follow up with Dr. Jaquez on 08/03/2018. Follow up with Dr. Marycruz Martinez in 2 weeks. Follow up with Dr. Naqvi on 07/24/2018. [facility] to follow. Home oxygen 3 L to continue. Discussion and discharge planning more than 35 minutes. MMODL / IJN: [id number] /
== END 2018-07-20 16:53 | disposition home health service (06) | DRG 291 ==
LOC: EC 19:14 → 3SCARD 22:06 → 4MS4W 07-19 16:36
PROVIDERS: ADMIT Hospitalist; ATTEND Hospitalist
PROC: 5A09357 Assistance with Respiratory Ventilation, Less than 24 Consecutive Hours, Continuous Positive Airway Pressure (ICD-10-PCS; principal; 2018-07-16)
DX: I13.0 Hypertensive heart and chronic kidney disease with heart failure and stage 1 through stage 4 chronic kidney disease, or unspecified chronic kidney disease (principal); I50.43 Acute on chronic combined systolic (congestive) and diastolic (congestive) heart failure; G93.41 Metabolic encephalopathy; J96.21 Acute and chronic respiratory failure with hypoxia; J96.22 Acute and chronic respiratory failure with hypercapnia; M86.672 Other chronic osteomyelitis, left ankle and foot; E87.2 Acidosis; J44.1 Chronic obstructive pulmonary disease with (acute) exacerbation; N17.9 Acute kidney failure, unspecified; D72.829 Elevated white blood cell count, unspecified; E11.22 Type 2 diabetes mellitus with diabetic chronic kidney disease; E11.51 Type 2 diabetes mellitus with diabetic peripheral angiopathy without gangrene; E11.40 Type 2 diabetes mellitus with diabetic neuropathy, unspecified; Z79.4 Long term (current) use of insulin; B95.62 Methicillin resistant Staphylococcus aureus infection as the cause of diseases classified elsewhere; E66.9 Obesity, unspecified; E78.00 Pure hypercholesterolemia, unspecified; E78.5 Hyperlipidemia, unspecified; E87.5 Hyperkalemia; F32.9 Major depressive disorder, single episode, unspecified; F41.9 Anxiety disorder, unspecified; G89.29 Other chronic pain; I25.10 Atherosclerotic heart disease of native coronary artery without angina pectoris; I25.2 Old myocardial infarction; K21.9 Gastro-esophageal reflux disease without esophagitis; Z87.11 Personal history of peptic ulcer disease; L40.9 Psoriasis, unspecified; M10.9 Gout, unspecified; M16.0 Bilateral primary osteoarthritis of hip; N18.2 Chronic kidney disease, stage 2 (mild); R04.0 Epistaxis; Z79.01 Long term (current) use of anticoagulants; Z79.02 Long term (current) use of antithrombotics/antiplatelets; Z79.899 Other long term (current) drug therapy; Z80.8 Family history of malignant neoplasm of other organs or systems; Z82.49 Family history of ischemic heart disease and other diseases of the circulatory system; Z86.711 Personal history of pulmonary embolism; Z86.718 Personal history of other venous thrombosis and embolism; Z86.73 Personal history of transient ischemic attack (TIA), and cerebral infarction without residual deficits; Z87.891 Personal history of nicotine dependence; Z89.411 Acquired absence of right great toe; Z91.81 History of falling; Z95.5 Presence of coronary angioplasty implant and graft; Z99.81 Dependence on supplemental oxygen; M54.5 Low back pain; R74.8 Abnormal levels of other serum enzymes; Z87.01 Personal history of pneumonia (recurrent); Z79.891 Long term (current) use of opiate analgesic
CPT/HCPCS: 36415; 36600; 71045; 71046; 80048; 80053; 80061; 82805; 83735; 83880; 84484; 85025; 85027; 85610; 85730; 87040; 93005; 94640; 94660; 96361; 96374; 96375; 99291

== ENCOUNTER 2018-07-21 11:00 | Emergency (ER) | payer MEDICARE ==
[2018-07-21 11:15] VITALS: TEMP 97.5
--- NOTE | 2018-07-21 11:56 | ED ---
General Adult HPI - General Chief complaint: Shortness of Breath Stated complaint: KRIS Time Seen by Provider: 07/21/18 11:06 Source: patient, EMS Mode of arrival: EMS Limitations: no limitations - History of Present Illness Initial comments: Dictation was produced using CDP dictation software. please excuse any grammatical, word or spelling errors. Chief Complaint: 63-year-old male with past medical history of COPD, CHF, diabetes, DVT presents with shortness breath and pain. History of Present Illness: It is 63-year-old male is brought in by EMS for shortness of breath, hypoxia and total body pain. Patient has chronic pain and states he is unable to afford surgery for his chronic pain. Patient reports that he was supposed to be transferred to the group home today however he felt like he couldn't go because of his symptoms. Instead he called EMS. Patient was just recently discharged from the hospital yesterday. Patient was admitted for hypercapnic encephalopathy, renal failure, Chronic CHF. He recently had his home oxygen increased to 3 L. EMS reports that patient was hypoxic upon initial evaluation. However had stable vital signs. They gave patient a breathing treatment. He reports that it improved. The ROS documented in this emergency department record has been reviewed and confirmed by me. Those systems with pertinent positive or negative responses have been documented in the HPI. All other systems are other negative and/or noncontributory. PHYSICAL EXAM: General Impression: Alert and oriented x3, not in acute distress HEENT: Normocephalic atraumatic, extra-ocular movements intact, pupils equal and reactive to light bilaterally, mucous membranes moist. Cardiovascular: Heart regular rate and rhythm, S1&S2 audible, no murmurs, rubs or gallops Chest: Bilateral crackles Abdomen: Bowel sounds present, abdomen soft, non-tender, non-distended, no organomegaly, multiple sites of ecchymoses Musculoskeletal: Pulses present and equal in all extremities, no peripheral edema Motor: no focal deficits noted Neurological: CN II-XII grossly intact, no focal motor or sensory deficits noted Skin: Intact with no visualized rashes Psych: Normal affect and mood ED course: 63-year-old male with multiple comorbidities presents chief complaint of total body pain and difficulty in breathing. Vital signs upon arrival shows respiratory 26, 87% on room air. Normotensive with normal heart rate. Return evaluation obtained. CBC, coag panel, metabolic panel is obtained with results around baseline. Patient has troponin 0.019 and prematurity peptide of 15,000. This also appears to be at or around patient's baseline. Patient's vitals are stable. He is stable on recommended 3 L is a cannula currently discharge summary. Discussed patient case with case supervisor who recommended t hat patient be discharged with notification to home health care. Home healthcare is aware. At this point patient is medically stable. I do not believe that patient needs criteria for inpatient admission. Patient understandable agreeable to discharge. Patient reevaluated after breathing treatments with improvement of breathing symptoms. Patient is told to continue the medications that were prescribed and upon discharge yesterday. EKG interpretation: Ventricular rate 80, normal sinus rhythm, OK interval 152, care 78, QTc 459. No OK prolongation, no QTC prolongation, no ST or T-wave changes noted. . Overall, this EKG is unremarkable - Related Data Home Medications Medication Instructions Recorded Confirmed Ferrous Sulfate [Iron (65 MG 325 mg PO DAILY 04/05/17 07/21/18 Elemental)] Cholecalciferol [Vitamin D3] 1,000 unit PO DAILY 09/19/17 07/21/18 Isosorbide Mononitrate ER [Imdur] 30 mg PO DAILY 09/19/17 07/21/18 Losartan [Cozaar] 25 mg PO DAILY 09/19/17 07/21/18 Albuterol Sulfate [Proair Hfa] 2 puff INHALATION RT-Q6H PRN 09/26/17 07/21/18 Metoprolol Tartrate [Lopressor] 100 mg PO BID@0800,1600 02/14/18 07/21/18 Tamsulosin HCl [Flomax] 0.4 mg PO DAILY 02/14/18 07/21/18 Nitroglycerin Sl Tabs [Nitrostat] 0.4 mg SUBLINGUAL Q5M PRN 06/02/18 07/21/18 Albuterol Nebulized [Ventolin 2.5 mg INHALATION RT-Q6H PRN 06/26/18 07/21/18 Nebulized] Citalopram Hydrobromide [CeleXA] 20 mg PO DAILY 06/26/18 07/21/18 DULoxetine HCL [Cymbalta] 60 mg PO DAILY 07/09/18 07/21/18 Omeprazole 20 mg PO DAILY 07/09/18 07/21/18 Mupirocin [Mupirocin 2%] 1 applic TOPICAL HS 07/17/18 07/21/18 Insulin Aspart [NovoLOG Flexpen] See Protocol SQ AC-TID 07/21/18 07/21/18 Previous Rx's Medication Instructions Recorded Clopidogrel [Plavix] 75 mg PO DAILY #30 tab 09/28/17 Rivaroxaban [Xarelto] 15 mg PO W/SUPPER #30 tab 09/28/17 Allopurinol [Zyloprim] 100 mg PO DAILY #30 tablet 11/15/17 Divalproex ER [Depakote ER] 250 mg PO HS #30 tab.er.24h 02/27/18 Simethicone Chew [Mylicon Chew] 80 mg PO QID chew 06/10/18 ALPRAZolam [Xanax] 0.25 mg PO Q12H PRN #6 tab 07/11/18 Ipratropium-Albuterol Nebulize 3 ml INHALATION RT-QID ampul.neb 07/11/18 [Duoneb 0.5 mg-3 mg/3 ml Soln] Pregabalin [Lyrica] 150 mg PO BID #6 capsule 07/11/18 Acetaminophen Tab [Tylenol Tab] 650 mg PO Q6H PRN #1 tablet 07/20/18 Atorvastatin [Lipitor] 80 mg PO HS #30 tab 07/20/18 Furosemide [Lasix] 40 mg PO BID #1 tablet 07/20/18 Insulin Glargine,Hum.rec.anlog 46 unit SQ HS #0 07/20/18 [Christina Carrillo] Allergies Allergy/AdvReac Type Severity Reaction Status Date / Time No Known Allergies Allergy Verified 07/21/18 11:31 Review of Systems ROS Statement: Those systems with pertinent positive or pertinent negative responses have been documented in the HPI. ROS Other: All systems not noted in ROS Statement are negative. Past Medical History Past Medical History: Coronary Artery Disease (CAD), Heart Failure, COPD, CVA/TIA, Diabetes Mellitus, Deep Vein Thrombosis (DVT), GERD/Reflux, Hyperlipidemia, Hypertension, Myocardial Infarction (CT), Osteoarthritis (OA), Pneumonia, Pulmonary Embolus (PE), Skin Disorder, Vascular Disorder Additional Past Medical History / Comment(s): Pt recently admitted to [facility] on 06/05/18 with L great toe distal phalanx acute osteomylitis-now at [facility] for ABX thru Picc line.and 07/09/18 for acute delirium R/T ac renal failure Other Hx: IDDM type II, neuropathy bilateral feet/legs/arms and hands, recently treated at [facility] for L great toe ulcer, January 2018 pt states was in coma/vented at [facility] d/t R 2nd toe infection, healed sacral ulcer, PVD,PAD, pt states he has been wearing oxygen ATC 3-4 L/NC, arthritis in low back and bilateral hips, chronic low back pain, gout, TIA x2, 2013 fall with brain bleed, gastric ulcer, psoriasis. Last Myocardial Infarction Date:: 08/2017 History of Any Multi-Drug Resistant Organisms: MRSA Date of last positivie culture/infection: 06/04/18 MDRO Source:: FOOT Past Surgical History: Heart Catheterization With Stent, Orthopedic Surgery, Tonsillectomy Additional Past Surgical History / Comment(s): Multiple cardiac caths and PCI with stents, L leg has 2 stents, L/R great toe debridements, 2nd R toe amp, bunionectomy-cannot recall laterality, bilateral rotator cuff surgery, colonosco py, PICC line. Past Anesthesia/Blood Transfusion Reactions: Motion Sickness Additional Past Anesthesia/Blood Transfusion Reaction / Comment(s): pt stated has had a blood transfusion in past-no known reaction Date of Last Stent Placement:: 2016 Past Psychological History: Anxiety, Depression Smoking Status: Former smoker Past Alcohol Use History: None Reported Past Drug Use History: None Reported - Past Family History Mother Family Medical History: Cancer, Coronary Artery Disease (CAD), Myocardial Infarction (CT) Additional Family Medical History / Comment(s): Mother had brain cancer. She at the age of 53 yrs from a CT Father Family Medical History: Coronary Artery Disease (CAD), Myocardial Infarction (CT) Additional Family Medical History / Comment(s): Father of a CT at the age of 63 yrs. General Exam Limitations: no limitations Course Vital Signs 07/21/18 07/21/18 07/21/18 11:06 11:13 11:30 Temperature 97.5 F L Pulse Rate 77 84 78 Respiratory 26 H 26 H 24 Rate Blood Pressure 113/73 114/77 114/77 O2 Sat by Pulse 92 L 87 L 94 L Oximetry Medical Decision Making - Lab Data Result diagrams: 07/21/18 11:19 07/21/18 11:19 Lab Results 07/21/18 07/21/18 07/21/18 Range/Units 11:19 11:19 11:19 WBC 12.4 H (3.8-10.6) k/uL RBC 3.45 L (4.30-5.90) m/uL Hgb 8.9 L (13.0-17.5) gm/dL Hct 29.5 L (39.0-53.0) % MCV 85.4 (80.0-100.0) fL MCH 25.8 (25.0-35.0) pg MCHC 30.2 L (31.0-37.0) g/dL RDW 15.7 H (11.5-15.5) % Plt Count 348 (150-450) k/uL Neutrophils % 82 % Lymphocytes % 9 % Monocytes % 6 % Eosinophils % 1 % Basophils % 1 % Neutrophils # 10.1 H (1.3-7.7) k/uL Lymphocytes # 1.1 (1.0-4.8) k/uL Monocytes # 0.8 (0-1.0) k/uL Eosinophils # 0.1 (0-0.7) k/uL Basophils # 0.1 (0-0.2) k/uL Hypochromasia Marked Poikilocytosis Slight PT (9.0-12.0) sec INR (<1.2) APTT (22.0-30.0) sec Sodium 140 (137-145) mmol/L Potassium 5.0 (3.5-5.1) mmol/L Chloride 99 (98-107) mmol/L Carbon Dioxide 31 H (22-30) mmol/L Anion Gap 10 mmol/L BUN 26 H (9-20) mg/dL Creatinine 1.03 (0.66-1.25) mg/dL Est GFR (CKD-EPI)AfAm 89 (>60 ml/min/1.73 sqM) Est GFR (CKD-EPI)NonAf 77 (>60 ml/min/1.73 sqM) Glucose 257 H (74-99) mg/dL Calcium 8.9 (8.4-10.2) mg/dL Magnesium 1.6 (1.6-2.3) mg/dL Total Bilirubin 1.3 (0.2-1.3) mg/dL AST 20 (17-59) U/L ALT 26 (21-72) U/L Alkaline Phosphatase 86 (38-126) U/L Troponin I (0.000-0.034) ng/mL NT-Pro-B Natriuret Pep 04710 pg/mL Total Protein 6.9 (6.3-8.2) g/dL Albumin 3.5 (3.5-5.0) g/dL 07/21/18 07/21/18 Range/Units 11:19 11:19 WBC (3.8-10.6) k/uL RBC (4.30-5.90) m/uL Hgb (13.0-17.5) gm/dL Hct (39.0-53.0) % MCV (80.0-100.0) fL MCH (25.0-35.0) pg MCHC (31.0-37.0) g/dL RDW (11.5-15.5) % Plt Count (150-450) k/uL Neutrophils % % Lymphocytes % % Monocytes % % Eosinophils % % Basophils % % Neutrophils # (1.3-7.7) k/uL Lymphocytes # (1.0-4.8) k/uL Monocytes # (0-1.0) k/uL Eosinophils # (0-0.7) k/uL Basophils # (0-0.2) k/uL Hypochromasia Poikilocytosis PT 16.0 H (9.0-12.0) sec INR 1.6 H (<1.2) APTT 30.8 H (22.0-30.0) sec Sodium (137-145) mmol/L Potassium (3.5-5.1) mmol/L Chloride (98-107) mmol/L Carbon Dioxide (22-30) mmol/L Anion Gap mmol/L BUN (9-20) mg/dL Creatinine (0.66-1.25) mg/dL Est GFR (CKD-EPI)AfAm (>60 ml/min/1.73 sqM) Est GFR (CKD-EPI)NonAf (>60 ml/min/1.73 sqM) Glucose (74-99) mg/dL Calcium (8.4-10.2) mg/dL Magnesium (1.6-2.3) mg/dL Total Bilirubin (0.2-1.3) mg/dL AST (17-59) U/L ALT (21-72) U/L Alkaline Phosphatase (38-126) U/L Troponin I 0.019 (0.000-0.034) ng/mL NT-Pro-B Natriuret Pep pg/mL Total Protein (6.3-8.2) g/dL Albumin (3.5-5.0) g/dL Disposition Clinical Impression: Dyspnea Disposition: HOME SELF-CARE Condition: Good Instructions (If sedation given, give patient instructions): Dyspnea (ED) Is patient prescribed a controlled substance at d/c from ED?: No Referrals: Tr Naqvi DO [Primary Care Provider] - 1-2 days Time of Disposition: 13:55
[2018-07-21 12:03] LABS: Basophils # (A) 0.1 k/uL (0-0.2); Basophils % (A) 1 %; Eosinophils # (A) 0.1 k/uL (0-0.7); Eosinophils % (A) 1 %; HCT 29.5 % (39.0-53.0); HGB 8.9 gm/dL (13.0-17.5); Hypochromasia Marked; Lymphocytes # (A) 1.1 k/uL (1.0-4.8); Lymphocytes % (A) 9 %; MCH 25.8 pg (25.0-35.0); MCHC 30.2 g/dL (31.0-37.0); MCV 85.4 fL (80.0-100.0); Mean Platelet Volume 7.2; Monocytes # (A) 0.8 k/uL (0-1.0); Monocytes % (A) 6 %; Neutrophils # (A) 10.1 k/uL (1.3-7.7); Neutrophils % (A) 82 %; Platelet Count 348 k/uL (150-450); Poikilocytosis Slight; RBC 3.45 m/uL (4.30-5.90); RDW 15.7 % (11.5-15.5); WBC 12.4 k/uL (3.8-10.6)
[2018-07-21 12:07] LABS: Albumin 3.5 g/dL (3.5-5.0); Calcium 8.9 mg/dL (8.4-10.2); Magnesium 1.6 mg/dL (1.6-2.3); Total Bilirubin 1.3 mg/dL (0.2-1.3); Total Protein 6.9 g/dL (6.3-8.2)
[2018-07-21 12:14] LABS: INR 1.6 (<1.2); Partial Thromboplastin Time 30.8 sec (22.0-30.0)
--- NOTE | 2018-07-21 12:35 | XR ---
EXAMINATION TYPE: XR chest 2V DATE OF EXAM: 07/21/2018 COMPARISON: Chest x-ray from 2 days ago HISTORY: CHF with shortness of breath. TECHNIQUE: Frontal and lateral views of the chest are obtained. FINDINGS: There is persisting cardiomegaly with small bilateral pleural effusions and central vascul ar congestion redemonstrated. No new focal airspace opacity or pneumothorax is seen bilaterally. Chela ent remains rotated to the right. Stable somewhat low lung volumes. The osseous structures are intac t. IMPRESSION: Suspect CHF exacerbation as there is cardiomegaly with central vascular congestion and sm all bilateral pleural effusions all redemonstrated. Underlying infiltrates are not excluded. No signi ficant change from most recent chest x-ray.
[2018-07-21 14:28] VITALS: BP 117/76; PULSE 88; RESP 14
== END 2018-07-21 14:27 | disposition home or self-care (01) ==
LOC: EC 11:00
DX: R06.00 Dyspnea, unspecified (principal); R09.02 Hypoxemia; R52 Pain, unspecified; I25.10 Atherosclerotic heart disease of native coronary artery without angina pectoris; I11.0 Hypertensive heart disease with heart failure; I50.9 Heart failure, unspecified; J44.9 Chronic obstructive pulmonary disease, unspecified; E11.40 Type 2 diabetes mellitus with diabetic neuropathy, unspecified; K21.9 Gastro-esophageal reflux disease without esophagitis; I25.2 Old myocardial infarction; I73.9 Peripheral vascular disease, unspecified; F41.9 Anxiety disorder, unspecified; F32.9 Major depressive disorder, single episode, unspecified; Z86.73 Personal history of transient ischemic attack (TIA), and cerebral infarction without residual deficits; Z86.711 Personal history of pulmonary embolism; Z87.01 Personal history of pneumonia (recurrent); Z86.14 Personal history of Methicillin resistant Staphylococcus aureus infection; Z95.5 Presence of coronary angioplasty implant and graft; Z87.891 Personal history of nicotine dependence; Z82.49 Family history of ischemic heart disease and other diseases of the circulatory system; Z79.4 Long term (current) use of insulin; Z79.899 Other long term (current) drug therapy
CPT/HCPCS: 36415; 71046; 80053; 83735; 83880; 84484; 85025; 85610; 85730; 93005; 99285